=== PATIENT | female | born 1945 | race Caucasian/White ===

== ENCOUNTER → 2016-10-07 | Outpatient (CLI) | payer OTHER, MEDICAID ==
[2015-01-19 10:35] VITALS: BP 118/60
--- NOTE | 2016-10-09 17:10 | MG ---
HISTORY: SCREENING Comparison: Multiple priors dating back to October 21, 2007 FINDINGS: Bilateral CC and MLO projections of the right and left breast were obtained. Scattered fibroglandul ar tissue is seen to be present without significant interval change. No suspicious architectural di stortion, mass or clustered microcalcifications can be observed to suggest malignancy. No skin thic kening or nipple retraction is appreciated. No pathological lymphadenopathy can be identified. Roge ign-appearing calcifications are noted within the right and left breast. There is a stable benign ap pearing sub cm nodule in the central posterior left breast. IMPRESSION: NO RADIOGRAPHIC EVIDENCE OF MALIGNANCY. ACR CATEGORY 2 - benign findings. FOLLOW-UP EXAM 1 YEAR. Diagnostic CAD was utilized and reviewed. * 0 (ZERO) - ASSESSMENT INCOMPLETE; ADDITIONAL IMAGING IS NEEDED. * 1/1 (ONE) - NEGATIVE. * 2/II (TWO) - BENIGN FINDINGS. * 3/III (THREE) - PROBABLY BENIGN FINDING; SHORT INTERVAL FOLLOW-UP SUGGESTED. * 4/IV (FOUR) - SUSPICIOUS ABNORMALITY; BIOPSY SHOULD BE CONSIDERED. * 5/V (FIVE) - HIGHLY SUSPICIOUS OF MALIGNANCY; BIOPSY SHOULD BE PERFORMED. A NEGATIVE X-RAY REPORT SHOULD NOT DELAY BIOPSY IF A DOMINANT OR CLINICALLY SUSPICIOUS MASS IS PRESENT; 4 TO 8 PERCENT OF CANCERS ARE NOT IDENTIFIED BY X-RAY. A NEG ATIVE REPORT MAY REINFORCE THE CLINICAL IMPRESSION. ADENOSIS AND DENSE BREASTS MAY OBSCURE AN UNDER LYING NEOPLASM. Reported By:
== END ==
LOC: RAD 13:06
PROVIDERS: ATTEND Nurse Practitioner Family
DX: Z12.31 Encounter for screening mammogram for malignant neoplasm of breast (principal)
CPT/HCPCS: 77067

== ENCOUNTER → 2016-12-17 | Outpatient (CLI) | payer OTHER, MEDICAID ==
[2015-01-19 10:35] VITALS: BP 118/60
--- NOTE | 2016-12-18 16:24 | RAD ---
HISTORY: Nontraumatic pain Study: 2 views of the left tibia and fibula. Comparison: None Findings: No acute fractures or dislocations. No significant soft tissue abnormality can be identified. IMPRESSION: 1. No acute abnormalities of the left tibia and fibula. Reported By:
== END ==
LOC: RAD 16:06
PROVIDERS: ATTEND Nurse Practitioner Family
DX: M79.605 Pain in left leg (principal)
CPT/HCPCS: 73590

== ENCOUNTER → 2017-01-09 | Outpatient (CLI) | payer OTHER, MEDICAID ==
[2015-01-19 10:35] VITALS: BP 118/60
--- NOTE | 2017-01-09 16:42 | RAD ---
Examination: Left ankle, three views History: Pain no trauma Findings: No acute fracture, dislocation or bone destruction. The ankle mortise is symmetrically pres erved. No pathologic calcification is seen. Calcaneal enthesophytes are incidentally observed. Impression: No acute ankle abnormality demonstrated. Reported By:
--- NOTE | 2017-01-09 16:48 | RAD ---
Examination: Left foot, three views History: Joint pain no trauma Findings: No evidence for fracture, bone destruction, pathologic calcification. Calcaneal spurs are p resent. There is mild degenerative change at the 1st MTP joint. Osteopenia consistent with age. Impression: No acute process identified, see above. Calcaneal enthesophytes. Reported By:
== END ==
LOC: RAD 14:15
PROVIDERS: ATTEND Nurse Practitioner Family
DX: M25.572 Pain in left ankle and joints of left foot (principal)
CPT/HCPCS: 73610; 73630

== ENCOUNTER 2017-01-11 11:26 | Emergency (ER) | payer OTHER, MEDICAID ==
[2017-01-11 11:36] VITALS: BP 149/67; BMI 32.9
--- NOTE | 2017-01-11 12:19 | DR.GENAD ---
HPI - PCP Primary Care Physician: Josef - Complaint/Symptoms Chief Complaint Doctors Comments: Patient states she got dizzy and fell in the bathroom hitting her head on the bath tube about six hours ago and states she was unable to get up. EMS came to help her but she was having severe neck, head and chest pain but refused to come to the ER. States the pain got worst and she decided to come to the emergency room. She is having xiphoid pain that is intermittent with SOB, but denies nausea vomiting, cold or cough or blurred vision. States she is a patient of Ci[facility]. States she cannot take aspirins and she has not had a nitroglycerin because the sewing line baler told her not to take ASA because she has CHF. Chief Complaint:: "I have been feeling bad the past few days. This morning I got really dizzy and fell on my left side. I tried to just let it ease off, but it has gotten too bad. My chest is hurting and I can't breath." - Nurses notes reviewed Nurses Notes Review: Yes - Source History Provided: Patient - Mode of Arrival Mode of Arrival: EMS - Timing Onset of Chief Complaint: 01/11/17 Came on: Suddenly - Duration Duration: Intermittent How lon Duration: Hours - Location Location: xiphoid chest pain; left frontal head pain - Severity Severity: Moderate - Modifying Factors Worsens:: movement Improves:: nothing PMH - PMH Past Medical History: Yes Past Medical History: Arthritis, COPD, Diabetes, GERD, Hypertension Past Surgical History: Yes Surgical History: Abdominal Surgery, Cholecystectomy, Hysterectomy, Other Past Surgical History Comment: Abdomen - Family History History of Family Medical Conditions: Yes Family Medical History: Cancer, [place], Coronary Artery Disease, Sudden Cardiac , Hypertension - Social History Does patient currently use any type of tobacco product: No Have you used tobacco products in the last 12 months: No Type of Tobacco Use: None Does any household member use tobacco: No Alcohol Use: None Do you use any recreational Drugs:: No Lives With: Alone Lives Where: Home - infectious screening In the last 2 months have you had wt loss of >10#?: NO Have you had fever, night sweats or hemotysis?: No Have you traveled outside the country in the last 6 months?: No Isolation: Standard ROS - Review of Systems Constitutional: No Symptoms Reported, Weakness. negative: See HPI, Chills, Diaphoresis, Fever, Malaise, Irritable, Fatigue, Loss of Appetite, Other Eyes: No Symptoms Reported. negative: See HPI, Eye Pain, Blurred Vision, Tearing, Discharge, Photophobia, Diplopia, Other ENTM: No Symptoms Reported Respiratoy: No Symptoms Reported, Short of Breath. negative: See HPI, Productive Cough, Non-Productive Cough, Moist Cough, Dry Cough, Hacking Cough, Barking Cough, Brassy Cough, Orthopnea, Stridor, Wheezing, Hemoptysis, Other Cardiovascular: No Symptoms Reported, Chest Pain. negative: See HPI, Edema, Palpitations, Syncope, Cyanosis, Skin Mottling, Other Gastrointestinal/Abdominal: No Symptoms Reported. negative: See HPI, Abdominal Pain, Constipation, Diarrhea, Nausea, Vomiting, Food Intolerance, Other Genitourinary: No Symptoms Reported. negative: See HPI, Discharge, Dysuria, Frequency, Hematuria, Pain, Bleeding, Other Neurological: No Symptoms Reported, Headache, Weakness. negative: See HPI, Anxiety, Depressed, Emotional Problems, Numbness, Paresthesia, Pre-existing Deficit, Seizure, Tingling, Tremors, Dizziness, Problems Walking, Speech Problem , Other Musculoskeletal: No Symptoms Reported Integumentary: No Symptoms Reported. negative: See HPI, Change in Color, Change in Hair/Nails, Dryness, Lesions, Lumps, Rash, Itching, Wound, Bruises, Juandice, Other Hematologic/Lymphatic: No Symptoms Reported. negative: See HPI, Anemia, Blood Clots, Easy Bleeding, Easy Bruising, Swollen Glands, Lymphadenopathy, Other Endocrine: No Symptoms Reported Psychiatric: No Symptoms Reported. negative: See HPI, Anxiety, Depression, Hallucinations, Excessive crying, Suicidal, Other PE - Vital Signs Vitals: Temperature 97.7 F Pulse Rate 73 Respiratory Rate 18 Blood Pressure [Right Arm] 175/78 Blood Pressure [Left Arm] 147/79 Blood Pressure 149/67 O2 Sat by Pulse Oximetry 98 - General Limitations: No Limitations General Appearance: Alert, In Distress (mild) - Head Head Exam: Normal Inspection, Atraumatic, Normocephalic - Eyes Eye exam: Normal Appearance, PERRL, EOMI. negative: Scleral Icterus, Conjunctival Injection, Nystagmus, Miosis, Mydrasis, Periorbital Swelling, Periorbital Tenderness, Other - ENT ENT Exam: Normal Exam, Normal Oropharynx, Normal External Ear Exam, Mucous Membranes Moist, TM's Normal Bilaterally External Ear Exam: Normal External Inspection TM/Canal Exam: Bilateral Normal Nose Exam: Normal Nose Exam Mouth Exam: Normal Inspection Throat Exam: Normal Inspection - Neck Neck Exam: Normal Inspection, Full ROM, Trachea Midline. negative: Tenderness, Meningismus, Lymphadenopathy, Thyromegaly, Other - Chest Chest Inspection: Normal Inspection, Symmetric Chest Wall Rise - Respiratory Respiratory Exam: Normal Lung Sounds Bilat Respiratory Exam: Bilateral Clear to Auscultation - Cardiovascular Cardiovascular Exam: Regular Rate, Normal Rhythm, Normal Heart Sounds - Abdominal Exam Abdominal Exam: Normal Inspection, Normal Bowel Sounds, Soft Abdominal Tenderness: negative: RUQ, RLQ, LUQ, LLQ, Epigastrium, Suprapubic, Diffuse, Mild, Moderate, Severe, Other - Extremities Extremities Exam: Normal Inspection, Full ROM, Normal Capillary Refill. negative: Tenderness, Edema, Joint Swelling, Calf Tenderness, Other - Back Back Exam: Normal Inspection, Full ROM - Neurologic Neurological Exam: Alert, Oriented X3, CN II-XII Intact, Reflexes Normal. negative: Normal Gait (gait not tested) - Psychiatric Psychiatric Exam: Normal Affect, Normal Mood - Skin Skin Exam: Warm, Dry, Intact, Normal Color ROR - Labs Reviewed Laboratory Results Reviewed?: Yes (all labs and x-ray results reviewed and discussed with patient ) Result Diagrams: 01/11/17 12:37 01/11/17 12:37 Laboratory: WBC 6.3 X10^3/uL (3.6-10.0) 01/11/17 12:37 RBC 4.91 X10^6/uL (3.5-5.4) 01/11/17 12:37 Hgb 10.8 g/dL (12.0-16.0) L 01/11/17 12:37 Hct 35.5 % (36.0-47.0) L 01/11/17 12:37 MCV 72.3 fL (80.0-100.0) L 01/11/17 12:37 MCH 22.1 pg (27.0-34.0) L 01/11/17 12:37 MCHC 30.5 g/dL (33.0-35.0) L 01/11/17 12:37 RDW 17.2 % (11.6-16.5) H 01/11/17 12:37 Plt Count 351 X10^3/uL (150.0-450.0) 01/11/17 12:37 Plt Count Comment Adequate (ADEQUATE) 01/11/17 12:37 MPV 7.7 fL (7.4-11.0) 01/11/17 12:37 Neut % 55.2 % (42.0-75.0) 01/11/17 12:37 Lymph % 35.0 % (21.0-51.0) 01/11/17 12:37 Wolfe % 6.7 % (0.0-13.0) 01/11/17 12:37 Eos % 2.4 % (0.9-2.9) 01/11/17 12:37 Baso % 0.7 % (0.2-1.0) 01/11/17 12:37 Neut # 3.5 x10^3/uL (2.2-4.8) 01/11/17 12:37 Lymph # 2.2 X10^3/uL (1.3-2.9) 01/11/17 12:37 Wolfe # 0.4 x10^3/uL (0.3-0.8) 01/11/17 12:37 Eos # 0.1 x10^3/uL (0.0-0.2) 01/11/17 12:37 Baso # 0.0 X10^3/uL (0.0-0.1) 01/11/17 12:37 Absolute Nucleated RBC 0.1 /100WBC 01/11/17 12:37 Plt Morphology Comment Normal (NORMAL) 01/11/17 12:37 RBC Morphology Abnormal (NORMAL) A 01/11/17 12:37 Hypochromasia 1+ A 01/11/17 12:37 Anisocytosis Slight A 01/11/17 12:37 Microcytosis 1+ A 01/11/17 12:37 INR Target Range - 01/11/17 12:37 INR 0.99 (0.8-1.3) 01/11/17 12:37 PTT 28.5 SECONDS (22.9-36.5) 01/11/17 12:37 PTT Comment - 01/11/17 12:37 Sodium 142 mmol/L (136-145) 01/11/17 12:37 Corrected Sodium 145 mmol/L (136-145) 01/11/17 12:37 Potassium 4.1 mmol/L (3.5-5.1) 01/11/17 12:37 Chloride 107 mmol/L (98-107) 01/11/17 12:37 Carbon Dioxide 29.6 mmol/L (21-32) 01/11/17 12:37 BUN 11 mg/dL (7-18) 01/11/17 12:37 Creatinine 0.81 mg/dL (0.55-1.02) 01/11/17 12:37 Est GFR (MDRD) Af Amer > 60 (>60) 01/11/17 12:37 Est GFR (MDRD) Non-Af > 60 (>60) 01/11/17 12:37 Glucose 231 mg/dL (65-99) H 01/11/17 12:37 Calcium 9.4 mg/dL (8.5-10.1) 01/11/17 12:37 Corrected Calcium TNP 01/11/17 12:37 Magnesium 2.6 mg/dL (1.7-2.9) 01/11/17 12:37 Total Bilirubin 0.40 mg/dL (0.2-1.0) 01/11/17 12:37 AST 18 Units/L (15-37) 01/11/17 12:37 ALT 19 Units/L (12-78) 01/11/17 12:37 Alkaline Phosphatase 142 Units/L (46-116) H 01/11/17 12:37 Creatine Kinase 40 Units/L (26-192) 01/11/17 12:37 CK-MB (CK-2) < 1.0 ng/mL (0-4.0) 01/11/17 12:37 CK/CKMB % Calc 2.5 % (<4) 01/11/17 12:37 Troponin I < 0.02 ng/mL (0-1.5) 01/11/17 12:37 Total Protein 8.1 g/dL (6.4-8.2) 01/11/17 12:37 Albumin 3.6 g/dL (3.4-5.0) 01/11/17 12:37 Globulin 4.5 g/dL (2.5-4.5) 01/11/17 12:37 Albumin/Globulin Ratio 0.8 Ratio (1.1-2.1) L 01/11/17 12:37 - XRAY XRAY Interpreted by: Radiologist (CT cervical spine: No evidence of acute cervical spine fracture or subluxation.), Both (CXR: No acute cardiopulmonary process identified) XRAY Findings: cT head: No evidence of acute intracranial abnormality - Diagnosis Discharge Problem: Cervical paraspinal muscle spasm, Diabetes mellitus, Cervical spine arthritis Fall at home Qualifiers: Encounter type: initial encounter Qualified Code(s): W19.XXXA - Unspecified fall, initial encounter; Y92.099 - Unspecified place in other non-institutional residence as the place of occurrence of the external cause; Y92.099 - Unspecified place in other non-institutional residence as the place of occurrence of the external cause Contusion of head Qualifiers: Encounter type: initial encounter - Discharge Plan Disposition: HOME, SELF-CARE Condition: Stable - Follow ups/Referrals Follow ups/Referrals: GALINA BAHENA [Primary Care Provider] - 3 days - Instructions Instructions: Fall Prevention in the Home, [id number], Head Injury, Adult, [id number], Degenerative Disk Disease, Type 2 Diabetes Mellitus, Adult, Easy- to-Read
[2017-01-11 12:55] LABS: BASOPHILS % (AUTO) 0.7 % (0.2-1.0); EOSINOPHILS # (AUTO) 0.1 x10^3/uL (0.0-0.2); EOSINOPHILS % (AUTO) 2.4 % (0.9-2.9); HEMATOCRIT 35.5 % (36.0-47.0); HEMOGLOBIN 10.8 g/dL (12.0-16.0); LYMPHOCYTES # (AUTO) 2.2 X10^3/uL (1.3-2.9); MEAN CORPUSCULAR HEMOGLOBIN 22.1 pg (27.0-34.0); MEAN CORPUSCULAR HGB CONC 30.5 g/dL (33.0-35.0); MEAN CORPUSCULAR VOLUME 72.3 fL (80.0-100.0); MEAN PLATELET VOLUME 7.7 fL (7.4-11.0); MONOCYTES # (AUTO) 0.4 x10^3/uL (0.3-0.8); MONOCYTES % (AUTO) 6.7 % (0.0-13.0); NEUTROPHILS # (AUTO) 3.5 x10^3/uL (2.2-4.8); NEUTROPHILS % (AUTO) 55.2 % (42.0-75.0); PLATELET COUNT 351 X10^3/uL (150.0-450.0); RED BLOOD COUNT 4.91 X10^6/uL (3.5-5.4); RED CELL DISTRIBUTION WIDTH 17.2 % (11.6-16.5); WHITE BLOOD COUNT 6.3 X10^3/uL (3.6-10.0)
[2017-01-11 13:03] LABS: PLATELET MORPHOLOGY COMMENT NORMAL (NORMAL)
[2017-01-11 13:04] LABS: ANISOCYTOSIS SLIGHT; HYPOCHROMASIA 1+; MICROCYTOSIS 1+
--- NOTE | 2017-01-11 13:06 | RAD ---
Examination: Portable AP chest History: Chest pain and SOB Comparison reference: 02/15/2014 Findings: Continued normal heart size with essentially clear lungs and pleural spaces. There is no ev idence for pneumonia, pneumothorax, pulmonary edema or large pleural effusion. Impression: No acute process identified. Reported By:
[2017-01-11 13:08] LABS: BLOOD UREA NITROGEN 11 mg/dL (7-18); CALCIUM 9.4 mg/dL (8.5-10.1); CARBON DIOXIDE 29.6 mmol/L (21-32); CHLORIDE 107 mmol/L (98-107); COR NA(FOR HYPERGLY) 145 mmol/L (136-145); CREATININE 0.81 mg/dL (0.55-1.02); SODIUM 142 mmol/L (136-145); TROPONIN I < 0.02 ng/mL (0-1.5); eGFR BLACK RACES > 60 (>60); eGFR NON BLACK RACES > 60 (>60)
[2017-01-11 13:12] LABS: ALANINE AMINOTRANSFERASE 19 Units/L (12-78); ALBUMIN 3.6 g/dL (3.4-5.0); ALKALINE PHOSPHATASE 142 Units/L (46-116); ASPARTATE AMINO TRANSFERASE 18 Units/L (15-37); CKMB % 2.5 % (<4); CREATINE KINASE 40 Units/L (26-192); CREATINE KINASE MB < 1.0 ng/mL (0-4.0); MAGNESIUM 2.6 mg/dL (1.7-2.9); TOTAL PROTEIN 8.1 g/dL (6.4-8.2)
--- NOTE | 2017-01-11 13:15 | CT ---
STUDY: CT HEAD WITHOUT CONTRAST HISTORY: Fall. Left hip pain and chest wall. COMPARISON: February 13, 2014. TECHNIQUE: Multiple axial images of the head were obtained from the skull base to the vertex without administration of IV contrast. Automated exposure control (AEC) was utilized to adjust the MA and/or kV. Findings: The sulci, cisterns and ventricles are prominent consistent with diffuse volume loss. There are confluent and scattered foci of low attenuation in the periventricular and subcortical whit e matter of both hemispheres. This is a nonspecific finding which likely represents microangiopathic change in a patient of this age. There is no evidence of acute territorial infarction, hemorrhage, mass, mass effect or midline shift. There are no abnormal extra-axial fluid collections. There is no evidence of acute osseous abnormality or significant soft tissue swelling. IMPRESSION: 1. No evidence of acute intracranial abnormality. 2. Nonspecific white matter change and volume loss as described. 3. If there remains strong clinical concern for acute intracranial abnormality, then an MRI examinati on should be considered for further evaluation. Reported By:
--- NOTE | 2017-01-11 13:35 | CT ---
STUDY: CT OF THE CERVICAL SPINE HISTORY: Patient felt dizzy this morning and fell on left side. Left hip and chest wall pain. Technique: Multiple axial images of the cervical spine were obtained from the skull base to the thora cic inlet without administration of IV contrast. Sagittal and coronal reformats were performed and r eviewed. Automated exposure control (AEC) was utilized to adjust the MA and/or kV. Comparison: None. Findings: There is straightening of usual cervical lordosis. There is subtle grade 1 anterolisthesis of C4 on C 5. There is multilevel degenerative disc disease and degenerative endplate change. This is probably m ost notable at C6/7. There is no evidence of acute fracture or subluxation. Facet alignment is within normal limits bilaterally. There is multilevel facet arthropathy. The spinous processes are intact. There is no significant prevertebral soft tissue swelling. The lateral masses of C1, and the C1/C2 re lationship are normal. The odontoid process is intact. The occipital condyles and their relationship with C1 are normal. IMPRESSION: 1. No evidence of acute cervical spine fracture or subluxation. 2. Straightening of the usual cervical lordosis. This finding may be positional or seceondary to mus melinda spasm. Clinical correlation is recommended. 3. Multilevel cervical spondylosis. Reported By:
== END 2017-01-11 15:26 | disposition home or self-care (01) ==
LOC: ER 11:28
DX: S00.93XA Contusion of unspecified part of head, initial encounter (principal); M62.838 Other muscle spasm; E11.9 Type 2 diabetes mellitus without complications; M46.92 Unspecified inflammatory spondylopathy, cervical region; R07.89 Other chest pain; W19.XXXA Unspecified fall, initial encounter; Y92.099 Unspecified place in other non-institutional residence as the place of occurrence of the external cause
CPT/HCPCS: 36415; 70450; 71010; 72125; 80053; 82550; 82553; 83735; 84484; 85025; 85610; 85730; 93005; 93010; 99283

== ENCOUNTER 2017-02-13 09:14 | Day surgery (SDC) | payer OTHER, MEDICAID ==
[~2017-02-13 09:14] MED LIST: DIPRIVAN VIAL 20 ML ONE
[2017-02-13] MEDS ORDERED: D5 LR 1000 ML 1,000 ML IV ONE (09:31)
[2017-02-13] MEDS ORDERED: NS 1000 ML 1,000 ML ONE (09:46)
[2017-02-13] MEDS ORDERED: DIPRIVAN VIAL 20 ML ONE (10:33)
[2017-02-13 11:47] VITALS: BP 110/71
== END 2017-02-13 11:10 | disposition home or self-care (01) ==
LOC: SURG1 09:14
PROVIDERS: ATTEND Internal Medicine Gastroenterology
PROC: 0D757ZZ Dilation of Esophagus, Via Natural or Artificial Opening (ICD-10-PCS; principal; 2017-02-13 12:00)
PROC: 0DB68ZX Excision of Stomach, Via Natural or Artificial Opening Endoscopic, Diagnostic (ICD-10-PCS; principal; 2017-02-13 12:00)
PROC: 0DJ08ZZ Inspection of Upper Intestinal Tract, Via Natural or Artificial Opening Endoscopic (ICD-10-PCS; principal; 2017-02-13 12:00)
DX: R13.19 Other dysphagia (principal); R10.13 Epigastric pain; R11.0 Nausea; K21.9 Gastro-esophageal reflux disease without esophagitis; K31.89 Other diseases of stomach and duodenum; K44.9 Diaphragmatic hernia without obstruction or gangrene; K20.8 Other esophagitis; K22.2 Esophageal obstruction
CPT/HCPCS: 99100; A4217; J3490; J7120

== ENCOUNTER 2017-02-17 21:13 | Emergency (ER) | payer OTHER, MEDICAID ==
[2017-02-17 21:25] VITALS: BMI 32.1
--- NOTE | 2017-02-17 21:39 | DR.GENAD ---
HPI - PCP Primary Care Physician: Lot - Complaint/Symptoms Chief Complaint Doctors Comments: Patient states that she bent forward over the commode heard a pop of the right lower ribs. The ain is 10, sharp, worse with movement. Chief Complaint:: RT side/rib pain. - Source History Provided: Patient - Mode of Arrival Mode of Arrival: Ambulatory - Timing Onset of Chief Complaint: 02/17/17 PMH - PMH Past Medical History: Yes Past Medical History: Arthritis, CHF, COPD, CVA, Diabetes, GERD Past Medical History Comment: blind, fibromyalgia Past Surgical History: Yes Surgical History: Cholecystectomy, Hysterectomy - Family History History of Family Medical Conditions: No Family Medical History: Cancer, [place], Coronary Artery Disease, Sudden Cardiac , Hypertension - Social History Does patient currently use any type of tobacco product: No Have you used tobacco products in the last 12 months: No Type of Tobacco Use: None Alcohol Use: None Do you use any recreational Drugs:: No Lives With: Alone Lives Where: Home - infectious screening In the last 2 months have you had wt loss of >10#?: NO Have you had fever, night sweats or hemotysis?: No Have you traveled outside the country in the last 6 months?: No ROS - Review of Systems Eyes: No Symptoms Reported ENTM: No Symptoms Reported Respiratoy: No Symptoms Reported Cardiovascular: No Symptoms Reported Gastrointestinal/Abdominal: No Symptoms Reported Genitourinary: No Symptoms Reported Neurological: No Symptoms Reported Musculoskeletal: Rib(s) (right anterior lateral lower ribs) Integumentary: No Symptoms Reported Hematologic/Lymphatic: No Symptoms Reported Endocrine: No Symptoms Reported Psychiatric: No Symptoms Reported All Other Systems: Reviewed and Negative PE - Vital Signs Vitals: Temperature 98.7 F Pulse Rate [Right Brachial] 57 Pulse Rate 86 Respiratory Rate 16 Blood Pressure [Right Arm] 169/70 Blood Pressure [Left Arm] 147/79 Blood Pressure 150/72 O2 Sat by Pulse Oximetry 93 - General General Appearance: Alert, In No Apparent Distress - Head Head Exam: Normal Inspection, Atraumatic - Eyes Eye exam: Normal Appearance, PERRL, EOMI - ENT ENT Exam: Normal Exam External Ear Exam: Normal External Inspection TM/Canal Exam: Bilateral Normal Nose Exam: Normal Nose Exam Mouth Exam: Normal Inspection Throat Exam: Normal Inspection - Neck Neck Exam: Normal Inspection - Chest Chest Inspection: Normal Inspection, Tenderness (Tenderness to right anterior later lower ribs) - Respiratory Respiratory Exam: Normal Lung Sounds Bilat Respiratory Exam: Bilateral Clear to Auscultation - Cardiovascular Cardiovascular Exam: Regular Rate, Normal Rhythm - Abdominal Exam Abdominal Exam: Normal Inspection Abdominal Tenderness: negative: RUQ, RLQ, LUQ, LLQ, Epigastrium, Suprapubic, Diffuse, Mild, Moderate, Severe, Other - Extremities Extremities Exam: Normal Inspection - Back Back Exam: Normal Inspection, Full ROM - Neurologic Neurological Exam: Alert, Oriented X3, CN II-XII Intact - Psychiatric Psychiatric Exam: Normal Affect - Skin Skin Exam: Warm, Dry Course - Education/Counseling Educated On: Treatment, Diagnosis, Prognosis, Needs for Follow Up ROR - XRAY XRAY Interpreted by: Radiologist (Rib series: No displaced right sided rib fractures are identified. The heart size is normal and the lungs are clear without pneumothorax. Impression: No displaced rib fracture or acute chest process.) - Diagnosis Discharge Problem: Contusion of rib on right side Qualifiers: Encounter type: initial encounter Qualified Code(s): S20.211A - Contusion of right front wall of thorax, initial encounter - Discharge Plan Condition: Stable - Follow ups/Referrals Follow ups/Referrals: NFD,None [Primary Care Provider] - 3 days - Instructions
[2017-02-17] MEDS ORDERED: TORADOL 60 MG VIAL IM ONE (21:44)
[2017-02-17] MEDS ORDERED: TORADOL 60 MG VIAL ONE (21:46)
[2017-02-17 22:32] VITALS: BP 169/70
--- NOTE | 2017-02-17 22:40 | RAD ---
Right rib series, 5 views Indication: Right-sided rib pain after bending forward Comparison: None Findings: No displaced right-sided rib fractures are identified. The heart size is normal and the sheri gs are clear without pneumothorax. Impression: No displaced rib fracture or acute chest process. Reported By:
== END 2017-02-17 22:52 | disposition home or self-care (01) ==
LOC: ER 21:33
DX: S20.211A Contusion of right front wall of thorax, initial encounter (principal); Y33.XXXA Other specified events, undetermined intent, initial encounter; Y92.9 Unspecified place or not applicable
CPT/HCPCS: 71111; 96372; 99282; J1885

== ENCOUNTER 2017-04-03 11:13 | Observation (INO) | payer OTHER, MEDICAID ==
[2017-04-03 11:44] LABS: BASOPHILS % (AUTO) 0.7 % (0.2-1.0); EOSINOPHILS # (AUTO) 0.1 x10^3/uL (0.0-0.2); EOSINOPHILS % (AUTO) 1.7 % (0.9-2.9); HEMOGLOBIN 9.1 g/dL (12.0-16.0); LYMPHOCYTES # (AUTO) 1.8 X10^3/uL (1.3-2.9); LYMPHOCYTES % (AUTO) 28.3 % (21.0-51.0); MEAN CORPUSCULAR HEMOGLOBIN 21.3 pg (27.0-34.0); MEAN CORPUSCULAR HGB CONC 30.2 g/dL (33.0-35.0); MEAN CORPUSCULAR VOLUME 70.6 fL (80.0-100.0); MEAN PLATELET VOLUME 7.7 fL (7.4-11.0); MONOCYTES # (AUTO) 0.4 x10^3/uL (0.3-0.8); MONOCYTES % (AUTO) 5.6 % (0.0-13.0); NEUTROPHILS % (AUTO) 63.7 % (42.0-75.0); PLATELET COUNT 352 X10^3/uL (150.0-450.0); RED BLOOD COUNT 4.25 X10^6/uL (3.5-5.4); RED CELL DISTRIBUTION WIDTH 17.8 % (11.6-16.5); WHITE BLOOD COUNT 6.3 X10^3/uL (3.6-10.0)
[2017-04-03 11:52] LABS: BLOOD UREA NITROGEN 9 mg/dL (7-18); CALCIUM 8.6 mg/dL (8.5-10.1); CARBON DIOXIDE 28.5 mmol/L (21-32); CHLORIDE 104 mmol/L (98-107); COR NA(FOR HYPERGLY) 143 mmol/L (136-145); CREATININE 0.83 mg/dL (0.55-1.02); SODIUM 139 mmol/L (136-145); TROPONIN I < 0.02 ng/mL (0-1.5); eGFR BLACK RACES > 60 (>60); eGFR NON BLACK RACES > 60 (>60)
[2017-04-03 11:54] LABS: HYPOCHROMASIA 2+; MICROCYTOSIS SLIGHT; PLATELET MORPHOLOGY COMMENT NORMAL (NORMAL)
[2017-04-03 11:56] LABS: B-TYPE NATRIURETIC PEPTIDE 57.6 pg/mL (0-79)
--- NOTE | 2017-04-03 12:03 | RAD ---
HISTORY: Chest pain, left-sided chest pain radiating into the neck. Study: Single-view chest, done portably Comparison: 02/17/2017. Findings: Cardiac monitoring electrodes are noted on the chest. Trachea is midline. The heart size is upper nor mal with aortic uncoiling. Stable increased interstitial markings are present involving both lungs. N o consolidation or pneumothorax is seen. Both costophrenic angles are cut off on the chest image. Oss eous structures are intact. IMPRESSION: Hypertensive configuration. Stable increased interstitial markings involving both lungs. No acute abnormality is seen. Reported By:
[2017-04-03 12:06] LABS: ALANINE AMINOTRANSFERASE 14 Units/L (12-78); ALKALINE PHOSPHATASE 159 Units/L (46-116); ASPARTATE AMINO TRANSFERASE 19 Units/L (15-37); CKMB % 2.2 % (<4); COR CA(FOR HYPOALB) 9.4 mg/dL (8.5-10.1); CREATINE KINASE 45 Units/L (26-192); CREATINE KINASE MB < 1.0 ng/mL (0-4.0); MAGNESIUM 2.1 mg/dL (1.7-2.9); TOTAL PROTEIN 7.1 g/dL (6.4-8.2)
--- NOTE | 2017-04-03 12:25 | DR.CP ---
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 Relieved with nitro, painfree on arrival but has a headache Chief Complaint:: pt stated she was doing laundry and started having chest pain. ems gave her 2 nitro and she is now pain free but is short of breath. - Reviewed Nurses Notes Review: Yes - Source History Provided: Patient - Mode of Arrival Mode of Arrival: EMS - Timing Onset of Chief Complaint: 04/03/17 Came on: Suddenly Pain: Resolved - Location Chest Pain Radiation Location: Left Jaw - Context Prehospital Care: Oxygen, IV, Monitor, SL Nitro - Quality Quality: Heavy - Severity Severity: Moderate - Modifying Factors Worsens: Nothing Impoves: NTG - Associated Signs and Symptoms Associated Signs and Symptoms: Shortness of Breath. denies: Palpitations, Diaphoresis, Abdominal Pain, Nausea/Vomiting, Calf Pain/Swelling, Chest Rash PMH - PMH Past Medical History: Yes Past Medical History: Arthritis, CHF, COPD, CVA, Diabetes, GERD Past Medical History Comment: clean cardiac cath 2-3 yrs ago per pt Past Surgical History: Yes Surgical History: Cholecystectomy, Hysterectomy - Family History History of Family Medical Conditions: Yes Family Medical History: Cancer, [place], Coronary Artery Disease, Sudden Cardiac , Hypertension - Social History Does patient currently use any type of tobacco product: No Have you used tobacco products in the last 12 months: No Type of Tobacco Use: None Does any household member use tobacco: No Alcohol Use: None Do you use any recreational Drugs:: No Lives With: Family Lives Where: Home - infectious screening In the last 2 months have you had wt loss of >10#?: NO Have you had fever, night sweats or hemotysis?: No Have you traveled outside the country in the last 6 months?: No Isolation: Standard ROS - Review of Systems Constitutional: negative: Diaphoresis, Fever, Malaise, Weakness Eyes: No Symptoms Reported ENTM: No Symptoms Reported Respiratoy: Short of Breath Cardiovascular: Chest Pain. negative: Edema, Palpitations Gastrointestinal/Abdominal: Other (had EGD several weeks ago, ?gastritis and ? bacterial inf in stomach, hiatal hernia). negative: Nausea, Vomiting Neurological: Anxiety, Depressed, Emotional Problems, Other (recently lost spouse of 57 yrs) Musculoskeletal: No Symptoms Reported Integumentary: No Symptoms Reported Hematologic/Lymphatic: No Symptoms Reported Endocrine: No Symptoms Reported Psychiatric: Anxiety, Depression, Excessive crying All Other Systems: Reviewed and Negative PE - Vitals Vitals: Temperature 99.1 F Pulse Rate 71 Respiratory Rate 16 Blood Pressure [Right Arm] 169/70 Blood Pressure [Left Arm] 147/79 Blood Pressure 149/79 O2 Sat by Pulse Oximetry 98 - General Limitations: No Limitations General Appearance: Alert, In No Apparent Distress, Obese. negative: Appears Intoxicated, Anxious, Lethargic, Obtunded, In Distress - Head Head Exam: Normal Inspection, Normocephalic - Eyes Eye exam: Normal Appearance - ENT ENT Exam: Normal Exam - Chest Chest Inspection: Normal Inspection, Symmetric Chest Wall Rise. negative: Tenderness - Respiratory Respiratory Exam: Normal Lung Sounds Bilat. negative: Accessory Muscle Use, Chest Wall Tenderness Respiratory Exam: Bilateral Clear to Auscultation - Cardiovascular Cardiovascular Exam: Regular Rate, Normal Rhythm, Normal Heart Sounds. negative : Systolic Murmur, Diastolic Murmur, Rubs, Gallop, Clicks Pulse: Normal, Radial Edema: Normal - Abdominal Exam Abdominal Exam: Normal Inspection, Normal Bowel Sounds, Soft. negative: Tenderness, Guarding, Rebound - Extremities Extremities Exam: Normal Inspection, Full ROM. negative: Tenderness, Edema - Neurologic Neurological Exam: Alert, Oriented X3 - Psychiatric Psychiatric Exam: Normal Affect, Normal Mood ROR - Labs Reviewed Laboratory Results Reviewed?: Yes (cardiacs all ok. BNP normal ) Result Diagrams: 04/03/17 11:26 04/03/17 11:26 Laboratory: WBC 6.3 X10^3/uL (3.6-10.0) 04/03/17 11: RBC 4.25 X10^6/uL (3.5-5.4) 04/03/17 11:26 Hgb 9.1 g/dL (12.0-16.0) L 04/03/17 11:26 Hct 30.0 % (36.0-47.0) L 04/03/17 11:26 MCV 70.6 fL (80.0-100.0) L 04/03/17 11:26 MCH 21.3 pg (27.0-34.0) L 04/03/17 11: MCHC 30.2 g/dL (33.0-35.0) L 04/03/17 11:26 RDW 17.8 % (11.6-16.5) H 04/03/17 11:26 Plt Count 352 X10^3/uL (150.0-450.0) 04/03/17 11:26 Plt Count Comment Adequate (ADEQUATE) 04/03/17 11:26 MPV 7.7 fL (7.4-11.0) 04/03/17 11:26 Neut % 63.7 % (42.0-75.0) 04/03/17 11:26 Lymph % 28.3 % (21.0-51.0) 04/03/17 11:26 [place] % 5.6 % (0.0-13.0) 04/03/17 11:26 Eos % 1.7 % (0.9-2.9) 04/03/17 11:26 Baso % 0.7 % (0.2-1.0) 04/03/17 11:26 Neut # 4.0 x10^3/uL (2.2-4.8) 04/03/17 11:26 Lymph # 1.8 X10^3/uL (1.3-2.9) 04/03/17 11:26 [place] # 0.4 x10^3/uL (0.3-0.8) 04/03/17 11:26 Eos # 0.1 x10^3/uL (0.0-0.2) 04/03/17 11:26 Baso # 0.0 X10^3/uL (0.0-0.1) 04/03/17 11:26 Absolute Nucleated RBC 0.0 /100WBC 04/03/17 11:26 Plt Morphology Comment Normal (NORMAL) 04/03/17 11:26 RBC Morphology Abnormal (NORMAL) A 04/03/17 11:26 Hypochromasia 2+ A 04/03/17 11:26 Microcytosis Slight A 04/03/17 11:26 INR Target Range - 04/03/17 11:26 INR 0.98 (0.8-1.3) 04/03/17 11:26 PTT 29.1 SECONDS (22.9-36.5) 04/03/17 11:26 PTT Comment - 04/03/17 11:26 Sodium 139 mmol/L (136-145) 04/03/17 11:26 Corrected Sodium 143 mmol/L (136-145) 04/03/17 11:26 Potassium 3.6 mmol/L (3.5-5.1) 04/03/17 11:26 Chloride 104 mmol/L (98-107) 04/03/17 11:26 Carbon Dioxide 28.5 mmol/L (21-32) 04/03/17 11:26 BUN 9 mg/dL (7-18) 04/03/17 11:26 Creatinine 0.83 mg/dL (0.55-1.02) 04/03/17 11:26 Est GFR (MDRD) Af Amer > 60 (>60) 04/03/17 11:26 Est GFR (MDRD) Non-Af > 60 (>60) 04/03/17 11:26 Glucose 266 mg/dL (65-99) H 04/03/17 11:26 Calcium 8.6 mg/dL (8.5-10.1) 04/03/17 11:26 Corrected Calcium 9.4 mg/dL (8.5-10.1) 04/03/17 11:26 Magnesium 2.1 mg/dL (1.7-2.9) 04/03/17 11:26 Total Bilirubin 0.20 mg/dL (0.2-1.0) 04/03/17 11:26 AST 19 Units/L (15-37) 04/03/17 11:26 ALT 14 Units/L (12-78) 04/03/17 11:26 Alkaline Phosphatase 159 Units/L (46-116) H 04/03/17 11:26 Creatine Kinase 45 Units/L (26-192) 04/03/17 11:26 CK-MB (CK-2) < 1.0 ng/mL (0-4.0) 04/03/17 11:26 CK/CKMB % Calc 2.2 % (<4) 04/03/17 11:26 Troponin I < 0.02 ng/mL (0-1.5) 04/03/17 11:26 B-Natriuretic Peptide 57.6 pg/mL (0-79) 04/03/17 11:26 Total Protein 7.1 g/dL (6.4-8.2) 04/03/17 11:26 Albumin 3.0 g/dL (3.4-5.0) L 04/03/17 11:26 Globulin 4.1 g/dL (2.5-4.5) 04/03/17 11:26 Albumin/Globulin Ratio 0.7 Ratio (1.1-2.1) L 04/03/17 11:26 - XRAY XRAY Interpreted by: Radiologist XRAY Findings: nothing acute on PCXR - EKG Compared to prior EKG Dated: 04/03/17 Additional Notes - Additional Notes Additional Notes: nothing acute seen on EKG - Discharge Plan Condition: Stable - Follow ups/Referrals Follow ups/Referrals: GALINA VARGAS [Primary Care Provider] - 3 days - Instructions
[2017-04-03] MEDS ORDERED: NITROSTAT SL PRN (12:55)
[2017-04-03] MEDS: LOVENOX INJ 40 MG SYR SC SCH ×2 (16:16→20:52)
[2017-04-03] MEDS: NORCO 7.5/325 MG TAB PO PRN ×2 (16:17→22:24)
[2017-04-03 18:01] LABS: CKMB % 3.5 % (<4); CREATINE KINASE 40 Units/L (26-192); CREATINE KINASE MB 1.4 ng/mL (0-4.0); TROPONIN I < 0.02 ng/mL (0-1.5)
[2017-04-03] MEDS: SNACK - Diabetic Appropriate PO SCH (20:52)
[2017-04-03] MEDS: HumuLIN R SUBCUT PRN (21:14)
[2017-04-04 00:03] LABS: CKMB % 2.6 % (<4); TROPONIN I 0.1 ng/mL (0-1.5)
[2017-04-04] MEDS: VISTARIL PO PRN (00:19)
[2017-04-04 04:24] LABS: BASOPHILS # (AUTO) 0.1 X10^3/uL (0.0-0.1); BASOPHILS % (AUTO) 0.7 % (0.2-1.0); EOSINOPHILS # (AUTO) 0.1 x10^3/uL (0.0-0.2); EOSINOPHILS % (AUTO) 1.8 % (0.9-2.9); HEMATOCRIT 29.6 % (36.0-47.0); HEMOGLOBIN 9.1 g/dL (12.0-16.0); LYMPHOCYTES # (AUTO) 3.3 X10^3/uL (1.3-2.9); LYMPHOCYTES % (AUTO) 42.4 % (21.0-51.0); MEAN CORPUSCULAR HEMOGLOBIN 21.6 pg (27.0-34.0); MEAN CORPUSCULAR HGB CONC 30.7 g/dL (33.0-35.0); MEAN CORPUSCULAR VOLUME 70.5 fL (80.0-100.0); MEAN PLATELET VOLUME 7.6 fL (7.4-11.0); MONOCYTES # (AUTO) 0.4 x10^3/uL (0.3-0.8); MONOCYTES % (AUTO) 4.6 % (0.0-13.0); NEUTROPHILS # (AUTO) 3.9 x10^3/uL (2.2-4.8); NEUTROPHILS % (AUTO) 50.5 % (42.0-75.0); PLATELET COUNT 340 X10^3/uL (150.0-450.0); WHITE BLOOD COUNT 7.7 X10^3/uL (3.6-10.0)
[2017-04-04 04:39] LABS: HYPOCHROMASIA 2+; MICROCYTOSIS SLIGHT; PLATELET MORPHOLOGY COMMENT NORMAL (NORMAL)
[2017-04-04 04:40] LABS: ALANINE AMINOTRANSFERASE 14 Units/L (12-78); ALBUMIN 2.9 g/dL (3.4-5.0); ALKALINE PHOSPHATASE 137 Units/L (46-116); ASPARTATE AMINO TRANSFERASE 11 Units/L (15-37); BLOOD UREA NITROGEN 7 mg/dL (7-18); CALCIUM 8.4 mg/dL (8.5-10.1); CARBON DIOXIDE 30.6 mmol/L (21-32); CHLORIDE 107 mmol/L (98-107); CHOL/HDL RATIO 4.1 (0.0-5.0); CHOLESTEROL 157 mg/dL (0-200); COR CA(FOR HYPOALB) 9.3 mg/dL (8.5-10.1); COR NA(FOR HYPERGLY) 145 mmol/L (136-145); CREATININE 0.73 mg/dL (0.55-1.02); HDL CHOLESTEROL 38 mg/dL (40-60); SODIUM 142 mmol/L (136-145); TOTAL PROTEIN 6.8 g/dL (6.4-8.2); TRIGLYCERIDES 154 mg/dL (0-150); eGFR BLACK RACES > 60 (>60); eGFR NON BLACK RACES > 60 (>60)
[2017-04-04] MEDS: HumuLIN R SUBCUT PRN ×4 (06:53→21:45)
[2017-04-04] MEDS: NORCO 7.5/325 MG TAB PO PRN ×3 (06:58→22:33)
[2017-04-04] MEDS: LOVENOX INJ 40 MG SYR SC SCH ×2 (09:00→21:34)
[2017-04-04 09:28] VITALS: BMI 30.8
[2017-04-04] MEDS: ZOFRAN TAB 4 MG PO PRN (15:22)
[2017-04-04] MEDS: ZANTAC PO SCH (15:22)
--- NOTE | 2017-04-04 15:25 | DR.H&P ---
H&P - History & Physical for Day of: H&P Date: 04/03/17 - Chief Complaint Chief Complaint: CP - Allergies Allergies/Adverse Reactions: Allergies Allergy/AdvReac Type Severity Reaction Status Date / Time ciprofloxacin Allergy Verified 01/11/17 11:29 codeine Allergy Verified 01/11/17 11:29 levofloxacin Allergy Verified 01/11/17 11:29 morphine Allergy Verified 01/11/17 11:29 niacin Allergy Verified 01/11/17 11:29 promethazine Allergy Verified 01/11/17 11:29 topiramate Allergy Verified 01/11/17 11:29 - History of Present Illness History of Present Illness: 72white female who is an ER admission after presenting with complaints of chest pain patient was brought via EMS. Patient states she had onset of chest pain while doing laundry. Pain was relieved with nitroglycerin. Patient has a past medical history of COPD, coronary artery disease, diabetes, and arthritis. Plan to admit patient to rule out acute [place]. - Past Medical History Past Medical History: Arthritis, CHF, COPD, CVA, Diabetes, GERD - Past Surgical History Surgical History: Cholecystectomy, Hysterectomy, Other - Family History Family Medical History: Cancer, [place], Coronary Artery Disease, Sudden Cardiac , Hypertension - Social History Does patient currently use any type of tobacco product: No Have you used tobacco products in the last 12 months: No Type of Tobacco Use: None Does any household member use tobacco: No Alcohol Use: None Drug Use: None - Medications Home Medications: Clotrimazole/Betamethasone Dip [Clotrimazole-Betamethasone Crm] 1 applic TOP BID 04/03/17 [History Confirmed 04/03/17] Fenofibrate [TRICOR 160 MG *] 160 mg PO HS 04/03/17 [History Confirmed 04/03/17] Furosemide [LASIX TAB 20 MG *] 20 mg PO DAILY 04/03/17 [History Confirmed ] Gi Cocktail [LEVSIN/Maalox/Lidoc Visc (GI COCKTAIL) *] 30 ml PO TID 04/03/17 [ History Confirmed 04/03/17] Hydrocodone-Acet 7.5 mg/325 mg [NORCO 7.5 MG/325 MG *] 1 tab PO TID PRN [History Confirmed 04/03/17] - Review of Systems Constitutional: Weakness Eyes: No Symptoms Reported ENT: No Symptoms Reported Respiratory: Shortness of Breath Cardiovascular: Chest Pain, Edema, Light Headedness Gastrointestinal: No Symptoms Reported Genitourinary: No Symptoms Reported Musculoskeletal: Back Pain Skin: No Symptoms Reported Neurological: Weakness - Physical Exam Vital Signs: Temperature 96.6 F Pulse Rate [Left Radial] 62 Pulse Rate 71 Respiratory Rate 18 Blood Pressure [Right Arm] 182/77 Blood Pressure [Left Arm] 147/79 Blood Pressure 149/79 O2 Sat by Pulse Oximetry 97 Oriented: Normal Eyes: Normal Ear: Normal Nose: Normal Throat: Normal Respiratory: RLL Diminished, LLL Diminished Cardiovascular: Normal. negative: Edema : Normal Auscultation: Bowel Sounds: Normal Palpation: Normal Tenderness: Normal Skin: Decreased Turgur, Bruising Musculoskeletal: Right, Left, Shoulder, Back:Thoracic, Back:Lumbar Psychiatric: Anxiety, Depression Speech Pattern: Clear, Appropriate - Assessment/Plan (1) Chest pain Status: Acute Plan: ADMIT, SERIAL CE AND EKG'S. SUPPLEMENTAL O2, BP MONITORING. SSI, RESUME HOME MEDS. PAIN CONTROL (2) COPD (chronic obstructive pulmonary disease) Status: Chronic (3) Diabetes mellitus Status: Chronic (4) GERD (gastroesophageal reflux disease) Status: Chronic (5) Hypertension Status: Chronic
[2017-04-04] MEDS ORDERED: ATIVAN TAB 1 MG PO PRN (15:27)
--- NOTE | 2017-04-04 15:34 | PCM.PROG ---
Progress Note - Progress Note for Day of Date: 04/04/17 - Subjective Subjective: the patient is a 72-year-old white female who was admitted via ER last night with chest pain. Patient had serial cardiac enzymes and EKGs. This morning patient denies chest pain however continues to complain of weakness. Patient has a history of COPD plan to continue supplemental O2 current IV medication regimen and repeat a.m. labs. - Past Medical Family Social History Past Med/Fam/Surg Hx: No changes since H&P Allergies: Allergies ciprofloxacin Allergy (Verified 01/11/17 11:29) codeine Allergy (Verified 01/11/17 11:29) levofloxacin Allergy (Verified 01/11/17 11:29) morphine Allergy (Verified 01/11/17 11:29) niacin Allergy (Verified 01/11/17 11:) promethazine Allergy (Verified 01/11/17 11:29) topiramate Allergy (Verified 01/11/17 11:29) - Review of Systems ROS: No change since H&P - Vital Signs and I&O's Vital Signs: Temperature 96.6 F Pulse Rate [Left Radial] 62 Pulse Rate 71 Respiratory Rate 18 Blood Pressure [Right Arm] 182/77 Blood Pressure [Left Arm] 147/79 Blood Pressure 149/79 O2 Sat by Pulse Oximetry 97 Intake and Output: Intake & Output 04/02/17 04/03/17 04/04/17 04/05/17 11:59 11:59 11:59 11:59 Intake Total 1312 Balance 1312 - Physical Exam Oriented: Normal Eyes: Normal Ear: Normal Nose: Normal Throat: Normal Cardiovascular: Normal. negative: Edema : Normal Auscultation: Bowel Sounds: Normal Tenderness: Normal Skin: Decreased Turgur, Bruising Musculoskeletal: Right, Left, Shoulder, Back:Thoracic, Back:Lumbar Psychiatric: Anxiety, Depression Speech Pattern: Clear, Appropriate - Laboratory and Diagnostics Result Diagrams: 04/04/17 03:55 04/04/17 03:55 Labs: Laboratory WBC 7.7 X10^3/uL (3.6-10.0) 04/04/17 03:55 RBC 4.20 X10^6/uL (3.5-5.4) 04/04/17 03:55 Hgb 9.1 g/dL (12.0-16.0) L 04/04/17 03:55 Hct 29.6 % (36.0-47.0) L 04/04/17 03:55 MCV 70.5 fL (80.0-100.0) L 04/04/17 03:55 MCH 21.6 pg (27.0-34.0) L 04/04/17 03:55 MCHC 30.7 g/dL (33.0-35.0) L 04/04/17 03:55 RDW 18.0 % (11.6-16.5) H 04/04/17 03:55 Plt Count 340 X10^3/uL (150.0-450.0) 04/04/17 03:55 Plt Count Comment Adequate (ADEQUATE) 04/04/17 03:55 MPV 7.6 fL (7.4-11.0) 04/04/17 03:55 Neut % 50.5 % (42.0-75.0) 04/04/17 03:55 Lymph % 42.4 % (21.0-51.0) 04/04/17 03:55 [place] % 4.6 % (0.0-13.0) 04/04/17 03:55 Eos % 1.8 % (0.9-2.9) 04/04/17 03:55 Baso % 0.7 % (0.2-1.0) 04/04/17 03:55 Neut # 3.9 x10^3/uL (2.2-4.8) 04/04/17 03:55 Lymph # 3.3 X10^3/uL (1.3-2.9) H 04/04/17 03:55 [place] # 0.4 x10^3/uL (0.3-0.8) 04/04/17 03:55 Eos # 0.1 x10^3/uL (0.0-0.2) 04/04/17 03:55 Baso # 0.1 X10^3/uL (0.0-0.1) 04/04/17 03:55 Absolute Nucleated RBC 0.1 /100WBC 04/04/17 03:55 Plt Morphology Comment Normal (NORMAL) 04/04/17 03:55 RBC Morphology Abnormal (NORMAL) A 04/04/17 03:55 Hypochromasia 2+ A 04/04/17 03:55 Microcytosis Slight A 04/04/17 03:55 INR Target Range - 04/03/17 11:26 INR 0.98 (0.8-1.3) 04/03/17 11:26 PTT 29.1 SECONDS (22.9-36.5) 04/03/17 11:26 PTT Comment - 04/03/17 11:26 Sodium 142 mmol/L (136-145) 04/04/17 03:55 Corrected Sodium 145 mmol/L (136-145) 04/04/17 03:55 Potassium 3.5 mmol/L (3.5-5.1) 04/04/17 03:55 Chloride 107 mmol/L (98-107) 04/04/17 03:55 Carbon Dioxide 30.6 mmol/L (21-32) 04/04/17 03:55 BUN 7 mg/dL (7-18) 04/04/17 03:55 Creatinine 0.73 mg/dL (0.55-1.02) 04/04/17 03:55 Est GFR (MDRD) Af Amer > 60 (>60) 04/04/17 03:55 Est GFR (MDRD) Non-Af > 60 (>60) 04/04/17 03:55 Glucose 205 mg/dL (65-99) H 04/04/17 03:55 POC Glucose (mg/dL) 262 mg/dL (65-99) H 04/04/17 11:14 Calcium 8.4 mg/dL (8.5-10.1) L 04/04/17 03:55 Corrected Calcium 9.3 mg/dL (8.5-10.1) 04/04/17 03:55 Magnesium 2.1 mg/dL (1.7-2.9) 04/03/17 11:26 Total Bilirubin 0.20 mg/dL (0.2-1.0) 04/04/17 03:55 AST 11 Units/L (15-37) L 04/04/17 03:55 ALT 14 Units/L (12-78) 04/04/17 03:55 Alkaline Phosphatase 137 Units/L (46-116) H 04/04/17 03:55 Creatine Kinase 39 Units/L (26-192) 04/03/17 23:36 CK-MB (CK-2) 1.0 ng/mL (0-4.0) 04/03/17 23:36 CK/CKMB % Calc 2.6 % (<4) 04/03/17 23:36 Troponin I 0.10 ng/mL (0-1.5) 04/03/17 23:36 B-Natriuretic Peptide 57.6 pg/mL (0-79) 04/03/17 11:26 Total Protein 6.8 g/dL (6.4-8.2) 04/04/17 03:55 Albumin 2.9 g/dL (3.4-5.0) L 04/04/17 03:55 Globulin 3.9 g/dL (2.5-4.5) 04/04/17 03:55 Albumin/Globulin Ratio 0.7 Ratio (1.1-2.1) L 04/04/17 03:55 Triglycerides 154 mg/dL (0-150) H 04/04/17 03:55 Cholesterol 157 mg/dL (0-200) 04/04/17 03:55 LDL Cholesterol, Calc 88 mg/dL (0-100) 04/04/17 03:55 HDL Cholesterol 38 mg/dL (40-60) L 04/04/17 03:55 Cholesterol/HDL Ratio 4.1 (0.0-5.0) 04/04/17 03:55 - Plan (1) Chest pain Status: Acute Plan: SERIAL CE AND EKG'S ON ADMISSION. SUPPLEMENTAL O2, BP MONITORING. SSI, RESUME HOME MEDS. PAIN CONTROL (2) COPD (chronic obstructive pulmonary disease) Status: Chronic Plan: RESP THERAPY, SUPPLEMENTAL O2 (3) Diabetes mellitus Status: Chronic (4) GERD (gastroesophageal reflux disease) Status: Chronic (5) Hypertension Status: Chronic
[2017-04-04] MEDS ORDERED: ZOCOR TAB 20 MG PO SCH (21:00)
[2017-04-04] MEDS ORDERED: ZETIA TAB 10 MG PO SCH (21:00)
[2017-04-04] MEDS ORDERED: LEVEMIR SC SCH (21:00)
[2017-04-04] MEDS ORDERED: EZETIMIBE SIMVASTATIN PO SCH (21:00)
[2017-04-04] MEDS ORDERED: TRICOR TAB 160 MG PO SCH (21:00)
[2017-04-04] MEDS: SNACK - Diabetic Appropriate PO SCH (21:29)
[2017-04-04] MEDS: LEVSIN/MAALOX/LIDOC VISC PO SCH (21:40)
[2017-04-05] MEDS: VISTARIL PO PRN (06:07)
[2017-04-05] MEDS: LEVSIN/MAALOX/LIDOC VISC PO SCH (06:07)
[2017-04-05 06:36] LABS: BASOPHILS # (AUTO) 0.1 X10^3/uL (0.0-0.1); BASOPHILS % (AUTO) 0.7 % (0.2-1.0); EOSINOPHILS # (AUTO) 0.2 x10^3/uL (0.0-0.2); EOSINOPHILS % (AUTO) 2.4 % (0.9-2.9); HEMATOCRIT 31.4 % (36.0-47.0); HEMOGLOBIN 9.5 g/dL (12.0-16.0); LYMPHOCYTES # (AUTO) 3.3 X10^3/uL (1.3-2.9); LYMPHOCYTES % (AUTO) 42.9 % (21.0-51.0); MEAN CORPUSCULAR HEMOGLOBIN 21.4 pg (27.0-34.0); MEAN CORPUSCULAR HGB CONC 30.3 g/dL (33.0-35.0); MEAN CORPUSCULAR VOLUME 70.7 fL (80.0-100.0); MEAN PLATELET VOLUME 7.7 fL (7.4-11.0); MONOCYTES # (AUTO) 0.4 x10^3/uL (0.3-0.8); MONOCYTES % (AUTO) 5.6 % (0.0-13.0); NEUTROPHILS # (AUTO) 3.7 x10^3/uL (2.2-4.8); NEUTROPHILS % (AUTO) 48.4 % (42.0-75.0); PLATELET COUNT 354 X10^3/uL (150.0-450.0); RED BLOOD COUNT 4.44 X10^6/uL (3.5-5.4); RED CELL DISTRIBUTION WIDTH 17.7 % (11.6-16.5); WHITE BLOOD COUNT 7.6 X10^3/uL (3.6-10.0)
[2017-04-05 06:39] LABS: ALANINE AMINOTRANSFERASE 15 Units/L (12-78); ALBUMIN 2.9 g/dL (3.4-5.0); ALKALINE PHOSPHATASE 134 Units/L (46-116); ASPARTATE AMINO TRANSFERASE 13 Units/L (15-37); BLOOD UREA NITROGEN 9 mg/dL (7-18); CALCIUM 8.6 mg/dL (8.5-10.1); CARBON DIOXIDE 31.3 mmol/L (21-32); CHLORIDE 106 mmol/L (98-107); COR CA(FOR HYPOALB) 9.5 mg/dL (8.5-10.1); COR NA(FOR HYPERGLY) 144 mmol/L (136-145); SODIUM 143 mmol/L (136-145); TOTAL PROTEIN 7.1 g/dL (6.4-8.2); eGFR BLACK RACES > 60 (>60); eGFR NON BLACK RACES > 60 (>60)
[2017-04-05 08:38] LABS: ANISOCYTOSIS 1+; HYPOCHROMASIA 2+; MICROCYTOSIS 1+; PLATELET MORPHOLOGY COMMENT NORMAL (NORMAL)
[2017-04-05] MEDS: LOVENOX INJ 40 MG SYR SC SCH ×2 (08:38→08:45)
[2017-04-05] MEDS: ZANTAC PO SCH (08:39)
[2017-04-05] MEDS: ZOFRAN TAB 4 MG PO PRN (08:39)
[2017-04-05] MEDS ORDERED: PATIENT'S HOME MEDICATION (Dexlansoprazole [Dexilant] 60 MG) PO SCH (09:00)
[2017-04-05] MEDS ORDERED: LASIX PO SCH (09:00)
[2017-04-05] MEDS: NORCO 7.5/325 MG TAB PO PRN (09:33)
[2017-04-05] MEDS ORDERED: PROTONIX INJ 40 MG VIAL IVP ONE (09:40)
[2017-04-05] MEDS ORDERED: REGLAN INJ 10 MG VIAL IVP ONE (09:41)
[2017-04-05 10:12] VITALS: BP 139/62
== END 2017-04-05 12:17 | disposition home or self-care (01) ==
LOC: ER 11:13 → OBS 13:41
PROVIDERS: ADMIT Internal Medicine; ATTEND Internal Medicine
DX: R07.89 Other chest pain (principal); J44.9 Chronic obstructive pulmonary disease, unspecified; E11.9 Type 2 diabetes mellitus without complications; K21.9 Gastro-esophageal reflux disease without esophagitis; I10 Essential (primary) hypertension; Z86.73 Personal history of transient ischemic attack (TIA), and cerebral infarction without residual deficits; M19.90 Unspecified osteoarthritis, unspecified site; F32.9 Major depressive disorder, single episode, unspecified
CPT/HCPCS: 36415; 71045; 80053; 80061; 82550; 82553; 83735; 83880; 84484; 85025; 85610; 85730; 93005; 93010; 94760; 96365; 96367; 97535; 99284; A4216; C9113; G8978; G8979; Q0177; S0181; 1956; G0378; J1650; J1815; J2765

== ENCOUNTER 2017-04-07 09:34 | Emergency (ER) | payer MEDICAID, OTHER ==
[2017-04-07 09:47] VITALS: BMI 34.3
--- NOTE | 2017-04-07 09:54 | DR.GENAD ---
HPI - PCP Primary Care Physician: PEPE CHAN, - HPI Comment HPI Comment: HISTORY BELOW. - Complaint/Symptoms Chief Complaint Doctors Comments: PATIENT HAVE AMS. COMPLAINING OF CHEST PAIN. FELL TODAY PER SON AND SHE FALL A LOT RECENTLY. WAS IN HOSPITAL, DISCHARGE HOME FRIDAY.GLUCOSE IS RUNNING HIGH AND PATIENT IS WEAK. CONFUSE SLIGHTLY IN ED. Chief Complaint:: EMS OUT TO PT WITH C/O BEING WEAK, ABD PAIN TIMES 2 DAYS, AND HYPERGLYCEMIA,,,,, BS 273, B/P 104/73, CM 77 BPM PT JUST D/C FROM [facility] ON FRIDAY ,,, Self Treatment fo Chief Complaint: PT IS DROWSY AND SHE IS CONFUSED SOME AND SHE C/O RIGHT HIP AND BACK PAIN PT DENIES ANY TRAUMA. - Nurses notes reviewed Nurses Notes Review: Yes - Source History Provided: Patient, EMS - Mode of Arrival Mode of Arrival: EMS - Timing Onset of Chief Complaint: 04/05/17 Came on: Suddenly - Duration Duration: Constant Duration: Days - Severity Severity: Moderate PMH - PMH Past Medical History: Yes Past Medical History: Arthritis, CHF, COPD, CVA, Diabetes, GERD Past Surgical History: Yes Surgical History: Cholecystectomy, Hysterectomy, Other - Family History History of Family Medical Conditions: Yes Family Medical History: Cancer, [place], Coronary Artery Disease, Sudden Cardiac , Hypertension - Social History Does patient currently use any type of tobacco product: No Have you used tobacco products in the last 12 months: No Type of Tobacco Use: None Does any household member use tobacco: No Alcohol Use: None Do you use any recreational Drugs:: No Lives With: Alone Lives Where: Home - infectious screening In the last 2 months have you had wt loss of >10#?: NO Have you had fever, night sweats or hemotysis?: No Have you traveled outside the country in the last 6 months?: No Isolation: Standard ROS - Review of Systems Constitutional: Weakness, Fatigue. negative: Chills, Fever Eyes: negative: Eye Pain, Discharge ENTM: negative: Ear Pain, Nose Discharge, Nose Congestion, Throat Pain Respiratoy: Productive Cough, Short of Breath, Wheezing. negative: Hemoptysis Cardiovascular: Chest Pain Gastrointestinal/Abdominal: Abdominal Pain. negative: Nausea, Vomiting Genitourinary: No Symptoms Reported. negative: Dysuria Neurological: Headache, Weakness, Dizziness Musculoskeletal: Back Pain, Muscle Pain Integumentary: Change in Color Hematologic/Lymphatic: No Symptoms Reported Endocrine: Increased Thirst. negative: Flushing All Other Systems: Reviewed and Negative PE - Vital Signs Vitals: Temperature 98.9 F Pulse Rate 79 Respiratory Rate 20 Blood Pressure [Right Arm] 139/62 Blood Pressure [Left Arm] 147/79 Blood Pressure 180/73 O2 Sat by Pulse Oximetry 96 - General Limitations: No Limitations General Appearance: Alert, Obese (AMS) - Head Head Exam: Normal Inspection - Eyes Eye exam: Normal Appearance - ENT ENT Exam: Normal External Ear Exam External Ear Exam: Normal External Inspection TM/Canal Exam: Bilateral Normal Nose Exam: Normal Nose Exam Mouth Exam: Normal Inspection Throat Exam: Normal Inspection - Neck Neck Exam: Trachea Midline - Chest Chest Inspection: Symmetric Chest Wall Rise - Respiratory Respiratory Exam: Normal Lung Sounds Bilat Respiratory Exam: Bilateral Rhonchi, Lower Rhonchi - Cardiovascular Cardiovascular Exam: Regular Rate, Normal Rhythm, Normal Heart Sounds - Abdominal Exam Abdominal Exam: Normal Bowel Sounds, Soft. negative: Tenderness - Extremities Extremities Exam: Tenderness (RESTLESS LEG SYNDROME, CURRENTLY WITH PAIN) - Back Back Exam: Paraspinal Tenderness - Neurologic Neurological Exam: Alert, Other (ORIENTED TO PERSON.) - Skin Skin Exam: Erythema MDM - Additional Information Additional Information Obtained From: Family - Differential Diagnosis Differential Diagnosis: AMS, THORACIC SPINE FRACTURE, RIB FRACTURE, GENERALIZE WEAKNESS Course - Treatment Treatment: TORADOL IV IN ED. - Consultation Consultation Comments: DR REDMOND WILL ADMIT PATIENT. - Education/Counseling Education/Counseling: Patient, Family, Education Educated On: Treatment, Diagnosis, Needs for Follow Up ROR - Labs Reviewed Laboratory Results Reviewed?: Yes Result Diagrams: 04/08/17 05:00 04/08/17 05:00 - XRAY XRAY Interpreted by: Radiologist XRAY Findings: REPORT DISCUSS WITH FAMILY. - Diagnosis Discharge Problem: Dehydration, Generalized weakness Mental status alteration Qualifiers: Altered mental status type: transient alteration of awareness Qualified Code(s) : R40.4 - Transient alteration of awareness Thoracic spine fracture Qualifiers: Encounter type: initial encounter Thoracic vertebra fracture level: T10 Fracture type: closed Fracture morphology: other fracture Qualified Code(s): S22.078A - Other fracture of T9-T10 vertebra, initial encounter for closed fracture Rib fracture Qualifiers: Encounter type: initial encounter Rib fracture type: single rib Fracture type: closed Laterality: left Qualified Code(s): S22.32XA - Fracture of one rib, left side, initial encounter for closed fracture - Discharge Plan Disposition: ADMITTED INPATIENT Condition: Stable - Follow ups/Referrals - Instructions
[2017-04-07 10:42] LABS: LACTIC ACID 1.3 mmol/L (0.4-2.0)
[2017-04-07 10:45] LABS: BLOOD UREA NITROGEN 6 mg/dL (7-18); CARBON DIOXIDE 31.7 mmol/L (21-32); CHLORIDE 103 mmol/L (98-107); COR NA(FOR HYPERGLY) 142 mmol/L (136-145); CREATININE 0.64 mg/dL (0.55-1.02); SODIUM 138 mmol/L (136-145); TROPONIN I 0.03 ng/mL (0-1.5); eGFR BLACK RACES > 60 (>60); eGFR NON BLACK RACES > 60 (>60)
[2017-04-07 10:49] LABS: ALANINE AMINOTRANSFERASE 15 Units/L (12-78); ALBUMIN 3.3 g/dL (3.4-5.0); ALKALINE PHOSPHATASE 154 Units/L (46-116); ASPARTATE AMINO TRANSFERASE 12 Units/L (15-37); CKMB % 2.1 % (<4); COR CA(FOR HYPOALB) 9.6 mg/dL (8.5-10.1); CREATINE KINASE 47 Units/L (26-192); CREATINE KINASE MB < 1.0 ng/mL (0-4.0); MAGNESIUM 2.1 mg/dL (1.7-2.9); TOTAL PROTEIN 7.5 g/dL (6.4-8.2)
--- NOTE | 2017-04-07 11:02 | CT ---
History : Altered mental status Study: CT head without contrast. Sagittal and coronal reformations were provided. Comparison: January 11, 2017 Findings: There is no interval change. The ventricles and sulci are mildly prominent without mass eff ect. There is [id number] diffuse periventricular white matter patchy low attenuation. There is no intracranial hemorrhage or mass or edema and there is no subdural collection of fluid. The calvari um is intact and the paranasal sinuses are grossly clear. Impression: No acute intracranial disease. Unchanged periventricular white-matter small-vessel disease. Reported By:
--- NOTE | 2017-04-07 11:07 | CT ---
History: Left-sided rib pain Study: CT chest without contrast. Sagittal and coronal reformations were provided. Findings: There is no pleural effusion or pneumothorax. There is no lung consolidation or atelectasis or mass. There is no obvious adenopathy. The visualized upper abdomen is unremarkable status post ch olecystectomy. There is an acute fracture of the left 12th rib posteriorly. There is mild compression and anterior w edging of the T10 vertebral body. The sternum is intact. Impression: 1. Posterior left 12th rib fracture 2. 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
[2017-04-07] MEDS ORDERED: TORADOL 30 MG VIAL IVP ONE (11:18)
[2017-04-07] MEDS ORDERED: TORADOL 30 MG VIAL ONE (11:20)
[2017-04-07 11:23] LABS: BASOPHILS # (AUTO) 0.1 X10^3/uL (0.0-0.1); BASOPHILS % (AUTO) 0.6 % (0.2-1.0); EOSINOPHILS # (AUTO) 0.1 x10^3/uL (0.0-0.2); EOSINOPHILS % (AUTO) 1.7 % (0.9-2.9); HEMATOCRIT 31.1 % (36.0-47.0); HEMOGLOBIN 9.5 g/dL (12.0-16.0); LYMPHOCYTES # (AUTO) 1.8 X10^3/uL (1.3-2.9); MEAN CORPUSCULAR HEMOGLOBIN 21.5 pg (27.0-34.0); MEAN CORPUSCULAR HGB CONC 30.6 g/dL (33.0-35.0); MEAN CORPUSCULAR VOLUME 70.1 fL (80.0-100.0); MONOCYTES # (AUTO) 0.4 x10^3/uL (0.3-0.8); MONOCYTES % (AUTO) 5.4 % (0.0-13.0); NEUTROPHILS # (AUTO) 5.5 x10^3/uL (2.2-4.8); NEUTROPHILS % (AUTO) 69.3 % (42.0-75.0); PLATELET COUNT 339 X10^3/uL (150.0-450.0); RED BLOOD COUNT 4.43 X10^6/uL (3.5-5.4); RED CELL DISTRIBUTION WIDTH 17.7 % (11.6-16.5)
[2017-04-07 11:40] LABS: BILIRUBIN,URINE NEGATIVE (NEGATIVE); BLOOD/HEMOGLOBIN,URINE NEGATIVE (NEGATIVE); GLUCOSE, URINE 4+ (NEGATIVE); KETONES,URINE NEGATIVE (NEGATIVE); LEUKOCYTE ESTERASE ,URINE 1+ (NEGATIVE); NITRITES,URINE NEGATIVE (NEGATIVE); PROTEIN,URINE NEGATIVE (NEGATIVE); UROBILINOGEN,URINE NORMAL (NORMAL)
[2017-04-07 11:47] LABS: HYPOCHROMASIA 1+; PLATELET MORPHOLOGY COMMENT NORMAL (NORMAL)
[2017-04-07 11:58] LABS: APPEARANCE,URINE CLEAR (CLEAR); BACTERIA,URINE NEGATIVE /HPF (NEGATIVE); COLOR,URINE YELLOW (YELLOW); RBC,URINE 0-3 /HPF (NEGATIVE); SQUAMOUS EPITHELIAL CELL,UR FEW /HPF (NEGATIVE)
[2017-04-07] MEDS: HumuLIN R SC PRN ×2 (16:06→21:34)
[2017-04-07 16:30] LABS: CKMB % 2.5 % (<4); CREATINE KINASE 40 Units/L (26-192); CREATINE KINASE MB < 1.0 ng/mL (0-4.0); TROPONIN I 0.03 ng/mL (0-1.5)
[2017-04-07] MEDS: NORCO 7.5/325 MG TAB PO PRN ×2 (18:17→22:15)
--- NOTE | 2017-04-07 18:24 | DR.H&P ---
H&P - History & Physical for Day of: H&P Date: 04/07/17 - Chief Complaint Chief Complaint: FALL, ELEVATED BLOOD SUGAR, WEAKNESS - Allergies Allergies/Adverse Reactions: Allergies Allergy/AdvReac Type Severity Reaction Status Date / Time ciprofloxacin Allergy Verified 01/11/17 11:29 codeine Allergy Verified 01/11/17 11:29 levofloxacin Allergy Verified 01/11/17 11:29 morphine Allergy Verified 01/11/17 11:29 niacin Allergy Verified 01/11/17 11:29 promethazine Allergy Verified 01/11/17 11:29 topiramate Allergy Verified 01/11/17 11:29 - History of Present Illness History of Present Illness: 72 WF ER ADMISSION AFTER PRESENTING WITH CO FALL. PT CO RECENTLY D/C HOME FROM HOSPITAL. PT CO GENERALIZED WEAKNESS, DIZZINESS, ELEVATED BLOOD SUGAR AND SOB ON EXERTION. PT HAD CT HEAD IN ED. PLAN TO ADMIT PT FOR EVALUATION OF WEAKNESS AND INJURIES FROM ACUTE FALL. PT HAD PMH OF CAD, CHF, DM, COPD, OA, INES, GERD - Past Medical History Past Medical History: Arthritis, CHF, COPD, Coronary Artery Disease, CVA, Diabetes, GERD, Hypertension - Past Surgical History Surgical History: Cholecystectomy, Hysterectomy, Other - Family History Family Medical History: Cancer, [place], Coronary Artery Disease, Sudden Cardiac , Hypertension - Social History Does patient currently use any type of tobacco product: No Have you used tobacco products in the last 12 months: No Type of Tobacco Use: None Does any household member use tobacco: No Alcohol Use: None Drug Use: None - Review of Systems Constitutional: Weakness Eyes: No Symptoms Reported ENT: No Symptoms Reported Respiratory: Cough, Shortness of Breath, SOB with Excertion Cardiovascular: Light Headedness Gastrointestinal: Nausea Musculoskeletal: Shoulder Pain, Back Pain, Leg Pain Skin: Bruising Neurological: Weakness - Physical Exam Vital Signs: Temperature 98.0 F Pulse Rate [Left Brachial] 80 Pulse Rate 79 Respiratory Rate 20 Blood Pressure [Right Arm] 145/67 Blood Pressure [Left Arm] 163/70 Blood Pressure 180/73 O2 Sat by Pulse Oximetry 95 Oriented: Normal Eyes: Normal Ear: Normal Nose: Normal Throat: Dry Respiratory: Wheezes Throughout Cardiovascular: Edema : Normal Auscultation: Bowel Sounds: Normal Tenderness: Epigastric Skin: Decreased [place], Bruising Musculoskeletal: Right, Left, Shoulder, Knee, Back:Thoracic, Back:Lumbar, Motor Deficit, Instability, Crepitance Psychiatric: Anxiety Affect: Anxious Speech Pattern: Clear, Appropriate - Assessment/Plan (1) Weakness Status: Acute Plan: WEAKNESS WITH FALL AND HEAD INJURY,. HEAD INJURY PRECAUTIONS, ADMISSION LABS. BLOOD SUGAR AND BP MONITORING. EKG, RESUME HOME MEDS. RESP THERAPY, CONSULT CASE MANAGEMENT FOR REHAB PLACEMENT, PHYSICAL THERAPY EVALUATION (2) Contusion of head Status: Acute (3) Fall at home Status: Acute (4) Anxiety Status: Chronic (5) Arthritis Status: Chronic (6) COPD (chronic obstructive pulmonary disease) Status: Chronic (7) Diabetes mellitus Status: Chronic (8) GERD (gastroesophageal reflux disease) Status: Chronic (9) Hypertension Status: Chronic
[2017-04-07] MEDS: MAALOX or MYLANTA PO PRN (22:15)
[2017-04-07 22:51] LABS: CKMB % 2.6 % (<4); CREATINE KINASE 39 Units/L (26-192); CREATINE KINASE MB < 1.0 ng/mL (0-4.0); TROPONIN I 0.02 ng/mL (0-1.5)
[2017-04-08] MEDS: HumuLIN R SC PRN ×4 (05:17→20:55)
[2017-04-08] MEDS: NORCO 7.5/325 MG TAB PO PRN ×2 (05:18→15:32)
[2017-04-08 05:27] LABS: BASOPHILS # (AUTO) 0.1 X10^3/uL (0.0-0.1); BASOPHILS % (AUTO) 0.9 % (0.2-1.0); EOSINOPHILS # (AUTO) 0.2 x10^3/uL (0.0-0.2); EOSINOPHILS % (AUTO) 3.1 % (0.9-2.9); HEMATOCRIT 29.8 % (36.0-47.0); HEMOGLOBIN 9.2 g/dL (12.0-16.0); LYMPHOCYTES # (AUTO) 2.6 X10^3/uL (1.3-2.9); LYMPHOCYTES % (AUTO) 38.7 % (21.0-51.0); MEAN CORPUSCULAR HEMOGLOBIN 21.7 pg (27.0-34.0); MEAN CORPUSCULAR HGB CONC 30.8 g/dL (33.0-35.0); MEAN CORPUSCULAR VOLUME 70.4 fL (80.0-100.0); MEAN PLATELET VOLUME 7.7 fL (7.4-11.0); MONOCYTES # (AUTO) 0.4 x10^3/uL (0.3-0.8); MONOCYTES % (AUTO) 6.4 % (0.0-13.0); NEUTROPHILS # (AUTO) 3.4 x10^3/uL (2.2-4.8); NEUTROPHILS % (AUTO) 50.9 % (42.0-75.0); PLATELET COUNT 337 X10^3/uL (150.0-450.0); RED BLOOD COUNT 4.24 X10^6/uL (3.5-5.4); RED CELL DISTRIBUTION WIDTH 18.2 % (11.6-16.5); WHITE BLOOD COUNT 6.7 X10^3/uL (3.6-10.0)
[2017-04-08 05:37] LABS: ALANINE AMINOTRANSFERASE 13 Units/L (12-78); ALBUMIN 2.9 g/dL (3.4-5.0); ALKALINE PHOSPHATASE 122 Units/L (46-116); ASPARTATE AMINO TRANSFERASE 14 Units/L (15-37); BLOOD UREA NITROGEN 12 mg/dL (7-18); CALCIUM 8.6 mg/dL (8.5-10.1); CARBON DIOXIDE 30.6 mmol/L (21-32); CHLORIDE 105 mmol/L (98-107); COR CA(FOR HYPOALB) 9.5 mg/dL (8.5-10.1); COR NA(FOR HYPERGLY) 143 mmol/L (136-145); CREATININE 0.86 mg/dL (0.55-1.02); SODIUM 140 mmol/L (136-145); TOTAL PROTEIN 6.8 g/dL (6.4-8.2); eGFR BLACK RACES > 60 (>60); eGFR NON BLACK RACES > 60 (>60)
[2017-04-08 05:43] LABS: PLATELET MORPHOLOGY COMMENT NORMAL (NORMAL)
[2017-04-08 05:44] LABS: HYPOCHROMASIA 2+
[2017-04-08] MEDS ORDERED: NORCO 7.5/325 MG TAB PO PRN (09:15)
[2017-04-08] MEDS ORDERED: ATIVAN TAB 1 MG PO PRN (09:15)
[2017-04-08] MEDS: MAALOX or MYLANTA PO PRN (09:19)
[2017-04-08] MEDS: LEVSIN/MAALOX/LIDOC VISC PO SCH ×2 (14:05→21:00)
[2017-04-08] MEDS ORDERED: MILK OF MAGNESIA PO SCH ×2 (15:00→21:00)
[2017-04-08] MEDS ORDERED: COLACE CAP 100 MG PO SCH ×2 (15:00→21:00)
[2017-04-08] MEDS ORDERED: ZOCOR TAB 20 MG PO SCH (21:00)
[2017-04-08] MEDS ORDERED: LOTRISONE CREAM 15 G TOP SCH (21:00)
[2017-04-08] MEDS ORDERED: EZETIMIBE SIMVASTATIN PO SCH (21:00)
[2017-04-08] MEDS ORDERED: LEVEMIR SC SCH (21:00)
[2017-04-08] MEDS ORDERED: TRICOR TAB 160 MG PO SCH (21:00)
[2017-04-08] MEDS ORDERED: ZETIA TAB 10 MG PO SCH (21:00)
[2017-04-08] MEDS ORDERED: HALDOL INJ IM PRN (22:18)
[2017-04-09 00:08] VITALS: BP 138/69
[2017-04-09] MEDS: NORCO 7.5/325 MG TAB PO PRN (00:54)
[2017-04-09] MEDS ORDERED: CANAGLIFLOZIN PO SCH (09:00)
[2017-04-09] MEDS ORDERED: PATIENT'S HOME MEDICATION (Dexlansoprazole [Dexilant] 60 MG) PO SCH (09:00)
[2017-04-09] MEDS ORDERED: LASIX PO SCH (09:00)
== END 2017-04-09 02:55 | disposition left against medical advice (07) ==
LOC: ER 09:36 → MED/SURG 13:52
PROVIDERS: ADMIT Internal Medicine; ATTEND Internal Medicine
DX: R40.4 Transient alteration of awareness (principal); S22.32XA Fracture of one rib, left side, initial encounter for closed fracture; M48.54XA Collapsed vertebra, not elsewhere classified, thoracic region, initial encounter for fracture; R53.1 Weakness; R07.89 Other chest pain; W18.39XA Other fall on same level, initial encounter; Y92.098 Other place in other non-institutional residence as the place of occurrence of the external cause; E11.65 Type 2 diabetes mellitus with hyperglycemia; R06.02 Shortness of breath; J44.9 Chronic obstructive pulmonary disease, unspecified; F41.8 Other specified anxiety disorders; K21.9 Gastro-esophageal reflux disease without esophagitis; I10 Essential (primary) hypertension; M25.551 Pain in right hip; M54.89 Other dorsalgia; E86.0 Dehydration; S00.83XA Contusion of other part of head, initial encounter; R26.89 Other abnormalities of gait and mobility; I25.10 Atherosclerotic heart disease of native coronary artery without angina pectoris
CPT/HCPCS: 36415; 70450; 71250; 80053; 81001; 82009; 82550; 82553; 83605; 83735; 84484; 85025; 85610; 85730; 86140; 87040; 93005; 93010; 94640; 94760; 96365; 96374; 97535; 99284; A4222; 1956; G0378; J1630; J1815; J1885

== ENCOUNTER 2017-05-19 02:03 | Observation (INO) | payer MEDICAID, OTHER ==
[2017-05-19 02:28] LABS: BASOPHILS % (AUTO) 0.5 % (0.2-1.0); EOSINOPHILS # (AUTO) 0.1 x10^3/uL (0.0-0.2); EOSINOPHILS % (AUTO) 1.6 % (0.9-2.9); HEMATOCRIT 30.5 % (36.0-47.0); HEMOGLOBIN 9.2 g/dL (12.0-16.0); LYMPHOCYTES # (AUTO) 2.7 X10^3/uL (1.3-2.9); LYMPHOCYTES % (AUTO) 35.9 % (21.0-51.0); MEAN CORPUSCULAR HEMOGLOBIN 21.2 pg (27.0-34.0); MEAN CORPUSCULAR HGB CONC 30.1 g/dL (33.0-35.0); MEAN CORPUSCULAR VOLUME 70.3 fL (80.0-100.0); MEAN PLATELET VOLUME 7.8 fL (7.4-11.0); MONOCYTES # (AUTO) 0.5 x10^3/uL (0.3-0.8); MONOCYTES % (AUTO) 6.2 % (0.0-13.0); NEUTROPHILS # (AUTO) 4.2 x10^3/uL (2.2-4.8); NEUTROPHILS % (AUTO) 55.8 % (42.0-75.0); PLATELET COUNT 350 X10^3/uL (150.0-450.0); RED BLOOD COUNT 4.33 X10^6/uL (3.5-5.4); WHITE BLOOD COUNT 7.6 X10^3/uL (3.6-10.0)
[2017-05-19] MEDS ORDERED: NITRO-BID OINT 2% Multi-Dose tube TD ONE (02:32)
[2017-05-19] MEDS ORDERED: NITRO-BID OINT 2% Multi-Dose tube ONE (02:36)
[2017-05-19 02:39] LABS: HYPOCHROMASIA 2+; PLATELET MORPHOLOGY COMMENT NORMAL (NORMAL)
[2017-05-19 02:40] LABS: ANISOCYTOSIS SLIGHT
[2017-05-19 02:42] LABS: BLOOD UREA NITROGEN 9 mg/dL (7-18); CALCIUM 8.1 mg/dL (8.5-10.1); CARBON DIOXIDE 29.4 mmol/L (21-32); CHLORIDE 102 mmol/L (98-107); COR NA(FOR HYPERGLY) 146 mmol/L (136-145); CREATININE 1.07 mg/dL (0.55-1.02); SODIUM 138 mmol/L (136-145); TROPONIN I < 0.02 ng/mL (0-1.5); eGFR BLACK RACES > 60 (>60); eGFR NON BLACK RACES 53 (>60)
[2017-05-19 02:46] LABS: ALANINE AMINOTRANSFERASE 18 Units/L (12-78); ALBUMIN 3.2 g/dL (3.4-5.0); ALKALINE PHOSPHATASE 167 Units/L (46-116); ASPARTATE AMINO TRANSFERASE 13 Units/L (15-37); CKMB % 3.2 % (<4); COR CA(FOR HYPOALB) 8.7 mg/dL (8.5-10.1); CREATINE KINASE 31 Units/L (26-192); CREATINE KINASE MB < 1.0 ng/mL (0-4.0); MAGNESIUM 2.5 mg/dL (1.7-2.9); TOTAL PROTEIN 7.7 g/dL (6.4-8.2)
[2017-05-19 02:48] LABS: B-TYPE NATRIURETIC PEPTIDE 27.5 pg/mL (0-79)
--- NOTE | 2017-05-19 02:53 | RAD ---
Chest, one view Indication: Shortness of breath Comparison: 04/03/2017 Findings: Heart size is normal. No focal consolidation, significant effusion or pneumothorax is ident ified. No acute osseous abnormality is identified. Impression: No acute cardiopulmonary abnormality. Reported By:
[2017-05-19] MEDS ORDERED: HumuLIN R SUBCUT ONE (03:05)
--- NOTE | 2017-05-19 03:18 | DR.SOBA ---
HPI - Time Seen Time seen: 02:05 (seen on arrival) - Primary Care Physician Primary Care Physician: GALINA CHAN - HPI Comment HPI Comment: Pt believes she has pneumonia with 2 day hx increasingly prod cough and fevers at home. Lost her neb machine. Arrives with high BP, pt takes diovan on a PRN basis by her report. - Complaints Chief Complaint:: C/C/C, CHILLS,FEVER, WEAKNESS SINCE FRIDAY. PRODUCTIVE COUGH + SPUTUM PRODUCTION. HEADACHE - Reviewed Nurses Notes Reviewed: Yes - Source History Provided: Patient, EMS - Mode of Arrival Mode of Arrival: EMS - Timing Onset of Chief Complaint: 05/16/17 - Duration Onset: a.m. Duration: Days (2 day hx increasing cough, SOB) - Context Onset:: At Rest History of:: COPD, CHF - If Cough Cough: Productive (green sputum), Green PMH - PMH Past Medical History: Yes Past Medical History: Arthritis, CHF, COPD, CVA, Diabetes, GERD Past Surgical History: Yes Surgical History: Cholecystectomy, Hysterectomy, Other - Family History History of Family Medical Conditions: Yes Family Medical History: Cancer, [place], Coronary Artery Disease, Sudden Cardiac , Hypertension - Social History Does patient currently use any type of tobacco product: No Have you used tobacco products in the last 12 months: No Type of Tobacco Use: None Does any household member use tobacco: No Alcohol Use: None Do you use any recreational Drugs:: No Lives With: Family Lives Where: Home - infectious screening Have you traveled outside the country in the last 6 months?: No Isolation: Standard ROS - Review of Systems Constitutional: Chills, Fever, Weakness, Fatigue Eyes: No Symptoms Reported ENTM: No Symptoms Reported Respiratoy: Productive Cough, Short of Breath, Wheezing. negative: Stridor Cardiovascular: No Symptoms Reported. negative: Chest Pain Gastrointestinal/Abdominal: No Symptoms Reported Genitourinary: No Symptoms Reported Neurological: No Symptoms Reported Musculoskeletal: No Symptoms Reported Integumentary: No Symptoms Reported Hematologic/Lymphatic: No Symptoms Reported Endocrine: No Symptoms Reported Psychiatric: Anxiety All Other Systems: Reviewed and Negative PE - Vital Signs Vitals: Temperature 98.2 F Pulse Rate [Apical] 68 Pulse Rate 71 Respiratory Rate 20 Blood Pressure [Right Arm] 165/72 Blood Pressure [Left Arm] 138/69 Blood Pressure 210/89 O2 Sat by Pulse Oximetry 97 - General Limitations: No Limitations General Appearance: Alert, In No Apparent Distress, Anxious - Head Head Exam: Normal Inspection - Eyes Eye exam: Normal Appearance - ENT ENT Exam: Normal Exam, Normal Oropharynx - Neck Neck Exam: Normal Inspection, Full ROM, Trachea Midline. negative: Tenderness, Meningismus, Lymphadenopathy - Chest Chest Inspection: Symmetric Chest Wall Rise - Respiratory Respiratory Exam: negative: Respiratory Distress Respiratory Exam: Bilateral Decreased Breath Sounds - Cardiovascular Cardiovascular Exam: Regular Rate, Normal Rhythm, Normal Heart Sounds - Abdominal Exam Abdominal Exam: Normal Inspection, Normal Bowel Sounds, Soft - Extremities Extremities Exam: Normal Capillary Refill. negative: Edema - Neurologic Neurological Exam: Alert, Oriented X3 - Psychiatric Psychiatric Exam: Normal Affect, Normal Mood - Skin Skin Exam: Warm, Dry, Intact ROR - Labs Reviewed Laboratory Results Reviewed?: Yes (reviewed with pt) Result Diagrams: 05/19/17 02:10 05/19/17 02:10 Laboratory: WBC 7.6 X10^3/uL (3.6-10.0) 05/19/17 02:10 RBC 4.33 X10^6/uL (3.5-5.4) 05/19/17 02:10 Hgb 9.2 g/dL (12.0-16.0) L 05/19/17 02:10 Hct 30.5 % (36.0-47.0) L 05/19/17 02:10 MCV 70.3 fL (80.0-100.0) L 05/19/17 02:10 MCH 21.2 pg (27.0-34.0) L 05/19/17 02:10 MCHC 30.1 g/dL (33.0-35.0) L 05/19/17 02:10 RDW 18.0 % (11.6-16.5) H 05/19/17 02:10 Plt Count 350 X10^3/uL (150.0-450.0) 05/19/17 02:10 Plt Count Comment Adequate (ADEQUATE) 05/19/17 02:10 MPV 7.8 fL (7.4-11.0) 05/19/17 02:10 Neut % (Auto) 55.8 % (42.0-75.0) 05/19/17 02:10 Lymph % (Auto) 35.9 % (21.0-51.0) 05/19/17 02:10 [place] % (Auto) 6.2 % (0.0-13.0) 05/19/17 02:10 Eos % (Auto) 1.6 % (0.9-2.9) 05/19/17 02:10 Baso % (Auto) 0.5 % (0.2-1.0) 05/19/17 02:10 Neut # (Auto) 4.2 x10^3/uL (2.2-4.8) 05/19/17 02:10 Lymph # (Auto) 2.7 X10^3/uL (1.3-2.9) 05/19/17 02:10 [place] # (Auto) 0.5 x10^3/uL (0.3-0.8) 05/19/17 02:10 Eos # (Auto) 0.1 x10^3/uL (0.0-0.2) 05/19/17 02:10 Baso # (Auto) 0.0 X10^3/uL (0.0-0.1) 05/19/17 02:10 Absolute Nucleated RBC 0.1 /100WBC 05/19/17 02:10 Plt Morphology Comment Normal (NORMAL) 05/19/17 02:10 RBC Morphology Abnormal (NORMAL) A 05/19/17 02:10 Hypochromasia 2+ A 05/19/17 02:10 Anisocytosis Slight A 05/19/17 02:10 INR Target Range - 05/19/17 02:10 INR 0.99 (0.8-1.3) 05/19/17 02:10 APTT 28.0 SECONDS (22.9-36.5) 05/19/17 02:10 PTT Comment - 05/19/17 02:10 D-Dimer 726 ng/mL (0-400) H* 05/19/17 02:10 Sodium 138 mmol/L (136-145) 05/19/17 02:10 Corrected Sodium 146 mmol/L (136-145) H 05/19/17 02:10 Potassium 4.0 mmol/L (3.5-5.1) 05/19/17 02:10 Chloride 102 mmol/L (98-107) 05/19/17 02:10 Carbon Dioxide 29.4 mmol/L (21-32) 05/19/17 02:10 BUN 9 mg/dL (7-18) 05/19/17 02:10 Creatinine 1.07 mg/dL (0.55-1.02) H 05/19/17 02:10 Est GFR (MDRD) Af Amer > 60 (>60) 05/19/17 02:10 Est GFR (MDRD) Non-Af 53 (>60) L 05/19/17 02:10 Glucose 420 mg/dL (65-99) H 05/19/17 02:10 POC Glucose (mg/dL) 235 mg/dL (65-99) H 05/19/17 05:40 Calcium 8.1 mg/dL (8.5-10.1) L 05/19/17 02:10 Corrected Calcium 8.7 mg/dL (8.5-10.1) 05/19/17 02:10 Magnesium 2.5 mg/dL (1.7-2.9) 05/19/17 02:10 Total Bilirubin 0.20 mg/dL (0.2-1.0) 05/19/17 02:10 AST 13 Units/L (15-37) L 05/19/17 02:10 ALT 18 Units/L (12-78) 05/19/17 02:10 Alkaline Phosphatase 167 Units/L (46-116) H 05/19/17 02:10 Creatine Kinase 31 Units/L (26-192) 05/19/17 02:10 CK-MB (CK-2) < 1.0 ng/mL (0-4.0) 05/19/17 02:10 CK/CKMB % Calc 3.2 % (<4) 05/19/17 02:10 Troponin I < 0.02 ng/mL (0-1.5) 05/19/17 02:10 B-Natriuretic Peptide 27.5 pg/mL (0-79) 05/19/17 02:10 Total Protein 7.7 g/dL (6.4-8.2) 05/19/17 02:10 Albumin 3.2 g/dL (3.4-5.0) L 05/19/17 02:10 Globulin 4.5 g/dL (2.5-4.5) 05/19/17 02:10 Albumin/Globulin Ratio 0.7 Ratio (1.1-2.1) L 05/19/17 02:10 - Other Results Comments: Ddimer sig elevated, glucose 420 - XRAY XRAY Interpreted by: Radiologist XRAY Findings: CXR no acute, CTA chest with tree-in-bud opacities suggests pneumonia - EKG Rate: 74 [place]: Normal Rhythm: NSR Block: None Hypertrophy: LAE ST: Normal - Diagnosis Discharge Problem: Uncontrolled diabetes mellitus Pneumonia Qualifiers: Pneumonia type: due to unspecified organism Laterality: right Lung location: middle lobe of lung Qualified Code(s): J18.1 - Lobar pneumonia, unspecified organism - Discharge Plan Disposition: ADMITTED INPATIENT Condition: Stable - Follow ups/Referrals - Instructions Additional Notes - Additional Notes Additional Notes: Reviewed w/u with pt including CTA suspicious for CAP. Pt states she cannot see to take her meds right, doesn't know how her glucose got so high, states she hasn't eaten anything much yesterday. Spoke with hugo Stack , he agrees to admit for IV abx, will ask case mgmt to look into placement for this pt.
[2017-05-19] MEDS ORDERED: HumuLIN R ONE (03:24)
[2017-05-19] MEDS ORDERED: NS 100 ML IV 100 ML IV ONE (03:41)
--- NOTE | 2017-05-19 04:29 | CT ---
CTA chest Indication: Shortness of breath, left-sided rib pain, elevated D-dimer Technique: Helical CT images of the chest were obtained with IV contrast. Reformatted images in the c oronal and sagittal planes and 3D MIP images were also generated for review. Comparison: 04/07/2017 Findings: Contrast bolus timing is adequate for detection of PTE. No pulmonary thromboembolus is iden tified. There is no pulmonary arterial dilatation or evidence of right heart strain. The heart is nor mal in size without significant pericardial effusion. The thoracic aorta is mildly calcified without aneurysm. The central airways are patent. There is no lymphadenopathy. There tree-in-bud opacities within the right middle lobe. The remainder of the lungs are clear. No si gnificant pleural effusion or pneumothorax is identified. Limited arterial phase images of the upper abdomen demonstrate no acute abnormality. Review of bone w indows demonstrate a stable, likely chronic anterior compression fracture of the T10 vertebral body w ith approximately 20% height loss. Previously described fracture of the posterior left 12th rib is no t well appreciated. No acute or aggressive osseous abnormality is identified. Impression: No PTE identified. Tree-in-bud opacities within the right middle lobe, suggestive for developing infectious or inflammat ory pneumonitis. Reported By:
[2017-05-19] MEDS ORDERED: ROCEPHIN 1 GM IV PREMIX 1 GM/50 ML IV.SOLN. IV ONE ×2 (05:36→05:37)
[2017-05-19] MEDS ORDERED: HumaLOG SC PRN (05:39)
[2017-05-19] MEDS: NS 1000 ML 1,000 ML IV SCH ×2 (05:43→21:38)
[2017-05-19] MEDS: DUONEB 0.5 MG/3 MG NEB SCH ×4 (05:55→16:50)
[2017-05-19] MEDS: ZITHROMAX INJ 500 MG VIAL 500 MG in NS 250 ML IV 250 ML IV SCH ×2 (07:31→08:43)
[2017-05-19] MEDS ORDERED: TYLENOL 325 MG TAB PO PRN (12:30)
[2017-05-19] MEDS ORDERED: REGLAN TAB 5 MG PO PRN (13:12)
[2017-05-19] MEDS ORDERED: CANAGLIFLOZIN PO SCH (13:15)
[2017-05-19] MEDS ORDERED: PATIENT'S HOME MEDICATION (Dexlansoprazole [Dexilant] 1 CAP) PO SCH (13:15)
[2017-05-19] MEDS ORDERED: EZETIMIBE PO SCH (13:15)
[2017-05-19] MEDS ORDERED: SIMVASTATIN PO SCH (13:15)
[2017-05-19] MEDS: LEVSIN/MAALOX/LIDOC VISC PO SCH ×5 (13:56→22:14)
[2017-05-19] MEDS ORDERED: TORADOL 30 MG VIAL ONE (14:03)
[2017-05-19] MEDS: NORCO 7.5/325 MG TAB PO PRN ×2 (14:04→20:19)
[2017-05-19] MEDS: TORADOL 30 MG VIAL IVP PRN ×2 (14:04→14:08)
[2017-05-19] MEDS: FORTAZ or TAZICEF INJ 1 GM in NS 100 ML IV + SPIKE MINIBAG* 100 ML IV SCH ×2 (14:19→21:29)
[2017-05-19] MEDS: DIOVAN TAB 80 MG PO SCH ×2 (15:30→21:13)
[2017-05-19] MEDS: ROBITUSSIN DM PO SCH ×3 (17:34→22:06)
--- NOTE | 2017-05-19 18:16 | DR.H&P ---
H&P - History & Physical for Day of: H&P Date: 05/19/17 - Chief Complaint Chief Complaint: SOB, WEAKNESS - Allergies Allergies/Adverse Reactions: Allergies Allergy/AdvReac Type Severity Reaction Status Date / Time ciprofloxacin Allergy Verified 05/19/17 02:41 codeine Allergy Verified 05/19/17 02:41 levofloxacin Allergy Verified 05/19/17 02:41 morphine Allergy Verified 05/19/17 02:41 niacin Allergy Verified 05/19/17 02:41 promethazine Allergy Verified 05/19/17 02:41 topiramate Allergy Verified 05/19/17 02:41 - History of Present Illness History of Present Illness: 72 WF ER ADMISSION WITH INCREASED SOB, CCC. PT HAS CTA REVEALED PNEUMONIA. PT ADMITTED FOR TREATMENT AND EVALUATION OF RESP ILLNESS AND SOB. PT HAS PMH OF COPD, CAD, CHF, CVA, GERD, OA. HTN - Past Medical History Past Medical History: Arthritis, CHF, COPD, Coronary Artery Disease, CVA, Diabetes, GERD, Hypertension - Past Surgical History Surgical History: Cholecystectomy, Hysterectomy, Other - Family History Family Medical History: Cancer, [place], Coronary Artery Disease, Sudden Cardiac , Hypertension - Social History Does patient currently use any type of tobacco product: No Have you used tobacco products in the last 12 months: No Type of Tobacco Use: None Does any household member use tobacco: No Alcohol Use: None - Medications Home Medications: Canagliflozin [Invokana] 1 tab PO DAILY 05/19/17 [History Confirmed 05/19/17] Dexlansoprazole [Dexilant] 1 cap PO DAILY 05/19/17 [History Confirmed 05/19/17] Ezetimibe/Simvastatin [Vytorin 10-20 mg Tablet] 1 tab PO DAILY 05/19/17 [ History Confirmed 05/19/17] Fenofibrate [TRICOR 160 MG *] 1 tab PO HS 05/19/17 [History Confirmed 05/19/17] Furosemide 1 tab PO PRN PRN 05/19/17 [History Confirmed 05/19/17] Gi Cocktail [LEVSIN/Maalox/Lidoc Visc (GI COCKTAIL) *] 30 ml PO PRN PRN [History Confirmed 05/19/17] Hydrocodone-Acet 7.5 mg/325 mg [NORCO 7.5 MG/325 MG *] 1 tab PO TID PRN [History Confirmed 05/19/17] Insulin Detemir (Levemir) [LEVEMIR INSULIN *] 44 unit SQ HS 05/19/17 [History Confirmed 05/19/17] Insulin Lispro [Humalog Kem Kwikpen] 15 units SQ TID PRN 05/19/17 [History Confirmed 05/19/17] Lorazepam [ATIVAN 1 MG TAB *] 1 tab PO BID PRN 05/19/17 [History Confirmed 05/19] Metoclopramide HCl 1 tab PO QID PRN 05/19/17 [History Confirmed 05/19/17] Omeprazole 2 cap PO DAILY 05/19/17 [History Confirmed 05/19/17] Valsartan 1 tab PO BID 05/19/17 [History Confirmed 05/19/17] - Review of Systems Constitutional: Weakness Eyes: No Symptoms Reported ENT: No Symptoms Reported Respiratory: Cough, Shortness of Breath, SOB with Excertion, Sputum, Wheezing Cardiovascular: Edema, Light Headedness Gastrointestinal: Nausea Genitourinary: No Symptoms Reported Musculoskeletal: Back Pain, Leg Pain Skin: No Symptoms Reported Neurological: Weakness - Physical Exam Vital Signs: Temperature 98.6 F Pulse Rate [Apical] 71 Pulse Rate 80 Respiratory Rate 16 Blood Pressure [Right Arm] 170/22 Blood Pressure [Left Arm] 138/69 Blood Pressure 210/89 O2 Sat by Pulse Oximetry 94 Oriented: Normal Eyes: Normal Ear: Normal Nose: Normal Throat: Normal Respiratory: Wheezes Throughout, RLL Diminished, LLL Diminished Cardiovascular: Normal, Edema : Normal Auscultation: Bowel Sounds: Normal Palpation: Normal Tenderness: Normal Skin: Normal Musculoskeletal: Right, Left, Shoulder, Knee, Back:Thoracic, Back:Lumbar, Motor Deficit, Sensory Deficit, Instability, Crepitance Psychiatric: Anxiety, Depression Affect: Anxious Speech Pattern: Clear - Assessment/Plan (1) Pneumonia Qualifiers: Pneumonia type: due to unspecified organism Laterality: right Lung location: middle lobe of lung Qualified Code(s): J18.1 - Lobar pneumonia, unspecified organism Status: Acute Plan: ADMIT ICU, CARDIAC MONITORING. RESP THERAPY, SUPPLEMENTAL O2, IV ATBX, PULMONARY TOILETING. RESUME HOME MEDS. BP MONITORING (2) Uncontrolled diabetes mellitus Status: Acute (3) Fall at home Status: Acute (4) COPD (chronic obstructive pulmonary disease) Status: Chronic (5) Diabetes mellitus Status: Chronic (6) GERD (gastroesophageal reflux disease) Status: Chronic (7) Hypertension Status: Chronic
[2017-05-19] MEDS ORDERED: SNACK - Diabetic Appropriate PO SCH (20:00)
[2017-05-19] MEDS ORDERED: ZOSYN VIAL 3.375 GM IV ONE (20:08)
[2017-05-19] MEDS: ZOCOR TAB 20 MG PO SCH ×2 (20:16→22:08)
[2017-05-19] MEDS: ATIVAN TAB 1 MG PO PRN (20:17)
[2017-05-19] MEDS: TRICOR TAB 160 MG PO SCH ×2 (20:17→22:07)
[2017-05-19] MEDS: ZETIA TAB 10 MG PO SCH ×2 (20:18→22:07)
[2017-05-19] MEDS ORDERED: LEVEMIR SC SCH (21:00)
[2017-05-19] MEDS ORDERED: ZOSYN VIAL 3.375 GM 3.375 GM in NS 100 ML IV + SPIKE MINIBAG* 100 ML IV SCH (22:00)
[2017-05-20] MEDS: DUONEB 0.5 MG/3 MG NEB SCH ×2 (00:39→05:07)
[2017-05-20] MEDS: ATIVAN TAB 1 MG PO PRN (01:31)
[2017-05-20] MEDS: NORCO 7.5/325 MG TAB PO PRN (01:32)
[2017-05-20] MEDS ORDERED: NS 100 ML IV + SPIKE MINIBAG* 0 ML IV ONE (05:32)
[2017-05-20] MEDS: FORTAZ or TAZICEF INJ 1 GM in NS 100 ML IV + SPIKE MINIBAG* 100 ML IV SCH (05:36)
[2017-05-20 05:48] VITALS: BP 132/97
[2017-05-20 06:19] LABS: BASOPHILS % (AUTO) 0.5 % (0.2-1.0); EOSINOPHILS # (AUTO) 0.1 x10^3/uL (0.0-0.2); EOSINOPHILS % (AUTO) 2.4 % (0.9-2.9); HEMATOCRIT 27.8 % (36.0-47.0); HEMOGLOBIN 8.6 g/dL (12.0-16.0); LYMPHOCYTES # (AUTO) 2.5 X10^3/uL (1.3-2.9); LYMPHOCYTES % (AUTO) 40.5 % (21.0-51.0); MEAN CORPUSCULAR HEMOGLOBIN 21.6 pg (27.0-34.0); MEAN CORPUSCULAR HGB CONC 30.9 g/dL (33.0-35.0); MEAN CORPUSCULAR VOLUME 69.7 fL (80.0-100.0); MONOCYTES # (AUTO) 0.4 x10^3/uL (0.3-0.8); MONOCYTES % (AUTO) 6.3 % (0.0-13.0); NEUTROPHILS # (AUTO) 3.1 x10^3/uL (2.2-4.8); NEUTROPHILS % (AUTO) 50.3 % (42.0-75.0); PLATELET COUNT 311 X10^3/uL (150.0-450.0); RED BLOOD COUNT 3.98 X10^6/uL (3.5-5.4); RED CELL DISTRIBUTION WIDTH 17.9 % (11.6-16.5); WHITE BLOOD COUNT 6.2 X10^3/uL (3.6-10.0)
[2017-05-20 06:29] LABS: ALANINE AMINOTRANSFERASE 13 Units/L (12-78); ALBUMIN 2.7 g/dL (3.4-5.0); ALKALINE PHOSPHATASE 125 Units/L (46-116); ASPARTATE AMINO TRANSFERASE 12 Units/L (15-37); BLOOD UREA NITROGEN 9 mg/dL (7-18); CALCIUM 7.7 mg/dL (8.5-10.1); CARBON DIOXIDE 27.9 mmol/L (21-32); CHLORIDE 109 mmol/L (98-107); COR CA(FOR HYPOALB) 8.7 mg/dL (8.5-10.1); COR NA(FOR HYPERGLY) 144 mmol/L (136-145); SODIUM 143 mmol/L (136-145); TOTAL PROTEIN 6.6 g/dL (6.4-8.2); eGFR BLACK RACES > 60 (>60); eGFR NON BLACK RACES > 60 (>60)
[2017-05-20 06:57] LABS: HYPOCHROMASIA 2+; MICROCYTOSIS 1+; PLATELET MORPHOLOGY COMMENT NORMAL (NORMAL)
--- NOTE | 2017-05-20 07:27 | RAD ---
Exam: Chest, frontal view History: Hypertension. Congestive heart failure. Comparison: Previous chest radiograph from 05/19/2017 Findings: Borderline cardiomegaly is seen. The mid and lower lung vega are partially obscured by overlying so ft tissue structures. Nonetheless the lungs are most likely clear. No obvious effusion on either side . IMPRESSION: Borderline cardiomegaly. Lower lung vega partially obscured by overlying soft tissue structures Reported By:
== END 2017-05-20 07:00 | disposition left against medical advice (07) ==
LOC: ER 02:03 → ICU 05:52
PROVIDERS: ADMIT Internal Medicine; ATTEND Internal Medicine
DX: J18.1 Lobar pneumonia, unspecified organism (principal); E11.65 Type 2 diabetes mellitus with hyperglycemia; K21.9 Gastro-esophageal reflux disease without esophagitis; R51 Headache; R06.02 Shortness of breath; R53.1 Weakness; I25.10 Atherosclerotic heart disease of native coronary artery without angina pectoris; I10 Essential (primary) hypertension; W18.39XA Other fall on same level, initial encounter; J44.9 Chronic obstructive pulmonary disease, unspecified; R94.4 Abnormal results of kidney function studies; R79.1 Abnormal coagulation profile
CPT/HCPCS: 36415; 71045; 71275; 80053; 82550; 82553; 83735; 83880; 84484; 85025; 85378; 85610; 85730; 87040; 87070; 87205; 93005; 93010; 94640; 96365; 96372; 96374; 99284; A4216; A4222; 1956; G0378; J0456; J0696; J0713; J1815; J1885; J2543; J7620

== ENCOUNTER 2017-05-29 11:51 | Emergency (ER) | payer OTHER ==
[2017-05-29 12:08] VITALS: BP 169/77; BMI 30.9
--- NOTE | 2017-05-29 12:14 | DR.DIZZY ---
HPI - Time seen Time seen: 12:05 - Complaint Chief Complaint Doctor Comments: Patient presents to the ED with complaint blood pressure has been up, yesterday was weak, could not walk, right hand became numb. She denies a history of cardiac disease. She admits to COPD and uses home oxygen as needed. - Duration Duration: Since Onset Duration: Days - Location of Weakness Weakness Location: Generalized - Context Does pt take pot. toxic medication?: No History of: DM Stroke Symptoms: None - Severity Severity: Normal activity level - Modifying factors Worsens: Nothing - Associated signs and symptoms Associated Signs and Symptoms: Weak PMH - PMH Past Medical History: Arthritis, CHF, COPD, Coronary Artery Disease, CVA, Diabetes, GERD, Hypertension Past Surgical History: Yes Surgical History: Cholecystectomy, Hysterectomy, Other - Family History Family Medical History: Cancer, [place], Coronary Artery Disease, Sudden Cardiac , Hypertension - Social History Do you use any recreational Drugs:: No ROS - Review of Systems Eyes: No Symptoms Reported ENTM: No Symptoms Reported Respiratoy: No Symptoms Reported Cardiovascular: No Symptoms Reported Gastrointestinal/Abdominal: No Symptoms Reported Genitourinary: No Symptoms Reported Neurological: No Symptoms Reported Musculoskeletal: No Symptoms Reported Integumentary: No Symptoms Reported Hematologic/Lymphatic: No Symptoms Reported Endocrine: No Symptoms Reported Psychiatric: No Symptoms Reported All Other Systems: Reviewed and Negative PE - Vital Signs Vitals: Temperature 98.8 F Pulse Rate 76 Respiratory Rate 18 Blood Pressure [Right Arm] 197/77 Blood Pressure [Left Arm] 132/97 Blood Pressure 169/77 O2 Sat by Pulse Oximetry 95 - General General Appearance: Alert, In No Apparent Distress - Head Head Exam: Normal Inspection, Atraumatic - Eyes Eye exam: Normal Appearance, PERRL, EOMI Pupils: Regular, Round: Bilateral Sclera/Conjunctival: Normal Inspection: Bilateral Anterior Chamber: Normal Inspection: Bilateral Posterior Chamber: Deferred: Bilateral - ENT ENT Exam: Normal Exam, Normal Oropharynx - Neck Neck Exam: Normal Inspection, Full ROM - Chest Chest Inspection: Normal Inspection - Respiratory Respiratory Exam: Normal Lung Sounds Bilat Respiratory Exam: Bilateral Clear to Auscultation - Cardiovascular Cardiovascular Exam: Regular Rate, Normal Rhythm - Abdominal Exam Abdominal Exam: Normal Inspection, Normal Bowel Sounds Abdominal Tenderness: negative: RUQ, RLQ, LUQ, LLQ, Epigastrium, Suprapubic, Diffuse, Mild, Moderate, Severe, Other - Rectal Rectal Exam: Deferred - Extremeties Extremities Exam: Normal Inspection, Full ROM, Normal Capillary Refill. negative: Edema - Back Back Exam: Normal Inspection, Full ROM - Neurologic Neurological Exam: Alert, Oriented X3, CN II-XII Intact Speech: Fluid Speech Cranial Nerve Exam: EOM Function (II, III, IV, ): Normal, Facial Sensation (V) : Normal Cerebellar Function: Finger to Nose: Normal Motor Strength - LUE: 3/5 Motor Strength - RUE: 3/5 Motor Strength - LLE: 3/5 Motor Strength - RLE: 3/5 Sensory Exam Lower Extremity: Light Touch: Normal DTR: achilles tendon (L): 2+ - Psychiatric Psychiatric Exam: Normal Affect, Normal Mood - Skin Skin Exam: Warm, Dry, Intact Course - Reevaluation 1st: Improved ROR - Labs Reviewed Result Diagrams: 05/29/17 12:24 05/29/17 12:24 Laboratory: WBC 9.9 X10^3/uL (3.6-10.0) 05/29/17 12:24 RBC 4.56 X10^6/uL (3.5-5.4) 05/29/17 12:24 Hgb 9.8 g/dL (12.0-16.0) L 05/29/17 12:24 Hct 31.8 % (36.0-47.0) L 05/29/17 12:24 MCV 69.7 fL (80.0-100.0) L 05/29/17 12:24 MCH 21.5 pg (27.0-34.0) L 05/29/17 12:24 MCHC 30.8 g/dL (33.0-35.0) L 05/29/17 12:24 RDW 18.5 % (11.6-16.5) H 05/29/17 12:24 Plt Count 336 X10^3/uL (150.0-450.0) 05/29/17 12:24 Plt Count Comment Adequate (ADEQUATE) 05/29/17 12:24 MPV 7.8 fL (7.4-11.0) 05/29/17 12:24 Neut % (Auto) 60.2 % (42.0-75.0) 05/29/17 12:24 Lymph % (Auto) 31.3 % (21.0-51.0) 05/29/17 12:24 [place] % (Auto) 6.4 % (0.0-13.0) 05/29/17 12:24 Eos % (Auto) 1.0 % (0.9-2.9) 05/29/17 12:24 Baso % (Auto) 1.1 % (0.2-1.0) H 05/29/17 12:24 Neut # (Auto) 6.0 x10^3/uL (2.2-4.8) H 05/29/17 12:24 Lymph # (Auto) 3.1 X10^3/uL (1.3-2.9) H 05/29/17 12:24 [place] # (Auto) 0.6 x10^3/uL (0.3-0.8) 05/29/17 12:24 Eos # (Auto) 0.1 x10^3/uL (0.0-0.2) 05/29/17 12:24 Baso # (Auto) 0.1 X10^3/uL (0.0-0.1) 05/29/17 12:24 Absolute Nucleated RBC 0.1 /100WBC 05/29/17 12:24 Plt Morphology Comment Normal (NORMAL) 05/29/17 12:24 RBC Morphology Abnormal (NORMAL) A 05/29/17 12:24 Hypochromasia 1+ A 05/29/17 12:24 Anisocytosis 1+ A 05/29/17 12:24 Sodium 142 mmol/L (136-145) 05/29/17 12:24 Corrected Sodium 143 mmol/L (136-145) 05/29/17 12:24 Potassium 3.8 mmol/L (3.5-5.1) 05/29/17 12:24 Chloride 106 mmol/L (98-107) 05/29/17 12:24 Carbon Dioxide 29.6 mmol/L (21-32) 05/29/17 12:24 BUN 11 mg/dL (7-18) 05/29/17 12:24 Creatinine 0.70 mg/dL (0.55-1.02) 05/29/17 12:24 Est GFR (MDRD) Af Amer > 60 (>60) 05/29/17 12:24 Est GFR (MDRD) Non-Af > 60 (>60) 05/29/17 12:24 Glucose 138 mg/dL (65-99) H 05/29/17 12:24 Calcium 8.1 mg/dL (8.5-10.1) L 05/29/17 12:24 Corrected Calcium 8.8 mg/dL (8.5-10.1) 05/29/17 12:24 Total Bilirubin 0.30 mg/dL (0.2-1.0) 05/29/17 12:24 AST 18 Units/L (15-37) 05/29/17 12:24 ALT 22 Units/L (12-78) 05/29/17 12:24 Alkaline Phosphatase 116 Units/L (46-116) 05/29/17 12:24 Creatine Kinase 30 Units/L (26-192) 05/29/17 12:24 CK-MB (CK-2) < 1.0 ng/mL (0-4.0) 05/29/17 12:24 CK/CKMB % Calc 3.3 % (<4) 05/29/17 12:24 Troponin I < 0.02 ng/mL (0-1.5) 05/29/17 12:24 C-Reactive Protein 3.10 mg/L (0-3.0) H 05/29/17 12:24 Total Protein 7.0 g/dL (6.4-8.2) 05/29/17 12:24 Albumin 3.1 g/dL (3.4-5.0) L 05/29/17 12:24 Globulin 3.9 g/dL (2.5-4.5) 05/29/17 12:24 Albumin/Globulin Ratio 0.8 Ratio (1.1-2.1) L 05/29/17 12:24 - XRAY XRAY Interpreted by: Radiologist (cardiomegaly) - Diagnosis Discharge Problem: Weakness - Discharge Plan Condition: Stable - Follow ups/Referrals Follow ups/Referrals: NFD,None [Primary Care Provider] - 3 days - Instructions
[2017-05-29 12:35] LABS: BASOPHILS # (AUTO) 0.1 X10^3/uL (0.0-0.1); BASOPHILS % (AUTO) 1.1 % (0.2-1.0); EOSINOPHILS # (AUTO) 0.1 x10^3/uL (0.0-0.2); HEMATOCRIT 31.8 % (36.0-47.0); HEMOGLOBIN 9.8 g/dL (12.0-16.0); LYMPHOCYTES # (AUTO) 3.1 X10^3/uL (1.3-2.9); LYMPHOCYTES % (AUTO) 31.3 % (21.0-51.0); MEAN CORPUSCULAR HEMOGLOBIN 21.5 pg (27.0-34.0); MEAN CORPUSCULAR HGB CONC 30.8 g/dL (33.0-35.0); MEAN CORPUSCULAR VOLUME 69.7 fL (80.0-100.0); MEAN PLATELET VOLUME 7.8 fL (7.4-11.0); MONOCYTES # (AUTO) 0.6 x10^3/uL (0.3-0.8); MONOCYTES % (AUTO) 6.4 % (0.0-13.0); NEUTROPHILS % (AUTO) 60.2 % (42.0-75.0); PLATELET COUNT 336 X10^3/uL (150.0-450.0); RED BLOOD COUNT 4.56 X10^6/uL (3.5-5.4); RED CELL DISTRIBUTION WIDTH 18.5 % (11.6-16.5); WHITE BLOOD COUNT 9.9 X10^3/uL (3.6-10.0)
--- NOTE | 2017-05-29 12:42 | RAD ---
HISTORY: Cough, weakness Study: Single-view of the chest Comparison: May 20, 2017 Findings: The trachea is midline. The cardiac silhouette is enlarged. The lungs are clear without focal infil trate or effusion. The aorta is partially calcified and tortuous. IMPRESSION: 1. Cardiomegaly. Reported By:
[2017-05-29 12:44] LABS: ANISOCYTOSIS 1+; HYPOCHROMASIA 1+; PLATELET MORPHOLOGY COMMENT NORMAL (NORMAL)
[2017-05-29 12:48] LABS: ALANINE AMINOTRANSFERASE 22 Units/L (12-78); ALBUMIN 3.1 g/dL (3.4-5.0); ALKALINE PHOSPHATASE 116 Units/L (46-116); ASPARTATE AMINO TRANSFERASE 18 Units/L (15-37); BLOOD UREA NITROGEN 11 mg/dL (7-18); CALCIUM 8.1 mg/dL (8.5-10.1); CARBON DIOXIDE 29.6 mmol/L (21-32); CHLORIDE 106 mmol/L (98-107); COR CA(FOR HYPOALB) 8.8 mg/dL (8.5-10.1); COR NA(FOR HYPERGLY) 143 mmol/L (136-145); SODIUM 142 mmol/L (136-145); eGFR BLACK RACES > 60 (>60); eGFR NON BLACK RACES > 60 (>60)
[2017-05-29 12:58] LABS: CKMB % 3.3 % (<4); CREATINE KINASE 30 Units/L (26-192); CREATINE KINASE MB < 1.0 ng/mL (0-4.0); TROPONIN I < 0.02 ng/mL (0-1.5)
[2017-05-29] MEDS ORDERED: TYLENOL 325 MG TAB PO ONE ×2 (13:25→14:00)
[2017-05-29 13:31] LABS: BILIRUBIN,URINE NEGATIVE (NEGATIVE); BLOOD/HEMOGLOBIN,URINE 1+ (NEGATIVE); GLUCOSE, URINE 4+ (NEGATIVE); KETONES,URINE NEGATIVE (NEGATIVE); LEUKOCYTE ESTERASE ,URINE NEGATIVE (NEGATIVE); NITRITES,URINE NEGATIVE (NEGATIVE); PROTEIN,URINE NEGATIVE (NEGATIVE); UROBILINOGEN,URINE NORMAL (NORMAL)
[2017-05-29] MEDS ORDERED: TYLENOL ELIXIR 325 MG UDC PO ONE (13:34)
[2017-05-29 13:46] LABS: APPEARANCE,URINE CLEAR (CLEAR); BACTERIA,URINE TRACE /HPF (NEGATIVE); COLOR,URINE YELLOW (YELLOW); RBC,URINE 0-2 /HPF (NONE SEEN); RENAL EPITHELIAL CELLS,URINE RARE /HPF (NEGATIVE); SQUAMOUS EPITHELIAL CELL,UR FEW /HPF (NEGATIVE)
== END 2017-05-29 14:19 | disposition home or self-care (01) ==
LOC: ER 11:55
DX: R53.1 Weakness (principal); I51.7 Cardiomegaly
CPT/HCPCS: 36415; 71045; 80053; 81001; 82550; 82553; 84484; 85025; 86140; 93005; 93010; 99282; 99283

== ENCOUNTER 2017-07-17 09:14 | Day surgery (SDC) | payer OTHER, MEDICAID ==
[~2017-07-17 09:14] MED LIST changes: -DIPRIVAN VIAL 20 ML ONE; +NS 1000 ML 1,000 ML ONE
[2017-07-17] MEDS ORDERED: DIPRIVAN VIAL 20 ML ONE (10:07)
[2017-07-17 10:36] VITALS: BP 112/51
== END 2017-07-17 10:40 | disposition home or self-care (01) ==
LOC: SURG1 09:14
PROVIDERS: ATTEND Internal Medicine Gastroenterology
PROC: 0DB68ZX Excision of Stomach, Via Natural or Artificial Opening Endoscopic, Diagnostic (ICD-10-PCS; principal; 2017-07-17 09:45)
PROC: 0DJ08ZZ Inspection of Upper Intestinal Tract, Via Natural or Artificial Opening Endoscopic (ICD-10-PCS; principal; 2017-07-17 09:45)
DX: K25.9 Gastric ulcer, unspecified as acute or chronic, without hemorrhage or perforation (principal); R10.31 Right lower quadrant pain; K21.9 Gastro-esophageal reflux disease without esophagitis; K31.89 Other diseases of stomach and duodenum; K20.8 Other esophagitis; K29.60 Other gastritis without bleeding
CPT/HCPCS: 99100; A4217; J3490

== ENCOUNTER 2017-10-04 03:16 | Inpatient (IN) ==
[2017-10-04] MEDS ORDERED: ZOFRAN INJ 4 MG VIAL IVP PRN (03:39)
[2017-10-04] MEDS ORDERED: DEMEROL INJ ONE (04:44)
[2017-10-04] MEDS: NS 1000 ML 1,000 ML IV SCH (04:49)
[2017-10-04] MEDS: DEMEROL INJ IVP PRN ×3 (04:49→19:52)
[2017-10-04 05:44] LABS: BILIRUBIN,URINE NEGATIVE (NEGATIVE); BLOOD/HEMOGLOBIN,URINE 1+ (NEGATIVE); GLUCOSE, URINE 4+ (NEGATIVE); KETONES,URINE 1+ (NEGATIVE); LEUKOCYTE ESTERASE ,URINE 1+ (NEGATIVE); NITRITES,URINE NEGATIVE (NEGATIVE); PROTEIN,URINE 1+ (NEGATIVE); UROBILINOGEN,URINE NORMAL (NORMAL)
[2017-10-04 06:05] LABS: BASOPHILS % (AUTO) 0.3 % (0.2-1.0); EOSINOPHILS % (AUTO) 0.1 % (0.9-2.9); HEMATOCRIT 33.1 % (36.0-47.0); HEMOGLOBIN 10.4 g/dL (12.0-16.0); LYMPHOCYTES # (AUTO) 0.8 X10^3/uL (1.3-2.9); LYMPHOCYTES % (AUTO) 5.6 % (21.0-51.0); MEAN CORPUSCULAR HEMOGLOBIN 22.6 pg (27.0-34.0); MEAN CORPUSCULAR HGB CONC 31.4 g/dL (33.0-35.0); MEAN CORPUSCULAR VOLUME 72.1 fL (80.0-100.0); MONOCYTES # (AUTO) 0.6 x10^3/uL (0.3-0.8); MONOCYTES % (AUTO) 4.5 % (0.0-13.0); NEUTROPHILS # (AUTO) 12.3 x10^3/uL (2.2-4.8); NEUTROPHILS % (AUTO) 89.5 % (42.0-75.0); PLATELET COUNT 438 X10^3/uL (150.0-450.0); RED BLOOD COUNT 4.59 X10^6/uL (3.5-5.4); RED CELL DISTRIBUTION WIDTH 20.5 % (11.6-16.5); WHITE BLOOD COUNT 13.7 X10^3/uL (3.6-10.0)
[2017-10-04 06:12] LABS: APPEARANCE,URINE CLEAR (CLEAR); COLOR,URINE YELLOW (YELLOW)
[2017-10-04 06:13] LABS: AMORPHOUS SEDIMENT,UR 2+ /HPF (NEGATIVE); BACTERIA,URINE NEGATIVE /HPF (NEGATIVE); RBC,URINE 0-2 /HPF (NONE SEEN); SQUAMOUS EPITHELIAL CELL,UR RARE /HPF (NEGATIVE)
[2017-10-04 06:30] LABS: ALANINE AMINOTRANSFERASE 33 Units/L (12-78); ALBUMIN 3.8 g/dL (3.4-5.0); ALKALINE PHOSPHATASE 78 Units/L (46-116); ASPARTATE AMINO TRANSFERASE 31 Units/L (15-37); BLOOD UREA NITROGEN 27 mg/dL (7-18); CALCIUM 9.4 mg/dL (8.5-10.1); CARBON DIOXIDE 28.2 mmol/L (21-32); CHLORIDE 101 mmol/L (98-107); COR NA(FOR HYPERGLY) 142 mmol/L (136-145); CREATININE 1.19 mg/dL (0.55-1.02); SODIUM 139 mmol/L (136-145); TOTAL PROTEIN 7.8 g/dL (6.4-8.2); eGFR NON BLACK RACES 47 (>60)
[2017-10-04 06:36] LABS: ANISOCYTOSIS 1+; HYPOCHROMASIA 1+; MICROCYTOSIS SLIGHT; PLATELET MORPHOLOGY COMMENT NORMAL (NORMAL)
--- NOTE | 2017-10-04 08:25 | DR.H&P ---
H&P - History & Physical for Day of: H&P Date: 10/04/17 - Chief Complaint Chief Complaint: LEFT HIP PAIN FOLLOWING FALL - History of Present Illness History of Present Illness: IS A 72 YEAR OLD PATIENT OF . SHE IS A RESIDENT OF [facility]. SKILLED NURSING STAFF REPORS THAT PATIENT FELL TWICE YESTERDAY AND COMPLAINED OF HIP PAIN. AN OUTPATIENT HIP XRAY WAS OBTAINED OF THE LEFT HIP AND REVEALED: ACUTE LEFT FEMORAL NECK FRACTURE. SHE ALSO COMPLAINED OF LEFT KNEE PAIN AND LEFT WRIST PAIN, HOWEVER, XRAY REVEALED NO ACUTE ABNORMALITIES. PATIENT WAS ADMITTED TO THE HOSPITAL FOR FURTHER EVALUATION AND TREATMENT. ON ARRIVAL, VITALS WERE 98.4-101-20-95%-137/ 65. LABS WERE OBTAINED. ABNORMAL LAB VALUES INCLUDE THE FOLLOWING: WBC 13.7, HGB 10.4, HCT 33.1, BUN 27, CREATININE 1.19, GLUCOSE 226. WE CONSULTED AND STARTED PATIENT ON NORMAL SALINE AT 50ML/HR, DEMEROL 25MG IV Q4H PRN FOR PAIN CONTROL, AND ZOFRAN 4MG IV Q8H PRN FOR NAUSEA. WE WILL OBTAIN A CT OF THE PELVIS THIS MORNING. OTHERWISE, WE WILL FOLLOW UP WITH AM LABS AND CONTINUE TO MONITOR PATIENT. - Past Medical History Past Medical History: Arthritis, CHF, COPD, Coronary Artery Disease, CVA, Diabetes, GERD, Hypertension - Past Surgical History Surgical History: Cholecystectomy, Hysterectomy, Other - Family History Family Medical History: Cancer, [place], Coronary Artery Disease, Sudden Cardiac , Hypertension - Social History Does patient currently use any type of tobacco product: No Have you used tobacco products in the last 12 months: No Type of Tobacco Use: None Does any household member use tobacco: No Alcohol Use: None Drug Use: None - Medications Home Medications: ciprofloxacin Allergy (Verified 05/19/17 02:41) codeine Allergy (Verified 05/19/17 02:41) levofloxacin Allergy (Verified 05/19/17 02:41) morphine Allergy (Verified 05/19/17 02:41) niacin Allergy (Verified 05/19/17 02:41) promethazine Allergy (Verified 05/19/17 02:41) topiramate Allergy (Verified 05/19/17 02:41) CONTINUE taking the following medications albuterol sulfate [ProAir HFA] 2 puff INHALATION Q6H 10/04/17 [History] iron-folic acid-mv, min cmb#15 [Hemocyte-Plus] 1 cap PO DAILY 10/04/17 [History] olanzapine [Zyprexa] 2.5 mg PO BID 10/04/17 [History] ropinirole 0.5 mg PO BID PRN 10/04/17 [History] sertraline [Zoloft] 100 mg PO DAILY 10/04/17 [History] tramadol [Ultram] 50 mg PO Q8H PRN 10/04/17 [History] - Review of Systems Constitutional: Weakness Eyes: No Symptoms Reported ENT: No Symptoms Reported Respiratory: No Symptoms Reported Cardiovascular: No Symptoms Reported Gastrointestinal: No Symptoms Reported Genitourinary: No Symptoms Reported Musculoskeletal: See HPI (LEFT HIP PAIN, KNEE PAIN, WRIST PAIN ) Skin: No Symptoms Reported Neurological: Weakness, Incoordination - Physical Exam Vital Signs: Temperature 96.9 F Pulse Rate [Brachial] 96 Respiratory Rate 18 Blood Pressure [Right Arm] 137/65 Blood Pressure [Left Arm] 121/84 Blood Pressure 112/51 O2 Sat by Pulse Oximetry 91 Oriented: Normal Eyes: Normal Ear: Normal Nose: Normal Throat: Normal Respiratory: Clear Throughout Cardiovascular: Normal. negative: S3, S4, Murmur : Normal Auscultation: Bowel Sounds: Normal Palpation: Normal Tenderness: Normal Skin: Normal Musculoskeletal: Left, Wrist, Hip, Knee, Tender Psychiatric: Normal Mood Description: Calm Affect: Normal Speech Pattern: Clear - Assessment/Plan (1) Femoral neck fracture Qualifiers: Encounter type: initial encounter Fracture type: closed Laterality: left Qualified Code(s): S72.002A - Fracture of unspecified part of neck of left femur, initial encounter for closed fracture Status: Acute Plan: ADMIT, DEMEROL IV FOR PAIN CONTROL, ZOFRAN FOR NAUSEA, ORTHOPEDIC CONSULT , OBTAIN PELVIS CT, CONTINUE TO MONITOR - Allergies Allergies/Adverse Reactions: Allergies Allergy/AdvReac Type Severity Reaction Status Date / Time ciprofloxacin Allergy Verified 05/19/17 02:41 codeine Allergy Verified 05/19/17 02:41 levofloxacin Allergy Verified 05/19/17 02:41 morphine Allergy Verified 05/19/17 02:41 niacin Allergy Verified 05/19/17 02:41 promethazine Allergy Verified 05/19/17 02:41 topiramate Allergy Verified 05/19/17 02:41
[2017-10-04 11:19] VITALS: BMI 29.8
--- NOTE | 2017-10-04 11:38 | RAD ---
Examination: AP chest, one view History: Preop Comparison reference 05/29/2017 Findings: Continued normal heart size with essentially clear lungs and pleural spaces. There is sligh t elevation of the left hemidiaphragm now observed. No large pleural effusion or pneumothorax. Impression: No acute cardiac or pulmonary lesion demonstrated. Nonspecific elevation left hemidiaphra gm since prior study. Reported By:
[2017-10-05] MEDS: NS 1000 ML 1,000 ML IV SCH ×3 (02:00→23:45)
[2017-10-05] MEDS: DEMEROL INJ IVP PRN ×3 (05:00→20:05)
[2017-10-05 05:19] LABS: BASOPHILS # (AUTO) 0.1 X10^3/uL (0.0-0.1); BASOPHILS % (AUTO) 0.5 % (0.2-1.0); EOSINOPHILS % (AUTO) 0.1 % (0.9-2.9); HEMATOCRIT 31.7 % (36.0-47.0); HEMOGLOBIN 9.9 g/dL (12.0-16.0); LYMPHOCYTES # (AUTO) 1.5 X10^3/uL (1.3-2.9); LYMPHOCYTES % (AUTO) 10.7 % (21.0-51.0); MEAN CORPUSCULAR HEMOGLOBIN 22.5 pg (27.0-34.0); MEAN CORPUSCULAR HGB CONC 31.3 g/dL (33.0-35.0); MEAN CORPUSCULAR VOLUME 71.8 fL (80.0-100.0); MEAN PLATELET VOLUME 8.2 fL (7.4-11.0); MONOCYTES # (AUTO) 0.8 x10^3/uL (0.3-0.8); MONOCYTES % (AUTO) 5.5 % (0.0-13.0); NEUTROPHILS # (AUTO) 11.4 x10^3/uL (2.2-4.8); NEUTROPHILS % (AUTO) 83.2 % (42.0-75.0); PLATELET COUNT 392 X10^3/uL (150.0-450.0); RED BLOOD COUNT 4.42 X10^6/uL (3.5-5.4); RED CELL DISTRIBUTION WIDTH 20.2 % (11.6-16.5); WHITE BLOOD COUNT 13.7 X10^3/uL (3.6-10.0)
[2017-10-05 05:33] LABS: ALANINE AMINOTRANSFERASE 28 Units/L (12-78); ALKALINE PHOSPHATASE 71 Units/L (46-116); ASPARTATE AMINO TRANSFERASE 34 Units/L (15-37); BLOOD UREA NITROGEN 20 mg/dL (7-18); CALCIUM 8.9 mg/dL (8.5-10.1); CARBON DIOXIDE 25.5 mmol/L (21-32); CHLORIDE 107 mmol/L (98-107); COR CA(FOR HYPOALB) 9.7 mg/dL (8.5-10.1); CREATININE 0.96 mg/dL (0.55-1.02); SODIUM 142 mmol/L (136-145); eGFR NON BLACK RACES > 60 (>60)
[2017-10-05 05:42] LABS: ANISOCYTOSIS 1+; HYPOCHROMASIA 1+; PLATELET MORPHOLOGY COMMENT NORMAL (NORMAL)
--- NOTE | 2017-10-05 06:13 | CT ---
CT pelvis without contrast indication pelvic pain Technique: Noncontrast multiplanar images are reviewed Findings: There is diffuse degenerative spondylosis of the lumbar sacral spine with severe canal impi ngement at L4-5 as well as L5-S1. There is no acute appearing fracture of the bony pelvis. The left a nd right hip alignment remains grossly within normal limits. Atherosclerotic changes are present. The re is a partial transition on the left at L5 with partial sacralization The adjacent soft tissues are negative for fluid, adenopathy or mass. There is a Babb catheter withi n the urinary bladder. Impression: 1. Chronic degenerative changes of the lumbar sacral spine with high-grade canal stenosis that appears chronic. 2. Negative exam for acute appearing fracture. 3. Bilateral mild degenerative arthropathy of the hips. Reported By:
[2017-10-05] MEDS ORDERED: REQUIP PO PRN (12:17)
[2017-10-05] MEDS ORDERED: ULTRAM PO PRN (12:20)
[2017-10-05] MEDS ORDERED: PREVACID PO SCH (13:00)
--- NOTE | 2017-10-05 14:51 | PCM.PROG ---
Progress Note - Progress Note for Day of Date of Exam: 10/05/17 - Subjective Subjective: WAS ADMITTED FOR A LEFT FEMORAL NECK FRACTURE. TODAY, SHE IS LYING IN BED WITH EYES CLOSED ON MORNING ROUNDS. SHE AWAKENS TO VERBAL STIMULI. PATIENT IS NOTED TO BE DISORIENTED. SHE CONTINUES WITH COMPLAINTS OF LEFT HIP PAIN. ON EXAMINATION, HEART IS REGULAR IN RATE AND RHYTHM. BILATERAL LUNGS ARE CLEAR TO AUSCULTATION. ABDOMEN IS ROUND, SOFT, AND NON-TENDER WITH NORMAL BOWEL SOUNDS NOTED IN ALL QUADRANTS. LEFT LEG IS NOTED WITH SCATTERED BRUISING AND DECREASED RANGE OF MOTION. HER VITALS TODAY ARE 99.6-96-20-92%-146/ 77. LABS WERE OBTAINED. ABNORMAL LAB VALUES INCLUDE THE FOLLOWING: WBC 13.7, HGB 9.9, HCT 31.7, BUN 20, GLUCOSE 109, ALBUMIN 3.0. A PELVIS CT WAS OBTAINED YESTERDAY AND REVEALED: Chronic degenerative changes of the lumbar sacral spine with high-grade canal stenosis that appears chronic. Bilateral mild degenerative arthropathy of the hips. There is a displaced and angulated, Garden classification 2/3, left subcapital femoral neck fracture with adjacent soft tissue swelling/edema. PLANS TO TAKE PATIENT TO THE OR TOMORROW FOR SURGICAL REPAIR OF THE HIP. WE ARE IN AGREEMENT WITH PLAN OF CARE. PATINET IS MEDICALLY STABLE AND CLEAR FOR SURGERY. OTHERWISE, WE WILL FOLLOW UP WITH AM LABS AND CONTINUE TO MONITOR. - Past Medical Family Social History Past Med/Fam/Surg Hx: No changes since H&P Allergies: Allergies ciprofloxacin Allergy (Verified 05/19/17 02:41) codeine Allergy (Verified 05/19/17 02:41) levofloxacin Allergy (Verified 05/19/17 02:41) morphine Allergy (Verified 05/19/17 02:41) niacin Allergy (Verified 05/19/17 02:41) promethazine Allergy (Verified 05/19/17 02:41) topiramate Allergy (Verified 05/19/17 02:41) - Review of Systems ROS: No change since H&P - Vital Signs and I&O's Vital Signs: Temperature 99.6 F Pulse Rate [Brachial] 96 Respiratory Rate 20 Blood Pressure [Right Arm] 146/77 Blood Pressure [Left Arm] 167/69 Blood Pressure 112/51 O2 Sat by Pulse Oximetry 92 Intake and Output: Intake & Output 10/03/17 10/04/17 10/05/17 10/06/17 11:59 11:59 11:59 11:59 Intake Total 200 / 200 1474 / 1474 Output Total 800 / 800 1400 / 1400 Balance -600 / -600 74 / 74 - Physical Exam Oriented: Normal Eyes: Normal Ear: Normal Nose: Normal Throat: Normal Respiratory: Normal Cardiovascular: Normal. negative: S3, S4, Murmur : Normal Auscultation: Bowel Sounds: Normal Palpation: Normal Tenderness: Normal Skin: Normal Musculoskeletal: Left, Wrist, Hip, Knee, Tender Psychiatric: Normal Mood Description: Calm Affect: Normal Speech Pattern: Appropriate - Laboratory and Diagnostics Result Diagrams: 10/05/17 04:20 10/05/17 04:20 Labs: Laboratory WBC 13.7 X10^3/uL (3.6-10.0) H 10/05/17 04:20 RBC 4.42 X10^6/uL (3.5-5.4) 10/05/17 04:20 Hgb 9.9 g/dL (12.0-16.0) L 10/05/17 04:20 Hct 31.7 % (36.0-47.0) L 10/05/17 04:20 MCV 71.8 fL (80.0-100.0) L 10/05/17 04:20 MCH 22.5 pg (27.0-34.0) L 10/05/17 04:20 MCHC 31.3 g/dL (33.0-35.0) L 10/05/17 04:20 RDW 20.2 % (11.6-16.5) H 10/05/17 04:20 Plt Count 392 X10^3/uL (150.0-450.0) 10/05/17 04:20 Plt Count Comment Adequate (ADEQUATE) 10/05/17 04:20 MPV 8.2 fL (7.4-11.0) 10/05/17 04:20 Neut % (Auto) 83.2 % (42.0-75.0) H 10/05/17 04:20 Lymph % (Auto) 10.7 % (21.0-51.0) L 10/05/17 04:20 [place] % (Auto) 5.5 % (0.0-13.0) 10/05/17 04:20 Eos % (Auto) 0.1 % (0.9-2.9) L 10/05/17 04:20 Baso % (Auto) 0.5 % (0.2-1.0) 10/05/17 04:20 Neut # (Auto) 11.4 x10^3/uL (2.2-4.8) H 10/05/17 04:20 Lymph # (Auto) 1.5 X10^3/uL (1.3-2.9) 10/05/17 04:20 [place] # (Auto) 0.8 x10^3/uL (0.3-0.8) 10/05/17 04:20 Eos # (Auto) 0.0 x10^3/uL (0.0-0.2) 10/05/17 04:20 Baso # (Auto) 0.1 X10^3/uL (0.0-0.1) 10/05/17 04:20 Absolute Nucleated RBC 0.0 /100WBC 10/05/17 04:20 Plt Morphology Comment Normal (NORMAL) 10/05/17 04:20 RBC Morphology Abnormal (NORMAL) A 10/05/17 04:20 Hypochromasia 1+ A 10/05/17 04:20 Anisocytosis 1+ A 10/05/17 04:20 Microcytosis Slight A 10/04/17 05:10 Sodium 142 mmol/L (136-145) 10/05/17 04:20 Corrected Sodium TNP 10/05/17 04:20 Potassium 4.0 mmol/L (3.5-5.1) 10/05/17 04:20 Chloride 107 mmol/L (98-107) 10/05/17 04:20 Carbon Dioxide 25.5 mmol/L (21-32) 10/05/17 04:20 BUN 20 mg/dL (7-18) H 10/05/17 04:20 Creatinine 0.96 mg/dL (0.55-1.02) 10/05/17 04:20 Est GFR (MDRD) Af Amer > 60 (>60) 10/05/17 04:20 Est GFR (MDRD) Non-Af > 60 (>60) 10/05/17 04:20 Glucose 109 mg/dL (65-99) H 10/05/17 04:20 Calcium 8.9 mg/dL (8.5-10.1) 10/05/17 04:20 Corrected Calcium 9.7 mg/dL (8.5-10.1) 10/05/17 04:20 Total Bilirubin 0.60 mg/dL (0.2-1.0) 10/05/17 04:20 AST 34 Units/L (15-37) 10/05/17 04:20 ALT 28 Units/L (12-78) 10/05/17 04:20 Alkaline Phosphatase 71 Units/L (46-116) 10/05/17 04:20 B-Natriuretic Peptide 110 pg/mL (0-79) H 10/05/17 04:20 Total Protein 7.0 g/dL (6.4-8.2) 10/05/17 04:20 Albumin 3.0 g/dL (3.4-5.0) L 10/05/17 04:20 Globulin 4.0 g/dL (2.5-4.5) 10/05/17 04:20 Albumin/Globulin Ratio 0.8 Ratio (1.1-2.1) L 10/05/17 04:20 Specimen Type Catherized urine 10/04/17 04:31 Urine Color Yellow (YELLOW) 10/04/17 04:31 Urine Appearance Clear (CLEAR) 10/04/17 04:31 Urine pH 5.0 (5.0 - 8.0) 10/04/17 04:31 Ur Specific [place] 1.015 (1.000-1.030) 10/04/17 04:31 Urine Protein 1+ (NEGATIVE) 10/04/17 04:31 Urine Glucose (UA) 4+ (NEGATIVE) 10/04/17 04:31 Urine Ketones 1+ (NEGATIVE) 10/04/17 04:31 Urine Occult Blood 1+ (NEGATIVE) 10/04/17 04:31 Urine Nitrite Negative (NEGATIVE) 10/04/17 04:31 Urine Bilirubin Negative (NEGATIVE) 10/04/17 04:31 Urine Urobilinogen Normal (NORMAL) 10/04/17 04:31 Ur Leukocyte Esterase 1+ (NEGATIVE) 10/04/17 04:31 Urine RBC 0-2 /HPF (NONE SEEN) 10/04/17 04:31 Urine WBC None seen /HPF (NONE SEEN) 10/04/17 04:31 Ur Squamous Epith Cells Rare /HPF (NEGATIVE) 10/04/17 04:31 Amorphous Sediment 2+ /HPF (NEGATIVE) 10/04/17 04:31 Urine Bacteria Negative /HPF (NEGATIVE) 10/04/17 04:31 Ur Culture Indicated? No/not indicated 10/04/17 04:31 Blood Type O POSITIVE 10/04/17 09:55 Antibody Screen Negative 10/04/17 09:55 Crossmatch See Detail 10/04/17 09:55 - Plan (1) Femoral neck fracture Status: Acute Qualifiers: Encounter type: initial encounter Fracture type: closed Laterality: left Qualified Code(s): S72.002A - Fracture of unspecified part of neck of left femur, initial encounter for closed fracture Plan: ADMIT, DEMEROL IV FOR PAIN CONTROL, ZOFRAN FOR NAUSEA, ORTHOPEDIC CONSULT , OBTAIN PELVIS CT, CONTINUE TO MONITOR
[2017-10-05] MEDS ORDERED: ZOLOFT PO ONE (15:06)
[2017-10-05] MEDS: ATIVAN TAB 0.5 MG PO SCH (15:35)
[2017-10-05] MEDS: HEMOCYTE-PLUS PO SCH (15:36)
[2017-10-05] MEDS: ZOLOFT PO SCH (15:36)
[2017-10-05] MEDS: DIOVAN TAB 80 MG PO SCH (20:34)
[2017-10-05] MEDS: MILK OF MAGNESIA PO SCH (20:34)
[2017-10-05] MEDS: TRICOR TAB 160 MG PO SCH (20:35)
[2017-10-05] MEDS: COLACE CAP 100 MG PO SCH (20:35)
[2017-10-06] MEDS: DEMEROL INJ IVP PRN (04:10)
[2017-10-06 05:18] LABS: BASOPHILS # (AUTO) 0.1 X10^3/uL (0.0-0.1); BASOPHILS % (AUTO) 0.8 % (0.2-1.0); EOSINOPHILS # (AUTO) 0.2 x10^3/uL (0.0-0.2); EOSINOPHILS % (AUTO) 1.9 % (0.9-2.9); HEMATOCRIT 28.4 % (36.0-47.0); HEMOGLOBIN 9.1 g/dL (12.0-16.0); LYMPHOCYTES # (AUTO) 1.8 X10^3/uL (1.3-2.9); LYMPHOCYTES % (AUTO) 17.7 % (21.0-51.0); MEAN CORPUSCULAR HEMOGLOBIN 23.3 pg (27.0-34.0); MEAN CORPUSCULAR VOLUME 72.7 fL (80.0-100.0); MEAN PLATELET VOLUME 8.1 fL (7.4-11.0); MONOCYTES # (AUTO) 0.6 x10^3/uL (0.3-0.8); MONOCYTES % (AUTO) 6.3 % (0.0-13.0); NEUTROPHILS # (AUTO) 7.5 x10^3/uL (2.2-4.8); NEUTROPHILS % (AUTO) 73.3 % (42.0-75.0); PLATELET COUNT 324 X10^3/uL (150.0-450.0); RED BLOOD COUNT 3.91 X10^6/uL (3.5-5.4); RED CELL DISTRIBUTION WIDTH 21.1 % (11.6-16.5); WHITE BLOOD COUNT 10.2 X10^3/uL (3.6-10.0)
[2017-10-06 05:27] LABS: ALANINE AMINOTRANSFERASE 26 Units/L (12-78); ALBUMIN 2.5 g/dL (3.4-5.0); ALKALINE PHOSPHATASE 68 Units/L (46-116); ASPARTATE AMINO TRANSFERASE 21 Units/L (15-37); BLOOD UREA NITROGEN 19 mg/dL (7-18); CALCIUM 8.2 mg/dL (8.5-10.1); CARBON DIOXIDE 26.6 mmol/L (21-32); CHLORIDE 107 mmol/L (98-107); COR CA(FOR HYPOALB) 9.4 mg/dL (8.5-10.1); COR NA(FOR HYPERGLY) 142 mmol/L (136-145); CREATININE 0.81 mg/dL (0.55-1.02); SODIUM 141 mmol/L (136-145); TOTAL PROTEIN 6.3 g/dL (6.4-8.2); eGFR NON BLACK RACES > 60 (>60)
[2017-10-06 05:48] LABS: ANISOCYTOSIS 1+; HYPOCHROMASIA 1+; PLATELET MORPHOLOGY COMMENT NORMAL (NORMAL)
[2017-10-06] MEDS ORDERED: LR 1000 ML IV 1,000 ML IV ONE (08:26)
[2017-10-06] MEDS ORDERED: ANCEF 1 GRAM IV PREMIX* 1 G/50 ML BAG IV ONE (08:26)
--- NOTE | 2017-10-06 08:44 | DR.CONSULT ---
Consult - Consultation for Day of: Date: 10/06/17 - Chief Complaint Chief Complaint: lt hip fracture - Past Medical History Past Medical History: Arthritis, CHF, COPD, Coronary Artery Disease, CVA, Diabetes, GERD, Hypertension - Past Surgical History Surgical History: Cholecystectomy, Hysterectomy, Other - Family History Family Medical History: Cancer, [place], Coronary Artery Disease, Sudden Cardiac , Hypertension - Social History Does patient currently use any type of tobacco product: No Have you used tobacco products in the last 12 months: No Type of Tobacco Use: None Does any household member use tobacco: No Alcohol Use: None Drug Use: None - Medications Home Medications: ciprofloxacin Allergy (Verified 05/19/17 02:41) codeine Allergy (Verified 05/19/17 02:41) levofloxacin Allergy (Verified 05/19/17 02:41) morphine Allergy (Verified 05/19/17 02:41) niacin Allergy (Verified 05/19/17 02:41) promethazine Allergy (Verified 05/19/17 02:41) topiramate Allergy (Verified 05/19/17 02:41) CONTINUE taking the following medications albuterol sulfate [ProAir HFA] 2 puff INHALATION Q6H 10/04/17 [History] iron-folic acid-mv, min cmb#15 [Hemocyte-Plus] 1 cap PO DAILY 10/04/17 [History] olanzapine [Zyprexa] 2.5 mg PO BID 10/04/17 [History] ropinirole 0.5 mg PO BID PRN 10/04/17 [History] sertraline [Zoloft] 100 mg PO DAILY 10/04/17 [History] tramadol [Ultram] 50 mg PO Q8H PRN 10/04/17 [History] - Physical Exam Vital Signs: Temperature 98.7 F Pulse Rate [Left Brachial] 79 Pulse Rate [Brachial] 96 Respiratory Rate 20 Blood Pressure [Right Arm] 146/77 Blood Pressure [Left Arm] 156/69 Blood Pressure 112/51 O2 Sat by Pulse Oximetry 95 Musculoskeletal: Left, Hip, Swelling, Tender, Instability, Crepitance - Plan Plan: lt hip bipolar hemiarthroplasty - Allergies Allergies/Adverse Reactions: Allergies Allergy/AdvReac Type Severity Reaction Status Date / Time ciprofloxacin Allergy Verified 05/19/17 02:41 codeine Allergy Verified 05/19/17 02:41 levofloxacin Allergy Verified 05/19/17 02:41 morphine Allergy Verified 05/19/17 02:41 niacin Allergy Verified 05/19/17 02:41 promethazine Allergy Verified 05/19/17 02:41 topiramate Allergy Verified 05/19/17 02:41
[2017-10-06] MEDS ORDERED: FENTANYL INJ 250 mcg ONE (09:00)
[2017-10-06] MEDS ORDERED: DILAUDID INJ ONE (09:00)
[2017-10-06] MEDS ORDERED: PATIENT'S HOME MEDICATION (Dexlansoprazole [Dexilant] 60 MG) PO SCH (10:00)
[2017-10-06] MEDS ORDERED: PATIENT'S HOME MEDICATION (Albuterol Sulfate [Proair Hfa] 2 PUFF) IN SCH (10:00)
[2017-10-06] MEDS ORDERED: EZETIMIBE SIMVASTATIN PO SCH (10:00)
[2017-10-06] MEDS ORDERED: HumuLIN R SUBCUT PRN (10:04)
[2017-10-06] MEDS ORDERED: NS 1000 ML 1,000 ML ONE (10:35)
[2017-10-06] MEDS ORDERED: MORPHINE SULFATE PCA 30 MG IV PRN (11:23)
[2017-10-06] MEDS ORDERED: REGLAN INJ 10 MG VIAL IVP PRN (11:26)
[2017-10-06] MEDS ORDERED: DILAUDID INJ IVP PRN (11:26)
[2017-10-06] MEDS ORDERED: ZOFRAN INJ 4 MG VIAL IVP PRN (11:26)
[2017-10-06] MEDS ORDERED: BENADRYL INJ 50 MG VIAL IVP PRN (11:26)
[2017-10-06] MEDS ORDERED: PHENERGAN INJ 25 MG IVP PRN (11:26)
[2017-10-06 11:47] LABS: HEMOGLOBIN 9.9 g/dL (12.0-16.0)
[2017-10-06] MEDS: CANAGLIFLOZIN 100 MG PO SCH (12:00)
[2017-10-06] MEDS ORDERED: BUTT CREAM (COMPOUND) TOP PRN (12:03)
[2017-10-06] MEDS ORDERED: ZOLOFT PO ONE (12:47)
--- NOTE | 2017-10-06 12:50 | RAD ---
History: Status post left hip prosthesis Findings: AP pelvis and a cross-table lateral left hip, portable Findings: There is a new left hip prosthesis in good overall position. There is postoperative gas in the soft tissues laterally and there are surgical braden. Impression: Satisfactory appearance of the left hip prosthesis Reported By:
[2017-10-06] MEDS: MILK OF MAGNESIA PO SCH ×2 (12:56→20:52)
[2017-10-06] MEDS: DIOVAN TAB 80 MG PO SCH ×2 (12:57→20:50)
[2017-10-06] MEDS: ATIVAN TAB 0.5 MG PO SCH (12:57)
[2017-10-06] MEDS: HEMOCYTE-PLUS PO SCH (12:58)
[2017-10-06] MEDS: PERCOCET TAB 5/325 MG PO PRN (12:58)
[2017-10-06] MEDS: LASIX PO SCH (12:58)
[2017-10-06] MEDS: ZOLOFT PO SCH (12:59)
[2017-10-06] MEDS: PROVENTIL NEB TX 0.083% 2.5MG/ 3ML NEB SCH ×4 (13:05→20:37)
[2017-10-06] MEDS ORDERED: ROBINUL ONE (15:44)
[2017-10-06] MEDS ORDERED: VERSED ONE (15:44)
[2017-10-06] MEDS ORDERED: QUELICIN (OR ANECTINE) ONE (15:44)
[2017-10-06] MEDS ORDERED: ZOFRAN INJ 4 MG VIAL ONE (15:44)
[2017-10-06] MEDS ORDERED: DIPRIVAN VIAL ONE (15:44)
[2017-10-06] MEDS ORDERED: NEOSTIGMINE INJ ONE (15:44)
[2017-10-06] MEDS ORDERED: ULTANE GAS IN ONE (15:44)
[2017-10-06] MEDS: COLACE CAP 100 MG PO SCH (20:50)
[2017-10-06] MEDS: LOVENOX INJ 30 MG SYR SC SCH (20:55)
[2017-10-06] MEDS: VANCOMYCIN HCL 1 GM VIAL 1 G in D5W 250 ML IV 250 ML IV SCH (21:00)
[2017-10-06] MEDS: NS 1000 ML 1,000 ML IV SCH (22:53)
[2017-10-06] MEDS: SNACK - Diabetic Appropriate PO SCH (22:53)
[2017-10-06] MEDS: TRICOR TAB 160 MG PO SCH (22:55)
[2017-10-07] MEDS: NS 1000 ML 1,000 ML IV SCH ×3 (02:58→21:00)
[2017-10-07 05:16] LABS: BASOPHILS # (AUTO) 0.1 X10^3/uL (0.0-0.1); BASOPHILS % (AUTO) 0.6 % (0.2-1.0); EOSINOPHILS % (AUTO) 0.4 % (0.9-2.9); HEMATOCRIT 27.2 % (36.0-47.0); HEMOGLOBIN 8.6 g/dL (12.0-16.0); LYMPHOCYTES # (AUTO) 1.4 X10^3/uL (1.3-2.9); LYMPHOCYTES % (AUTO) 11.7 % (21.0-51.0); MEAN CORPUSCULAR HEMOGLOBIN 22.9 pg (27.0-34.0); MEAN CORPUSCULAR HGB CONC 31.5 g/dL (33.0-35.0); MEAN CORPUSCULAR VOLUME 72.8 fL (80.0-100.0); MEAN PLATELET VOLUME 8.2 fL (7.4-11.0); MONOCYTES # (AUTO) 0.9 x10^3/uL (0.3-0.8); MONOCYTES % (AUTO) 7.5 % (0.0-13.0); NEUTROPHILS # (AUTO) 9.3 x10^3/uL (2.2-4.8); NEUTROPHILS % (AUTO) 79.8 % (42.0-75.0); PLATELET COUNT 358 X10^3/uL (150.0-450.0); RED BLOOD COUNT 3.74 X10^6/uL (3.5-5.4); RED CELL DISTRIBUTION WIDTH 20.9 % (11.6-16.5); WHITE BLOOD COUNT 11.6 X10^3/uL (3.6-10.0)
[2017-10-07 05:28] LABS: ALANINE AMINOTRANSFERASE 27 Units/L (12-78); ALBUMIN 2.5 g/dL (3.4-5.0); ALKALINE PHOSPHATASE 78 Units/L (46-116); ASPARTATE AMINO TRANSFERASE 28 Units/L (15-37); BLOOD UREA NITROGEN 16 mg/dL (7-18); CALCIUM 8.1 mg/dL (8.5-10.1); CHLORIDE 108 mmol/L (98-107); COR CA(FOR HYPOALB) 9.3 mg/dL (8.5-10.1); COR NA(FOR HYPERGLY) 144 mmol/L (136-145); CREATININE 0.76 mg/dL (0.55-1.02); SODIUM 142 mmol/L (136-145); TOTAL PROTEIN 6.3 g/dL (6.4-8.2); eGFR NON BLACK RACES > 60 (>60)
[2017-10-07 05:52] LABS: ANISOCYTOSIS 1+; HYPOCHROMASIA 1+; PLATELET MORPHOLOGY COMMENT NORMAL (NORMAL)
[2017-10-07] MEDS ORDERED: ZOLOFT PO ONE (07:45)
[2017-10-07] MEDS: PROVENTIL NEB TX 0.083% 2.5MG/ 3ML NEB SCH ×4 (09:11→21:35)
[2017-10-07] MEDS: ATIVAN TAB 0.5 MG PO SCH (09:40)
[2017-10-07] MEDS: VANCOMYCIN HCL 1 GM VIAL 1 G in D5W 250 ML IV 250 ML IV SCH (09:40)
[2017-10-07] MEDS: CANAGLIFLOZIN 100 MG PO SCH (09:40)
[2017-10-07] MEDS: PROTONIX INJ 40 MG VIAL IVP SCH (09:41)
[2017-10-07] MEDS: LASIX PO SCH (09:41)
[2017-10-07] MEDS: ZOLOFT PO SCH (09:41)
[2017-10-07] MEDS: LOVENOX INJ 30 MG SYR SC SCH ×2 (09:42→21:02)
[2017-10-07] MEDS: MILK OF MAGNESIA PO SCH ×2 (09:42→21:03)
[2017-10-07] MEDS: HEMOCYTE-PLUS PO SCH (09:42)
[2017-10-07] MEDS: DIOVAN TAB 80 MG PO SCH ×2 (09:42→21:02)
[2017-10-07] MEDS: ZOCOR TAB 20 MG PO SCH (09:43)
[2017-10-07] MEDS: ZETIA TAB 10 MG PO SCH (09:43)
[2017-10-07] MEDS ORDERED: NS 100 ML IV 100 ML IV ONE (14:22)
[2017-10-07] MEDS: PERCOCET TAB 5/325 MG PO PRN (14:28)
[2017-10-07 20:43] LABS: HEMATOCRIT 25.5 % (36.0-47.0); HEMOGLOBIN 8.2 g/dL (12.0-16.0)
[2017-10-07] MEDS: SNACK - Diabetic Appropriate PO SCH (21:00)
[2017-10-07] MEDS: COLACE CAP 100 MG PO SCH (21:01)
[2017-10-07] MEDS: TRICOR TAB 160 MG PO SCH (21:03)
[2017-10-08 05:23] LABS: BASOPHILS # (AUTO) 0.1 X10^3/uL (0.0-0.1); BASOPHILS % (AUTO) 0.5 % (0.2-1.0); EOSINOPHILS # (AUTO) 0.2 x10^3/uL (0.0-0.2); EOSINOPHILS % (AUTO) 1.5 % (0.9-2.9); HEMOGLOBIN 8.7 g/dL (12.0-16.0); LYMPHOCYTES # (AUTO) 1.4 X10^3/uL (1.3-2.9); LYMPHOCYTES % (AUTO) 12.5 % (21.0-51.0); MEAN CORPUSCULAR HEMOGLOBIN 23.9 pg (27.0-34.0); MEAN CORPUSCULAR HGB CONC 32.1 g/dL (33.0-35.0); MEAN CORPUSCULAR VOLUME 74.5 fL (80.0-100.0); MEAN PLATELET VOLUME 8.1 fL (7.4-11.0); MONOCYTES # (AUTO) 0.8 x10^3/uL (0.3-0.8); MONOCYTES % (AUTO) 7.3 % (0.0-13.0); NEUTROPHILS # (AUTO) 8.9 x10^3/uL (2.2-4.8); NEUTROPHILS % (AUTO) 78.2 % (42.0-75.0); PLATELET COUNT 334 X10^3/uL (150.0-450.0); RED BLOOD COUNT 3.62 X10^6/uL (3.5-5.4); RED CELL DISTRIBUTION WIDTH 21.6 % (11.6-16.5); WHITE BLOOD COUNT 11.4 X10^3/uL (3.6-10.0)
[2017-10-08 05:33] LABS: ALANINE AMINOTRANSFERASE 25 Units/L (12-78); ALBUMIN 2.1 g/dL (3.4-5.0); ALKALINE PHOSPHATASE 78 Units/L (46-116); ASPARTATE AMINO TRANSFERASE 34 Units/L (15-37); BLOOD UREA NITROGEN 21 mg/dL (7-18); CALCIUM 8.1 mg/dL (8.5-10.1); CARBON DIOXIDE 25.1 mmol/L (21-32); CHLORIDE 112 mmol/L (98-107); COR CA(FOR HYPOALB) 9.6 mg/dL (8.5-10.1); CREATININE 0.81 mg/dL (0.55-1.02); SODIUM 146 mmol/L (136-145); TOTAL PROTEIN 5.9 g/dL (6.4-8.2); eGFR NON BLACK RACES > 60 (>60)
[2017-10-08 05:44] LABS: ANISOCYTOSIS 1+; HYPOCHROMASIA 1+; PLATELET MORPHOLOGY COMMENT NORMAL (NORMAL)
[2017-10-08] MEDS: NS 1000 ML 1,000 ML IV SCH ×2 (05:44→20:42)
--- NOTE | 2017-10-08 07:56 | PCM.PROG ---
Progress Note - Progress Note for Day of Date of Exam: 10/06/17 - Subjective Subjective: WAS ADMITTED FOR A LEFT FEMORAL NECK FRACTURE. TODAY, SHE IS LYING IN BED WITH EYES CLOSED ON MORNING ROUNDS. SHE AWAKENS TO VERBAL STIMULI. PATIENT CONTINUES WITH DISORIENTATION. SHE CONTINUES WITH COMPLAINTS OF LEFT HIP PAIN. ON EXAMINATION, HEART IS REGULAR IN RATE AND RHYTHM. BILATERAL LUNGS ARE CLEAR TO AUSCULTATION. ABDOMEN IS ROUND, SOFT, AND NON- TENDER WITH NORMAL BOWEL SOUNDS NOTED IN ALL QUADRANTS. LEFT LEG CONTINUES WITH SCATTERED BRUISING AND DECREASED RANGE OF MOTION. HER VITALS TODAY ARE 98.2-86- 18-91%-145/65. LABS WERE OBTAINED. ABNORMAL LAB VALUES INCLUDE THE FOLLOWING: WBC 10.2, HGB 9.1, HCT 28.4, BUN 19, GLUCOSE 149, CALCIUM 8.2, BNP 110, TOTAL PROTEIN 6.3, ALBUMIN 2.5. PLANS TO TAKE PATIENT TO THE OR TODAY FOR SURGICAL REPAIR OF THE HIP. WE ARE IN AGREEMENT WITH PLAN OF CARE. OTHERWISE, WE WILL FOLLOW UP WITH AM LABS AND CONTINUE TO MONITOR. - Past Medical Family Social History Past Med/Fam/Surg Hx: No changes since H&P Allergies: Allergies ciprofloxacin Allergy (Verified 05/19/17 02:41) codeine Allergy (Verified 05/19/17 02:41) levofloxacin Allergy (Verified 05/19/17 02:41) morphine Allergy (Verified 05/19/17 02:41) niacin Allergy (Verified 05/19/17 02:41) promethazine Allergy (Verified 05/19/17 02:41) topiramate Allergy (Verified 05/19/17 02:41) - Review of Systems ROS: No change since H&P - Vital Signs and I&O's Vital Signs: Temperature 98.8 F Pulse Rate [Left Brachial] 71 Pulse Rate [Brachial] 96 Pulse Rate 77 Respiratory Rate 16 Blood Pressure [Right Arm] 107/53 Blood Pressure [Left Arm] 141/63 Blood Pressure 159/74 O2 Sat by Pulse Oximetry 100 Intake and Output: Intake & Output 10/05/17 10/06/17 10/07/17 10/08/17 11:59 11:59 11:59 11:59 Intake Total 1474 / 1474 5860 / 5860 916 / 916 870 / 870 Output Total 1400 / 1400 6195 / 6195 1550 / 1550 1500 / 1500 Balance 74 / 74 -335 / -335 -634 / -634 -630 / -630 - Physical Exam Oriented: Normal Eyes: Normal Ear: Normal Nose: Normal Throat: Normal Respiratory: Normal Cardiovascular: Normal. negative: S3, S4, Murmur : Normal Auscultation: Bowel Sounds: Normal Palpation: Normal Tenderness: Normal Skin: Normal Musculoskeletal: Left, Hip, Swelling, Tender, Instability, Crepitance Psychiatric: Normal Mood Description: Calm Affect: Normal Speech Pattern: Clear, Appropriate - Laboratory and Diagnostics Result Diagrams: 10/08/17 04:04 10/08/17 04:04 Labs: Laboratory WBC 11.4 X10^3/uL (3.6-10.0) H 10/08/17 04:04 RBC 3.62 X10^6/uL (3.5-5.4) 10/08/17 04:04 Hgb 8.7 g/dL (12.0-16.0) L 10/08/17 04:04 Hct 27.0 % (36.0-47.0) L 10/08/17 04:04 MCV 74.5 fL (80.0-100.0) L 10/08/17 04:04 MCH 23.9 pg (27.0-34.0) L 10/08/17 04:04 MCHC 32.1 g/dL (33.0-35.0) L 10/08/17 04:04 RDW 21.6 % (11.6-16.5) H 10/08/17 04:04 Plt Count 334 X10^3/uL (150.0-450.0) 10/08/17 04:04 Plt Count Comment Adequate (ADEQUATE) 10/08/17 04:04 MPV 8.1 fL (7.4-11.0) 10/08/17 04:04 Neut % (Auto) 78.2 % (42.0-75.0) H 10/08/17 04:04 Lymph % (Auto) 12.5 % (21.0-51.0) L 10/08/17 04:04 [place] % (Auto) 7.3 % (0.0-13.0) 10/08/17 04:04 Eos % (Auto) 1.5 % (0.9-2.9) 10/08/17 04:04 Baso % (Auto) 0.5 % (0.2-1.0) 10/08/17 04:04 Neut # (Auto) 8.9 x10^3/uL (2.2-4.8) H 10/08/17 04:04 Lymph # (Auto) 1.4 X10^3/uL (1.3-2.9) 10/08/17 04:04 [place] # (Auto) 0.8 x10^3/uL (0.3-0.8) 10/08/17 04:04 Eos # (Auto) 0.2 x10^3/uL (0.0-0.2) 10/08/17 04:04 Baso # (Auto) 0.1 X10^3/uL (0.0-0.1) 10/08/17 04:04 Absolute Nucleated RBC 0.0 /100WBC 10/08/17 04:04 Plt Morphology Comment Normal (NORMAL) 10/08/17 04:04 RBC Morphology Abnormal (NORMAL) A 10/08/17 04:04 Hypochromasia 1+ A 10/08/17 04:04 Anisocytosis 1+ A 10/08/17 04:04 Microcytosis Slight A 10/04/17 05:10 Sodium 146 mmol/L (136-145) H 10/08/17 04:04 Corrected Sodium TNP 10/08/17 04:04 Potassium 4.1 mmol/L (3.5-5.1) 10/08/17 04:04 Chloride 112 mmol/L (98-107) H 10/08/17 04:04 Carbon Dioxide 25.1 mmol/L (21-32) 10/08/17 04:04 BUN 21 mg/dL (7-18) H 10/08/17 04:04 Creatinine 0.81 mg/dL (0.55-1.02) 10/08/17 04:04 Est GFR (MDRD) Af Amer > 60 (>60) 10/08/17 04:04 Est GFR (MDRD) Non-Af > 60 (>60) 10/08/17 04:04 Glucose 97 mg/dL (65-99) 10/08/17 04:04 POC Glucose (mg/dL) 95 mg/dL (65-99) 10/08/17 05:08 Calcium 8.1 mg/dL (8.5-10.1) L 10/08/17 04:04 Corrected Calcium 9.6 mg/dL (8.5-10.1) 10/08/17 04:04 Total Bilirubin 0.60 mg/dL (0.2-1.0) 10/08/17 04:04 AST 34 Units/L (15-37) 10/08/17 04:04 ALT 25 Units/L (12-78) 10/08/17 04:04 Alkaline Phosphatase 78 Units/L (46-116) 10/08/17 04:04 B-Natriuretic Peptide 110 pg/mL (0-79) H 10/05/17 04:20 Total Protein 5.9 g/dL (6.4-8.2) L 10/08/17 04:04 Albumin 2.1 g/dL (3.4-5.0) L 10/08/17 04:04 Globulin 3.8 g/dL (2.5-4.5) 10/08/17 04:04 Albumin/Globulin Ratio 0.6 Ratio (1.1-2.1) L 10/08/17 04:04 Specimen Type Catherized urine 10/04/17 04:31 Urine Color Yellow (YELLOW) 10/04/17 04:31 Urine Appearance Clear (CLEAR) 10/04/17 04:31 Urine pH 5.0 (5.0 - 8.0) 10/04/17 04:31 Ur Specific [place] 1.015 (1.000-1.030) 10/04/17 04:31 Urine Protein 1+ (NEGATIVE) 10/04/17 04:31 Urine Glucose (UA) 4+ (NEGATIVE) 10/04/17 04:31 Urine Ketones 1+ (NEGATIVE) 10/04/17 04:31 Urine Occult Blood 1+ (NEGATIVE) 10/04/17 04:31 Urine Nitrite Negative (NEGATIVE) 10/04/17 04:31 Urine Bilirubin Negative (NEGATIVE) 10/04/17 04:31 Urine Urobilinogen Normal (NORMAL) 10/04/17 04:31 Ur Leukocyte Esterase 1+ (NEGATIVE) 10/04/17 04:31 Urine RBC 0-2 /HPF (NONE SEEN) 10/04/17 04:31 Urine WBC None seen /HPF (NONE SEEN) 10/04/17 04:31 Ur Squamous Epith Cells Rare /HPF (NEGATIVE) 10/04/17 04:31 Amorphous Sediment 2+ /HPF (NEGATIVE) 10/04/17 04:31 Urine Bacteria Negative /HPF (NEGATIVE) 10/04/17 04:31 Ur Culture Indicated? No/not indicated 10/04/17 04:31 Staph aureus (PCR) Negative (NEGATIVE) 10/06/17 07:55 MRSA (PCR) Negative (NEGATIVE) 10/06/17 07:55 Blood Type O POSITIVE 10/04/17 09:55 Antibody Screen Negative 10/04/17 09:55 Crossmatch See Detail 10/04/17 09:55 - Plan (1) Femoral neck fracture Status: Acute Qualifiers: Encounter type: initial encounter Fracture type: closed Laterality: left Qualified Code(s): S72.002A - Fracture of unspecified part of neck of left femur, initial encounter for closed fracture Plan: ADMIT, DEMEROL IV FOR PAIN CONTROL, ZOFRAN FOR NAUSEA, ORTHOPEDIC CONSULT , OBTAIN PELVIS CT, CONTINUE TO MONITOR
--- NOTE | 2017-10-08 08:23 | PCM.PROG ---
Progress Note - Progress Note for Day of Date of Exam: 10/07/17 - Subjective Subjective: WAS ADMITTED FOR A LEFT FEMORAL NECK FRACTURE. SHE IS DAY 1 POST OP. TODAY, SHE IS LYING IN BED WITH EYES CLOSED ON MORNING ROUNDS. SHE AWAKENS TO VERBAL STIMULI. PATIENT CONTINUES WITH DISORIENTATION AND CONFUSION. SHE CONTINUES WITH COMPLAINTS OF LEFT HIP PAIN. ON EXAMINATION, HEART IS REGULAR IN RATE AND RHYTHM. BILATERAL LUNGS ARE CLEAR TO AUSCULTATION. ABDOMEN IS ROUND, SOFT, AND NON-TENDER WITH NORMAL BOWEL SOUNDS NOTED IN ALL QUADRANTS. LEFT HIP IS NOTED WITH A SURGICAL DRESSING. DRESSING IS DRY AND INTACT WITH NO SIGNS OR SX INFECTION NOTED TO AREA. HER VITALS TODAY ARE 100.2- 107-22-96%-134/65. LABS WERE OBTAINED. ABNORMAL LAB VALUES INCLUDE THE FOLLOWING : WBC 11.6, HGB 8.6, HCT 27.2, SODIUM 146, CHLORIDE 112, BUN 21, CALCIUM 8.1, TOTAL PROTEIN 5.9, ALBUMIN 2.1. PHYSICAL THERAPY WILL WORK WITH PATIENT ON GETTING OUT OF BED TODAY. WE WILL TRANSFUSE HER WITH ONE UNIT OF PACKED RED BLOOD CELLS. OTHERWISE, WE WILL FOLLOW UP WITH AM LABS AND CONTINUE TO MONITOR. - Past Medical Family Social History Past Med/Fam/Surg Hx: No changes since H&P Allergies: Allergies ciprofloxacin Allergy (Verified 05/19/17 02:41) codeine Allergy (Verified 05/19/17 02:41) levofloxacin Allergy (Verified 05/19/17 02:41) morphine Allergy (Verified 05/19/17 02:41) niacin Allergy (Verified 05/19/17 02:41) promethazine Allergy (Verified 05/19/17 02:41) topiramate Allergy (Verified 05/19/17 02:41) - Review of Systems ROS: No change since H&P - Vital Signs and I&O's Vital Signs: Temperature 99.3 F Pulse Rate [Left Brachial] 84 Pulse Rate [Brachial] 96 Pulse Rate 77 Respiratory Rate 20 Blood Pressure [Right Arm] 129/60 Blood Pressure [Left Arm] 141/63 Blood Pressure 159/74 O2 Sat by Pulse Oximetry 98 Intake and Output: Intake & Output 10/05/17 10/06/17 10/07/17 10/08/17 11:59 11:59 11:59 11:59 Intake Total 1474 / 1474 5860 / 5860 916 / 916 870 / 870 Output Total 1400 / 1400 6195 / 6195 1550 / 1550 1500 / 1500 Balance 74 / 74 -335 / -335 -634 / -634 -630 / -630 - Physical Exam Oriented: Normal Eyes: Normal Ear: Normal Nose: Normal Throat: Normal Respiratory: Normal Cardiovascular: Normal. negative: S3, S4, Murmur : Normal Auscultation: Bowel Sounds: Normal Tenderness: Normal Skin: Normal Musculoskeletal: Left, Hip, Swelling, Tender, Instability, Crepitance Psychiatric: Normal Mood Description: Calm Affect: Normal Speech Pattern: Clear, Appropriate - Laboratory and Diagnostics Result Diagrams: 10/09/17 15:47 10/09/17 04:14 Labs: Laboratory WBC 11.4 X10^3/uL (3.6-10.0) H 10/08/17 04:04 RBC 3.62 X10^6/uL (3.5-5.4) 10/08/17 04:04 Hgb 8.7 g/dL (12.0-16.0) L 10/08/17 04:04 Hct 27.0 % (36.0-47.0) L 10/08/17 04:04 MCV 74.5 fL (80.0-100.0) L 10/08/17 04:04 MCH 23.9 pg (27.0-34.0) L 10/08/17 04:04 MCHC 32.1 g/dL (33.0-35.0) L 10/08/17 04:04 RDW 21.6 % (11.6-16.5) H 10/08/17 04:04 Plt Count 334 X10^3/uL (150.0-450.0) 10/08/17 04:04 Plt Count Comment Adequate (ADEQUATE) 10/08/17 04:04 MPV 8.1 fL (7.4-11.0) 10/08/17 04:04 Neut % (Auto) 78.2 % (42.0-75.0) H 10/08/17 04:04 Lymph % (Auto) 12.5 % (21.0-51.0) L 10/08/17 04:04 [place] % (Auto) 7.3 % (0.0-13.0) 10/08/17 04:04 Eos % (Auto) 1.5 % (0.9-2.9) 10/08/17 04:04 Baso % (Auto) 0.5 % (0.2-1.0) 10/08/17 04:04 Neut # (Auto) 8.9 x10^3/uL (2.2-4.8) H 10/08/17 04:04 Lymph # (Auto) 1.4 X10^3/uL (1.3-2.9) 10/08/17 04:04 [place] # (Auto) 0.8 x10^3/uL (0.3-0.8) 10/08/17 04:04 Eos # (Auto) 0.2 x10^3/uL (0.0-0.2) 10/08/17 04:04 Baso # (Auto) 0.1 X10^3/uL (0.0-0.1) 10/08/17 04:04 Absolute Nucleated RBC 0.0 /100WBC 10/08/17 04:04 Plt Morphology Comment Normal (NORMAL) 10/08/17 04:04 RBC Morphology Abnormal (NORMAL) A 10/08/17 04:04 Hypochromasia 1+ A 10/08/17 04:04 Anisocytosis 1+ A 10/08/17 04:04 Microcytosis Slight A 10/04/17 05:10 Sodium 146 mmol/L (136-145) H 10/08/17 04:04 Corrected Sodium TNP 10/08/17 04:04 Potassium 4.1 mmol/L (3.5-5.1) 10/08/17 04:04 Chloride 112 mmol/L (98-107) H 10/08/17 04:04 Carbon Dioxide 25.1 mmol/L (21-32) 10/08/17 04:04 BUN 21 mg/dL (7-18) H 10/08/17 04:04 Creatinine 0.81 mg/dL (0.55-1.02) 10/08/17 04:04 Est GFR (MDRD) Af Amer > 60 (>60) 10/08/17 04:04 Est GFR (MDRD) Non-Af > 60 (>60) 10/08/17 04:04 Glucose 97 mg/dL (65-99) 10/08/17 04:04 POC Glucose (mg/dL) 95 mg/dL (65-99) 10/08/17 05:08 Calcium 8.1 mg/dL (8.5-10.1) L 10/08/17 04:04 Corrected Calcium 9.6 mg/dL (8.5-10.1) 10/08/17 04:04 Total Bilirubin 0.60 mg/dL (0.2-1.0) 10/08/17 04:04 AST 34 Units/L (15-37) 10/08/17 04:04 ALT 25 Units/L (12-78) 10/08/17 04:04 Alkaline Phosphatase 78 Units/L (46-116) 10/08/17 04:04 B-Natriuretic Peptide 110 pg/mL (0-79) H 10/05/17 04:20 Total Protein 5.9 g/dL (6.4-8.2) L 10/08/17 04:04 Albumin 2.1 g/dL (3.4-5.0) L 10/08/17 04:04 Globulin 3.8 g/dL (2.5-4.5) 10/08/17 04:04 Albumin/Globulin Ratio 0.6 Ratio (1.1-2.1) L 10/08/17 04:04 Specimen Type Catherized urine 10/04/17 04:31 Urine Color Yellow (YELLOW) 10/04/17 04:31 Urine Appearance Clear (CLEAR) 10/04/17 04:31 Urine pH 5.0 (5.0 - 8.0) 10/04/17 04:31 Ur Specific [place] 1.015 (1.000-1.030) 10/04/17 04:31 Urine Protein 1+ (NEGATIVE) 10/04/17 04:31 Urine Glucose (UA) 4+ (NEGATIVE) 10/04/17 04:31 Urine Ketones 1+ (NEGATIVE) 10/04/17 04:31 Urine Occult Blood 1+ (NEGATIVE) 10/04/17 04:31 Urine Nitrite Negative (NEGATIVE) 10/04/17 04:31 Urine Bilirubin Negative (NEGATIVE) 10/04/17 04:31 Urine Urobilinogen Normal (NORMAL) 10/04/17 04:31 Ur Leukocyte Esterase 1+ (NEGATIVE) 10/04/17 04:31 Urine RBC 0-2 /HPF (NONE SEEN) 10/04/17 04:31 Urine WBC None seen /HPF (NONE SEEN) 10/04/17 04:31 Ur Squamous Epith Cells Rare /HPF (NEGATIVE) 10/04/17 04:31 Amorphous Sediment 2+ /HPF (NEGATIVE) 10/04/17 04:31 Urine Bacteria Negative /HPF (NEGATIVE) 10/04/17 04:31 Ur Culture Indicated? No/not indicated 10/04/17 04:31 Staph aureus (PCR) Negative (NEGATIVE) 10/06/17 07:55 MRSA (PCR) Negative (NEGATIVE) 10/06/17 07:55 Blood Type O POSITIVE 10/04/17 09:55 Antibody Screen Negative 10/04/17 09:55 Crossmatch See Detail 10/04/17 09:55 - Plan (1) Femoral neck fracture Status: Acute Qualifiers: Encounter type: initial encounter Fracture type: closed Laterality: left Qualified Code(s): S72.002A - Fracture of unspecified part of neck of left femur, initial encounter for closed fracture Plan: ADMIT, DEMEROL IV FOR PAIN CONTROL, ZOFRAN FOR NAUSEA, PHYSICAL THERAPY TODAY, CONTINUE TO MONITOR (2) Anemia Status: Acute Qualifiers: Anemia type: iron deficiency Iron deficiency anemia type: unspecified iron deficiency Qualified Code(s): D50.9 - Iron deficiency anemia, unspecified Plan: transfuse PRBC, continue to monitor
[2017-10-08] MEDS: PROVENTIL NEB TX 0.083% 2.5MG/ 3ML NEB SCH ×4 (08:31→21:10)
[2017-10-08] MEDS ORDERED: ZOLOFT PO ONE (08:42)
[2017-10-08] MEDS: CANAGLIFLOZIN 100 MG PO SCH (09:19)
[2017-10-08] MEDS: ATIVAN TAB 0.5 MG PO SCH (09:19)
[2017-10-08] MEDS: LASIX PO SCH (09:20)
[2017-10-08] MEDS: HEMOCYTE-PLUS PO SCH (09:20)
[2017-10-08] MEDS: DIOVAN TAB 80 MG PO SCH ×2 (09:20→20:42)
[2017-10-08] MEDS: LOVENOX INJ 30 MG SYR SC SCH ×2 (09:20→22:29)
[2017-10-08] MEDS: ZOCOR TAB 20 MG PO SCH (09:21)
[2017-10-08] MEDS: ZETIA TAB 10 MG PO SCH (09:21)
[2017-10-08] MEDS: PROTONIX INJ 40 MG VIAL IVP SCH (09:21)
[2017-10-08] MEDS: MILK OF MAGNESIA PO SCH ×2 (09:21→20:42)
[2017-10-08] MEDS: ZOLOFT PO SCH (09:22)
[2017-10-08] MEDS: PERCOCET TAB 5/325 MG PO PRN ×3 (09:22→23:43)
[2017-10-08] MEDS: DEMEROL INJ IVP PRN (16:05)
[2017-10-08] MEDS: SNACK - Diabetic Appropriate PO SCH (20:42)
[2017-10-08] MEDS: COLACE CAP 100 MG PO SCH (20:42)
[2017-10-08] MEDS: TRICOR TAB 160 MG PO SCH (20:43)
--- NOTE | 2017-10-08 23:32 | PCM.PROG ---
Progress Note - Progress Note for Day of Date of Exam: 10/08/17 - Subjective Subjective: WAS ADMITTED FOR A LEFT FEMORAL NECK FRACTURE. SHE IS DAY 2 POST OP. TODAY, SHE IS LYING IN BED WITH EYES CLOSED ON MORNING ROUNDS. SHE AWAKENS TO VERBAL STIMULI. PATIENT CONTINUES WITH DISORIENTATION AND CONFUSION. SHE CONTINUES WITH COMPLAINTS OF LEFT HIP PAIN, BUT APPEARS TO BE MORE COMFORTABLE THAN YESTERDAY. SHE IS INCONTINUNT OF HER BOWELS THIS MORNING. ON EXAMINATION, HEART IS REGULAR IN RATE AND RHYTHM. BILATERAL LUNGS ARE CLEAR TO AUSCULTATION. ABDOMEN IS ROUND, SOFT, AND NON-TENDER WITH NORMAL BOWEL SOUNDS NOTED IN ALL QUADRANTS. LEFT HIP IS NOTED WITH A SURGICAL DRESSING. DRESSING IS DRY AND INTACT WITH NO SIGNS OR SX INFECTION NOTED TO AREA. HER VITALS TODAY ARE 99.3-84-20-98%-129/60. LABS WERE OBTAINED. ABNORMAL LAB VALUES INCLUDE THE FOLLOWING: WBC 11.4, HGB 8.7, HCT 27.0, SODIUM 146, CHLORIDE 112, BUN 21, CALCIUM 8.1, TOTAL PROTEIN 5.9, ALBUMIN 2.1. PHYSICAL THERAPY HAS ATTEMPTED TO WORK WITH PATIENT, HOWEVER, PATIENT IS UNABLE TO COOPERATE AND HAS BECAME CONFUSED AND COMBATIVE. TODAY, WE WILL CONTINUE WITH CURRENT PLAN OF CARE AND ATTEMPT TO PERFOTM PHYSICAL THERAPY TODAY. OTHERWISE, WE WILL FOLLOW UP WITH AM LABS AND CONTINUE TO MONITOR. - Past Medical Family Social History Past Med/Fam/Surg Hx: No changes since H&P Allergies: Allergies ciprofloxacin Allergy (Verified 05/19/17 02:41) codeine Allergy (Verified 05/19/17 02:41) levofloxacin Allergy (Verified 05/19/17 02:41) morphine Allergy (Verified 05/19/17 02:41) niacin Allergy (Verified 05/19/17 02:41) promethazine Allergy (Verified 05/19/17 02:41) topiramate Allergy (Verified 05/19/17 02:41) - Review of Systems ROS: No change since H&P - Vital Signs and I&O's Vital Signs: Temperature 98.0 F Pulse Rate [Left Brachial] 100 Pulse Rate [Brachial] 96 Pulse Rate 82 Respiratory Rate 22 Blood Pressure [Right Arm] 151/70 Blood Pressure [Left Arm] 141/63 Blood Pressure 159/74 O2 Sat by Pulse Oximetry 90 Intake and Output: Intake & Output 10/06/17 10/07/17 10/08/17 10/09/17 11:59 11:59 11:59 11:59 Intake Total 5860 / 5860 916 / 916 870 / 870 750 / 750 Output Total 6195 / 6195 1550 / 1550 1500 / 1500 1450 / 1450 Balance -335 / -335 -634 / -634 -630 / -630 -700 / -700 - Physical Exam Oriented: Normal Eyes: Normal Ear: Normal Nose: Normal Throat: Normal Respiratory: Normal Cardiovascular: Normal. negative: S3, S4, Murmur : Normal Auscultation: Bowel Sounds: Normal Tenderness: Normal Skin: Normal Musculoskeletal: Left, Hip, Swelling, Tender, Instability, Crepitance Psychiatric: Normal Mood Description: Calm Affect: Normal Speech Pattern: Clear, Appropriate - Laboratory and Diagnostics Result Diagrams: 10/08/17 04:04 10/08/17 04:04 Labs: Laboratory WBC 11.4 X10^3/uL (3.6-10.0) H 10/08/17 04:04 RBC 3.62 X10^6/uL (3.5-5.4) 10/08/17 04:04 Hgb 8.7 g/dL (12.0-16.0) L 10/08/17 04:04 Hct 27.0 % (36.0-47.0) L 10/08/17 04:04 MCV 74.5 fL (80.0-100.0) L 10/08/17 04:04 MCH 23.9 pg (27.0-34.0) L 10/08/17 04:04 MCHC 32.1 g/dL (33.0-35.0) L 10/08/17 04:04 RDW 21.6 % (11.6-16.5) H 10/08/17 04:04 Plt Count 334 X10^3/uL (150.0-450.0) 10/08/17 04:04 Plt Count Comment Adequate (ADEQUATE) 10/08/17 04:04 MPV 8.1 fL (7.4-11.0) 10/08/17 04:04 Neut % (Auto) 78.2 % (42.0-75.0) H 10/08/17 04:04 Lymph % (Auto) 12.5 % (21.0-51.0) L 10/08/17 04:04 [place] % (Auto) 7.3 % (0.0-13.0) 10/08/17 04:04 Eos % (Auto) 1.5 % (0.9-2.9) 10/08/17 04:04 Baso % (Auto) 0.5 % (0.2-1.0) 10/08/17 04:04 Neut # (Auto) 8.9 x10^3/uL (2.2-4.8) H 10/08/17 04:04 Lymph # (Auto) 1.4 X10^3/uL (1.3-2.9) 10/08/17 04:04 [place] # (Auto) 0.8 x10^3/uL (0.3-0.8) 10/08/17 04:04 Eos # (Auto) 0.2 x10^3/uL (0.0-0.2) 10/08/17 04:04 Baso # (Auto) 0.1 X10^3/uL (0.0-0.1) 10/08/17 04:04 Absolute Nucleated RBC 0.0 /100WBC 10/08/17 04:04 Plt Morphology Comment Normal (NORMAL) 10/08/17 04:04 RBC Morphology Abnormal (NORMAL) A 10/08/17 04:04 Hypochromasia 1+ A 10/08/17 04:04 Anisocytosis 1+ A 10/08/17 04:04 Microcytosis Slight A 10/04/17 05:10 Sodium 146 mmol/L (136-145) H 10/08/17 04:04 Corrected Sodium TNP 10/08/17 04:04 Potassium 4.1 mmol/L (3.5-5.1) 10/08/17 04:04 Chloride 112 mmol/L (98-107) H 10/08/17 04:04 Carbon Dioxide 25.1 mmol/L (21-32) 10/08/17 04:04 BUN 21 mg/dL (7-18) H 10/08/17 04:04 Creatinine 0.81 mg/dL (0.55-1.02) 10/08/17 04:04 Est GFR (MDRD) Af Amer > 60 (>60) 10/08/17 04:04 Est GFR (MDRD) Non-Af > 60 (>60) 10/08/17 04:04 Glucose 97 mg/dL (65-99) 10/08/17 04:04 POC Glucose (mg/dL) 140 mg/dL (65-99) H 10/08/17 20:03 Calcium 8.1 mg/dL (8.5-10.1) L 10/08/17 04:04 Corrected Calcium 9.6 mg/dL (8.5-10.1) 10/08/17 04:04 Total Bilirubin 0.60 mg/dL (0.2-1.0) 10/08/17 04:04 AST 34 Units/L (15-37) 10/08/17 04:04 ALT 25 Units/L (12-78) 10/08/17 04:04 Alkaline Phosphatase 78 Units/L (46-116) 10/08/17 04:04 B-Natriuretic Peptide 110 pg/mL (0-79) H 10/05/17 04:20 Total Protein 5.9 g/dL (6.4-8.2) L 10/08/17 04:04 Albumin 2.1 g/dL (3.4-5.0) L 10/08/17 04:04 Globulin 3.8 g/dL (2.5-4.5) 10/08/17 04:04 Albumin/Globulin Ratio 0.6 Ratio (1.1-2.1) L 10/08/17 04:04 Specimen Type Catherized urine 10/04/17 04:31 Urine Color Yellow (YELLOW) 10/04/17 04:31 Urine Appearance Clear (CLEAR) 10/04/17 04:31 Urine pH 5.0 (5.0 - 8.0) 10/04/17 04:31 Ur Specific [place] 1.015 (1.000-1.030) 10/04/17 04:31 Urine Protein 1+ (NEGATIVE) 10/04/17 04:31 Urine Glucose (UA) 4+ (NEGATIVE) 10/04/17 04:31 Urine Ketones 1+ (NEGATIVE) 10/04/17 04:31 Urine Occult Blood 1+ (NEGATIVE) 10/04/17 04:31 Urine Nitrite Negative (NEGATIVE) 10/04/17 04:31 Urine Bilirubin Negative (NEGATIVE) 10/04/17 04:31 Urine Urobilinogen Normal (NORMAL) 10/04/17 04:31 Ur Leukocyte Esterase 1+ (NEGATIVE) 10/04/17 04:31 Urine RBC 0-2 /HPF (NONE SEEN) 10/04/17 04:31 Urine WBC None seen /HPF (NONE SEEN) 10/04/17 04:31 Ur Squamous Epith Cells Rare /HPF (NEGATIVE) 10/04/17 04:31 Amorphous Sediment 2+ /HPF (NEGATIVE) 10/04/17 04:31 Urine Bacteria Negative /HPF (NEGATIVE) 10/04/17 04:31 Ur Culture Indicated? No/not indicated 10/04/17 04:31 Staph aureus (PCR) Negative (NEGATIVE) 10/06/17 07:55 MRSA (PCR) Negative (NEGATIVE) 10/06/17 07:55 Blood Type O POSITIVE 10/04/17 09:55 Antibody Screen Negative 10/04/17 09:55 Crossmatch See Detail 10/04/17 09:55 - Plan (1) Femoral neck fracture Status: Acute Qualifiers: Encounter type: initial encounter Fracture type: closed Laterality: left Qualified Code(s): S72.002A - Fracture of unspecified part of neck of left femur, initial encounter for closed fracture Plan: ADMIT, DEMEROL IV FOR PAIN CONTROL, ZOFRAN FOR NAUSEA, PHYSICAL THERAPY TODAY, CONTINUE TO MONITOR
[2017-10-09 05:30] LABS: ALANINE AMINOTRANSFERASE 29 Units/L (12-78); ALBUMIN 1.9 g/dL (3.4-5.0); ALKALINE PHOSPHATASE 83 Units/L (46-116); ASPARTATE AMINO TRANSFERASE 32 Units/L (15-37); BLOOD UREA NITROGEN 13 mg/dL (7-18); CALCIUM 7.9 mg/dL (8.5-10.1); CHLORIDE 111 mmol/L (98-107); COR CA(FOR HYPOALB) 9.6 mg/dL (8.5-10.1); COR NA(FOR HYPERGLY) 145 mmol/L (136-145); CREATININE 0.63 mg/dL (0.55-1.02); SODIUM 144 mmol/L (136-145); TOTAL PROTEIN 5.4 g/dL (6.4-8.2); eGFR NON BLACK RACES > 60 (>60)
[2017-10-09 05:43] LABS: BASOPHILS # (AUTO) 0.1 X10^3/uL (0.0-0.1); BASOPHILS % (AUTO) 0.7 % (0.2-1.0); EOSINOPHILS # (AUTO) 0.3 x10^3/uL (0.0-0.2); HEMATOCRIT 24.4 % (36.0-47.0); LYMPHOCYTES # (AUTO) 2.1 X10^3/uL (1.3-2.9); LYMPHOCYTES % (AUTO) 19.7 % (21.0-51.0); MEAN CORPUSCULAR HEMOGLOBIN 24.3 pg (27.0-34.0); MEAN CORPUSCULAR HGB CONC 32.8 g/dL (33.0-35.0); MEAN CORPUSCULAR VOLUME 74.1 fL (80.0-100.0); MEAN PLATELET VOLUME 8.4 fL (7.4-11.0); MONOCYTES # (AUTO) 0.5 x10^3/uL (0.3-0.8); MONOCYTES % (AUTO) 4.6 % (0.0-13.0); NEUTROPHILS # (AUTO) 7.5 x10^3/uL (2.2-4.8); PLATELET COUNT 322 X10^3/uL (150.0-450.0); RED BLOOD COUNT 3.29 X10^6/uL (3.5-5.4); RED CELL DISTRIBUTION WIDTH 21.5 % (11.6-16.5); WHITE BLOOD COUNT 10.5 X10^3/uL (3.6-10.0)
[2017-10-09 06:03] LABS: ANISOCYTOSIS 1+; HYPOCHROMASIA 1+; PLATELET MORPHOLOGY COMMENT NORMAL (NORMAL)
[2017-10-09] MEDS ORDERED: K-RIDER 10 MEQ/NS 100 ML 10 MEQ/100 ML BAG IV PRN (06:19)
[2017-10-09] MEDS ORDERED: K-LYTE EFFERVESCENT PO PRN (06:19)
[2017-10-09] MEDS ORDERED: POTASSIUM CHL 60 MEQ/NS 0.45% 500 ML IV PRN (06:19)
[2017-10-09] MEDS ORDERED: POTASSIUM CHLORIDE LIQ 20 MEQ UDC PO PRN (06:19)
[2017-10-09] MEDS ORDERED: POTASSIUM CHL 40 MEQ/NS 0.45% 500 ML IV PRN (06:19)
[2017-10-09] MEDS ORDERED: MAGNESIUM SULFATE 1 GRAM/100 mL PREMIX 1 GM/100 ML BAG IV PRN (06:19)
[2017-10-09] MEDS ORDERED: ZOLOFT PO ONE (08:14)
[2017-10-09] MEDS: MILK OF MAGNESIA PO SCH (08:28)
[2017-10-09] MEDS: ATIVAN TAB 0.5 MG PO SCH (08:29)
[2017-10-09] MEDS: DIOVAN TAB 80 MG PO SCH (08:29)
[2017-10-09] MEDS: PERCOCET TAB 5/325 MG PO PRN ×2 (08:30→14:58)
[2017-10-09] MEDS: ZETIA TAB 10 MG PO SCH (08:30)
[2017-10-09] MEDS: HEMOCYTE-PLUS PO SCH (08:31)
[2017-10-09] MEDS: LASIX PO SCH (08:31)
[2017-10-09] MEDS: ZOCOR TAB 20 MG PO SCH (08:31)
[2017-10-09] MEDS: CANAGLIFLOZIN 100 MG PO SCH (08:32)
[2017-10-09] MEDS: ZOLOFT PO SCH (08:32)
[2017-10-09] MEDS: PROTONIX INJ 40 MG VIAL IVP SCH (08:32)
[2017-10-09] MEDS: LOVENOX INJ 30 MG SYR SC SCH (08:33)
[2017-10-09] MEDS: PROVENTIL NEB TX 0.083% 2.5MG/ 3ML NEB SCH ×2 (09:17→13:07)
[2017-10-09] MEDS ORDERED: NS 100 ML IV 100 ML IV ONE (11:00)
[2017-10-09] MEDS: DEMEROL INJ IVP PRN (11:04)
[2017-10-09 13:14] VITALS: BP 112/53
[2017-10-09 15:54] LABS: HEMATOCRIT 31.4 % (36.0-47.0)
--- NOTE | 2017-10-10 14:41 | OR.GENERIC ---
Post-Op Note Generic - Post-Op Note Operative Report: PREOPERATIVE DIAGNOSIS- LEFT HIP FRACTURE NECK OF FEMUR, PATHOLOGICAL, DISPLACED , TRANSCERVICAL POSTOPERATIVE DIAGNOSIS-LEFT HIPfRACTURE NECK OF FEMUR, INTRACAPSULAR, TRANSCERVICDISPLACED, PATHOLOGICAL pROCEDURE-LEFT HIP BIPOLAR HEMIARTHROPLASTY, UNCEMENTED iMPLANTS USED-mahesh ACCOLADE II fEMUR-SIZE 5, 127 NECK, +0 NECK bIPOLAR UNIVERSAL HEAD 48 MM indication- is a 72-year-old female who presents to the emergency room after a fall at home. She was seen in the emergency room and examination and x-rays and a computed tomography scan confirmed that it is not displaced intracapsular fracture of the LEFT hip. She was admitted and underwent medical consultation was placed for me. History was again reviewed with her. After clearance from the medicine and the anesthesia she was posted for surgery. Natural history and treatment discussions were done with the family. Surgical option for fixation versus tj-replacement versus total hip replacement were discussed with them. Computed tomography scan did not show any signs of osteoarthritis as well as the x-rays. So I offered them tj- bipolar arthroplasty. Risks and benefits were discussed with them. Complications including but not limited to infection, neurovascular damage, loosening, periprosthetic fracture, arthritis of the hip, persistence of pain, stiffness of the LEFT hip, need for further procedure, conversion to a total hip where he feel the complications which were discussed with them. They understood and verbalized that. preoperative-patient was seen in the preoperative holding area. Patient had gotten an epidural previous day for pain control. Limb was marked. Consent was revisited. Again the procedure was explained to them in detail. Postoperative instructions were discussed with him. She got an appropriate antibiotic. Procedure- patient was brought to the operating room. Patient was placed supine on the operating table. She was shifted to the RIGHT lateral position and secured to the pegboard. Safety straps were applied. Axillary roll was placed. The LEFT lower limb was supported with support. LEFT lower limb was prepped and draped. Landmarks as well as the proposed incision was marked.A curvilinear incision was made centering over the posterior 3rd of the greater trochanter. Incision deepened through the subcutaneous tissue and to expose the gluteus and tensor fascia lesa. Incision made in the tensor fascia lesa and the gluteal muscles split bluntly to expose the fat surrounding the short rotators. A CHARNLEY retractor was placed and made sure that there was no traction on sciatic nerve. The fat surrounding the short rotators was swept with a Ray-Augustina. The circumflex presents with cauterized. Ethibond sutures were passed through the short rotators and the short rotators were cauterized off the bone with the limb externally rotated. The capsule identified and capsulotomy done and T fashion. Again treating sutures passed through the capsule using Ethibond. The joint was entered end hematoma evacuated. Fracture was noted to be in the transcervical region, comminution noted. Severe osteoporosis noted. Using a bone rongeur the fragments where taken out. The head extracted with a corkscrew and measured to be 48. The rest of the neck exposed and retractors placed superiorly and inferiorly. The proposed neck osteotomy was marked a fingerbreadth from the lesser trocar. Osteotomy completed with an oscillating saw. The acetabulum visualized and free floating fragments were removed. The ligamentum was removed. Thorough irrigation was done and no signs of arthritis noted in the acetabular side. So decided to proceed with a bipolar arthroplasty. the femur was flexed to 90 and rotated withthe foot parallel to the floor. Using a box osteotome lateralizing the entry was done. The canal was opened with reamer. Progressive reaming was done from 0. Size 5 seems to be good fit. There was not out of periprosthetic fracture. So we went ahead and did a prophylactic and cerclage wire. broach was advanced with appropriate anteversion. Using the final broach trial reduction was done with a 0 neck and 48 head. Hip was taken through range of motion and shuck test was appropriate tension. These were the final sizes which were determined. These were opened on the back table. The broach was removed through irrigation was done. The final component was seated and the 48 head was reduced. It was again ranged and found to be stable. the capsule and Rotators were sutured back to the femur by passing them through the drill and the bone. The tensor fascia as well as the G max was closed in layers. subcutaneous tissue was closed with the QUILL 20. The skin was stapled. Sterile dressing was applied. Patient was taken off the pegboard and placed supine on the recovery table with an abduction pillow. Postoperative x-rays were obtained which showed appropriately sized and aligned hip processes . No complications were noted. The family was briefed about the procedure. Postoperative instructions were given to them. She is advised to be inpatient and go through rehabilitation. We will make appropriate rehabilitation arrangements for her. Regular dressing change and posterior hip precautions were discussed with him. Weightbearing as tolerated/100 percent weightbearing is allowed. All the questions were discussed with the patient.
--- NOTE | 2017-11-11 20:30 | DR.CARTERD ---
- Discharge Summary for: Discharge Summary for Date of:: 10/09/17 - Admission Date Date of Admission: 10/04/17 - Admission Diagnoses Admission Diagnosis: (1) Femoral neck fracture (2) Anemia (3) Altered mental status - Discharge Date Discharge Date: 10/09/17 - Discharge Diagnoses Discharge Diagnosis: (1) Femoral neck fracture (2) Anemia (3) Altered mental status - Hospital Course Hospital Course: IS A 72 YEAR OLD PATIENT OF . SHE IS A RESIDENT OF [facility]. GROUP HOME STAFF REPORTED THAT PATIENT FELL TWICE PRIOR TO ADMISSION AND COMPLAINED OF HIP PAIN. AN OUTPATIENT HIP XRAY WAS OBTAINED OF THE LEFT HIP AND REVEALED: ACUTE LEFT FEMORAL NECK FRACTURE. SHE ALSO COMPLAINED OF LEFT KNEE PAIN AND LEFT WRIST PAIN, HOWEVER, XRAY REVEALED NO ACUTE ABNORMALITIES. PATIENT WAS ADMITTED TO THE HOSPITAL FOR FURTHER EVALUATION AND TREATMENT. ON ARRIVAL, VITALS WERE 98.4-101-20-95%-137/65. LABS WERE OBTAINED. ABNORMAL LAB VALUES INCLUDE THE FOLLOWING: WBC 13.7, HGB 10.4, HCT 33.1, BUN 27, CREATININE 1.19, GLUCOSE 226. WE CONSULTED AND STARTED PATIENT ON NORMAL SALINE AT 50ML/HR, DEMEROL 25MG IV Q4H PRN FOR PAIN CONTROL, AND ZOFRAN 4MG IV Q8H PRN FOR NAUSEA. A PELVIS CT WAS OBTAINED AND REVEALED: There is a displaced and angulated, Garden classification 2/3, left subcapital femoral neck fracture with adjacent soft tissue swelling/edema. No pathologic fracture or lytic bony lesion is seen on this examination. No SI joint diastases or other acute bony injury is seen. SHE WAS ADMITTED FOR FURTHER EVALUATION AND TREATMENT. ON DAY TWO OF HOSPITAL STAY, , WAS NOTED WITH DISORIENTATION. SHE CONTINUED WITH COMPLAINTS OF LEFT HIP PAIN. ON EXAMINATION, HEART WAS REGULAR IN RATE AND RHYTHM. BILATERAL LUNGS CLEAR TO AUSCULTATION. ABDOMEN ROUND, SOFT , AND NON-TENDER WITH NORMAL BOWEL SOUNDS NOTED IN ALL QUADRANTS. LEFT LEG NOTED WITH SCATTERED BRUISING AND DECREASED RANGE OF MOTION. HER VITALS WERE 99.6-96-20-92%-146/77. LABS WERE OBTAINED. ABNORMAL LAB VALUES INCLUDE THE FOLLOWING: WBC 13.7, HGB 9.9, HCT 31.7, BUN 20, GLUCOSE 109, ALBUMIN 3.0. CONSULTED WITH PATIENT AND PLANNED TO TAKE PATIENT TO THE OR FOR REPAIR OF FRACTURED HIP TOMORROW. WE WERE IN AGREEMENT WITH PLAN AND MEDICALLY CLEARED PATIENT FOR SURGICAL INTERVENTION. OTHERWISE, WE PLANNED TO FOLLOW UP WITH AM LABS AND CONTINUE TO MONITOR PATIENT. ON DAY THREE OF HOSPITAL STAY, PATIENT WAS LYING IN BED WITH EYES CLOSED ON MORNING ROUNDS. SHE AWAKENED EASILY TO VERBAL STIMULI, BUT CONTINUED WITH DISORIENTATION. SHE CONTINUED WITH COMPLAINTS OF LEFT HIP PAIN. ON EXAMINATION, HEART REGULAR IN RATE AND RHYTHM. BILATERAL LUNGS CLEAR TO AUSCULTATION. ABDOMEN ROUND, SOFT, AND NON-TENDER WITH NORMAL BOWEL SOUNDS NOTED IN ALL QUADRANTS. LEFT LEG CONTINUED WITH SCATTERED BRUISING AND DECREASED RANGE OF MOTION. HER VITALS TODAY WERE 98.2-86-18-91%-145/65. LABS WERE OBTAINED. ABNORMAL LAB VALUES INCLUDED THE FOLLOWING: WBC 10.2, HGB 9.1, HCT 28.4, BUN 19 , GLUCOSE 149, CALCIUM 8.2, BNP 110, TOTAL PROTEIN 6.3, ALBUMIN 2.5. TOOK PATIENT TO THE OR FOR LEFT HIP BIPOLAR HEMIARTHROPLASTY. PATIENT DONE WELL IN SURGERY. HE REPORTED THAT NO SURGICAL COMPLICATIONS WERE NOTED. ORDERS WERE GIVEN FOR WEIGHTBEARING TOLERATED WITH 100% WEIGHTBEARING ALLOWED. HE ORDERED FOR REGULAR DRESSING CHANGES AND POSTERIOR HIP PRECAUTIONS. ON DAY THREE OF HOSPITAL STAY, PATIENT DAY 1 POST OP. SHE WAS LYING IN BED WITH EYES CLOSED ON MORNING ROUNDS. SHE AWAKENED EASILY TO VERBAL STIMULI, BUT CONTINUED WITH DISORIENTATION AND CONFUSION. SHE CONTINUED WITH COMPLAINTS OF LEFT HIP PAIN. ON EXAMINATION, HEART REGULAR IN RATE AND RHYTHM. BILATERAL LUNGS CLEAR TO AUSCULTATION. ABDOMEN ROUND, SOFT, AND NON-TENDER WITH NORMAL BOWEL SOUNDS NOTED IN ALL QUADRANTS. LEFT HIP WAS NOTED WITH A SURGICAL DRESSING. DRESSING DRY AND INTACT WITH NO SIGNS OR SX INFECTION NOTED TO AREA. HER VITALS TODAY WERE 100.2-107-22-96%-134/65. LABS WERE OBTAINED. ABNORMAL LAB VALUES INCLUDED THE FOLLOWING: WBC 11.6, HGB 8.6, HCT 27.2, SODIUM 146, CHLORIDE 112, BUN 21, CALCIUM 8.1, TOTAL PROTEIN 5.9, ALBUMIN 2.1. PHYSICAL THERAPY TO WORK WITH PATIENT ON GETTING OUT OF BED TODAY. WE TRANSFUSED HER WITH ONE UNIT OF PACKED RED BLOOD CELLS. OTHERWISE, WE PLANNED FOLLOW UP WITH AM LABS AND CONTINUE TO MONITOR. ON DAY FOUR OF HOSPITAL STAY, SHE IS DAY 2 POST OP. SHE WAS LYING IN BED WITH EYES CLOSED ON MORNING ROUNDS. SHE AWAKENED EASILY TO VERBAL STIMULI, BUT CONTINUED WITH DISORIENTATION AND CONFUSION. SHE CONTINUED WITH COMPLAINTS OF LEFT HIP PAIN, BUT APPEARED TO BE MORE COMFORTABLE THAN YESTERDAY. SHE WAS INCONTINENT OF HER BOWELS THIS MORNING. STAFF WAS UNABLE TO GIVE HER NIGHT MEDICATIONS DUE TO EXCESSIVE DROWSINESS THROUGHOUT THE NIGHT. ON EXAMINATION, HEART REGULAR IN RATE AND RHYTHM. BILATERAL LUNGS CLEAR TO AUSCULTATION. ABDOMEN ROUND, SOFT, AND NON-TENDER WITH NORMAL BOWEL SOUNDS NOTED IN ALL QUADRANTS. LEFT HIP NOTED WITH A SURGICAL DRESSING. DRESSING DRY AND INTACT WITH NO SIGNS OR SX INFECTION NOTED TO AREA. HER VITALS TODAY WERE 99.3-84-20-98 %-129/60. LABS WERE OBTAINED. ABNORMAL LAB VALUES INCLUDED THE FOLLOWING: WBC 11.4, HGB 8.7, HCT 27.0, SODIUM 146, CHLORIDE 112, BUN 21, CALCIUM 8.1, TOTAL PROTEIN 5.9, ALBUMIN 2.1. PHYSICAL THERAPY HAS ATTEMPTED TO WORK WITH PATIENT, HOWEVER, PATIENT WAS UNABLE TO COOPERATE AND HAD BECAME CONFUSED AND COMBATIVE. WE PLANNED CONTINUE WITH CURRENT PLAN OF CARE AND PLANNED TO ATTEMPT TO PERFORM PHYSICAL THERAPY TODAY. OTHERWISE, WE PLANNED TO FOLLOW UP WITH AM LABS AND CONTINUE TO MONITOR. ON DAY FIVE OF HOSPITAL STAY, PATIENT DAY 3 POST OP. SHE CONTINUES WITH CONFUSION AND DISORIENTATION, BUT IS MORE ALERT THAN PREVIOUS DAYS. SHE CONTINUES WITH LEFT HIP PAIN, BUT FAMILY REPORTS THAT PAIN SEEMS MORE TOLERABLE AND PATIENT IS LESS COMBATIVE. ON EXAMINATION, HEART REGULAR IN RATE AND RHYTHM. BILATERAL LUNGS CLEAR TO AUSCULTATION. ABDOMEN ROUND, SOFT, AND NON- TENDER WITH NORMAL BOWEL SOUNDS NOTED IN ALL QUADRANTS. LEFT HIP NOTED WITH A SURGICAL DRESSING. DRESSING DRY AND INTACT WITH NO SIGNS OR SX INFECTION NOTED TO AREA. HER VITALS THIS MORNING WERE 97.9-78-20-93%NC-137/64. LABS WERE OBTAINED. ABNORMAL LAB VALUES INCLUDE THE FOLLOWING: WBC 10.5, RBC 3.29, HGB 8.0 , HCT 24.4, POTASSIUM 3.4, CHLORIDE 111, GLUCOSE 122, CALCIUM 7.9, TOTAL PROTEIN 5.4, ALBUMIN 1.9. WE TRANSFUSED PATIENT WITH ONE ADDITIONAL UNIT OF PACKED RED BLOOD CELLS. AFTER TRANSFUSION, HEMOGLOBIN NOTED TO BE 10.0, HCT 31.4. WE PLANNED FOR DISCHARGE BACK TO [facility]. INSTRUCTIONS FOR NEW MEDICATIONS AND FOLLOW UP WERE DISCUSSED WITH PATIENT, FAMILY, AND GROUP HOME STAFF. ALL VERBALIZED UNDERSTANDING OF ORDERS. PATIENT DISCHARGED BACK TO [facility] WITH NEW PRESCRIPTIONS FOR LOVENOX 30MG SC DAILY FOR 16 ADDITIONAL DAYS AND PERCOCET 5/325MG PO Q4H PRN PAIN. SHE WAS INSTRUCTED TO CONTINUE PREVIOUS MEDICATIONS. A CBC, IS TO BE OBTAINED EVERY OTHER DAY FOR TWO WEEKS TO MONITOR HGB, THEN MONTHLY. PATIENT TO RECEIVE PHYSICAL THERAPY WITH WEIGHT BEARING TOLERATED AT THE GROUP HOME. PATIENT DISCHARGED BACK IN STABLE CONDITION. - Discharge Medications Discharge Medications: Home Medication List albuterol sulfate [ProAir HFA] 2 puff INHALATION Q6H 10/04/17 [History] iron-folic acid-mv, min cmb#15 [Hemocyte-Plus] 1 cap PO DAILY 10/04/17 [History] olanzapine [Zyprexa] 2.5 mg PO BID 10/04/17 [History] ropinirole 0.5 mg PO BID PRN 10/04/17 [History] sertraline [Zoloft] 100 mg PO DAILY 10/04/17 [History] tramadol [Ultram] 50 mg PO Q8H PRN 10/04/17 [History] enoxaparin 30 mg SC DAILY #16 ml 10/09/17 [Rx] oxycodone-acetaminophen [Percocet] 1 tab PO Q4H PRN #120 tab 10/09/17 [Rx] Prescriptions: oxycodone-acetaminophen [Percocet] Roby Meeks - Discharge Disposition Discharge Disposition: [facility]
== END 2017-10-09 16:10 | DRG 470 ==
LOC: MED/SURG 03:36
PROVIDERS: ADMIT Internal Medicine; ATTEND Internal Medicine
DX: I25.10 Atherosclerotic heart disease of native coronary artery without angina pectoris; I10 Essential (primary) hypertension; W18.39XA Other fall on same level, initial encounter; Y92.89 Other specified places as the place of occurrence of the external cause; R26.89 Other abnormalities of gait and mobility; E11.65 Type 2 diabetes mellitus with hyperglycemia; K21.9 Gastro-esophageal reflux disease without esophagitis; R48.8 Other symbolic dysfunctions; M25.562 Pain in left knee; M25.532 Pain in left wrist; S72.032A Displaced midcervical fracture of left femur, initial encounter for closed fracture; M25.552 Pain in left hip
CPT/HCPCS: 36415; 36430; 71010; 71045; 72192; 73100; 73501; 73564; 80053; 81001; 83735; 83880; 85014; 85018; 85025; 86850; 86900; 86901; 86922; 87640; 87641; 92523; 93005; 93010; 94640; 94760; 94762; 97110; 97112; 97163; 97167; 97530; 97535; 99100; A4216; A4222; C9113; P9016; J0330; J0690; J1170; J1650; J1815; J2175; J2250; J2271; J2405; J2704; J2710; J3010; J3370; J3490; J7030; J7050; J7060; J7120; J7613; J8499

== ENCOUNTER 2017-11-13 23:19 | Inpatient (IN) ==
--- NOTE | 2017-11-14 00:04 | DR.EXTPAIN ---
HPI Time seen Time seen: 23:40 HPI Comment HPI Comment: ALSO LEFT SHOULDER AND CHEST PAIN. NO HEAD TRAUMA REPORTED. Complaint/Symptoms Chief Complaint Doctor Comments: FELL ON HER LEFT SIDE IN RETIREMENT TONIGHT. 8DAYS AGO. PROSTHETIC LEFT HIP REPLCEMENT DONE. SAME HIP INJURED TONIGHT. Nurses notes reviewed Nurses Notes Review: Yes Source History Provided: Patient and Intermediate Mode of arrival Mode of Arrival: Stretcher Context History of: Hip Operation Associated signs and symptoms Associated Signs and Symptoms: Pain and Swelling PMH PMH Past Medical History: Arthritis, CHF, COPD, Coronary Artery Disease, CVA, Diabetes, GERD and Hypertension Past Surgical History: Yes Surgical History: Cholecystectomy, Hysterectomy and Other Family History Family Medical History: Cancer, [place], Coronary Artery Disease, Sudden Cardiac and Hypertension Social History Do you use any recreational Drugs:: No ROS Review of Systems Constitutional: No Symptoms Reported Eyes: No Symptoms Reported ENTM: No Symptoms Reported Respiratoy: Non-Productive Cough and Short of Breath Cardiovascular: No Symptoms Reported Gastrointestinal/Abdominal: No Symptoms Reported Genitourinary: No Symptoms Reported Neurological: Other (DEMENTIA) Musculoskeletal: No Symptoms Reported and Gout Integumentary: No Symptoms Reported, Change in Color and Change in Hair/Nails Hematologic/Lymphatic: Easy Bleeding and Easy Bruising Endocrine: No Symptoms Reported Psychiatric: Hallucinations Unable to Obtain Due To: Dementia PE Vital Signs Vitals: Temperature 98.3 F Pulse Rate [Right Radial] 87 Pulse Rate 83 Respiratory Rate 20 Blood Pressure [Right Arm] 130/77 Blood Pressure [Left Arm] 117/71 Blood Pressure 132/62 O2 Sat by Pulse Oximetry 96 General Limitations: Other General Appearance: Alert and In No Apparent Distress Head Head Exam: Normal Inspection Eyes Eye exam: PERRL; negative Scleral Icterus and Conjunctival Injection ENT ENT Exam: Normal Oropharynx, Normal External Ear Exam and TM's Normal Bilaterally Neck Neck Exam: Normal Inspection; negative Tenderness Respiratory Respiratory Exam: Normal Lung Sounds Bilat Respiratory Exam: Bilateral: Rhonchi and Lower: Rhonchi Cardiovascular Cardiovascular Exam: Regular Rate and Normal Rhythm Abdominal Exam Abdominal Exam: Normal Bowel Sounds and Soft; negative Tenderness Extremities Extremities Exam: Tenderness Lower Extremities Gait Exam: Not Tested/Not Observed Back Back Exam: Normal Inspection Neurological Neurological Exam: Alert Psychiatric Psychiatric Exam: Normal Affect Skin Skin Exam: Intact Description: Erythematous MDM Differential Diagnosis Differential Diagnosis: Contusion, Fracture and Sprain COURSE Treatment Treatment: SEE ORDERS. Consultation Consultation Comments: DISCUSS PATIENT WITH DR. REDMOND.HE WILL ADMIT PATIENT. Education/Counseling Education/Counseling: Patient Educated On: Diagnosis ROR Labs Reviewed Laboratory Results Reviewed?: Yes Result Diagrams: 11/14/17 05:20 11/14/17 05:20 Laboratory: WBC 9.7 X10^3/uL (3.6-10.0) 11/14/17 05:20 RBC 4.65 X10^6/uL (3.5-5.4) 11/14/17 05:20 Hgb 12.3 g/dL (12.0-16.0) 11/14/17 05:20 Hct 37.7 % (36.0-47.0) 11/14/17 05:20 MCV 81.0 fL (80.0-100.0) 11/14/17 05:20 MCH 26.4 pg (27.0-34.0) L 11/14/17 05:20 MCHC 32.5 g/dL (33.0-35.0) L 11/14/17 05:20 RDW 21.2 % (11.6-16.5) H 11/14/17 05:20 Plt Count 367 X10^3/uL (150.0-450.0) 11/14/17 05:20 Plt Count Comment Adequate (ADEQUATE) 11/14/17 05:20 MPV 7.6 fL (7.4-11.0) 11/14/17 05:20 Neut % (Auto) 66.3 % (42.0-75.0) 11/14/17 05:20 Lymph % (Auto) 24.1 % (21.0-51.0) 11/14/17 05:20 [place] % (Auto) 6.3 % (0.0-13.0) 11/14/17 05:20 Eos % (Auto) 2.6 % (0.9-2.9) 11/14/17 05:20 Baso % (Auto) 0.7 % (0.2-1.0) 11/14/17 05:20 Neut # (Auto) 6.5 x10^3/uL (2.2-4.8) H 11/14/17 05:20 Lymph # (Auto) 2.3 X10^3/uL (1.3-2.9) 11/14/17 05:20 [place] # (Auto) 0.6 x10^3/uL (0.3-0.8) 11/14/17 05:20 Eos # (Auto) 0.3 x10^3/uL (0.0-0.2) H 11/14/17 05:20 Baso # (Auto) 0.1 X10^3/uL (0.0-0.1) 11/14/17 05:20 Absolute Nucleated RBC 0.0 /100WBC 11/14/17 05:20 Plt Morphology Comment Normal (NORMAL) 11/14/17 05:20 RBC Morphology Abnormal (NORMAL) A 11/14/17 05:20 Anisocytosis 1+ A 11/14/17 05:20 Sodium 144 mmol/L (136-145) 11/14/17 05:20 Corrected Sodium 145 mmol/L (136-145) 11/14/17 05:20 Potassium 3.8 mmol/L (3.5-5.1) 11/14/17 05:20 Chloride 109 mmol/L (98-107) H 11/14/17 05:20 Carbon Dioxide 27.4 mmol/L (21-32) 11/14/17 05:20 BUN 16 mg/dL (7-18) 11/14/17 05:20 Creatinine 0.98 mg/dL (0.55-1.02) 11/14/17 05:20 Est GFR (MDRD) Af Amer > 60 (>60) 11/14/17 05:20 Est GFR (MDRD) Non-Af 59 (>60) 11/14/17 05:20 Glucose 154 mg/dL (65-99) H 11/14/17 05:20 POC Glucose (mg/dL) 134 mg/dL (65-99) H 11/14/17 05:47 Calcium 9.0 mg/dL (8.5-10.1) 11/14/17 05:20 Corrected Calcium 9.9 mg/dL (8.5-10.1) 11/14/17 05:20 Total Bilirubin 0.20 mg/dL (0.2-1.0) 11/14/17 05:20 AST 26 Units/L (15-37) 11/14/17 05:20 ALT 22 Units/L (12-78) 11/14/17 05:20 Alkaline Phosphatase 102 Units/L (46-116) 11/14/17 05:20 Creatine Kinase 19 Units/L (26-192) L 11/14/17 01:50 CK-MB (CK-2) 1.0 ng/mL (0-4.0) 11/14/17 01:50 CK/CKMB % Calc 5.3 % (<4) 11/14/17 01:50 Troponin I < 0.02 ng/mL (0-1.5) 11/14/17 01:50 Total Protein 6.8 g/dL (6.4-8.2) 11/14/17 05:20 Albumin 2.9 g/dL (3.4-5.0) L 11/14/17 05:20 Globulin 3.9 g/dL (2.5-4.5) 11/14/17 05:20 Albumin/Globulin Ratio 0.7 Ratio (1.1-2.1) L 11/14/17 05:20 Specimen Type Catherized urine 11/14/17 05:16 Urine Color Pale yellow (YELLOW) 11/14/17 05:16 Urine Appearance Clear (CLEAR) 11/14/17 05:16 Urine pH 7.0 (5.0 - 8.0) 11/14/17 05:16 Ur Specific [place] 1.010 (1.000-1.030) 11/14/17 05:16 Urine Protein Negative (NEGATIVE) 11/14/17 05:16 Urine Glucose (UA) 4+ (NEGATIVE) 11/14/17 05:16 Urine Ketones Negative (NEGATIVE) 11/14/17 05:16 Urine Occult Blood Negative (NEGATIVE) 11/14/17 05:16 Urine Nitrite Negative (NEGATIVE) 11/14/17 05:16 Urine Bilirubin Negative (NEGATIVE) 11/14/17 05:16 Urine Urobilinogen Normal (NORMAL) 11/14/17 05:16 Ur Leukocyte Esterase 2+ (NEGATIVE) 11/14/17 05:16 Urine RBC None seen /HPF (NONE SEEN) 11/14/17 05:16 Urine WBC 10-20 /HPF (NONE SEEN) 11/14/17 05:16 Ur Squamous Epith Cells Rare /HPF (NEGATIVE) 11/14/17 05:16 Urine Bacteria Negative /HPF (NEGATIVE) 11/14/17 05:16 Urine Yeast Moderate /HPF (NEGATIVE) 11/14/17 05:16 Ur Culture Indicated? Yes/culture set up 11/14/17 05:16 XRAY XRAY Interpreted by: Radiologist XRAY Findings: REPORT NOTED. EKG Hana: LAD Rhythm: NSR and PACs Block: None Hypertrophy: LAE ST: Nonsp Diagnosis Discharge Problem: Closed hip fracture
--- NOTE | 2017-11-14 01:05 | RAD ---
Left hip two views Indication: Pain after fall Findings: There is cortical lucency at the distal stem of the left femur arthroplasty compatible with periprostatic fracture. This appears acute. Right hip joint degenerative change SI joint DJD seen. S pine DJD noted. Gas obscures the sacrum Impression: Periprostatic left hip fracture around the femoral stem. Reported By:
--- NOTE | 2017-11-14 01:05 | RAD ---
Chest AP portable Indication: Preoperative radiograph. Hysterectomy. COPD. Comparison: 10/04/2017 Findings: There is COPD change. Heart size is normal. No consolidation seen. Impression: COPD change without other acute chest process Reported By:
--- NOTE | 2017-11-14 01:07 | RAD ---
Left shoulder two views Indication: Pain after fall Findings: Acromioclavicular and glenohumeral joints are intact. There is no cortical lucency or malal ignment. Impression: No acute left shoulder fracture. Reported By:
[2017-11-14 03:31] VITALS: BMI 25.9
[2017-11-14 03:40] LABS: BASOPHILS % (AUTO) 0.4 % (0.2-1.0); EOSINOPHILS # (AUTO) 0.2 x10^3/uL (0.0-0.2); EOSINOPHILS % (AUTO) 2.3 % (0.9-2.9); HEMOGLOBIN 12.1 g/dL (12.0-16.0); LYMPHOCYTES # (AUTO) 2.2 X10^3/uL (1.3-2.9); LYMPHOCYTES % (AUTO) 21.3 % (21.0-51.0); MEAN CORPUSCULAR HGB CONC 31.9 g/dL (33.0-35.0); MEAN CORPUSCULAR VOLUME 81.4 fL (80.0-100.0); MEAN PLATELET VOLUME 8.2 fL (7.4-11.0); MONOCYTES # (AUTO) 0.6 x10^3/uL (0.3-0.8); MONOCYTES % (AUTO) 5.7 % (0.0-13.0); NEUTROPHILS # (AUTO) 7.1 x10^3/uL (2.2-4.8); NEUTROPHILS % (AUTO) 70.3 % (42.0-75.0); PLATELET COUNT 413 X10^3/uL (150.0-450.0); RED BLOOD COUNT 4.67 X10^6/uL (3.5-5.4); RED CELL DISTRIBUTION WIDTH 21.7 % (11.6-16.5); WHITE BLOOD COUNT 10.2 X10^3/uL (3.6-10.0)
[2017-11-14 03:43] LABS: ANISOCYTOSIS 1+; PLATELET MORPHOLOGY COMMENT NORMAL (NORMAL)
[2017-11-14 03:52] LABS: BLOOD UREA NITROGEN 17 mg/dL (7-18); CARBON DIOXIDE 29.6 mmol/L (21-32); CHLORIDE 108 mmol/L (98-107); COR NA(FOR HYPERGLY) 146 mmol/L (136-145); CREATININE 1.15 mg/dL (0.55-1.02); SODIUM 143 mmol/L (136-145); TROPONIN I < 0.02 ng/mL (0-1.5); eGFR NON BLACK RACES 49 (>60)
[2017-11-14 03:57] LABS: ALANINE AMINOTRANSFERASE 23 Units/L (12-78); ALBUMIN 3.1 g/dL (3.4-5.0); ALKALINE PHOSPHATASE 115 Units/L (46-116); ASPARTATE AMINO TRANSFERASE 24 Units/L (15-37); CKMB % 5.3 % (<4); COR CA(FOR HYPOALB) 9.7 mg/dL (8.5-10.1); CREATINE KINASE 19 Units/L (26-192)
[2017-11-14 05:36] LABS: BASOPHILS # (AUTO) 0.1 X10^3/uL (0.0-0.1); BASOPHILS % (AUTO) 0.7 % (0.2-1.0); EOSINOPHILS # (AUTO) 0.3 x10^3/uL (0.0-0.2); EOSINOPHILS % (AUTO) 2.6 % (0.9-2.9); HEMATOCRIT 37.7 % (36.0-47.0); HEMOGLOBIN 12.3 g/dL (12.0-16.0); LYMPHOCYTES # (AUTO) 2.3 X10^3/uL (1.3-2.9); LYMPHOCYTES % (AUTO) 24.1 % (21.0-51.0); MEAN CORPUSCULAR HEMOGLOBIN 26.4 pg (27.0-34.0); MEAN CORPUSCULAR HGB CONC 32.5 g/dL (33.0-35.0); MEAN PLATELET VOLUME 7.6 fL (7.4-11.0); MONOCYTES # (AUTO) 0.6 x10^3/uL (0.3-0.8); MONOCYTES % (AUTO) 6.3 % (0.0-13.0); NEUTROPHILS # (AUTO) 6.5 x10^3/uL (2.2-4.8); NEUTROPHILS % (AUTO) 66.3 % (42.0-75.0); PLATELET COUNT 367 X10^3/uL (150.0-450.0); RED BLOOD COUNT 4.65 X10^6/uL (3.5-5.4); RED CELL DISTRIBUTION WIDTH 21.2 % (11.6-16.5); WHITE BLOOD COUNT 9.7 X10^3/uL (3.6-10.0)
[2017-11-14 05:37] LABS: ANISOCYTOSIS 1+; PLATELET MORPHOLOGY COMMENT NORMAL (NORMAL)
[2017-11-14 05:40] LABS: BILIRUBIN,URINE NEGATIVE (NEGATIVE); BLOOD/HEMOGLOBIN,URINE NEGATIVE (NEGATIVE); GLUCOSE, URINE 4+ (NEGATIVE); KETONES,URINE NEGATIVE (NEGATIVE); LEUKOCYTE ESTERASE ,URINE 2+ (NEGATIVE); NITRITES,URINE NEGATIVE (NEGATIVE); PROTEIN,URINE NEGATIVE (NEGATIVE); UROBILINOGEN,URINE NORMAL (NORMAL)
[2017-11-14 05:49] LABS: ALANINE AMINOTRANSFERASE 22 Units/L (12-78); ALBUMIN 2.9 g/dL (3.4-5.0); ALKALINE PHOSPHATASE 102 Units/L (46-116); ASPARTATE AMINO TRANSFERASE 26 Units/L (15-37); BLOOD UREA NITROGEN 16 mg/dL (7-18); CARBON DIOXIDE 27.4 mmol/L (21-32); CHLORIDE 109 mmol/L (98-107); COR CA(FOR HYPOALB) 9.9 mg/dL (8.5-10.1); COR NA(FOR HYPERGLY) 145 mmol/L (136-145); CREATININE 0.98 mg/dL (0.55-1.02); SODIUM 144 mmol/L (136-145); TOTAL PROTEIN 6.8 g/dL (6.4-8.2); eGFR NON BLACK RACES 59 (>60)
[2017-11-14 05:50] LABS: APPEARANCE,URINE CLEAR (CLEAR); BACTERIA,URINE NEGATIVE /HPF (NEGATIVE); COLOR,URINE PALE YELLOW (YELLOW); RBC,URINE NONE SEEN /HPF (NONE SEEN); SQUAMOUS EPITHELIAL CELL,UR RARE /HPF (NEGATIVE)
[2017-11-14 05:51] LABS: YEAST,URINE MODERATE /HPF (NEGATIVE)
[2017-11-14] MEDS: NS 1000 ML 1,000 ML IV SCH ×2 (06:09→17:45)
[2017-11-14 12:25] LABS: BILIRUBIN,URINE NEGATIVE (NEGATIVE); BLOOD/HEMOGLOBIN,URINE 1+ (NEGATIVE); GLUCOSE, URINE 4+ (NEGATIVE); KETONES,URINE NEGATIVE (NEGATIVE); LEUKOCYTE ESTERASE ,URINE 3+ (NEGATIVE); NITRITES,URINE NEGATIVE (NEGATIVE); PROTEIN,URINE 1+ (NEGATIVE); UROBILINOGEN,URINE NORMAL (NORMAL)
[2017-11-14 12:49] LABS: APPEARANCE,URINE SLIGHTLY HAZY (CLEAR); COLOR,URINE YELLOW (YELLOW)
[2017-11-14 12:50] LABS: BACTERIA,URINE TRACE /HPF (NEGATIVE); RBC,URINE 0-2 /HPF (NONE SEEN); SQUAMOUS EPITHELIAL CELL,UR RARE /HPF (NEGATIVE)
[2017-11-14 12:52] LABS: AMORPHOUS SEDIMENT,UR 1+ /HPF (NEGATIVE); YEAST,URINE NUMEROUS /HPF (NEGATIVE)
--- NOTE | 2017-11-14 15:18 | DR.H&P ---
H&P - History & Physical for Day of: H&P Date: 11/14/17 - Chief Complaint Chief Complaint: FALL, LEFT HIP PAIN - History of Present Illness History of Present Illness: 72 WF ER ADMISSION AFTER PRESENTING TO THE ER FROM [facility] WITH CO FELL ON HER LEFT SIDE IN CUSTODIAL TONIGHT WITH XRAY REVEALING LEFT HIP FRATURE. PT RECENTLY HAD LEFT HIP FRACTURE REPAIR PER DR [place], [place] BELOW PRIOR INJURY. PT HAS RIGHT WRIST IN CAST FROM PREVIOUS FALL. PT HAS PMH OF COPD, CHF, CAD, DM, OA, HTN, GERD, DEMENTIA. PT ADMITTED FOR PAIN CONTROL, ORTHO CONSULTATION - Past Medical History Past Medical History: Coronary Artery Disease, Hypertension, Diabetes, CVA, COPD , GERD, Arthritis, CHF - Past Surgical History Surgical History: Cholecystectomy, Hysterectomy, Other - Family History Family Medical History: Cancer, [place], Coronary Artery Disease, Sudden Cardiac , Hypertension - Social History Does patient currently use any type of tobacco product: No Have you used tobacco products in the last 12 months: No Type of Tobacco Use: None Alcohol Use: None Drug Use: None - Medications Home Medications: azithromycin Allergy (Verified 11/13/17 23:23) ciprofloxacin Allergy (Verified 11/13/17 23:23) codeine Allergy (Verified 11/13/17 23:23) Corticosteroids (Glucocorticoids) Allergy (Verified 11/13/17 23:23) levofloxacin Allergy (Verified 11/13/17 23:23) morphine Allergy (Verified 11/13/17 23:23) niacin Allergy (Verified 11/13/17 23:23) promethazine Allergy (Verified 11/13/17 23:23) topiramate Allergy (Verified 11/13/17 23:23) CONTINUE taking the following medications dicyclomine 1 tab PO Q6H PRN 11/14/17 [History] fluticasone 2 spray INTRANASAL DAILY 11/14/17 [History] lorazepam 1 tab PO HS 11/14/17 [History] losartan 25 mg PO QDAY 11/14/17 [History] oxycodone-acetaminophen [Percocet] 1 tab PO TID 11/14/17 [History] polyethylene glycol 3350 [Miralax] 17 g PO QDAY 11/14/17 [History] simvastatin 1 tab PO HS 11/14/17 [History] - Review of Systems Constitutional: Weakness Eyes: No Symptoms Reported ENT: No Symptoms Reported Respiratory: Wheezing Cardiovascular: No Symptoms Reported, Edema Gastrointestinal: Nausea Genitourinary: No Symptoms Reported Musculoskeletal: Arm Pain, Back Pain, Leg Pain Skin: Bruising Neurological: Weakness, Confusion (EPISODES OF CONFUSION, HX OF VASCULAR DEMENTIA) - Physical Exam Vital Signs: Temperature 99.5 F Pulse Rate [Right Radial] 78 Pulse Rate 83 Respiratory Rate 18 Blood Pressure [Right Arm] 148/67 Blood Pressure [Left Arm] 117/71 Blood Pressure 132/62 O2 Sat by Pulse Oximetry 93 Oriented: Person Eyes: Normal Ear: Normal Nose: Normal Throat: Normal Respiratory: Diminished Throughout Cardiovascular: Normal, Edema (MILD BILATERAL EDEMA) : Normal Auscultation: Bowel Sounds: Normal Palpation: Normal Tenderness: Normal Skin: Decreased [place]urg[place], Bruising Musculoskeletal: Right (WRIST WITH CAST), Left, Hip, Swelling, Tender, Sensory Deficit, Instability Psychiatric: Depression Affect: Depressed Speech Pattern: Clear, Delayed - Assessment/Plan (1) Closed hip fracture Qualifiers: Encounter type: initial encounter Laterality: left Qualified Code(s): S72.002A - Fracture of unspecified part of neck of left femur, initial encounter for closed fracture Status: Acute Plan: ADMIT, NPO. PAIN CONTROL, ORTHO CONSULT. EKG AND CXR ON ADMISSION. VERIFY HOME MEDS, BS CONTROL. MONITORING BP, I & OS, SSI. RESP CONSULT (2) COPD (chronic obstructive pulmonary disease) Status: Chronic (3) Diabetes mellitus Status: Chronic (4) GERD (gastroesophageal reflux disease) Status: Chronic (5) Hypertension Status: Chronic (6) Anxiety Status: Chronic - Allergies Allergies/Adverse Reactions: Allergies Allergy/AdvReac Type Severity Reaction Status Date / Time azithromycin Allergy Verified 11/13/17 23:23 ciprofloxacin Allergy Verified 11/13/17 23:23 codeine Allergy Verified 11/13/17 23:23 Corticosteroids Allergy Verified 11/13/17 23:23 (Glucocorticoids) levofloxacin Allergy Verified 11/13/17 23:23 morphine Allergy Verified 11/13/17 23:23 niacin Allergy Verified 11/13/17 23:23 promethazine Allergy Verified 11/13/17 23:23 topiramate Allergy Verified 11/13/17 23:23
[2017-11-14] MEDS ORDERED: PROVENTIL NEB TX 0.083% 2.5MG/ 3ML NEB PRN (15:56)
[2017-11-14] MEDS ORDERED: DEMEROL INJ ONE (16:01)
[2017-11-14] MEDS: DEMEROL INJ IVP PRN ×3 (16:04→22:30)
[2017-11-14] MEDS: LOVENOX INJ 30 MG SYR SC SCH (21:38)
[2017-11-14] MEDS: VISTARIL PO PRN (23:30)
[2017-11-15 05:17] LABS: BASOPHILS # (AUTO) 0.1 X10^3/uL (0.0-0.1); EOSINOPHILS # (AUTO) 0.2 x10^3/uL (0.0-0.2); EOSINOPHILS % (AUTO) 3.2 % (0.9-2.9); HEMATOCRIT 34.6 % (36.0-47.0); HEMOGLOBIN 11.2 g/dL (12.0-16.0); LYMPHOCYTES # (AUTO) 2.5 X10^3/uL (1.3-2.9); LYMPHOCYTES % (AUTO) 32.5 % (21.0-51.0); MEAN CORPUSCULAR HEMOGLOBIN 26.4 pg (27.0-34.0); MEAN CORPUSCULAR HGB CONC 32.3 g/dL (33.0-35.0); MEAN CORPUSCULAR VOLUME 81.8 fL (80.0-100.0); MEAN PLATELET VOLUME 7.8 fL (7.4-11.0); MONOCYTES # (AUTO) 0.5 x10^3/uL (0.3-0.8); MONOCYTES % (AUTO) 6.1 % (0.0-13.0); NEUTROPHILS # (AUTO) 4.4 x10^3/uL (2.2-4.8); NEUTROPHILS % (AUTO) 57.2 % (42.0-75.0); PLATELET COUNT 332 X10^3/uL (150.0-450.0); RED BLOOD COUNT 4.23 X10^6/uL (3.5-5.4); RED CELL DISTRIBUTION WIDTH 21.4 % (11.6-16.5); WHITE BLOOD COUNT 7.8 X10^3/uL (3.6-10.0)
[2017-11-15 05:26] LABS: ANISOCYTOSIS 1+; PLATELET MORPHOLOGY COMMENT NORMAL (NORMAL)
[2017-11-15] MEDS: NS 1000 ML 1,000 ML IV SCH (05:27)
[2017-11-15 05:41] LABS: ALANINE AMINOTRANSFERASE 19 Units/L (12-78); ALBUMIN 2.6 g/dL (3.4-5.0); ALKALINE PHOSPHATASE 100 Units/L (46-116); ASPARTATE AMINO TRANSFERASE 23 Units/L (15-37); BLOOD UREA NITROGEN 9 mg/dL (7-18); CALCIUM 8.8 mg/dL (8.5-10.1); CARBON DIOXIDE 26.1 mmol/L (21-32); CHLORIDE 109 mmol/L (98-107); COR CA(FOR HYPOALB) 9.9 mg/dL (8.5-10.1); COR NA(FOR HYPERGLY) 144 mmol/L (136-145); CREATININE 0.73 mg/dL (0.55-1.02); SODIUM 143 mmol/L (136-145); TOTAL PROTEIN 6.1 g/dL (6.4-8.2); eGFR NON BLACK RACES > 60 (>60)
[2017-11-15] MEDS: DEMEROL INJ IVP PRN ×3 (05:43→20:00)
[2017-11-15] MEDS: LOVENOX INJ 30 MG SYR SC SCH ×2 (09:18→21:08)
[2017-11-15] MEDS: VISTARIL PO PRN (09:25)
[2017-11-15] MEDS ORDERED: ZOLOFT PO ONE (14:45)
[2017-11-15] MEDS: MAALOX or MYLANTA PO PRN ×2 (14:49→20:01)
[2017-11-15] MEDS: GLUCOPHAGE XR PO SCH ×2 (14:49→21:05)
[2017-11-15] MEDS: MIRALAX POWDER (1 DOSE 17 G) PO SCH (14:50)
[2017-11-15] MEDS: ZOLOFT PO SCH (14:50)
[2017-11-15] MEDS: PERCOCET TAB 5/325 MG PO SCH ×2 (14:50→21:05)
[2017-11-15] MEDS: REQUIP PO SCH (21:05)
[2017-11-16] MEDS: MAALOX or MYLANTA PO PRN ×2 (03:00→19:57)
[2017-11-16] MEDS: DEMEROL INJ IVP PRN ×2 (03:00→08:17)
[2017-11-16] MEDS: NS 1000 ML 1,000 ML IV SCH ×3 (04:00→18:11)
[2017-11-16 05:06] LABS: BASOPHILS # (AUTO) 0.1 X10^3/uL (0.0-0.1); EOSINOPHILS # (AUTO) 0.3 x10^3/uL (0.0-0.2); EOSINOPHILS % (AUTO) 4.1 % (0.9-2.9); HEMATOCRIT 33.7 % (36.0-47.0); HEMOGLOBIN 10.9 g/dL (12.0-16.0); LYMPHOCYTES # (AUTO) 2.1 X10^3/uL (1.3-2.9); LYMPHOCYTES % (AUTO) 30.5 % (21.0-51.0); MEAN CORPUSCULAR HEMOGLOBIN 26.5 pg (27.0-34.0); MEAN CORPUSCULAR HGB CONC 32.5 g/dL (33.0-35.0); MEAN CORPUSCULAR VOLUME 81.6 fL (80.0-100.0); MEAN PLATELET VOLUME 7.8 fL (7.4-11.0); MONOCYTES # (AUTO) 0.5 x10^3/uL (0.3-0.8); MONOCYTES % (AUTO) 6.6 % (0.0-13.0); NEUTROPHILS % (AUTO) 57.8 % (42.0-75.0); PLATELET COUNT 331 X10^3/uL (150.0-450.0); RED BLOOD COUNT 4.13 X10^6/uL (3.5-5.4); RED CELL DISTRIBUTION WIDTH 21.1 % (11.6-16.5)
[2017-11-16 05:12] LABS: ALANINE AMINOTRANSFERASE 20 Units/L (12-78); ALBUMIN 2.4 g/dL (3.4-5.0); ALKALINE PHOSPHATASE 102 Units/L (46-116); ANISOCYTOSIS 1+; ASPARTATE AMINO TRANSFERASE 23 Units/L (15-37); BLOOD UREA NITROGEN 8 mg/dL (7-18); CALCIUM 8.7 mg/dL (8.5-10.1); CARBON DIOXIDE 28.2 mmol/L (21-32); CHLORIDE 109 mmol/L (98-107); COR NA(FOR HYPERGLY) 144 mmol/L (136-145); CREATININE 0.81 mg/dL (0.55-1.02); MAGNESIUM 2.1 mg/dL (1.7-2.9); PLATELET MORPHOLOGY COMMENT NORMAL (NORMAL); SODIUM 143 mmol/L (136-145); eGFR NON BLACK RACES > 60 (>60)
[2017-11-16] MEDS: PERCOCET TAB 5/325 MG PO SCH ×3 (06:01→22:00)
[2017-11-16] MEDS ORDERED: ZOLOFT PO ONE (08:12)
[2017-11-16] MEDS: MIRALAX POWDER (1 DOSE 17 G) PO SCH (08:18)
[2017-11-16] MEDS: REQUIP PO SCH ×3 (08:18→20:59)
[2017-11-16] MEDS: GLUCOPHAGE XR PO SCH ×2 (08:18→20:59)
[2017-11-16] MEDS: ZOLOFT PO SCH (08:18)
[2017-11-16] MEDS ORDERED: PHARMACY CONSULT - DOSE _____ XX SCH (14:00)
[2017-11-16] MEDS: AMBIEN PO PRN (20:59)
[2017-11-17] MEDS: PERCOCET TAB 5/325 MG PO SCH ×3 (05:21→20:59)
[2017-11-17 05:27] LABS: BASOPHILS # (AUTO) 0.1 X10^3/uL (0.0-0.1); BASOPHILS % (AUTO) 1.1 % (0.2-1.0); EOSINOPHILS # (AUTO) 0.3 x10^3/uL (0.0-0.2); EOSINOPHILS % (AUTO) 4.2 % (0.9-2.9); HEMOGLOBIN 11.7 g/dL (12.0-16.0); LYMPHOCYTES # (AUTO) 2.3 X10^3/uL (1.3-2.9); LYMPHOCYTES % (AUTO) 29.3 % (21.0-51.0); MEAN CORPUSCULAR HEMOGLOBIN 26.7 pg (27.0-34.0); MEAN CORPUSCULAR HGB CONC 32.6 g/dL (33.0-35.0); MEAN CORPUSCULAR VOLUME 81.8 fL (80.0-100.0); MEAN PLATELET VOLUME 7.4 fL (7.4-11.0); MONOCYTES # (AUTO) 0.4 x10^3/uL (0.3-0.8); MONOCYTES % (AUTO) 5.3 % (0.0-13.0); NEUTROPHILS # (AUTO) 4.7 x10^3/uL (2.2-4.8); NEUTROPHILS % (AUTO) 60.1 % (42.0-75.0); PLATELET COUNT 359 X10^3/uL (150.0-450.0); RED CELL DISTRIBUTION WIDTH 20.8 % (11.6-16.5); WHITE BLOOD COUNT 7.9 X10^3/uL (3.6-10.0)
[2017-11-17 05:42] LABS: ALANINE AMINOTRANSFERASE 21 Units/L (12-78); ALBUMIN 2.8 g/dL (3.4-5.0); ALKALINE PHOSPHATASE 111 Units/L (46-116); ASPARTATE AMINO TRANSFERASE 25 Units/L (15-37); BLOOD UREA NITROGEN 7 mg/dL (7-18); CARBON DIOXIDE 28.3 mmol/L (21-32); CHLORIDE 106 mmol/L (98-107); CREATININE 0.67 mg/dL (0.55-1.02); SODIUM 141 mmol/L (136-145); TOTAL PROTEIN 6.8 g/dL (6.4-8.2); eGFR NON BLACK RACES > 60 (>60)
[2017-11-17 05:52] LABS: ANISOCYTOSIS 1+; PLATELET MORPHOLOGY COMMENT NORMAL (NORMAL)
[2017-11-17] MEDS: DEMEROL INJ IVP PRN ×3 (06:00→11:46)
[2017-11-17] MEDS ORDERED: ZOLOFT PO ONE (11:42)
[2017-11-17] MEDS: VISTARIL PO PRN (11:45)
[2017-11-17] MEDS: REQUIP PO SCH ×2 (11:45→20:59)
[2017-11-17] MEDS: ZOLOFT PO SCH (11:45)
[2017-11-17] MEDS: GLUCOPHAGE XR PO SCH ×2 (11:45→20:59)
[2017-11-17] MEDS: MIRALAX POWDER (1 DOSE 17 G) PO SCH (11:46)
[2017-11-17] MEDS: NS 1000 ML 1,000 ML IV SCH ×3 (11:47→22:00)
[2017-11-17] MEDS: AMBIEN PO PRN (21:00)
--- NOTE | 2017-11-17 21:10 | PCM.PROG ---
Progress Note - Progress Note for Day of Date of Exam: 11/17/17 - Subjective Subjective: WAS ADMITTED FOR A LEFT HIP FRACTION AFTER FALLING [facility]. PATIENT RECENTLY HAD A LEFT HIP FRACTER REPAIR. NEW FRACTURE IS BELOW THE PRIOR INJURY. TODAY, SHE IS DISORIENTED, LYING IN BED ON MORNING ROUNDS. SHE IS MOANING AND COMPLAINING OF LEFT HIP PAIN. SHE IS NOTED TO BE IN BUCKS TRACTION AT THIS TIME. ON EXAMINATION, HEART IS REGULAR IN RATE AND RHYTHM. BILATERAL LUNGS ARE DIMINISHED THROUGHOUT. ABDOMEN IS ROUND, SOFT, AND NON-TENDER WITH NORMAL BOWEL SOUNDS NOTED IN ALL QUADRANTS. LEFT HIP AND LEG NOTED WITH SCATTERED BRUISING. HER VITALS THIS MORNING ARE 98.6-70-18-96%-140/ 60. SHE IS HEMODYNAMICALLY STABLE. PLANS TO TAKE PATIENT FOR ORIF THIS MORNING. WE ARE IN AGREEMENT WITH PLAN. OTHERWISE, WE WILL CONTINUE TO MONITOR LABS AND PAIN CONTROL. - Past Medical Family Social History Past Med/Fam/Surg Hx: No changes since H&P Allergies: Allergies azithromycin Allergy (Verified 11/13/17 23:23) ciprofloxacin Allergy (Verified 11/13/17 23:23) codeine Allergy (Verified 11/13/17 23:23) Corticosteroids (Glucocorticoids) Allergy (Verified 11/13/17 23:23) levofloxacin Allergy (Verified 11/13/17 23:23) morphine Allergy (Verified 11/13/17 23:23) niacin Allergy (Verified 11/13/17 23:23) promethazine Allergy (Verified 11/13/17 23:23) topiramate Allergy (Verified 11/13/17 23:23) - Review of Systems ROS: No change since H&P - Vital Signs and I&O's Vital Signs: Temperature 98.5 F Pulse Rate [Right Radial] 71 Pulse Rate 69 Respiratory Rate 18 Blood Pressure [Right Arm] 135/78 Blood Pressure [Left Arm] 117/71 Blood Pressure 132/62 O2 Sat by Pulse Oximetry 2 Intake and Output: Intake & Output 11/15/17 11/16/17 11/17/17 11/18/17 11:59 11:59 11:59 11:59 Intake Total 2140 / 2140 1999 / 1999 1979 / 1980 840 / 840 Output Total 1350 / 1350 1800 / 1800 1600 / 1600 600 / 600 Balance 790 / 790 200 / 200 380 / 380 240 / 240 - Physical Exam Oriented: Person Eyes: Normal Ear: Normal Nose: Normal Throat: Normal Cardiovascular: Normal, Edema (MILD BILATERAL EDEMA) : Normal Auscultation: Bowel Sounds: Normal Palpation: Normal Tenderness: Normal Skin: Decreased Turgur, Bruising Musculoskeletal: Right (WRIST WITH CAST), Left, Hip, Swelling, Tender, Sensory Deficit, Instability Psychiatric: Depression Affect: Depressed Speech Pattern: Clear, Excessive - Laboratory and Diagnostics Result Diagrams: 11/17/17 05:15 11/17/17 05:15 Labs: 11/14/17 05:16 Urine,Catheterized Urine Culture - Final Laboratory WBC 7.9 X10^3/uL (3.6-10.0) 11/17/17 05:15 RBC 4.40 X10^6/uL (3.5-5.4) 11/17/17 05:15 Hgb 11.7 g/dL (12.0-16.0) L 11/17/17 05:15 Hct 36.0 % (36.0-47.0) 11/17/17 05:15 MCV 81.8 fL (80.0-100.0) 11/17/17 05:15 MCH 26.7 pg (27.0-34.0) L 11/17/17 05:15 MCHC 32.6 g/dL (33.0-35.0) L 11/17/17 05:15 RDW 20.8 % (11.6-16.5) H 11/17/17 05:15 Plt Count 359 X10^3/uL (150.0-450.0) 11/17/17 05:15 Plt Count Comment Adequate (ADEQUATE) 11/17/17 05:15 MPV 7.4 fL (7.4-11.0) 11/17/17 05:15 Neut % (Auto) 60.1 % (42.0-75.0) 11/17/17 05:15 Lymph % (Auto) 29.3 % (21.0-51.0) 11/17/17 05:15 [place] % (Auto) 5.3 % (0.0-13.0) 11/17/17 05:15 Eos % (Auto) 4.2 % (0.9-2.9) H 11/17/17 05:15 Baso % (Auto) 1.1 % (0.2-1.0) H 11/17/17 05:15 Neut # (Auto) 4.7 x10^3/uL (2.2-4.8) 11/17/17 05:15 Lymph # (Auto) 2.3 X10^3/uL (1.3-2.9) 11/17/17 05:15 [place] # (Auto) 0.4 x10^3/uL (0.3-0.8) 11/17/17 05:15 Eos # (Auto) 0.3 x10^3/uL (0.0-0.2) H 11/17/17 05:15 Baso # (Auto) 0.1 X10^3/uL (0.0-0.1) 11/17/17 05:15 Absolute Nucleated RBC 0.0 /100WBC 11/17/17 05:15 Plt Morphology Comment Normal (NORMAL) 11/17/17 05:15 RBC Morphology Abnormal (NORMAL) A 11/17/17 05:15 Anisocytosis 1+ A 11/17/17 05:15 Sodium 141 mmol/L (136-145) 11/17/17 05:15 Corrected Sodium TNP 11/17/17 05:15 Potassium 4.4 mmol/L (3.5-5.1) 11/17/17 05:15 Chloride 106 mmol/L (98-107) 11/17/17 05:15 Carbon Dioxide 28.3 mmol/L (21-32) 11/17/17 05:15 BUN 7 mg/dL (7-18) 11/17/17 05:15 Creatinine 0.67 mg/dL (0.55-1.02) 11/17/17 05:15 Est GFR (MDRD) Af Amer > 60 (>60) 11/17/17 05:15 Est GFR (MDRD) Non-Af > 60 (>60) 11/17/17 05:15 Glucose 107 mg/dL (65-99) H 11/17/17 05:15 POC Glucose (mg/dL) 106 mg/dL (65-99) H 11/17/17 20:00 Calcium 9.0 mg/dL (8.5-10.1) 11/17/17 05:15 Corrected Calcium 10.0 mg/dL (8.5-10.1) 11/17/17 05:15 Magnesium 2.1 mg/dL (1.7-2.9) 11/16/17 04:35 Total Bilirubin 0.30 mg/dL (0.2-1.0) 11/17/17 05:15 AST 25 Units/L (15-37) 11/17/17 05:15 ALT 21 Units/L (12-78) 11/17/17 05:15 Alkaline Phosphatase 111 Units/L (46-116) 11/17/17 05:15 Creatine Kinase 19 Units/L (26-192) L 11/14/17 01:50 CK-MB (CK-2) 1.0 ng/mL (0-4.0) 11/14/17 01:50 CK/CKMB % Calc 5.3 % (<4) 11/14/17 01:50 Troponin I < 0.02 ng/mL (0-1.5) 11/14/17 01:50 Total Protein 6.8 g/dL (6.4-8.2) 11/17/17 05:15 Albumin 2.8 g/dL (3.4-5.0) L 11/17/17 05:15 Globulin 4.0 g/dL (2.5-4.5) 11/17/17 05:15 Albumin/Globulin Ratio 0.7 Ratio (1.1-2.1) L 11/17/17 05:15 Specimen Type Catherized urine 11/14/17 12:10 Urine Color Yellow (YELLOW) 11/14/17 12:10 Urine Appearance Slightly hazy (CLEAR) 11/14/17 12:10 Urine pH 7.0 (5.0 - 8.0) 11/14/17 12:[address] 1.010 (1.000-1.030) 11/14/17 12:10 Urine Protein 1+ (NEGATIVE) 11/14/17 12:10 Urine Glucose (UA) 4+ (NEGATIVE) 11/14/17 12:10 Urine Ketones Negative (NEGATIVE) 11/14/17 12:10 Urine Occult Blood 1+ (NEGATIVE) 11/14/17 12:10 Urine Nitrite Negative (NEGATIVE) 11/14/17 12:10 Urine Bilirubin Negative (NEGATIVE) 11/14/17 12:10 Urine Urobilinogen Normal (NORMAL) 11/14/17 12:10 Ur Leukocyte Esterase 3+ (NEGATIVE) 11/14/17 12:10 Urine RBC 0-2 /HPF (NONE SEEN) 11/14/17 12:10 Urine WBC 20-30 /HPF (NONE SEEN) 11/14/17 12:10 Ur Squamous Epith Cells Rare /HPF (NEGATIVE) 11/14/17 12:10 Amorphous Sediment 1+ /HPF (NEGATIVE) 11/14/17 12:10 Urine Bacteria Trace /HPF (NEGATIVE) 11/14/17 12:10 Urine Yeast Numerous /HPF (NEGATIVE) 11/14/17 12:10 Ur Culture Indicated? Yes/culture set up 11/14/17 12:10 Blood Type O POSITIVE 11/14/17 13:08 Antibody Screen Negative 11/14/17 13:08 Crossmatch See Detail 11/14/17 13:08 - Plan (1) Closed hip fracture Status: Acute Qualifiers: Encounter type: initial encounter Laterality: left Qualified Code(s): S72.002A - Fracture of unspecified part of neck of left femur, initial encounter for closed fracture Plan: NPO, PAIN CONTROL, ORIF TODAY, CONTINUE TO MONITOR
[2017-11-18 05:06] LABS: BASOPHILS % (AUTO) 0.6 % (0.2-1.0); EOSINOPHILS # (AUTO) 0.3 x10^3/uL (0.0-0.2); EOSINOPHILS % (AUTO) 4.6 % (0.9-2.9); HEMATOCRIT 32.7 % (36.0-47.0); HEMOGLOBIN 10.7 g/dL (12.0-16.0); LYMPHOCYTES # (AUTO) 1.8 X10^3/uL (1.3-2.9); LYMPHOCYTES % (AUTO) 25.2 % (21.0-51.0); MEAN CORPUSCULAR HEMOGLOBIN 26.5 pg (27.0-34.0); MEAN CORPUSCULAR HGB CONC 32.9 g/dL (33.0-35.0); MEAN CORPUSCULAR VOLUME 80.7 fL (80.0-100.0); MEAN PLATELET VOLUME 7.5 fL (7.4-11.0); MONOCYTES # (AUTO) 0.5 x10^3/uL (0.3-0.8); MONOCYTES % (AUTO) 6.9 % (0.0-13.0); NEUTROPHILS # (AUTO) 4.5 x10^3/uL (2.2-4.8); NEUTROPHILS % (AUTO) 62.7 % (42.0-75.0); PLATELET COUNT 357 X10^3/uL (150.0-450.0); RED BLOOD COUNT 4.04 X10^6/uL (3.5-5.4); RED CELL DISTRIBUTION WIDTH 20.6 % (11.6-16.5); WHITE BLOOD COUNT 7.2 X10^3/uL (3.6-10.0)
[2017-11-18] MEDS: PERCOCET TAB 5/325 MG PO SCH ×2 (05:20→14:00)
[2017-11-18 05:25] LABS: ALANINE AMINOTRANSFERASE 19 Units/L (12-78); ALBUMIN 2.5 g/dL (3.4-5.0); ALKALINE PHOSPHATASE 105 Units/L (46-116); ASPARTATE AMINO TRANSFERASE 20 Units/L (15-37); BLOOD UREA NITROGEN 7 mg/dL (7-18); CALCIUM 8.6 mg/dL (8.5-10.1); CARBON DIOXIDE 28.4 mmol/L (21-32); CHLORIDE 106 mmol/L (98-107); COR CA(FOR HYPOALB) 9.8 mg/dL (8.5-10.1); CREATININE 0.58 mg/dL (0.55-1.02); SODIUM 142 mmol/L (136-145); TOTAL PROTEIN 6.2 g/dL (6.4-8.2); eGFR NON BLACK RACES > 60 (>60)
[2017-11-18 05:35] LABS: ANISOCYTOSIS 1+; HYPOCHROMASIA SLIGHT; PLATELET MORPHOLOGY COMMENT NORMAL (NORMAL)
[2017-11-18] MEDS ORDERED: ZOLOFT PO ONE (08:24)
[2017-11-18] MEDS: REQUIP PO SCH ×2 (09:05→22:08)
[2017-11-18] MEDS: GLUCOPHAGE XR PO SCH ×2 (09:05→22:04)
[2017-11-18] MEDS: MIRALAX POWDER (1 DOSE 17 G) PO SCH (09:06)
[2017-11-18] MEDS: ZOLOFT PO SCH (09:06)
[2017-11-18] MEDS: NS 1000 ML 1,000 ML IV SCH (10:50)
[2017-11-18] MEDS: VISTARIL PO PRN (14:00)
[2017-11-18] MEDS ORDERED: PERCOCET TAB 5/325 MG PO PRN (21:04)
[2017-11-18] MEDS: DEMEROL INJ IVP PRN (21:13)
[2017-11-18] MEDS: MAALOX or MYLANTA PO PRN (22:06)
[2017-11-18] MEDS: PERCOCET TAB 5/325 MG PO PRN (22:07)
[2017-11-19 05:21] LABS: BASOPHILS % (AUTO) 0.5 % (0.2-1.0); EOSINOPHILS # (AUTO) 0.3 x10^3/uL (0.0-0.2); EOSINOPHILS % (AUTO) 3.9 % (0.9-2.9); HEMATOCRIT 33.7 % (36.0-47.0); LYMPHOCYTES # (AUTO) 1.9 X10^3/uL (1.3-2.9); LYMPHOCYTES % (AUTO) 27.9 % (21.0-51.0); MEAN CORPUSCULAR HEMOGLOBIN 26.3 pg (27.0-34.0); MEAN CORPUSCULAR HGB CONC 32.8 g/dL (33.0-35.0); MEAN CORPUSCULAR VOLUME 80.2 fL (80.0-100.0); MEAN PLATELET VOLUME 7.3 fL (7.4-11.0); MONOCYTES # (AUTO) 0.5 x10^3/uL (0.3-0.8); MONOCYTES % (AUTO) 7.5 % (0.0-13.0); NEUTROPHILS % (AUTO) 60.2 % (42.0-75.0); PLATELET COUNT 356 X10^3/uL (150.0-450.0); RED CELL DISTRIBUTION WIDTH 20.3 % (11.6-16.5); WHITE BLOOD COUNT 6.7 X10^3/uL (3.6-10.0)
[2017-11-19 05:28] LABS: ALANINE AMINOTRANSFERASE 19 Units/L (12-78); ALBUMIN 2.6 g/dL (3.4-5.0); ALKALINE PHOSPHATASE 114 Units/L (46-116); ASPARTATE AMINO TRANSFERASE 26 Units/L (15-37); BLOOD UREA NITROGEN 6 mg/dL (7-18); CALCIUM 8.8 mg/dL (8.5-10.1); CARBON DIOXIDE 27.1 mmol/L (21-32); CHLORIDE 107 mmol/L (98-107); COR CA(FOR HYPOALB) 9.9 mg/dL (8.5-10.1); CREATININE 0.63 mg/dL (0.55-1.02); SODIUM 143 mmol/L (136-145); TOTAL PROTEIN 6.2 g/dL (6.4-8.2); eGFR NON BLACK RACES > 60 (>60)
[2017-11-19 05:40] LABS: PLATELET MORPHOLOGY COMMENT NORMAL (NORMAL)
[2017-11-19 05:41] LABS: ANISOCYTOSIS 1+
[2017-11-19] MEDS ORDERED: POTASSIUM CHLORIDE LIQ 20 MEQ UDC PO PRN (06:19)
[2017-11-19] MEDS ORDERED: POTASSIUM CHL 40 MEQ/NS 0.45% 500 ML IV PRN (06:19)
[2017-11-19] MEDS ORDERED: K-LYTE EFFERVESCENT PO PRN (06:19)
[2017-11-19] MEDS ORDERED: POTASSIUM CHL 60 MEQ/NS 0.45% 500 ML IV PRN (06:19)
[2017-11-19] MEDS ORDERED: K-RIDER 10 MEQ/NS 100 ML 10 MEQ/100 ML BAG IV PRN (06:19)
[2017-11-19] MEDS: NS 1000 ML 1,000 ML IV SCH ×3 (06:46→16:28)
[2017-11-19] MEDS ORDERED: ANCEF 1 GRAM IV PREMIX* 2 G/100 ML BAG IV ONE (08:19)
[2017-11-19] MEDS ORDERED: LR 1000 ML IV 1,000 ML IV ONE (08:19)
--- NOTE | 2017-11-19 08:34 | PCM.PROG ---
Progress Note - Progress Note for Day of Date of Exam: 11/18/17 - Subjective Subjective: WAS ADMITTED FOR A LEFT HIP FRACTION AFTER FALLING AT THE [facility]. PATIENT RECENTLY HAD A LEFT HIP FRACTER REPAIR. NEW FRACTURE IS BELOW THE PRIOR INJURY. TODAY, SHE IS DISORIENTED, LYING IN BED ON MORNING ROUNDS. SHE IS MOANING AND COMPLAINING OF LEFT HIP PAIN. SHE CONTINUES TO BE IN BUCKS TRACTION AT THIS TIME. ON EXAMINATION, HEART IS REGULAR IN RATE AND RHYTHM. BILATERAL LUNGS ARE DIMINISHED THROUGHOUT. ABDOMEN IS ROUND, SOFT, AND NON-TENDER WITH NORMAL BOWEL SOUNDS NOTED IN ALL QUADRANTS. LEFT HIP AND LEG NOTED WITH SCATTERED BRUISING. HER VITALS THIS MORNING ARE 98.2-73-18-94%-150/ 75. ABNORMAL LAB VALUES INCLUDE THE FOLLOWING: HGB 10.7, HCT 32.7, POTASSIUM 3.4 , BUN 6, GLUCOSE 101, TOTAL PROTEIN 6.2, ALBUMIN 2.6. PLANNED TO TAKE PATIENT FOR ORIF THIS YESTERDAY, HOWEVER, SUPPLIES NEEDED HAD NOT YET ARRIVED. SHE IS SCHEDULED FOR ORIF Friday. WE ARE IN AGREEMENT WITH PLAN. OTHERWISE, WE WILL CONTINUE TO MONITOR LABS AND PAIN CONTROL AND FOLLOW UP WITH PATIENT. - Past Medical Family Social History Past Med/Fam/Surg Hx: No changes since H&P Allergies: Allergies azithromycin Allergy (Verified 11/13/17 23:23) ciprofloxacin Allergy (Verified 11/13/17 23:23) codeine Allergy (Verified 11/13/17 23:23) Corticosteroids (Glucocorticoids) Allergy (Verified 11/13/17 23:23) levofloxacin Allergy (Verified 11/13/17 23:23) morphine Allergy (Verified 11/13/17 23:23) niacin Allergy (Verified 11/13/17 23:23) promethazine Allergy (Verified 11/13/17 23:23) topiramate Allergy (Verified 11/13/17 23:23) - Review of Systems ROS: No change since H&P - Vital Signs and I&O's Vital Signs: Temperature 98.1 F Pulse Rate [Right Radial] 83 Pulse Rate 81 Respiratory Rate 20 Blood Pressure [Right Arm] 161/87 Blood Pressure [Left Arm] 117/71 Blood Pressure 132/62 O2 Sat by Pulse Oximetry 96 Intake and Output: Intake & Output 11/16/17 11/17/17 11/18/1719/18 11:59 11:59 11:59 11:59 Intake Total 1999 / 1979 940 / 940 620 / 620 Output Total 1800 / 1800 1600 / 1600 1850 / 1850 1675 / 1675 Balance 200 / 200 380 / 380 -910 / -910 -1055 / -1055 - Physical Exam Oriented: Person Eyes: Normal Ear: Normal Nose: Normal Throat: Normal Cardiovascular: Normal, Edema (MILD BILATERAL EDEMA) : Normal Auscultation: Bowel Sounds: Normal Tenderness: Normal Skin: Decreased Turgur, Bruising Musculoskeletal: Right (WRIST WITH CAST), Left, Hip, Swelling, Tender, Sensory Deficit, Instability Psychiatric: Depression Affect: Depressed Speech Pattern: Clear, Excessive - Laboratory and Diagnostics Result Diagrams: 11/19/17 04:55 11/19/17 04:55 Labs: 11/14/17 05:16 Urine,Catheterized Urine Culture - Final Laboratory WBC 6.7 X10^3/uL (3.6-10.0) 11/19/17 04:55 RBC 4.20 X10^6/uL (3.5-5.4) 11/19/17 04:55 Hgb 11.0 g/dL (12.0-16.0) L 11/19/17 04:55 Hct 33.7 % (36.0-47.0) L 11/19/17 04:55 MCV 80.2 fL (80.0-100.0) 11/19/17 04:55 MCH 26.3 pg (27.0-34.0) L 11/19/17 04:55 MCHC 32.8 g/dL (33.0-35.0) L 11/19/17 04:55 RDW 20.3 % (11.6-16.5) H 11/19/17 04:55 Plt Count 356 X10^3/uL (150.0-450.0) 11/19/17 04:55 Plt Count Comment Adequate (ADEQUATE) 11/19/17 04:55 MPV 7.3 fL (7.4-11.0) L 11/19/17 04:55 Neut % (Auto) 60.2 % (42.0-75.0) 11/19/17 04:55 Lymph % (Auto) 27.9 % (21.0-51.0) 11/19/17 04:55 [place] % (Auto) 7.5 % (0.0-13.0) 11/19/17 04:55 Eos % (Auto) 3.9 % (0.9-2.9) H 11/19/17 04:55 Baso % (Auto) 0.5 % (0.2-1.0) 11/19/17 04:55 Neut # (Auto) 4.0 x10^3/uL (2.2-4.8) 11/19/17 04:55 Lymph # (Auto) 1.9 X10^3/uL (1.3-2.9) 11/19/17 04:55 [place] # (Auto) 0.5 x10^3/uL (0.3-0.8) 11/19/17 04:55 Eos # (Auto) 0.3 x10^3/uL (0.0-0.2) H 11/19/17 04:55 Baso # (Auto) 0.0 X10^3/uL (0.0-0.1) 11/19/17 04:55 Absolute Nucleated RBC 0.0 /100WBC 11/19/17 04:55 Plt Morphology Comment Normal (NORMAL) 11/19/17 04:55 RBC Morphology Abnormal (NORMAL) A 11/19/17 04:55 Hypochromasia Slight A 11/18/17 04:45 Anisocytosis 1+ A 11/19/17 04:55 Sodium 143 mmol/L (136-145) 11/19/17 04:55 Corrected Sodium TNP 11/19/17 04:55 Potassium 3.4 mmol/L (3.5-5.1) L 11/19/17 04:55 Chloride 107 mmol/L (98-107) 11/19/17 04:55 Carbon Dioxide 27.1 mmol/L (21-32) 11/19/17 04:55 BUN 6 mg/dL (7-18) L 11/19/17 04:55 Creatinine 0.63 mg/dL (0.55-1.02) 11/19/17 04:55 Est GFR (MDRD) Af Amer > 60 (>60) 11/19/17 04:55 Est GFR (MDRD) Non-Af > 60 (>60) 11/19/17 04:55 Glucose 101 mg/dL (65-99) H 11/19/17 04:55 POC Glucose (mg/dL) 108 mg/dL (65-99) H 11/19/17 06:26 Calcium 8.8 mg/dL (8.5-10.1) 11/19/17 04:55 Corrected Calcium 9.9 mg/dL (8.5-10.1) 11/19/17 04:55 Magnesium 2.0 mg/dL (1.7-2.9) 11/19/17 04:55 Total Bilirubin 0.30 mg/dL (0.2-1.0) 11/19/17 04:55 AST 26 Units/L (15-37) 11/19/17 04:55 ALT 19 Units/L (12-78) 11/19/17 04:55 Alkaline Phosphatase 114 Units/L (46-116) 11/19/17 04:55 Creatine Kinase 19 Units/L (26-192) L 11/14/17 01:50 CK-MB (CK-2) 1.0 ng/mL (0-4.0) 11/14/17 01:50 CK/CKMB % Calc 5.3 % (<4) 11/14/17 01:50 Troponin I < 0.02 ng/mL (0-1.5) 11/14/17 01:50 Total Protein 6.2 g/dL (6.4-8.2) L 11/19/17 04:55 Albumin 2.6 g/dL (3.4-5.0) L 11/19/17 04:55 Globulin 3.6 g/dL (2.5-4.5) 11/19/17 04:55 Albumin/Globulin Ratio 0.7 Ratio (1.1-2.1) L 11/19/17 04:55 Specimen Type Catherized urine 11/14/17 12:10 Urine Color Yellow (YELLOW) 11/14/17 12:10 Urine Appearance Slightly hazy (CLEAR) 11/14/17 12:10 Urine pH 7.0 (5.0 - 8.0) 11/14/17 12:10 Ur Specific [place] 1.010 (1.000-1.030) 11/14/17 12:10 Urine Protein 1+ (NEGATIVE) 11/14/17 12:10 Urine Glucose (UA) 4+ (NEGATIVE) 11/14/17 12:10 Urine Ketones Negative (NEGATIVE) 11/14/17 12:10 Urine Occult Blood 1+ (NEGATIVE) 11/14/17 12:10 Urine Nitrite Negative (NEGATIVE) 11/14/17 12:10 Urine Bilirubin Negative (NEGATIVE) 11/14/17 12:10 Urine Urobilinogen Normal (NORMAL) 11/14/17 12:10 Ur Leukocyte Esterase 3+ (NEGATIVE) 11/14/17 12:10 Urine RBC 0-2 /HPF (NONE SEEN) 11/14/17 12:10 Urine WBC 20-30 /HPF (NONE SEEN) 11/14/17 12:10 Ur Squamous Epith Cells Rare /HPF (NEGATIVE) 11/14/17 12:10 Amorphous Sediment 1+ /HPF (NEGATIVE) 11/14/17 12:10 Urine Bacteria Trace /HPF (NEGATIVE) 11/14/17 12:10 Urine Yeast Numerous /HPF (NEGATIVE) 11/14/17 12:10 Ur Culture Indicated? Yes/culture set up 11/14/17 12:10 Blood Type O POSITIVE 11/14/17 13:08 Antibody Screen Negative 11/14/17 13:08 Crossmatch See Detail 11/14/17 13:08 - Plan (1) Closed hip fracture Status: Acute Qualifiers: Encounter type: initial encounter Laterality: left Qualified Code(s): S72.002A - Fracture of unspecified part of neck of left femur, initial encounter for closed fracture Plan: NPO, PAIN CONTROL, ORIF TODAY, CONTINUE TO MONITOR
[2017-11-19] MEDS ORDERED: FENTANYL INJ 250 mcg ONE (08:39)
[2017-11-19] MEDS: MIRALAX POWDER (1 DOSE 17 G) PO SCH (09:00)
[2017-11-19] MEDS: ZOLOFT PO SCH (09:00)
[2017-11-19] MEDS: REQUIP PO SCH ×2 (09:00→21:07)
[2017-11-19] MEDS: GLUCOPHAGE XR PO SCH ×2 (09:00→21:07)
[2017-11-19] MEDS ORDERED: DILAUDID INJ ONE (11:23)
[2017-11-19] MEDS: DILAUDID INJ IVP PRN ×3 (11:57→12:15)
[2017-11-19] MEDS ORDERED: ZOFRAN INJ 4 MG VIAL IVP PRN (11:58)
--- NOTE | 2017-11-19 14:45 | RAD ---
HISTORY: Postop left hip fracture Study: 2 views of the left hip Comparison: None Findings: Patient has undergone ORIF of the left hip. Hardware appears appropriately positioned . No acute frac tures or dislocations. Expected subcutaneous emphysema and surgical skin braden. IMPRESSION: 1. Expected postoperative appearance of the left hip. Reported By:
[2017-11-19] MEDS ORDERED: ZOFRAN INJ 4 MG VIAL ONE (15:03)
[2017-11-19] MEDS ORDERED: VERSED ONE (15:03)
[2017-11-19] MEDS ORDERED: QUELICIN (OR ANECTINE) ONE (15:03)
[2017-11-19] MEDS ORDERED: ROBINUL ONE (15:03)
[2017-11-19] MEDS ORDERED: NORCURON INJ 10 MG VIAL ONE (15:03)
[2017-11-19] MEDS ORDERED: NEOSTIGMINE INJ ONE (15:03)
[2017-11-19] MEDS ORDERED: XYLOCAINE 1 % (PLAIN) ONE (15:03)
[2017-11-19] MEDS ORDERED: SUPRANE IN ONE (15:03)
[2017-11-19] MEDS ORDERED: DIPRIVAN VIAL ONE (15:03)
[2017-11-19] MEDS: DEMEROL INJ IVP PRN ×2 (16:41→19:37)
[2017-11-19 17:57] LABS: HEMATOCRIT 36.1 % (36.0-47.0); HEMOGLOBIN 11.6 g/dL (12.0-16.0)
--- NOTE | 2017-11-19 18:39 | PCM.PROG ---
Progress Note - Progress Note for Day of Date of Exam: 11/19/17 - Subjective Subjective: WAS ADMITTED FOR A LEFT HIP FRACTION [facility]. PATIENT RECENTLY HAD A LEFT HIP FRACTER REPAIR. NEW FRACTURE IS BELOW THE PRIOR INJURY. TODAY, SHE IS DISORIENTED, LYING IN BED ON MORNING ROUNDS. SHE IS MOANING AND COMPLAINING OF LEFT HIP PAIN. SHE CONTINUES TO BE IN BUCKS TRACTION AT THIS TIME. ON EXAMINATION, HEART IS REGULAR IN RATE AND RHYTHM. BILATERAL LUNGS ARE DIMINISHED THROUGHOUT. ABDOMEN IS ROUND, SOFT, AND NON-TENDER WITH NORMAL BOWEL SOUNDS NOTED IN ALL QUADRANTS. LEFT HIP AND LEG NOTED WITH SCATTERED BRUISING. HER VITALS THIS MORNING ARE 98.2-73-18-94%-150/ 75. ABNORMAL LAB VALUES INCLUDE THE FOLLOWING: HGB 10.7, HCT 32.7, POTASSIUM 3.4 , BUN 6, GLUCOSE 101, TOTAL PROTEIN 6.2, ALBUMIN 2.6. PLANNED TO TAKE PATIENT FOR ORIF THIS YESTERDAY, HOWEVER, SUPPLIES NEEDED HAD NOT YET ARRIVED. SHE IS SCHEDULED FOR ORIF Friday. WE ARE IN AGREEMENT WITH PLAN. OTHERWISE, WE WILL CONTINUE TO MONITOR LABS AND PAIN CONTROL AND FOLLOW UP WITH PATIENT. - Past Medical Family Social History Past Med/Fam/Surg Hx: No changes since H&P Allergies: Allergies azithromycin Allergy (Verified 11/13/17 23:23) ciprofloxacin Allergy (Verified 11/13/17 23:23) codeine Allergy (Verified 11/13/17 23:23) Corticosteroids (Glucocorticoids) Allergy (Verified 11/13/17 23:23) levofloxacin Allergy (Verified 11/13/17 23:23) morphine Allergy (Verified 11/13/17 23:23) niacin Allergy (Verified 11/13/17 23:23) promethazine Allergy (Verified 11/13/17 23:23) topiramate Allergy (Verified 11/13/17 23:23) - Review of Systems ROS: No change since H&P - Vital Signs and I&O's Vital Signs: Temperature 98.3 F Pulse Rate [Left Brachial] 92 Pulse Rate [Right Radial] 83 Pulse Rate 83 Respiratory Rate 18 Blood Pressure [Right Arm] 164/76 Blood Pressure [Left Arm] 157/72 Blood Pressure 182/82 O2 Sat by Pulse Oximetry 96 Intake and Output: Intake & Output 11/17/17 11/18/17 11/19/17 11/20/17 11:59 11:59 11:59 11:59 Intake Total 1979 / 1979 940 / 940 1670 / 1670 475 / 475 Output Total 1600 / 1600 1850 / 1850 2455 / 2455 260 / 260 Balance 380 / 380 -910 / -910 -785 / -785 215 / 215 - Physical Exam Oriented: Person Eyes: Normal Ear: Normal Nose: Normal Throat: Normal Respiratory: Diminished Cardiovascular: Normal, Edema (MILD BILATERAL EDEMA) : Normal Auscultation: Bowel Sounds: Normal Tenderness: Normal Skin: Decreased Turgur, Bruising Musculoskeletal: Right (WRIST WITH CAST), Left, Hip, Swelling, Tender, Sensory Deficit, Instability Psychiatric: Depression, Agitation Mood Description: Anxious Affect: Depressed Speech Pattern: Clear, Excessive - Laboratory and Diagnostics Result Diagrams: 11/19/17 17:40 11/19/17 04:55 Labs: 11/14/17 05:16 Urine,Catheterized Urine Culture - Final Laboratory WBC 6.7 X10^3/uL (3.6-10.0) 11/19/17 04:55 RBC 4.20 X10^6/uL (3.5-5.4) 11/19/17 04:55 Hgb 11.6 g/dL (12.0-16.0) L 11/19/17 17:40 Hct 36.1 % (36.0-47.0) 11/19/17 17:40 MCV 80.2 fL (80.0-100.0) 11/19/17 04:55 MCH 26.3 pg (27.0-34.0) L 11/19/17 04:55 MCHC 32.8 g/dL (33.0-35.0) L 11/19/17 04:55 RDW 20.3 % (11.6-16.5) H 11/19/17 04:55 Plt Count 356 X10^3/uL (150.0-450.0) 11/19/17 04:55 Plt Count Comment Adequate (ADEQUATE) 11/19/17 04:55 MPV 7.3 fL (7.4-11.0) L 11/19/17 04:55 Neut % (Auto) 60.2 % (42.0-75.0) 11/19/17 04:55 Lymph % (Auto) 27.9 % (21.0-51.0) 11/19/17 04:55 [place] % (Auto) 7.5 % (0.0-13.0) 11/19/17 04:55 Eos % (Auto) 3.9 % (0.9-2.9) H 11/19/17 04:55 Baso % (Auto) 0.5 % (0.2-1.0) 11/19/17 04:55 Neut # (Auto) 4.0 x10^3/uL (2.2-4.8) 11/19/17 04:55 Lymph # (Auto) 1.9 X10^3/uL (1.3-2.9) 11/19/17 04:55 [place] # (Auto) 0.5 x10^3/uL (0.3-0.8) 11/19/17 04:55 Eos # (Auto) 0.3 x10^3/uL (0.0-0.2) H 11/19/17 04:55 Baso # (Auto) 0.0 X10^3/uL (0.0-0.1) 11/19/17 04:55 Absolute Nucleated RBC 0.0 /100WBC 11/19/17 04:55 Plt Morphology Comment Normal (NORMAL) 11/19/17 04:55 RBC Morphology Abnormal (NORMAL) A 11/19/17 04:55 Hypochromasia Slight A 11/18/17 04:45 Anisocytosis 1+ A 11/19/17 04:55 Sodium 143 mmol/L (136-145) 11/19/17 04:55 Corrected Sodium TNP 11/19/17 04:55 Potassium 3.4 mmol/L (3.5-5.1) L 11/19/17 04:55 Chloride 107 mmol/L (98-107) 11/19/17 04:55 Carbon Dioxide 27.1 mmol/L (21-32) 11/19/17 04:55 BUN 6 mg/dL (7-18) L 11/19/17 04:55 Creatinine 0.63 mg/dL (0.55-1.02) 11/19/17 04:55 Est GFR (MDRD) Af Amer > 60 (>60) 11/19/17 04:55 Est GFR (MDRD) Non-Af > 60 (>60) 11/19/17 04:55 Glucose 101 mg/dL (65-99) H 11/19/17 04:55 POC Glucose (mg/dL) 108 mg/dL (65-99) H 11/19/17 06:26 Calcium 8.8 mg/dL (8.5-10.1) 11/19/17 04:55 Corrected Calcium 9.9 mg/dL (8.5-10.1) 11/19/17 04:55 Magnesium 2.0 mg/dL (1.7-2.9) 11/19/17 04:55 Total Bilirubin 0.30 mg/dL (0.2-1.0) 11/19/17 04:55 AST 26 Units/L (15-37) 11/19/17 04:55 ALT 19 Units/L (12-78) 11/19/17 04:55 Alkaline Phosphatase 114 Units/L (46-116) 11/19/17 04:55 Creatine Kinase 19 Units/L (26-192) L 11/14/17 01:50 CK-MB (CK-2) 1.0 ng/mL (0-4.0) 11/14/17 01:50 CK/CKMB % Calc 5.3 % (<4) 11/14/17 01:50 Troponin I < 0.02 ng/mL (0-1.5) 11/14/17 01:50 Total Protein 6.2 g/dL (6.4-8.2) L 11/19/17 04:55 Albumin 2.6 g/dL (3.4-5.0) L 11/19/17 04:55 Globulin 3.6 g/dL (2.5-4.5) 11/19/17 04:55 Albumin/Globulin Ratio 0.7 Ratio (1.1-2.1) L 11/19/17 04:55 Specimen Type Catherized urine 11/14/17 12:10 Urine Color Yellow (YELLOW) 11/14/17 12:10 Urine Appearance Slightly hazy (CLEAR) 11/14/17 12:10 Urine pH 7.0 (5.0 - 8.0) 11/14/17 12:10 Ur Specific [place] 1.010 (1.000-1.030) 11/14/17 12:10 Urine Protein 1+ (NEGATIVE) 11/14/17 12:10 Urine Glucose (UA) 4+ (NEGATIVE) 11/14/17 12:10 Urine Ketones Negative (NEGATIVE) 11/14/17 12:10 Urine Occult Blood 1+ (NEGATIVE) 11/14/17 12:10 Urine Nitrite Negative (NEGATIVE) 11/14/17 12:10 Urine Bilirubin Negative (NEGATIVE) 11/14/17 12:10 Urine Urobilinogen Normal (NORMAL) 11/14/17 12:10 Ur Leukocyte Esterase 3+ (NEGATIVE) 11/14/17 12:10 Urine RBC 0-2 /HPF (NONE SEEN) 11/14/17 12:10 Urine WBC 20-30 /HPF (NONE SEEN) 11/14/17 12:10 Ur Squamous Epith Cells Rare /HPF (NEGATIVE) 11/14/17 12:10 Amorphous Sediment 1+ /HPF (NEGATIVE) 11/14/17 12:10 Urine Bacteria Trace /HPF (NEGATIVE) 11/14/17 12:10 Urine Yeast Numerous /HPF (NEGATIVE) 11/14/17 12:10 Ur Culture Indicated? Yes/culture set up 11/14/17 12:10 Blood Type O POSITIVE 11/14/17 13:08 Antibody Screen Negative 11/14/17 13:08 Crossmatch See Detail 11/14/17 13:08 - Plan (1) Closed hip fracture Status: Acute Qualifiers: Encounter type: initial encounter Laterality: left Qualified Code(s): S72.002A - Fracture of unspecified part of neck of left femur, initial encounter for closed fracture Plan: NPO, PAIN CONTROL, ORIF TODAY, CONTINUE TO MONITOR
[2017-11-19] MEDS: LOVENOX INJ 30 MG SYR SC SCH (21:08)
[2017-11-20] MEDS: DEMEROL INJ IVP PRN ×3 (02:05→11:43)
[2017-11-20] MEDS: NS 1000 ML 1,000 ML IV SCH (03:21)
[2017-11-20 06:23] LABS: BASOPHILS % (AUTO) 0.5 % (0.2-1.0); HEMATOCRIT 34.2 % (36.0-47.0); HEMOGLOBIN 11.1 g/dL (12.0-16.0); LYMPHOCYTES # (AUTO) 1.6 X10^3/uL (1.3-2.9); LYMPHOCYTES % (AUTO) 14.8 % (21.0-51.0); MEAN CORPUSCULAR HEMOGLOBIN 26.5 pg (27.0-34.0); MEAN CORPUSCULAR HGB CONC 32.4 g/dL (33.0-35.0); MEAN CORPUSCULAR VOLUME 81.8 fL (80.0-100.0); MONOCYTES # (AUTO) 0.9 x10^3/uL (0.3-0.8); MONOCYTES % (AUTO) 8.3 % (0.0-13.0); NEUTROPHILS # (AUTO) 8.1 x10^3/uL (2.2-4.8); NEUTROPHILS % (AUTO) 76.4 % (42.0-75.0); PLATELET COUNT 418 X10^3/uL (150.0-450.0); RED BLOOD COUNT 4.18 X10^6/uL (3.5-5.4); RED CELL DISTRIBUTION WIDTH 20.4 % (11.6-16.5); WHITE BLOOD COUNT 10.6 X10^3/uL (3.6-10.0)
[2017-11-20 06:32] LABS: BLOOD UREA NITROGEN 6 mg/dL (7-18); CALCIUM 8.6 mg/dL (8.5-10.1); CARBON DIOXIDE 21.1 mmol/L (21-32); CHLORIDE 106 mmol/L (98-107); COR NA(FOR HYPERGLY) 142 mmol/L (136-145); SODIUM 141 mmol/L (136-145); eGFR NON BLACK RACES > 60 (>60)
[2017-11-20 06:59] LABS: PLATELET MORPHOLOGY COMMENT NORMAL (NORMAL)
[2017-11-20 07:00] LABS: ANISOCYTOSIS 1+
[2017-11-20] MEDS ORDERED: ZOLOFT PO ONE (08:45)
[2017-11-20] MEDS: GLUCOPHAGE XR PO SCH (08:50)
[2017-11-20] MEDS: PERCOCET TAB 5/325 MG PO PRN (08:50)
[2017-11-20] MEDS: LOVENOX INJ 30 MG SYR SC SCH (08:51)
[2017-11-20] MEDS: REQUIP PO SCH (08:51)
[2017-11-20] MEDS: ZOLOFT PO SCH (08:51)
[2017-11-20] MEDS: MIRALAX POWDER (1 DOSE 17 G) PO SCH (09:49)
[2017-11-20 10:20] VITALS: BP 126/68
--- NOTE | 2017-11-24 17:53 | OR.GENERIC ---
Post-Op Note Generic - Post-Op Note Operative Report: preoperative diagnosis- LEFT femur periprosthetic fracture around bipolar stem Postoperative diagnosis-LEFT femur pedis prosthetic fracture Procedure-LEFT femur open reduction and fixation with cables and plates and screws. Date of surgery-11/19/2017 implant used-HERO file locking plate, 5.0 with cables Indication-patient's 72-year-old female was operated for a LEFT hip bipolar hemiarthroplasty for fracture neck of femur about 1 month ago. Patient is a assisted resident. She has issues with following postoperative instructions. She has dementia and had a fall in the assisted. X-rays were done in the emergency room which showed a periprosthetic fracture proximal to the stem. X-rays are compared which does not show any loosening sinking. Natural history and treatment discussions with the family. They wanted to proceed with open reduction and fixation of the femur. The risk and benefits were discussed with them. Preoperative-patient was seen in the preoperative holding area. Limb was marked. Patient got the proper antibiotic. Patient with appropriate anesthesia. The lip was marked. Complications including but not limited to infection, neurovascular damage, need for further procedure, need for revising of the hip prosthesis, damage to get the reduction. Continued pain and stiffness. Where he feel the complications which were discussed with the patient as well as the family. Procedure-patient was brought to the operating room. Patient was put under general anesthesia and endotracheal intubation was completed. Patient was put on the RIGHT lateral position on a pegboard. LEFT limber prepped and draped. An incision was made over the proximal part of the femoral shaft. Dissection carried down through the subcutaneous tissue to expose the tensor fascia lesa. Tensor fascia lesa exposed and incised in line with incision. Dissection carried down vastus lateralis was incised with a posterior lip and majority of the muscle anteriorly. HOMANS were placed. Fracture anatomy was exposed. It was a fairly undisplaced fracture. A cable passer was passed underneath the the circumference of the femur. 3 cables were placed. At this time an 10 hole plate was chosen. It was contoured. It is placed over the lateral aspect of the femur. Care was taken to get 4 cortices distal to the fracture as well as for the proximal. These were fixed and locked in nonlocking mode. Additional cables were passed incorporating the plate. Hemostasis is maintained throughout the procedure. Thorough irrigation was done. The muscle and the tensor fascia lesa was closed. The rest of the subcutis tissue and the fact and the skin was closed over the drain. Sterile dressing was reapplied. Patient was woken up from surgery. Patient was successfully intubated. Patient was shifted to the PACU in stable condition. Postoperative x-rays shows satisfactory alignment of the fracture and well aligned and well fixed fracture. Implant in place. No complications noted. The family was updated. Postoperative-we will keep the patient and discharge her at the medical of the discretion of the medical doctor. Patient is allowed weightbearing as tolerated. Patient is advised to still continue posterior hip precautions. Patient was started on LOVENOX. Patient will also be given prophylactic oral antibiotics. Drain was removed in a day or 2 when the drainage comes down significantly.Keep an eye on her labs. And transfuse accordingly if she needs. Follow-up as advised. Regular dressing change.
[2017-11-24] MEDS ORDERED: LOVENOX INJ 30 MG SYR SC ONE (21:38)
[2017-11-26] MEDS ORDERED: LOVENOX INJ 30 MG SYR SC ONE (00:37)
--- NOTE | 2017-12-31 01:22 | DR.CARTERD ---
- Discharge Summary for: Discharge Summary for Date of:: 11/20/17 - Admission Date Date of Admission: 11/14/17 - Admission Diagnoses Admission Diagnosis: (1) Closed hip fracture (2) COPD (chronic obstructive pulmonary disease) (3) Diabetes mellitus (4) GERD (gastroesophageal reflux disease) (5) Hypertension (6) Anxiety - Discharge Date Discharge Date: 11/20/17 - Discharge Diagnoses Discharge Diagnosis: (1) ORIF Closed hip fracture (2) COPD (chronic obstructive pulmonary disease) (3) Diabetes mellitus (4) GERD (gastroesophageal reflux disease) (5) Hypertension (6) Anxiety - Hospital Course Hospital Course: Day one, Ms. Khoury presented to the emergency room from the [facility] with reports of hip pain following a fall. correction staff reported patient fell and was complaining of left hip pain and left knee pain. Patient reported she missed the chair and took a good lick. Patient stated her left arm was hurting as well as pain from buttocks down to her left foot. No obvious deformities noted with strong pedal pulses noted bilateral. Patient underwent a left total hip replacement last month following a fall. A left hip x-ray was obtained which revealed a periprostatic left hip fracture around the femoral stem. Patient admitted to the hospital and Dr. Lowe consulted. Dr. Lowe planned for an ORIF of left hip the following Friday. Through the weekend pain management was continued and monitored. Day four and five, Ms. Khoury was admitted for a left hip fraction after falling at the [facility]. Patient recently had a left hip fracture repair. New fracture was below the prior injury. She was disoriented, lying in bed on morning rounds. She was moaning and complaining of left hip pain. She was noted to be in bucks traction. On examination, heart was regular in rate and rhythm. Bilateral lungs were diminished throughout. Abdomen was round, soft, and non-tender with normal bowel sounds noted in all quadrants. Left hip and leg noted with scattered bruising. Her vitals were 98.6-70-18-96%-140/60. She was hemodynamically stable. Dr. Lowe had planned to take patient to surgery this day; however, supplies were not in. Surgery postponed until Friday. Day six, Dr. Lowe took patient to OR for ORIF and patient tolerated procedure well. Dr Lowe reported: Patient was allowed weight bearing as tolerated; Patient was advised to still continue posterior hip precautions; Patient was started on LOVENOX; Patient also given prophylactic oral antibiotics. Wound care was continued following surgery. We continued treatment. Day seven, patient was doing better. Pain was controlled with oral pain medication. Dressing was dry and intact. Dr. Lowe released patient for discharge to [facility]. Vital signs stable, afebrile. Labs wnl. We planned for discharge. Instructions for medications and follow up were discussed with patient and family, both voiced understanding. Patient discharged to [facility] in stable condition with staff. - Discharge Medications Discharge Medications: Home Medication List dicyclomine 1 tab PO Q6H PRN 11/14/17 [History] fluticasone 2 spray INTRANASAL DAILY 11/14/17 [History] lorazepam 1 tab PO HS 11/14/17 [History] losartan 25 mg PO QDAY 11/14/17 [History] oxycodone-acetaminophen [Percocet] 1 tab PO TID 11/14/17 [History] polyethylene glycol 3350 [Miralax] 17 g PO QDAY 11/14/17 [History] simvastatin 1 tab PO HS 11/14/17 [History] enoxaparin 30 mg SC DAILY #20 ml 11/20/17 [Rx] Prescriptions: enoxaparin [facility] Orders canagliflozin [Invokana] 100 mg PO DAILY 05/19/17 dexlansoprazole [Dexilant] 60 mg PO DAILY 05/19/17 furosemide 20 mg PO DAILY 05/19/17 insulin detemir U-100 [Levemir U-100 Insulin] 20 unit SQ HS 05/19/17 albuterol sulfate [ProAir HFA] 2 puff INHALATION Q6H PRN 10/04/17 iron-folic acid-mv, min cmb#15 [Hemocyte-Plus] 1 cap PO DAILY 10/04/17 olanzapine [Zyprexa] 5 mg PO BID 10/04/17 ropinirole 0.5 mg PO BID PRN 10/04/17 sertraline [Zoloft] 100 mg PO DAILY 10/04/17 tramadol [Ultram] 50 mg PO Q8H PRN 10/04/17 - Discharge Disposition Discharge Disposition: We will follow up with patient in one week at [facility].
== END 2017-11-20 14:45 | DRG 536 ==
LOC: ER 23:21 → MED/SURG 11-14 01:49
PROVIDERS: ADMIT Internal Medicine; ATTEND Internal Medicine
PROC: ORIFHIP (2017-11-19 08:45)
DX: I25.10 Atherosclerotic heart disease of native coronary artery without angina pectoris; Y92.89 Other specified places as the place of occurrence of the external cause; R94.31 Abnormal electrocardiogram [ECG] [EKG]; K21.9 Gastro-esophageal reflux disease without esophagitis; F41.8 Other specified anxiety disorders; I10 Essential (primary) hypertension; R26.89 Other abnormalities of gait and mobility; E11.65 Type 2 diabetes mellitus with hyperglycemia; M97.02XA Periprosthetic fracture around internal prosthetic left hip joint, initial encounter; J44.9 Chronic obstructive pulmonary disease, unspecified; R60.0 Localized edema; S72.092A Other fracture of head and neck of left femur, initial encounter for closed fracture; W18.39XA Other fall on same level, initial encounter
CPT/HCPCS: 36415; 71010; 71045; 73030; 73501; 73552; 80048; 80053; 81001; 82550; 82553; 83735; 84484; 85014; 85018; 85025; 86850; 86900; 86901; 86922; 87086; 93005; 93010; 94760; 94762; 96365; 97163; 97167; 99284; A4216; A4222; Q0177; J0330; J0690; J1170; J1650; J2175; J2250; J2405; J2704; J2710; J3010; J3480; J3490; J7030; J7120; J7613

== ENCOUNTER 2018-03-30 10:13 | Observation (INO) ==
[2018-03-30 10:30] VITALS: BMI 29.5
--- NOTE | 2018-03-30 10:41 | DR.CONFE ---
HPI Time Seen Time Seen by Provider: 03/30/18 10:33 PCP Primary Care Physician: DR BYRNE HPI Comment HPI Comment: PATIENTS SYMTOMS ARE WORSE TODAY. Complaint Chief Complaint Doctors Comments: ABDOMINAL PAIN, CONSTIPATION AND NAUSEA TIMES 5 DAYS. USP GAVE ENEMAS AND LAXATIVES WITHOUT RESPONSE. Chief Complaint:: PT C/O NOT HAVING BM IN 5 DAYS. C/O GENERALIZED ABDOMINAL PAIN ASSOCIATED WITH NAUSEA Reviewed Nurses Notes Review: Yes Source History Provided: Patient Mode of Arrival Mode of Arrival: Stretcher Timing Onset of Chief Complaint: 03/26/18 Context History of: Constipation Severity Pain Severity: Moderate Associated signs and symptoms Associated signs and symptoms: Nausea PMH PMH Past Medical History: Yes Past Medical History: Anemia, Anxiety, Arthritis, CHF, COPD, Coronary Artery Disease, CVA, Dementia, Depression, Diabetes, Dyslipidemia, GERD, Hypertension and Schizophrenia Past Surgical History: Yes Surgical History: Cholecystectomy, Hysterectomy and Ortho Surgery Family History History of Family Medical Conditions: Yes Family Medical History: [place], Coronary Artery Disease and Hypertension Social History Does patient currently use any type of tobacco product: No Have you used tobacco products in the last 12 months: No Type of Tobacco Use: None Does any household member use tobacco: No Alcohol Use: None Do you use any recreational Drugs:: No Lives With: Alone Lives Where: Jail infectious screening In the last 2 months have you had wt loss of >10#?: NO Have you had fever, night sweats or hemotysis?: No Have you traveled outside the country in the last 6 months?: No Isolation: Standard ROS Review of Systems Constitutional: No Symptoms Reported PE Vital Signs Vital Signs: Temp Pulse Pulse Resp BP BP BP 03/31/18 23:59 97.8 F 63 20 126/60 03/31/18 20:00 99.0 F 62 64 20 114/56 03/31/18 16:00 98.6 F 68 20 101/53 03/31/18 12:00 97.4 F L 63 18 110/51 03/31/18 08:00 98.8 F 65 18 108/51 03/31/18 04:00 97.6 F 60 20 104/53 03/31/18 00:00 98.2 F 67 20 117/57 03/30/18 20:00 98.2 F 76 20 113/59 03/30/18 15:32 98.0 F 70 20 126/59 03/30/18 14:10 97.6 F 68 20 149/63 03/30/18 14:04 20 03/30/18 10:23 97.8 F 68 20 151/69 01/02/18 12:41 113/53 11/20/17 08:00 126/68 11/19/17 13:35 164/76 Pulse Ox 03/31/18 23:59 94 L 03/31/18 20:00 94 L 03/31/18 16:00 93 L 03/31/18 12:00 94 L 03/31/18 08:00 92 L 03/31/18 04:00 95 03/31/18 00:00 93 L 03/30/18 20:00 93 L 03/30/18 15:32 03/30/18 14:10 96 03/30/18 14:04 03/30/18 10:23 97 01/02/18 12:41 11/20/17 08:00 11/19/17 13:35 General Limitations: No Limitations General Appearance: Alert and In No Apparent Distress Head Head Exam: Normal Inspection Eyes Eye exam: Normal Appearance ENT ENT Exam: Normal External Ear Exam Neck Neck Exam: Trachea Midline Chest Chest Inspection: Symmetric Chest Wall Rise Respiratory Respiratory Exam: Normal Lung Sounds Bilat Respiratory Exam: Bilateral: Rhonchi and Lower: Rhonchi Cardiovascular Cardiovascular Exam: Regular Rate and Normal Rhythm Abdominal Exam Abdominal Exam: Normal Bowel Sounds, Soft and Tenderness Abdominal Tenderness: Diffuse and Moderate Rectal Rectal: Deferred Genitourinary External Exam: Female: Deferred : Speculum Exam (Female): Deferred : Bimanual Exam (female): Deferred Extremities Extremities Exam: Normal Inspection Back Back Exam: Normal Inspection Neurological Neurological Exam: Oriented X3; negative Motor Sensory Deficit Psychiatric Psychiatric Exam: Normal Affect and Normal Mood Skin Skin Exam: Warm, Dry, Intact and Normal Color MDM Additional information obtained Additional Information Obtained: Old records Differential Diagnosis Differential Diagnosis: Constipation, Diverticular Disease and Urinary tract infection COURSE Treatment Treatment: SEE ORDERS. Education/Counseling Education/Counseling: Patient Educated On: Diagnosis ROR Labs Reviewed Laboratory Results Reviewed?: Yes Result Diagrams: 03/31/18 05:03 03/31/18 05:03 Laboratory: WBC 7.2 X10^3/uL (3.6-10.0) 03/31/18 05:03 RBC 4.27 X10^6/uL (3.5-5.4) 03/31/18 05:03 Hgb 13.1 g/dL (12.0-16.0) 03/31/18 05:03 Hct 39.7 % (36.0-47.0) 03/31/18 05:03 MCV 92.9 fL (80.0-100.0) 03/31/18 05:03 MCH 30.7 pg (27.0-34.0) 03/31/18 05:03 MCHC 33.0 g/dL (33.0-35.0) 03/31/18 05:03 RDW 16.5 % (11.6-16.5) 03/31/18 05:03 Plt Count 169 X10^3/uL (150.0-450.0) 03/31/18 05:03 MPV 7.5 fL (7.4-11.0) 03/31/18 05:03 Neut % (Auto) 40.2 % (42.0-75.0) L 03/31/18 05:03 Lymph % (Auto) 48.9 % (21.0-51.0) 03/31/18 05:03 Latimer % (Auto) 7.5 % (0.0-13.0) 03/31/18 05:03 Eos % (Auto) 3.0 % (0.9-2.9) H 03/31/18 05:03 Baso % (Auto) 0.4 % (0.2-1.0) 03/31/18 05:03 Neut # (Auto) 2.9 x10^3/uL (2.2-4.8) 03/31/18 05:03 Lymph # (Auto) 3.5 X10^3/uL (1.3-2.9) H 03/31/18 05:03 Latimer # (Auto) 0.5 x10^3/uL (0.3-0.8) 03/31/18 05:03 Eos # (Auto) 0.2 x10^3/uL (0.0-0.2) 03/31/18 05:03 Baso # (Auto) 0.0 X10^3/uL (0.0-0.1) 03/31/18 05:03 Absolute Nucleated RBC 0.1 /100WBC 03/31/18 05:03 Sodium 143 mmol/L (136-145) 03/31/18 05:03 Corrected Sodium 144 mmol/L (136-145) 03/31/18 05:03 Potassium 4.3 mmol/L (3.5-5.1) 03/31/18 05:03 Chloride 105 mmol/L (98-107) 03/31/18 05:03 Carbon Dioxide 31.7 mmol/L (21-32) 03/31/18 05:03 BUN 17 mg/dL (7-18) 03/31/18 05:03 Creatinine 0.93 mg/dL (0.55-1.02) 03/31/18 05:03 Est GFR (MDRD) Af Amer > 60 (>60) 03/31/18 05:03 Est GFR (MDRD) Non-Af > 60 (>60) 03/31/18 05:03 Glucose 125 mg/dL (65-99) H 03/31/18 05:03 POC Glucose (mg/dL) 190 mg/dL (65-99) H 03/31/18 20:10 Calcium 9.0 mg/dL (8.5-10.1) 03/31/18 05:03 Corrected Calcium 10.0 mg/dL (8.5-10.1) 03/31/18 05:03 Total Bilirubin 0.30 mg/dL (0.2-1.0) 03/31/18 05:03 AST 17 Units/L (15-37) 03/31/18 05:03 ALT 15 Units/L (12-78) 03/31/18 05:03 Alkaline Phosphatase 78 Units/L (46-116) 03/31/18 05:03 Total Protein 6.8 g/dL (6.4-8.2) 03/31/18 05:03 Albumin 2.8 g/dL (3.4-5.0) L 03/31/18 05:03 Globulin 4.0 g/dL (2.5-4.5) 03/31/18 05:03 Albumin/Globulin Ratio 0.7 Ratio (1.1-2.1) L 03/31/18 05:03 Amylase 12 Units/L (25-115) L 03/30/18 11:05 Lipase 48 Units/L (73-393) L 03/30/18 11:05 Specimen Type Clean catch urine 03/30/18 22:28 Urine Color Yellow (YELLOW) 03/30/18 22:28 Urine Appearance Clear (CLEAR) 03/30/18 22:28 Urine pH 7.0 (5.0 - 8.0) 03/30/18 22:28 Ur Specific Rhododendron 1.010 (1.000-1.030) 03/30/18 22:28 Urine Protein Negative (NEGATIVE) 03/30/18 22:28 Urine Glucose (UA) 4+ (NEGATIVE) 03/30/18 22:28 Urine Ketones Negative (NEGATIVE) 03/30/18 22:28 Urine Occult Blood Negative (NEGATIVE) 03/30/18 22:28 Urine Nitrite Negative (NEGATIVE) 03/30/18 22:28 Urine Bilirubin Negative (NEGATIVE) 03/30/18 22:28 Urine Urobilinogen Normal (NORMAL) 03/30/18 22:28 Ur Leukocyte Esterase Negative (NEGATIVE) 03/30/18 22:28 XRAY XRAY Interpreted by: Radiologist XRAY Findings: REPORT NOTED AND DISCUSS WITH PATIENT.
[2018-03-30 11:12] LABS: BASOPHILS % (AUTO) 0.5 % (0.2-1.0); EOSINOPHILS # (AUTO) 0.1 x10^3/uL (0.0-0.2); EOSINOPHILS % (AUTO) 0.6 % (0.9-2.9); HEMATOCRIT 42.2 % (36.0-47.0); HEMOGLOBIN 14.1 g/dL (12.0-16.0); LYMPHOCYTES # (AUTO) 2.1 X10^3/uL (1.3-2.9); LYMPHOCYTES % (AUTO) 25.4 % (21.0-51.0); MEAN CORPUSCULAR HEMOGLOBIN 30.5 pg (27.0-34.0); MEAN CORPUSCULAR HGB CONC 33.4 g/dL (33.0-35.0); MEAN CORPUSCULAR VOLUME 91.2 fL (80.0-100.0); MEAN PLATELET VOLUME 7.5 fL (7.4-11.0); MONOCYTES # (AUTO) 0.5 x10^3/uL (0.3-0.8); MONOCYTES % (AUTO) 5.9 % (0.0-13.0); NEUTROPHILS # (AUTO) 5.6 x10^3/uL (2.2-4.8); NEUTROPHILS % (AUTO) 67.6 % (42.0-75.0); PLATELET COUNT 201 X10^3/uL (150.0-450.0); RED BLOOD COUNT 4.63 X10^6/uL (3.5-5.4); RED CELL DISTRIBUTION WIDTH 16.6 % (11.6-16.5); WHITE BLOOD COUNT 8.2 X10^3/uL (3.6-10.0)
[2018-03-30 11:24] LABS: ALANINE AMINOTRANSFERASE 10 Units/L (12-78); ALBUMIN 3.2 g/dL (3.4-5.0); ALKALINE PHOSPHATASE 91 Units/L (46-116); AMYLASE 12 Units/L (25-115); BLOOD UREA NITROGEN 18 mg/dL (7-18); CALCIUM 9.1 mg/dL (8.5-10.1); CARBON DIOXIDE 29.3 mmol/L (21-32); CHLORIDE 102 mmol/L (98-107); COR CA(FOR HYPOALB) 9.7 mg/dL (8.5-10.1); COR NA(FOR HYPERGLY) 144 mmol/L (136-145); CREATININE 0.87 mg/dL (0.55-1.02); LIPASE 48 Units/L (73-393); SODIUM 142 mmol/L (136-145); TOTAL PROTEIN 7.6 g/dL (6.4-8.2); eGFR NON BLACK RACES > 60 (>60)
[2018-03-30 11:32] LABS: ASPARTATE AMINO TRANSFERASE 15 Units/L (15-37)
--- NOTE | 2018-03-30 12:26 | RAD ---
HISTORY: Constipation with abdominal pain Study: Frontal view of the chest, flat and upright views of the abdomen Comparison: None. Findings: Cardiomediastinal silhouette is normal in size. No focal consolidations, pleural effusions or pneumothorax. Findings of COPD Osseous structures are without acute abnormality. Flat and upright views of the abdomen demonstrates a very large amount of stool in the distal colon. No free air. No abnormal calcifications or abnormal soft tissue shadows. No acute bony abnormalities. IMPRESSION: 1. No acute cardiopulmonary disease. 2. Very large amount of stool in distal colon. Reported By:
[2018-03-30] MEDS ORDERED: HYDROGEN PEROXIDE 3% ONE (15:04)
[2018-03-30] MEDS ORDERED: STERILE WATER IRRIGATION IR ONE (15:05)
[2018-03-30] MEDS: NS 1000 ML 1,000 ML IV SCH (16:40)
[2018-03-30] MEDS ORDERED: ZOFRAN INJ 4 MG VIAL IVP PRN (21:39)
[2018-03-30] MEDS ORDERED: MILK OF MAGNESIA PO PRN (21:41)
[2018-03-30] MEDS ORDERED: COLACE CAP 100 MG PO SCH (21:42)
[2018-03-30] MEDS ORDERED: DEPAKOTE D.R. TAB PO ONE (22:05)
[2018-03-30] MEDS: NAMENDA TAB 10 MG PO SCH (22:08)
[2018-03-30] MEDS: ARICEPT TAB 5 MG PO SCH (22:09)
[2018-03-30] MEDS: PERCOCET TAB 5/325 MG PO PRN (22:09)
[2018-03-30] MEDS: DEPAKOTE D.R. TAB PO SCH (22:09)
[2018-03-30] MEDS ORDERED: BUTT CREAM (COMPOUND) TOP PRN (22:42)
[2018-03-30 22:55] LABS: BILIRUBIN,URINE NEGATIVE (NEGATIVE); BLOOD/HEMOGLOBIN,URINE NEGATIVE (NEGATIVE); GLUCOSE, URINE 4+ (NEGATIVE); KETONES,URINE NEGATIVE (NEGATIVE); LEUKOCYTE ESTERASE ,URINE NEGATIVE (NEGATIVE); NITRITES,URINE NEGATIVE (NEGATIVE); PROTEIN,URINE NEGATIVE (NEGATIVE); UROBILINOGEN,URINE NORMAL (NORMAL)
[2018-03-30 23:10] LABS: APPEARANCE,URINE CLEAR (CLEAR); COLOR,URINE YELLOW (YELLOW)
[2018-03-31] MEDS: NS 1000 ML 1,000 ML IV SCH ×3 (05:13→16:57)
[2018-03-31 05:19] LABS: BASOPHILS % (AUTO) 0.4 % (0.2-1.0); EOSINOPHILS # (AUTO) 0.2 x10^3/uL (0.0-0.2); HEMATOCRIT 39.7 % (36.0-47.0); HEMOGLOBIN 13.1 g/dL (12.0-16.0); LYMPHOCYTES # (AUTO) 3.5 X10^3/uL (1.3-2.9); LYMPHOCYTES % (AUTO) 48.9 % (21.0-51.0); MEAN CORPUSCULAR HEMOGLOBIN 30.7 pg (27.0-34.0); MEAN CORPUSCULAR VOLUME 92.9 fL (80.0-100.0); MEAN PLATELET VOLUME 7.5 fL (7.4-11.0); MONOCYTES # (AUTO) 0.5 x10^3/uL (0.3-0.8); MONOCYTES % (AUTO) 7.5 % (0.0-13.0); NEUTROPHILS # (AUTO) 2.9 x10^3/uL (2.2-4.8); NEUTROPHILS % (AUTO) 40.2 % (42.0-75.0); PLATELET COUNT 169 X10^3/uL (150.0-450.0); RED BLOOD COUNT 4.27 X10^6/uL (3.5-5.4); RED CELL DISTRIBUTION WIDTH 16.5 % (11.6-16.5); WHITE BLOOD COUNT 7.2 X10^3/uL (3.6-10.0)
[2018-03-31 05:40] LABS: ALANINE AMINOTRANSFERASE 15 Units/L (12-78); ALBUMIN 2.8 g/dL (3.4-5.0); ALKALINE PHOSPHATASE 78 Units/L (46-116); ASPARTATE AMINO TRANSFERASE 17 Units/L (15-37); BLOOD UREA NITROGEN 17 mg/dL (7-18); CARBON DIOXIDE 31.7 mmol/L (21-32); CHLORIDE 105 mmol/L (98-107); COR NA(FOR HYPERGLY) 144 mmol/L (136-145); CREATININE 0.93 mg/dL (0.55-1.02); SODIUM 143 mmol/L (136-145); TOTAL PROTEIN 6.8 g/dL (6.4-8.2); eGFR NON BLACK RACES > 60 (>60)
--- NOTE | 2018-03-31 06:12 | RAD ---
HISTORY: Follow-up constipation Study: KUB Comparison: 03/30/2018 Findings: The abdominal gas pattern is nonspecific and nonobstructive. Although there is less stool in the distal colon there is still a large amount of stool throughout the ascending, transverse, and descending colon. No abnormal masses or abnormal calcifications are identified. The regional skeleton is intact. The patient is status post left hip hemiarthroplasty. IMPRESSION: Large amount of stool remaining in the ascending, transverse, and descending colon Reported By:
[2018-03-31] MEDS ORDERED: MAALOX or MYLANTA PO PRN (08:53)
[2018-03-31] MEDS ORDERED: MAALOX or MYLANTA ONE (08:54)
[2018-03-31] MEDS: DEPAKOTE D.R. TAB PO SCH ×2 (09:03→20:54)
[2018-03-31] MEDS: NAMENDA TAB 10 MG PO SCH ×2 (09:03→20:41)
[2018-03-31] MEDS: PERCOCET TAB 5/325 MG PO PRN ×2 (09:03→20:41)
[2018-03-31] MEDS: COLACE CAP 100 MG PO SCH ×2 (09:46→20:42)
[2018-03-31] MEDS: MILK OF MAGNESIA PO SCH ×2 (09:46→20:39)
[2018-03-31] MEDS: MIRALAX POWDER (1 DOSE 17 G) PO SCH (09:47)
[2018-03-31] MEDS ORDERED: PERCOCET TAB 5/325 MG PO PRN (10:22)
[2018-03-31] MEDS ORDERED: AMINO ACIDS PROTEIN HYDR FIBER PO SCH (10:30)
[2018-03-31] MEDS ORDERED: MEMANTINE 5 MG PO SCH (10:30)
[2018-03-31] MEDS: PATIENT'S HOME MEDICATION (Dexlansoprazole [Dexilant] 60 MG) PO SCH (11:28)
[2018-03-31] MEDS: INVOKANA PO SCH (11:28)
[2018-03-31] MEDS: COZAAR PO SCH (11:57)
[2018-03-31] MEDS: FLONASE NASAL SPRAY ENOSTRIL SCH (11:57)
[2018-03-31] MEDS: HEMOCYTE-PLUS PO SCH (11:57)
[2018-03-31] MEDS: LASIX PO SCH (11:57)
[2018-03-31] MEDS: VITAMIN C PO SCH ×2 (11:58→20:54)
[2018-03-31] MEDS: TAB-A-VITE PO SCH (11:58)
[2018-03-31] MEDS: REQUIP PO SCH ×2 (11:58→20:39)
[2018-03-31] MEDS: HumuLIN R SUBCUT PRN ×2 (11:59→20:54)
[2018-03-31] MEDS: PROVENTIL NEB TX 0.083% 2.5MG/ 3ML NEB SCH ×2 (19:55→20:00)
[2018-03-31] MEDS ORDERED: SNACK - Diabetic Appropriate PO SCH (20:00)
[2018-03-31] MEDS ORDERED: DEPAKOTE D.R. TAB PO ONE (20:18)
[2018-03-31] MEDS ORDERED: LEXAPRO ONE (20:19)
--- NOTE | 2018-03-31 20:27 | DR.H&P ---
H&P - History & Physical for Day of: H&P Date: 03/30/18 - Chief Complaint Chief Complaint: ABDOMIAL PAIN, CONSTIPATION - History of Present Illness History of Present Illness: IS A 3 YEAR OLD RESIDENT OF [facility] [place]. SHE PRESENTED TO THE ER WITH COMPLAINTS OF CONSTIPATION, ABDOMINAL PAIN, AND NAUSEA. SHE COMPLAINS OF NOT HAVING A BOWEL MOVEMENT IN THE LAST FIVE DAYS. ON ARRIVAL, VITALS WERE 97.8-68-20-97%-151/69. LABS WERE OBTAINED. ABNORMAL LAB VALUES INCLUDE THE FOLLOWING: GLUCOSE 175, ALT 10, ALBUMIN 3.2, AMYLASE 12, LIPASE 48. AN ACUTE ABDOMINAL SERIES WAS OBTAINED AND REVEALED: No acute cardiopulmonary disease. Very large amount of stool in distal colon. SHE WAS ADMITTED TO THE HOSPITAL FOR FURTHER EVALUATION AND TREATMENT OF ABDOMINAL PAIN AND CONSTIPATION. SHE WAS STARTED ON A BOWEL REGIMEN. WE PLAN TO FOLLOW UP WITH AM LABS AND CONTINUE TO MONITOR. - Past Medical History Past Medical History: Coronary Artery Disease, Hypertension, Dyslipidemia, Diabetes, Schizophrenia, Dementia, Depression, Anxiety, Anemia, CVA, COPD, GERD, Arthritis, CHF - Past Surgical History Surgical History: Cholecystectomy, Hysterectomy, Ortho Surgery, Other - Family History Family Medical History: Cancer, [place], Coronary Artery Disease, Hypertension - Social History Does patient currently use any type of tobacco product: No Have you used tobacco products in the last 12 months: No Type of Tobacco Use: None Does any household member use tobacco: No Alcohol Use: None Drug Use: None - Medications Home Medications: azithromycin Allergy (Verified 11/13/17 23:23) ciprofloxacin Allergy (Verified 11/13/17 23:23) codeine Allergy (Verified 11/13/17 23:23) Corticosteroids (Glucocorticoids) Allergy (Verified 11/13/17 23:23) levofloxacin Allergy (Verified 11/13/17 23:23) morphine Allergy (Verified 11/13/17 23:23) niacin Allergy (Verified 11/13/17 23:23) promethazine Allergy (Verified 11/13/17 23:23) topiramate Allergy (Verified 11/13/17 23:23) CONTINUE taking the following medications amino acids-protein hydr-fiber [Pro-Stat Renal Care] 1 pkg PO BID 03/30/18 [History] ascorbic acid (vitamin C) [Vitamin C] 500 mg PO BID 03/30/18 [History] divalproex [Depakote] 250 mg PO DAILY 03/30/18 [History] divalproex [Depakote] 500 mg PO HS 03/30/18 [History] donepezil [Aricept] 5 mg PO HS 03/30/18 [History] escitalopram oxalate [Lexapro] 10 mg PO HS 03/30/18 [History] memantine [Namenda] 5 mg PO BID 03/30/18 [History] multivitamin 1 tab PO DAILY 03/30/18 [History] risperidone [Risperdal] 0.5 mg PO HS 03/30/18 [History] zinc 50 mg PO DAILY 03/30/18 [History] - Review of Systems Constitutional: No Symptoms Reported Eyes: No Symptoms Reported ENT: No Symptoms Reported Respiratory: No Symptoms Reported Cardiovascular: No Symptoms Reported Gastrointestinal: Nausea, Abdominal Pain, Constipation Genitourinary: No Symptoms Reported Musculoskeletal: No Symptoms Reported Skin: No Symptoms Reported Neurological: No Symptoms Reported - Physical Exam Vital Signs: Temperature 98.6 F Pulse Rate [Right Brachial] 68 Pulse Rate 68 Respiratory Rate 20 Blood Pressure [Right Arm] 101/53 Blood Pressure [Left Arm] 126/68 Blood Pressure 151/69 O2 Sat by Pulse Oximetry 93 Oriented: Person Eyes: Normal Ear: Normal Nose: Normal Throat: Normal Respiratory: Diminished Throughout Cardiovascular: Normal. negative: S3, S4, Murmur : Normal Auscultation: Bowel Sounds: Normal Palpation: Normal Tenderness: Diffuse, Moderate. negative: Rebound, Guarding, Rigidity Skin: Normal Musculoskeletal: Normal Psychiatric: Normal Mood Description: Calm Affect: Normal Speech Pattern: Clear - Assessment/Plan (1) Constipation Qualifiers: Constipation type: unspecified constipation type Qualified Code(s): K59.00 - Constipation, unspecified Status: Acute Plan: ADMIT, BOWEL REGIMEN, CONTINUE TO MONITOR (2) Abdominal pain Qualifiers: Abdominal location: generalized Qualified Code(s): R10.84 - Generalized abdominal pain Status: Acute - Allergies Allergies/Adverse Reactions: Allergies Allergy/AdvReac Type Severity Reaction Status Date / Time azithromycin Allergy Verified 11/13/17 23:23 ciprofloxacin Allergy Verified 11/13/17 23:23 codeine Allergy Verified 11/13/17 23:23 Corticosteroids Allergy Verified 11/13/17 23:23 (Glucocorticoids) levofloxacin Allergy Verified 11/13/17 23:23 morphine Allergy Verified 11/13/17 23:23 niacin Allergy Verified 11/13/17 23:23 promethazine Allergy Verified 11/13/17 23:23 topiramate Allergy Verified 11/13/17 23:23
[2018-03-31] MEDS: ARICEPT TAB 5 MG PO SCH (20:40)
[2018-03-31] MEDS ORDERED: ZOCOR TAB 20 MG PO SCH (21:00)
[2018-03-31] MEDS ORDERED: LEXAPRO PO SCH (21:00)
[2018-04-01] MEDS: PERCOCET TAB 5/325 MG PO PRN (05:05)
[2018-04-01] MEDS: NS 1000 ML 1,000 ML IV SCH (05:05)
--- NOTE | 2018-04-01 05:59 | RAD ---
HISTORY: Constipation Study: KUB Comparison: 04/01/2018 Findings: The abdominal gas pattern is nonspecific and nonobstructive. There has been a significant decrease in the stool burden when compared with the prior examination. No abnormal masses or abnormal calcifications are identified. The regional skeleton is intact. IMPRESSION: Marked decrease in the stool burden since the prior examination. Reported By:
[2018-04-01 06:08] LABS: BASOPHILS % (AUTO) 0.6 % (0.2-1.0); EOSINOPHILS # (AUTO) 0.2 x10^3/uL (0.0-0.2); EOSINOPHILS % (AUTO) 3.6 % (0.9-2.9); HEMATOCRIT 39.6 % (36.0-47.0); HEMOGLOBIN 12.9 g/dL (12.0-16.0); LYMPHOCYTES # (AUTO) 3.1 X10^3/uL (1.3-2.9); LYMPHOCYTES % (AUTO) 48.9 % (21.0-51.0); MEAN CORPUSCULAR HEMOGLOBIN 30.6 pg (27.0-34.0); MEAN CORPUSCULAR HGB CONC 32.6 g/dL (33.0-35.0); MEAN CORPUSCULAR VOLUME 93.7 fL (80.0-100.0); MEAN PLATELET VOLUME 7.8 fL (7.4-11.0); MONOCYTES # (AUTO) 0.4 x10^3/uL (0.3-0.8); NEUTROPHILS # (AUTO) 2.5 x10^3/uL (2.2-4.8); NEUTROPHILS % (AUTO) 39.9 % (42.0-75.0); PLATELET COUNT 178 X10^3/uL (150.0-450.0); RED BLOOD COUNT 4.22 X10^6/uL (3.5-5.4); RED CELL DISTRIBUTION WIDTH 16.4 % (11.6-16.5); WHITE BLOOD COUNT 6.3 X10^3/uL (3.6-10.0)
[2018-04-01 06:28] LABS: ALANINE AMINOTRANSFERASE 11 Units/L (12-78); ALBUMIN 2.8 g/dL (3.4-5.0); ALKALINE PHOSPHATASE 81 Units/L (46-116); ASPARTATE AMINO TRANSFERASE 13 Units/L (15-37); BLOOD UREA NITROGEN 14 mg/dL (7-18); CALCIUM 8.5 mg/dL (8.5-10.1); CARBON DIOXIDE 31.5 mmol/L (21-32); CHLORIDE 105 mmol/L (98-107); COR CA(FOR HYPOALB) 9.5 mg/dL (8.5-10.1); COR NA(FOR HYPERGLY) 144 mmol/L (136-145); CREATININE 0.82 mg/dL (0.55-1.02); SODIUM 143 mmol/L (136-145); TOTAL PROTEIN 6.6 g/dL (6.4-8.2); eGFR NON BLACK RACES > 60 (>60)
[2018-04-01] MEDS: HumuLIN R SUBCUT PRN ×2 (06:29→11:53)
[2018-04-01] MEDS ORDERED: ZINC SULFATE PO SCH (09:00)
[2018-04-01] MEDS: PROVENTIL NEB TX 0.083% 2.5MG/ 3ML NEB SCH (09:05)
[2018-04-01] MEDS: FLONASE NASAL SPRAY ENOSTRIL SCH (09:33)
[2018-04-01] MEDS: MILK OF MAGNESIA PO SCH (09:33)
[2018-04-01] MEDS: REQUIP PO SCH (09:34)
[2018-04-01] MEDS: VITAMIN C PO SCH (09:35)
[2018-04-01] MEDS: HEMOCYTE-PLUS PO SCH (09:35)
[2018-04-01] MEDS: LASIX PO SCH (09:35)
[2018-04-01] MEDS: COZAAR PO SCH (09:35)
[2018-04-01] MEDS: TAB-A-VITE PO SCH (09:35)
[2018-04-01] MEDS: COLACE CAP 100 MG PO SCH (09:36)
[2018-04-01] MEDS: NAMENDA TAB 10 MG PO SCH (09:36)
[2018-04-01] MEDS: PATIENT'S HOME MEDICATION (Dexlansoprazole [Dexilant] 60 MG) PO SCH (09:37)
[2018-04-01] MEDS: INVOKANA PO SCH (09:37)
[2018-04-01] MEDS: DEPAKOTE D.R. TAB PO SCH (09:38)
[2018-04-01] MEDS: MIRALAX POWDER (1 DOSE 17 G) PO SCH (09:38)
[2018-04-01 13:56] VITALS: BP 142/65
== END 2018-04-01 13:55 ==
LOC: MED/SURG 10:13 → ER 10:13 → MED/SURG 14:05
PROVIDERS: ADMIT Internal Medicine; ATTEND Internal Medicine
DX: R10.84 Generalized abdominal pain; J44.9 Chronic obstructive pulmonary disease, unspecified; E78.2 Mixed hyperlipidemia; F41.8 Other specified anxiety disorders; K59.09 Other constipation; I25.10 Atherosclerotic heart disease of native coronary artery without angina pectoris; K21.9 Gastro-esophageal reflux disease without esophagitis; I10 Essential (primary) hypertension; F20.89 Other schizophrenia
CPT/HCPCS: 36415; 74000; 74018; 74022; 80053; 81003; 82150; 83690; 85025; 94640; 94760; 96365; 99282; 99284; A4217; A4222; G0378; J1815; J2405; J7030; J7613

== ENCOUNTER 2018-09-28 18:08 | Inpatient (IN) ==
[2018-09-28 21:15] LABS: BASOPHILS % (AUTO) 0.5 % (0.2-1.0); EOSINOPHILS # (AUTO) 0.1 x10^3/uL (0.0-0.2); EOSINOPHILS % (AUTO) 0.9 % (0.9-2.9); HEMATOCRIT 41.8 % (36.0-47.0); HEMOGLOBIN 14.1 g/dL (12.0-16.0); LYMPHOCYTES # (AUTO) 2.2 X10^3/uL (1.3-2.9); LYMPHOCYTES % (AUTO) 21.8 % (21.0-51.0); MEAN CORPUSCULAR HEMOGLOBIN 32.5 pg (27.0-34.0); MEAN CORPUSCULAR HGB CONC 33.7 g/dL (33.0-35.0); MEAN CORPUSCULAR VOLUME 96.5 fL (80.0-100.0); MEAN PLATELET VOLUME 7.7 fL (7.4-11.0); MONOCYTES # (AUTO) 0.7 x10^3/uL (0.3-0.8); MONOCYTES % (AUTO) 7.1 % (0.0-13.0); NEUTROPHILS # (AUTO) 6.9 x10^3/uL (2.2-4.8); NEUTROPHILS % (AUTO) 69.7 % (42.0-75.0); PLATELET COUNT 197 X10^3/uL (150.0-450.0); RED BLOOD COUNT 4.33 X10^6/uL (3.5-5.4); RED CELL DISTRIBUTION WIDTH 12.5 % (11.6-16.5); WHITE BLOOD COUNT 9.9 X10^3/uL (3.6-10.0)
[2018-09-28 21:29] LABS: ALBUMIN 3.1 g/dL (3.4-5.0); CALCIUM 8.7 mg/dL (8.5-10.1); CARBON DIOXIDE 33.3 mmol/L (21-32); COR CA(FOR HYPOALB) 9.4 mg/dL (8.5-10.1); CREATININE 1.22 mg/dL (0.55-1.02); TOTAL PROTEIN 7.6 g/dL (6.4-8.2)
[2018-09-28] MEDS: NS 1000 ML 1,000 ML IV SCH (21:58)
[2018-09-28] MEDS: ZOSYN VIAL 3.375 GRAMS 3.375 G in NS 100 ML IV + SPIKE MINIBAG* 100 ML IV SCH (21:58)
[2018-09-28] MEDS ORDERED: ZOSYN VIAL 3.375 GRAMS IV SCH (22:00)
[2018-09-29] MEDS ORDERED: PROVENTIL NEB TX 0.083% 2.5MG/ 3ML NEB PRN (02:21)
[2018-09-29 05:01] LABS: BASOPHILS % (AUTO) 0.4 % (0.2-1.0); EOSINOPHILS # (AUTO) 0.1 x10^3/uL (0.0-0.2); EOSINOPHILS % (AUTO) 1.4 % (0.9-2.9); HEMATOCRIT 41.4 % (36.0-47.0); HEMOGLOBIN 13.9 g/dL (12.0-16.0); LYMPHOCYTES # (AUTO) 2.3 X10^3/uL (1.3-2.9); LYMPHOCYTES % (AUTO) 26.8 % (21.0-51.0); MEAN CORPUSCULAR HEMOGLOBIN 32.5 pg (27.0-34.0); MEAN CORPUSCULAR HGB CONC 33.5 g/dL (33.0-35.0); MEAN PLATELET VOLUME 7.7 fL (7.4-11.0); MONOCYTES # (AUTO) 0.7 x10^3/uL (0.3-0.8); NEUTROPHILS # (AUTO) 5.5 x10^3/uL (2.2-4.8); NEUTROPHILS % (AUTO) 63.4 % (42.0-75.0); PLATELET COUNT 172 X10^3/uL (150.0-450.0); RED BLOOD COUNT 4.27 X10^6/uL (3.5-5.4); RED CELL DISTRIBUTION WIDTH 12.7 % (11.6-16.5); WHITE BLOOD COUNT 8.6 X10^3/uL (3.6-10.0)
[2018-09-29 05:16] LABS: ALANINE AMINOTRANSFERASE 11 Units/L (12-78); ALBUMIN 2.7 g/dL (3.4-5.0); ALKALINE PHOSPHATASE 108 Units/L (46-116); ASPARTATE AMINO TRANSFERASE 9 Units/L (15-37); BLOOD UREA NITROGEN 17 mg/dL (7-18); CALCIUM 8.3 mg/dL (8.5-10.1); CARBON DIOXIDE 31.6 mmol/L (21-32); CHLORIDE 102 mmol/L (98-107); COR CA(FOR HYPOALB) 9.3 mg/dL (8.5-10.1); COR NA(FOR HYPERGLY) 145 mmol/L (136-145); CREATININE 0.99 mg/dL (0.55-1.02); SODIUM 140 mmol/L (136-145); TOTAL PROTEIN 7.1 g/dL (6.4-8.2); eGFR NON BLACK RACES 58 (>60)
[2018-09-29] MEDS ORDERED: POTASSIUM CHL 60 MEQ/NS 0.45% 500 ML IV PRN (05:26)
[2018-09-29] MEDS ORDERED: MICRO K EXTEN CAP 10 MEQ PO PRN (05:26)
[2018-09-29] MEDS ORDERED: POTASSIUM CHL 40 MEQ/NS 0.45% 500 ML IV PRN (05:26)
[2018-09-29] MEDS ORDERED: MAGNESIUM SULFATE 1 GRAM/100 mL PREMIX 1 GM/100 ML BAG IV PRN (05:26)
[2018-09-29] MEDS ORDERED: K-RIDER 10 MEQ/NS 100 ML 10 MEQ/100 ML BAG IV PRN (05:26)
[2018-09-29] MEDS ORDERED: POTASSIUM CHLORIDE LIQ 20 MEQ UDC PO PRN (05:26)
[2018-09-29] MEDS ORDERED: KLOR-CON PO PRN (05:26)
[2018-09-29] MEDS: NS 1000 ML 1,000 ML IV SCH ×3 (06:21→21:00)
[2018-09-29] MEDS: ZOSYN VIAL 3.375 GRAMS 3.375 G in NS 100 ML IV + SPIKE MINIBAG* 100 ML IV SCH ×3 (06:21→21:21)
[2018-09-29] MEDS: K-DUR TAB 20 MEQ PO PRN (06:22)
[2018-09-29] MEDS: HumuLIN R SUBCUT PRN ×2 (06:22→16:39)
[2018-09-29] MEDS ORDERED: NS 250 ML IV 250 ML ONE (06:37)
[2018-09-29] MEDS: ULTRAM PO PRN ×2 (10:06→21:18)
[2018-09-29] MEDS ORDERED: REQUIP PO PRN (10:45)
[2018-09-29] MEDS ORDERED: FEXOFENADINE PO SCH (11:00)
[2018-09-29] MEDS ORDERED: PHARMACY CONSULT - DOSE _____ XX SCH (11:00)
[2018-09-29] MEDS ORDERED: PSEUDOEPHEDRINE PO SCH (11:00)
[2018-09-29] MEDS: TAB-A-VITE PO SCH (11:58)
[2018-09-29] MEDS: NEURONTIN CAP 300 MG PO SCH ×4 (11:58→21:18)
[2018-09-29] MEDS: VITAMIN C PO SCH ×2 (11:58→21:20)
[2018-09-29] MEDS: HEMOCYTE-PLUS PO SCH (11:58)
[2018-09-29] MEDS: COLACE CAP 100 MG PO SCH ×2 (11:58→21:19)
[2018-09-29] MEDS: PROTONIX TAB 40 MG PO SCH (11:58)
[2018-09-29] MEDS: DEPAKOTE D.R. TAB PO SCH ×2 (11:59→21:18)
[2018-09-29] MEDS: COZAAR PO SCH (11:59)
[2018-09-29] MEDS: SENOKOT PO SCH ×2 (11:59→21:19)
[2018-09-29] MEDS: PERCOCET TAB 5/325 MG PO PRN (12:03)
[2018-09-29] MEDS: LASIX PO SCH (12:03)
[2018-09-29] MEDS: ZOFRAN TAB 4 MG PO PRN (12:03)
[2018-09-29] MEDS: EMPAGLIFLOZIN 10 MG PO SCH (12:13)
[2018-09-29] MEDS: FLONASE NASAL SPRAY ENOSTRIL SCH ×2 (14:04→14:08)
[2018-09-29] MEDS: ARTIFICIAL TEARS DROPS OP SCH ×2 (14:08→21:21)
[2018-09-29] MEDS ORDERED: MAALOX or MYLANTA PO PRN (14:09)
[2018-09-29] MEDS: SNACK - Diabetic Appropriate PO SCH (20:00)
[2018-09-29] MEDS ORDERED: DEPAKOTE D.R. TAB ONE (20:27)
[2018-09-29] MEDS ORDERED: LEXAPRO ONE (20:28)
[2018-09-29] MEDS: LEXAPRO PO SCH (21:18)
[2018-09-29] MEDS: ARICEPT TAB 5 MG PO SCH (21:20)
[2018-09-29] MEDS: ZOCOR TAB 20 MG PO SCH (21:20)
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
[2018-09-30] MEDS: PERCOCET TAB 5/325 MG PO PRN ×3 (04:15→19:36)
[2018-09-30 05:09] LABS: BASOPHILS % (AUTO) 0.4 % (0.2-1.0); EOSINOPHILS # (AUTO) 0.2 x10^3/uL (0.0-0.2); EOSINOPHILS % (AUTO) 1.9 % (0.9-2.9); HEMATOCRIT 40.3 % (36.0-47.0); HEMOGLOBIN 13.2 g/dL (12.0-16.0); LYMPHOCYTES # (AUTO) 2.2 X10^3/uL (1.3-2.9); LYMPHOCYTES % (AUTO) 25.3 % (21.0-51.0); MEAN CORPUSCULAR HEMOGLOBIN 32.1 pg (27.0-34.0); MEAN CORPUSCULAR HGB CONC 32.9 g/dL (33.0-35.0); MEAN CORPUSCULAR VOLUME 97.8 fL (80.0-100.0); MEAN PLATELET VOLUME 7.9 fL (7.4-11.0); MONOCYTES # (AUTO) 0.5 x10^3/uL (0.3-0.8); MONOCYTES % (AUTO) 5.5 % (0.0-13.0); NEUTROPHILS # (AUTO) 5.8 x10^3/uL (2.2-4.8); NEUTROPHILS % (AUTO) 66.9 % (42.0-75.0); PLATELET COUNT 190 X10^3/uL (150.0-450.0); RED BLOOD COUNT 4.12 X10^6/uL (3.5-5.4); RED CELL DISTRIBUTION WIDTH 12.5 % (11.6-16.5); WHITE BLOOD COUNT 8.7 X10^3/uL (3.6-10.0)
[2018-09-30] MEDS: NS 1000 ML 1,000 ML IV SCH ×3 (05:13→20:34)
[2018-09-30 05:28] LABS: ALANINE AMINOTRANSFERASE 11 Units/L (12-78); ALBUMIN 2.6 g/dL (3.4-5.0); ALKALINE PHOSPHATASE 98 Units/L (46-116); ASPARTATE AMINO TRANSFERASE 13 Units/L (15-37); BLOOD UREA NITROGEN 13 mg/dL (7-18); CARBON DIOXIDE 29.5 mmol/L (21-32); CHLORIDE 106 mmol/L (98-107); COR CA(FOR HYPOALB) 9.1 mg/dL (8.5-10.1); COR NA(FOR HYPERGLY) 142 mmol/L (136-145); CREATININE 0.85 mg/dL (0.55-1.02); SODIUM 141 mmol/L (136-145); TOTAL PROTEIN 6.8 g/dL (6.4-8.2); eGFR NON BLACK RACES > 60 (>60)
[2018-09-30] MEDS: ZOSYN VIAL 3.375 GRAMS 3.375 G in NS 100 ML IV + SPIKE MINIBAG* 100 ML IV SCH ×3 (06:08→21:39)
[2018-09-30 07:41] VITALS: BMI 32.8
--- NOTE | 2018-09-30 08:37 | PCM.PROG ---
Progress Note - Progress Note for Day of Date of Exam: 09/29/18 - Subjective Subjective: WAS ADMITTED FOR RIGHT HIP CELLULITIS. TODAY, SHE IS ALERT AND ORIENTED, LYING IN BED WITH EYES CLOSED ON MORNING ROUNDS. SHE AWAKENS AND RESPONDS TO VERBAL STIMULI. SHE CONTINUES WITH PAIN TO THE RIGHT HIP. THERE CONTINUES TO BE ERYTHEMA AND POSSIBLE ABSCESS FORMATION. HER VITALS THIS MORNING ARE: 99.1-82-18-92%-131/61. LABS WERE OBTIAINED. ABNORMAL LAB VALUES INCLUDE THE FOLLOWING: GLUCOSE 293, CALCIUM 8.3, AST 9, ALT 11, ALBUMIN 2.7. BLOOD AND HIP WOUND CULTURES ARE PENDING. SHE IS CURRENTLY RECEIVING IV FLUIDS AND ZOSYN 3.375G IV TID. HOME MEDICATIONS WERE RESUMED. WE WILL CONTINUE WITH CURRENT PLAN OF CARE TODAY. WE WILL CONSULT FOR POSSIBLE I&D. OTHERWISE, WE PLAN TO FOLLOW UP WITH AM LABS AND CONTINUE TO MONITOR. - Past Medical Family Social History Past Med/Fam/Surg Hx: No changes since H&P Allergies: Allergies azithromycin Allergy (Verified 11/13/17 23:23) ciprofloxacin Allergy (Verified 11/13/17 23:23) codeine Allergy (Verified 11/13/17 23:23) Corticosteroids (Glucocorticoids) Allergy (Verified 11/13/17 23:23) levofloxacin Allergy (Verified 11/13/17 23:23) morphine Allergy (Verified 11/13/17 23:23) niacin Allergy (Verified 11/13/17 23:23) promethazine Allergy (Verified 11/13/17 23:23) topiramate Allergy (Verified 11/13/17 23:23) - Review of Systems ROS: No change since H&P - Vital Signs and I&O's Vital Signs: Temperature 99.0 F Pulse Rate [Left Radial] 86 Pulse Rate 77 Respiratory Rate 18 Blood Pressure [Right Arm] 115/56 Blood Pressure [Left Arm] 124/62 Blood Pressure 142/65 O2 Sat by Pulse Oximetry 90 Intake and Output: Intake & Output 09/27/18 09/28/18 09/29/18 09/30/18 11:59 11:59 11:59 11:59 Intake Total 2023 920 / 920 Balance 2023 920 / 920 - Physical Exam Oriented: Normal Eyes: Normal Ear: Normal Nose: Normal Throat: Normal Respiratory: Generalized, Diminished Cardiovascular: Normal. negative: S3, S4, Murmur : Normal Auscultation: Bowel Sounds: Normal Palpation: Normal Tenderness: Normal Skin: Red, Tender, Hot Musculoskeletal: Normal Psychiatric: Normal Mood Description: Calm Affect: Normal Speech Pattern: Clear - Laboratory and Diagnostics Result Diagrams: 09/30/18 04:32 09/30/18 04:32 Labs: 09/29/18 10:32 Hip - Right Gram Stain - Final Laboratory WBC 8.7 X10^3/uL (3.6-10.0) 09/30/18 04:32 RBC 4.12 X10^6/uL (3.5-5.4) 09/30/18 04:32 Hgb 13.2 g/dL (12.0-16.0) 09/30/18 04:32 Hct 40.3 % (36.0-47.0) 09/30/18 04:32 MCV 97.8 fL (80.0-100.0) 09/30/18 04:32 MCH 32.1 pg (27.0-34.0) 09/30/18 04:32 MCHC 32.9 g/dL (33.0-35.0) L 09/30/18 04:32 RDW 12.5 % (11.6-16.5) 09/30/18 04:32 Plt Count 190 X10^3/uL (150.0-450.0) 09/30/18 04:32 MPV 7.9 fL (7.4-11.0) 09/30/18 04:32 Neut % (Auto) 66.9 % (42.0-75.0) 09/30/18 04:32 Lymph % (Auto) 25.3 % (21.0-51.0) 09/30/18 04:32 [place] % (Auto) 5.5 % (0.0-13.0) 09/30/18 04:32 Eos % (Auto) 1.9 % (0.9-2.9) 09/30/18 04:32 Baso % (Auto) 0.4 % (0.2-1.0) 09/30/18 04:32 Neut # (Auto) 5.8 x10^3/uL (2.2-4.8) H 09/30/18 04:32 Lymph # (Auto) 2.2 X10^3/uL (1.3-2.9) 09/30/18 04:32 [place] # (Auto) 0.5 x10^3/uL (0.3-0.8) 09/30/18 04:32 Eos # (Auto) 0.2 x10^3/uL (0.0-0.2) 09/30/18 04:32 Baso # (Auto) 0.0 X10^3/uL (0.0-0.1) 09/30/18 04:32 Absolute Nucleated RBC 0.0 /100WBC 09/30/18 04:32 Sodium 141 mmol/L (136-145) 09/30/18 04:32 Corrected Sodium 142 mmol/L (136-145) 09/30/18 04:32 Potassium 4.5 mmol/L (3.5-5.1) 09/30/18 04:32 Chloride 106 mmol/L (98-107) 09/30/18 04:32 Carbon Dioxide 29.5 mmol/L (21-32) 09/30/18 04:32 BUN 13 mg/dL (7-18) 09/30/18 04:32 Creatinine 0.85 mg/dL (0.55-1.02) 09/30/18 04:32 Est GFR (MDRD) Af Amer > 60 (>60) 09/30/18 04:32 Est GFR (MDRD) Non-Af > 60 (>60) 09/30/18 04:32 Glucose 162 mg/dL (65-99) H 09/30/18 04:32 Calcium 8.0 mg/dL (8.5-10.1) L 09/30/18 04:32 Corrected Calcium 9.1 mg/dL (8.5-10.1) 09/30/18 04:32 Magnesium 2.2 mg/dL (1.7-2.9) 09/29/18 04:00 Total Bilirubin 0.40 mg/dL (0.2-1.0) 09/30/18 04:32 AST 13 Units/L (15-37) L 09/30/18 04:32 ALT 11 Units/L (12-78) L 09/30/18 04:32 Alkaline Phosphatase 98 Units/L (46-116) 09/30/18 04:32 Total Protein 6.8 g/dL (6.4-8.2) 09/30/18 04:32 Albumin 2.6 g/dL (3.4-5.0) L 09/30/18 04:32 Globulin 4.2 g/dL (2.5-4.5) 09/30/18 04:32 Albumin/Globulin Ratio 0.6 Ratio (1.1-2.1) L 09/30/18 04:32 - Plan (1) Cellulitis of right hip Status: Acute Plan: IV FLUIDS, IV ANTIBIOTICS, SURGICAL CONSULT, CONTINUE TO MONITOR
[2018-09-30] MEDS ORDERED: DIPRIVAN VIAL ONE (09:08)
[2018-09-30] MEDS ORDERED: VERSED ONE (09:08)
[2018-09-30] MEDS ORDERED: XYLOCAINE 1 % (PLAIN) ONE ×2 (09:08→10:13)
[2018-09-30] MEDS ORDERED: LR 1000 ML IV 1,000 ML ONE (09:40)
[2018-09-30] MEDS ORDERED: FENTANYL INJ 100 mcg ONE (10:09)
[2018-09-30] MEDS ORDERED: BACITRACIN VIAL ONE (10:29)
--- NOTE | 2018-09-30 11:01 | OR.IMMED ---
Immediate Post-Op Note - Immediate Post-Op Note Pre-Op Diagnosis: infected ulcer with abscess Rt hip . confinement to bed . Post-Op Diagnosis: 8x6 cm infected ulcer with abscess formation rt hip Procedure: debridement Rt hip ulcer and drainage of abscess . Surgeon/Mill Labor Supervisor: janeen Findings: as above Complications: none Condition: Stable (to change dressing daily and as needed .. resume diet and all meds as ordered)
[2018-09-30] MEDS: ZINC SULFATE PO SCH (11:15)
[2018-09-30] MEDS: NEURONTIN CAP 300 MG PO SCH ×4 (11:15→20:33)
[2018-09-30] MEDS: SENOKOT PO SCH ×2 (11:15→20:31)
[2018-09-30] MEDS: HEMOCYTE-PLUS PO SCH (11:15)
[2018-09-30] MEDS: FLONASE NASAL SPRAY ENOSTRIL SCH (11:15)
[2018-09-30] MEDS: NAMENDA TAB 10 MG PO SCH ×2 (11:15→20:32)
[2018-09-30] MEDS: VITAMIN C PO SCH ×2 (11:15→20:33)
[2018-09-30] MEDS: COLACE CAP 100 MG PO SCH ×2 (11:15→20:32)
[2018-09-30] MEDS: TAB-A-VITE PO SCH (11:15)
[2018-09-30] MEDS: LASIX PO SCH (11:15)
[2018-09-30] MEDS: PROTONIX TAB 40 MG PO SCH (11:15)
[2018-09-30] MEDS: DEPAKOTE D.R. TAB PO SCH ×2 (11:15→20:32)
[2018-09-30] MEDS: EMPAGLIFLOZIN 10 MG PO SCH (11:15)
[2018-09-30] MEDS: COZAAR PO SCH (11:15)
[2018-09-30] MEDS: ARTIFICIAL TEARS DROPS OP SCH ×2 (11:20→20:41)
[2018-09-30] MEDS ORDERED: ZOFRAN INJ 4 MG VIAL IVP PRN (12:27)
[2018-09-30] MEDS ORDERED: BENADRYL INJ 50 MG VIAL IVP PRN (12:27)
[2018-09-30] MEDS ORDERED: NS IRRIGATION 1000 ML ONE (14:14)
[2018-09-30] MEDS ORDERED: DEPAKOTE D.R. TAB ONE (20:18)
[2018-09-30] MEDS ORDERED: LEXAPRO ONE (20:19)
[2018-09-30] MEDS: ZOCOR TAB 20 MG PO SCH (20:31)
[2018-09-30] MEDS: LEXAPRO PO SCH (20:32)
[2018-09-30] MEDS: ARICEPT TAB 5 MG PO SCH (20:33)
[2018-09-30] MEDS: SNACK - Diabetic Appropriate PO SCH (20:40)
[2018-10-01] MEDS: PERCOCET TAB 5/325 MG PO PRN ×3 (04:00→20:40)
[2018-10-01 05:22] LABS: BASOPHILS % (AUTO) 0.3 % (0.2-1.0); EOSINOPHILS # (AUTO) 0.2 x10^3/uL (0.0-0.2); EOSINOPHILS % (AUTO) 2.6 % (0.9-2.9); HEMOGLOBIN 12.9 g/dL (12.0-16.0); LYMPHOCYTES # (AUTO) 2.2 X10^3/uL (1.3-2.9); LYMPHOCYTES % (AUTO) 35.8 % (21.0-51.0); MEAN CORPUSCULAR HEMOGLOBIN 32.7 pg (27.0-34.0); MEAN CORPUSCULAR HGB CONC 33.9 g/dL (33.0-35.0); MEAN CORPUSCULAR VOLUME 96.5 fL (80.0-100.0); MEAN PLATELET VOLUME 7.8 fL (7.4-11.0); MONOCYTES # (AUTO) 0.4 x10^3/uL (0.3-0.8); NEUTROPHILS # (AUTO) 3.3 x10^3/uL (2.2-4.8); NEUTROPHILS % (AUTO) 54.3 % (42.0-75.0); PLATELET COUNT 191 X10^3/uL (150.0-450.0); RED BLOOD COUNT 3.94 X10^6/uL (3.5-5.4); RED CELL DISTRIBUTION WIDTH 12.7 % (11.6-16.5); WHITE BLOOD COUNT 6.1 X10^3/uL (3.6-10.0)
[2018-10-01] MEDS: ZOSYN VIAL 3.375 GRAMS 3.375 G in NS 100 ML IV + SPIKE MINIBAG* 100 ML IV SCH ×3 (05:26→22:23)
[2018-10-01] MEDS: NS 1000 ML 1,000 ML IV SCH ×3 (05:26→20:48)
[2018-10-01 05:41] LABS: ALANINE AMINOTRANSFERASE 9 Units/L (12-78); ALBUMIN 2.3 g/dL (3.4-5.0); ALKALINE PHOSPHATASE 93 Units/L (46-116); ASPARTATE AMINO TRANSFERASE 14 Units/L (15-37); BLOOD UREA NITROGEN 13 mg/dL (7-18); CARBON DIOXIDE 28.6 mmol/L (21-32); CHLORIDE 109 mmol/L (98-107); COR CA(FOR HYPOALB) 9.4 mg/dL (8.5-10.1); COR NA(FOR HYPERGLY) 146 mmol/L (136-145); SODIUM 145 mmol/L (136-145); TOTAL PROTEIN 6.3 g/dL (6.4-8.2); eGFR NON BLACK RACES > 60 (>60)
[2018-10-01] MEDS: ULTRAM PO PRN (06:10)
--- NOTE | 2018-10-01 09:04 | DR.PROGNOT ---
Hospital Progress Notes - Progress Note for Day of: Progress Note Date: 10/01/18 - Past Medical Family Social History Past Med/Fam/Surg Hx: No changes since H&P Allergies: Allergies azithromycin Allergy (Verified 11/13/17 23:23) ciprofloxacin Allergy (Verified 11/13/17 23:23) codeine Allergy (Verified 11/13/17 23:23) Corticosteroids (Glucocorticoids) Allergy (Verified 11/13/17 23:23) levofloxacin Allergy (Verified 11/13/17 23:23) morphine Allergy (Verified 11/13/17 23:23) niacin Allergy (Verified 11/13/17 23:23) promethazine Allergy (Verified 11/13/17 23:23) topiramate Allergy (Verified 11/13/17 23:23) - Review Of Systems ROS: No change since H&P - Vital Signs Vital Signs: Temperature 98.0 F Pulse Rate [Left Radial] 68 Pulse Rate 71 Respiratory Rate 18 Blood Pressure [Right Arm] 125/57 Blood Pressure [Left Arm] 124/62 Blood Pressure 142/65 O2 Sat by Pulse Oximetry 94 - Physical Exam Oriented: Normal Eyes: Normal Ear: Normal Nose: Normal Throat: Normal Respiratory: Generalized, Diminished Cardiovascular: Normal. negative: S3, S4, Murmur : Normal GI:Auscultation: Normal GI:Palpation: Normal GI: Tenderness: Normal Skin: Other (Rt hip ulcer ( s/p debridement ) with less erythema and moderate drainage [id number] ) Musculoskeletal: Normal Psychiatric: Normal Mood Description: Calm Affect: Normal Speech Pattern: Clear, Appropriate - Laboratory and Diagnostics Result Diagrams: 10/01/18 04:31 10/01/18 04:31 Labs: 09/30/18 10:35 Hip - Right Gram Stain - Final 09/28/18 21:01 Blood Blood Culture - Preliminary 09/28/18 21:04 Blood Blood Culture - Preliminary 09/29/18 10:32 Hip - Right Gram Stain - Final 09/29/18 10:32 Hip - Right Wound Culture - Preliminary Laboratory WBC 6.1 X10^3/uL (3.6-10.0) 10/01/18 04:31 RBC 3.94 X10^6/uL (3.5-5.4) 10/01/18 04:31 Hgb 12.9 g/dL (12.0-16.0) 10/01/18 04:31 Hct 38.0 % (36.0-47.0) 10/01/18 04:31 MCV 96.5 fL (80.0-100.0) 10/01/18 04:31 MCH 32.7 pg (27.0-34.0) 10/01/18 04:31 MCHC 33.9 g/dL (33.0-35.0) 10/01/18 04:31 RDW 12.7 % (11.6-16.5) 10/01/18 04:31 Plt Count 191 X10^3/uL (150.0-450.0) 10/01/18 04:31 MPV 7.8 fL (7.4-11.0) 10/01/18 04:31 Neut % (Auto) 54.3 % (42.0-75.0) 10/01/18 04:31 Lymph % (Auto) 35.8 % (21.0-51.0) 10/01/18 04:31 [place] % (Auto) 7.0 % (0.0-13.0) 10/01/18 04:31 Eos % (Auto) 2.6 % (0.9-2.9) 10/01/18 04:31 Baso % (Auto) 0.3 % (0.2-1.0) 10/01/18 04:31 Neut # (Auto) 3.3 x10^3/uL (2.2-4.8) 10/01/18 04:31 Lymph # (Auto) 2.2 X10^3/uL (1.3-2.9) 10/01/18 04:31 [place] # (Auto) 0.4 x10^3/uL (0.3-0.8) 10/01/18 04:31 Eos # (Auto) 0.2 x10^3/uL (0.0-0.2) 10/01/18 04:31 Baso # (Auto) 0.0 X10^3/uL (0.0-0.1) 10/01/18 04:31 Absolute Nucleated RBC 0.0 /100WBC 10/01/18 04:31 Sodium 145 mmol/L (136-145) 10/01/18 04:31 Corrected Sodium 146 mmol/L (136-145) H 10/01/18 04:31 Potassium 4.1 mmol/L (3.5-5.1) 10/01/18 04:31 Chloride 109 mmol/L (98-107) H 10/01/18 04:31 Carbon Dioxide 28.6 mmol/L (21-32) 10/01/18 04:31 BUN 13 mg/dL (7-18) 10/01/18 04:31 Creatinine 0.70 mg/dL (0.55-1.02) 10/01/18 04:31 Est GFR (MDRD) Af Amer > 60 (>60) 10/01/18 04:31 Est GFR (MDRD) Non-Af > 60 (>60) 10/01/18 04:31 Glucose 134 mg/dL (65-99) H 10/01/18 04:31 Calcium 8.0 mg/dL (8.5-10.1) L 10/01/18 04:31 Corrected Calcium 9.4 mg/dL (8.5-10.1) 10/01/18 04:31 Magnesium 2.2 mg/dL (1.7-2.9) 09/29/18 04:00 Total Bilirubin 0.20 mg/dL (0.2-1.0) 10/01/18 04:31 AST 14 Units/L (15-37) L 10/01/18 04:31 ALT 9 Units/L (12-78) L 10/01/18 04:31 Alkaline Phosphatase 93 Units/L (46-116) 10/01/18 04:31 Total Protein 6.3 g/dL (6.4-8.2) L 10/01/18 04:31 Albumin 2.3 g/dL (3.4-5.0) L 10/01/18 04:31 Globulin 4.0 g/dL (2.5-4.5) 10/01/18 04:31 Albumin/Globulin Ratio 0.6 Ratio (1.1-2.1) L 10/01/18 04:31 Tissue Pathology To follow 09/30/18 10:35 - Assessment and Plan 1: infected Rt hip becubitus ulcer with abscess formation , s/p debridement. limited ambulation . same local care , IV ATB and future wound vac . - Problem Patient Problems: Patient Problems Cellulitis of right hip (Acute) L03.115
[2018-10-01] MEDS: NEURONTIN CAP 300 MG PO SCH ×4 (09:19→20:42)
[2018-10-01] MEDS: ZINC SULFATE PO SCH (09:19)
[2018-10-01] MEDS: NAMENDA TAB 10 MG PO SCH ×2 (09:19→20:41)
[2018-10-01] MEDS: TAB-A-VITE PO SCH (09:19)
[2018-10-01] MEDS: COZAAR PO SCH (09:19)
[2018-10-01] MEDS: COLACE CAP 100 MG PO SCH ×2 (09:20→20:42)
[2018-10-01] MEDS: PROTONIX TAB 40 MG PO SCH (09:20)
[2018-10-01] MEDS: HEMOCYTE-PLUS PO SCH (09:20)
[2018-10-01] MEDS: VITAMIN C PO SCH ×2 (09:20→20:41)
[2018-10-01] MEDS: FLONASE NASAL SPRAY ENOSTRIL SCH (09:21)
[2018-10-01] MEDS: LASIX PO SCH (09:21)
[2018-10-01] MEDS: ARTIFICIAL TEARS DROPS OP SCH ×2 (09:33→20:48)
[2018-10-01] MEDS: SENOKOT PO SCH ×2 (09:34→20:42)
[2018-10-01] MEDS: DEPAKOTE D.R. TAB PO SCH ×2 (09:34→20:42)
[2018-10-01] MEDS: EMPAGLIFLOZIN 10 MG PO SCH (09:35)
[2018-10-01] MEDS ORDERED: BUTT CREAM (COMPOUND) ONE (12:12)
[2018-10-01] MEDS ORDERED: BUTT CREAM (COMPOUND) TOP PRN (12:46)
[2018-10-01] MEDS: NYSTATIN POWDER TOP SCH ×2 (13:45→20:48)
--- NOTE | 2018-10-01 15:18 | PCM.PROG ---
Progress Note - Progress Note for Day of Date of Exam: 09/30/18 - Subjective Subjective: WAS ADMITTED FOR RIGHT HIP CELLULITIS AND ABSCESS FORMATION. SHE IS STATUS POST I&D. TODAY, SHE IS ALERT AND ORIENTED, LYING IN BED WITH EYES CLOSED ON MORNING ROUNDS. SHE AWAKENS AND RESPONDS TO VERBAL STIMULI. SHE CONTINUES WITH PAIN TO THE RIGHT HIP. THERE CONTINUES TO BE ERYTH JAYY AND WHAT APPEARS TO BE A POSSIBLE ABSCESS FORMATION. HER VITALS THIS MORNING ARE: 98.3-90-18-90%-122/60. LABS WERE OBTIAINED. ABNORMAL LAB VALUES INCLUDE THE FOLLOWING: GLUCOSE 162, CALCIUM 8.0, AST 13, ALT 11, ALBUMIN 2.6. BLOOD AND HIP WOUND CULTURES ARE PENDING. SHE IS CURRENTLY RECEIVING IV FLUIDS AND ZOSYN 3.375G IV TID. HOME MEDICATIONS WERE RESUMED. WE WILL CONTINUE WITH CURRENT PLAN OF CARE TODAY. OTHERWISE, WE PLAN TO FOLLOW UP WITH AM LABS AND CONTINUE TO MONITOR. - Past Medical Family Social History Past Med/Fam/Surg Hx: No changes since H&P Allergies: Allergies azithromycin Allergy (Verified 11/13/17 23:23) ciprofloxacin Allergy (Verified 11/13/17 23:23) codeine Allergy (Verified 11/13/17 23:23) Corticosteroids (Glucocorticoids) Allergy (Verified 11/13/17 23:23) levofloxacin Allergy (Verified 11/13/17 23:23) morphine Allergy (Verified 11/13/17 23:23) niacin Allergy (Verified 11/13/17 23:23) promethazine Allergy (Verified 11/13/17 23:23) topiramate Allergy (Verified 11/13/17 23:23) - Review of Systems ROS: No change since H&P - Vital Signs and I&O's Vital Signs: Temperature 99.0 F Pulse Rate [Left Radial] 69 Pulse Rate 73 Respiratory Rate 20 Blood Pressure [Right Arm] 124/61 Blood Pressure [Left Arm] 124/62 Blood Pressure 142/65 O2 Sat by Pulse Oximetry 92 Intake and Output: Intake & Output 09/29/18 09/30/18 10/01/18 10/02/18 11:59 11:59 11:59 11:59 Intake Total 2023 1520 / 1520 2032 920 / 920 Output Total 430 / 430 Balance 2024 / 2024 1090 / 1090 2033 / 2033 920 / 920 - Physical Exam Oriented: Normal Eyes: Normal Ear: Normal Nose: Normal Throat: Normal Respiratory: Generalized, Diminished Cardiovascular: Normal. negative: S3, S4, Murmur : Normal Auscultation: Bowel Sounds: Normal Tenderness: Normal Skin: Other (Rt hip ulcer ( s/p debridement ) with less erythema and moderate drainage [id number] ) Musculoskeletal: Normal Psychiatric: Normal Mood Description: Calm Affect: Normal Speech Pattern: Clear, Appropriate - Laboratory and Diagnostics Result Diagrams: 10/01/18 04:31 10/01/18 04:31 Labs: 09/30/18 10:35 Hip - Right Gram Stain - Final 09/30/18 10:35 Hip - Right Wound Culture - Preliminary 09/29/18 10:32 Hip - Right Gram Stain - Final 09/29/18 10:32 Hip - Right Wound Culture - Final Methicillin Resis Staph Aureus 09/28/18 21:01 Blood Blood Culture - Preliminary 09/28/18 21:04 Blood Blood Culture - Preliminary Laboratory WBC 6.1 X10^3/uL (3.6-10.0) 10/01/18 04:31 RBC 3.94 X10^6/uL (3.5-5.4) 10/01/18 04:31 Hgb 12.9 g/dL (12.0-16.0) 10/01/18 04:31 Hct 38.0 % (36.0-47.0) 10/01/18 04:31 MCV 96.5 fL (80.0-100.0) 10/01/18 04:31 MCH 32.7 pg (27.0-34.0) 10/01/18 04:31 MCHC 33.9 g/dL (33.0-35.0) 10/01/18 04:31 RDW 12.7 % (11.6-16.5) 10/01/18 04:31 Plt Count 191 X10^3/uL (150.0-450.0) 10/01/18 04:31 MPV 7.8 fL (7.4-11.0) 10/01/18 04:31 Neut % (Auto) 54.3 % (42.0-75.0) 10/01/18 04:31 Lymph % (Auto) 35.8 % (21.0-51.0) 10/01/18 04:31 [place] % (Auto) 7.0 % (0.0-13.0) 10/01/18 04:31 Eos % (Auto) 2.6 % (0.9-2.9) 10/01/18 04:31 Baso % (Auto) 0.3 % (0.2-1.0) 10/01/18 04:31 Neut # (Auto) 3.3 x10^3/uL (2.2-4.8) 10/01/18 04:31 Lymph # (Auto) 2.2 X10^3/uL (1.3-2.9) 10/01/18 04:31 [place] # (Auto) 0.4 x10^3/uL (0.3-0.8) 10/01/18 04:31 Eos # (Auto) 0.2 x10^3/uL (0.0-0.2) 10/01/18 04:31 Baso # (Auto) 0.0 X10^3/uL (0.0-0.1) 10/01/18 04:31 Absolute Nucleated RBC 0.0 /100WBC 10/01/18 04:31 Sodium 145 mmol/L (136-145) 10/01/18 04:31 Corrected Sodium 146 mmol/L (136-145) H 10/01/18 04:31 Potassium 4.1 mmol/L (3.5-5.1) 10/01/18 04:31 Chloride 109 mmol/L (98-107) H 10/01/18 04:31 Carbon Dioxide 28.6 mmol/L (21-32) 10/01/18 04:31 BUN 13 mg/dL (7-18) 10/01/18 04:31 Creatinine 0.70 mg/dL (0.55-1.02) 10/01/18 04:31 Est GFR (MDRD) Af Amer > 60 (>60) 10/01/18 04:31 Est GFR (MDRD) Non-Af > 60 (>60) 10/01/18 04:31 Glucose 134 mg/dL (65-99) H 10/01/18 04:31 Calcium 8.0 mg/dL (8.5-10.1) L 10/01/18 04:31 Corrected Calcium 9.4 mg/dL (8.5-10.1) 10/01/18 04:31 Magnesium 2.2 mg/dL (1.7-2.9) 09/29/18 04:00 Total Bilirubin 0.20 mg/dL (0.2-1.0) 10/01/18 04:31 AST 14 Units/L (15-37) L 10/01/18 04:31 ALT 9 Units/L (12-78) L 10/01/18 04:31 Alkaline Phosphatase 93 Units/L (46-116) 10/01/18 04:31 Total Protein 6.3 g/dL (6.4-8.2) L 10/01/18 04:31 Albumin 2.3 g/dL (3.4-5.0) L 10/01/18 04:31 Globulin 4.0 g/dL (2.5-4.5) 10/01/18 04:31 Albumin/Globulin Ratio 0.6 Ratio (1.1-2.1) L 10/01/18 04:31 Tissue Pathology To follow 09/30/18 10:35 - Plan (1) Cellulitis of right hip Status: Acute Plan: IV FLUIDS, IV ANTIBIOTICS, WOUND CARE, CONTINUE TO MONITOR
[2018-10-01] MEDS: VIBRAMYCIN 100 MG in D5W 250 ML IV 250 ML IV SCH (15:31)
[2018-10-01] MEDS ORDERED: DEPAKOTE D.R. TAB ONE (19:24)
[2018-10-01] MEDS ORDERED: LEXAPRO ONE (19:25)
[2018-10-01] MEDS: ZOCOR TAB 20 MG PO SCH (20:42)
[2018-10-01] MEDS: ARICEPT TAB 5 MG PO SCH (20:42)
[2018-10-01] MEDS: LEXAPRO PO SCH (20:43)
[2018-10-01] MEDS: SNACK - Diabetic Appropriate PO SCH (20:48)
[2018-10-02] MEDS: PERCOCET TAB 5/325 MG PO PRN ×2 (04:26→20:39)
[2018-10-02 05:13] LABS: BASOPHILS % (AUTO) 0.5 % (0.2-1.0); EOSINOPHILS # (AUTO) 0.2 x10^3/uL (0.0-0.2); EOSINOPHILS % (AUTO) 3.7 % (0.9-2.9); HEMATOCRIT 39.6 % (36.0-47.0); HEMOGLOBIN 13.2 g/dL (12.0-16.0); LYMPHOCYTES # (AUTO) 2.1 X10^3/uL (1.3-2.9); LYMPHOCYTES % (AUTO) 41.4 % (21.0-51.0); MEAN CORPUSCULAR HEMOGLOBIN 32.4 pg (27.0-34.0); MEAN CORPUSCULAR HGB CONC 33.4 g/dL (33.0-35.0); MEAN CORPUSCULAR VOLUME 96.8 fL (80.0-100.0); MEAN PLATELET VOLUME 7.5 fL (7.4-11.0); MONOCYTES # (AUTO) 0.4 x10^3/uL (0.3-0.8); MONOCYTES % (AUTO) 6.9 % (0.0-13.0); NEUTROPHILS # (AUTO) 2.5 x10^3/uL (2.2-4.8); NEUTROPHILS % (AUTO) 47.5 % (42.0-75.0); PLATELET COUNT 196 X10^3/uL (150.0-450.0); RED BLOOD COUNT 4.09 X10^6/uL (3.5-5.4); RED CELL DISTRIBUTION WIDTH 12.6 % (11.6-16.5); WHITE BLOOD COUNT 5.2 X10^3/uL (3.6-10.0)
[2018-10-02 05:15] LABS: ALANINE AMINOTRANSFERASE 8 Units/L (12-78); ALBUMIN 2.5 g/dL (3.4-5.0); ALKALINE PHOSPHATASE 89 Units/L (46-116); ASPARTATE AMINO TRANSFERASE 13 Units/L (15-37); BLOOD UREA NITROGEN 8 mg/dL (7-18); CALCIUM 8.1 mg/dL (8.5-10.1); CARBON DIOXIDE 31.6 mmol/L (21-32); CHLORIDE 109 mmol/L (98-107); COR CA(FOR HYPOALB) 9.3 mg/dL (8.5-10.1); COR NA(FOR HYPERGLY) 147 mmol/L (136-145); CREATININE 0.71 mg/dL (0.55-1.02); SODIUM 145 mmol/L (136-145); TOTAL PROTEIN 6.5 g/dL (6.4-8.2); eGFR NON BLACK RACES > 60 (>60)
[2018-10-02] MEDS: NS 1000 ML 1,000 ML IV SCH ×3 (05:17→20:42)
[2018-10-02] MEDS: ZOSYN VIAL 3.375 GRAMS 3.375 G in NS 100 ML IV + SPIKE MINIBAG* 100 ML IV SCH ×3 (05:17→22:00)
[2018-10-02] MEDS: HumuLIN R SUBCUT PRN ×2 (05:47→12:01)
--- NOTE | 2018-10-02 08:53 | PCM.PROG ---
Progress Note - Progress Note for Day of Date of Exam: 10/01/18 - Subjective Subjective: WAS ADMITTED FOR RIGHT HIP CELLULITIS AND ABSCESS FORMATION. SHE IS STATUS POST I&D. TODAY, SHE IS ALERT AND ORIENTED, LYING IN BED WITH EYES CLOSED ON MORNING ROUNDS. SHE AWAKENS AND RESPONDS TO VERBAL STIMULI. SHE CONTINUES WITH PAIN TO THE RIGHT HIP. THERE CONTINUES TO BE ERYTH JAYY AND DRAINAGE FROM WOUND TODAY. HER VITALS THIS MORNING ARE: 98.30-68-18-94%-125/57. LABS WERE OBTIAINED. ABNORMAL LAB VALUES INCLUDE THE FOLLOWING: CHLORIDE 109, GLUCOSE 134, CALCIUM 8.0, AST 14, ALT 9, TOTAL PROTEIN 6.3, ALBUMIN 2.3. BLOOD CULTURES ARE PENDING. WOUND CULTURES ARE POSITIVE FOR G RADHA OF MRSA. SHE IS CURRENTLY RECEIVING IV FLUIDS AND ZOSYN 3.375G IV TID AND HOME MEDICATIONS WERE RESUMED. TODAY, WE WILL ADD DOXYCYCLINE 100MG IV Q12H. OTHERWISE, WE WILL CONTINUE WITH CURRENT PLAN OF CARE TODAY. WE PLAN TO FOLLOW UP WITH AM LABS AND CONTINUE TO MONITOR. - Past Medical Family Social History Past Med/Fam/Surg Hx: No changes since H&P Allergies: Allergies azithromycin Allergy (Verified 11/13/17 23:23) ciprofloxacin Allergy (Verified 11/13/17 23:23) codeine Allergy (Verified 11/13/17 23:23) Corticosteroids (Glucocorticoids) Allergy (Verified 11/13/17 23:23) levofloxacin Allergy (Verified 11/13/17 23:23) morphine Allergy (Verified 11/13/17 23:23) niacin Allergy (Verified 11/13/17 23:23) promethazine Allergy (Verified 11/13/17 23:23) topiramate Allergy (Verified 11/13/17 23:23) - Review of Systems ROS: No change since H&P - Vital Signs and I&O's Vital Signs: Temperature 97.9 F Pulse Rate [Left Radial] 65 Pulse Rate 62 Respiratory Rate 18 Blood Pressure [Right Arm] 133/76 Blood Pressure [Left Arm] 124/62 Blood Pressure 142/65 O2 Sat by Pulse Oximetry 92 Intake and Output: Intake & Output 09/29/18 09/30/18 10/01/18 10/02/18 11:59 11:59 11:59 11:59 Intake Total 2024 / 2024 1520 / 1520 2032 3877 / 3877 Output Total 430 / 430 Balance 2023 1090 / 1090 2032 1610 / 3877 - Physical Exam Oriented: Normal Eyes: Normal Ear: Normal Nose: Normal Throat: Normal Respiratory: Generalized, Diminished Cardiovascular: Normal. negative: S3, S4, Murmur : Normal Auscultation: Bowel Sounds: Normal Palpation: Normal Tenderness: Normal Skin: Other (Rt hip ulcer ( s/p debridement ) with less erythema and moderate drainage [id number] ) Musculoskeletal: Normal Psychiatric: Normal Mood Description: Calm Affect: Normal Speech Pattern: Clear, Appropriate - Laboratory and Diagnostics Result Diagrams: 10/02/18 04:45 10/02/18 04:45 Labs: 09/30/18 10:35 Hip - Right Gram Stain - Final 09/30/18 10:35 Hip - Right Wound Culture - Final Methicillin Resis Staph Aureus 09/29/18 10:32 Hip - Right Gram Stain - Final 09/29/18 10:32 Hip - Right Wound Culture - Final Methicillin Resis Staph Aureus 09/28/18 21:01 Blood Blood Culture - Preliminary 09/28/18 21:04 Blood Blood Culture - Preliminary Laboratory WBC 5.2 X10^3/uL (3.6-10.0) 10/02/18 04:45 RBC 4.09 X10^6/uL (3.5-5.4) 10/02/18 04:45 Hgb 13.2 g/dL (12.0-16.0) 10/02/18 04:45 Hct 39.6 % (36.0-47.0) 10/02/18 04:45 MCV 96.8 fL (80.0-100.0) 10/02/18 04:45 MCH 32.4 pg (27.0-34.0) 10/02/18 04:45 MCHC 33.4 g/dL (33.0-35.0) 10/02/18 04:45 RDW 12.6 % (11.6-16.5) 10/02/18 04:45 Plt Count 196 X10^3/uL (150.0-450.0) 10/02/18 04:45 MPV 7.5 fL (7.4-11.0) 10/02/18 04:45 Neut % (Auto) 47.5 % (42.0-75.0) 10/02/18 04:45 Lymph % (Auto) 41.4 % (21.0-51.0) 10/02/18 04:45 [place] % (Auto) 6.9 % (0.0-13.0) 10/02/18 04:45 Eos % (Auto) 3.7 % (0.9-2.9) H 10/02/18 04:45 Baso % (Auto) 0.5 % (0.2-1.0) 10/02/18 04:45 Neut # (Auto) 2.5 x10^3/uL (2.2-4.8) 10/02/18 04:45 Lymph # (Auto) 2.1 X10^3/uL (1.3-2.9) 10/02/18 04:45 [place] # (Auto) 0.4 x10^3/uL (0.3-0.8) 10/02/18 04:45 Eos # (Auto) 0.2 x10^3/uL (0.0-0.2) 10/02/18 04:45 Baso # (Auto) 0.0 X10^3/uL (0.0-0.1) 10/02/18 04:45 Absolute Nucleated RBC 0.1 /100WBC 10/02/18 04:45 Sodium 145 mmol/L (136-145) 10/02/18 04:45 Corrected Sodium 147 mmol/L (136-145) H 10/02/18 04:45 Potassium 3.9 mmol/L (3.5-5.1) 10/02/18 04:45 Chloride 109 mmol/L (98-107) H 10/02/18 04:45 Carbon Dioxide 31.6 mmol/L (21-32) 10/02/18 04:45 BUN 8 mg/dL (7-18) 10/02/18 04:45 Creatinine 0.71 mg/dL (0.55-1.02) 10/02/18 04:45 Est GFR (MDRD) Af Amer > 60 (>60) 10/02/18 04:45 Est GFR (MDRD) Non-Af > 60 (>60) 10/02/18 04:45 Glucose 182 mg/dL (65-99) H 10/02/18 04:45 Calcium 8.1 mg/dL (8.5-10.1) L 10/02/18 04:45 Corrected Calcium 9.3 mg/dL (8.5-10.1) 10/02/18 04:45 Magnesium 2.2 mg/dL (1.7-2.9) 09/29/18 04:00 Total Bilirubin 0.30 mg/dL (0.2-1.0) 10/02/18 04:45 AST 13 Units/L (15-37) L 10/02/18 04:45 ALT 8 Units/L (12-78) L 10/02/18 04:45 Alkaline Phosphatase 89 Units/L (46-116) 10/02/18 04:45 Total Protein 6.5 g/dL (6.4-8.2) 10/02/18 04:45 Albumin 2.5 g/dL (3.4-5.0) L 10/02/18 04:45 Globulin 4.0 g/dL (2.5-4.5) 10/02/18 04:45 Albumin/Globulin Ratio 0.6 Ratio (1.1-2.1) L 10/02/18 04:45 Tissue Pathology To follow 09/30/18 10:35 - Plan (1) Cellulitis of right hip Status: Acute Plan: IV FLUIDS, IV ZOSYN ,IV DOXY, WOUND CARE, CONTINUE TO MONITOR
[2018-10-02] MEDS: COZAAR PO SCH (09:01)
[2018-10-02] MEDS: DEPAKOTE D.R. TAB PO SCH ×2 (09:02→20:41)
[2018-10-02] MEDS: COLACE CAP 100 MG PO SCH ×2 (09:02→20:40)
[2018-10-02] MEDS: ZINC SULFATE PO SCH (09:02)
[2018-10-02] MEDS: PROTONIX TAB 40 MG PO SCH (09:02)
[2018-10-02] MEDS: NAMENDA TAB 10 MG PO SCH ×2 (09:02→20:40)
[2018-10-02] MEDS: TAB-A-VITE PO SCH (09:03)
[2018-10-02] MEDS: LASIX PO SCH (09:03)
[2018-10-02] MEDS: HEMOCYTE-PLUS PO SCH (09:03)
[2018-10-02] MEDS: NEURONTIN CAP 300 MG PO SCH ×4 (09:03→20:40)
[2018-10-02] MEDS: VIBRAMYCIN 100 MG in D5W 250 ML IV 250 ML IV SCH ×2 (09:03→20:43)
[2018-10-02] MEDS: ARTIFICIAL TEARS DROPS OP SCH ×2 (09:04→20:41)
[2018-10-02] MEDS: SENOKOT PO SCH ×2 (09:06→20:41)
[2018-10-02] MEDS: NYSTATIN POWDER TOP SCH ×2 (09:08→20:43)
[2018-10-02] MEDS: VITAMIN C PO SCH ×2 (09:09→20:40)
[2018-10-02] MEDS: FLONASE NASAL SPRAY ENOSTRIL SCH (09:09)
[2018-10-02] MEDS: ULTRAM PO PRN (09:16)
[2018-10-02] MEDS: EMPAGLIFLOZIN 10 MG PO SCH (13:44)
[2018-10-02] MEDS ORDERED: XOPENEX 1.25 MG/3 ML NEBULE NEB SCH (14:00)
--- NOTE | 2018-10-02 14:05 | DR.PROGNOT ---
Hospital Progress Notes - Progress Note for Day of: Progress Note Date: 10/02/18 - Chief Complaint Chief Complaint: dreessing was changed and packing was removed and repacked . much better with less cellulitis . no necrosis or abscess formation . culture is positive for MRSA . - Past Medical Family Social History Past Med/Fam/Surg Hx: No changes since H&P Allergies: Allergies azithromycin Allergy (Verified 11/13/17 23:23) ciprofloxacin Allergy (Verified 11/13/17 23:23) codeine Allergy (Verified 11/13/17 23:23) Corticosteroids (Glucocorticoids) Allergy (Verified 11/13/17 23:23) levofloxacin Allergy (Verified 11/13/17 23:23) morphine Allergy (Verified 11/13/17 23:23) niacin Allergy (Verified 11/13/17 23:23) promethazine Allergy (Verified 11/13/17 23:23) topiramate Allergy (Verified 11/13/17 23:23) - Review Of Systems ROS: No change since H&P - Vital Signs Vital Signs: Temperature 97.6 F Pulse Rate [Left Radial] 62 Pulse Rate 62 Respiratory Rate 20 Blood Pressure [Right Arm] 135/61 Blood Pressure [Left Arm] 124/62 Blood Pressure 142/65 O2 Sat by Pulse Oximetry 97 - Physical Exam Oriented: Normal Eyes: Normal Ear: Normal Nose: Normal Throat: Normal Respiratory: Generalized, Diminished Cardiovascular: Normal. negative: S3, S4, Murmur : Normal GI:Auscultation: Normal GI:Palpation: Normal GI: Tenderness: Normal Skin: Other (Rt hip ulcer ( s/p debridement ) with less erythema and moderate drainage [id number] ) Musculoskeletal: Normal Psychiatric: Normal Mood Description: Calm Affect: Normal Speech Pattern: Clear, Appropriate - Laboratory and Diagnostics Result Diagrams: 10/02/18 04:45 10/02/18 04:45 Labs: 09/30/18 10:35 Hip - Right Gram Stain - Final 09/30/18 10:35 Hip - Right Wound Culture - Final Methicillin Resis Staph Aureus 09/29/18 10:32 Hip - Right Gram Stain - Final 09/29/18 10:32 Hip - Right Wound Culture - Final Methicillin Resis Staph Aureus 09/28/18 21:01 Blood Blood Culture - Preliminary 09/28/18 21:04 Blood Blood Culture - Preliminary Laboratory WBC 5.2 X10^3/uL (3.6-10.0) 10/02/18 04:45 RBC 4.09 X10^6/uL (3.5-5.4) 10/02/18 04:45 Hgb 13.2 g/dL (12.0-16.0) 10/02/18 04:45 Hct 39.6 % (36.0-47.0) 10/02/18 04:45 MCV 96.8 fL (80.0-100.0) 10/02/18 04:45 MCH 32.4 pg (27.0-34.0) 10/02/18 04:45 MCHC 33.4 g/dL (33.0-35.0) 10/02/18 04:45 RDW 12.6 % (11.6-16.5) 10/02/18 04:45 Plt Count 196 X10^3/uL (150.0-450.0) 10/02/18 04:45 MPV 7.5 fL (7.4-11.0) 10/02/18 04:45 Neut % (Auto) 47.5 % (42.0-75.0) 10/02/18 04:45 Lymph % (Auto) 41.4 % (21.0-51.0) 10/02/18 04:45 [place] % (Auto) 6.9 % (0.0-13.0) 10/02/18 04:45 Eos % (Auto) 3.7 % (0.9-2.9) H 10/02/18 04:45 Baso % (Auto) 0.5 % (0.2-1.0) 10/02/18 04:45 Neut # (Auto) 2.5 x10^3/uL (2.2-4.8) 10/02/18 04:45 Lymph # (Auto) 2.1 X10^3/uL (1.3-2.9) 10/02/18 04:45 [place] # (Auto) 0.4 x10^3/uL (0.3-0.8) 10/02/18 04:45 Eos # (Auto) 0.2 x10^3/uL (0.0-0.2) 10/02/18 04:45 Baso # (Auto) 0.0 X10^3/uL (0.0-0.1) 10/02/18 04:45 Absolute Nucleated RBC 0.1 /100WBC 10/02/18 04:45 Sodium 145 mmol/L (136-145) 10/02/18 04:45 Corrected Sodium 147 mmol/L (136-145) H 10/02/18 04:45 Potassium 3.9 mmol/L (3.5-5.1) 10/02/18 04:45 Chloride 109 mmol/L (98-107) H 10/02/18 04:45 Carbon Dioxide 31.6 mmol/L (21-32) 10/02/18 04:45 BUN 8 mg/dL (7-18) 10/02/18 04:45 Creatinine 0.71 mg/dL (0.55-1.02) 10/02/18 04:45 Est GFR (MDRD) Af Amer > 60 (>60) 10/02/18 04:45 Est GFR (MDRD) Non-Af > 60 (>60) 10/02/18 04:45 Glucose 182 mg/dL (65-99) H 10/02/18 04:45 Calcium 8.1 mg/dL (8.5-10.1) L 10/02/18 04:45 Corrected Calcium 9.3 mg/dL (8.5-10.1) 10/02/18 04:45 Magnesium 2.2 mg/dL (1.7-2.9) 09/29/18 04:00 Total Bilirubin 0.30 mg/dL (0.2-1.0) 10/02/18 04:45 AST 13 Units/L (15-37) L 10/02/18 04:45 ALT 8 Units/L (12-78) L 10/02/18 04:45 Alkaline Phosphatase 89 Units/L (46-116) 10/02/18 04:45 Total Protein 6.5 g/dL (6.4-8.2) 10/02/18 04:45 Albumin 2.5 g/dL (3.4-5.0) L 10/02/18 04:45 Globulin 4.0 g/dL (2.5-4.5) 10/02/18 04:45 Albumin/Globulin Ratio 0.6 Ratio (1.1-2.1) L 10/02/18 04:45 Tissue Pathology To follow 09/30/18 10:35 - Assessment and Plan 1: 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 ( s/p debridement ). same local c are , IV ATB and future wound vac . - Problem Patient Problems: Patient Problems Cellulitis of right hip (Acute) L03.115
--- NOTE | 2018-10-02 19:18 | PCM.PROG ---
Progress Note - Progress Note for Day of Date of Exam: 10/02/18 - Subjective Subjective: WAS ADMITTED FOR RIGHT HIP CELLULITIS AND ABSCESS FORMATION. SHE IS STATUS POST I&D. TODAY, SHE IS ALERT AND ORIENTED, LYING IN BED WITH EYES CLOSED ON MORNING ROUNDS. SHE AWAKENS AND RESPONDS TO VERBAL STIMULI. SHE CONTINUES WITH PAIN TO THE RIGHT HIP. THERE CONTINUES TO BE ERYTH JAYY, HOWEVER, IT HAS IMPROVED SINCE YESTERDAY. WOUND IS NOTED WITH PACKING. HER VITALS THIS MORNING ARE: 97.6-60-20-97%-118/55. LABS WERE OBTIAINED. ABNORMAL LAB VALUES INCLUDE THE FOLLOWING: SODIUM 147, CHLORIDE 109, GLUCOSE 182, CALCIUM 8.1, AST 13, ALT 8, ALBUMIN 2.5. BLOOD CULTURES ARE PENDING. WOUND CULTURES ARE POSITIVE FOR GROWTH OF MRSA. SHE IS CURRENTLY RECEIVING IV FLUIDS AND ZOSYN 3.375G IV TID, IV DOXYCYCLINE, AND HOME MEDICATIONS WERE RESUMED. OTHERWISE, WE WILL CONTINUE WITH CURRENT PLAN OF CARE TODAY. WE PLAN TO FOLLOW UP WITH AM LABS AND CONTINUE TO MONITOR. - Past Medical Family Social History Past Med/Fam/Surg Hx: No changes since H&P Allergies: Allergies azithromycin Allergy (Verified 11/13/17 23:23) ciprofloxacin Allergy (Verified 11/13/17 23:23) codeine Allergy (Verified 11/13/17 23:23) Corticosteroids (Glucocorticoids) Allergy (Verified 11/13/17 23:23) levofloxacin Allergy (Verified 11/13/17 23:23) morphine Allergy (Verified 11/13/17 23:23) niacin Allergy (Verified 11/13/17 23:23) promethazine Allergy (Verified 11/13/17 23:23) topiramate Allergy (Verified 11/13/17 23:23) - Review of Systems ROS: No change since H&P - Vital Signs and I&O's Vital Signs: Temperature 99.3 F Pulse Rate [Left Radial] 63 Pulse Rate 62 Respiratory Rate 20 Blood Pressure [Right Arm] 135/61 Blood Pressure [Left Arm] 114/56 Blood Pressure 142/65 O2 Sat by Pulse Oximetry 95 Intake and Output: Intake & Output 09/30/18 10/01/18 10/02/18 10/03/18 11:59 11:59 11:59 11:59 Intake Total 1520 / 1520 2032 / 2033 3877 / 3877 1830 / 1830 Output Total 430 / 430 Balance 1090 / 1090 2032 387 / 3876 - Physical Exam Oriented: Normal Eyes: Normal Ear: Normal Nose: Normal Throat: Normal Respiratory: Generalized, Diminished Cardiovascular: Normal. negative: S3, S4, Murmur : Normal Auscultation: Bowel Sounds: Normal Tenderness: Normal Skin: Other (Rt hip ulcer ( s/p debridement ) with less erythema and moderate d rainage [id number] ) Musculoskeletal: Normal Psychiatric: Normal Mood Description: Calm Affect: Normal Speech Pattern: Clear, Appropriate - Laboratory and Diagnostics Result Diagrams: 10/02/18 04:45 10/02/18 04:45 Labs: 09/30/18 10:35 Hip - Right Gram Stain - Final 09/30/18 10:35 Hip - Right Wound Culture - Final Methicillin Resis Staph Aureus 09/29/18 10:32 Hip - Right Gram Stain - Final 09/29/18 10:32 Hip - Right Wound Culture - Final Methicillin Resis Staph Aureus 09/28/18 21:01 Blood Blood Culture - Preliminary 09/28/18 21:04 Blood Blood Culture - Preliminary Laboratory WBC 5.2 X10^3/uL (3.6-10.0) 10/02/18 04:45 RBC 4.09 X10^6/uL (3.5-5.4) 10/02/18 04:45 Hgb 13.2 g/dL (12.0-16.0) 10/02/18 04:45 Hct 39.6 % (36.0-47.0) 10/02/18 04:45 MCV 96.8 fL (80.0-100.0) 10/02/18 04:45 MCH 32.4 pg (27.0-34.0) 10/02/18 04:45 MCHC 33.4 g/dL (33.0-35.0) 10/02/18 04:45 RDW 12.6 % (11.6-16.5) 10/02/18 04:45 Plt Count 196 X10^3/uL (150.0-450.0) 10/02/18 04:45 MPV 7.5 fL (7.4-11.0) 10/02/18 04:45 Neut % (Auto) 47.5 % (42.0-75.0) 10/02/18 04:45 Lymph % (Auto) 41.4 % (21.0-51.0) 10/02/18 04:45 [place] % (Auto) 6.9 % (0.0-13.0) 10/02/18 04:45 Eos % (Auto) 3.7 % (0.9-2.9) H 10/02/18 04:45 Baso % (Auto) 0.5 % (0.2-1.0) 10/02/18 04:45 Neut # (Auto) 2.5 x10^3/uL (2.2-4.8) 10/02/18 04:45 Lymph # (Auto) 2.1 X10^3/uL (1.3-2.9) 10/02/18 04:45 [place] # (Auto) 0.4 x10^3/uL (0.3-0.8) 10/02/18 04:45 Eos # (Auto) 0.2 x10^3/uL (0.0-0.2) 10/02/18 04:45 Baso # (Auto) 0.0 X10^3/uL (0.0-0.1) 10/02/18 04:45 Absolute Nucleated RBC 0.1 /100WBC 10/02/18 04:45 Sodium 145 mmol/L (136-145) 10/02/18 04:45 Corrected Sodium 147 mmol/L (136-145) H 10/02/18 04:45 Potassium 3.9 mmol/L (3.5-5.1) 10/02/18 04:45 Chloride 109 mmol/L (98-107) H 10/02/18 04:45 Carbon Dioxide 31.6 mmol/L (21-32) 10/02/18 04:45 BUN 8 mg/dL (7-18) 10/02/18 04:45 Creatinine 0.71 mg/dL (0.55-1.02) 10/02/18 04:45 Est GFR (MDRD) Af Amer > 60 (>60) 10/02/18 04:45 Est GFR (MDRD) Non-Af > 60 (>60) 10/02/18 04:45 Glucose 182 mg/dL (65-99) H 10/02/18 04:45 Calcium 8.1 mg/dL (8.5-10.1) L 10/02/18 04:45 Corrected Calcium 9.3 mg/dL (8.5-10.1) 10/02/18 04:45 Magnesium 2.2 mg/dL (1.7-2.9) 09/29/18 04:00 Total Bilirubin 0.30 mg/dL (0.2-1.0) 10/02/18 04:45 AST 13 Units/L (15-37) L 10/02/18 04:45 ALT 8 Units/L (12-78) L 10/02/18 04:45 Alkaline Phosphatase 89 Units/L (46-116) 10/02/18 04:45 Total Protein 6.5 g/dL (6.4-8.2) 10/02/18 04:45 Albumin 2.5 g/dL (3.4-5.0) L 10/02/18 04:45 Globulin 4.0 g/dL (2.5-4.5) 10/02/18 04:45 Albumin/Globulin Ratio 0.6 Ratio (1.1-2.1) L 10/02/18 04:45 Tissue Pathology To follow 09/30/18 10:35 - Plan (1) Cellulitis of right hip Status: Acute Plan: IV FLUIDS, IV ZOSYN ,IV DOXY, WOUND CARE, CONTINUE TO MONITOR
[2018-10-02] MEDS ORDERED: LEXAPRO ONE (20:16)
[2018-10-02] MEDS ORDERED: DEPAKOTE D.R. TAB ONE (20:17)
[2018-10-02] MEDS: LEXAPRO PO SCH (20:41)
[2018-10-02] MEDS: ARICEPT TAB 5 MG PO SCH (20:42)
[2018-10-02] MEDS: ZOCOR TAB 20 MG PO SCH (22:26)
[2018-10-02] MEDS: SNACK - Diabetic Appropriate PO SCH (22:26)
[2018-10-03] MEDS: ULTRAM PO PRN (00:43)
[2018-10-03] MEDS: NS 1000 ML 1,000 ML IV SCH ×5 (02:20→21:40)
[2018-10-03] MEDS: PERCOCET TAB 5/325 MG PO PRN ×2 (04:27→15:42)
[2018-10-03] MEDS: ZOSYN VIAL 3.375 GRAMS 3.375 G in NS 100 ML IV + SPIKE MINIBAG* 100 ML IV SCH ×3 (05:31→21:51)
[2018-10-03] MEDS: HumuLIN R SUBCUT PRN (05:33)
[2018-10-03 06:06] LABS: BASOPHILS % (AUTO) 0.6 % (0.2-1.0); EOSINOPHILS # (AUTO) 0.2 x10^3/uL (0.0-0.2); EOSINOPHILS % (AUTO) 3.5 % (0.9-2.9); HEMATOCRIT 39.7 % (36.0-47.0); HEMOGLOBIN 13.3 g/dL (12.0-16.0); LYMPHOCYTES # (AUTO) 2.3 X10^3/uL (1.3-2.9); LYMPHOCYTES % (AUTO) 35.7 % (21.0-51.0); MEAN CORPUSCULAR HEMOGLOBIN 32.4 pg (27.0-34.0); MEAN CORPUSCULAR HGB CONC 33.6 g/dL (33.0-35.0); MEAN CORPUSCULAR VOLUME 96.5 fL (80.0-100.0); MEAN PLATELET VOLUME 8.4 fL (7.4-11.0); MONOCYTES # (AUTO) 0.4 x10^3/uL (0.3-0.8); MONOCYTES % (AUTO) 6.8 % (0.0-13.0); NEUTROPHILS # (AUTO) 3.5 x10^3/uL (2.2-4.8); NEUTROPHILS % (AUTO) 53.4 % (42.0-75.0); PLATELET COUNT 214 X10^3/uL (150.0-450.0); RED BLOOD COUNT 4.12 X10^6/uL (3.5-5.4); RED CELL DISTRIBUTION WIDTH 12.7 % (11.6-16.5)
[2018-10-03 06:16] LABS: ALANINE AMINOTRANSFERASE 8 Units/L (12-78); ALBUMIN 2.5 g/dL (3.4-5.0); ALKALINE PHOSPHATASE 96 Units/L (46-116); ASPARTATE AMINO TRANSFERASE 11 Units/L (15-37); BLOOD UREA NITROGEN 7 mg/dL (7-18); CALCIUM 8.2 mg/dL (8.5-10.1); CARBON DIOXIDE 30.2 mmol/L (21-32); CHLORIDE 110 mmol/L (98-107); COR CA(FOR HYPOALB) 9.4 mg/dL (8.5-10.1); COR NA(FOR HYPERGLY) 148 mmol/L (136-145); CREATININE 0.69 mg/dL (0.55-1.02); SODIUM 146 mmol/L (136-145); TOTAL PROTEIN 6.3 g/dL (6.4-8.2); eGFR NON BLACK RACES > 60 (>60)
[2018-10-03 06:21] LABS: WHITE BLOOD COUNT 7.2 X10^3/uL (3.6-10.0)
[2018-10-03 06:22] LABS: PLATELET MORPHOLOGY COMMENT NORMAL (NORMAL)
[2018-10-03] MEDS: K-DUR TAB 20 MEQ PO PRN (06:29)
[2018-10-03] MEDS: NAMENDA TAB 10 MG PO SCH ×2 (09:12→21:47)
[2018-10-03] MEDS: ARTIFICIAL TEARS DROPS OP SCH ×2 (09:12→21:43)
[2018-10-03] MEDS: VITAMIN C PO SCH ×2 (09:12→21:46)
[2018-10-03] MEDS: COZAAR PO SCH (09:12)
[2018-10-03] MEDS: PROTONIX TAB 40 MG PO SCH (09:12)
[2018-10-03] MEDS: COLACE CAP 100 MG PO SCH ×2 (09:12→21:46)
[2018-10-03] MEDS: TAB-A-VITE PO SCH (09:12)
[2018-10-03] MEDS: DEPAKOTE D.R. TAB PO SCH ×2 (09:12→21:46)
[2018-10-03] MEDS: LASIX PO SCH (09:12)
[2018-10-03] MEDS: HEMOCYTE-PLUS PO SCH (09:12)
[2018-10-03] MEDS: VIBRAMYCIN 100 MG in D5W 250 ML IV 250 ML IV SCH ×2 (09:13→21:52)
[2018-10-03] MEDS: EMPAGLIFLOZIN 10 MG PO SCH (09:13)
[2018-10-03] MEDS: ZINC SULFATE PO SCH (09:13)
[2018-10-03] MEDS: NEURONTIN CAP 300 MG PO SCH ×4 (09:13→21:45)
[2018-10-03] MEDS: SENOKOT PO SCH ×2 (09:14→21:30)
[2018-10-03] MEDS: FLONASE NASAL SPRAY ENOSTRIL SCH (09:14)
[2018-10-03] MEDS: NYSTATIN POWDER TOP SCH ×2 (09:14→21:51)
[2018-10-03] MEDS: ZOFRAN TAB 4 MG PO PRN (09:44)
[2018-10-03] MEDS ORDERED: DEPAKOTE D.R. TAB ONE (21:00)
[2018-10-03] MEDS ORDERED: LEXAPRO ONE (21:02)
[2018-10-03] MEDS: SNACK - Diabetic Appropriate PO SCH (21:39)
[2018-10-03] MEDS: ARICEPT TAB 5 MG PO SCH (21:45)
[2018-10-03] MEDS: ZOCOR TAB 20 MG PO SCH (21:50)
[2018-10-03] MEDS: LEXAPRO PO SCH (21:53)
[2018-10-04] MEDS: NS 1000 ML 1,000 ML IV SCH ×2 (01:12→06:34)
[2018-10-04] MEDS: NAMENDA TAB 10 MG PO SCH ×2 (01:45→08:35)
[2018-10-04 05:16] LABS: BASOPHILS % (AUTO) 0.5 % (0.2-1.0); EOSINOPHILS # (AUTO) 0.2 x10^3/uL (0.0-0.2); EOSINOPHILS % (AUTO) 3.1 % (0.9-2.9); HEMATOCRIT 40.8 % (36.0-47.0); HEMOGLOBIN 13.6 g/dL (12.0-16.0); LYMPHOCYTES # (AUTO) 1.9 X10^3/uL (1.3-2.9); LYMPHOCYTES % (AUTO) 35.4 % (21.0-51.0); MEAN CORPUSCULAR HEMOGLOBIN 32.2 pg (27.0-34.0); MEAN CORPUSCULAR HGB CONC 33.3 g/dL (33.0-35.0); MEAN CORPUSCULAR VOLUME 96.7 fL (80.0-100.0); MEAN PLATELET VOLUME 7.3 fL (7.4-11.0); MONOCYTES # (AUTO) 0.4 x10^3/uL (0.3-0.8); MONOCYTES % (AUTO) 7.4 % (0.0-13.0); NEUTROPHILS # (AUTO) 2.9 x10^3/uL (2.2-4.8); NEUTROPHILS % (AUTO) 53.6 % (42.0-75.0); PLATELET COUNT 220 X10^3/uL (150.0-450.0); RED BLOOD COUNT 4.23 X10^6/uL (3.5-5.4); RED CELL DISTRIBUTION WIDTH 12.8 % (11.6-16.5); WHITE BLOOD COUNT 5.4 X10^3/uL (3.6-10.0)
[2018-10-04 05:36] LABS: ALANINE AMINOTRANSFERASE 6 Units/L (12-78); ALBUMIN 2.3 g/dL (3.4-5.0); ALKALINE PHOSPHATASE 76 Units/L (46-116); ASPARTATE AMINO TRANSFERASE 12 Units/L (15-37); BLOOD UREA NITROGEN 7 mg/dL (7-18); CALCIUM 8.2 mg/dL (8.5-10.1); CARBON DIOXIDE 32.3 mmol/L (21-32); CHLORIDE 110 mmol/L (98-107); COR CA(FOR HYPOALB) 9.6 mg/dL (8.5-10.1); COR NA(FOR HYPERGLY) 148 mmol/L (136-145); CREATININE 0.73 mg/dL (0.55-1.02); SODIUM 147 mmol/L (136-145); TOTAL PROTEIN 6.1 g/dL (6.4-8.2); eGFR NON BLACK RACES > 60 (>60)
[2018-10-04] MEDS: ZOSYN VIAL 3.375 GRAMS 3.375 G in NS 100 ML IV + SPIKE MINIBAG* 100 ML IV SCH ×2 (06:15→14:15)
[2018-10-04] MEDS ORDERED: NS 1/2 1000 ML IV 1,000 ML ONE (07:45)
[2018-10-04] MEDS: NS 1/2 1000 ML IV 1,000 ML IV SCH (07:52)
[2018-10-04] MEDS: VIBRAMYCIN 100 MG in D5W 250 ML IV 250 ML IV SCH ×2 (08:34→21:55)
[2018-10-04] MEDS: COLACE CAP 100 MG PO SCH ×2 (08:35→21:50)
[2018-10-04] MEDS: PROTONIX TAB 40 MG PO SCH (08:35)
[2018-10-04] MEDS: DEPAKOTE D.R. TAB PO SCH ×2 (08:35→21:50)
[2018-10-04] MEDS: ZINC SULFATE PO SCH (08:35)
[2018-10-04] MEDS: TAB-A-VITE PO SCH (08:35)
[2018-10-04] MEDS: COZAAR PO SCH (08:35)
[2018-10-04] MEDS: NEURONTIN CAP 300 MG PO SCH ×4 (08:35→21:50)
[2018-10-04] MEDS: HEMOCYTE-PLUS PO SCH (08:35)
[2018-10-04] MEDS: LASIX PO SCH (08:35)
[2018-10-04] MEDS: VITAMIN C PO SCH ×2 (08:35→21:50)
[2018-10-04] MEDS: EMPAGLIFLOZIN 10 MG PO SCH (08:38)
[2018-10-04] MEDS: ARTIFICIAL TEARS DROPS OP SCH ×2 (08:42→21:42)
[2018-10-04] MEDS: NYSTATIN POWDER TOP SCH ×2 (08:42→21:05)
[2018-10-04] MEDS: FLONASE NASAL SPRAY ENOSTRIL SCH (08:42)
[2018-10-04] MEDS: ULTRAM PO PRN (10:33)
[2018-10-04] MEDS: SENOKOT PO SCH ×2 (11:20→21:50)
[2018-10-04] MEDS: MILK OF MAGNESIA PO SCH ×2 (12:14→21:45)
--- NOTE | 2018-10-04 19:49 | PCM.PROG ---
Progress Note - Progress Note for Day of Date of Exam: 10/03/18 - Subjective Subjective: WAS ADMITTED FOR RIGHT HIP CELLULITIS AND ABSCESS. SHE IS STATUS POST I&D. TODAY, SHE IS ALERT AND ORIENTED, LYING IN BED WITH EYES CLOSED ON MORNING ROUNDS. SHE AWAKENS AND RESPONDS TO VERBAL STIMULI. SHE CONTINUES WITH PAIN TO THE RIGHT HIP. THERE CONTINUES TO BE ERYTHEMA, HOWEVER, IT CONTINUES TO IMPROVE. WOUND IS NOTED WITH PACKING. HER VITALS THIS MORNING ARE: 97.8-54-20-96%-122/54. LABS WERE OBTIAINED. ABNORMAL LAB VALUES INCLUDE THE FOLLOWING: SODIUM 146, CHLORIDE 110, GLUCOSE 177, CALCIUM 8.2, AST 11, ALT 8, TOTAL PROTEIN 6.3, ALBUMIN 2.5. BLOOD CULTURES ARE PENDING. WOUND CULTURES ARE POSITIVE FOR GROWTH OF MRSA. SHE IS CURRENTLY RECEIVING IV FLUIDS AND ZOSYN 3.37 5G IV TID, IV DOXYCYCLINE, AND HOME MEDICATIONS WERE RESUMED. OTHERWISE, WE WILL CONTINUE WITH CURRENT PLAN OF CARE TODAY. WE PLAN TO FOLLOW UP WITH AM LABS AND CONTINUE TO MONITOR. - Past Medical Family Social History Past Med/Fam/Surg Hx: No changes since H&P Allergies: Allergies azithromycin Allergy (Verified 11/13/17 23:23) ciprofloxacin Allergy (Verified 11/13/17 23:23) codeine Allergy (Verified 11/13/17 23:23) Corticosteroids (Glucocorticoids) Allergy (Verified 11/13/17 23:23) levofloxacin Allergy (Verified 11/13/17 23:23) morphine Allergy (Verified 11/13/17 23:23) niacin Allergy (Verified 11/13/17 23:23) promethazine Allergy (Verified 11/13/17 23:23) topiramate Allergy (Verified 11/13/17 23:23) - Review of Systems ROS: No change since H&P - Vital Signs and I&O's Vital Signs: Temperature 97.8 F Pulse Rate [Left Radial] 64 Pulse Rate 62 Respiratory Rate 18 Blood Pressure [Right Arm] 117/56 Blood Pressure [Left Arm] 157/67 Blood Pressure 142/65 O2 Sat by Pulse Oximetry 91 Intake and Output: Intake & Output 10/02/18 10/03/18 10/04/18 10/05/18 11:59 11:59 11:59 11:59 Intake Total 3877 / 3877 3410 / 3410 2275 / 2275 1028 / 1028 Balance 3877 / 3877 341 / 0 2274 / 2274 1028 / 1028 - Physical Exam Oriented: Normal Eyes: Normal Ear: Normal Nose: Normal Throat: Normal Respiratory: Generalized, Diminished Cardiovascular: Normal. negative: S3, S4, Murmur : Normal Auscultation: Bowel Sounds: Normal Palpation: Normal Tenderness: Normal Skin: Other (Rt hip ulcer ( s/p debridement ) with less erythema and moderate drainage [id number] ) Musculoskeletal: Normal Psychiatric: Normal Mood Description: Calm Affect: Normal Speech Pattern: Clear, Appropriate - Laboratory and Diagnostics Result Diagrams: 10/04/18 04:55 10/04/18 04:55 Labs: 09/28/18 21:04 Blood Blood Culture - Final 09/28/18 21:01 Blood Blood Culture - Final 09/30/18 10:35 Hip - Right Gram Stain - Final 09/30/18 10:35 Hip - Right Wound Culture - Final Methicillin Resis Staph Aureus 09/29/18 10:32 Hip - Right Gram Stain - Final 09/29/18 10:32 Hip - Right Wound Culture - Final Methicillin Resis Staph Aureus Laboratory WBC 5.4 X10^3/uL (3.6-10.0) 10/04/18 04:55 RBC 4.23 X10^6/uL (3.5-5.4) 10/04/18 04:55 Hgb 13.6 g/dL (12.0-16.0) 10/04/18 04:55 Hct 40.8 % (36.0-47.0) 10/04/18 04:55 MCV 96.7 fL (80.0-100.0) 10/04/18 04:55 MCH 32.2 pg (27.0-34.0) 10/04/18 04:55 MCHC 33.3 g/dL (33.0-35.0) 10/04/18 04:55 RDW 12.8 % (11.6-16.5) 10/04/18 04:55 Plt Count 220 X10^3/uL (150.0-450.0) 10/04/18 04:55 Plt Count Comment Adequate (ADEQUATE) 10/03/18 05:00 MPV 7.3 fL (7.4-11.0) L 10/04/18 04:55 Neut % (Auto) 53.6 % (42.0-75.0) 10/04/18 04:55 Lymph % (Auto) 35.4 % (21.0-51.0) 10/04/18 04:55 [place] % (Auto) 7.4 % (0.0-13.0) 10/04/18 04:55 Eos % (Auto) 3.1 % (0.9-2.9) H 10/04/18 04:55 Baso % (Auto) 0.5 % (0.2-1.0) 10/04/18 04:55 Neut # (Auto) 2.9 x10^3/uL (2.2-4.8) 10/04/18 04:55 Lymph # (Auto) 1.9 X10^3/uL (1.3-2.9) 10/04/18 04:55 [place] # (Auto) 0.4 x10^3/uL (0.3-0.8) 10/04/18 04:55 Eos # (Auto) 0.2 x10^3/uL (0.0-0.2) 10/04/18 04:55 Baso # (Auto) 0.0 X10^3/uL (0.0-0.1) 10/04/18 04:55 Absolute Nucleated RBC 0.1 /100WBC 10/04/18 04:55 Plt Morphology Comment Normal (NORMAL) 10/03/18 05:00 RBC Morphology Normal (NORMAL) 10/03/18 05:00 Sodium 147 mmol/L (136-145) H 10/04/18 04:55 Corrected Sodium 148 mmol/L (136-145) H 10/04/18 04:55 Potassium 3.8 mmol/L (3.5-5.1) 10/04/18 04:55 Chloride 110 mmol/L (98-107) H 10/04/18 04:55 Carbon Dioxide 32.3 mmol/L (21-32) H 10/04/18 04:55 BUN 7 mg/dL (7-18) 10/04/18 04:55 Creatinine 0.73 mg/dL (0.55-1.02) 10/04/18 04:55 Est GFR (MDRD) Af Amer > 60 (>60) 10/04/18 04:55 Est GFR (MDRD) Non-Af > 60 (>60) 10/04/18 04:55 Glucose 140 mg/dL (65-99) H 10/04/18 04:55 Calcium 8.2 mg/dL (8.5-10.1) L 10/04/18 04:55 Corrected Calcium 9.6 mg/dL (8.5-10.1) 10/04/18 04:55 Magnesium 2.2 mg/dL (1.7-2.9) 09/29/18 04:00 Total Bilirubin 0.20 mg/dL (0.2-1.0) 10/04/18 04:55 AST 12 Units/L (15-37) L 10/04/18 04:55 ALT 6 Units/L (12-78) L 10/04/18 04:55 Alkaline Phosphatase 76 Units/L (46-116) 10/04/18 04:55 Total Protein 6.1 g/dL (6.4-8.2) L 10/04/18 04:55 Albumin 2.3 g/dL (3.4-5.0) L 10/04/18 04:55 Globulin 3.8 g/dL (2.5-4.5) 10/04/18 04:55 Albumin/Globulin Ratio 0.6 Ratio (1.1-2.1) L 10/04/18 04:55 Tissue Pathology To follow 09/30/18 10:35 - Plan (1) Cellulitis of right hip Status: Acute Plan: IV FLUIDS, IV ZOSYN ,IV DOXY, WOUND CARE, CONTINUE TO MONITOR
[2018-10-04] MEDS: SNACK - Diabetic Appropriate PO SCH (20:25)
[2018-10-04] MEDS ORDERED: DEPAKOTE D.R. TAB ONE (20:47)
[2018-10-04] MEDS ORDERED: LEXAPRO ONE (20:49)
[2018-10-04] MEDS: PERCOCET TAB 5/325 MG PO PRN (21:50)
[2018-10-04] MEDS: LEXAPRO PO SCH (21:50)
[2018-10-04] MEDS: ARICEPT TAB 5 MG PO SCH (21:50)
[2018-10-04] MEDS: ZOCOR TAB 20 MG PO SCH (21:50)
[2018-10-05] MEDS: ZOSYN VIAL 3.375 GRAMS 3.375 G in NS 100 ML IV + SPIKE MINIBAG* 100 ML IV SCH ×2 (00:05→06:01)
[2018-10-05] MEDS: NS 1/2 1000 ML IV 1,000 ML IV SCH ×2 (01:17→06:02)
[2018-10-05 05:23] LABS: BASOPHILS % (AUTO) 0.6 % (0.2-1.0); EOSINOPHILS # (AUTO) 0.2 x10^3/uL (0.0-0.2); EOSINOPHILS % (AUTO) 2.6 % (0.9-2.9); HEMATOCRIT 40.9 % (36.0-47.0); HEMOGLOBIN 13.7 g/dL (12.0-16.0); LYMPHOCYTES # (AUTO) 2.5 X10^3/uL (1.3-2.9); LYMPHOCYTES % (AUTO) 40.5 % (21.0-51.0); MEAN CORPUSCULAR HEMOGLOBIN 32.4 pg (27.0-34.0); MEAN CORPUSCULAR HGB CONC 33.6 g/dL (33.0-35.0); MEAN CORPUSCULAR VOLUME 96.4 fL (80.0-100.0); MEAN PLATELET VOLUME 7.2 fL (7.4-11.0); MONOCYTES # (AUTO) 0.5 x10^3/uL (0.3-0.8); MONOCYTES % (AUTO) 8.1 % (0.0-13.0); NEUTROPHILS % (AUTO) 48.2 % (42.0-75.0); PLATELET COUNT 227 X10^3/uL (150.0-450.0); RED BLOOD COUNT 4.24 X10^6/uL (3.5-5.4); RED CELL DISTRIBUTION WIDTH 12.5 % (11.6-16.5); WHITE BLOOD COUNT 6.2 X10^3/uL (3.6-10.0)
[2018-10-05 05:37] LABS: ALANINE AMINOTRANSFERASE 7 Units/L (12-78); ALBUMIN 2.6 g/dL (3.4-5.0); ALKALINE PHOSPHATASE 93 Units/L (46-116); ASPARTATE AMINO TRANSFERASE 13 Units/L (15-37); BLOOD UREA NITROGEN 11 mg/dL (7-18); CALCIUM 8.5 mg/dL (8.5-10.1); CARBON DIOXIDE 32.1 mmol/L (21-32); CHLORIDE 107 mmol/L (98-107); COR CA(FOR HYPOALB) 9.6 mg/dL (8.5-10.1); COR NA(FOR HYPERGLY) 147 mmol/L (136-145); CREATININE 0.82 mg/dL (0.55-1.02); SODIUM 144 mmol/L (136-145); TOTAL PROTEIN 6.6 g/dL (6.4-8.2); eGFR NON BLACK RACES > 60 (>60)
[2018-10-05] MEDS ORDERED: NS 1/2 1000 ML IV 1,000 ML ONE (05:49)
[2018-10-05] MEDS: VIBRAMYCIN 100 MG in D5W 250 ML IV 250 ML IV SCH (09:12)
[2018-10-05] MEDS: DEPAKOTE D.R. TAB PO SCH (09:14)
[2018-10-05] MEDS: LASIX PO SCH (09:14)
[2018-10-05] MEDS: NEURONTIN CAP 300 MG PO SCH (09:14)
[2018-10-05] MEDS: PROTONIX TAB 40 MG PO SCH (09:15)
[2018-10-05] MEDS: NAMENDA TAB 10 MG PO SCH (09:15)
[2018-10-05] MEDS: TAB-A-VITE PO SCH (09:15)
[2018-10-05] MEDS: VITAMIN C PO SCH (09:15)
[2018-10-05] MEDS: COZAAR PO SCH (09:15)
[2018-10-05] MEDS: SENOKOT PO SCH (09:15)
[2018-10-05] MEDS: HEMOCYTE-PLUS PO SCH (09:15)
[2018-10-05] MEDS: ZINC SULFATE PO SCH (09:16)
[2018-10-05] MEDS: NYSTATIN POWDER TOP SCH (09:16)
[2018-10-05] MEDS: MILK OF MAGNESIA PO SCH (09:16)
[2018-10-05] MEDS: COLACE CAP 100 MG PO SCH (09:16)
[2018-10-05] MEDS: ARTIFICIAL TEARS DROPS OP SCH (09:17)
[2018-10-05] MEDS: FLONASE NASAL SPRAY ENOSTRIL SCH (09:17)
[2018-10-05] MEDS ORDERED: DULCOLAX SUPPOSITORY 10 MG RECTAL ONE (11:07)
[2018-10-05] MEDS: HumuLIN R SUBCUT PRN (12:10)
[2018-10-05 13:50] VITALS: BP 138/61
== END 2018-10-05 14:10 | DRG 603 ==
LOC: MED/SURG
PROVIDERS: ADMIT Internal Medicine; ATTEND Internal Medicine
DX: I10 Essential (primary) hypertension; F20.9 Schizophrenia, unspecified; L89.219 Pressure ulcer of right hip, unspecified stage; L03.115 Cellulitis of right lower limb; R26.89 Other abnormalities of gait and mobility; L02.415 Cutaneous abscess of right lower limb; F41.8 Other specified anxiety disorders; B95.62 Methicillin resistant Staphylococcus aureus infection as the cause of diseases classified elsewhere; Z74.01 Bed confinement status; E78.2 Mixed hyperlipidemia; I25.10 Atherosclerotic heart disease of native coronary artery without angina pectoris; K21.9 Gastro-esophageal reflux disease without esophagitis; E11.65 Type 2 diabetes mellitus with hyperglycemia
CPT/HCPCS: 36415; 70486; 80053; 83735; 85025; 87040; 87070; 87075; 87077; 87186; 87205; 88305; 88312; 94760; 99100; A4222; J3490; G0378; J1815; J2250; J2405; J2543; J2704; J3010; J7030; J7050; J7060; J7120; S0119; S0181

== ENCOUNTER 2020-06-26 12:20 | Observation (INO) ==
[2020-06-26 12:51] LABS: BILIRUBIN,URINE NEGATIVE (NEGATIVE); BLOOD/HEMOGLOBIN,URINE 2+ (NEGATIVE); GLUCOSE, URINE 4+ (NEGATIVE); KETONES,URINE NEGATIVE (NEGATIVE); LEUKOCYTE ESTERASE ,URINE 1+ (NEGATIVE); NITRITES,URINE NEGATIVE (NEGATIVE); PROTEIN,URINE NEGATIVE (NEGATIVE); UROBILINOGEN,URINE NORMAL (NORMAL)
[2020-06-26 12:55] LABS: BASOPHILS % (AUTO) 0.2 % (0.2-1.0); EOSINOPHILS # (AUTO) 0.1 x10^3/uL (0.0-0.2); EOSINOPHILS % (AUTO) 0.8 % (0.9-2.9); HEMATOCRIT 46.5 % (36.0-47.0); HEMOGLOBIN 15.2 g/dL (12.0-16.0); LYMPHOCYTES # (AUTO) 3.6 X10^3/uL (1.3-2.9); LYMPHOCYTES % (AUTO) 32.2 % (21.0-51.0); MEAN CORPUSCULAR HEMOGLOBIN 32.7 pg (27.0-34.0); MEAN CORPUSCULAR HGB CONC 32.6 g/dL (33.0-35.0); MEAN CORPUSCULAR VOLUME 100.3 fL (80.0-100.0); MEAN PLATELET VOLUME 8.1 fL (7.4-11.0); MONOCYTES # (AUTO) 0.8 x10^3/uL (0.3-0.8); MONOCYTES % (AUTO) 6.9 % (0.0-13.0); NEUTROPHILS # (AUTO) 6.7 x10^3/uL (2.2-4.8); NEUTROPHILS % (AUTO) 59.9 % (42.0-75.0); PLATELET COUNT 168 X10^3/uL (150.0-450.0); RED BLOOD COUNT 4.64 X10^6/uL (3.5-5.4); RED CELL DISTRIBUTION WIDTH 13.2 % (11.6-16.5); WHITE BLOOD COUNT 11.1 X10^3/uL (3.6-10.0)
[2020-06-26 12:56] LABS: COLOR,URINE YELLOW (YELLOW)
--- NOTE | 2020-06-26 12:58 | CT ---
HISTORYPossible stroke, weaknessSTUDYCT brain without contrastCOMPARISONMarch 2019TECHNIQUEMultiple axial images of the brain were obtained from the skull base to the vertex [without] administration of IV contrast.Dose reduction techniques including Automated Exposure Control (AEC) and adjustment of mA and kV were utlized.FINDINGS[No acute intraparenchymal hemorrhage or mass can be identified.] [No extra-axial fluid collections are seen.] [No alteration in the attenuation of the brain parenchyma can be identified to suggest acute or subacute ischemic change.] Scattered small vessel ischemic changes and age-appropriate atrophy are noted. If there is high concern for acute stroke then MRI would be of benefit. [The ventricular system is symmetric and nondilated.] [The extracranial structures are grossly unremarkable.]IMPRESSION[No acute intracranial process can be identified.]Electronically signed by: SHABNAM SERNA (Jun 26, 2020 12:56:30)
[2020-06-26 13:03] LABS: APPEARANCE,URINE SLIGHTLY HAZY (CLEAR)
[2020-06-26 13:04] LABS: BACTERIA,URINE TRACE /HPF (NEGATIVE); SQUAMOUS EPITHELIAL CELL,UR RARE /HPF (NEGATIVE)
[2020-06-26 13:08] LABS: BLOOD UREA NITROGEN 22 mg/dL (7-18); CALCIUM 9.2 mg/dL (8.5-10.1); CARBON DIOXIDE 34.8 mmol/L (21-32); CHLORIDE 106 mmol/L (98-107); COR NA(FOR HYPERGLY) 148 mmol/L (136-145); CREATININE 1.09 mg/dL (0.55-1.02); SODIUM 146 mmol/L (136-145); TROPONIN I < 0.02 ng/mL (0-1.5); eGFR NON BLACK RACES 52 (>60)
[2020-06-26 13:14] LABS: ALANINE AMINOTRANSFERASE 25 Units/L (12-78); ALBUMIN 3.4 g/dL (3.4-5.0); ALKALINE PHOSPHATASE 98 Units/L (46-116); ASPARTATE AMINO TRANSFERASE 26 Units/L (15-37); CKMB % 0.2 % (<4); CREATINE KINASE 490 Units/L (26-192); CREATINE KINASE MB < 1.0 ng/mL (0-4.0); TOTAL PROTEIN 8.1 g/dL (6.4-8.2)
--- NOTE | 2020-06-26 14:12 | DR.AMS ---
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 SNF pt. chronic dementia. Complaint Chief Complaint:: long-term staff pt has been confused since yesterday. They report noticing left sided facial droop approx 1 hour ago. Pt reponds to verbal stimuli. Pt follows some verbal commands. COVID-19 Coronavirus risk:travel/contact w/high risk person: No Has patient experienced Coronavirus symptoms: No Reviewed Nurses Notes Reviewed: Yes Source History Provided: [facility] Mode of Arrival Mode of Arrival: Stretcher Timing Onset of Chief Complaint: 06/25/20 PMH PMH Past Medical History: Yes Past Medical History: Anemia, Anxiety, Arthritis, CHF, COPD, Coronary Artery Disease, CVA, Dementia, Depression, Diabetes, Dyslipidemia, GERD, Hypertension and Schizophrenia Past Surgical History: Yes Surgical History: Cholecystectomy, Hysterectomy and Ortho Surgery Family History History of Family Medical Conditions: Yes Family Medical History: Diabetes Mellitus, Cancer, [place], Coronary Artery Disease, Heart Failure, Sudden Cardiac and Hypertension Social History Does patient currently use any type of tobacco product: No Have you used tobacco products in the last 12 months: No Type of Tobacco Use: None Alcohol Use: None Do you use any recreational Drugs:: No Lives Where: [facility] Travel Risk Coronavirus risk:travel/contact w/high risk person: No Has patient experienced Coronavirus symptoms: No Infectious screening In the last 2 months have you had wt loss of >10#?: NO Have you had fever, night sweats or hemotysis?: No Have you traveled outside the country in the last 6 months?: No Isolation: Standard ROS Review of Systems Constitutional: See HPI Eyes: No Symptoms Reported ENTM: No Symptoms Reported Respiratoy: No Symptoms Reported Cardiovascular: No Symptoms Reported Gastrointestinal/Abdominal: No Symptoms Reported Genitourinary: No Symptoms Reported Neurological: See HPI Musculoskeletal: No Symptoms Reported Integumentary: No Symptoms Reported All Other Systems: Reviewed and Negative PE Vitals Vital Signs: Temp Pulse Resp BP BP BP Pulse Ox 06/26/20 13:00 56 L 16 113/54 97 06/26/20 12:30 97.3 F L 61 20 153/74 94 L 05/05/20 13:37 122/61 05/05/20 13:36 122/61 05/02/19 21:55 122/59 General Limitations: Altered Mental Status General Appearance: In No Apparent Distress and Other (chornic confusion- dementia- pleasant) Head Head Exam: Normal Inspection and Other (mild facial droop to left- ) Head Exam Physical: negative Laceration, Abrasion and Contusion Eyes Eye exam: Normal Appearance Pupils: Regular, Round: Bilateral ENT ENT Exam: Normal Exam and Normal Oropharynx Nose Exam: Normal Nose Exam Mouth Exam: Normal Inspection Throat Exam: Normal Inspection Neck Neck Exam: Normal Inspection Respiratory Respiratory Exam: Normal Lung Sounds Bilat Cardiovascular Cardiovascular Exam: Regular Rate and Normal Heart Sounds Abdominal Exam Abdominal Exam: Normal Inspection, Normal Bowel Sounds and Soft Extremities Extremities Exam: Normal Inspection and Full ROM Back Back Exam: Normal Inspection and Full ROM Skin Skin Exam: Warm, Dry and Intact COURSE Treatment Treatment: spoke w teleneuro and they recommend ASA and MR imaging. not a TPA candidate ROR Labs Reviewed Laboratory Results Reviewed?: Yes Result Diagrams: 06/26/20 12:40 06/26/20 12:40 Laboratory: WBC 11.1 X10^3/uL (3.6-10.0) H 06/26/20 12:40 RBC 4.64 X10^6/uL (3.5-5.4) 06/26/20 12:40 Hgb 15.2 g/dL (12.0-16.0) 06/26/20 12:40 Hct 46.5 % (36.0-47.0) 06/26/20 12:40 MCV 100.3 fL (80.0-100.0) H 06/26/20 12:40 MCH 32.7 pg (27.0-34.0) 06/26/20 12:40 MCHC 32.6 g/dL (33.0-35.0) L 06/26/20 12:40 RDW 13.2 % (11.6-16.5) 06/26/20 12:40 Plt Count 168 X10^3/uL (150.0-450.0) 06/26/20 12:40 MPV 8.1 fL (7.4-11.0) 06/26/20 12:40 Neut % (Auto) 59.9 % (42.0-75.0) 06/26/20 12:40 Lymph % (Auto) 32.2 % (21.0-51.0) 06/26/20 12:40 [place] % (Auto) 6.9 % (0.0-13.0) 06/26/20 12:40 Eos % (Auto) 0.8 % (0.9-2.9) L 06/26/20 12:40 Baso % (Auto) 0.2 % (0.2-1.0) 06/26/20 12:40 Neut # (Auto) 6.7 x10^3/uL (2.2-4.8) H 06/26/20 12:40 Lymph # (Auto) 3.6 X10^3/uL (1.3-2.9) H 06/26/20 12:40 [place] # (Auto) 0.8 x10^3/uL (0.3-0.8) 06/26/20 12:40 Eos # (Auto) 0.1 x10^3/uL (0.0-0.2) 06/26/20 12:40 Baso # (Auto) 0.0 X10^3/uL (0.0-0.1) 06/26/20 12:40 Absolute Nucleated RBC 0.1 /100WBC 06/26/20 12:40 PT 13.6 SECONDS (11.8-14.3) 06/26/20 12:40 INR Target Range - 06/26/20 12:40 INR 1.09 (0.8-1.3) 06/26/20 12:40 APTT 35.5 SECONDS (22.9-36.5) 06/26/20 12:40 PTT Comment - 06/26/20 12:40 Fibrinogen 431 mg/dL (239-489) 06/26/20 12:40 Sodium 146 mmol/L (136-145) H 06/26/20 12:40 Corrected Sodium 148 mmol/L (136-145) H 06/26/20 12:40 Potassium 4.6 mmol/L (3.5-5.1) 06/26/20 12:40 Chloride 106 mmol/L (98-107) 06/26/20 12:40 Carbon Dioxide 34.8 mmol/L (21-32) H 06/26/20 12:40 BUN 22 mg/dL (7-18) H 06/26/20 12:40 Creatinine 1.09 mg/dL (0.55-1.02) H 06/26/20 12:40 Est GFR (MDRD) Af Amer > 60 (>60) 06/26/20 12:40 Est GFR (MDRD) Non-Af 52 (>60) L 06/26/20 12:40 Glucose 165 mg/dL (65-99) H 06/26/20 12:40 Calcium 9.2 mg/dL (8.5-10.1) 06/26/20 12:40 Corrected Calcium TNP 06/26/20 12:40 Total Bilirubin 0.30 mg/dL (0.2-1.0) 06/26/20 12:40 AST 26 Units/L (15-37) 06/26/20 12:40 ALT 25 Units/L (12-78) 06/26/20 12:40 Alkaline Phosphatase 98 Units/L (46-116) 06/26/20 12:40 Creatine Kinase 490 Units/L (26-192) H 06/26/20 12:40 CK-MB (CK-2) < 1.0 ng/mL (0-4.0) 06/26/20 12:40 CK/CKMB % Calc 0.2 % (<4) 06/26/20 12:40 Troponin I < 0.02 ng/mL (0-1.5) 06/26/20 12:40 Total Protein 8.1 g/dL (6.4-8.2) 06/26/20 12:40 Albumin 3.4 g/dL (3.4-5.0) 06/26/20 12:40 Globulin 4.7 g/dL (2.5-4.5) H 06/26/20 12:40 Albumin/Globulin Ratio 0.7 Ratio (1.1-2.1) L 06/26/20 12:40 Specimen Type Catherized urine 06/26/20 12:37 Urine Color Yellow (YELLOW) 06/26/20 12:37 Urine Appearance Slightly hazy (CLEAR) 06/26/20 12:37 Urine pH 5.0 (5.0 - 8.0) 06/26/20 12:37 Ur Specific [place] 1.010 (1.000-1.030) 06/26/20 12:37 Urine Protein Negative (NEGATIVE) 06/26/20 12:37 Urine Glucose (UA) 4+ (NEGATIVE) 06/26/20 12:37 Urine Ketones Negative (NEGATIVE) 06/26/20 12:37 Urine Occult Blood 2+ (NEGATIVE) 06/26/20 12:37 Urine Nitrite Negative (NEGATIVE) 06/26/20 12:37 Urine Bilirubin Negative (NEGATIVE) 06/26/20 12:37 Urine Urobilinogen Normal (NORMAL) 06/26/20 12:37 Ur Leukocyte Esterase 1+ (NEGATIVE) 06/26/20 12:37 Urine RBC 3-5 /HPF (0-3) A 06/26/20 12:37 Urine WBC 10-20 /HPF (0-5) A 06/26/20 12:37 Ur Squamous Epith Cells Rare /HPF (NEGATIVE) 06/26/20 12:37 Urine Bacteria Trace /HPF (NEGATIVE) 06/26/20 12:37 Ur Culture Indicated? Yes/culture set up 06/26/20 12:37 Opioid Opioid Risk Tool Age (Michael box if 16-45): No History of Preadolescent Sexual Abuse: No Total: 0 Total Score Risk Category: Low Risk Copyright: Jeremy WESTON predicting aberrant behaviors ADDITIONAL NOTES Additional Notes Additional Notes: arranged obs to Dr Meeks-
[2020-06-26] MEDS ORDERED: ROCEPHIN 1 GRAM IV PREMIX 1 G/50 ML IV.SOLN. IV ONE ×2 (14:27→15:39)
--- NOTE | 2020-06-26 15:46 | RAD ---
HISTORY:LethargyStudy: Single view chestComparison:05/05/2020Findings:Single portable view submitted. No infiltrate, effusion, or pneumothorax identified .Cardiac and mediastinal contours are within normal limits .The soft tissues are intact .IMPRESSION:1. No acute cardiopulmonary abnormality.Electronically signed by: SUSANA QUIJANO (Jun 26, 2020 15:45:02)
[2020-06-26] MEDS ORDERED: PROVENTIL NEB TX 0.083% 2.5MG/ 3ML ONE (16:17)
[2020-06-26] MEDS ORDERED: NS 100 ML IV 100 ML IV ONE (16:24)
[2020-06-26] MEDS: PROVENTIL NEB TX 0.083% 2.5MG/ 3ML NEB PRN (16:25)
[2020-06-26] MEDS: TYLENOL 325 MG TAB PO PRN (17:28)
[2020-06-26 19:04] VITALS: BMI 38.4
[2020-06-26] MEDS ORDERED: PULMICORT NEB TX 0.5 MG NEB ONE (19:09)
[2020-06-26] MEDS ORDERED: PHARMACY CONSULT LTC MEDICATIONS XX SCH (20:00)
[2020-06-26] MEDS: PULMICORT NEB TX 0.5 MG NEB SCH (20:25)
[2020-06-26] MEDS ORDERED: OLANZAPINE 20 MG PO SCH (21:11)
[2020-06-26] MEDS ORDERED: SENNOSIDES DOCUSATE SODIUM PO SCH (21:15)
[2020-06-26] MEDS ORDERED: MEMANTINE 5 MG PO SCH (21:15)
[2020-06-26] MEDS: NEURONTIN CAP 400 MG PO SCH (22:22)
[2020-06-26] MEDS: HumuLIN R SC SCH (22:23)
[2020-06-26] MEDS: ARICEPT TAB 5 MG PO SCH (22:23)
[2020-06-26] MEDS: LEXAPRO PO SCH (22:24)
[2020-06-26] MEDS: DEPAKOTE D.R. TAB PO SCH (22:24)
[2020-06-26] MEDS: NAMENDA TAB 10 MG PO SCH (22:24)
[2020-06-26] MEDS: PEPCID TAB 40 MG PO SCH (22:25)
[2020-06-26] MEDS: ZyPREXA TAB 5 MG PO SCH (22:25)
[2020-06-26] MEDS: ZOCOR TAB 20 MG PO SCH (22:26)
[2020-06-27] MEDS: PROVENTIL NEB TX 0.083% 2.5MG/ 3ML NEB PRN ×3 (00:30→18:00)
[2020-06-27] MEDS: HumuLIN R SC SCH ×4 (05:38→20:57)
[2020-06-27 05:58] LABS: BASOPHILS % (AUTO) 0.3 % (0.2-1.0); EOSINOPHILS # (AUTO) 0.1 x10^3/uL (0.0-0.2); EOSINOPHILS % (AUTO) 1.4 % (0.9-2.9); HEMOGLOBIN 13.8 g/dL (12.0-16.0); LYMPHOCYTES # (AUTO) 1.9 X10^3/uL (1.3-2.9); LYMPHOCYTES % (AUTO) 31.3 % (21.0-51.0); MEAN CORPUSCULAR HEMOGLOBIN 32.1 pg (27.0-34.0); MEAN CORPUSCULAR VOLUME 100.4 fL (80.0-100.0); MEAN PLATELET VOLUME 8.1 fL (7.4-11.0); MONOCYTES # (AUTO) 0.5 x10^3/uL (0.3-0.8); MONOCYTES % (AUTO) 8.4 % (0.0-13.0); NEUTROPHILS # (AUTO) 3.7 x10^3/uL (2.2-4.8); NEUTROPHILS % (AUTO) 58.6 % (42.0-75.0); PLATELET COUNT 165 X10^3/uL (150.0-450.0); RED BLOOD COUNT 4.28 X10^6/uL (3.5-5.4); RED CELL DISTRIBUTION WIDTH 13.1 % (11.6-16.5); WHITE BLOOD COUNT 6.2 X10^3/uL (3.6-10.0)
[2020-06-27 06:11] LABS: ALANINE AMINOTRANSFERASE 15 Units/L (12-78); ALBUMIN 2.8 g/dL (3.4-5.0); ALKALINE PHOSPHATASE 77 Units/L (46-116); ASPARTATE AMINO TRANSFERASE 20 Units/L (15-37); BLOOD UREA NITROGEN 20 mg/dL (7-18); CALCIUM 8.8 mg/dL (8.5-10.1); CARBON DIOXIDE 33.9 mmol/L (21-32); CHLORIDE 108 mmol/L (98-107); COR CA(FOR HYPOALB) 9.8 mg/dL (8.5-10.1); COR NA(FOR HYPERGLY) 147 mmol/L (136-145); CREATININE 0.83 mg/dL (0.55-1.02); SODIUM 146 mmol/L (136-145); TOTAL PROTEIN 6.7 g/dL (6.4-8.2); eGFR NON BLACK RACES > 60 (>60)
[2020-06-27] MEDS ORDERED: PATIENT'S HOME MEDICATION (Multivitamin Tablet) PO SCH (09:00)
[2020-06-27] MEDS ORDERED: GLYCERIN OP SCH (09:00)
[2020-06-27] MEDS ORDERED: CARBOXYMETHYLCELLULOSE OP SCH (09:00)
[2020-06-27] MEDS ORDERED: [UNRECOGNIZED DRUG - OTHER] OP SCH (09:00)
[2020-06-27] MEDS: PULMICORT NEB TX 0.5 MG NEB SCH ×2 (09:05→21:28)
[2020-06-27] MEDS: ARTIFICIAL TEARS DROPS AFFEYE SCH ×2 (09:14→20:57)
[2020-06-27] MEDS: COZAAR PO SCH (09:15)
[2020-06-27] MEDS: COLACE SYRUP 100 MG UDC PO SCH ×2 (09:15→20:57)
[2020-06-27] MEDS: LASIX PO SCH (09:16)
[2020-06-27] MEDS: TYLENOL 325 MG TAB PO PRN (09:17)
[2020-06-27] MEDS: NEURONTIN CAP 400 MG PO SCH ×2 (09:19→20:58)
[2020-06-27] MEDS: NAMENDA TAB 10 MG PO SCH ×2 (09:20→20:58)
[2020-06-27] MEDS: DEPAKOTE D.R. TAB PO SCH ×2 (09:20→20:56)
[2020-06-27] MEDS: PROTONIX INJ 40 MG VIAL IVP SCH (09:20)
[2020-06-27] MEDS: ROCEPHIN VIAL 1 GRAM 1 G in NS 100 ML IV + SPIKE MINIBAG* 100 ML IV SCH (09:21)
[2020-06-27] MEDS: SENOKOT PO SCH ×2 (09:21→20:59)
[2020-06-27] MEDS: VITAMIN C PO SCH ×2 (09:22→20:59)
[2020-06-27] MEDS: TAB-A-VITE PO SCH (09:22)
[2020-06-27] MEDS: HEMOCYTE-PLUS PO SCH (09:23)
--- NOTE | 2020-06-27 10:55 | DR.H&P ---
H&P - History & Physical for Day of: H&P Date: 06/26/20 - Chief Complaint Chief Complaint: WEAKNESS, AMS, FACIAL DROOP - History of Present Illness History of Present Illness: IS A 75 YEAR OLD PATIENT OF OURS. SHE IS A RESIDENT OF [facility]. SHE PRESENTED TO THE ER WITH STAFF REPORTING THAT SHE HAS HAD ALTERED MENTAL STATUS, WEAKNESS, AND LEFT SIDED FACIAL DROOP. AMS AND WEAKNESS STARTED ONE DAY PRIOR TO ARRIVAL, BUT LEFT SIDED FACIAL DROOP STARTED ON HOUR PRIOR TO ARRIVAL. ON ARRIVAL TO THE ER, PATIENT RESPONDED TO VERBAL STIMULI AND WAS ABLE TO FOLLOW SOME VERBAL COMMANDS. HER PMH INCLUDES ANEMIA, ANXIETY, ARTHRITIS, CHF, COPD, CAD, CVA, DEMENTIA, DEPRESSION, DIABETES II, DYSLIPIDEMIA, GERD, HTN, SCHIZOPHRENIA, CHOLECYSTECTOMY, HYSTERECTOMY. ON ARRIVAL TO THE ER, VITALS WERE 97.3-61-20-94%-153/74. LABS WERE OBTAINED. ABNORMAL LAB VALUES INCLUDE THE FOLLOWING: WBC 11.1, SODIUM 146, CARBON DIOXIDE 34.8, BUN 22, CREATININE 1.09, GLUCOSE 165, CREATINE KINASE 490, GLOBULIN 4.7. COVID-19 NEGATIVE. A URINALYSIS WAS OBTAINED AND REVEALED: WBC 10- 20, RBC 3-5, LEUKOCYTES 1+, BACTERIA TRACE, OCCULT BLOOD 2+, GLUCOSE 4+. A URINE CULTURE WAS SET UP. BLOOD CULTURES WERE ALSO SET UP. A BRAIN CT WAS OBTAINED AND REVEALED: No acute intracranial process can be identified. A CHEST XRAY WAS OBTAINED AND REVEALED: No acute cardiopulmonary abnormality. EKG REVEALED: SINUS RHYTHM WITH HR 58. A STROKE CONSULT WAS OBTAINED FROM [facility]. PATIENT IS NOT A TPA CANDIDATE. NEUROLOGIST RECOMMENDED ASA AND MR IMAGING IF SYMPTOMS PERSISTED. PATIENT WAS ADMITTED TO THE HOSPITAL FOR FURTHER EVALUATION AND TREATMENT OF TIA, ALTERED MENTAL STATUS, AND URINARY TRACT INFECTION. SHE WAS STARTED ON ROCEPHIN 1G IV DAILY, LOVENOX 40MG SC DAILY, HUMULIN R SLIDING SCALE, OTBS ACHS, AND HER HOME MEDICATIONS WERE RESUMED. WE WILL PERFORM NEURO CHECKS Q2H. OTHERWISE, WE WILL FOLLOW UP WITH HOME MEDICATIONS AND CONTINUE TO MONITOR. TIME SPENT ON CLINICAL ASSESSMENT, REVIEWING LABS AND IMAGING, DECISION MAKING, AND DOCUMENTATION GREATER THAN 75 MINUTES. - Past Medical History Past Medical History: Coronary Artery Disease, Hypertension, Dyslipidemia, Diabetes, Schizophrenia, Dementia, Depression, Anxiety, Anemia, CVA, COPD, GERD, Arthritis, CHF - Past Surgical History Surgical History: Cholecystectomy, Hysterectomy, Ortho Surgery - Family History Family Medical History: Diabetes Mellitus, Cancer, [place], Coronary Artery Disease, Heart Failure, Sudden Cardiac , Hypertension - Social History Does patient currently use any type of tobacco product: No Have you used tobacco products in the last 12 months: No Type of Tobacco Use: None Alcohol Use: None Drug Use: None - Medications Home Medications: niacin Allergy (Mild, Verified 06/26/20 17:13) azithromycin Allergy (Verified 11/13/17 23:23) ciprofloxacin Allergy (Verified 11/13/17 23:23) codeine Allergy (Verified 11/13/17 23:23) Corticosteroids (Glucocorticoids) Allergy (Verified 11/13/17 23:23) levofloxacin Allergy (Verified 11/13/17 23:23) morphine Allergy (Verified 11/13/17 23:23) promethazine Allergy (Verified 11/13/17 23:23) topiramate Allergy (Verified 11/13/17 23:23) CONTINUE taking the following medications acetaminophen [Tylenol] 325 mg PO PRN PRN 06/26/20 [History] carboxymethylcellulose-glycern [Refresh Relieva] 1 drp OPHTHALMIC (EYE) BID 06/26/20 [History] empagliflozin [Jardiance] 10 mg PO DAILY 06/26/20 [History] famotidine [Pepcid] 40 mg PO HS 06/26/20 [History] ferrous fumarate [Ferrocite] 324 mg PO DAILY 06/26/20 [History] gabapentin 400 mg PO BID 06/26/20 [History] glipizide 5 mg PO DAILY 06/26/20 [History] insulin regular human [Novolin R Regular U-100 Insuln] 1 unit SUBCUT PRN PRN 06/26/20 [History] olanzapine [Zyprexa] 20 mg PO HS 06/26/20 [History] sennosides-docusate sodium [GADIEL-COLACE] 1 tab PO BID 06/26/20 [History] - Review of Systems Constitutional: See HPI, Weakness Eyes: No Symptoms Reported ENT: No Symptoms Reported Respiratory: No Symptoms Reported Cardiovascular: No Symptoms Reported Gastrointestinal: No Symptoms Reported Genitourinary: No Symptoms Reported Musculoskeletal: No Symptoms Reported Skin: No Symptoms Reported Neurological: See HPI, Weakness, Confusion - Physical Exam Vital Signs: Temperature 97.9 F Pulse Rate [Left Radial] 72 Pulse Rate 78 Respiratory Rate 18 Blood Pressure [Right Arm] 130/58 Blood Pressure [Left Arm] 115/56 Blood Pressure 136/63 O2 Sat by Pulse Oximetry 91 Oriented: Not Oriented Eyes: Normal Ear: Normal Nose: Normal Throat: Normal Respiratory: Diminished Throughout Cardiovascular: Normal. negative: S3, S4, Murmur : Normal Auscultation: Bowel Sounds: Normal Tenderness: Normal Skin: Normal Musculoskeletal: Normal Psychiatric: Normal Mood Description: Calm Affect: Normal Speech Pattern: Inappropriate - Assessment/Plan (1) Brain TIA Status: Acute Plan: ADMIT, ROCEPHIN 1G IV DAILY, LOVENOX 40MG SC DAILY, HUMULIN R SLIDING SCALE, OTBS ACHS, AND HER HOME MEDICATIONS WERE RESUMED. WE WILL PERFORM NEURO CHECKS Q2H. (2) Acute UTI Status: Acute (3) AMS (altered mental status) Qualifiers: Altered mental status type: transient alteration of awareness Qualified Code(s): R40.4 - Transient alteration of awareness Status: Acute (4) Generalized weakness Status: Acute - Allergies Allergies/Adverse Reactions: Allergies Allergy/AdvReac Type Severity Reaction Status Date / Time niacin Allergy Mild Verified 06/26/20 17:13 azithromycin Allergy Verified 11/13/17 23:23 ciprofloxacin Allergy Verified 11/13/17 23:23 codeine Allergy Verified 11/13/17 23:23 Corticosteroids Allergy Verified 11/13/17 23:23 (Glucocorticoids) levofloxacin Allergy Verified 11/13/17 23:23 morphine Allergy Verified 11/13/17 23:23 promethazine Allergy Verified 11/13/17 23:23 topiramate Allergy Verified 11/13/17 23:23
[2020-06-27] MEDS: LOVENOX INJ 40 MG SYR SC SCH (11:58)
[2020-06-27] MEDS ORDERED: SNACK - Diabetic Appropriate PO SCH (20:00)
[2020-06-27] MEDS ORDERED: DEPAKOTE D.R. TAB PO ONE (20:01)
[2020-06-27] MEDS ORDERED: LEXAPRO ONE (20:01)
[2020-06-27] MEDS: LEXAPRO PO SCH (20:57)
[2020-06-27] MEDS: ARICEPT TAB 5 MG PO SCH (20:57)
[2020-06-27] MEDS: PEPCID TAB 40 MG PO SCH (20:58)
[2020-06-27] MEDS: ZOCOR TAB 20 MG PO SCH (20:59)
[2020-06-27] MEDS: ZyPREXA TAB 5 MG PO SCH (20:59)
[2020-06-28] MEDS: HumuLIN R SC SCH ×2 (05:32→11:56)
[2020-06-28 06:23] LABS: BASOPHILS % (AUTO) 0.4 % (0.2-1.0); EOSINOPHILS # (AUTO) 0.2 x10^3/uL (0.0-0.2); EOSINOPHILS % (AUTO) 2.5 % (0.9-2.9); HEMATOCRIT 42.6 % (36.0-47.0); HEMOGLOBIN 14.1 g/dL (12.0-16.0); LYMPHOCYTES # (AUTO) 2.2 X10^3/uL (1.3-2.9); LYMPHOCYTES % (AUTO) 35.5 % (21.0-51.0); MEAN CORPUSCULAR HEMOGLOBIN 32.9 pg (27.0-34.0); MEAN CORPUSCULAR HGB CONC 33.1 g/dL (33.0-35.0); MEAN CORPUSCULAR VOLUME 99.3 fL (80.0-100.0); MEAN PLATELET VOLUME 8.2 fL (7.4-11.0); MONOCYTES # (AUTO) 0.5 x10^3/uL (0.3-0.8); MONOCYTES % (AUTO) 8.7 % (0.0-13.0); NEUTROPHILS # (AUTO) 3.2 x10^3/uL (2.2-4.8); NEUTROPHILS % (AUTO) 52.9 % (42.0-75.0); PLATELET COUNT 159 X10^3/uL (150.0-450.0); RED BLOOD COUNT 4.29 X10^6/uL (3.5-5.4); RED CELL DISTRIBUTION WIDTH 12.9 % (11.6-16.5); WHITE BLOOD COUNT 6.1 X10^3/uL (3.6-10.0)
[2020-06-28 06:35] LABS: ALANINE AMINOTRANSFERASE 20 Units/L (12-78); ALBUMIN 2.8 g/dL (3.4-5.0); ALKALINE PHOSPHATASE 84 Units/L (46-116); ASPARTATE AMINO TRANSFERASE 18 Units/L (15-37); BLOOD UREA NITROGEN 17 mg/dL (7-18); CALCIUM 8.7 mg/dL (8.5-10.1); CARBON DIOXIDE 34.2 mmol/L (21-32); CHLORIDE 108 mmol/L (98-107); COR CA(FOR HYPOALB) 9.7 mg/dL (8.5-10.1); COR NA(FOR HYPERGLY) 149 mmol/L (136-145); CREATININE 0.81 mg/dL (0.55-1.02); SODIUM 148 mmol/L (136-145); TOTAL PROTEIN 6.7 g/dL (6.4-8.2); eGFR NON BLACK RACES > 60 (>60)
[2020-06-28] MEDS: PROTONIX INJ 40 MG VIAL IVP SCH (09:00)
[2020-06-28] MEDS: ROCEPHIN VIAL 1 GRAM 1 G in NS 100 ML IV + SPIKE MINIBAG* 100 ML IV SCH (09:01)
[2020-06-28] MEDS: LOVENOX INJ 40 MG SYR SC SCH (09:03)
[2020-06-28] MEDS: COLACE SYRUP 100 MG UDC PO SCH (09:03)
[2020-06-28] MEDS: TAB-A-VITE PO SCH (09:06)
[2020-06-28] MEDS: NAMENDA TAB 10 MG PO SCH (09:06)
[2020-06-28] MEDS: SENOKOT PO SCH (09:07)
[2020-06-28] MEDS: VITAMIN C PO SCH (09:07)
[2020-06-28] MEDS: LASIX PO SCH (09:07)
[2020-06-28] MEDS: DEPAKOTE D.R. TAB PO SCH (09:07)
[2020-06-28] MEDS: NEURONTIN CAP 400 MG PO SCH (09:08)
[2020-06-28] MEDS: COZAAR PO SCH (09:08)
[2020-06-28] MEDS: HEMOCYTE-PLUS PO SCH (09:08)
[2020-06-28] MEDS: ARTIFICIAL TEARS DROPS AFFEYE SCH (09:09)
[2020-06-28] MEDS: PULMICORT NEB TX 0.5 MG NEB SCH (09:30)
[2020-06-28 12:05] VITALS: BP 113/58
[2020-06-28] MEDS: PROVENTIL NEB TX 0.083% 2.5MG/ 3ML NEB PRN (12:50)
[2020-06-28] MEDS: TYLENOL 325 MG TAB PO PRN (14:00)
== END 2020-06-28 14:56 ==
LOC: ER 12:20 → MED/SURG 12:20
PROVIDERS: ADMIT Internal Medicine; ATTEND Internal Medicine
DX: R40.4 Transient alteration of awareness; N39.0 Urinary tract infection, site not specified; F20.9 Schizophrenia, unspecified; I25.10 Atherosclerotic heart disease of native coronary artery without angina pectoris; F41.8 Other specified anxiety disorders; R26.89 Other abnormalities of gait and mobility; I10 Essential (primary) hypertension; G45.8 Other transient cerebral ischemic attacks and related syndromes; J44.9 Chronic obstructive pulmonary disease, unspecified; E78.2 Mixed hyperlipidemia; R53.1 Weakness; K21.9 Gastro-esophageal reflux disease without esophagitis; Z20.822 Contact with and (suspected) exposure to COVID-19; E11.65 Type 2 diabetes mellitus with hyperglycemia

== ENCOUNTER 2021-03-24 10:00 | Inpatient (IN) ==
--- NOTE | 2021-03-24 14:01 | RAD ---
HISTORYfever, hypoxiaSTUDYCHEST, 1 [id number] trachea is midline. The cardiac silhouette is unremarkable . The lungs are clear without focal infiltrate or effusion. The bony thorax is unremarkable.IMPRESSIONNo acute cardiopulmonary disease.Electronically signed by: IRLANDA AGUILERA (Mar 24, 2021 14:00:16)
[2021-03-24 14:15] LABS: ABG BASE EXCESS 36.8 mmol/L (-2.0-2.0)
[2021-03-24 14:16] LABS: ABG ALLEN TEST POS
[2021-03-24] MEDS: NS 1,000 ML IV 1,000 ML IV SCH ×2 (14:32→23:50)
[2021-03-24 16:25] LABS: ALBUMIN 3.2 g/dL (3.4-5.0); CARBON DIOXIDE 30.5 mmol/L (21-32); COR CA(FOR HYPOALB) 9.6 mg/dL (8.5-10.1); CREATININE 1.21 mg/dL (0.55-1.02); TOTAL PROTEIN 7.8 g/dL (6.4-8.2)
[2021-03-24 16:26] LABS: LACTIC ACID 1.5 mmol/L (0.4-2.0)
[2021-03-24 16:59] LABS: BASOPHILS % (AUTO) 0.1 % (0.2-1.0); EOSINOPHILS % (AUTO) 0.2 % (0.9-2.9); HEMATOCRIT 44.3 % (36.0-47.0); HEMOGLOBIN 14.9 g/dL (12.0-16.0); LYMPHOCYTES # (AUTO) 1.1 X10^3/uL (1.3-2.9); LYMPHOCYTES % (AUTO) 12.4 % (21.0-51.0); MEAN CORPUSCULAR HEMOGLOBIN 31.8 pg (27.0-34.0); MEAN CORPUSCULAR HGB CONC 33.5 g/dL (33.0-35.0); MEAN CORPUSCULAR VOLUME 94.9 fL (80.0-100.0); MEAN PLATELET VOLUME 8.2 fL (7.4-11.0); MONOCYTES # (AUTO) 0.6 x10^3/uL (0.3-0.8); MONOCYTES % (AUTO) 6.6 % (0.0-13.0); NEUTROPHILS # (AUTO) 6.9 x10^3/uL (2.2-4.8); NEUTROPHILS % (AUTO) 80.7 % (42.0-75.0); RED BLOOD COUNT 4.67 X10^6/uL (3.5-5.4); RED CELL DISTRIBUTION WIDTH 12.8 % (11.6-16.5); WHITE BLOOD COUNT 8.6 X10^3/uL (3.6-10.0)
[2021-03-24 17:03] LABS: BILIRUBIN,URINE NEGATIVE (NEGATIVE); BLOOD/HEMOGLOBIN,URINE 1+ (NEGATIVE); GLUCOSE, URINE 4+ (NEGATIVE); KETONES,URINE 1+ (NEGATIVE); LEUKOCYTE ESTERASE ,URINE NEGATIVE (NEGATIVE); NITRITES,URINE NEGATIVE (NEGATIVE); PROTEIN,URINE NEGATIVE (NEGATIVE); UROBILINOGEN,URINE NORMAL (NORMAL)
[2021-03-24 17:04] LABS: APPEARANCE,URINE CLEAR (CLEAR); COLOR,URINE YELLOW (YELLOW); SQUAMOUS EPITHELIAL CELL,UR NUMEROUS /HPF (NEGATIVE)
[2021-03-24 17:05] LABS: BACTERIA,URINE NEGATIVE /HPF (NEGATIVE)
[2021-03-24] MEDS ORDERED: D50W ABBOJECT SYR IV ONE (18:06)
[2021-03-24] MEDS ORDERED: D50W ABBOJECT SYR ONE (18:08)
[2021-03-24] MEDS: SNACK - Diabetic Appropriate PO SCH (22:12)
[2021-03-24] MEDS: NAMENDA TAB 10 MG PO SCH (22:20)
[2021-03-24] MEDS: NEURONTIN CAP 400 MG PO SCH (22:20)
[2021-03-24] MEDS: LEXAPRO PO SCH (22:22)
[2021-03-24] MEDS: ARICEPT TAB 10 MG PO SCH (22:22)
[2021-03-24] MEDS: ZOCOR TAB 20 MG PO SCH (22:22)
[2021-03-24] MEDS: PEPCID TAB 40 MG PO SCH (22:23)
[2021-03-24] MEDS: TYLENOL 325 MG TAB PO PRN (22:25)
[2021-03-24] MEDS: PULMICORT NEB TX 0.5 MG NEB SCH (22:35)
[2021-03-24] MEDS: BROVANA IN SCH (22:35)
[2021-03-24] MEDS ORDERED: BROVANA ONE (22:37)
[2021-03-24] MEDS ORDERED: PULMICORT NEB TX 0.5 MG NEB ONE (22:38)
[2021-03-25] MEDS: ZOSYN VIAL 3.375 GRAMS 3.375 G in NS 100 ML IV + SPIKE MINIBAG* 100 ML IV SCH ×4 (00:50→21:26)
[2021-03-25] MEDS: DOPAMINE IV PREMIX 400 MG/250 ML 400 MG/250 ML BAG IV PRN ×4 (00:50→22:01)
[2021-03-25] MEDS ORDERED: DUONEB 0.5 MG/3 MG (3 mL) NEB PRN (02:32)
[2021-03-25] MEDS ORDERED: DUONEB 0.5 MG/3 MG (3 mL) NEB ONE (02:39)
[2021-03-25] MEDS: ZOFRAN INJ 4 MG VIAL IVP PRN (03:50)
[2021-03-25 05:42] LABS: BASOPHILS % (AUTO) 0.1 % (0.2-1.0); EOSINOPHILS % (AUTO) 0.1 % (0.9-2.9); HEMATOCRIT 44.6 % (36.0-47.0); HEMOGLOBIN 14.7 g/dL (12.0-16.0); LYMPHOCYTES # (AUTO) 1.4 X10^3/uL (1.3-2.9); MEAN CORPUSCULAR HGB CONC 32.9 g/dL (33.0-35.0); MEAN CORPUSCULAR VOLUME 97.2 fL (80.0-100.0); MEAN PLATELET VOLUME 8.3 fL (7.4-11.0); MONOCYTES # (AUTO) 0.8 x10^3/uL (0.3-0.8); MONOCYTES % (AUTO) 7.5 % (0.0-13.0); NEUTROPHILS # (AUTO) 8.4 x10^3/uL (2.2-4.8); NEUTROPHILS % (AUTO) 79.3 % (42.0-75.0); RED BLOOD COUNT 4.59 X10^6/uL (3.5-5.4); RED CELL DISTRIBUTION WIDTH 13.4 % (11.6-16.5); WHITE BLOOD COUNT 10.5 X10^3/uL (3.6-10.0)
[2021-03-25] MEDS ORDERED: TYLENOL 325 MG TAB PO ONE (05:45)
[2021-03-25] MEDS: TYLENOL 325 MG TAB PO PRN (05:50)
[2021-03-25 06:08] LABS: ALANINE AMINOTRANSFERASE 31 Units/L (12-78); ALKALINE PHOSPHATASE 140 Units/L (46-116); ASPARTATE AMINO TRANSFERASE 50 Units/L (15-37); BLOOD UREA NITROGEN 20 mg/dL (7-18); CALCIUM 8.6 mg/dL (8.5-10.1); CARBON DIOXIDE 26.6 mmol/L (21-32); CHLORIDE 107 mmol/L (98-107); COR CA(FOR HYPOALB) 9.4 mg/dL (8.5-10.1); COR NA(FOR HYPERGLY) 145 mmol/L (136-145); SODIUM 143 mmol/L (136-145); TOTAL PROTEIN 7.9 g/dL (6.4-8.2); eGFR NON BLACK RACES 57 (>60)
[2021-03-25] MEDS: GLUCOTROL PO SCH (06:35)
[2021-03-25] MEDS ORDERED: DOPAMINE IV PREMIX 400 MG/250 ML 400 MG/250 ML BAG IV ONE ×3 (07:45→20:00)
[2021-03-25] MEDS ORDERED: PULMICORT NEB TX 0.5 MG NEB ONE (08:41)
[2021-03-25] MEDS ORDERED: BROVANA ONE (08:41)
[2021-03-25] MEDS ORDERED: LASIX PO SCH (09:00)
[2021-03-25] MEDS ORDERED: PATIENT'S HOME MEDICATION PO SCH (09:00)
[2021-03-25] MEDS: BROVANA IN SCH ×2 (10:00→19:35)
[2021-03-25] MEDS: PULMICORT NEB TX 0.5 MG NEB SCH ×2 (10:00→19:35)
[2021-03-25] MEDS: VIBRAMYCIN 100 MG in D5W 250 ML IV 250 ML IV SCH ×2 (10:45→20:12)
[2021-03-25] MEDS: DEPAKOTE D.R. TAB PO SCH (12:28)
[2021-03-25] MEDS: VITAMIN C PO SCH (12:29)
[2021-03-25] MEDS: TAB-A-VITE PO SCH (12:29)
[2021-03-25] MEDS: HEMOCYTE-PLUS PO SCH (12:29)
[2021-03-25] MEDS: LEXAPRO PO SCH (12:30)
[2021-03-25] MEDS: NEURONTIN CAP 400 MG PO SCH ×2 (12:31→21:26)
[2021-03-25] MEDS: NAMENDA TAB 10 MG PO SCH ×2 (12:31→21:27)
[2021-03-25] MEDS ORDERED: ZOSYN VIAL 3.375 GRAMS IV ONE (13:05)
[2021-03-25] MEDS ORDERED: D5W 250 ML IV 250 ML IV ONE (13:06)
[2021-03-25] MEDS ORDERED: NS 100 ML IV + SPIKE MINIBAG* 100 ML IV ONE (13:06)
[2021-03-25] MEDS ORDERED: VIBRAMYCIN IV ONE (13:06)
[2021-03-25] MEDS: PREVACID PO SCH (13:15)
[2021-03-25] MEDS: NS 1,000 ML IV 1,000 ML IV SCH (15:41)
[2021-03-25] MEDS ORDERED: OFIRMEV IV 1000 MG VIAL 1,000 MG/100 ML VIAL IV PRN (17:07)
[2021-03-25] MEDS ORDERED: OFIRMEV IV 1000 MG VIAL 1,000 MG/100 ML VIAL IV ONE (17:08)
[2021-03-25] MEDS: SNACK - Diabetic Appropriate PO SCH (20:02)
[2021-03-25] MEDS: ARICEPT TAB 10 MG PO SCH (21:24)
[2021-03-25] MEDS: ZOCOR TAB 20 MG PO SCH (21:24)
[2021-03-25] MEDS: PEPCID TAB 40 MG PO SCH (21:25)
[2021-03-26] MEDS: NS 1,000 ML IV 1,000 ML IV SCH ×5 (02:39→22:22)
[2021-03-26] MEDS ORDERED: NS 100 ML IV + SPIKE MINIBAG* 100 ML IV ONE (03:49)
[2021-03-26] MEDS ORDERED: ZOSYN VIAL 3.375 GRAMS IV ONE (03:49)
[2021-03-26] MEDS: ZOSYN VIAL 3.375 GRAMS 3.375 G in NS 100 ML IV + SPIKE MINIBAG* 100 ML IV SCH ×3 (05:20→21:13)
[2021-03-26 06:03] LABS: BASOPHILS % (AUTO) 0.2 % (0.2-1.0); EOSINOPHILS % (AUTO) 0.1 % (0.9-2.9); HEMATOCRIT 43.2 % (36.0-47.0); HEMOGLOBIN 14.6 g/dL (12.0-16.0); LYMPHOCYTES # (AUTO) 1.2 X10^3/uL (1.3-2.9); LYMPHOCYTES % (AUTO) 12.7 % (21.0-51.0); MEAN CORPUSCULAR HEMOGLOBIN 32.2 pg (27.0-34.0); MEAN CORPUSCULAR HGB CONC 33.7 g/dL (33.0-35.0); MEAN CORPUSCULAR VOLUME 95.4 fL (80.0-100.0); MEAN PLATELET VOLUME 8.2 fL (7.4-11.0); MONOCYTES # (AUTO) 0.7 x10^3/uL (0.3-0.8); MONOCYTES % (AUTO) 7.4 % (0.0-13.0); NEUTROPHILS # (AUTO) 7.2 x10^3/uL (2.2-4.8); NEUTROPHILS % (AUTO) 79.6 % (42.0-75.0); RED BLOOD COUNT 4.53 X10^6/uL (3.5-5.4); RED CELL DISTRIBUTION WIDTH 12.6 % (11.6-16.5); WHITE BLOOD COUNT 9.1 X10^3/uL (3.6-10.0)
[2021-03-26] MEDS: GLUCOTROL PO SCH (06:06)
[2021-03-26 06:12] LABS: BLOOD UREA NITROGEN 14 mg/dL (7-18); CALCIUM 9.2 mg/dL (8.5-10.1); CARBON DIOXIDE 29.5 mmol/L (21-32); CHLORIDE 105 mmol/L (98-107); COR NA(FOR HYPERGLY) 143 mmol/L (136-145); CREATININE 0.93 mg/dL (0.55-1.02); SODIUM 142 mmol/L (136-145); eGFR NON BLACK RACES > 60 (>60)
[2021-03-26 06:33] LABS: ALANINE AMINOTRANSFERASE 30 Units/L (12-78); ALBUMIN 2.6 g/dL (3.4-5.0); ALKALINE PHOSPHATASE 148 Units/L (46-116); ASPARTATE AMINO TRANSFERASE 42 Units/L (15-37); COR CA(FOR HYPOALB) 10.3 mg/dL (8.5-10.1); TOTAL PROTEIN 7.4 g/dL (6.4-8.2)
[2021-03-26] MEDS: DOPAMINE IV PREMIX 400 MG/250 ML 400 MG/250 ML BAG IV PRN (08:19)
[2021-03-26 08:22] LABS: ABG BASE EXCESS 7.6 mmol/L (-2.0-2.0)
[2021-03-26 08:23] LABS: ABG ALLEN TEST POS; ABG HCO3 34.7 mmol/L (22-26)
[2021-03-26] MEDS: PULMICORT NEB TX 0.5 MG NEB SCH ×2 (08:45→20:40)
[2021-03-26] MEDS: BROVANA IN SCH ×2 (08:45→20:40)
[2021-03-26] MEDS: DEPAKOTE D.R. TAB PO SCH (09:00)
[2021-03-26] MEDS: NEURONTIN CAP 400 MG PO SCH ×2 (09:00→21:15)
[2021-03-26] MEDS: PREVACID PO SCH (09:00)
[2021-03-26] MEDS: HEMOCYTE-PLUS PO SCH (09:00)
[2021-03-26] MEDS: TAB-A-VITE PO SCH (09:00)
[2021-03-26] MEDS: NAMENDA TAB 10 MG PO SCH ×2 (09:00→21:40)
[2021-03-26] MEDS ORDERED: REMDESIVIR 200 MG in NS 250 ML IV 250 ML IV ONE (09:10)
[2021-03-26] MEDS ORDERED: PREVACID PO ONE (09:39)
[2021-03-26] MEDS ORDERED: VITAMIN C ONE ×2 (09:39→10:41)
[2021-03-26] MEDS ORDERED: PHARMACY CONSULT - IVERMECTIN XX SCH (10:00)
[2021-03-26] MEDS ORDERED: IVERMECTIN ONE (10:41)
[2021-03-26] MEDS ORDERED: REMDESIVIR IV ONE (10:41)
[2021-03-26] MEDS ORDERED: NS 250 ML IV 250 ML IV ONE (10:42)
[2021-03-26] MEDS ORDERED: LOVENOX INJ 30 MG SYR SC ONE (10:42)
[2021-03-26] MEDS ORDERED: VIBRAMYCIN PO ONE (11:12)
--- NOTE | 2021-03-26 12:35 | DR.H&P ---
H&P History & Physical for Day of: H&P Date: 03/24/21 Chief Complaint Chief Complaint: AMS Allergies Allergies Allergy/AdvReac Type Severity Reaction Status Date / Time niacin Allergy Mild Verified 06/26/20 17:13 azithromycin Allergy Verified 11/13/17 23:23 ciprofloxacin Allergy Verified 11/13/17 23:23 codeine Allergy Verified 11/13/17 23:23 Corticosteroids Allergy Verified 11/13/17 23:23 (Glucocorticoids) levofloxacin Allergy Verified 11/13/17 23:23 morphine Allergy Verified 11/13/17 23:23 promethazine Allergy Verified 11/13/17 23:23 topiramate Allergy Verified 11/13/17 23:23 History of Present Illness History of Present Illness: This is a 76-year-old white female who was brought to ED for AMS and appearing very ill. Work-up in the ED revealed the patient had Covid-19 and also, she was hypotensive in the ED as well. Likely from sepsis. Past Medical History Past Medical History: Anemia, Anxiety, CHF, COPD, CVA, Depression, Diabetes, Dyslipidemia, Hypertension and Schizophrenia Past Surgical History Surgical History: Cholecystectomy, Hysterectomy and Ortho Surgery Family History Family Medical History: Diabetes Mellitus, Cancer, [place], Coronary Artery Disease, Heart Failure, Sudden Cardiac and Hypertension Social History Does patient currently use any type of tobacco product: No Have you used tobacco products in the last 12 months: No Does any household member use tobacco: No Alcohol Use: None Drug Use: None Medications Home Medications: niacin Allergy (Mild, Verified 06/26/20 17:13) azithromycin Allergy (Verified 11/13/17 23:23) ciprofloxacin Allergy (Verified 11/13/17 23:23) codeine Allergy (Verified 11/13/17 23:23) Corticosteroids (Glucocorticoids) Allergy (Verified 11/13/17 23:23) levofloxacin Allergy (Verified 11/13/17 23:23) morphine Allergy (Verified 11/13/17 23:23) promethazine Allergy (Verified 11/13/17 23:23) topiramate Allergy (Verified 11/13/17 23:23) CONTINUE taking the following medications dexlansoprazole [Dexilant] 30 mg PO DAILY 03/26/21 [History] donepezil 10 mg PO DAILY 03/26/21 [History] glipizide 10 mg PO DAILY 03/26/21 [History] memantine 10 mg PO BID 03/26/21 [History] olanzapine 2.5 mg PO DAILY 03/26/21 [History] Labs Result Diagrams: 03/26/21 05:22 03/26/21 05:22 Labs: 03/24/21 10:37 Blood Blood Culture - Preliminary 03/24/21 10:37 Blood Blood Culture - Preliminary Laboratory WBC 9.1 X10^3/uL (3.6-10.0) 03/26/21 05:22 RBC 4.53 X10^6/uL (3.5-5.4) 03/26/21 05:22 Hgb 14.6 g/dL (12.0-16.0) 03/26/21 05:22 Hct 43.2 % (36.0-47.0) 03/26/21 05:22 MCV 95.4 fL (80.0-100.0) 03/26/21 05:22 MCH 32.2 pg (27.0-34.0) 03/26/21 05:22 MCHC 33.7 g/dL (33.0-35.0) 03/26/21 05:22 RDW 12.6 % (11.6-16.5) 03/26/21 05:22 Plt Count 157 X10^3/uL (150.0-450.0) 03/26/21 05:22 MPV 8.2 fL (7.4-11.0) 03/26/21 05:22 Neut % (Auto) 79.6 % (42.0-75.0) H 03/26/21 05:22 Lymph % (Auto) 12.7 % (21.0-51.0) L 03/26/21 05:22 [place] % (Auto) 7.4 % (0.0-13.0) 03/26/21 05:22 Eos % (Auto) 0.1 % (0.9-2.9) L 03/26/21 05:22 Baso % (Auto) 0.2 % (0.2-1.0) 03/26/21 05:22 Neut # (Auto) 7.2 x10^3/uL (2.2-4.8) H 03/26/21 05:22 Lymph # (Auto) 1.2 X10^3/uL (1.3-2.9) L 03/26/21 05:22 [place] # (Auto) 0.7 x10^3/uL (0.3-0.8) 03/26/21 05:22 Eos # (Auto) 0.0 x10^3/uL (0.0-0.2) 03/26/21 05:22 Baso # (Auto) 0.0 X10^3/uL (0.0-0.1) 03/26/21 05:22 Absolute Nucleated RBC 0.2 /100WBC 03/26/21 05:22 D-Dimer 0.51 ug/ml (0.0-0.57) 03/24/21 10:37 Sample Site Lr 03/26/21 08:17 ABG pH 7.370 (7.35-7.45) 03/26/21 08:17 ABG pCO2 60.0 mmHg (35.0-45.0) H* 03/26/21 08:17 ABG pO2 64.0 mmHg (80.0-100.0) L 03/26/21 08:17 ABG HCO3 34.7 mmol/L (22-26) H* 03/26/21 08:17 ABG O2 Saturation 91.0 % (90-100) 03/26/21 08:17 ABG Base Excess 7.6 mmol/L (-2.0-2.0) H 03/26/21 08:17 Richard Test Pos 03/26/21 08:17 A-a Gradient 118.0 mmHg 03/26/21 08:17 FiO2 36.0 03/26/21 08:17 Blood Gas Comments Joelle well cb 03/26/21 08:17 Sodium 142 mmol/L (136-145) 03/26/21 05:22 Corrected Sodium 143 mmol/L (136-145) 03/26/21 05:22 Potassium 4.7 mmol/L (3.5-5.1) 03/26/21 05:22 Chloride 105 mmol/L (98-107) 03/26/21 05:22 Carbon Dioxide 29.5 mmol/L (21-32) 03/26/21 05:22 BUN 14 mg/dL (7-18) 03/26/21 05:22 Creatinine 0.93 mg/dL (0.55-1.02) 03/26/21 05:22 Est GFR (MDRD) Af Amer > 60 (>60) 03/26/21 05:22 Est GFR (MDRD) Non-Af > 60 (>60) 03/26/21 05:22 Glucose 145 mg/dL (65-99) H 03/26/21 05:22 Lactic Acid 1.5 mmol/L (0.4-2.0) 03/24/21 10:37 Calcium 9.2 mg/dL (8.5-10.1) 03/26/21 05:22 Corrected Calcium 10.3 mg/dL (8.5-10.1) H 03/26/21 05:22 Total Bilirubin 0.60 mg/dL (0.2-1.0) 03/26/21 05:22 AST 42 Units/L (15-37) H 03/26/21 05:22 ALT 30 Units/L (12-78) 03/26/21 05:22 Alkaline Phosphatase 148 Units/L (46-116) H 03/26/21 05:22 C-Reactive Protein 104.30 mg/L (0-3.0) H 03/25/21 04:40 Total Protein 7.4 g/dL (6.4-8.2) 03/26/21 05:22 Albumin 2.6 g/dL (3.4-5.0) L 03/26/21 05:22 Globulin 4.8 g/dL (2.5-4.5) H 03/26/21 05:22 Albumin/Globulin Ratio 0.5 Ratio (1.1-2.1) L 03/26/21 05:22 Specimen Type Catherized urine 03/24/21 11:07 Urine Color Yellow (YELLOW) 03/24/21 11:07 Urine Appearance Clear (CLEAR) 03/24/21 11:07 Urine pH 5.0 (5.0 - 8.0) 03/24/21 11:07 Ur Specific [place] 1.015 (1.000-1.030) 03/24/21 11:07 Urine Protein Negative (NEGATIVE) 03/24/21 11:07 Urine Glucose (UA) 4+ (NEGATIVE) 03/24/21 11:07 Urine Ketones 1+ (NEGATIVE) 03/24/21 11:07 Urine Occult Blood 1+ (NEGATIVE) 03/24/21 11:07 Urine Nitrite Negative (NEGATIVE) 03/24/21 11:07 Urine Bilirubin Negative (NEGATIVE) 03/24/21 11:07 Urine Urobilinogen Normal (NORMAL) 03/24/21 11:07 Ur Leukocyte Esterase Negative (NEGATIVE) 03/24/21 11:07 Urine RBC 3-5 /HPF (0-3) A 03/24/21 11:07 Urine WBC 0-2 /HPF (0-5) 03/24/21 11:07 Ur Squamous Epith Cells Numerous /HPF (NEGATIVE) 03/24/21 11:07 Urine Bacteria Negative /HPF (NEGATIVE) 03/24/21 11:07 Ur Culture Indicated? No/not indicated 03/24/21 11:07 SARS-CoV-2 (PCR) Positive (NEGATIVE) A 03/24/21 10:23 Influenza Type A (PCR) Negative (NEGATIVE) 03/24/21 10:23 Influenza Type B (PCR) Negative (NEGATIVE) 03/24/21 10:23 RSV (PCR) Negative (NEGATIVE) 03/24/21 10:23 S. pyogenes (TEM-PCR) Not detected (NOT DETECT) 03/24/21 10:37 Review of Systems Constitutional: No Symptoms Reported Eyes: No Symptoms Reported ENT: No Symptoms Reported Respiratory: No Symptoms Reported Cardiovascular: No Symptoms Reported Gastrointestinal: No Symptoms Reported Genitourinary: No Symptoms Reported Musculoskeletal: No Symptoms Reported Skin: No Symptoms Reported Neurological: No Symptoms Reported Physical Exam Vital Signs: Temperature 97.9 F Pulse Rate [Apical] 59 Pulse Rate 70 Respiratory Rate 20 Blood Pressure [Right Arm] 145/63 Blood Pressure 112/67 O2 Sat by Pulse Oximetry 94 Oriented: Not Oriented and Unable to test Eyes: Normal Ear: Normal Nose: Normal Respiratory: Diminished Throughout and Rhonchi Throughout Cardiovascular: Normal Auscultation: Bowel Sounds: Normal Palpation: Normal Tenderness: Normal Skin: Decreased [place]urg[place] Musculoskeletal: Instability Psychiatric: Other Affect: Quiet Assessment/Plan (1) COVID: Status: Acute Plan: Covid Protocol (2) AMS (altered mental status): Status: Acute (3) Dementia: Qualifiers: Dementia behavioral disturbance: without behavioral disturbance Dementia type: unspecified type Qualified Code(s): F03.90 - Unspecified dementia without behavioral disturbance Status: Acute (4) COPD (chronic obstructive pulmonary disease): Status: Chronic (5) Diabetes mellitus: Qualifiers: Diabetes mellitus complication status: without complication Diabetes mellitus medical terminologist insulin use: without medical terminologist use Diabetes mellitus type: type 2 Qualified Code(s): E11.9 - Type 2 diabetes mellitus without complications Status: Chronic (6) GERD (gastroesophageal reflux disease): Status: Chronic (7) Hypertension: Status: Chronic (8) Sepsis: Status: Acute Plan: Dopamine for associated hypotension. IV abx. Review H&P Reviewed: Yes Patient was examined?: Yes
--- NOTE | 2021-03-26 12:44 | PCM.PROG ---
Progress Note Progress Note for Day of Date of Exam: 03/25/21 Subjective Subjective: Patient resting comfortably this am. BP has stabalized on 10 mcg of Dopamine. No acute problems overnight. Past Medical Family Social History Past Med/Fam/Surg Hx: No changes since H&P Allergies: Allergies niacin Allergy (Mild, Verified 06/26/20 17:13) azithromycin Allergy (Verified 11/13/17 23:23) ciprofloxacin Allergy (Verified 11/13/17 23:23) codeine Allergy (Verified 11/13/17 23:23) Corticosteroids (Glucocorticoids) Allergy (Verified 11/13/17 23:23) levofloxacin Allergy (Verified 11/13/17 23:23) morphine Allergy (Verified 11/13/17 23:23) promethazine Allergy (Verified 11/13/17 23:23) topiramate Allergy (Verified 11/13/17 23:23) Review of Systems ROS: No change since H&P Vital Signs and I&O's Vital Signs: Temperature 97.9 F Pulse Rate [Apical] 59 Pulse Rate 70 Respiratory Rate 20 Blood Pressure [Right Arm] 145/63 Blood Pressure 112/67 O2 Sat by Pulse Oximetry 94 Intake and Output: Intake & Output 03/24/21 03/25/21 03/26/21 03/27/21 11:59 11:59 11:59 11:59 Intake Total 3861 / 3861 3529 / 3544 Output Total 950 / 950 3250 / 3250 Balance 2911 / 2911 279 / 294 Physical Exam Oriented: Not Oriented and Unable to test Eyes: Normal Ear: Normal Nose: Normal Respiratory: Generalized, Diminished and Rhonchi Cardiovascular: Normal Auscultation: Bowel Sounds: Normal Tenderness: Normal Skin: Decreased Turgur Musculoskeletal: Instability Psychiatric: Other Affect: Quiet Speech Pattern: Appropriate Laboratory and Diagnostics Result Diagrams: 03/26/21 05:22 03/26/21 05:22 Labs: 03/24/21 10:37 Blood Blood Culture - Preliminary 03/24/21 10:37 Blood Blood Culture - Preliminary Laboratory WBC 9.1 X10^3/uL (3.6-10.0) 03/26/21 05:22 RBC 4.53 X10^6/uL (3.5-5.4) 03/26/21 05:22 Hgb 14.6 g/dL (12.0-16.0) 03/26/21 05:22 Hct 43.2 % (36.0-47.0) 03/26/21 05:22 MCV 95.4 fL (80.0-100.0) 03/26/21 05:22 MCH 32.2 pg (27.0-34.0) 03/26/21 05:22 MCHC 33.7 g/dL (33.0-35.0) 03/26/21 05:22 RDW 12.6 % (11.6-16.5) 03/26/21 05:22 Plt Count 157 X10^3/uL (150.0-450.0) 03/26/21 05:22 MPV 8.2 fL (7.4-11.0) 03/26/21 05:22 Neut % (Auto) 79.6 % (42.0-75.0) H 03/26/21 05:22 Lymph % (Auto) 12.7 % (21.0-51.0) L 03/26/21 05:22 [place] % (Auto) 7.4 % (0.0-13.0) 03/26/21 05:22 Eos % (Auto) 0.1 % (0.9-2.9) L 03/26/21 05:22 Baso % (Auto) 0.2 % (0.2-1.0) 03/26/21 05:22 Neut # (Auto) 7.2 x10^3/uL (2.2-4.8) H 03/26/21 05:22 Lymph # (Auto) 1.2 X10^3/uL (1.3-2.9) L 03/26/21 05:22 [place] # (Auto) 0.7 x10^3/uL (0.3-0.8) 03/26/21 05:22 Eos # (Auto) 0.0 x10^3/uL (0.0-0.2) 03/26/21 05:22 Baso # (Auto) 0.0 X10^3/uL (0.0-0.1) 03/26/21 05:22 Absolute Nucleated RBC 0.2 /100WBC 03/26/21 05:22 D-Dimer 0.51 ug/ml (0.0-0.57) 03/24/21 10:37 Sample Site Lr 03/26/21 08:17 ABG pH 7.370 (7.35-7.45) 03/26/21 08:17 ABG pCO2 60.0 mmHg (35.0-45.0) H* 03/26/21 08:17 ABG pO2 64.0 mmHg (80.0-100.0) L 03/26/21 08:17 ABG HCO3 34.7 mmol/L (22-26) H* 03/26/21 08:17 ABG O2 Saturation 91.0 % (90-100) 03/26/21 08:17 ABG Base Excess 7.6 mmol/L (-2.0-2.0) H 03/26/21 08:17 Richard Test Pos 03/26/21 08:17 A-a Gradient 118.0 mmHg 03/26/21 08:17 FiO2 36.0 03/26/21 08:17 Blood Gas Comments Joelle well cb 03/26/21 08:17 Sodium 142 mmol/L (136-145) 03/26/21 05:22 Corrected Sodium 143 mmol/L (136-145) 03/26/21 05:22 Potassium 4.7 mmol/L (3.5-5.1) 03/26/21 05:22 Chloride 105 mmol/L (98-107) 03/26/21 05:22 Carbon Dioxide 29.5 mmol/L (21-32) 03/26/21 05:22 BUN 14 mg/dL (7-18) 03/26/21 05:22 Creatinine 0.93 mg/dL (0.55-1.02) 03/26/21 05:22 Est GFR (MDRD) Af Amer > 60 (>60) 03/26/21 05:22 Est GFR (MDRD) Non-Af > 60 (>60) 03/26/21 05:22 Glucose 145 mg/dL (65-99) H 03/26/21 05:22 Lactic Acid 1.5 mmol/L (0.4-2.0) 03/24/21 10:37 Calcium 9.2 mg/dL (8.5-10.1) 03/26/21 05:22 Corrected Calcium 10.3 mg/dL (8.5-10.1) H 03/26/21 05:22 Total Bilirubin 0.60 mg/dL (0.2-1.0) 03/26/21 05:22 AST 42 Units/L (15-37) H 03/26/21 05:22 ALT 30 Units/L (12-78) 03/26/21 05:22 Alkaline Phosphatase 148 Units/L (46-116) H 03/26/21 05:22 C-Reactive Protein 104.30 mg/L (0-3.0) H 03/25/21 04:40 Total Protein 7.4 g/dL (6.4-8.2) 03/26/21 05:22 Albumin 2.6 g/dL (3.4-5.0) L 03/26/21 05:22 Globulin 4.8 g/dL (2.5-4.5) H 03/26/21 05:22 Albumin/Globulin Ratio 0.5 Ratio (1.1-2.1) L 03/26/21 05:22 Specimen Type Catherized urine 03/24/21 11:07 Urine Color Yellow (YELLOW) 03/24/21 11:07 Urine Appearance Clear (CLEAR) 03/24/21 11:07 Urine pH 5.0 (5.0 - 8.0) 03/24/21 11:07 Ur Specific [place] 1.015 (1.000-1.030) 03/24/21 11:07 Urine Protein Negative (NEGATIVE) 03/24/21 11:07 Urine Glucose (UA) 4+ (NEGATIVE) 03/24/21 11:07 Urine Ketones 1+ (NEGATIVE) 03/24/21 11:07 Urine Occult Blood 1+ (NEGATIVE) 03/24/21 11:07 Urine Nitrite Negative (NEGATIVE) 03/24/21 11:07 Urine Bilirubin Negative (NEGATIVE) 03/24/21 11:07 Urine Urobilinogen Normal (NORMAL) 03/24/21 11:07 Ur Leukocyte Esterase Negative (NEGATIVE) 03/24/21 11:07 Urine RBC 3-5 /HPF (0-3) A 03/24/21 11:07 Urine WBC 0-2 /HPF (0-5) 03/24/21 11:07 Ur Squamous Epith Cells Numerous /HPF (NEGATIVE) 03/24/21 11:07 Urine Bacteria Negative /HPF (NEGATIVE) 03/24/21 11:07 Ur Culture Indicated? No/not indicated 03/24/21 11:07 SARS-CoV-2 (PCR) Positive (NEGATIVE) A 03/24/21 10:23 Influenza Type A (PCR) Negative (NEGATIVE) 03/24/21 10:23 Influenza Type B (PCR) Negative (NEGATIVE) 03/24/21 10:23 RSV (PCR) Negative (NEGATIVE) 03/24/21 10:23 S. pyogenes (TEM-PCR) Not detected (NOT DETECT) 03/24/21 10:37 Radiology Reviewed: Yes Plan (1) COVID: Status: Acute Plan: Covid Protocol (2) AMS (altered mental status): Status: Acute (3) Dementia: Status: Acute Qualifiers: Dementia behavioral disturbance: without behavioral disturbance Dementia type: unspecified type Qualified Code(s): F03.90 - Unspecified dementia without behavioral disturbance (4) COPD (chronic obstructive pulmonary disease): Status: Chronic (5) Diabetes mellitus: Status: Chronic Qualifiers: Diabetes mellitus complication status: without complication Diabetes mellitus custodial insulin use: without custodial use Diabetes mellitus type: type 2 Qualified Code(s): E11.9 - Type 2 diabetes mellitus without complications Plan: Regular insulin sliding scale. (6) GERD (gastroesophageal reflux disease): Status: Chronic (7) Hypertension: Status: Chronic (8) Sepsis: Status: Acute Plan: Dopamine for associated hypotension. IV abx.
[2021-03-26] MEDS: VIBRAMYCIN PO SCH ×2 (13:56→21:14)
[2021-03-26] MEDS: LOVENOX INJ 30 MG SYR SC SCH ×2 (13:57→21:15)
[2021-03-26] MEDS: IVERMECTIN PO SCH (13:58)
[2021-03-26] MEDS: LEXAPRO PO SCH (13:58)
[2021-03-26] MEDS: VITAMIN C PO SCH (14:00)
[2021-03-26] MEDS: TYLENOL 325 MG TAB PO PRN (19:48)
[2021-03-26] MEDS: SNACK - Diabetic Appropriate PO SCH (20:34)
--- NOTE | 2021-03-26 20:51 | PCM.PROG ---
Progress Note - Progress Note for Day of Date of Exam: 03/26/21 - Subjective Subjective: WAS ADMITTED FOR TREATMENT OF PNEUMONIA DUE TO COVID-16, SEPSIS, HYPOTENSION, AND AMS. SHE HAS A PMH OF DEMENTIA, COPD, DM II, ANEMIA, CHF, CVA, GERD, HTN, DYSLIPIDEMAI, SCHIZOPHRENIA, CHOLECYSTECTOMY, AND HYSTERECTOMY. TODAY, SHE IS LYING IN BED WITH EYES CLOSED ON MORNING ROUNDS. SHE AWAKENS AND RESPONDS TO VERBAL STIMULI. PATIENT CONTINUES TO BE DISORIENTED AND DOES NOT RESPOND TO QUESTIONS APPROPRIATELY. HER BLOOD PRESSURE HAS BEEN STABLE THROUGHOUT THE NIGHT. DOPAMINE DRIP HAS BEEN PAUSED. SHE IS CURRENTLY UTILIZING OXYGEN VIA NASAL CANNULA AT 4 LPM. ON EXAMINATION, HEART IS REGULAR IN RATE AND RHYTHM. BILATERAL LUNGS NOTED WITH SCATTERED RHONCHI THROUGHOUT. ABDOMEN IS ROUND, SOFT, AND NON-TENDER WITH NORMAL BOWEL SOUNDS NOTED IN ALL QUADRANTS. HER VITALS THIS MORNING ARE: 98.7-77-20-95%-124/58. LABS WERE OBTAINED. ABNORMAL LAB VALUES INCLUDE THE FOLLOWING: GLUCOSE 145, AST 42, ALK PHOS 148, ALBUMIN 2.6, GLOBULIN 4.8. BLOOD CULTURES ARE PENDING. ABG REVEALED: PH 7.370, PC02 60, P02 64, HC03 34.7, 02 SAT 91, BASE EXCESS 7.6, A-A GRADIENT 118, FI02 36.0. SHE IS CURRENTLY RECEIVING NORMAL SALINE AT 125 ML/HR, REMDESIVIR 100MG IV DAILY, ZOSYN 3.375G IV TID, DUONEBS Q4H PRN, BROVANA BID, PULMICORT NEBS BID, IVERMECTIN, ZOFRAN 4MG IV Q6H PRN, OTBS ACHS, HUMULIN R SLIDING SCALE, AND HER HOME MEDICATIONS WERE RESUMED. WE WILL CONTINUE WITH CURRENT PLAN OF CARE TODAY. OTHERWISE, WE PLAN TO FOLLOW UP WITH AM LABS AND CONTINUE TO MONITOR. TIME SPENT ON CLINICAL ASSESSMENT, REVIEWING LABS AND IMAGING, DECISION MAKING, AND DOCUMENTATION WAS GREATER THAN 45 MINUTES. - Past Medical Family Social History Past Med/Fam/Surg Hx: No changes since H&P Allergies: Allergies niacin Allergy (Mild, Verified 06/26/20 17:13) azithromycin Allergy (Verified 11/13/17 23:23) ciprofloxacin Allergy (Verified 11/13/17 23:23) codeine Allergy (Verified 11/13/17 23:23) Corticosteroids (Glucocorticoids) Allergy (Verified 11/13/17 23:23) levofloxacin Allergy (Verified 11/13/17 23:23) morphine Allergy (Verified 11/13/17 23:23) promethazine Allergy (Verified 11/13/17 23:23) topiramate Allergy (Verified 11/13/17 23:23) - Review of Systems ROS: No change since H&P - Vital Signs and I&O's Vital Signs: Temperature 98.2 F Pulse Rate [Apical] 59 Pulse Rate 68 Respiratory Rate 20 Blood Pressure [Right Arm] 145/63 Blood Pressure 130/59 O2 Sat by Pulse Oximetry 93 Intake and Output: Intake & Output 03/24/21 03/25/21 03/26/21 03/27/21 11:59 11:59 11:59 11:59 Intake Total 3861 / 3861 3529 / 3544 603 / 603 Output Total 950 / 950 3250 / 3250 750 / 750 Balance 2911 / 2911 279 / 294 -147 / -147 - Physical Exam Oriented: Not Oriented, Unable to test Eyes: Normal Ear: Normal Nose: Normal Respiratory: Generalized, Diminished, Rhonchi Cardiovascular: Normal Auscultation: Bowel Sounds: Normal Palpation: Normal Tenderness: Normal Skin: Decreased Turgur Musculoskeletal: Instability Psychiatric: Other Affect: Quiet Speech Pattern: Appropriate - Laboratory and Diagnostics Result Diagrams: 03/26/21 05:22 03/26/21 05:22 Labs: 03/24/21 10:37 Blood Blood Culture - Preliminary 03/24/21 10:37 Blood Blood Culture - Preliminary Laboratory WBC 9.1 X10^3/uL (3.6-10.0) 03/26/21 05:22 RBC 4.53 X10^6/uL (3.5-5.4) 03/26/21 05:22 Hgb 14.6 g/dL (12.0-16.0) 03/26/21 05:22 Hct 43.2 % (36.0-47.0) 03/26/21 05:22 MCV 95.4 fL (80.0-100.0) 03/26/21 05:22 MCH 32.2 pg (27.0-34.0) 03/26/21 05:22 MCHC 33.7 g/dL (33.0-35.0) 03/26/21 05:22 RDW 12.6 % (11.6-16.5) 03/26/21 05:22 Plt Count 157 X10^3/uL (150.0-450.0) 03/26/21 05:22 MPV 8.2 fL (7.4-11.0) 03/26/21 05:22 Neut % (Auto) 79.6 % (42.0-75.0) H 03/26/21 05:22 Lymph % (Auto) 12.7 % (21.0-51.0) L 03/26/21 05:22 [place] % (Auto) 7.4 % (0.0-13.0) 03/26/21 05:22 Eos % (Auto) 0.1 % (0.9-2.9) L 03/26/21 05:22 Baso % (Auto) 0.2 % (0.2-1.0) 03/26/21 05:22 Neut # (Auto) 7.2 x10^3/uL (2.2-4.8) H 03/26/21 05:22 Lymph # (Auto) 1.2 X10^3/uL (1.3-2.9) L 03/26/21 05:22 [place] # (Auto) 0.7 x10^3/uL (0.3-0.8) 03/26/21 05:22 Eos # (Auto) 0.0 x10^3/uL (0.0-0.2) 03/26/21 05:22 Baso # (Auto) 0.0 X10^3/uL (0.0-0.1) 03/26/21 05:22 Absolute Nucleated RBC 0.2 /100WBC 03/26/21 05:22 D-Dimer 0.51 ug/ml (0.0-0.57) 03/24/21 10:37 Sample Site Lr 03/26/21 08:17 ABG pH 7.370 (7.35-7.45) 03/26/21 08:17 ABG pCO2 60.0 mmHg (35.0-45.0) H* 03/26/21 08:17 ABG pO2 64.0 mmHg (80.0-100.0) L 03/26/21 08:17 ABG HCO3 34.7 mmol/L (22-26) H* 03/26/21 08:17 ABG O2 Saturation 91.0 % (90-100) 03/26/21 08:17 ABG Base Excess 7.6 mmol/L (-2.0-2.0) H 03/26/21 08:17 Richard Test Pos 03/26/21 08:17 A-a Gradient 118.0 mmHg 03/26/21 08:17 FiO2 36.0 03/26/21 08:17 Blood Gas Comments Joelle well cb 03/26/21 08:17 Sodium 142 mmol/L (136-145) 03/26/21 05:22 Corrected Sodium 143 mmol/L (136-145) 03/26/21 05:22 Potassium 4.7 mmol/L (3.5-5.1) 03/26/21 05:22 Chloride 105 mmol/L (98-107) 03/26/21 05:22 Carbon Dioxide 29.5 mmol/L (21-32) 03/26/21 05:22 BUN 14 mg/dL (7-18) 03/26/21 05:22 Creatinine 0.93 mg/dL (0.55-1.02) 03/26/21 05:22 Est GFR (MDRD) Af Amer > 60 (>60) 03/26/21 05:22 Est GFR (MDRD) Non-Af > 60 (>60) 03/26/21 05:22 Glucose 145 mg/dL (65-99) H 03/26/21 05:22 POC Glucose (mg/dL) 81 mg/dL (65-99) 03/26/21 19:45 Lactic Acid 1.5 mmol/L (0.4-2.0) 03/24/21 10:37 Calcium 9.2 mg/dL (8.5-10.1) 03/26/21 05:22 Corrected Calcium 10.3 mg/dL (8.5-10.1) H 03/26/21 05:22 Total Bilirubin 0.60 mg/dL (0.2-1.0) 03/26/21 05:22 AST 42 Units/L (15-37) H 03/26/21 05:22 ALT 30 Units/L (12-78) 03/26/21 05:22 Alkaline Phosphatase 148 Units/L (46-116) H 03/26/21 05:22 C-Reactive Protein 104.30 mg/L (0-3.0) H 03/25/21 04:40 Total Protein 7.4 g/dL (6.4-8.2) 03/26/21 05:22 Albumin 2.6 g/dL (3.4-5.0) L 03/26/21 05:22 Globulin 4.8 g/dL (2.5-4.5) H 03/26/21 05:22 Albumin/Globulin Ratio 0.5 Ratio (1.1-2.1) L 03/26/21 05:22 Specimen Type Catherized urine 03/24/21 11:07 Urine Color Yellow (YELLOW) 03/24/21 11:07 Urine Appearance Clear (CLEAR) 03/24/21 11:07 Urine pH 5.0 (5.0 - 8.0) 03/24/21 11:07 Ur Specific [place] 1.015 (1.000-1.030) 03/24/21 11:07 Urine Protein Negative (NEGATIVE) 03/24/21 11:07 Urine Glucose (UA) 4+ (NEGATIVE) 03/24/21 11:07 Urine Ketones 1+ (NEGATIVE) 03/24/21 11:07 Urine Occult Blood 1+ (NEGATIVE) 03/24/21 11:07 Urine Nitrite Negative (NEGATIVE) 03/24/21 11:07 Urine Bilirubin Negative (NEGATIVE) 03/24/21 11:07 Urine Urobilinogen Normal (NORMAL) 03/24/21 11:07 Ur Leukocyte Esterase Negative (NEGATIVE) 03/24/21 11:07 Urine RBC 3-5 /HPF (0-3) A 03/24/21 11:07 Urine WBC 0-2 /HPF (0-5) 03/24/21 11:07 Ur Squamous Epith Cells Numerous /HPF (NEGATIVE) 03/24/21 11:07 Urine Bacteria Negative /HPF (NEGATIVE) 03/24/21 11:07 Ur Culture Indicated? No/not indicated 03/24/21 11:07 SARS-CoV-2 (PCR) Positive (NEGATIVE) A 03/24/21 10:23 Influenza Type A (PCR) Negative (NEGATIVE) 03/24/21 10:23 Influenza Type B (PCR) Negative (NEGATIVE) 03/24/21 10:23 RSV (PCR) Negative (NEGATIVE) 03/24/21 10:23 S. pyogenes (TEM-PCR) Not detected (NOT DETECT) 03/24/21 10:37 - Plan (1) Pneumonia due to COVID-19 virus Status: Acute (2) Sepsis Status: Acute Qualifiers: Sepsis type: sepsis due to unspecified organism Sepsis acute organ dysfunction status: unspecified Qualified Code(s): A41.9 - Sepsis, unspecified organism Plan: Dopamine for associated hypotension. IV abx. (3) Hypotension Status: Acute Qualifiers: Hypotension type: unspecified hypotension type Qualified Code(s): I95.9 - Hypotension, unspecified (4) AMS (altered mental status) Status: Acute Qualifiers: Altered mental status type: transient alteration of awareness Qualified Code(s): R40.4 - Transient alteration of awareness
[2021-03-26] MEDS: ARICEPT TAB 10 MG PO SCH (21:13)
[2021-03-26] MEDS: PEPCID TAB 40 MG PO SCH (21:14)
[2021-03-26] MEDS: ZOCOR TAB 20 MG PO SCH (21:14)
[2021-03-27] MEDS: TYLENOL 325 MG TAB PO PRN ×2 (04:10→20:34)
[2021-03-27 05:09] LABS: ABG BASE EXCESS 7.3 mmol/L (-2.0-2.0)
[2021-03-27 05:10] LABS: ABG ALLEN TEST POS; ABG HCO3 33.1 mmol/L (22-26)
[2021-03-27] MEDS: ZOSYN VIAL 3.375 GRAMS 3.375 G in NS 100 ML IV + SPIKE MINIBAG* 100 ML IV SCH ×2 (05:17→21:33)
[2021-03-27 05:32] LABS: BASOPHILS % (AUTO) 0.3 % (0.2-1.0); EOSINOPHILS % (AUTO) 0.3 % (0.9-2.9); HEMATOCRIT 43.4 % (36.0-47.0); HEMOGLOBIN 14.4 g/dL (12.0-16.0); LYMPHOCYTES # (AUTO) 1.5 X10^3/uL (1.3-2.9); LYMPHOCYTES % (AUTO) 30.2 % (21.0-51.0); MEAN CORPUSCULAR HEMOGLOBIN 31.6 pg (27.0-34.0); MEAN CORPUSCULAR HGB CONC 33.2 g/dL (33.0-35.0); MEAN CORPUSCULAR VOLUME 95.2 fL (80.0-100.0); MEAN PLATELET VOLUME 8.5 fL (7.4-11.0); MONOCYTES # (AUTO) 0.6 x10^3/uL (0.3-0.8); MONOCYTES % (AUTO) 12.6 % (0.0-13.0); NEUTROPHILS # (AUTO) 2.9 x10^3/uL (2.2-4.8); NEUTROPHILS % (AUTO) 56.6 % (42.0-75.0); RED BLOOD COUNT 4.56 X10^6/uL (3.5-5.4); RED CELL DISTRIBUTION WIDTH 13.1 % (11.6-16.5); WHITE BLOOD COUNT 5.1 X10^3/uL (3.6-10.0)
[2021-03-27 05:43] LABS: BLOOD UREA NITROGEN 17 mg/dL (7-18); CHLORIDE 107 mmol/L (98-107); CREATININE 1.01 mg/dL (0.55-1.02); SODIUM 144 mmol/L (136-145); eGFR NON BLACK RACES 56 (>60)
[2021-03-27] MEDS: GLUCOTROL PO SCH (06:01)
[2021-03-27 06:15] LABS: ALANINE AMINOTRANSFERASE 23 Units/L (12-78); ALBUMIN 2.4 g/dL (3.4-5.0); ALKALINE PHOSPHATASE 134 Units/L (46-116); ASPARTATE AMINO TRANSFERASE 37 Units/L (15-37); COR CA(FOR HYPOALB) 10.3 mg/dL (8.5-10.1); TOTAL PROTEIN 6.8 g/dL (6.4-8.2)
[2021-03-27] MEDS: BROVANA IN SCH ×2 (08:47→20:30)
[2021-03-27] MEDS: PULMICORT NEB TX 0.5 MG NEB SCH ×2 (08:47→20:30)
[2021-03-27] MEDS ORDERED: HEMOCYTE-PLUS PO SCH (09:00)
[2021-03-27] MEDS ORDERED: SENNOSIDES DOCUSATE SODIUM PO SCH (09:00)
[2021-03-27] MEDS: DEXLANSOPRAZOLE 30 MG PO SCH (09:30)
[2021-03-27] MEDS: [UNRECOGNIZED DRUG - OTHER] PO SCH (09:30)
[2021-03-27] MEDS: DEPAKOTE D.R. TAB PO SCH (09:30)
[2021-03-27] MEDS: ARTIFICIAL TEARS DROPS OP SCH ×2 (09:30→20:35)
--- NOTE | 2021-03-27 10:59 | PCM.PROG ---
Progress Note - Progress Note for Day of Date of Exam: 03/27/21 - Subjective Subjective: WAS ADMITTED FOR TREATMENT OF PNEUMONIA DUE TO COVID-16, SEPSIS, HYPOTENSION, AND AMS. SHE HAS A PMH OF DEMENTIA, COPD, DM II, ANEMIA, CHF, CVA, GERD, HTN, DYSLIPIDEMIA, SCHIZOPHRENIA, CHOLECYSTECTOMY, AND HYSTERECTOMY. TODAY, SHE IS LYING IN BED WITH EYES CLOSED ON MORNING ROUNDS. SHE AWAKENS AND RESPONDS TO VERBAL STIMULI. PATIENT CONTINUES TO BE DISORIENTED. HER BLOOD PRESSURE HAS BEEN STABLE THROUGHOUT THE NIGHT. DOPAMINE DRIP HAS BEEN PAUSED. SHE IS CURRENTLY UTILIZING OXYGEN VIA NASAL CANNULA AT 4 LPM. OXYGEN SATURATIONS HAVE BEEN 91-96% THIS MORNING AND THROUGHOUT THE NIGHT. ON EXAMINATION, HEART IS REGULAR IN RATE AND RHYTHM. BILATERAL LUNGS NOTED WITH SCATTERED RHONCHI THROUGHOUT. ABDOMEN IS ROUND, SOFT, AND NON-TENDER WITH NORMAL BOWEL SOUNDS NOTED IN ALL QUADRANTS. HER VITALS THIS MORNING ARE: 99.0-59-14-94%-107/51. LABS WERE OBTAINED. ABNORMAL LAB VALUES INCLUDE THE FOLLOWING: PLT COUNT 130, GLUCOSE 110. A;L [JPS 134, CRP 159.60, ALBUMIN 2.4. LABS ARE OTHERWISE UNREMARKABLE. BLOOD CULTURES ARE PENDING. ABG REVEALED: PH 7.420, PC02 51, P02 61, HC03 33.1, 02 SAT 91, BASE EXCESS 7.3, A-A GRADIENT 132, FI02 36. SHE IS CURRENTLY RECEIVING NORMAL SALINE AT 50 ML/HR, REMDESIVIR 100MG IV DAILY, ZOSYN 3.375G IV TID, DUONEBS Q4H PRN, BROVANA BID, PULMICORT NEBS BID, IVERMECTIN, ZOFRAN 4MG IV Q6H PRN, OTBS ACHS, HUMULIN R SLIDING SCALE, AND HER HOME MEDICATIONS WERE RESUMED. WE WILL CONTINUE WITH CURRENT PLAN OF CARE TODAY AND ADD SOLU-MEDROL 40MG IV Q8H. OTHERWISE, WE PLAN TO FOLLOW UP WITH AM LABS AND CONTINUE TO MONITOR. TIME SPENT ON CLINICAL ASSESSMENT, REVIEWING LABS AND IMAGING, DECISION MAKING, AND DOCUMENTATION WAS GREATER THAN 45 MINUTES. - Past Medical Family Social History Past Med/Fam/Surg Hx: No changes since H&P Allergies: Allergies niacin Allergy (Mild, Verified 06/26/20 17:13) azithromycin Allergy (Verified 11/13/17 23:23) ciprofloxacin Allergy (Verified 11/13/17 23:23) codeine Allergy (Verified 11/13/17 23:23) Corticosteroids (Glucocorticoids) Allergy (Verified 11/13/17 23:23) levofloxacin Allergy (Verified 11/13/17 23:23) morphine Allergy (Verified 11/13/17 23:23) promethazine Allergy (Verified 11/13/17 23:23) topiramate Allergy (Verified 11/13/17 23:23) - Review of Systems ROS: No change since H&P - Vital Signs and I&O's Vital Signs: Temperature 99.0 F Pulse Rate [Apical] 59 Pulse Rate 60 Respiratory Rate 14 Blood Pressure [Right Arm] 145/63 Blood Pressure 107/51 O2 Sat by Pulse Oximetry 95 Intake and Output: Intake & Output 03/24/21 03/25/21 03/26/21 03/27/21 11:59 11:59 11:59 11:59 Intake Total 3861 / 3861 3529 / 3544 2603 / 2603 Output Total 950 / 950 3250 / 3250 1300 / 1300 Balance 2911 / 2911 279 / 294 1303 / 1303 - Physical Exam Oriented: Not Oriented, Unable to test Eyes: Normal Ear: Normal Nose: Normal Respiratory: Generalized, Diminished, Rhonchi Cardiovascular: Normal Auscultation: Bowel Sounds: Normal Tenderness: Normal Skin: Decreased Turgur Musculoskeletal: Instability Psychiatric: Other Affect: Quiet Speech Pattern: Appropriate - Laboratory and Diagnostics Result Diagrams: 03/27/21 04:25 03/27/21 04:25 Labs: 03/24/21 10:37 Blood Blood Culture - Preliminary 03/24/21 10:37 Blood Blood Culture - Preliminary Laboratory WBC 5.1 X10^3/uL (3.6-10.0) 03/27/21 04:25 RBC 4.56 X10^6/uL (3.5-5.4) 03/27/21 04:25 Hgb 14.4 g/dL (12.0-16.0) 03/27/21 04:25 Hct 43.4 % (36.0-47.0) 03/27/21 04:25 MCV 95.2 fL (80.0-100.0) 03/27/21 04:25 MCH 31.6 pg (27.0-34.0) 03/27/21 04:25 MCHC 33.2 g/dL (33.0-35.0) 03/27/21 04:25 RDW 13.1 % (11.6-16.5) 03/27/21 04:25 Plt Count 130 X10^3/uL (150.0-450.0) L 03/27/21 04:25 MPV 8.5 fL (7.4-11.0) 03/27/21 04:25 Neut % (Auto) 56.6 % (42.0-75.0) 03/27/21 04:25 Lymph % (Auto) 30.2 % (21.0-51.0) 03/27/21 04:25 [place] % (Auto) 12.6 % (0.0-13.0) 03/27/21 04:25 Eos % (Auto) 0.3 % (0.9-2.9) L 03/27/21 04:25 Baso % (Auto) 0.3 % (0.2-1.0) 03/27/21 04:25 Neut # (Auto) 2.9 x10^3/uL (2.2-4.8) 03/27/21 04:25 Lymph # (Auto) 1.5 X10^3/uL (1.3-2.9) 03/27/21 04:25 [place] # (Auto) 0.6 x10^3/uL (0.3-0.8) 03/27/21 04:25 Eos # (Auto) 0.0 x10^3/uL (0.0-0.2) 03/27/21 04:25 Baso # (Auto) 0.0 X10^3/uL (0.0-0.1) 03/27/21 04:25 Absolute Nucleated RBC 0.4 /100WBC 03/27/21 04:25 D-Dimer 0.51 ug/ml (0.0-0.57) 03/24/21 10:37 Sample Site Lrad 03/27/21 05:06 ABG pH 7.420 (7.35-7.45) 03/27/21 05:06 ABG pCO2 51.0 mmHg (35.0-45.0) H* 03/27/21 05:06 ABG pO2 61.0 mmHg (80.0-100.0) L 03/27/21 05:06 ABG HCO3 33.1 mmol/L (22-26) H* 03/27/21 05:06 ABG O2 Saturation 91.0 % (90-100) 03/27/21 05:06 ABG Base Excess 7.3 mmol/L (-2.0-2.0) H 03/27/21 05:06 Richard Test Pos 03/27/21 05:06 A-a Gradient 132.0 mmHg 03/27/21 05:06 FiO2 36.0 03/27/21 05:06 Blood Gas Comments Joelle abg well-mtf 03/27/21 05:06 Sodium 144 mmol/L (136-145) 03/27/21 04:25 Corrected Sodium TNP 03/27/21 04:25 Potassium 4.4 mmol/L (3.5-5.1) 03/27/21 04:25 Chloride 107 mmol/L (98-107) 03/27/21 04:25 Carbon Dioxide 31.0 mmol/L (21-32) 03/27/21 04:25 BUN 17 mg/dL (7-18) 03/27/21 04:25 Creatinine 1.01 mg/dL (0.55-1.02) 03/27/21 04:25 Est GFR (MDRD) Af Amer > 60 (>60) 03/27/21 04:25 Est GFR (MDRD) Non-Af 56 (>60) L 03/27/21 04:25 Glucose 110 mg/dL (65-99) H 03/27/21 04:25 POC Glucose (mg/dL) 81 mg/dL (65-99) 03/26/21 19:45 Lactic Acid 1.5 mmol/L (0.4-2.0) 03/24/21 10:37 Calcium 9.0 mg/dL (8.5-10.1) 03/27/21 04:25 Corrected Calcium 10.3 mg/dL (8.5-10.1) H 03/27/21 04:25 Total Bilirubin 0.30 mg/dL (0.2-1.0) 03/27/21 04:25 AST 37 Units/L (15-37) 03/27/21 04:25 ALT 23 Units/L (12-78) 03/27/21 04:25 Alkaline Phosphatase 134 Units/L (46-116) H 03/27/21 04:25 C-Reactive Protein 159.60 mg/L (0-3.0) H 03/27/21 04:25 B-Natriuretic Peptide 58.7 pg/mL (0-79) 03/27/21 04:25 Total Protein 6.8 g/dL (6.4-8.2) 03/27/21 04:25 Albumin 2.4 g/dL (3.4-5.0) L 03/27/21 04:25 Globulin 4.4 g/dL (2.5-4.5) 03/27/21 04:25 Albumin/Globulin Ratio 0.5 Ratio (1.1-2.1) L 03/27/21 04:25 Specimen Type Catherized urine 03/24/21 11:07 Urine Color Yellow (YELLOW) 03/24/21 11:07 Urine Appearance Clear (CLEAR) 03/24/21 11:07 Urine pH 5.0 (5.0 - 8.0) 03/24/21 11:07 Ur Specific [place] 1.015 (1.000-1.030) 03/24/21 11:07 Urine Protein Negative (NEGATIVE) 03/24/21 11:07 Urine Glucose (UA) 4+ (NEGATIVE) 03/24/21 11:07 Urine Ketones 1+ (NEGATIVE) 03/24/21 11:07 Urine Occult Blood 1+ (NEGATIVE) 03/24/21 11:07 Urine Nitrite Negative (NEGATIVE) 03/24/21 11:07 Urine Bilirubin Negative (NEGATIVE) 03/24/21 11:07 Urine Urobilinogen Normal (NORMAL) 03/24/21 11:07 Ur Leukocyte Esterase Negative (NEGATIVE) 03/24/21 11:07 Urine RBC 3-5 /HPF (0-3) A 03/24/21 11:07 Urine WBC 0-2 /HPF (0-5) 03/24/21 11:07 Ur Squamous Epith Cells Numerous /HPF (NEGATIVE) 03/24/21 11:07 Urine Bacteria Negative /HPF (NEGATIVE) 03/24/21 11:07 Ur Culture Indicated? No/not indicated 03/24/21 11:07 SARS-CoV-2 (PCR) Positive (NEGATIVE) A 03/24/21 10:23 Influenza Type A (PCR) Negative (NEGATIVE) 03/24/21 10:23 Influenza Type B (PCR) Negative (NEGATIVE) 03/24/21 10:23 RSV (PCR) Negative (NEGATIVE) 03/24/21 10:23 S. pyogenes (TEM-PCR) Not detected (NOT DETECT) 03/24/21 10:37 - Plan (1) Pneumonia due to COVID-19 virus Status: Acute Plan: SUPPLEMENTAL OXYGEN, IV ANTIBIOTICS, IV STEROIDS, NEB TX, IMMUNE SUPP LEMENTS (2) Sepsis Status: Acute Qualifiers: Sepsis type: sepsis due to unspecified organism Sepsis acute organ dysfunction status: unspecified Qualified Code(s): A41.9 - Sepsis, unspecified organism (3) Hypotension Status: Acute Qualifiers: Hypotension type: unspecified hypotension type Qualified Code(s): I95.9 - Hypotension, unspecified (4) AMS (altered mental status) Status: Acute Qualifiers: Altered mental status type: transient alteration of awareness Qualified Code(s): R40.4 - Transient alteration of awareness (5) Dementia Status: Chronic Qualifiers: Dementia type: unspecified type Dementia behavioral disturbance: without behavioral disturbance Qualified Code(s): F03.90 - Unspecified dementia without behavioral disturbance (6) COPD (chronic obstructive pulmonary disease) Status: Chronic Qualifiers: COPD type: unspecified COPD Qualified Code(s): J44.9 - Chronic obstructive pulmonary disease, unspecified (7) Diabetes mellitus Status: Chronic Qualifiers: Diabetes mellitus type: type 2 Diabetes mellitus skilled nursing insulin use: without skilled nursing use Diabetes mellitus complication status: without complication Qualified Code(s): E11.9 - Type 2 diabetes mellitus without complications Plan: Regular insulin sliding scale. (8) GERD (gastroesophageal reflux disease) Status: Chronic Qualifiers: Esophagitis presence: esophagitis presence not specified Qualified Code(s): K21.9 - Gastro-esophageal reflux disease without esophagitis
[2021-03-27] MEDS ORDERED: LEXAPRO ONE (11:11)
[2021-03-27] MEDS: SOLU-Medrol 40 MG VIAL IVP SCH ×2 (14:00→21:33)
[2021-03-27] MEDS: LOVENOX INJ 30 MG SYR SC SCH (20:32)
[2021-03-27] MEDS: NEURONTIN CAP 400 MG PO SCH (20:33)
[2021-03-27] MEDS: NAMENDA TAB 10 MG PO SCH (20:33)
[2021-03-27] MEDS: VIBRAMYCIN PO SCH (20:33)
[2021-03-27] MEDS: VITAMIN C PO SCH (20:34)
[2021-03-27] MEDS: SNACK - Diabetic Appropriate PO SCH (20:34)
[2021-03-27] MEDS: ZOCOR TAB 20 MG PO SCH (20:34)
[2021-03-27] MEDS: ARICEPT TAB 10 MG PO SCH (20:35)
[2021-03-27] MEDS: PEPCID TAB 40 MG PO SCH (20:35)
[2021-03-27] MEDS: NS 1,000 ML IV 1,000 ML IV SCH (23:41)
[2021-03-27] MEDS: ZOFRAN INJ 4 MG VIAL IVP PRN (23:42)
[2021-03-28] MEDS: SOLU-Medrol 40 MG VIAL IVP SCH ×2 (05:48→21:58)
[2021-03-28] MEDS: ZOSYN VIAL 3.375 GRAMS 3.375 G in NS 100 ML IV + SPIKE MINIBAG* 100 ML IV SCH (05:48)
[2021-03-28 05:57] LABS: ABG BASE EXCESS 4.8 mmol/L (-2.0-2.0)
[2021-03-28 05:58] LABS: ABG ALLEN TEST POS; ABG HCO3 31.6 mmol/L (22-26)
[2021-03-28 06:19] LABS: BASOPHILS % (AUTO) 0.2 % (0.2-1.0); HEMATOCRIT 39.5 % (36.0-47.0); HEMOGLOBIN 13.2 g/dL (12.0-16.0); LYMPHOCYTES # (AUTO) 0.8 X10^3/uL (1.3-2.9); LYMPHOCYTES % (AUTO) 37.4 % (21.0-51.0); MEAN CORPUSCULAR HEMOGLOBIN 31.6 pg (27.0-34.0); MEAN CORPUSCULAR HGB CONC 33.5 g/dL (33.0-35.0); MEAN CORPUSCULAR VOLUME 94.5 fL (80.0-100.0); MEAN PLATELET VOLUME 8.1 fL (7.4-11.0); MONOCYTES # (AUTO) 0.2 x10^3/uL (0.3-0.8); MONOCYTES % (AUTO) 7.3 % (0.0-13.0); NEUTROPHILS # (AUTO) 1.2 x10^3/uL (2.2-4.8); NEUTROPHILS % (AUTO) 55.1 % (42.0-75.0); RED BLOOD COUNT 4.18 X10^6/uL (3.5-5.4); WHITE BLOOD COUNT 2.2 X10^3/uL (3.6-10.0)
[2021-03-28] MEDS: GLUCOTROL PO SCH ×2 (06:30→20:44)
[2021-03-28 06:36] LABS: ALANINE AMINOTRANSFERASE 17 Units/L (12-78); ALBUMIN 2.2 g/dL (3.4-5.0); ALKALINE PHOSPHATASE 110 Units/L (46-116); ASPARTATE AMINO TRANSFERASE 26 Units/L (15-37); BLOOD UREA NITROGEN 29 mg/dL (7-18); CALCIUM 8.8 mg/dL (8.5-10.1); CARBON DIOXIDE 29.2 mmol/L (21-32); CHLORIDE 107 mmol/L (98-107); COR CA(FOR HYPOALB) 10.2 mg/dL (8.5-10.1); COR NA(FOR HYPERGLY) 148 mmol/L (136-145); CREATININE 0.93 mg/dL (0.55-1.02); SODIUM 146 mmol/L (136-145); TOTAL PROTEIN 6.4 g/dL (6.4-8.2); eGFR NON BLACK RACES > 60 (>60)
[2021-03-28 07:21] LABS: BAND NEUTROPHILS % 2 % (0-10); PLATELET MORPHOLOGY COMMENT NORMAL (NORMAL)
--- NOTE | 2021-03-28 07:22 | RAD ---
HISTORYCOVID+, SOBSTUDYCHEST, 1 [id number]/25/2022.TECHNIQUEAP view of the chestFINDINGSCardiac and mediastinal contours are within normal limits. Mild worsening in multifocal bilateral airspace and interstitial opacities. There is blunting of the costophrenic sulci. No pneumothorax.IMPRESSIONMild worsening of COVID pneumonia. Suspect small pleural effusions.Electronically signed by: Reymundo Mims (Mar 28, 2021 07:20:31)
[2021-03-28] MEDS: BROVANA IN SCH ×2 (08:35→20:30)
[2021-03-28] MEDS: PULMICORT NEB TX 0.5 MG NEB SCH ×2 (08:35→20:30)
[2021-03-28] MEDS ORDERED: LEXAPRO ONE (09:25)
[2021-03-28] MEDS: DEPAKOTE D.R. TAB PO SCH (09:47)
[2021-03-28] MEDS: PREVACID PO SCH (09:48)
[2021-03-28] MEDS: NAMENDA TAB 10 MG PO SCH ×2 (09:48→20:48)
[2021-03-28] MEDS: REMDESIVIR 100 MG in NS 250 ML IV 250 ML IV SCH (09:48)
[2021-03-28] MEDS: LOVENOX INJ 30 MG SYR SC SCH ×2 (09:50→20:47)
[2021-03-28] MEDS: IVERMECTIN PO SCH (09:51)
[2021-03-28] MEDS: LEXAPRO PO SCH (09:51)
[2021-03-28] MEDS: HEMOCYTE-PLUS PO SCH (09:52)
[2021-03-28] MEDS: NEURONTIN CAP 400 MG PO SCH ×2 (09:52→20:48)
[2021-03-28] MEDS: TAB-A-VITE PO SCH (09:53)
[2021-03-28] MEDS: VIBRAMYCIN PO SCH ×2 (09:53→21:58)
[2021-03-28] MEDS ORDERED: PHARMACY CONSULT - TPN XX SCH (10:00)
[2021-03-28 12:22] VITALS: BMI 38.0
--- NOTE | 2021-03-28 12:45 | PCM.PROG ---
Progress Note - Progress Note for Day of Date of Exam: 03/28/21 - Subjective Subjective: WAS ADMITTED FOR TREATMENT OF PNEUMONIA DUE TO COVID-16, SEPSIS, HYPOXIA, AND AMS. SHE HAS A PMH OF DEMENTIA, COPD, DM II, ANEMIA, CHF, CVA, GERD, HTN, DYSLIPIDEMIA, SCHIZOPHRENIA, CHOLECYSTECTOMY, AND HYSTERECTOMY. TODAY, SHE IS ALERT, LYING IN BED ON MORNING ROUNDS. SHE IS MORE ORIENTED AND ALERT TODAY THAN SHE HAS BEEN. SHE IS CURRENTLY UTILIZING HEATED HIGH FLOW OXYGEN. OXYGEN SATURATIONS HAVE BEEN 92-94% THIS MORNING AND THROUGHOUT THE NIGHT. ON EXAMINATION, HEART IS REGULAR IN RATE AND RHYTHM. BILATERAL LUNGS NOTED WITH SCATTERED RHONCHI THROUGHOUT. ABDOMEN IS ROUND, SOFT, AND NON-TENDER WITH NORMAL BOWEL SOUNDS NOTED IN ALL QUADRANTS. HER VITALS THIS MORNING ARE: 97 .6-46-16-92%-103/51. LABS WERE OBTAINED. ABNORMAL LAB VALUES INCLUDE THE FOLLOWING: WBC 2.2, PLT COUNT 139, SODIUM 146, BUN 29, GLUCOSE 178, CRP 83.80, BNP 262, ALBUMIN 2.2. LABS ARE OTHERWISE UNREMARKABLE. BLOOD CULTURES ARE PENDING. ABG REVEALED: PH 7.360, PC02 56, P02 74, HC03 31.6, 02 SAT 94, A-A GRADIENT 205, FI02 49. SHE IS CURRENTLY RECEIVING NORMAL SALINE AT 50 ML/HR, REMDESIVIR 100MG IV DAILY, ZOSYN 3.375G IV TID, SOLU-MEDROL 40MG IV Q8H, DUONEBS Q4H PRN, BROVANA BID, PULMICORT NEBS BID, IVERMECTIN, ZOFRAN 4MG IV Q6H PRN, OTBS ACHS, HUMULIN R SLIDING SCALE, AND HER HOME MEDICATIONS WERE RESUMED. WE WILL CONTINUE WITH CURRENT PLAN OF CARE TODAY AND TPN. OTHERWISE, WE PLAN TO FOLLOW UP WITH AM LABS AND CONTINUE TO MONITOR. TIME SPENT ON CLINICAL ASSESSMENT, REVIEWING LABS AND IMAGING, DECISION MAKING, AND DOCUMENTATION WAS GREATER THAN 45 MINUTES. - Past Medical Family Social History Past Med/Fam/Surg Hx: No changes since H&P Allergies: Allergies niacin Allergy (Mild, Verified 06/26/20 17:13) azithromycin Allergy (Verified 11/13/17 23:23) ciprofloxacin Allergy (Verified 11/13/17 23:23) codeine Allergy (Verified 11/13/17 23:23) Corticosteroids (Glucocorticoids) Allergy (Verified 11/13/17 23:23) levofloxacin Allergy (Verified 11/13/17 23:23) morphine Allergy (Verified 11/13/17 23:23) promethazine Allergy (Verified 11/13/17 23:23) topiramate Allergy (Verified 11/13/17 23:23) - Review of Systems ROS: No change since H&P - Vital Signs and I&O's Vital Signs: Temperature 97.6 F Pulse Rate [Apical] 59 Pulse Rate 51 Respiratory Rate 18 Blood Pressure [Right Arm] 145/63 Blood Pressure 123/58 O2 Sat by Pulse Oximetry 92 Intake and Output: Intake & Output 03/26/21 03/27/21 03/28/21 03/29/21 11:59 11:59 11:59 11:59 Intake Total 3529 / 3544 2603 / 2603 1830 / 1830 Output Total 3250 / 3250 1300 / 1300 900 / 900 Balance 279 / 294 1303 / 1303 930 / 930 - Physical Exam Oriented: Not Oriented, Unable to test Eyes: Normal Ear: Normal Nose: Normal Respiratory: Generalized, Diminished, Rhonchi Cardiovascular: Normal Auscultation: Bowel Sounds: Normal Palpation: Normal Tenderness: Normal Skin: Decreased [place] Musculoskeletal: Instability Psychiatric: Other Affect: Quiet Speech Pattern: Clear, Delayed - Laboratory and Diagnostics Result Diagrams: 03/28/21 05:41 03/28/21 05:41 Labs: 03/27/21 05:10 Blood Blood Culture - Preliminary 03/27/21 05:05 Blood Blood Culture - Preliminary 03/24/21 10:37 Blood Blood Culture - Preliminary 03/24/21 10:37 Blood Blood Culture - Preliminary Laboratory WBC 2.2 X10^3/uL (3.6-10.0) L 03/28/21 05:41 RBC 4.18 X10^6/uL (3.5-5.4) 03/28/21 05:41 Hgb 13.2 g/dL (12.0-16.0) 03/28/21 05:41 Hct 39.5 % (36.0-47.0) 03/28/21 05:41 MCV 94.5 fL (80.0-100.0) 03/28/21 05:41 MCH 31.6 pg (27.0-34.0) 03/28/21 05:41 MCHC 33.5 g/dL (33.0-35.0) 03/28/21 05:41 RDW 13.0 % (11.6-16.5) 03/28/21 05:41 Plt Count 139 X10^3/uL (150.0-450.0) L 03/28/21 05:41 Plt Count Comment Decreased (ADEQUATE) A 03/28/21 05:41 MPV 8.1 fL (7.4-11.0) 03/28/21 05:41 Neut % (Auto) 55.1 % (42.0-75.0) 03/28/21 05:41 Lymph % (Auto) 37.4 % (21.0-51.0) 03/28/21 05:41 [place] % (Auto) 7.3 % (0.0-13.0) 03/28/21 05:41 Eos % (Auto) 0.0 % (0.9-2.9) L 03/28/21 05:41 Baso % (Auto) 0.2 % (0.2-1.0) 03/28/21 05:41 Neut # (Auto) 1.2 x10^3/uL (2.2-4.8) L 03/28/21 05:41 Lymph # (Auto) 0.8 X10^3/uL (1.3-2.9) L 03/28/21 05:41 [place] # (Auto) 0.2 x10^3/uL (0.3-0.8) L 03/28/21 05:41 Eos # (Auto) 0.0 x10^3/uL (0.0-0.2) 03/28/21 05:41 Baso # (Auto) 0.0 X10^3/uL (0.0-0.1) 03/28/21 05:41 Absolute Nucleated RBC 0.1 /100WBC 03/28/21 05:41 Total Counted 50 03/28/21 05:41 Neutrophils % (Manual) 54 % (39-76) 03/28/21 05:41 Band Neutrophils % 2 % (0-10) 03/28/21 05:41 Lymphocytes % (Manual) 40 % (13-43) 03/28/21 05:41 Monocytes % (Manual) 4 % (4-9) 03/28/21 05:41 Plt Morphology Comment Normal (NORMAL) 03/28/21 05:41 RBC Morphology Normal (NORMAL) 03/28/21 05:41 D-Dimer 0.51 ug/ml (0.0-0.57) 03/24/21 10:37 Sample Site Rr 03/28/21 05:00 ABG pH 7.360 (7.35-7.45) 03/28/21 05:00 ABG pCO2 56.0 mmHg (35.0-45.0) H* 03/28/21 05:00 ABG pO2 74.0 mmHg (80.0-100.0) L 03/28/21 05:00 ABG HCO3 31.6 mmol/L (22-26) H* 03/28/21 05:00 ABG O2 Saturation 94.0 % (90-100) 03/28/21 05:00 ABG Base Excess 4.8 mmol/L (-2.0-2.0) H 03/28/21 05:00 Richard Test Pos 03/28/21 05:00 A-a Gradient 205.0 mmHg 03/28/21 05:00 FiO2 49.0 03/28/21 05:00 Blood Gas Comments Joelle well sw 03/28/21 05:00 Sodium 146 mmol/L (136-145) H 03/28/21 05:41 Corrected Sodium 148 mmol/L (136-145) H 03/28/21 05:41 Potassium 4.6 mmol/L (3.5-5.1) 03/28/21 05:41 Chloride 107 mmol/L (98-107) 03/28/21 05:41 Carbon Dioxide 29.2 mmol/L (21-32) 03/28/21 05:41 BUN 29 mg/dL (7-18) H 03/28/21 05:41 Creatinine 0.93 mg/dL (0.55-1.02) 03/28/21 05:41 Est GFR (MDRD) Af Amer > 60 (>60) 03/28/21 05:41 Est GFR (MDRD) Non-Af > 60 (>60) 03/28/21 05:41 Glucose 178 mg/dL (65-99) H 03/28/21 05:41 POC Glucose (mg/dL) 163 mg/dL (65-99) H 03/28/21 05:33 Lactic Acid 1.5 mmol/L (0.4-2.0) 03/24/21 10:37 Calcium 8.8 mg/dL (8.5-10.1) 03/28/21 05:41 Corrected Calcium 10.2 mg/dL (8.5-10.1) H 03/28/21 05:41 Total Bilirubin 0.30 mg/dL (0.2-1.0) 03/28/21 05:41 AST 26 Units/L (15-37) 03/28/21 05:41 ALT 17 Units/L (12-78) 03/28/21 05:41 Alkaline Phosphatase 110 Units/L (46-116) 03/28/21 05:41 C-Reactive Protein 83.80 mg/L (0-3.0) H 03/28/21 05:41 B-Natriuretic Peptide 262 pg/mL (0-79) H 03/28/21 05:41 Total Protein 6.4 g/dL (6.4-8.2) 03/28/21 05:41 Albumin 2.2 g/dL (3.4-5.0) L 03/28/21 05:41 Globulin 4.2 g/dL (2.5-4.5) 03/28/21 05:41 Albumin/Globulin Ratio 0.5 Ratio (1.1-2.1) L 03/28/21 05:41 Prealbumin 11.8 mg/dL (18-35.7) L 03/28/21 05:41 Specimen Type Catherized urine 03/24/21 11:07 Urine Color Yellow (YELLOW) 03/24/21 11:07 Urine Appearance Clear (CLEAR) 03/24/21 11:07 Urine pH 5.0 (5.0 - 8.0) 03/24/21 11:07 Ur Specific [place] 1.015 (1.000-1.030) 03/24/21 11:07 Urine Protein Negative (NEGATIVE) 03/24/21 11:07 Urine Glucose (UA) 4+ (NEGATIVE) 03/24/21 11:07 Urine Ketones 1+ (NEGATIVE) 03/24/21 11:07 Urine Occult Blood 1+ (NEGATIVE) 03/24/21 11:07 Urine Nitrite Negative (NEGATIVE) 03/24/21 11:07 Urine Bilirubin Negative (NEGATIVE) 03/24/21 11:07 Urine Urobilinogen Normal (NORMAL) 03/24/21 11:07 Ur Leukocyte Esterase Negative (NEGATIVE) 03/24/21 11:07 Urine RBC 3-5 /HPF (0-3) A 03/24/21 11:07 Urine WBC 0-2 /HPF (0-5) 03/24/21 11:07 Ur Squamous Epith Cells Numerous /HPF (NEGATIVE) 03/24/21 11:07 Urine Bacteria Negative /HPF (NEGATIVE) 03/24/21 11:07 Ur Culture Indicated? No/not indicated 03/24/21 11:07 SARS-CoV-2 (PCR) Positive (NEGATIVE) A 03/24/21 10:23 Influenza Type A (PCR) Negative (NEGATIVE) 03/24/21 10:23 Influenza Type B (PCR) Negative (NEGATIVE) 03/24/21 10:23 RSV (PCR) Negative (NEGATIVE) 03/24/21 10:23 S. pyogenes (TEM-PCR) Not detected (NOT DETECT) 03/24/21 10:37 - Plan (1) Pneumonia due to COVID-19 virus Status: Acute Plan: SUPPLEMENTAL OXYGEN, IV ANTIBIOTICS, TPN, IV STEROIDS, NEB TX, IMMUNE SUPPLEMENTS (2) Sepsis Status: Acute Qualifiers: Sepsis type: sepsis due to unspecified organism Sepsis acute organ dysfunction status: unspecified Qualified Code(s): A41.9 - Sepsis, unspecified organism Plan: Dopamine for associated hypotension. IV abx. (3) Hypotension Status: Acute Qualifiers: Hypotension type: unspecified hypotension type Qualified Code(s): I95.9 - Hypotension, unspecified (4) AMS (altered mental status) Status: Acute Qualifiers: Altered mental status type: transient alteration of awareness Qualified Code(s): R40.4 - Transient alteration of awareness (5) Dementia Status: Chronic Qualifiers: Dementia type: unspecified type Dementia behavioral disturbance: without behavioral disturbance Qualified Code(s): F03.90 - Unspecified dementia without behavioral disturbance (6) COPD (chronic obstructive pulmonary disease) Status: Chronic Qualifiers: COPD type: unspecified COPD Qualified Code(s): J44.9 - Chronic obstructive pulmonary disease, unspecified (7) Diabetes mellitus Status: Chronic Qualifiers: Diabetes mellitus type: type 2 Diabetes mellitus ferry terminal supervisor insulin use: without ferry terminal supervisor use Diabetes mellitus complication status: without complication Qualified Code(s): E11.9 - Type 2 diabetes mellitus without complications Plan: Regular insulin sliding scale. (8) GERD (gastroesophageal reflux disease) Status: Chronic Qualifiers: Esophagitis presence: esophagitis presence not specified Qualified Code(s): K21.9 - Gastro-esophageal reflux disease without esophagitis
[2021-03-28] MEDS: ZOCOR TAB 20 MG PO SCH (20:46)
[2021-03-28] MEDS: ARTIFICIAL TEARS DROPS OP SCH (20:48)
[2021-03-28] MEDS: VITAMIN C PO SCH (20:48)
[2021-03-28] MEDS: ARICEPT TAB 10 MG PO SCH (20:49)
[2021-03-28] MEDS: PEPCID TAB 40 MG PO SCH (20:49)
[2021-03-28] MEDS: SNACK - Diabetic Appropriate PO SCH (20:49)
[2021-03-28] MEDS: [UNRECOGNIZED DRUG - REMARK] IV SCH ×3 (21:58)
[2021-03-28] MEDS: D5W IV SCH (21:59)
[2021-03-28] MEDS: ZOSYN IV SCH (21:59)
[2021-03-28] MEDS: NS 1,000 ML IV 1,000 ML IV SCH (22:01)
[2021-03-28] MEDS ORDERED: D5W 100 ML IV 100 ML IV ONE (22:38)
[2021-03-28] MEDS: NovoLIN R (or HumuLIN R) SUBCUT PRN (22:43)
[2021-03-29 05:20] LABS: BASOPHILS % (AUTO) 0.1 % (0.2-1.0); HEMATOCRIT 39.7 % (36.0-47.0); HEMOGLOBIN 13.2 g/dL (12.0-16.0); LYMPHOCYTES # (AUTO) 1.1 X10^3/uL (1.3-2.9); LYMPHOCYTES % (AUTO) 19.4 % (21.0-51.0); MEAN CORPUSCULAR HEMOGLOBIN 31.3 pg (27.0-34.0); MEAN CORPUSCULAR HGB CONC 33.3 g/dL (33.0-35.0); MEAN CORPUSCULAR VOLUME 94.2 fL (80.0-100.0); MEAN PLATELET VOLUME 8.2 fL (7.4-11.0); MONOCYTES # (AUTO) 0.3 x10^3/uL (0.3-0.8); MONOCYTES % (AUTO) 4.9 % (0.0-13.0); NEUTROPHILS # (AUTO) 4.5 x10^3/uL (2.2-4.8); NEUTROPHILS % (AUTO) 75.6 % (42.0-75.0); RED BLOOD COUNT 4.22 X10^6/uL (3.5-5.4); RED CELL DISTRIBUTION WIDTH 12.9 % (11.6-16.5); WHITE BLOOD COUNT 5.9 X10^3/uL (3.6-10.0)
[2021-03-29 05:25] LABS: PREALBUMIN 13.7 mg/dL (18-35.7)
[2021-03-29] MEDS: SOLU-Medrol 40 MG VIAL IVP SCH ×4 (05:31→21:16)
[2021-03-29] MEDS: ZOSYN IV SCH ×3 (05:32→21:17)
[2021-03-29] MEDS: D5W IV SCH ×3 (05:32→21:17)
[2021-03-29 05:42] LABS: ALANINE AMINOTRANSFERASE 18 Units/L (12-78); ALBUMIN 2.2 g/dL (3.4-5.0); ALKALINE PHOSPHATASE 100 Units/L (46-116); ASPARTATE AMINO TRANSFERASE 22 Units/L (15-37); BLOOD UREA NITROGEN 34 mg/dL (7-18); CALCIUM 8.8 mg/dL (8.5-10.1); CARBON DIOXIDE 28.7 mmol/L (21-32); CHLORIDE 110 mmol/L (98-107); COR CA(FOR HYPOALB) 10.2 mg/dL (8.5-10.1); COR NA(FOR HYPERGLY) 147 mmol/L (136-145); SODIUM 145 mmol/L (136-145); TOTAL PROTEIN 6.4 g/dL (6.4-8.2); eGFR NON BLACK RACES > 60 (>60)
--- NOTE | 2021-03-29 06:28 | RAD ---
HISTORYCOVID-19, shortness of breathSTUDYChest AP [id number]/2022FINDINGSThe heart is enlarged. No congestive heart failure is noted. The lungs are well inflated. Diffuse interstitial infiltrates right greater than left are unchanged. There is some subsegmental atelectasis right lung base. No pleural effusions are identified. Bony thorax is unremarkable.IMPRESSIONDiffuse interstitial infiltrates right greater than left, unchangedRight basilar subsegmental atelectasisElectronically signed by: MAURISIO ENRIQUE (Mar 29, 2021 06:26:53)
[2021-03-29] MEDS: NS 1,000 ML IV 1,000 ML IV SCH ×4 (07:45→22:47)
[2021-03-29] MEDS: ARTIFICIAL TEARS DROPS OP SCH ×3 (07:48→21:17)
[2021-03-29] MEDS: VITAMIN C PO SCH ×5 (07:48→21:16)
[2021-03-29] MEDS: [UNRECOGNIZED DRUG - REMARK] IV SCH ×3 (07:49)
[2021-03-29] MEDS: [UNRECOGNIZED DRUG - OTHER] PO SCH ×2 (07:49→10:00)
[2021-03-29] MEDS: DEXLANSOPRAZOLE 30 MG PO SCH ×2 (07:49→10:00)
[2021-03-29] MEDS: GLUCOTROL PO SCH (08:55)
[2021-03-29] MEDS: PULMICORT NEB TX 0.5 MG NEB SCH ×2 (09:10→20:35)
[2021-03-29] MEDS: BROVANA IN SCH ×2 (09:10→20:35)
[2021-03-29] MEDS ORDERED: LEXAPRO ONE (09:30)
--- NOTE | 2021-03-29 09:41 | PCM.PROG ---
Progress Note - Progress Note for Day of Date of Exam: 03/29/21 - Subjective Subjective: WAS ADMITTED FOR TREATMENT OF PNEUMONIA DUE TO COVID-16, SEPSIS, HYPOXIA, AND AMS. SHE HAS A PMH OF DEMENTIA, COPD, DM II, ANEMIA, CHF, CVA, GERD, HTN, DYSLIPIDEMIA, SCHIZOPHRENIA, CHOLECYSTECTOMY, AND HYSTERECTOMY. TODAY, SHE IS ALERT, LYING IN BED ON MORNING ROUNDS. SHE IS CURRENTLY UTILIZING OXYGEN VIA NASAL CANNULA AT 4 LPM. OXYGEN SATURATIONS HAVE BEEN IN THE 90s THIS MORNING AND THROUGHOUT THE NIGHT. ON EXAMINATION, HEART IS REGULAR IN RATE AND RHYTHM. BILATERAL LUNGS NOTED WITH SCATTERED RHONCHI THROUGHOUT. ABDOMEN IS ROUND, SOFT, AND NON-TENDER WITH NORMAL BOWEL SOUNDS NOTED IN ALL QUADRANTS. HER VITALS THIS MORNING ARE: 97.9-50-18-95%-175/73. LABS WERE OBTAINED. ABNORMAL LAB VALUES INCLUDE THE FOLLOWING: CHLORIDE 110, BUN 34, GLUCOSE 177, CRP 50.30, BNP 229, ALBUMIN 2.2. LABS ARE OTHERWISE UNREMARKABLE. BLOOD CULTURES ARE PENDING. A CHEST XRAY WAS OBTAINED AND REVEALED: Diffuse interstitial infiltrates right greater than left, unchanged. Right basilar subsegmental atelectasis. SHE IS CURRENTLY RECEIVING NORMAL SALINE, TPN, REMDESIVIR 100MG IV DAILY, ZOSYN 3.375G IV TID, SOLU-MEDROL 40MG IV Q8H, DUONEBS Q4H PRN, BROVANA BID, PULMICORT NEBS BID, IVERMECTIN, ZOFRAN 4MG IV Q6H PRN, OTBS ACHS, HUMULIN R SLIDING SCALE, AND HER HOME MEDICATIONS WERE RESUMED. WE WILL CONTINUE WITH CURRENT PLAN OF CARE TODAY. OTHERWISE, WE PLAN TO FOLLOW UP WITH AM LABS AND CONTINUE TO MONITOR. TIME SPENT ON CLINICAL ASSESSMENT, REVIEWING LABS AND IMAGING, DECISION MAKING, AND DOCUMENTATION WAS GREATER THAN 45 MINUTES. - Past Medical Family Social History Past Med/Fam/Surg Hx: No changes since H&P Allergies: Allergies niacin Allergy (Mild, Verified 06/26/20 17:13) azithromycin Allergy (Verified 11/13/17 23:23) ciprofloxacin Allergy (Verified 11/13/17 23:23) codeine Allergy (Verified 11/13/17 23:23) Corticosteroids (Glucocorticoids) Allergy (Verified 11/13/17 23:23) levofloxacin Allergy (Verified 11/13/17 23:23) morphine Allergy (Verified 11/13/17 23:23) promethazine Allergy (Verified 11/13/17 23:23) topiramate Allergy (Verified 11/13/17 23:23) - Review of Systems ROS: No change since H&P - Vital Signs and I&O's Vital Signs: Temperature 97.9 F Pulse Rate [Apical] 59 Pulse Rate 50 Respiratory Rate 18 Blood Pressure [Right Arm] 145/63 Blood Pressure 175/73 O2 Sat by Pulse Oximetry 94 Intake and Output: Intake & Output 03/26/21 03/27/21 03/28/21 03/29/21 11:59 11:59 11:59 11:59 Intake Total 3529 / 3544 2603 / 2603 1830 / 1830 2029 / 2029 Output Total 3250 / 3250 1300 / 1300 900 / 900 950 / 950 Balance 279 / 294 1303 / 1303 930 / 930 1080 / 1080 - Physical Exam Oriented: Not Oriented Eyes: Normal Ear: Normal Nose: Normal Respiratory: Generalized, Diminished, Rhonchi Cardiovascular: Normal Auscultation: Bowel Sounds: Normal Palpation: Normal Tenderness: Normal Skin: Normal Musculoskeletal: Instability Psychiatric: Other Mood Description: Calm Affect: Quiet Speech Pattern: Clear, Delayed - Laboratory and Diagnostics Result Diagrams: 03/29/21 04:50 03/29/21 04:50 Labs: 03/27/21 05:10 Blood Blood Culture - Preliminary 03/27/21 05:05 Blood Blood Culture - Preliminary 03/24/21 10:37 Blood Blood Culture - Preliminary 03/24/21 10:37 Blood Blood Culture - Preliminary Laboratory WBC 5.9 X10^3/uL (3.6-10.0) 03/29/21 04:50 RBC 4.22 X10^6/uL (3.5-5.4) 03/29/21 04:50 Hgb 13.2 g/dL (12.0-16.0) 03/29/21 04:50 Hct 39.7 % (36.0-47.0) 03/29/21 04:50 MCV 94.2 fL (80.0-100.0) 03/29/21 04:50 MCH 31.3 pg (27.0-34.0) 03/29/21 04:50 MCHC 33.3 g/dL (33.0-35.0) 03/29/21 04:50 RDW 12.9 % (11.6-16.5) 03/29/21 04:50 Plt Count 161 X10^3/uL (150.0-450.0) 03/29/21 04:50 Plt Count Comment Decreased (ADEQUATE) A 03/28/21 05:41 MPV 8.2 fL (7.4-11.0) 03/29/21 04:50 Neut % (Auto) 75.6 % (42.0-75.0) H 03/29/21 04:50 Lymph % (Auto) 19.4 % (21.0-51.0) L 03/29/21 04:50 [place] % (Auto) 4.9 % (0.0-13.0) 03/29/21 04:50 Eos % (Auto) 0.0 % (0.9-2.9) L 03/29/21 04:50 Baso % (Auto) 0.1 % (0.2-1.0) L 03/29/21 04:50 Neut # (Auto) 4.5 x10^3/uL (2.2-4.8) 03/29/21 04:50 Lymph # (Auto) 1.1 X10^3/uL (1.3-2.9) L 03/29/21 04:50 [place] # (Auto) 0.3 x10^3/uL (0.3-0.8) 03/29/21 04:50 Eos # (Auto) 0.0 x10^3/uL (0.0-0.2) 03/29/21 04:50 Baso # (Auto) 0.0 X10^3/uL (0.0-0.1) 03/29/21 04:50 Absolute Nucleated RBC 0.0 /100WBC 03/29/21 04:50 Total Counted 50 03/28/21 05:41 Neutrophils % (Manual) 54 % (39-76) 03/28/21 05:41 Band Neutrophils % 2 % (0-10) 03/28/21 05:41 Lymphocytes % (Manual) 40 % (13-43) 03/28/21 05:41 Monocytes % (Manual) 4 % (4-9) 03/28/21 05:41 Plt Morphology Comment Normal (NORMAL) 03/28/21 05:41 RBC Morphology Normal (NORMAL) 03/28/21 05:41 D-Dimer 0.51 ug/ml (0.0-0.57) 03/24/21 10:37 Sample Site Rr 03/28/21 05:00 ABG pH 7.360 (7.35-7.45) 03/28/21 05:00 ABG pCO2 56.0 mmHg (35.0-45.0) H* 03/28/21 05:00 ABG pO2 74.0 mmHg (80.0-100.0) L 03/28/21 05:00 ABG HCO3 31.6 mmol/L (22-26) H* 03/28/21 05:00 ABG O2 Saturation 94.0 % (90-100) 03/28/21 05:00 ABG Base Excess 4.8 mmol/L (-2.0-2.0) H 03/28/21 05:00 Richard Test Pos 03/28/21 05:00 A-a Gradient 205.0 mmHg 03/28/21 05:00 FiO2 49.0 03/28/21 05:00 Blood Gas Comments Joelle well sw 03/28/21 05:00 Sodium 145 mmol/L (136-145) 03/29/21 04:50 Corrected Sodium 147 mmol/L (136-145) H 03/29/21 04:50 Potassium 4.3 mmol/L (3.5-5.1) 03/29/21 04:50 Chloride 110 mmol/L (98-107) H 03/29/21 04:50 Carbon Dioxide 28.7 mmol/L (21-32) 03/29/21 04:50 BUN 34 mg/dL (7-18) H 03/29/21 04:50 Creatinine 0.90 mg/dL (0.55-1.02) 03/29/21 04:50 Est GFR (MDRD) Af Amer > 60 (>60) 03/29/21 04:50 Est GFR (MDRD) Non-Af > 60 (>60) 03/29/21 04:50 Glucose 177 mg/dL (65-99) H 03/29/21 04:50 POC Glucose (mg/dL) 175 mg/dL (65-99) H 03/29/21 08:25 Lactic Acid 1.5 mmol/L (0.4-2.0) 03/24/21 10:37 Calcium 8.8 mg/dL (8.5-10.1) 03/29/21 04:50 Corrected Calcium 10.2 mg/dL (8.5-10.1) H 03/29/21 04:50 Total Bilirubin 0.20 mg/dL (0.2-1.0) 03/29/21 04:50 AST 22 Units/L (15-37) 03/29/21 04:50 ALT 18 Units/L (12-78) 03/29/21 04:50 Alkaline Phosphatase 100 Units/L (46-116) 03/29/21 04:50 C-Reactive Protein 50.30 mg/L (0-3.0) H 03/29/21 04:50 B-Natriuretic Peptide 229 pg/mL (0-79) H 03/29/21 04:50 Total Protein 6.4 g/dL (6.4-8.2) 03/29/21 04:50 Albumin 2.2 g/dL (3.4-5.0) L 03/29/21 04:50 Globulin 4.2 g/dL (2.5-4.5) 03/29/21 04:50 Albumin/Globulin Ratio 0.5 Ratio (1.1-2.1) L 03/29/21 04:50 Prealbumin 13.7 mg/dL (18-35.7) L 03/29/21 04:50 Specimen Type Catherized urine 03/24/21 11:07 Urine Color Yellow (YELLOW) 03/24/21 11:07 Urine Appearance Clear (CLEAR) 03/24/21 11:07 Urine pH 5.0 (5.0 - 8.0) 03/24/21 11:07 Ur Specific [place] 1.015 (1.000-1.030) 03/24/21 11:07 Urine Protein Negative (NEGATIVE) 03/24/21 11:07 Urine Glucose (UA) 4+ (NEGATIVE) 03/24/21 11:07 Urine Ketones 1+ (NEGATIVE) 03/24/21 11:07 Urine Occult Blood 1+ (NEGATIVE) 03/24/21 11:07 Urine Nitrite Negative (NEGATIVE) 03/24/21 11:07 Urine Bilirubin Negative (NEGATIVE) 03/24/21 11:07 Urine Urobilinogen Normal (NORMAL) 03/24/21 11:07 Ur Leukocyte Esterase Negative (NEGATIVE) 03/24/21 11:07 Urine RBC 3-5 /HPF (0-3) A 03/24/21 11:07 Urine WBC 0-2 /HPF (0-5) 03/24/21 11:07 Ur Squamous Epith Cells Numerous /HPF (NEGATIVE) 03/24/21 11:07 Urine Bacteria Negative /HPF (NEGATIVE) 03/24/21 11:07 Ur Culture Indicated? No/not indicated 03/24/21 11:07 SARS-CoV-2 (PCR) Positive (NEGATIVE) A 03/24/21 10:23 Influenza Type A (PCR) Negative (NEGATIVE) 03/24/21 10:23 Influenza Type B (PCR) Negative (NEGATIVE) 03/24/21 10:23 RSV (PCR) Negative (NEGATIVE) 03/24/21 10:23 S. pyogenes (TEM-PCR) Not detected (NOT DETECT) 03/24/21 10:37 - Plan (1) Pneumonia due to COVID-19 virus Status: Acute Plan: SUPPLEMENTAL OXYGEN, IV ANTIBIOTICS, TPN, IV STEROIDS, NEB TX, IMMUNE S UPPLEMENTS (2) Sepsis Status: Acute Qualifiers: Sepsis type: sepsis due to unspecified organism Sepsis acute organ dysfunction status: unspecified Qualified Code(s): A41.9 - Sepsis, unspecified organism Plan: WAS ADMITTED FOR TREATMENT OF PNEUMONIA DUE TO COVID-16, SEPSIS, HYPOXIA, AND AMS. SHE HAS A PMH OF DEMENTIA, COPD, DM II, ANEMIA, CHF, CVA, GERD, HTN, DYSLIPIDEMIA, SCHIZOPHRENIA, CHOLECYSTECTOMY, AND HYSTERECTOMY. TODAY, SHE IS ALERT, LYING IN BED ON MORNING ROUNDS. SHE IS CURRENTLY UTILIZING OXYGEN VIA NASAL CANNULA AT 4 LPM. OXYGEN SATURATIONS HAVE BEEN IN THE 90s THIS MORNING AND THROUGHOUT THE NIGHT. ON EXAMINATION, HEART IS REGULAR IN RATE AND RHYTHM. BILATERAL LUNGS NOTED WITH SCATTERED RHONCHI THROUGHOUT. ABDOMEN IS ROUND, SOFT, AND NON-TENDER WITH NORMAL BOWEL SOUNDS NOTED IN ALL QUADRANTS. HER VITALS THIS MORNING ARE: 97.9-50-18-95%-175/73. LABS WERE OBTAINED. ABNORMAL LAB VALUES INCLUDE THE FOLLOWING: CHLORIDE 110, BUN 34, GLUCOSE 177, CRP 50.30, BNP 229, ALBUMIN 2.2. LABS ARE OTHERWISE UNREMARKABLE. BLOOD CULTURES ARE PENDING. A CHEST XRAY WAS OBTAINED AND REVEALED: Diffuse interstitial infiltrates right greater than left, unchanged. Right basilar subsegmental atelectasis. SHE IS CURRENTLY RECEIVING NORMAL SALINE, TPN, REMDESIVIR 100MG IV DAILY, ZOSYN 3.375G IV TID, SOLU-MEDROL 40MG IV Q8H, DUONEBS Q4H PRN, BROVANA BID, PULMICORT NEBS BID, IVERMECTIN, ZOFRAN 4MG IV Q6H PRN, OTBS ACHS, HUMULIN R SLIDING SCALE, AND HER HOME MEDICATIONS WERE RESUMED. WE WILL CONTINUE WITH CURRENT PLAN OF CARE TODAY. OTHERWISE, WE PLAN TO FOLLOW UP WITH AM LABS AND CONTINUE TO MONITOR. TIME SPENT ON CLINICAL ASSESSMENT, REVIEWING LABS AND IMAGING, DECISION MAKING, AND DOCUMENTATION WAS GREATER THAN 45 MINUTES. (3) Hypotension Status: Acute Qualifiers: Hypotension type: unspecified hypotension type Qualified Code(s): I95.9 - Hypotension, unspecified (4) AMS (altered mental status) Status: Acute Qualifiers: Altered mental status type: transient alteration of awareness Qualified Code(s): R40.4 - Transient alteration of awareness (5) Dementia Status: Chronic Qualifiers: Dementia type: unspecified type Dementia behavioral disturbance: without behavioral disturbance Qualified Code(s): F03.90 - Unspecified dementia without behavioral disturbance (6) COPD (chronic obstructive pulmonary disease) Status: Chronic Qualifiers: COPD type: unspecified COPD Qualified Code(s): J44.9 - Chronic obstructive pulmonary disease, unspecified (7) Diabetes mellitus Status: Chronic Qualifiers: Diabetes mellitus type: type 2 Diabetes mellitus machine long goods helper insulin use: without machine long goods helper use Diabetes mellitus complication status: without complication Qualified Code(s): E11.9 - Type 2 diabetes mellitus without complications Plan: Regular insulin sliding scale. (8) GERD (gastroesophageal reflux disease) Status: Chronic Qualifiers: Esophagitis presence: esophagitis presence not specified Qualified Code(s): K21.9 - Gastro-esophageal reflux disease without esophagitis
[2021-03-29] MEDS: LEXAPRO PO SCH (10:00)
[2021-03-29] MEDS: HEMOCYTE-PLUS PO SCH (10:00)
[2021-03-29] MEDS: VIBRAMYCIN PO SCH ×2 (10:00→21:16)
[2021-03-29] MEDS: NEURONTIN CAP 400 MG PO SCH ×2 (10:00→21:15)
[2021-03-29] MEDS: IVERMECTIN PO SCH (10:00)
[2021-03-29] MEDS: PREVACID PO SCH (10:00)
[2021-03-29] MEDS: DEPAKOTE D.R. TAB PO SCH (10:00)
[2021-03-29] MEDS: REMDESIVIR 100 MG in NS 250 ML IV 250 ML IV SCH (10:00)
[2021-03-29] MEDS: TAB-A-VITE PO SCH (10:00)
[2021-03-29] MEDS: NAMENDA TAB 10 MG PO SCH ×2 (10:00→21:15)
[2021-03-29] MEDS: LOVENOX INJ 30 MG SYR SC SCH ×2 (10:31→21:15)
[2021-03-29] MEDS: NovoLIN R (or HumuLIN R) SUBCUT PRN ×2 (13:27→17:04)
[2021-03-29] MEDS: SNACK - Diabetic Appropriate PO SCH (21:16)
[2021-03-29] MEDS: PEPCID TAB 40 MG PO SCH (21:16)
[2021-03-29] MEDS: ZOCOR TAB 20 MG PO SCH (21:17)
[2021-03-29] MEDS: ARICEPT TAB 10 MG PO SCH (21:17)
[2021-03-29] MEDS: TYLENOL 325 MG TAB PO PRN (22:50)
[2021-03-30 05:21] LABS: ABG BASE EXCESS -1.3 mmol/L (-2.0-2.0); ABG HCO3 24.8 mmol/L (22-26)
[2021-03-30 05:29] LABS: BASOPHILS % (AUTO) 0.1 % (0.2-1.0); HEMATOCRIT 39.8 % (36.0-47.0); HEMOGLOBIN 13.2 g/dL (12.0-16.0); LYMPHOCYTES # (AUTO) 1.7 X10^3/uL (1.3-2.9); LYMPHOCYTES % (AUTO) 32.6 % (21.0-51.0); MEAN CORPUSCULAR HEMOGLOBIN 31.4 pg (27.0-34.0); MEAN CORPUSCULAR HGB CONC 33.1 g/dL (33.0-35.0); MEAN CORPUSCULAR VOLUME 94.9 fL (80.0-100.0); MEAN PLATELET VOLUME 8.3 fL (7.4-11.0); MONOCYTES # (AUTO) 0.4 x10^3/uL (0.3-0.8); MONOCYTES % (AUTO) 7.4 % (0.0-13.0); NEUTROPHILS # (AUTO) 3.2 x10^3/uL (2.2-4.8); NEUTROPHILS % (AUTO) 59.9 % (42.0-75.0); RED CELL DISTRIBUTION WIDTH 12.9 % (11.6-16.5); WHITE BLOOD COUNT 5.4 X10^3/uL (3.6-10.0)
[2021-03-30 05:33] LABS: ALANINE AMINOTRANSFERASE 22 Units/L (12-78); ALBUMIN 2.2 g/dL (3.4-5.0); ALKALINE PHOSPHATASE 94 Units/L (46-116); ASPARTATE AMINO TRANSFERASE 25 Units/L (15-37); BLOOD UREA NITROGEN 38 mg/dL (7-18); CALCIUM 8.5 mg/dL (8.5-10.1); CARBON DIOXIDE 29.5 mmol/L (21-32); CHLORIDE 111 mmol/L (98-107); COR CA(FOR HYPOALB) 9.9 mg/dL (8.5-10.1); COR NA(FOR HYPERGLY) 148 mmol/L (136-145); CREATININE 0.79 mg/dL (0.55-1.02); SODIUM 146 mmol/L (136-145); TOTAL PROTEIN 6.2 g/dL (6.4-8.2); eGFR NON BLACK RACES > 60 (>60)
--- NOTE | 2021-03-30 05:57 | RAD ---
PROCEDURE: Chest X-ray 1 View .HISTORY: Dyspnea and COVID-19.TECHNIQUE: AP view .COMPARISON: 03/29/2021.TECHNICAL QUALITY: Satisfactory .FINDINGS:Unremarkable cardio mediastinal silhouette and normal central vascularity.Increased patchy consolidation right lung field. No definite consolidation on the left. No pleural fluid.IMPRESSION:Mild increase pneumonia on the right.Electronically signed by: Francisco J Anaya (Mar 30, 2021 05:56:07)
[2021-03-30] MEDS: SOLU-Medrol 40 MG VIAL IVP SCH ×3 (05:59→21:14)
[2021-03-30] MEDS: ZOSYN IV SCH ×3 (05:59→21:14)
[2021-03-30] MEDS: D5W IV SCH ×3 (05:59→21:14)
[2021-03-30] MEDS: NS 1,000 ML IV 1,000 ML IV SCH (06:14)
[2021-03-30] MEDS ORDERED: COLACE CAP 100 MG PO PRN (07:34)
[2021-03-30] MEDS: GLUCOTROL PO SCH (08:00)
[2021-03-30] MEDS ORDERED: LEXAPRO ONE (08:01)
[2021-03-30] MEDS: LEXAPRO PO SCH (08:07)
[2021-03-30] MEDS: [UNRECOGNIZED DRUG - REMARK] IV SCH ×6 (08:07→08:08)
[2021-03-30] MEDS: ARTIFICIAL TEARS DROPS OP SCH ×2 (08:08→21:13)
[2021-03-30] MEDS: DEPAKOTE D.R. TAB PO SCH (08:12)
[2021-03-30] MEDS: IVERMECTIN PO SCH (08:13)
[2021-03-30] MEDS: NAMENDA TAB 10 MG PO SCH ×2 (08:13→21:13)
[2021-03-30] MEDS: HEMOCYTE-PLUS PO SCH (08:13)
[2021-03-30] MEDS: BROVANA IN SCH ×2 (09:06→20:46)
[2021-03-30] MEDS: PULMICORT NEB TX 0.5 MG NEB SCH ×2 (09:06→20:46)
[2021-03-30] MEDS: LOVENOX INJ 30 MG SYR SC SCH ×2 (09:07→21:13)
[2021-03-30] MEDS: NEURONTIN CAP 400 MG PO SCH ×2 (09:07→21:13)
[2021-03-30] MEDS: COZAAR PO SCH ×2 (09:07→18:11)
[2021-03-30] MEDS: VIBRAMYCIN PO SCH ×2 (09:08→21:14)
[2021-03-30] MEDS: TAB-A-VITE PO SCH (09:08)
[2021-03-30] MEDS: VITAMIN C PO SCH ×4 (09:08→21:14)
[2021-03-30] MEDS: LASIX IVP SCH ×2 (11:00→21:13)
[2021-03-30] MEDS: NovoLIN R (or HumuLIN R) SUBCUT PRN ×3 (13:12→21:45)
[2021-03-30] MEDS: [UNRECOGNIZED DRUG - REMARK] IV SCH ×3 (17:18)
[2021-03-30 19:22] LABS: ABG ALLEN TEST POS
[2021-03-30] MEDS: SNACK - Diabetic Appropriate PO SCH (20:58)
[2021-03-30] MEDS: ARICEPT TAB 10 MG PO SCH (21:12)
[2021-03-30] MEDS: PEPCID TAB 40 MG PO SCH (21:14)
[2021-03-30] MEDS: ZOCOR TAB 20 MG PO SCH (21:14)
[2021-03-31 05:10] LABS: BASOPHILS # (AUTO) 0.1 X10^3/uL (0.0-0.1); BASOPHILS % (AUTO) 2.3 % (0.2-1.0); EOSINOPHILS % (AUTO) 0.2 % (0.9-2.9); HEMATOCRIT 39.5 % (36.0-47.0); HEMOGLOBIN 13.2 g/dL (12.0-16.0); LYMPHOCYTES # (AUTO) 1.5 X10^3/uL (1.3-2.9); LYMPHOCYTES % (AUTO) 25.2 % (21.0-51.0); MEAN CORPUSCULAR HEMOGLOBIN 31.3 pg (27.0-34.0); MEAN CORPUSCULAR HGB CONC 33.5 g/dL (33.0-35.0); MEAN CORPUSCULAR VOLUME 93.3 fL (80.0-100.0); MEAN PLATELET VOLUME 8.6 fL (7.4-11.0); MONOCYTES # (AUTO) 0.5 x10^3/uL (0.3-0.8); MONOCYTES % (AUTO) 7.8 % (0.0-13.0); NEUTROPHILS # (AUTO) 3.7 x10^3/uL (2.2-4.8); NEUTROPHILS % (AUTO) 64.5 % (42.0-75.0); RED BLOOD COUNT 4.23 X10^6/uL (3.5-5.4); RED CELL DISTRIBUTION WIDTH 12.7 % (11.6-16.5); WHITE BLOOD COUNT 5.8 X10^3/uL (3.6-10.0)
[2021-03-31 05:22] LABS: ALANINE AMINOTRANSFERASE 26 Units/L (12-78); ALBUMIN 2.3 g/dL (3.4-5.0); ALKALINE PHOSPHATASE 90 Units/L (46-116); ASPARTATE AMINO TRANSFERASE 23 Units/L (15-37); BLOOD UREA NITROGEN 35 mg/dL (7-18); CALCIUM 8.6 mg/dL (8.5-10.1); CARBON DIOXIDE 34.5 mmol/L (21-32); CHLORIDE 110 mmol/L (98-107); COR NA(FOR HYPERGLY) 149 mmol/L (136-145); CREATININE 0.73 mg/dL (0.55-1.02); SODIUM 148 mmol/L (136-145); TOTAL PROTEIN 6.2 g/dL (6.4-8.2); eGFR NON BLACK RACES > 60 (>60)
[2021-03-31] MEDS: ZOSYN IV SCH ×3 (06:07→21:20)
[2021-03-31] MEDS: SOLU-Medrol 40 MG VIAL IVP SCH ×3 (06:07→21:20)
[2021-03-31] MEDS: D5W IV SCH ×3 (06:07→21:20)
--- NOTE | 2021-03-31 06:36 | RAD ---
HISTORYSOBSTUDYCHEST, 1 VIEWCOMPARISONJanva [facility] of [facility] [place] 2021TECHNIQUEPortable chest radiographFINDINGSAeration of the lungs is slowly improving. There are resolving hazy background alveolar opacities. Residual coarsened interstitial lung markings persist within the bilateral lung bases. The pleural spaces remain clear. The heart size is stable. There is residual accentuation of the aortic knob which may be magnified by rotation on the film. No free air or pneumothorax identified. No acute osseous abnormalities.IMPRESSIONImproved aeration of the lungs associated with resolving alveolar opacities associated with pneumonia.Subjectively uncoiled, tortuous, and ectatic morphology of the thoracic aorta which is unchanged from prior.Electronically signed by: JENNIFFER MARC (Mar 31, 2021 06:35:54)
[2021-03-31] MEDS: GLUCOTROL PO SCH (08:00)
[2021-03-31] MEDS ORDERED: LEXAPRO ONE (08:33)
[2021-03-31] MEDS: LEXAPRO PO SCH (08:49)
[2021-03-31] MEDS: ARTIFICIAL TEARS DROPS OP SCH ×2 (08:50→20:04)
[2021-03-31] MEDS: COZAAR PO SCH (08:50)
[2021-03-31] MEDS: [UNRECOGNIZED DRUG - REMARK] IV SCH ×3 (08:50)
[2021-03-31] MEDS: NEURONTIN CAP 400 MG PO SCH ×2 (08:51→20:06)
[2021-03-31] MEDS: IVERMECTIN PO SCH (08:51)
[2021-03-31] MEDS: HEMOCYTE-PLUS PO SCH (08:51)
[2021-03-31] MEDS: NAMENDA TAB 10 MG PO SCH ×2 (08:51→20:06)
[2021-03-31] MEDS: LOVENOX INJ 30 MG SYR SC SCH ×2 (08:51→20:05)
[2021-03-31] MEDS: VIBRAMYCIN PO SCH ×2 (08:52→20:07)
[2021-03-31] MEDS: TAB-A-VITE PO SCH (08:52)
[2021-03-31] MEDS: VITAMIN C PO SCH ×4 (08:52→20:07)
[2021-03-31] MEDS: PULMICORT NEB TX 0.5 MG NEB SCH ×2 (09:10→21:19)
[2021-03-31] MEDS: BROVANA IN SCH ×2 (09:10→21:19)
[2021-03-31] MEDS: DEPAKOTE D.R. TAB PO SCH (10:00)
--- NOTE | 2021-03-31 11:27 | PCM.PROG ---
Progress Note Progress Note for Day of Date of Exam: 03/31/21 Subjective Subjective: PT IS A 76 YEAR OLD FEMALE ADMITTED FOR TREATMENT OF PNEUMONIA DUE TO COVID-16, SEPSIS, HYPOXIA, AND AMS. SHE HAS A PMH OF DEMENTIA, COPD, DM II, ANEMIA, CHF, CVA, GERD, HTN, DYSLIPIDEMIA, SCHIZOPHRENIA, CHOLECYSTECTOMY, AND HYSTERECTOMY. THIS MORNING SHE IS RESTING COMFORTABLY IN BED. SHE IS CURRENTLY UTILIZING OXYGEN VIA NASAL CANNULA AT 3 LPM. OXYGEN SATURATIONS HAVE BEEN IN THE 90s THIS MORNING AND THROUGHOUT THE NIGHT. LABS/IMAGING: WBC 5.8, HGB 13.2, PLT 170, NA 148, K 3.1, CREATININE 0.73, GLUCOSE 149, BLOOD CULTURES ARE PENDING. A CHEST XRAY WAS OBTAINED AND REVEALED: Improved aeration of the lungs associated with resolving alveolar opacities associated with pneumonia. SHE IS CURRENTLY RECEIVING NORMAL SALINE, TPN, REMDESIVIR 100MG IV DAILY, ZOSYN 3.375G IV TID, SOLU-MEDROL 40MG IV Q8H, DUONEBS Q4H PRN, BROVANA BID, PULMICORT NEBS BID, IVERMECTIN, ZOFRAN 4MG IV Q6H PRN, OTBS ACHS, HUMULIN R SLIDING SCALE, AND HER HOME MEDICATIONS WERE RESUMED. WILL REPLETE POTASSIUM PER PROTOCOL. OTHERWISE WILL CONTINUE WITH CURRENT PLAN OF CARE TODAY. CONTINUE TO MONITOR AND FOLLOW UP WITH AM LABS/CXR. TIME SPENT ON CLINICAL ASSESSMENT, REVIEWING LABS AND IMAGING, DECISION MAKING, AND DOCUMENTATION WAS GREATER THAN 45 MINUTES. Past Medical Family Social History Past Med/Fam/Surg Hx: No changes since H&P Allergies: Allergies niacin Allergy (Mild, Verified 06/26/20 17:13) azithromycin Allergy (Verified 11/13/17 23:23) ciprofloxacin Allergy (Verified 11/13/17 23:23) codeine Allergy (Verified 11/13/17 23:23) Corticosteroids (Glucocorticoids) Allergy (Verified 11/13/17 23:23) levofloxacin Allergy (Verified 11/13/17 23:23) morphine Allergy (Verified 11/13/17 23:23) promethazine Allergy (Verified 11/13/17 23:23) topiramate Allergy (Verified 11/13/17 23:23) Review of Systems ROS: No change since H&P Vital Signs and I&O's Vital Signs: Temperature 97.8 F Pulse Rate [Apical] 59 Pulse Rate 44 Respiratory Rate 17 Blood Pressure [Right Arm] 145/63 Blood Pressure 154/64 O2 Sat by Pulse Oximetry 95 Intake and Output: Intake & Output 03/28/21 03/29/21 03/30/21 03/31/21 23:59 23:59 23:59 23:59 Intake Total 1830 / 1830 2680 / 2680 2266 / 2266 331 / 331 Output Total 700 / 700 1600 / 1600 2725 / 2725 1650 / 1650 Balance 1130 / 1130 5616 / 1080 -459 / -459 -1319 / -1319 Physical Exam Oriented: Not Oriented Eyes: Normal Ear: Normal Nose: Normal Respiratory: Generalized, Diminished and Rhonchi Cardiovascular: Normal Auscultation: Bowel Sounds: Normal Tenderness: Normal Skin: Normal Musculoskeletal: Instability Psychiatric: Other Mood Description: Calm Affect: Quiet Speech Pattern: Clear and Delayed Laboratory and Diagnostics Result Diagrams: 03/31/21 04:24 03/31/21 04:24 Labs: 03/24/21 10:37 Blood Blood Culture - Final 03/24/21 10:37 Blood Blood Culture - Final 03/27/21 05:10 Blood Blood Culture - Preliminary 03/27/21 05:05 Blood Blood Culture - Preliminary Laboratory WBC 5.8 X10^3/uL (3.6-10.0) 03/31/21 04:24 RBC 4.23 X10^6/uL (3.5-5.4) 03/31/21 04:24 Hgb 13.2 g/dL (12.0-16.0) 03/31/21 04:24 Hct 39.5 % (36.0-47.0) 03/31/21 04:24 MCV 93.3 fL (80.0-100.0) 03/31/21 04:24 MCH 31.3 pg (27.0-34.0) 03/31/21 04:24 MCHC 33.5 g/dL (33.0-35.0) 03/31/21 04:24 RDW 12.7 % (11.6-16.5) 03/31/21 04:24 Plt Count 170 X10^3/uL (150.0-450.0) 03/31/21 04:24 Plt Count Comment Decreased (ADEQUATE) A 03/28/21 05:41 MPV 8.6 fL (7.4-11.0) 03/31/21 04:24 Neut % (Auto) 64.5 % (42.0-75.0) 03/31/21 04:24 Lymph % (Auto) 25.2 % (21.0-51.0) 03/31/21 04:24 [place] % (Auto) 7.8 % (0.0-13.0) 03/31/21 04:24 Eos % (Auto) 0.2 % (0.9-2.9) L 03/31/21 04:24 Baso % (Auto) 2.3 % (0.2-1.0) H 03/31/21 04:24 Neut # (Auto) 3.7 x10^3/uL (2.2-4.8) 03/31/21 04:24 Lymph # (Auto) 1.5 X10^3/uL (1.3-2.9) 03/31/21 04:24 [place] # (Auto) 0.5 x10^3/uL (0.3-0.8) 03/31/21 04:24 Eos # (Auto) 0.0 x10^3/uL (0.0-0.2) 03/31/21 04:24 Baso # (Auto) 0.1 X10^3/uL (0.0-0.1) 03/31/21 04:24 Absolute Nucleated RBC 0.1 /100WBC 03/31/21 04:24 Total Counted 50 03/28/21 05:41 Neutrophils % (Manual) 54 % (39-76) 03/28/21 05:41 Band Neutrophils % 2 % (0-10) 03/28/21 05:41 Lymphocytes % (Manual) 40 % (13-43) 03/28/21 05:41 Monocytes % (Manual) 4 % (4-9) 03/28/21 05:41 Plt Morphology Comment Normal (NORMAL) 03/28/21 05:41 RBC Morphology Normal (NORMAL) 03/28/21 05:41 D-Dimer 0.51 ug/ml (0.0-0.57) 03/24/21 10:37 Sample Site Rrad 03/30/21 04:59 ABG pH 7.340 (7.35-7.45) L 03/30/21 04:59 ABG pCO2 46.0 mmHg (35.0-45.0) H 03/30/21 04:59 ABG pO2 140.0 mmHg (80.0-100.0) H 03/30/21 04:59 ABG HCO3 24.8 mmol/L (22-26) 03/30/21 04:59 ABG O2 Saturation 99.0 % (90-100) 03/30/21 04:59 ABG Base Excess -1.3 mmol/L (-2.0-2.0) 03/30/21 04:59 Richard Test Pos 03/30/21 04:59 A-a Gradient 2.0 mmHg 03/30/21 04:59 FiO2 28.0 03/30/21 04:59 Blood Gas Comments [facility] well kh/ms 03/30/21 04:59 Sodium 148 mmol/L (136-145) H 03/31/21 04:24 Corrected Sodium 149 mmol/L (136-145) H 03/31/21 04:24 Potassium 3.1 mmol/L (3.5-5.1) L 03/31/21 04:24 Chloride 110 mmol/L (98-107) H 03/31/21 04:24 Carbon Dioxide 34.5 mmol/L (21-32) H 03/31/21 04:24 BUN 35 mg/dL (7-18) H 03/31/21 04:24 Creatinine 0.73 mg/dL (0.55-1.02) 03/31/21 04:24 Est GFR (MDRD) Af Amer > 60 (>60) 03/31/21 04:24 Est GFR (MDRD) Non-Af > 60 (>60) 03/31/21 04:24 Glucose 149 mg/dL (65-99) H 03/31/21 04:24 POC Glucose (mg/dL) 266 mg/dL (65-99) H 03/30/21 19:29 Lactic Acid 1.5 mmol/L (0.4-2.0) 03/24/21 10:37 Calcium 8.6 mg/dL (8.5-10.1) 03/31/21 04:24 Corrected Calcium 10.0 mg/dL (8.5-10.1) 03/31/21 04:24 Magnesium 1.9 mg/dL (1.7-2.9) 03/31/21 04:24 Total Bilirubin 0.30 mg/dL (0.2-1.0) 03/31/21 04:24 AST 23 Units/L (15-37) 03/31/21 04:24 ALT 26 Units/L (12-78) 03/31/21 04:24 Alkaline Phosphatase 90 Units/L (46-116) 03/31/21 04:24 C-Reactive Protein 11.80 mg/L (0-3.0) H 03/31/21 04:24 B-Natriuretic Peptide 476 pg/mL (0-79) H 03/31/21 04:24 Total Protein 6.2 g/dL (6.4-8.2) L 03/31/21 04:24 Albumin 2.3 g/dL (3.4-5.0) L 03/31/21 04:24 Globulin 3.9 g/dL (2.5-4.5) 03/31/21 04:24 Albumin/Globulin Ratio 0.6 Ratio (1.1-2.1) L 03/31/21 04:24 Prealbumin 13.7 mg/dL (18-35.7) L 03/29/21 04:50 Specimen Type Catherized urine 03/24/21 11:07 Urine Color Yellow (YELLOW) 03/24/21 11:07 Urine Appearance Clear (CLEAR) 03/24/21 11:07 Urine pH 5.0 (5.0 - 8.0) 03/24/21 11:07 Ur Specific [place] 1.015 (1.000-1.030) 03/24/21 11:07 Urine Protein Negative (NEGATIVE) 03/24/21 11:07 Urine Glucose (UA) 4+ (NEGATIVE) 03/24/21 11:07 Urine Ketones 1+ (NEGATIVE) 03/24/21 11:07 Urine Occult Blood 1+ (NEGATIVE) 03/24/21 11:07 Urine Nitrite Negative (NEGATIVE) 03/24/21 11:07 Urine Bilirubin Negative (NEGATIVE) 03/24/21 11:07 Urine Urobilinogen Normal (NORMAL) 03/24/21 11:07 Ur Leukocyte Esterase Negative (NEGATIVE) 03/24/21 11:07 Urine RBC 3-5 /HPF (0-3) A 03/24/21 11:07 Urine WBC 0-2 /HPF (0-5) 03/24/21 11:07 Ur Squamous Epith Cells Numerous /HPF (NEGATIVE) 03/24/21 11:07 Urine Bacteria Negative /HPF (NEGATIVE) 03/24/21 11:07 Ur Culture Indicated? No/not indicated 03/24/21 11:07 SARS-CoV-2 (PCR) Positive (NEGATIVE) A 03/24/21 10:23 Influenza Type A (PCR) Negative (NEGATIVE) 03/24/21 10:23 Influenza Type B (PCR) Negative (NEGATIVE) 03/24/21 10:23 RSV (PCR) Negative (NEGATIVE) 03/24/21 10:23 S. pyogenes (TEM-PCR) Not detected (NOT DETECT) 03/24/21 10:37 Plan (1) Pneumonia due to COVID-19 virus: Status: Acute Plan: SUPPLEMENTAL OXYGEN, IV ANTIBIOTICS, TPN, IV STEROIDS, NEB TX, IMMUNE SUPPLEMENTS (2) Sepsis: Status: Acute Qualifiers: Sepsis acute organ dysfunction status: unspecified Sepsis type: sepsis due to unspecified organism Qualified Code(s): A41.9 - Sepsis, unspecified organism Plan: WAS ADMITTED FOR TREATMENT OF PNEUMONIA DUE TO COVID-16, SEPSIS, HYPOXIA, AND AMS. SHE HAS A PMH OF DEMENTIA, COPD, DM II, ANEMIA, CHF, CVA, GERD, HTN, DYSLIPIDEMIA, SCHIZOPHRENIA, CHOLECYSTECTOMY, AND HYSTERECTOMY. TODAY, SHE IS ALERT, LYING IN BED ON MORNING ROUNDS. SHE IS CURRENTLY UTILIZING OXYGEN VIA NASAL CANNULA AT 4 LPM. OXYGEN SATURATIONS HAVE BEEN IN THE 90s THIS MORNING AND THROUGHOUT THE NIGHT. ON EXAMINATION, HEART IS REGULAR IN RATE AND RHYTHM. BILATERAL LUNGS NOTED WITH SCATTERED RHONCHI THROUGHOUT. ABDOMEN IS ROUND, SOFT, AND NON-TENDER WITH NORMAL BOWEL SOUNDS NOTED IN ALL QUADRANTS. HER VITALS THIS MORNING ARE: 97.9-50-18-95%-175/73. LABS WERE OBTAINED. ABNORMAL LAB VALUES INCLUDE THE FOLLOWING: CHLORIDE 110, BUN 34, GLUCOSE 177, CRP 50.30, BNP 229, ALBUMIN 2.2. LABS ARE OTHERWISE UNREMARKABLE. BLOOD CULTURES ARE PENDING. A CHEST XRAY WAS OBTAINED AND REVEALED: Diffuse interstitial infiltrates right greater than left, unchanged. Right basilar subsegmental atelectasis. SHE IS CURRENTLY RECEIVING NORMAL SALINE, TPN, REMDESIVIR 100MG IV DAILY, ZOSYN 3.375G IV TID, SOLU-MEDROL 40MG IV Q8H, DUONEBS Q4H PRN, BROVANA BID, PULMICORT NEBS BID, IVERMECTIN, ZOFRAN 4MG IV Q6H PRN, OTBS ACHS, HUMULIN R SLIDING SCALE, AND HER HOME MEDICATIONS WERE RESUMED. WE WILL CONTINUE WITH CURRENT PLAN OF CARE TODAY. OTHERWISE, WE PLAN TO FOLLOW UP WITH AM LABS AND CONTINUE TO MONITOR. TIME SPENT ON CLINICAL ASSESSMENT, REVIEWING LABS AND IMAGING, DECISION MAKING, AND DOCUMENTATION WAS GREATER THAN 45 MINUTES. (3) Hypotension: Status: Acute Qualifiers: Hypotension type: unspecified hypotension type Qualified Code(s): I95.9 - Hypotension, unspecified (4) AMS (altered mental status): Status: Acute Qualifiers: Altered mental status type: transient alteration of awareness Qualified Code(s): R40.4 - Transient alteration of awareness (5) Dementia: Status: Chronic Qualifiers: Dementia behavioral disturbance: without behavioral disturbance Dementia type: unspecified type Qualified Code(s): F03.90 - Unspecified dementia without behavioral disturbance (6) COPD (chronic obstructive pulmonary disease): Status: Chronic Qualifiers: COPD type: unspecified COPD Qualified Code(s): J44.9 - Chronic obstructive pulmonary disease, unspecified (7) Diabetes mellitus: Status: Chronic Qualifiers: Diabetes mellitus complication status: without complication Diabetes mellitus care home insulin use: without care home use Diabetes mellitus type: type 2 Qualified Code(s): E11.9 - Type 2 diabetes mellitus without complications Plan: Regular insulin sliding scale. (8) GERD (gastroesophageal reflux disease): Status: Chronic Qualifiers: Esophagitis presence: esophagitis presence not specified Qualified Code(s): K21.9 - Gastro-esophageal reflux disease without esophagitis
[2021-03-31] MEDS ORDERED: K-DUR TAB 20 MEQ PO PRN (11:42)
[2021-03-31] MEDS: NovoLIN R (or HumuLIN R) SUBCUT PRN ×3 (13:54→20:51)
[2021-03-31] MEDS: TYLENOL 325 MG TAB PO PRN (16:05)
[2021-03-31] MEDS: SNACK - Diabetic Appropriate PO SCH (20:04)
[2021-03-31] MEDS: ARICEPT TAB 10 MG PO SCH (20:04)
[2021-03-31] MEDS: PEPCID TAB 40 MG PO SCH (20:06)
[2021-03-31] MEDS: ZOCOR TAB 20 MG PO SCH (20:07)
[2021-04-01] MEDS: SOLU-Medrol 40 MG VIAL IVP SCH ×3 (05:01→21:03)
[2021-04-01] MEDS: D5W IV SCH ×3 (05:01→21:03)
[2021-04-01] MEDS: ZOSYN IV SCH ×3 (05:01→21:03)
[2021-04-01 05:11] LABS: BLOOD UREA NITROGEN 28 mg/dL (7-18); CALCIUM 8.8 mg/dL (8.5-10.1); CARBON DIOXIDE 31.2 mmol/L (21-32); CHLORIDE 108 mmol/L (98-107); COR NA(FOR HYPERGLY) 146 mmol/L (136-145); CREATININE 0.62 mg/dL (0.55-1.02); SODIUM 145 mmol/L (136-145); eGFR NON BLACK RACES > 60 (>60)
[2021-04-01 05:15] LABS: BASOPHILS % (AUTO) 0.1 % (0.2-1.0); HEMATOCRIT 40.8 % (36.0-47.0); HEMOGLOBIN 13.8 g/dL (12.0-16.0); LYMPHOCYTES # (AUTO) 1.4 X10^3/uL (1.3-2.9); LYMPHOCYTES % (AUTO) 24.7 % (21.0-51.0); MEAN CORPUSCULAR HEMOGLOBIN 31.5 pg (27.0-34.0); MEAN CORPUSCULAR HGB CONC 33.8 g/dL (33.0-35.0); MEAN PLATELET VOLUME 8.7 fL (7.4-11.0); MONOCYTES # (AUTO) 0.3 x10^3/uL (0.3-0.8); MONOCYTES % (AUTO) 5.3 % (0.0-13.0); NEUTROPHILS # (AUTO) 4.1 x10^3/uL (2.2-4.8); NEUTROPHILS % (AUTO) 69.9 % (42.0-75.0); RED BLOOD COUNT 4.38 X10^6/uL (3.5-5.4); WHITE BLOOD COUNT 5.8 X10^3/uL (3.6-10.0)
[2021-04-01] MEDS: GLUCOTROL PO SCH (06:33)
[2021-04-01] MEDS: BROVANA IN SCH ×2 (08:41→21:36)
[2021-04-01] MEDS: PULMICORT NEB TX 0.5 MG NEB SCH ×2 (08:41→21:36)
[2021-04-01] MEDS ORDERED: LEXAPRO ONE (09:12)
[2021-04-01] MEDS: COZAAR PO SCH (09:54)
[2021-04-01] MEDS: ARTIFICIAL TEARS DROPS OP SCH ×2 (09:54→21:01)
[2021-04-01] MEDS: DEPAKOTE D.R. TAB PO SCH (09:54)
[2021-04-01] MEDS: LEXAPRO PO SCH (09:55)
[2021-04-01] MEDS: IVERMECTIN PO SCH (09:55)
[2021-04-01] MEDS: HEMOCYTE-PLUS PO SCH (09:55)
[2021-04-01] MEDS: TAB-A-VITE PO SCH (09:56)
[2021-04-01] MEDS: NAMENDA TAB 10 MG PO SCH ×2 (09:56→21:02)
[2021-04-01] MEDS: LOVENOX INJ 30 MG SYR SC SCH ×2 (09:56→21:01)
[2021-04-01] MEDS: VIBRAMYCIN PO SCH ×2 (09:57→21:02)
[2021-04-01] MEDS: VITAMIN C PO SCH ×4 (09:57→21:03)
[2021-04-01] MEDS: NEURONTIN CAP 400 MG PO SCH ×2 (09:57→21:02)
[2021-04-01] MEDS: NovoLIN R (or HumuLIN R) SUBCUT PRN ×2 (12:00→17:40)
--- NOTE | 2021-04-01 12:31 | PCM.PROG ---
Progress Note Progress Note for Day of Date of Exam: 04/01/21 Subjective Subjective: PT IS A 76 YEAR OLD FEMALE ADMITTED FOR TREATMENT OF PNEUMONIA DUE TO COVID-16, SEPSIS, HYPOXIA, AND AMS. SHE HAS A PMH OF DEMENTIA, COPD, DM II, ANEMIA, CHF, CVA, GERD, HTN, DYSLIPIDEMIA, SCHIZOPHRENIA, CHOLECYSTECTOMY, AND HYSTERECTOMY. THIS MORNING SHE REPORTS SOME IMPROVEMENT. NO ACUTE EVENTS OVERNIGHT. SHE IS CURRENTLY UTILIZING OXYGEN VIA NASAL CANNULA AT 4 LPM. OXYGEN SATURATIONS HAVE BEEN IN THE 90s THIS MORNING AND THROUGHOUT THE NIGHT. LABS/IMAGING: WBC 5.8, HGB 13.8, PLT 199, NA 145, K 3.9, CREATININE 0.62, GLUCOSE 156, BLOOD CULTURES ARE PENDING. A CHEST XRAY WAS OBTAINED AND REVEALED: Improved aeration of the lungs associated with resolving alveolar opacities associated with pneumonia. SHE IS CURRENTLY RECEIVING NORMAL SALINE, TPN, REMDESIVIR 100MG IV DAILY, ZOSYN 3.375G IV TID, SOLU-MEDROL 40MG IV Q8H, DUONEBS Q4H PRN, BROVANA BID, PULMICORT NEBS BID, IVERMECTIN, ZOFRAN 4MG IV Q6H PRN, OTBS ACHS, HUMULIN R SLIDING SCALE, AND HER HOME MEDICATIONS WERE RESUMED. WILL CONTINUE WITH CURRENT PLAN OF CARE TODAY. CONTINUE TO MONITOR AND FOLLOW UP WITH AM LABS/CXR. TIME SPENT ON CLINICAL ASSESSMENT, REVIEWING LABS AND IMAGING, DECISION MAKING, AND DOCUMENTATION WAS GREATER THAN 45 MINUTES. Past Medical Family Social History Past Med/Fam/Surg Hx: No changes since H&P Allergies: Allergies niacin Allergy (Mild, Verified 06/26/20 17:13) azithromycin Allergy (Verified 11/13/17 23:23) ciprofloxacin Allergy (Verified 11/13/17 23:23) codeine Allergy (Verified 11/13/17 23:23) Corticosteroids (Glucocorticoids) Allergy (Verified 11/13/17 23:23) levofloxacin Allergy (Verified 11/13/17 23:23) morphine Allergy (Verified 11/13/17 23:23) promethazine Allergy (Verified 11/13/17 23:23) topiramate Allergy (Verified 11/13/17 23:23) Review of Systems ROS: No change since H&P Vital Signs and I&O's Vital Signs: Temperature 98.0 F Pulse Rate [Apical] 59 Pulse Rate 43 Respiratory Rate 15 Blood Pressure [Right Arm] 145/63 Blood Pressure 147/68 O2 Sat by Pulse Oximetry 95 Intake and Output: Intake & Output 03/29/21 03/30/21 03/31/21 04/01/21 23:59 23:59 23:59 23:59 Intake Total 2680 / 2680 2266 / 2266 2096 / 2096 515 / 515 Output Total 1600 / 1600 2725 / 2725 3350 / 3350 650 / 650 Balance 3419 / 1080 -459 / -459 -1254 / -1254 -135 / -135 Physical Exam Oriented: Not Oriented Eyes: Normal Ear: Normal Nose: Normal Respiratory: Generalized, Diminished and Rhonchi Cardiovascular: Normal Auscultation: Bowel Sounds: Normal Tenderness: Normal Skin: Normal Musculoskeletal: Instability Psychiatric: Other Mood Description: Calm Affect: Quiet Speech Pattern: Inappropriate and Delayed Laboratory and Diagnostics Result Diagrams: 04/01/21 04:21 04/01/21 04:21 Labs: 03/24/21 10:37 Blood Blood Culture - Final 03/24/21 10:37 Blood Blood Culture - Final 03/27/21 05:10 Blood Blood Culture - Preliminary 03/27/21 05:05 Blood Blood Culture - Preliminary Laboratory WBC 5.8 X10^3/uL (3.6-10.0) 04/01/21 04:21 RBC 4.38 X10^6/uL (3.5-5.4) 04/01/21 04:21 Hgb 13.8 g/dL (12.0-16.0) 04/01/21 04:21 Hct 40.8 % (36.0-47.0) 04/01/21 04:21 MCV 93.0 fL (80.0-100.0) 04/01/21 04:21 MCH 31.5 pg (27.0-34.0) 04/01/21 04:21 MCHC 33.8 g/dL (33.0-35.0) 04/01/21 04:21 RDW 13.0 % (11.6-16.5) 04/01/21 04:21 Plt Count 199 X10^3/uL (150.0-450.0) 04/01/21 04:21 Plt Count Comment Decreased (ADEQUATE) A 03/28/21 05:41 MPV 8.7 fL (7.4-11.0) 04/01/21 04:21 Neut % (Auto) 69.9 % (42.0-75.0) 04/01/21 04:21 Lymph % (Auto) 24.7 % (21.0-51.0) 04/01/21 04:21 [place] % (Auto) 5.3 % (0.0-13.0) 04/01/21 04:21 Eos % (Auto) 0.0 % (0.9-2.9) L 04/01/21 04:21 Baso % (Auto) 0.1 % (0.2-1.0) L 04/01/21 04:21 Neut # (Auto) 4.1 x10^3/uL (2.2-4.8) 04/01/21 04:21 Lymph # (Auto) 1.4 X10^3/uL (1.3-2.9) 04/01/21 04:21 [place] # (Auto) 0.3 x10^3/uL (0.3-0.8) 04/01/21 04:21 Eos # (Auto) 0.0 x10^3/uL (0.0-0.2) 04/01/21 04:21 Baso # (Auto) 0.0 X10^3/uL (0.0-0.1) 04/01/21 04:21 Absolute Nucleated RBC 0.1 /100WBC 04/01/21 04:21 Total Counted 50 03/28/21 05:41 Neutrophils % (Manual) 54 % (39-76) 03/28/21 05:41 Band Neutrophils % 2 % (0-10) 03/28/21 05:41 Lymphocytes % (Manual) 40 % (13-43) 03/28/21 05:41 Monocytes % (Manual) 4 % (4-9) 03/28/21 05:41 Plt Morphology Comment Normal (NORMAL) 03/28/21 05:41 RBC Morphology Normal (NORMAL) 03/28/21 05:41 D-Dimer 0.51 ug/ml (0.0-0.57) 03/24/21 10:37 Sample Site Rrad 03/30/21 04:59 ABG pH 7.340 (7.35-7.45) L 03/30/21 04:59 ABG pCO2 46.0 mmHg (35.0-45.0) H 03/30/21 04:59 ABG pO2 140.0 mmHg (80.0-100.0) H 03/30/21 04:59 ABG HCO3 24.8 mmol/L (22-26) 03/30/21 04:59 ABG O2 Saturation 99.0 % (90-100) 03/30/21 04:59 ABG Base Excess -1.3 mmol/L (-2.0-2.0) 03/30/21 04:59 Richard Test Pos 03/30/21 04:59 A-a Gradient 2.0 mmHg 03/30/21 04:59 FiO2 28.0 03/30/21 04:59 Blood Gas Comments [facility] well /ms 03/30/21 04:59 Sodium 145 mmol/L (136-145) 04/01/21 04:21 Corrected Sodium 146 mmol/L (136-145) H 04/01/21 04:21 Potassium 3.9 mmol/L (3.5-5.1) 04/01/21 04:21 Chloride 108 mmol/L (98-107) H 04/01/21 04:21 Carbon Dioxide 31.2 mmol/L (21-32) 04/01/21 04:21 BUN 28 mg/dL (7-18) H 04/01/21 04:21 Creatinine 0.62 mg/dL (0.55-1.02) 04/01/21 04:21 Est GFR (MDRD) Af Amer > 60 (>60) 04/01/21 04:21 Est GFR (MDRD) Non-Af > 60 (>60) 04/01/21 04:21 Glucose 156 mg/dL (65-99) H 04/01/21 04:21 POC Glucose (mg/dL) 176 mg/dL (65-99) H 04/01/21 12:23 Lactic Acid 1.5 mmol/L (0.4-2.0) 03/24/21 10:37 Calcium 8.8 mg/dL (8.5-10.1) 04/01/21 04:21 Corrected Calcium 10.0 mg/dL (8.5-10.1) 03/31/21 04:24 Magnesium 1.9 mg/dL (1.7-2.9) 03/31/21 04:24 Total Bilirubin 0.30 mg/dL (0.2-1.0) 03/31/21 04:24 AST 23 Units/L (15-37) 03/31/21 04:24 ALT 26 Units/L (12-78) 03/31/21 04:24 Alkaline Phosphatase 90 Units/L (46-116) 03/31/21 04:24 C-Reactive Protein 11.80 mg/L (0-3.0) H 03/31/21 04:24 B-Natriuretic Peptide 476 pg/mL (0-79) H 03/31/21 04:24 Total Protein 6.2 g/dL (6.4-8.2) L 03/31/21 04:24 Albumin 2.3 g/dL (3.4-5.0) L 03/31/21 04:24 Globulin 3.9 g/dL (2.5-4.5) 03/31/21 04:24 Albumin/Globulin Ratio 0.6 Ratio (1.1-2.1) L 03/31/21 04:24 Prealbumin 13.7 mg/dL (18-35.7) L 03/29/21 04:50 Specimen Type Catherized urine 03/24/21 11:07 Urine Color Yellow (YELLOW) 03/24/21 11:07 Urine Appearance Clear (CLEAR) 03/24/21 11:07 Urine pH 5.0 (5.0 - 8.0) 03/24/21 11:07 Ur Specific [place] 1.015 (1.000-1.030) 03/24/21 11:07 Urine Protein Negative (NEGATIVE) 03/24/21 11:07 Urine Glucose (UA) 4+ (NEGATIVE) 03/24/21 11:07 Urine Ketones 1+ (NEGATIVE) 03/24/21 11:07 Urine Occult Blood 1+ (NEGATIVE) 03/24/21 11:07 Urine Nitrite Negative (NEGATIVE) 03/24/21 11:07 Urine Bilirubin Negative (NEGATIVE) 03/24/21 11:07 Urine Urobilinogen Normal (NORMAL) 03/24/21 11:07 Ur Leukocyte Esterase Negative (NEGATIVE) 03/24/21 11:07 Urine RBC 3-5 /HPF (0-3) A 03/24/21 11:07 Urine WBC 0-2 /HPF (0-5) 03/24/21 11:07 Ur Squamous Epith Cells Numerous /HPF (NEGATIVE) 03/24/21 11:07 Urine Bacteria Negative /HPF (NEGATIVE) 03/24/21 11:07 Ur Culture Indicated? No/not indicated 03/24/21 11:07 SARS-CoV-2 (PCR) Positive (NEGATIVE) A 03/24/21 10:23 Influenza Type A (PCR) Negative (NEGATIVE) 03/24/21 10:23 Influenza Type B (PCR) Negative (NEGATIVE) 03/24/21 10:23 RSV (PCR) Negative (NEGATIVE) 03/24/21 10:23 S. pyogenes (TEM-PCR) Not detected (NOT DETECT) 03/24/21 10:37 Plan (1) Pneumonia due to COVID-19 virus: Status: Acute Plan: SUPPLEMENTAL OXYGEN, IV ANTIBIOTICS, TPN, IV STEROIDS, NEB TX, IMMUNE SUPPLEMENTS (2) Sepsis: Status: Acute Qualifiers: Sepsis acute organ dysfunction status: unspecified Sepsis type: sepsis due to unspecified organism Qualified Code(s): A41.9 - Sepsis, unspecified organism Plan: WAS ADMITTED FOR TREATMENT OF PNEUMONIA DUE TO COVID-16, SEPSIS, HYPOXIA, AND AMS. SHE HAS A PMH OF DEMENTIA, COPD, DM II, ANEMIA, CHF, CVA, GERD, HTN, DYSLIPIDEMIA, SCHIZOPHRENIA, CHOLECYSTECTOMY, AND HYSTERECTOMY. TODAY, SHE IS ALERT, LYING IN BED ON MORNING ROUNDS. SHE IS CURRENTLY UTILIZING OXYGEN VIA NASAL CANNULA AT 4 LPM. OXYGEN SATURATIONS HAVE BEEN IN THE 90s THIS MORNING AND THROUGHOUT THE NIGHT. ON EXAMINATION, HEART IS REGULAR IN RATE AND RHYTHM. BILATERAL LUNGS NOTED WITH SCATTERED RHONCHI THROUGHOUT. ABDOMEN IS ROUND, SOFT, AND NON-TENDER WITH NORMAL BOWEL SOUNDS NOTED IN ALL QUADRANTS. HER VITALS THIS MORNING ARE: 97.9-50-18-95%-175/73. LABS WERE OBTAINED. ABNORMAL LAB VALUES INCLUDE THE FOLLOWING: CHLORIDE 110, BUN 34, GLUCOSE 177, CRP 50.30, BNP 229, ALBUMIN 2.2. LABS ARE OTHERWISE UNREMARKABLE. BLOOD CULTURES ARE PENDING. A CHEST XRAY WAS OBTAINED AND REVEALED: Diffuse interstitial infiltrates right greater than left, unchanged. Right basilar subsegmental atelectasis. SHE IS CURRENTLY RECEIVING NORMAL SALINE, TPN, REMDESIVIR 100MG IV DAILY, ZOSYN 3.375G IV TID, SOLU-MEDROL 40MG IV Q8H, DUONEBS Q4H PRN, BROVANA BID, PULMICORT NEBS BID, IVERMECTIN, ZOFRAN 4MG IV Q6H PRN, OTBS ACHS, HUMULIN R SLIDING SCALE, AND HER HOME MEDICATIONS WERE RESUMED. WE WILL CONTINUE WITH CURRENT PLAN OF CARE TODAY. OTHERWISE, WE PLAN TO FOLLOW UP WITH AM LABS AND CONTINUE TO MONITOR. TIME SPENT ON CLINICAL ASSESSMENT, REVIEWING LABS AND IMAGING, DECISION MAKING, AND DOCUMENTATION WAS GREATER THAN 45 MINUTES. (3) Hypotension: Status: Acute Qualifiers: Hypotension type: unspecified hypotension type Qualified Code(s): I95.9 - Hypotension, unspecified (4) AMS (altered mental status): Status: Acute Qualifiers: Altered mental status type: transient alteration of awareness Qualified Code(s): R40.4 - Transient alteration of awareness (5) Dementia: Status: Chronic Qualifiers: Dementia behavioral disturbance: without behavioral disturbance Dementia type: unspecified type Qualified Code(s): F03.90 - Unspecified dementia without behavioral disturbance (6) COPD (chronic obstructive pulmonary disease): Status: Chronic Qualifiers: COPD type: unspecified COPD Qualified Code(s): J44.9 - Chronic obstructive pulmonary disease, unspecified (7) Diabetes mellitus: Status: Chronic Qualifiers: Diabetes mellitus complication status: without complication Diabetes mellitus group home insulin use: without group home use Diabetes mellitus type: type 2 Qualified Code(s): E11.9 - Type 2 diabetes mellitus without complications Plan: Regular insulin sliding scale. (8) GERD (gastroesophageal reflux disease): Status: Chronic Qualifiers: Esophagitis presence: esophagitis presence not specified Qualified Code(s): K21.9 - Gastro-esophageal reflux disease without esophagitis
[2021-04-01] MEDS: [UNRECOGNIZED DRUG - REMARK] IV SCH ×3 (14:05)
[2021-04-01] MEDS: SNACK - Diabetic Appropriate PO SCH (20:41)
[2021-04-01] MEDS: ARICEPT TAB 10 MG PO SCH (21:00)
[2021-04-01] MEDS: PEPCID TAB 40 MG PO SCH (21:02)
[2021-04-01] MEDS: ZOCOR TAB 20 MG PO SCH (21:03)
[2021-04-02] MEDS: D5W IV SCH (05:09)
[2021-04-02] MEDS: ZOSYN IV SCH (05:09)
[2021-04-02] MEDS: SOLU-Medrol 40 MG VIAL IVP SCH (05:09)
[2021-04-02] MEDS: GLUCOTROL PO SCH (06:15)
--- NOTE | 2021-04-02 06:21 | RAD ---
HISTORYCOVID+STUDYCHEST, 1 [id number]/29/2022.TECHNIQUEAP view of the chest 2 images.FINDINGSThe cardiac and mediastinal contours appear stable. There are mild residual hazy and interstitial opacities in the left mid to lower lung which appear similar to prior. No definite pleural effusion or pneumothorax. Soft tissue attenuation limits evaluation.IMPRESSIONNo significant change.Electronically signed by: Reymundo Mims (Apr 02, 2021 06:20:52)
[2021-04-02 06:40] LABS: BASOPHILS % (AUTO) 0.1 % (0.2-1.0); HEMATOCRIT 40.6 % (36.0-47.0); HEMOGLOBIN 13.6 g/dL (12.0-16.0); LYMPHOCYTES # (AUTO) 1.3 X10^3/uL (1.3-2.9); LYMPHOCYTES % (AUTO) 22.5 % (21.0-51.0); MEAN CORPUSCULAR HEMOGLOBIN 31.3 pg (27.0-34.0); MEAN CORPUSCULAR HGB CONC 33.6 g/dL (33.0-35.0); MEAN CORPUSCULAR VOLUME 93.4 fL (80.0-100.0); MEAN PLATELET VOLUME 8.7 fL (7.4-11.0); MONOCYTES # (AUTO) 0.3 x10^3/uL (0.3-0.8); MONOCYTES % (AUTO) 4.9 % (0.0-13.0); NEUTROPHILS # (AUTO) 4.3 x10^3/uL (2.2-4.8); NEUTROPHILS % (AUTO) 72.5 % (42.0-75.0); RED BLOOD COUNT 4.35 X10^6/uL (3.5-5.4); WHITE BLOOD COUNT 5.9 X10^3/uL (3.6-10.0)
[2021-04-02 06:43] LABS: BLOOD UREA NITROGEN 27 mg/dL (7-18); CALCIUM 8.7 mg/dL (8.5-10.1); CARBON DIOXIDE 30.2 mmol/L (21-32); CHLORIDE 107 mmol/L (98-107); COR NA(FOR HYPERGLY) 145 mmol/L (136-145); CREATININE 0.69 mg/dL (0.55-1.02); SODIUM 143 mmol/L (136-145); eGFR NON BLACK RACES > 60 (>60)
[2021-04-02] MEDS: NovoLIN R (or HumuLIN R) SUBCUT PRN (06:51)
[2021-04-02 07:26] LABS: METAMYELOCYTES % 1; PLATELET MORPHOLOGY COMMENT NORMAL (NORMAL)
[2021-04-02] MEDS ORDERED: LEXAPRO ONE (07:49)
--- NOTE | 2021-04-02 08:17 | PCM.PROG ---
Progress Note - Progress Note for Day of Date of Exam: 03/30/21 - Subjective Subjective: WAS ADMITTED FOR TREATMENT OF PNEUMONIA DUE TO COVID-16, SEPSIS, HYPOXIA, AND AMS. SHE HAS A PMH OF DEMENTIA, COPD, DM II, ANEMIA, CHF, CVA, GERD, HTN, DYSLIPIDEMIA, SCHIZOPHRENIA, CHOLECYSTECTOMY, AND HYSTERECTOMY. TODAY, SHE IS ALERT, LYING IN BED ON MORNING ROUNDS. SHE IS CURRENTLY UTILIZING OXYGEN VIA NASAL CANNULA AT 4 LPM. OXYGEN SATURATIONS HAVE BEEN IN THE 90s THIS MORNING AND THROUGHOUT THE NIGHT. ON EXAMINATION, SHE IS BRADYCARDIC WITH HR IN THE 40s. BILATERAL LUNGS NOTED WITH SCATTERED RHONCHI THROUGHOUT. BREATHING DOES APPEAR TO BE SLIGHTLY LABORED. ABDOMEN IS ROUND, SOFT, AND NON-TENDER WITH NORMAL BOWEL SOUNDS NOTED IN ALL QUADRANTS. HER VITALS THIS MORNING ARE: 97.2-43-14-95%-132/58. LABS WERE OBTAINED. ABNORMAL LAB VALUES INCLUDE THE FOLLOWING: CHLORIDE 110, BUN 34, GLUCOSE 177, CRP 50.30, BNP 229, ALBUMIN 2.2. LABS ARE OTHERWISE UNREMARKABLE. BLOOD CULTURES ARE PENDING. A CHEST XRAY WAS OBTAINED AND REVEALED: Diffuse interstitial infiltrates right greater than left, unchanged. Right basilar subsegmental atelectasis. SHE IS CURRENTLY RECEIVING NORMAL SALINE, TPN, REMDESIVIR 100MG IV DAILY, ZOSYN 3.375G IV TID, SOLU-MEDROL 40MG IV Q8H, DUONEBS Q4H PRN, BROVANA BID, PULMICORT NEBS BID, IVERMECTIN, ZOFRAN 4MG IV Q6H PRN, OTBS ACHS, HUMULIN R SLIDING SCALE, AND HER HOME MEDICATIONS WERE RESUMED. WE WILL HEPLOCK HER IV FLUIDS TODAY AND ADMINISTER L ASIX 20MG IV BID X 2 DOSES. WE WILL DISCONTINUE THE REMDESIVIR, THIS COULD BE CAUSING THE DECREASED HEARTRATE. OTHERWISE, WE PLAN TO FOLLOW UP WITH AM LABS AND CONTINUE TO MONITOR. TIME SPENT ON CLINICAL ASSESSMENT, REVIEWING LABS AND IMAGING, DECISION MAKING, AND DOCUMENTATION WAS GREATER THAN 45 MINUTES. - Past Medical Family Social History Past Med/Fam/Surg Hx: No changes since H&P Allergies: Allergies niacin Allergy (Mild, Verified 06/26/20 17:13) azithromycin Allergy (Verified 11/13/17 23:23) ciprofloxacin Allergy (Verified 11/13/17 23:23) codeine Allergy (Verified 11/13/17 23:23) Corticosteroids (Glucocorticoids) Allergy (Verified 11/13/17 23:23) levofloxacin Allergy (Verified 11/13/17 23:23) morphine Allergy (Verified 11/13/17 23:23) promethazine Allergy (Verified 11/13/17 23:23) topiramate Allergy (Verified 11/13/17 23:23) - Review of Systems ROS: No change since H&P - Vital Signs and I&O's Vital Signs: Temperature 97.9 F Pulse Rate [Apical] 59 Pulse Rate 40 Respiratory Rate 16 Blood Pressure [Right Arm] 145/63 Blood Pressure 167/72 O2 Sat by Pulse Oximetry 95 Intake and Output: Intake & Output 03/30/21 03/31/21 04/01/21 04/02/21 11:59 11:59 11:59 11:59 Intake Total 2680 / 2680 1996 / 1996 2280 / 2280 2400 / 2400 Output Total 1700 / 1700 3775 / 3775 2350 / 2350 2100 / 2100 Balance 980 / 980 -1778 / -1778 -70 / -70 300 / 300 - Physical Exam Oriented: Not Oriented Eyes: Normal Ear: Normal Nose: Normal Respiratory: Generalized, Diminished, Rhonchi Cardiovascular: Normal Auscultation: Bowel Sounds: Normal Palpation: Normal Tenderness: Normal Skin: Normal Musculoskeletal: Instability Psychiatric: Other Mood Description: Calm Affect: Quiet Speech Pattern: Inappropriate, Delayed - Laboratory and Diagnostics Result Diagrams: 04/02/21 05:28 04/02/21 05:28 Labs: 03/27/21 05:10 Blood Blood Culture - Final 03/27/21 05:05 Blood Blood Culture - Final 03/24/21 10:37 Blood Blood Culture - Final 03/24/21 10:37 Blood Blood Culture - Final Laboratory WBC 5.9 X10^3/uL (3.6-10.0) 04/02/21 05:28 RBC 4.35 X10^6/uL (3.5-5.4) 04/02/21 05:28 Hgb 13.6 g/dL (12.0-16.0) 04/02/21 05:28 Hct 40.6 % (36.0-47.0) 04/02/21 05:28 MCV 93.4 fL (80.0-100.0) 04/02/21 05:28 MCH 31.3 pg (27.0-34.0) 04/02/21 05:28 MCHC 33.6 g/dL (33.0-35.0) 04/02/21 05:28 RDW 13.0 % (11.6-16.5) 04/02/21 05:28 Plt Count 234 X10^3/uL (150.0-450.0) 04/02/21 05:28 Plt Count Comment Adequate (ADEQUATE) 04/02/21 05:28 MPV 8.7 fL (7.4-11.0) 04/02/21 05:28 Neut % (Auto) 72.5 % (42.0-75.0) 04/02/21 05:28 Lymph % (Auto) 22.5 % (21.0-51.0) 04/02/21 05:28 [place] % (Auto) 4.9 % (0.0-13.0) 04/02/21 05:28 Eos % (Auto) 0.0 % (0.9-2.9) L 04/02/21 05:28 Baso % (Auto) 0.1 % (0.2-1.0) L 04/02/21 05:28 Neut # (Auto) 4.3 x10^3/uL (2.2-4.8) 04/02/21 05:28 Lymph # (Auto) 1.3 X10^3/uL (1.3-2.9) 04/02/21 05:28 [place] # (Auto) 0.3 x10^3/uL (0.3-0.8) 04/02/21 05:28 Eos # (Auto) 0.0 x10^3/uL (0.0-0.2) 04/02/21 05:28 Baso # (Auto) 0.0 X10^3/uL (0.0-0.1) 04/02/21 05:28 Absolute Nucleated RBC 0.1 /100WBC 04/02/21 05:28 Total Counted 100 04/02/21 05:28 Neutrophils % (Manual) 70 % (39-76) 04/02/21 05:28 Band Neutrophils % 2 % (0-10) 03/28/21 05:41 Lymphocytes % (Manual) 25 % (13-43) 04/02/21 05:28 Monocytes % (Manual) 4 % (4-9) 04/02/21 05:28 Metamyelocytes % 1 04/02/21 05:28 Plt Morphology Comment Normal (NORMAL) 04/02/21 05:28 RBC Morphology Normal (NORMAL) 04/02/21 05:28 D-Dimer 0.51 ug/ml (0.0-0.57) 03/24/21 10:37 Sample Site Rrad 03/30/21 04:59 ABG pH 7.340 (7.35-7.45) L 03/30/21 04:59 ABG pCO2 46.0 mmHg (35.0-45.0) H 03/30/21 04:59 ABG pO2 140.0 mmHg (80.0-100.0) H 03/30/21 04:59 ABG HCO3 24.8 mmol/L (22-26) 03/30/21 04:59 ABG O2 Saturation 99.0 % (90-100) 03/30/21 04:59 ABG Base Excess -1.3 mmol/L (-2.0-2.0) 03/30/21 04:59 Richard Test Pos 03/30/21 04:59 A-a Gradient 2.0 mmHg 03/30/21 04:59 FiO2 28.0 03/30/21 04:59 Blood Gas Comments Joelle well /ms 03/30/21 04:59 Sodium 143 mmol/L (136-145) 04/02/21 05:28 Corrected Sodium 145 mmol/L (136-145) 04/02/21 05:28 Potassium 4.1 mmol/L (3.5-5.1) 04/02/21 05:28 Chloride 107 mmol/L (98-107) 04/02/21 05:28 Carbon Dioxide 30.2 mmol/L (21-32) 04/02/21 05:28 BUN 27 mg/dL (7-18) H 04/02/21 05:28 Creatinine 0.69 mg/dL (0.55-1.02) 04/02/21 05:28 Est GFR (MDRD) Af Amer > 60 (>60) 04/02/21 05:28 Est GFR (MDRD) Non-Af > 60 (>60) 04/02/21 05:28 Glucose 199 mg/dL (65-99) H 04/02/21 05:28 POC Glucose (mg/dL) 204 mg/dL (65-99) H* 04/01/21 20:36 Lactic Acid 1.5 mmol/L (0.4-2.0) 03/24/21 10:37 Calcium 8.7 mg/dL (8.5-10.1) 04/02/21 05:28 Corrected Calcium 10.0 mg/dL (8.5-10.1) 03/31/21 04:24 Magnesium 1.9 mg/dL (1.7-2.9) 03/31/21 04:24 Total Bilirubin 0.30 mg/dL (0.2-1.0) 03/31/21 04:24 AST 23 Units/L (15-37) 03/31/21 04:24 ALT 26 Units/L (12-78) 03/31/21 04:24 Alkaline Phosphatase 90 Units/L (46-116) 03/31/21 04:24 C-Reactive Protein 2.00 mg/L (0-3.0) 04/02/21 05:28 B-Natriuretic Peptide 243 pg/mL (0-79) H 04/02/21 05:28 Total Protein 6.2 g/dL (6.4-8.2) L 03/31/21 04:24 Albumin 2.3 g/dL (3.4-5.0) L 03/31/21 04:24 Globulin 3.9 g/dL (2.5-4.5) 03/31/21 04:24 Albumin/Globulin Ratio 0.6 Ratio (1.1-2.1) L 03/31/21 04:24 Prealbumin 13.7 mg/dL (18-35.7) L 03/29/21 04:50 Specimen Type Catherized urine 03/24/21 11:07 Urine Color Yellow (YELLOW) 03/24/21 11:07 Urine Appearance Clear (CLEAR) 03/24/21 11:07 Urine pH 5.0 (5.0 - 8.0) 03/24/21 11:07 Ur Specific [place] 1.015 (1.000-1.030) 03/24/21 11:07 Urine Protein Negative (NEGATIVE) 03/24/21 11:07 Urine Glucose (UA) 4+ (NEGATIVE) 03/24/21 11:07 Urine Ketones 1+ (NEGATIVE) 03/24/21 11:07 Urine Occult Blood 1+ (NEGATIVE) 03/24/21 11:07 Urine Nitrite Negative (NEGATIVE) 03/24/21 11:07 Urine Bilirubin Negative (NEGATIVE) 03/24/21 11:07 Urine Urobilinogen Normal (NORMAL) 03/24/21 11:07 Ur Leukocyte Esterase Negative (NEGATIVE) 03/24/21 11:07 Urine RBC 3-5 /HPF (0-3) A 03/24/21 11:07 Urine WBC 0-2 /HPF (0-5) 03/24/21 11:07 Ur Squamous Epith Cells Numerous /HPF (NEGATIVE) 03/24/21 11:07 Urine Bacteria Negative /HPF (NEGATIVE) 03/24/21 11:07 Ur Culture Indicated? No/not indicated 03/24/21 11:07 SARS-CoV-2 (PCR) Positive (NEGATIVE) A 03/24/21 10:23 Influenza Type A (PCR) Negative (NEGATIVE) 03/24/21 10:23 Influenza Type B (PCR) Negative (NEGATIVE) 03/24/21 10:23 RSV (PCR) Negative (NEGATIVE) 03/24/21 10:23 S. pyogenes (TEM-PCR) Not detected (NOT DETECT) 03/24/21 10:37 - Plan (1) Pneumonia due to COVID-19 virus Status: Acute Plan: SUPPLEMENTAL OXYGEN, IV ANTIBIOTICS, TPN, IV STEROIDS, NEB TX, IMMUNE SUPPLEMENTS (2) Sepsis Status: Acute Qualifiers: Sepsis type: sepsis due to unspecified organism Sepsis acute organ dysfunction status: unspecified Qualified Code(s): A41.9 - Sepsis, unspecified organism (3) Hypotension Status: Acute Qualifiers: Hypotension type: unspecified hypotension type Qualified Code(s): I95.9 - Hypotension, unspecified (4) AMS (altered mental status) Status: Acute Qualifiers: Altered mental status type: transient alteration of awareness Qualified Code(s): R40.4 - Transient alteration of awareness (5) Dementia Status: Chronic Qualifiers: Dementia type: unspecified type Dementia behavioral disturbance: without behavioral disturbance Qualified Code(s): F03.90 - Unspecified dementia without behavioral disturbance (6) COPD (chronic obstructive pulmonary disease) Status: Chronic Qualifiers: COPD type: unspecified COPD Qualified Code(s): J44.9 - Chronic obstructive pulmonary disease, unspecified (7) Diabetes mellitus Status: Chronic Qualifiers: Diabetes mellitus type: type 2 Diabetes mellitus skilled nursing insulin use: without keno terminal operator use Diabetes mellitus complication status: without complication Qualified Code(s): E11.9 - Type 2 diabetes mellitus without complications Plan: Regular insulin sliding scale. (8) GERD (gastroesophageal reflux disease) Status: Chronic Qualifiers: Esophagitis presence: esophagitis presence not specified Qualified Code(s): K21.9 - Gastro-esophageal reflux disease without esophagitis
[2021-04-02] MEDS: ARTIFICIAL TEARS DROPS OP SCH (08:22)
[2021-04-02] MEDS: COZAAR PO SCH (08:23)
[2021-04-02] MEDS: DEPAKOTE D.R. TAB PO SCH (08:23)
[2021-04-02] MEDS: IVERMECTIN PO SCH (08:24)
[2021-04-02] MEDS: LEXAPRO PO SCH (08:24)
[2021-04-02] MEDS: TAB-A-VITE PO SCH (08:24)
[2021-04-02] MEDS: VIBRAMYCIN PO SCH (08:25)
[2021-04-02] MEDS: NEURONTIN CAP 400 MG PO SCH (08:25)
[2021-04-02] MEDS: NAMENDA TAB 10 MG PO SCH (08:26)
[2021-04-02] MEDS: HEMOCYTE-PLUS PO SCH (08:26)
[2021-04-02] MEDS: VITAMIN C PO SCH (08:26)
[2021-04-02] MEDS: LOVENOX INJ 30 MG SYR SC SCH (08:27)
[2021-04-02] MEDS: PULMICORT NEB TX 0.5 MG NEB SCH (09:00)
[2021-04-02] MEDS: BROVANA IN SCH (09:00)
[2021-04-02] MEDS: TYLENOL 325 MG TAB PO PRN (09:33)
[2021-04-02] MEDS: [UNRECOGNIZED DRUG - REMARK] IV SCH ×3 (10:01)
[2021-04-02 10:04] VITALS: BP 136/65
[2021-04-02 11:28] LABS: ALANINE AMINOTRANSFERASE 23 Units/L (12-78); ALBUMIN 2.4 g/dL (3.4-5.0); ALKALINE PHOSPHATASE 77 Units/L (46-116); ASPARTATE AMINO TRANSFERASE 18 Units/L (15-37); TOTAL PROTEIN 6.3 g/dL (6.4-8.2)
== END 2021-04-02 11:40 | DRG 871 ==
LOC: ER 10:00 → U 12:15 → ICU 03-26 17:07
PROVIDERS: ADMIT Family Medicine; ATTEND Internal Medicine
DX: R40.4 Transient alteration of awareness; A41.89 Other specified sepsis; I95.89 Other hypotension; R26.2 Difficulty in walking, not elsewhere classified; Z86.73 Personal history of transient ischemic attack (TIA), and cerebral infarction without residual deficits; J12.82 Pneumonia due to coronavirus disease 2019; K21.9 Gastro-esophageal reflux disease without esophagitis; E11.65 Type 2 diabetes mellitus with hyperglycemia; R13.11 Dysphagia, oral phase; U07.1 COVID-19; R79.82 Elevated C-reactive protein (CRP); F03.90 Unspecified dementia, unspecified severity, without behavioral disturbance, psychotic disturbance, mood disturbance, and anxiety; J44.9 Chronic obstructive pulmonary disease, unspecified; F20.9 Schizophrenia, unspecified

== ENCOUNTER 2022-02-14 14:56 | Inpatient (IN) ==
[2022-02-14] MEDS ORDERED: NS 1,000 ML IV 1,000 ML IV ONE (15:05)
--- NOTE | 2022-02-14 15:05 | DR.GENAD ---
HPI Time Seen Time Seen by Provider: 02/14/22 15:04 Complaint/Symptoms Chief Complaint Doctors Comments: 76 y/o female sent over from the [facility] for evaluation. Was seen early this am after pt developed a fever then. Reportedly choked on dinner while eating yesterday. Was diagnosed with a UTI. Sent back to the [facility] with daily IM Rocephin. Pt with altered mental status today at the [facility], not as alert as usual. Pt somnolent, arousable to tactile stimulation, non verbal. Drifts back to sleep quickly. Nurses notes reviewed Nurses Notes Review: Yes Source History Provided: Care Home PMH PMH Past Medical History: Anemia, Angina, CHF, COPD, Diabetes, GERD and Schizophrenia Past Surgical History: No (unknown) Surgical History: Cholecystectomy, Hysterectomy and Ortho Surgery Family History Family Medical History: Diabetes Mellitus, Cancer, [place], Coronary Artery Disease, Heart Failure, Sudden Cardiac and Hypertension Social History Do you use any recreational Drugs:: No ROS Review of Systems Unable to Obtain Due To: Altered mental status PE Vital Signs Vitals: Temperature 99.3 F Pulse Rate 70 Respiratory Rate 17 Blood Pressure [Right Arm] 114/53 Blood Pressure 128/57 O2 Sat by Pulse Oximetry 99 General General Appearance: Other (somnolent, arousable to tactie stimulation) Eyes Eye exam: PERRL ENT ENT Exam: Other (mouth breathing, dry mucous membranes.) Neck Neck Exam: negative Tenderness Respiratory Respiratory Exam: Normal Lung Sounds Bilat; negative Accessory Muscle Use or Respiratory Distress Cardiovascular Cardiovascular Exam: Regular Rate, Normal Rhythm and Normal Heart Sounds Abdominal Exam Abdominal Exam: Normal Bowel Sounds and Soft; negative Tenderness Neurologic Neurological Exam: Other (somnolent) Skin Skin Exam: Warm and Dry COURSE Treatment Treatment: 76 y/o female seen last pm oin the ER, dx'd with UTI. Pt worsening, has decreased mental alertness, decreased BP. W/u initiated. Pt given IV fluids, IV rocephin to start. U/A with TNTC WBCs/RBCs c/w infection. Serum WBC going higher. Lactic acid normal. Blood Cultures from this AM + for initial growth. Discussed with her attending, Dr Meeks. Will admit for IV antibiotic, will use Fortaz. To continue IV fluids, will hold PO meds at present (pt very somnolent). [facility] Labs Reviewed Result Diagrams: 02/14/22 15:05 12/15/22 15:05 Laboratory: WBC 21.8 X10^3/uL (3.6-10.0) H 02/14/22 15:05 RBC 4.82 X10^6/uL (3.5-5.4) 02/14/22 15:05 Hgb 14.9 g/dL (12.0-16.0) 02/14/22 15:05 Hct 44.9 % (36.0-47.0) 02/14/22 15:05 MCV 93.1 fL (80.0-100.0) 02/14/22 15:05 MCH 31.0 pg (27.0-34.0) 02/14/22 15:05 MCHC 33.3 g/dL (33.0-35.0) 02/14/22 15:05 RDW 13.3 % (11.6-16.5) 02/14/22 15:05 Plt Count 202 X10^3/uL (150.0-450.0) 02/14/22 15:05 Plt Count Comment Adequate (ADEQUATE) 02/14/22 15:05 MPV 8.1 fL (7.4-11.0) 02/14/22 15:05 Neut % (Auto) 87.6 % (42.0-75.0) H 02/14/22 15:05 Lymph % (Auto) 6.0 % (21.0-51.0) L 02/14/22 15:05 [place] % (Auto) 6.1 % (0.0-13.0) 02/14/22 15:05 Eos % (Auto) 0.0 % (0.9-2.9) L 02/14/22 15:05 Baso % (Auto) 0.3 % (0.2-1.0) 02/14/22 15:05 Neut # (Auto) 19.1 x10^3/uL (2.2-4.8) H 02/14/22 15:05 Lymph # (Auto) 1.3 X10^3/uL (1.3-2.9) 02/14/22 15:05 [place] # (Auto) 1.3 x10^3/uL (0.3-0.8) H 02/14/22 15:05 Eos # (Auto) 0.0 x10^3/uL (0.0-0.2) 02/14/22 15:05 Baso # (Auto) 0.1 X10^3/uL (0.0-0.1) 02/14/22 15:05 Absolute Nucleated RBC 0.0 /100WBC 02/14/22 15:05 Total Counted 100 02/14/22 15:05 Neutrophils % (Manual) 87 % (39-76) H 02/14/22 15:05 Lymphocytes % (Manual) 10 % (13-43) L 02/14/22 15:05 Monocytes % (Manual) 3 % (4-9) L 02/14/22 15:05 Plt Morphology Comment Normal (NORMAL) 02/14/22 15:05 RBC Morphology Normal (NORMAL) 02/14/22 15:05 Sodium 147 mmol/L (136-145) H 02/14/22 15:05 Corrected Sodium 148 mmol/L (136-145) H 02/14/22 15:05 Potassium 3.5 mmol/L (3.5-5.1) 02/14/22 15:05 Chloride 108 mmol/L (98-107) H 02/14/22 15:05 Carbon Dioxide 33.6 mmol/L (21-32) H 02/14/22 15:05 BUN 22 mg/dL (7-18) H 02/14/22 15:05 Creatinine 1.02 mg/dL (0.55-1.02) 02/14/22 15:05 Est GFR (MDRD) Af Amer > 60 (>60) 02/14/22 15:05 Est GFR (MDRD) Non-Af 56 (>60) L 02/14/22 15:05 Glucose 134 mg/dL (65-99) H 02/14/22 15:05 Lactic Acid 0.9 mmol/L (0.4-2.0) 02/14/22 15:05 Calcium 8.6 mg/dL (8.5-10.1) 02/14/22 15:05 Corrected Calcium 9.5 mg/dL (8.5-10.1) 02/14/22 15:05 Phosphorus 2.2 mg/dL (2.6-4.7) L 02/14/22 15:05 Magnesium 2.2 mg/dL (2.0-2.9) 02/14/22 15:05 Total Bilirubin 3.80 mg/dL (0.2-1.0) H 02/14/22 15:05 AST 199 Units/L (15-37) H 02/14/22 15:05 ALT 261 Units/L (12-78) H 02/14/22 15:05 Alkaline Phosphatase 241 Units/L (46-116) H 02/14/22 15:05 Total Protein 7.0 g/dL (6.4-8.2) 02/14/22 15:05 Albumin 2.9 g/dL (3.4-5.0) L 02/14/22 15:05 Globulin 4.1 g/dL (2.5-4.5) 02/14/22 15:05 Albumin/Globulin Ratio 0.7 Ratio (1.1-2.1) L 02/14/22 15:05 Specimen Type Catherized urine 02/14/22 15: Urine Color Yellow (YELLOW) 02/14/22: Urine Appearance Cloudy (CLEAR) 02/14/22 15: Urine pH 5.0 (5.0 - 8.0) 02/14/22: Ur Specific [place] 1.015 (1.000-1.030) 02/14/22: Urine Protein 2+ (NEGATIVE) 02/14/22: Urine Glucose (UA) 4+ (NEGATIVE) 02/14/22: Urine Ketones 1+ (NEGATIVE) 02/14/22: Urine Blood 4+ (NEGATIVE) 02/14/22: Urine Nitrite Positive (NEGATIVE) 02/14/22: Urine Bilirubin 3+ (NEGATIVE) 02/14/22: Urine Urobilinogen 2+ (NORMAL) 02/14/22: Ur Leukocyte Esterase 3+ (NEGATIVE) 02/14/22: Urine RBC Tntc /HPF (0-3) A 02/14/22 15: Urine WBC Tntc /HPF (0-5) A 02/14/22 15: Ur Squamous Epith Cells Rare /HPF (NEGATIVE) 02/14/22: Urine Bacteria 1+ /HPF (NEGATIVE) 02/14/22: Ur Culture Indicated? Yes/culture set up 02/14/22 15:26 SARS-CoV-2 (PCR) Negative (NEGATIVE) 02/14/22 15:50 Influenza Type A (PCR) Negative (NEGATIVE) 02/14/22 15:50 Influenza Type B (PCR) Negative (NEGATIVE) 02/14/22 15:50 RSV (PCR) Negative (NEGATIVE) 02/14/22 15:50 Opioid Opioid Risk Tool Age (Michael box if 16-45): No History of Preadolescent Sexual Abuse: No Total: 0 Total Score Risk Category: Low Risk Copyright: Jeremy WESTON predicting aberrant behaviors Discharge Plan Diagnosis Discharge Problem: Sepsis due to urinary tract infection Discharge Plan Patient Disposition: 09 ADMITTED INPATIENT Condition: Stable Orders to Discharge Patient Discharge Orders: Transfer (Routine); Ordered 02/14/22 Ordered By: Neri Swanson
[2022-02-14] MEDS ORDERED: NS 1,000 ML IV 1,000 ML ONE (15:18)
[2022-02-14 15:24] LABS: BASOPHILS # (AUTO) 0.1 X10^3/uL (0.0-0.1); BASOPHILS % (AUTO) 0.3 % (0.2-1.0); HEMATOCRIT 44.9 % (36.0-47.0); HEMOGLOBIN 14.9 g/dL (12.0-16.0); LYMPHOCYTES # (AUTO) 1.3 X10^3/uL (1.3-2.9); MEAN CORPUSCULAR HGB CONC 33.3 g/dL (33.0-35.0); MEAN CORPUSCULAR VOLUME 93.1 fL (80.0-100.0); MEAN PLATELET VOLUME 8.1 fL (7.4-11.0); MONOCYTES # (AUTO) 1.3 x10^3/uL (0.3-0.8); MONOCYTES % (AUTO) 6.1 % (0.0-13.0); NEUTROPHILS # (AUTO) 19.1 x10^3/uL (2.2-4.8); NEUTROPHILS % (AUTO) 87.6 % (42.0-75.0); RED BLOOD COUNT 4.82 X10^6/uL (3.5-5.4); RED CELL DISTRIBUTION WIDTH 13.3 % (11.6-16.5); WHITE BLOOD COUNT 21.8 X10^3/uL (3.6-10.0)
[2022-02-14 15:40] LABS: ALANINE AMINOTRANSFERASE 261 Units/L (12-78); ALBUMIN 2.9 g/dL (3.4-5.0); ALKALINE PHOSPHATASE 241 Units/L (46-116); ASPARTATE AMINO TRANSFERASE 199 Units/L (15-37); BLOOD UREA NITROGEN 22 mg/dL (7-18); CALCIUM 8.6 mg/dL (8.5-10.1); CARBON DIOXIDE 33.6 mmol/L (21-32); CHLORIDE 108 mmol/L (98-107); COR CA(FOR HYPOALB) 9.5 mg/dL (8.5-10.1); COR NA(FOR HYPERGLY) 148 mmol/L (136-145); CREATININE 1.02 mg/dL (0.55-1.02); MAGNESIUM 2.2 mg/dL (2.0-2.9); PHOSPHORUS 2.2 mg/dL (2.6-4.7); SODIUM 147 mmol/L (136-145); eGFR NON BLACK RACES 56 (>60)
[2022-02-14 15:46] LABS: BILIRUBIN,URINE 3+ (NEGATIVE); BLOOD/HEMOGLOBIN,URINE 4+ (NEGATIVE); GLUCOSE, URINE 4+ (NEGATIVE); KETONES,URINE 1+ (NEGATIVE); LEUKOCYTE ESTERASE ,URINE 3+ (NEGATIVE); NITRITES,URINE POSITIVE (NEGATIVE); PROTEIN,URINE 2+ (NEGATIVE); UROBILINOGEN,URINE 2+ (NORMAL)
[2022-02-14] MEDS ORDERED: ROCEPHIN VIAL 1 GRAM 1 G in NS 100 ML IV 100 ML IV ONE (15:53)
[2022-02-14] MEDS ORDERED: NS 50 ML IV 50 ML IV ONE (15:54)
[2022-02-14] MEDS ORDERED: ROCEPHIN VIAL 1 GRAM ONE (15:54)
[2022-02-14 15:55] LABS: PLATELET MORPHOLOGY COMMENT NORMAL (NORMAL)
[2022-02-14 15:59] LABS: LACTIC ACID 0.9 mmol/L (0.4-2.0)
[2022-02-14 16:03] LABS: APPEARANCE,URINE CLOUDY (CLEAR); COLOR,URINE YELLOW (YELLOW)
[2022-02-14 16:04] LABS: BACTERIA,URINE 1+ /HPF (NEGATIVE); RBC,URINE TNTC /HPF (0-3); SQUAMOUS EPITHELIAL CELL,UR RARE /HPF (NEGATIVE)
--- NOTE | 2022-02-14 18:25 | RAD ---
CHEST, 1 VIEWHISTORY: sepsis, feverStudy: Single view of the chest.Comparison:02/13/2022Findings:The cardiomediastinal silhouette is normal. Bilateral interstitial prominence. No focal consolidations, pleural effusions or pneumothorax. Osseous structures demonstrate no acute abnormality.IMPRESSION:1. Bilateral interstitial prominence. Findings may represent early atypical infection, including viral etiologies.Electronically signed by: RONAL STONE (Feb 14, 2022 18:23:13)
[2022-02-14] MEDS ORDERED: DUONEB 0.5 MG/3 MG (3 mL) NEB ONE (20:25)
[2022-02-14 20:54] LABS: LACTIC ACID 1.8 mmol/L (0.4-2.0)
[2022-02-14 20:56] LABS: MAGNESIUM 2.2 mg/dL (2.0-2.9); PHOSPHORUS 3.8 mg/dL (2.6-4.7)
[2022-02-14] MEDS: DUONEB 0.5 MG/3 MG (3 mL) NEB SCH (21:00)
[2022-02-14] MEDS: D5 1/2 NS 1,000 ML 1,000 ML IV SCH (21:26)
[2022-02-14] MEDS: FORTAZ or TAZICEF VIAL INJ 2 G in NS 100 ML IV 100 ML IV SCH (21:26)
[2022-02-14] MEDS ORDERED: DUONEB 0.5 MG/3 MG (3 mL) NEB SCH (22:00)
[2022-02-14] MEDS ORDERED: PHARMACY CONSULT LTC MEDICATIONS XX SCH (23:00)
[2022-02-14] MEDS ORDERED: POTASSIUM CHLORIDE LIQ 20 MEQ UDC PO PRN (23:42)
[2022-02-14] MEDS ORDERED: MICRO K EXTEN CAP 10 MEQ PO PRN (23:42)
[2022-02-14] MEDS ORDERED: MAGNESIUM SULFATE 1 GRAM/100 mL PREMIX 1 G/100 ML BAG IV PRN (23:42)
[2022-02-14] MEDS ORDERED: POTASSIUM CHL 40 MEQ/NS 0.45% 500 ML IV PRN (23:42)
[2022-02-14] MEDS ORDERED: POTASSIUM CHL 60 MEQ/NS 0.45% 500 ML IV PRN (23:42)
[2022-02-14] MEDS ORDERED: KLOR-CON PO PRN (23:42)
[2022-02-14] MEDS ORDERED: K-DUR TAB 20 MEQ PO PRN (23:42)
[2022-02-15] MEDS: K-RIDER 10 MEQ/NS 100 ML 10 MEQ/100 ML BAG IV PRN ×2 (00:12→01:16)
[2022-02-15 03:48] LABS: LACTIC ACID 1.2 mmol/L (0.4-2.0)
[2022-02-15] MEDS: D5 1/2 NS 1,000 ML 1,000 ML IV SCH ×4 (04:42→15:38)
[2022-02-15] MEDS: DUONEB 0.5 MG/3 MG (3 mL) NEB SCH ×3 (06:05→21:15)
[2022-02-15 06:51] LABS: BASOPHILS % (AUTO) 0.1 % (0.2-1.0); HEMATOCRIT 41.1 % (36.0-47.0); HEMOGLOBIN 13.6 g/dL (12.0-16.0); LYMPHOCYTES # (AUTO) 1.5 X10^3/uL (1.3-2.9); LYMPHOCYTES % (AUTO) 11.6 % (21.0-51.0); MEAN CORPUSCULAR HGB CONC 33.2 g/dL (33.0-35.0); MEAN CORPUSCULAR VOLUME 93.5 fL (80.0-100.0); MEAN PLATELET VOLUME 8.5 fL (7.4-11.0); MONOCYTES # (AUTO) 0.5 x10^3/uL (0.3-0.8); MONOCYTES % (AUTO) 4.1 % (0.0-13.0); NEUTROPHILS # (AUTO) 11.3 x10^3/uL (2.2-4.8); NEUTROPHILS % (AUTO) 84.2 % (42.0-75.0); RED CELL DISTRIBUTION WIDTH 13.2 % (11.6-16.5); WHITE BLOOD COUNT 13.4 X10^3/uL (3.6-10.0)
[2022-02-15 07:03] LABS: ALANINE AMINOTRANSFERASE 183 Units/L (12-78); ALBUMIN 2.4 g/dL (3.4-5.0); ALKALINE PHOSPHATASE 218 Units/L (46-116); ASPARTATE AMINO TRANSFERASE 103 Units/L (15-37); BLOOD UREA NITROGEN 19 mg/dL (7-18); CALCIUM 8.5 mg/dL (8.5-10.1); CARBON DIOXIDE 28.3 mmol/L (21-32); CHLORIDE 110 mmol/L (98-107); COR CA(FOR HYPOALB) 9.8 mg/dL (8.5-10.1); COR NA(FOR HYPERGLY) 147 mmol/L (136-145); CREATININE 0.81 mg/dL (0.55-1.02); SODIUM 145 mmol/L (136-145); TOTAL PROTEIN 6.3 g/dL (6.4-8.2); eGFR NON BLACK RACES > 60 (>60)
[2022-02-15] MEDS: FORTAZ or TAZICEF VIAL INJ 2 G in NS 100 ML IV 100 ML IV SCH ×2 (08:35→20:50)
--- NOTE | 2022-02-15 08:58 | DR.H&P ---
H&P - History & Physical for Day of: H&P Date: 02/14/22 - Chief Complaint Chief Complaint: FEVER, AMS, WEAKNESS, DECREASED RESPONSIVENESS - History of Present Illness History of Present Illness: IS A 76 YEAR OLD PATIENT OF OURS. SHE IS A RESIDENT OF [facility]. SHE PRESENTED TO THE ER WITH REPORTS OF FEVER, ALTERED MENTAL STATUS, WEAKNESS, AND DECREASED RESPONSIVENESS. SYMPTOMS APPARENTLY STARTED THE NIGHT BEFORE ARRIVAL. STAFF REPORTS THAT HER TEMPERATURE EARLIER IN THE DAY REACHED 103.0. SHE WAS SEEN AT THE ER ON 02/14/22 AND TREATED FOR A URINARY TRACT INFECTION. SHE WAS GIVEN A DOSE OF ROCEPHIN. ON ARRIVAL TO THE ER, PATIENT WAS NOTED TO BE SOMNOLENT, BUT WAS AROUSABLE TO TACTILE STIULATION. SHE WAS NOT FVERBAL AND WAS UNABLE TO FOLLOW COMMANDS. HER PMH INCLUDES ANEMIA, ANXIETY, ARTHRITIS, CHF, COPD, CAD, CVA, DEMENTIA, DEPRESSION, DIABETES II, DYSLIPIDEMIA, GERD, HTN, SCHIZOPHRENIA, CHOLECYSTECTOMY, HYSTERECTOMY. ON ARRIVAL TO THE ER, HER VITALS WERE 99.3-88-23-84%-99/49. LABS WERE OBTAINED. WBC 21.8, RBC 4.82, HGB 14.9, HCT 44.9, PLT COUNT 202, SODIUM 147, POTASSIUM 3.5, CHLORIDE 108, CARBON DIOXIDE 33.6, BUN 22, CREATININE 1.02, GLUCOSE 134, LACTIC ACID 0.9, CALCIUM 8.6, PHOSPHORUS 2.2, MAGNESIUM 2.2, TOTAL BILI 3.80, AST 199, ALT 261, ALK PHOS 241, TOTAL PROTEIN 7.0, ALBUMIN 2.9, LIPASE 19, TROPONIN 48.1. URINALYSIS WAS OBTAINED. WBC TNTC, RBC TNTC, LEUKOCYTES 3+, BACTERIA 1+, LEUKOCYTES 3+, NITRITES POSITIVE, BLOOD 4+. COVID, INFLUENZA, AND RSV NEGATIVE. A RESPIRATORY VIRAL PANEL WAS ALSO COLLECTED. URINE CULTURE WAS SET UP. CHEST XRAY WAS OBTAINED AND REVEALED: 1. Bilateral interst itial prominence. Findings may represent early atypical infection, including viral etiologies. IN THE ER, SHE WAS GIVEN A NORMAL SALINE BOLUS, ROCEPHIN 1G IV X 1 DOSE. SHE WAS ADMITTED TO THE HOSPITAL FOR FURTHER EVALUATION AND TREATMENT OF SEPSIS DUE TO URINARY TRACT INFECTION. SHE WAS STARTED ON D51/2 NS AT 125 ML/HR, FORTAZ 2G IV Q12H, DUONEBS TID, AND THE POTASSIUM AND MAGNESIUM PROTOCOLS. WE WILL REVIEW HER HOME MEDICATIONS AND RESUME APPOPRIATE. OTHERWISE, WE WILL FOLLOW-UP WITH AM LABS AND CONTINUE TO MONITOR. TIME SPENT ON CLINICAL ASSESSMENT, REVIWING LABS AND IMAGING, DECISION MAKING, AND DOCUMENTATION GREATER THAN 75 MINUTES. - Past Medical History Past Medical History: Angina, Diabetes, Schizophrenia, Anemia, COPD, GERD, CHF - Past Surgical History Surgical History: Cholecystectomy, Hysterectomy, Ortho Surgery - Family History Family Medical History: Diabetes Mellitus, Cancer, [place], Coronary Artery Disease, Heart Failure, Sudden Cardiac , Hypertension - Social History Does patient currently use any type of tobacco product: No Have you used tobacco products in the last 12 months: No Type of Tobacco Use: None Does any household member use tobacco: No Alcohol Use: None Drug Use: None - Medications Home Medications: niacin Allergy (Mild, Verified 06/26/20 17:13) azithromycin Allergy (Verified 11/13/17 23:23) ciprofloxacin Allergy (Verified 11/13/17 23:23) codeine Allergy (Verified 11/13/17 23:23) Corticosteroids (Glucocorticoids) Allergy (Verified 11/13/17 23:23) levofloxacin Allergy (Verified 11/13/17 23:23) morphine Allergy (Verified 11/13/17 23:23) promethazine Allergy (Verified 11/13/17 23:23) topiramate Allergy (Verified 11/13/17 23:23) CONTINUE taking the following medications donepezil 10 mg tablet 10 mg PO QDAY 02/14/22 [History] methenamine hippurate 1 gram tablet 1 g PO BID 02/14/22 [History] - Review of Systems Constitutional: Fever, Weakness Eyes: No Symptoms Reported ENT: No Symptoms Reported Respiratory: No Symptoms Reported Cardiovascular: No Symptoms Reported Gastrointestinal: No Symptoms Reported Genitourinary: No Symptoms Reported Musculoskeletal: No Symptoms Reported Skin: No Symptoms Reported Neurological: See HPI, Weakness, Confusion - Physical Exam Vital Signs: Temperature 98.4 F Pulse Rate [Right Radial] 71 Pulse Rate 63 Respiratory Rate 18 Blood Pressure [Right Arm] 120/78 Blood Pressure 97/46 O2 Sat by Pulse Oximetry 94 Oriented: Unable to test Eyes: Normal Ear: Normal Nose: Normal Throat: Normal Respiratory: Diminished Throughout Cardiovascular: Normal : Normal Auscultation: Bowel Sounds: Normal Palpation: Normal Tenderness: Normal Skin: Normal Musculoskeletal: Normal Psychiatric: Normal Mood Description: Flat Affect: Flat - Assessment/Plan (1) Sepsis due to urinary tract infection Status: Acute Plan: ADMIT, D51/2 NS AT 125 ML/HR, FORTAZ 2G IV Q12H, DUONEBS TID, AND THE POTASSIUM AND MAGNESIUM PROTOCOLS (2) Dementia Qualifiers: Dementia type: unspecified type Qualified Code(s): F03.90 - Unspecified dementia, unspecified severity, without behavioral disturbance, psychotic disturbance, mood disturbance, and anxiety Status: Chronic (3) COPD (chronic obstructive pulmonary disease) Qualifiers: COPD type: unspecified COPD Qualified Code(s): J44.9 - Chronic obstructive pulmonary disease, unspecified Status: Chronic (4) Diabetes mellitus Qualifiers: Diabetes mellitus type: type 2 Diabetes mellitus fci insulin use: without intermodal customer service use Diabetes mellitus complication status: without complication Qualified Code(s): E11.9 - Type 2 diabetes mellitus without complications Status: Chronic (5) Hypertension Qualifiers: Hypertension type: primary hypertension Qualified Code(s): I10 - Essential (primary) hypertension Status: Chronic - Allergies Allergies/Adverse Reactions: Allergies Allergy/AdvReac Type Severity Reaction Status Date / Time niacin Allergy Mild Verified 06/26/20 17:13 azithromycin Allergy Verified 11/13/17 23:23 ciprofloxacin Allergy Verified 11/13/17 23:23 codeine Allergy Verified 11/13/17 23:23 Corticosteroids Allergy Verified 11/13/17 23:23 (Glucocorticoids) levofloxacin Allergy Verified 11/13/17 23:23 morphine Allergy Verified 11/13/17 23:23 promethazine Allergy Verified 11/13/17 23:23 topiramate Allergy Verified 11/13/17 23:23
[2022-02-15 09:16] LABS: LACTIC ACID 1.9 mmol/L (0.4-2.0)
--- NOTE | 2022-02-15 09:17 | RAD ---
HISTORYSOBSTUDYCHEST, 1 [id number]/15/2022FINDINGSThe lungs are clear. No pneumothorax or significant effusion.Heart size is normal. Apparent widened mediastinum is most likely due to the positioning of the patient, who is in an oblique and lordotic position.Bones are unremarkable.EKG leads are noted.IMPRESSION1. No significant abnormalityElectronically signed by: Bob Khoury (Feb 15, 2022 09:15:42)
[2022-02-15 11:13] VITALS: BMI 36.0
[2022-02-15] MEDS: PULMICORT NEB TX 0.5 MG NEB SCH ×2 (13:56→21:15)
[2022-02-16] MEDS: D5 1/2 NS 1,000 ML 1,000 ML IV SCH ×4 (01:44→21:46)
[2022-02-16] MEDS: DUONEB 0.5 MG/3 MG (3 mL) NEB SCH ×3 (05:48→20:28)
[2022-02-16 06:54] LABS: BASOPHILS % (AUTO) 0.3 % (0.2-1.0); EOSINOPHILS % (AUTO) 0.2 % (0.9-2.9); HEMATOCRIT 38.3 % (36.0-47.0); HEMOGLOBIN 12.9 g/dL (12.0-16.0); LYMPHOCYTES # (AUTO) 1.8 X10^3/uL (1.3-2.9); LYMPHOCYTES % (AUTO) 17.7 % (21.0-51.0); MEAN CORPUSCULAR HEMOGLOBIN 31.3 pg (27.0-34.0); MEAN CORPUSCULAR HGB CONC 33.7 g/dL (33.0-35.0); MEAN CORPUSCULAR VOLUME 92.9 fL (80.0-100.0); MEAN PLATELET VOLUME 8.4 fL (7.4-11.0); MONOCYTES # (AUTO) 0.5 x10^3/uL (0.3-0.8); MONOCYTES % (AUTO) 4.7 % (0.0-13.0); NEUTROPHILS # (AUTO) 7.9 x10^3/uL (2.2-4.8); NEUTROPHILS % (AUTO) 77.1 % (42.0-75.0); RED BLOOD COUNT 4.12 X10^6/uL (3.5-5.4); RED CELL DISTRIBUTION WIDTH 13.3 % (11.6-16.5); WHITE BLOOD COUNT 10.2 X10^3/uL (3.6-10.0)
[2022-02-16 07:00] LABS: ALANINE AMINOTRANSFERASE 107 Units/L (12-78); ALBUMIN 2.1 g/dL (3.4-5.0); ALKALINE PHOSPHATASE 233 Units/L (46-116); ASPARTATE AMINO TRANSFERASE 44 Units/L (15-37); BLOOD UREA NITROGEN 10 mg/dL (7-18); CALCIUM 8.1 mg/dL (8.5-10.1); CARBON DIOXIDE 29.1 mmol/L (21-32); CHLORIDE 109 mmol/L (98-107); COR CA(FOR HYPOALB) 9.6 mg/dL (8.5-10.1); COR NA(FOR HYPERGLY) 146 mmol/L (136-145); CREATININE 0.65 mg/dL (0.55-1.02); SODIUM 143 mmol/L (136-145); TOTAL PROTEIN 5.8 g/dL (6.4-8.2); eGFR NON BLACK RACES > 60 (>60)
[2022-02-16] MEDS: PULMICORT NEB TX 0.5 MG NEB SCH ×2 (08:46→20:28)
--- NOTE | 2022-02-16 09:19 | RAD ---
HISTORYSOBSTUDYAP chestCOMPARISONDecember 2021FINDINGSHeart size normal. No definite consolidation, edema, pneumothorax or pleural fluid. Increasing density at the right lung base may be technical or related a developing infiltrate in the lower lobe.IMPRESSIONElectronically signed by: NIKI GUERRIER (Feb 16, 2022 09:18:22)
[2022-02-16] MEDS: FORTAZ or TAZICEF VIAL INJ 2 G in NS 100 ML IV 100 ML IV SCH ×2 (09:57→21:38)
--- NOTE | 2022-02-16 10:06 | PCM.PROG ---
Progress Note - Progress Note for Day of Date of Exam: 02/16/22 - Subjective Subjective: IS CURRENTLY INPATIENT STATUS FOR TREATMENT OF SEPSIS DUE TO URINARY TRACT INFECTION. TODAY, SHE IS ALERT, LYING IN BED ON MORNING ROUNDS. SHE RESPONDS TO VERBAL STIMUI, BUT IS NOTED TO BE DISORIENTED. SHE DOES FOLLOW SIMPLE COMMANDS. SHE DENIES COMPLAINTS THIS MORNING. ON EXAMINATION, HEART IS REGULAR IN RATE AND RHYTHM. BILATERAL LUNGS ARE NOTED WITH DIMINISHED LUNG SOUNDS THROUGHOUT. ABDOMEN IS ROUND, SOFT, AND NON-TENDER WITH NORMAL BOWEL SOUNDS NOTED IN ALL QUADRANTS. NO UPPER OR LOWER EXTREMITY EDEMA NOTED. HER VITALS THIS MORNING ARE: 98.3-71-20-98%-124/58. LABS WERE OBTAINED. WBC 10.2, RBC 4.12, HGB 12.9, HCT 38.3, PLT COUNT 141, SODIUM 143, POTASSIUM 3.4, CHLORIDE 109, BUN 10, CREATININE 0.65, GLUCOSE 213, CALCIUM 8.1, TOTAL BILI 4.10, AST 44, ALT 107, ALK PHOS 233, TOTAL PROTEIN 5.8, ALBUMIN 2.1. RESPIRATORY VIRAL PANEL IS PENDING. OUTPATIENT BLOOD CULTURES FROM 02/13/22 REVEALED KLEBSIELLA PNEUMONIAE AND E.COLI. A CHEST XRAY WAS OBTAINED THIS MORNING AND REVEALED: Heart size normal. No definite consolidation, edema, pneumothorax or pleural fluid. Increasing density at the right lung base may be technical or related a developing infiltrate in the lower lobe. SHE IS CURRENTLY RECEIVING D51/2 NS AT 125 ML/HR, FORTAZ 2G IV Q12H, DUONEBS TID, PULMICORT NEBS BID, TORADOL 15MG IV Q8H PRN, AND THE POTASSIUM AND MAGNESIUM PROTOCOLS. SHE WAS CLEARED BY SPEECH THERAPY TO HAVE A PURRED DIET WITH ASPIRATION PRECAUTIONS. WE WILL RESUME HER HOME MEDICATIONS THIS MORNING. OTHERWISE, WE WILL FOLLOW-UP WITH AM LABS AND CONTINUE TO MONITOR. TIME SPENT ON CLINICAL ASSESSMENT, REVIWING LABS AND IMAGING, DECISION MAKING, AND DOCUMENTATION GREATER THAN 45 MINUTES. - Past Medical Family Social History Past Med/Fam/Surg Hx: No changes since H&P Allergies: Allergies niacin Allergy (Mild, Verified 06/26/20 17:13) azithromycin Allergy (Verified 11/13/17 23:23) ciprofloxacin Allergy (Verified 11/13/17 23:23) codeine Allergy (Verified 11/13/17 23:23) Corticosteroids (Glucocorticoids) Allergy (Verified 11/13/17 23:23) levofloxacin Allergy (Verified 11/13/17 23:23) morphine Allergy (Verified 11/13/17 23:23) promethazine Allergy (Verified 11/13/17 23:23) topiramate Allergy (Verified 11/13/17 23:23) - Review of Systems ROS: No change since H&P - Vital Signs and I&O's Vital Signs: Temperature 98.3 F Pulse Rate [Right Radial] 71 Pulse Rate 86 Respiratory Rate 20 Blood Pressure [Right Arm] 124/58 Blood Pressure 97/46 O2 Sat by Pulse Oximetry 91 Intake and Output: Intake & Output 02/13/22 02/14/22 02/15/22 02/16/22 11:59 11:59 11:59 11:59 Intake Total 1700 / 1700 1599 / 1599 Balance 1700 / 1700 1599 / 1599 - Physical Exam Oriented: Not Oriented Eyes: Normal Ear: Normal Nose: Normal Throat: Normal Respiratory: Generalized, Diminished Cardiovascular: Normal : Normal Auscultation: Bowel Sounds: Normal Palpation: Normal Tenderness: Normal Skin: Normal Musculoskeletal: Normal Psychiatric: Normal Mood Description: Flat Affect: Flat Speech Pattern: Inappropriate - Laboratory and Diagnostics Result Diagrams: 02/16/22 06:06 02/16/22 06:06 Labs: 02/14/22 15:26 Urine,Catheterized Urine Culture - Final Laboratory WBC 10.2 X10^3/uL (3.6-10.0) H 02/16/22 06:06 RBC 4.12 X10^6/uL (3.5-5.4) 02/16/22 06:06 Hgb 12.9 g/dL (12.0-16.0) 02/16/22 06:06 Hct 38.3 % (36.0-47.0) 02/16/22 06:06 MCV 92.9 fL (80.0-100.0) 02/16/22 06:06 MCH 31.3 pg (27.0-34.0) 02/16/22 06:06 MCHC 33.7 g/dL (33.0-35.0) 02/16/22 06:06 RDW 13.3 % (11.6-16.5) 02/16/22 06:06 Plt Count 141 X10^3/uL (150.0-450.0) L 02/16/22 06:06 Plt Count Comment Adequate (ADEQUATE) 02/14/22 15:05 MPV 8.4 fL (7.4-11.0) 02/16/22 06:06 Neut % (Auto) 77.1 % (42.0-75.0) H 02/16/22 06:06 Lymph % (Auto) 17.7 % (21.0-51.0) L 02/16/22 06:06 [place] % (Auto) 4.7 % (0.0-13.0) 02/16/22 06:06 Eos % (Auto) 0.2 % (0.9-2.9) L 02/16/22 06:06 Baso % (Auto) 0.3 % (0.2-1.0) 02/16/22 06:06 Neut # (Auto) 7.9 x10^3/uL (2.2-4.8) H 02/16/22 06:06 Lymph # (Auto) 1.8 X10^3/uL (1.3-2.9) 02/16/22 06:06 [place] # (Auto) 0.5 x10^3/uL (0.3-0.8) 02/16/22 06:06 Eos # (Auto) 0.0 x10^3/uL (0.0-0.2) 02/16/22 06:06 Baso # (Auto) 0.0 X10^3/uL (0.0-0.1) 02/16/22 06:06 Absolute Nucleated RBC 0.0 /100WBC 02/16/22 06:06 Total Counted 100 02/14/22 15:05 Neutrophils % (Manual) 87 % (39-76) H 02/14/22 15:05 Lymphocytes % (Manual) 10 % (13-43) L 02/14/22 15:05 Monocytes % (Manual) 3 % (4-9) L 02/14/22 15:05 Plt Morphology Comment Normal (NORMAL) 02/14/22 15:05 RBC Morphology Normal (NORMAL) 02/14/22 15:05 Sodium 143 mmol/L (136-145) 02/16/22 06:06 Corrected Sodium 146 mmol/L (136-145) H 02/16/22 06:06 Potassium 3.4 mmol/L (3.5-5.1) L 02/16/22 06:06 Chloride 109 mmol/L (98-107) H 02/16/22 06:06 Carbon Dioxide 29.1 mmol/L (21-32) 02/16/22 06:06 BUN 10 mg/dL (7-18) 02/16/22 06:06 Creatinine 0.65 mg/dL (0.55-1.02) 02/16/22 06:06 Est GFR (MDRD) Af Amer > 60 (>60) 02/16/22 06:06 Est GFR (MDRD) Non-Af > 60 (>60) 02/16/22 06:06 Glucose 213 mg/dL (65-99) H 02/16/22 06:06 POC Glucose (mg/dL) 218 mg/dL (65-99) H 02/16/22 05:20 Lactic Acid 1.9 mmol/L (0.4-2.0) 02/15/22 08:46 Calcium 8.1 mg/dL (8.5-10.1) L 02/16/22 06:06 Corrected Calcium 9.6 mg/dL (8.5-10.1) 02/16/22 06:06 Phosphorus 3.8 mg/dL (2.6-4.7) 02/14/22 20:25 Magnesium 2.2 mg/dL (2.0-2.9) 02/14/22 20:25 Total Bilirubin 4.10 mg/dL (0.2-1.0) H 02/16/22 06:06 AST 44 Units/L (15-37) H 02/16/22 06:06 ALT 107 Units/L (12-78) H 02/16/22 06:06 Alkaline Phosphatase 233 Units/L (46-116) H 02/16/22 06:06 Troponin I High Sens 30.4 ng/L (4.0-60.0) 02/15/22 08:46 Total Protein 5.8 g/dL (6.4-8.2) L 02/16/22 06:06 Albumin 2.1 g/dL (3.4-5.0) L 02/16/22 06:06 Globulin 3.7 g/dL (2.5-4.5) 02/16/22 06:06 Albumin/Globulin Ratio 0.6 Ratio (1.1-2.1) L 02/16/22 06:06 Lipase 19 Units/L (73-393) L 02/14/22 20:25 Specimen Type Catherized urine 02/14/22 15: Urine Color Yellow (YELLOW) 02/14/22 15: Urine Appearance Cloudy (CLEAR) 02/14/22 15: Urine pH 5.0 (5.0 - 8.0) 02/14/22 15: Ur Specific [place] 1.015 (1.000-1.030) 02/14/22 15: Urine Protein 2+ (NEGATIVE) 02/14/22: Urine Glucose (UA) 4+ (NEGATIVE) 02/14/22 15: Urine Ketones 1+ (NEGATIVE) 02/14/22 15: Urine Blood 4+ (NEGATIVE) 02/14/22 15: Urine Nitrite Positive (NEGATIVE) 02/14/22 15: Urine Bilirubin 3+ (NEGATIVE) 02/14/22 15: Urine Urobilinogen 2+ (NORMAL) 02/14/22 15: Ur Leukocyte Esterase 3+ (NEGATIVE) 02/14/22 15: Urine RBC Tntc /HPF (0-3) A 02/14/22 15: Urine WBC Tntc /HPF (0-5) A 02/14/22 15: Ur Squamous Epith Cells Rare /HPF (NEGATIVE) 02/14/22 15: Urine Bacteria 1+ /HPF (NEGATIVE) 02/14/22 15: Ur Culture Indicated? Yes/culture set up 02/14/22 15: SARS-CoV-2 (PCR) Negative (NEGATIVE) 02/14/22 15:50 Influenza Type A (PCR) Negative (NEGATIVE) 02/14/22 15:50 Influenza Type B (PCR) Negative (NEGATIVE) 02/14/22 15:50 RSV (PCR) Negative (NEGATIVE) 02/14/22 15:50 - Plan (1) Sepsis due to urinary tract infection Status: Acute Plan: D51/2 NS AT 125 ML/HR, FORTAZ 2G IV Q12H, DUONEBS TID, PULMICORT NEBS BID, TORADOL 15MG IV Q8H PRN, AND THE POTASSIUM AND MAGNESIUM PROTOCOLS. (2) Hypokalemia Status: Acute (3) Dementia Status: Chronic Qualifiers: Dementia type: unspecified type Qualified Code(s): F03.90 - Unspecified dementia, unspecified severity, without behavioral disturbance, psychotic disturbance, mood disturbance, and anxiety (4) COPD (chronic obstructive pulmonary disease) Status: Chronic Qualifiers: COPD type: unspecified COPD Qualified Code(s): J44.9 - Chronic obstructive pulmonary disease, unspecified (5) Diabetes mellitus Status: Chronic Qualifiers: Diabetes mellitus type: type 2 Diabetes mellitus snf insulin use: without snf use Diabetes mellitus complication status: without complication Qualified Code(s): E11.9 - Type 2 diabetes mellitus without complications (6) Hypertension Status: Chronic Qualifiers: Hypertension type: primary hypertension Qualified Code(s): I10 - Essential (primary) hypertension
[2022-02-16] MEDS ORDERED: NovoLIN R (or HumuLIN R) SUBCUT PRN (10:08)
[2022-02-16] MEDS ORDERED: [UNRECOGNIZED DRUG - OTHER] PO SCH (10:15)
[2022-02-16] MEDS ORDERED: DEXLANSOPRAZOLE 30 MG PO SCH (10:15)
[2022-02-16] MEDS: ARICEPT TAB 10 MG PO SCH (11:47)
[2022-02-16] MEDS: NEURONTIN CAP 400 MG PO SCH ×2 (11:47→21:40)
[2022-02-16] MEDS: VITAMIN C PO SCH ×2 (11:47→21:41)
[2022-02-16] MEDS: NAMENDA TAB 10 MG PO SCH ×2 (11:47→21:41)
[2022-02-16] MEDS: COZAAR PO SCH (11:48)
[2022-02-16] MEDS: GLUCOTROL PO SCH (11:48)
[2022-02-16] MEDS: DEPAKOTE D.R. TAB PO SCH ×2 (11:48→21:40)
[2022-02-16] MEDS: K-RIDER 10 MEQ/NS 100 ML 10 MEQ/100 ML BAG IV PRN ×2 (13:02→14:06)
[2022-02-16] MEDS: [UNRECOGNIZED DRUG - OTHER] OP SCH ×2 (14:43→21:45)
[2022-02-16] MEDS: SENNOSIDES DOCUSATE SODIUM PO SCH ×2 (14:43→21:45)
[2022-02-16] MEDS: GLYCERIN OP SCH ×2 (14:43→21:45)
[2022-02-16] MEDS: CARBOXYMETHYLCELLULOSE OP SCH ×2 (14:43→21:45)
[2022-02-16] MEDS: HIPREX PO SCH ×2 (14:44→21:45)
[2022-02-16] MEDS: SNACK - Diabetic Appropriate PO SCH (21:00)
[2022-02-16] MEDS: ZOCOR TAB 20 MG PO SCH (21:40)
[2022-02-16] MEDS: PEPCID TAB 40 MG PO SCH (21:40)
[2022-02-16] MEDS: TORADOL 15 MG VIAL IVP PRN (21:49)
[2022-02-17] MEDS: D5 1/2 NS 1,000 ML 1,000 ML IV SCH (03:30)
[2022-02-17] MEDS: DUONEB 0.5 MG/3 MG (3 mL) NEB SCH ×4 (06:05→21:00)
[2022-02-17 06:09] LABS: BASOPHILS % (AUTO) 0.5 % (0.2-1.0); EOSINOPHILS # (AUTO) 0.1 x10^3/uL (0.0-0.2); EOSINOPHILS % (AUTO) 0.7 % (0.9-2.9); HEMATOCRIT 40.1 % (36.0-47.0); HEMOGLOBIN 13.4 g/dL (12.0-16.0); LYMPHOCYTES # (AUTO) 1.6 X10^3/uL (1.3-2.9); LYMPHOCYTES % (AUTO) 17.5 % (21.0-51.0); MEAN CORPUSCULAR HEMOGLOBIN 31.1 pg (27.0-34.0); MEAN CORPUSCULAR HGB CONC 33.5 g/dL (33.0-35.0); MEAN CORPUSCULAR VOLUME 92.9 fL (80.0-100.0); MEAN PLATELET VOLUME 8.8 fL (7.4-11.0); MONOCYTES # (AUTO) 0.7 x10^3/uL (0.3-0.8); MONOCYTES % (AUTO) 8.3 % (0.0-13.0); NEUTROPHILS # (AUTO) 6.5 x10^3/uL (2.2-4.8); RED BLOOD COUNT 4.31 X10^6/uL (3.5-5.4); RED CELL DISTRIBUTION WIDTH 13.7 % (11.6-16.5); WHITE BLOOD COUNT 8.9 X10^3/uL (3.6-10.0)
[2022-02-17 06:21] LABS: ALANINE AMINOTRANSFERASE 75 Units/L (12-78); ALBUMIN 1.8 g/dL (3.4-5.0); ALKALINE PHOSPHATASE 256 Units/L (46-116); ASPARTATE AMINO TRANSFERASE 34 Units/L (15-37); BLOOD UREA NITROGEN 7 mg/dL (7-18); CALCIUM 8.1 mg/dL (8.5-10.1); CARBON DIOXIDE 27.2 mmol/L (21-32); CHLORIDE 109 mmol/L (98-107); COR CA(FOR HYPOALB) 9.9 mg/dL (8.5-10.1); COR NA(FOR HYPERGLY) 145 mmol/L (136-145); CREATININE 0.65 mg/dL (0.55-1.02); MAGNESIUM 2.3 mg/dL (2.0-2.9); SODIUM 143 mmol/L (136-145); TOTAL PROTEIN 5.8 g/dL (6.4-8.2); eGFR NON BLACK RACES > 60 (>60)
--- NOTE | 2022-02-17 07:10 | RAD ---
HISTORYSOB HX: CVA, CAD, CHF, ASTHMA, COPD, DM, SKIN CANCER SX: HST. GB, HERNIA REPAIRSTUDYCHEST, 1 [id number] cardiomegaly. Improved aeration right base. Mild patchy bibasilar opacity. No visible pneumothorax or sizable pleural effusion or acute osseous finding.IMPRESSIONMild bibasilar atelectasis or infiltrate. Cardiomegaly.Electronically signed by: Avinash Ramirez (Feb 17, 2022 07:08:49)
[2022-02-17] MEDS: PULMICORT NEB TX 0.5 MG NEB SCH ×2 (09:02→21:00)
[2022-02-17] MEDS: COZAAR PO SCH (09:47)
[2022-02-17] MEDS: VITAMIN C PO SCH ×2 (09:47→22:43)
[2022-02-17] MEDS: FERROUS GLUCONATE PO SCH (09:47)
[2022-02-17] MEDS: DEPAKOTE D.R. TAB PO SCH ×2 (09:47→22:45)
[2022-02-17] MEDS: ARICEPT TAB 10 MG PO SCH (09:48)
[2022-02-17] MEDS: TAB-A-VITE PO SCH (09:48)
[2022-02-17] MEDS: GLUCOTROL PO SCH (09:48)
[2022-02-17] MEDS: NEURONTIN CAP 400 MG PO SCH ×2 (09:48→22:45)
[2022-02-17] MEDS: NAMENDA TAB 10 MG PO SCH ×2 (09:48→22:44)
[2022-02-17] MEDS: FORTAZ or TAZICEF VIAL INJ 2 G in NS 100 ML IV 100 ML IV SCH ×2 (09:48→22:46)
[2022-02-17] MEDS: PREVACID PO SCH (09:50)
[2022-02-17] MEDS: HIPREX PO SCH (09:50)
[2022-02-17] MEDS ORDERED: NS 1/2 1,000 ML IV 1,000 ML IV ONE ×2 (10:02→19:33)
[2022-02-17] MEDS: NS 1/2 1,000 ML IV 1,000 ML IV SCH ×3 (10:13→22:46)
--- NOTE | 2022-02-17 21:55 | PCM.PROG ---
Progress Note - Progress Note for Day of Date of Exam: 02/17/22 - Subjective Subjective: IS CURRENTLY INPATIENT STATUS FOR TREATMENT OF SEPSIS DUE TO URINARY TRACT INFECTION. TODAY, SHE IS ALERT, LYING IN BED ON MORNING ROUNDS. SHE RESPONDS TO VERBAL STIMUI, BUT IS NOTED TO BE DISORIENTED. SHE DOES FOLLOW SIMPLE COMMANDS. SHE DENIES COMPLAINTS THIS MORNING. ON EXAMINATION, HEART IS REGULAR IN RATE AND RHYTHM. BILATERAL LUNGS ARE NOTED WITH DIMINISHED LUNG SOUNDS THROUGHOUT. ABDOMEN IS ROUND, SOFT, AND NON-TENDER WITH NORMAL BOWEL SOUNDS NOTED IN ALL QUADRANTS. NO UPPER OR LOWER EXTREMITY EDEMA NOTED. HER VITALS THIS MORNING ARE: 98.5-59-24-99%-120/58. LABS WERE OBTAINED. WBC 8.9, RBC 4.31, HGB 13.4, HCT 40.1, PLT COUNT 135, SODIUM 143, POTASSIUM 3.6, CHLORIDE 109, BUN 7, CREATININE 0.65, GLUCOSE 181, CALCIUM 8.1, MAGNESIUM 2.3, TOTAL BILIRUBIN INCREASED TO 6.40, AST 34, ALT 75, ALK PHOS 256, TOTAL PROTEIN 5.8, ALBUMIN 1.8. RESPIRATORY VIRAL PANEL IS PENDING. OUTPATIENT BLOOD CULTURES FROM 02/13/22 REVEALED KLEBSIELLA PNEUMONIAE AND E.COLI. A CHEST XRAY WAS OBTAINED THIS MORNING AND REVEALED: Mild bibasilar atelectasis or infiltrate. Cardiomegaly. SHE IS CURRENTLY RECEIVING D51/2 NS AT 125 ML/HR, FORTAZ 2G IV Q12H, DUONEBS TID, PULMICORT NEBS BID, TORADOL 15MG IV Q8H PRN, THE POTASSIUM AND MAGNESIUM PROTOCOLS, AND HER HOME MEDICATIONS WERE RESUMED. SHE WAS CLEARED BY SPEECH THERAPY TO HAVE A PURRED DIET WITH ASPIRATION PRECAUTIONS. WE WILL CONTINUE WITH CURRENT PLAN OF CARE TODAY. OTHERWISE, WE WILL FOLLOW-UP WITH AM LABS AND CONTINUE TO MONITOR. TIME SPENT ON CLINICAL ASSESSMENT, REVIWING LABS AND IMAGING, DECISION MAKING, AND DOCUMENTATION GREATER THAN 45 MINUTES. - Past Medical Family Social History Past Med/Fam/Surg Hx: No changes since H&P Allergies: Allergies niacin Allergy (Mild, Verified 06/26/20 17:13) azithromycin Allergy (Verified 11/13/17 23:23) ciprofloxacin Allergy (Verified 11/13/17 23:23) codeine Allergy (Verified 11/13/17 23:23) Corticosteroids (Glucocorticoids) Allergy (Verified 11/13/17 23:23) levofloxacin Allergy (Verified 11/13/17 23:23) morphine Allergy (Verified 11/13/17 23:23) promethazine Allergy (Verified 11/13/17 23:23) topiramate Allergy (Verified 11/13/17 23:23) - Review of Systems ROS: No change since H&P - Vital Signs and I&O's Vital Signs: Temperature 100.6 F Pulse Rate [Right Radial] 78 Pulse Rate 89 Respiratory Rate 20 Blood Pressure [Left Arm] 125/60 Blood Pressure [Right Arm] 124/59 Blood Pressure 97/46 O2 Sat by Pulse Oximetry 97 Intake and Output: Intake & Output 02/15/22 02/16/22 02/17/22 02/18/22 11:59 11:59 11:59 11:59 Intake Total 1700 / 1700 1599 / 1599 2585 / 2585 1600 / 1600 Balance 1700 / 1700 1599 / 1599 2585 / 2585 1600 / 1600 - Physical Exam Oriented: Not Oriented Eyes: Normal Ear: Normal Nose: Normal Throat: Normal Respiratory: Generalized, Diminished Cardiovascular: Normal : Normal Auscultation: Bowel Sounds: Normal Tenderness: Normal Skin: Normal Musculoskeletal: Normal Psychiatric: Normal Mood Description: Flat Affect: Flat Speech Pattern: Inappropriate - Laboratory and Diagnostics Result Diagrams: 02/17/22 05:35 02/17/22 05:35 Labs: 02/14/22 15:26 Urine,Catheterized Urine Culture - Final Laboratory WBC 8.9 X10^3/uL (3.6-10.0) 02/17/22 05:35 RBC 4.31 X10^6/uL (3.5-5.4) 02/17/22 05:35 Hgb 13.4 g/dL (12.0-16.0) 02/17/22 05:35 Hct 40.1 % (36.0-47.0) 02/17/22 05:35 MCV 92.9 fL (80.0-100.0) 02/17/22 05:35 MCH 31.1 pg (27.0-34.0) 02/17/22 05:35 MCHC 33.5 g/dL (33.0-35.0) 02/17/22 05:35 RDW 13.7 % (11.6-16.5) 02/17/22 05:35 Plt Count 135 X10^3/uL (150.0-450.0) L 02/17/22 05:35 Plt Count Comment Adequate (ADEQUATE) 02/14/22 15:05 MPV 8.8 fL (7.4-11.0) 02/17/22 05:35 Neut % (Auto) 73.0 % (42.0-75.0) 02/17/22 05:35 Lymph % (Auto) 17.5 % (21.0-51.0) L 02/17/22 05:35 [place] % (Auto) 8.3 % (0.0-13.0) 02/17/22 05:35 Eos % (Auto) 0.7 % (0.9-2.9) L 02/17/22 05:35 Baso % (Auto) 0.5 % (0.2-1.0) 02/17/22 05:35 Neut # (Auto) 6.5 x10^3/uL (2.2-4.8) H 02/17/22 05:35 Lymph # (Auto) 1.6 X10^3/uL (1.3-2.9) 02/17/22 05:35 [place] # (Auto) 0.7 x10^3/uL (0.3-0.8) 02/17/22 05:35 Eos # (Auto) 0.1 x10^3/uL (0.0-0.2) 02/17/22 05:35 Baso # (Auto) 0.0 X10^3/uL (0.0-0.1) 02/17/22 05:35 Absolute Nucleated RBC 0.0 /100WBC 02/17/22 05:35 Total Counted 100 02/14/22 15:05 Neutrophils % (Manual) 87 % (39-76) H 02/14/22 15:05 Lymphocytes % (Manual) 10 % (13-43) L 02/14/22 15:05 Monocytes % (Manual) 3 % (4-9) L 02/14/22 15:05 Plt Morphology Comment Normal (NORMAL) 02/14/22 15:05 RBC Morphology Normal (NORMAL) 02/14/22 15:05 Sodium 143 mmol/L (136-145) 02/17/22 05:35 Corrected Sodium 145 mmol/L (136-145) 02/17/22 05:35 Potassium 3.6 mmol/L (3.5-5.1) 02/17/22 05:35 Chloride 109 mmol/L (98-107) H 02/17/22 05:35 Carbon Dioxide 27.2 mmol/L (21-32) 02/17/22 05:35 BUN 7 mg/dL (7-18) 02/17/22 05:35 Creatinine 0.65 mg/dL (0.55-1.02) 02/17/22 05:35 Est GFR (MDRD) Af Amer > 60 (>60) 02/17/22 05:35 Est GFR (MDRD) Non-Af > 60 (>60) 02/17/22 05:35 Glucose 181 mg/dL (65-99) H 02/17/22 05:35 POC Glucose (mg/dL) 85 mg/dL (65-99) 02/17/22 19:56 Lactic Acid 0.6 mmol/L (0.4-2.0) 02/16/22 22:26 Calcium 8.1 mg/dL (8.5-10.1) L 02/17/22 05:35 Corrected Calcium 9.9 mg/dL (8.5-10.1) 02/17/22 05:35 Phosphorus 3.8 mg/dL (2.6-4.7) 02/14/22 20:25 Magnesium 2.3 mg/dL (2.0-2.9) 02/17/22 05:35 Total Bilirubin 6.40 mg/dL (0.2-1.0) H 02/17/22 05:35 AST 34 Units/L (15-37) 02/17/22 05:35 ALT 75 Units/L (12-78) 02/17/22 05:35 Alkaline Phosphatase 256 Units/L (46-116) H 02/17/22 05:35 Troponin I High Sens 30.4 ng/L (4.0-60.0) 02/15/22 08:46 Total Protein 5.8 g/dL (6.4-8.2) L 02/17/22 05:35 Albumin 1.8 g/dL (3.4-5.0) L 02/17/22 05:35 Globulin 4.0 g/dL (2.5-4.5) 02/17/22 05:35 Albumin/Globulin Ratio 0.5 Ratio (1.1-2.1) L 02/17/22 05:35 Lipase 19 Units/L (73-393) L 02/14/22 20:25 Specimen Type Catherized urine 02/14/22 15: Urine Color Yellow (YELLOW) 02/14/22 15: Urine Appearance Cloudy (CLEAR) 02/14/22 15: Urine pH 5.0 (5.0 - 8.0) 02/14/22 15: Ur Specific [place] 1.015 (1.000-1.030) 02/14/22 15: Urine Protein 2+ (NEGATIVE) 02/14/22: Urine Glucose (UA) 4+ (NEGATIVE) 02/14/22 15: Urine Ketones 1+ (NEGATIVE) 02/14/22 15: Urine Blood 4+ (NEGATIVE) 02/14/22 15: Urine Nitrite Positive (NEGATIVE) 02/14/22 15: Urine Bilirubin 3+ (NEGATIVE) 02/14/22 15: Urine Urobilinogen 2+ (NORMAL) 02/14/22 15: Ur Leukocyte Esterase 3+ (NEGATIVE) 02/14/22 15: Urine RBC Tntc /HPF (0-3) A 02/14/22 15: Urine WBC Tntc /HPF (0-5) A 02/14/22 15: Ur Squamous Epith Cells Rare /HPF (NEGATIVE) 02/14/22 15: Urine Bacteria 1+ /HPF (NEGATIVE) 02/14/22 15: Ur Culture Indicated? Yes/culture set up 02/14/22 15: SARS-CoV-2 (PCR) Negative (NEGATIVE) 02/14/22 15:50 Influenza Type A (PCR) Negative (NEGATIVE) 02/14/22 15:50 Influenza Type B (PCR) Negative (NEGATIVE) 02/14/22 15:50 RSV (PCR) Negative (NEGATIVE) 02/14/22 15:50 - Plan (1) Sepsis due to urinary tract infection Status: Acute Plan: D51/2 NS AT 125 ML/HR, FORTAZ 2G IV Q12H, DUONEBS TID, PULMICORT NEBS BID, TORADOL 15MG IV Q8H PRN, AND THE POTASSIUM AND MAGNESIUM PROTOCOLS. (2) Hypokalemia Status: Acute (3) Dementia Status: Chronic Qualifiers: Dementia type: unspecified type Qualified Code(s): F03.90 - Unspecified dementia, unspecified severity, without behavioral disturbance, psychotic distu rbance, mood disturbance, and anxiety (4) COPD (chronic obstructive pulmonary disease) Status: Chronic Qualifiers: COPD type: unspecified COPD Qualified Code(s): J44.9 - Chronic obstructive pulmonary disease, unspecified (5) Diabetes mellitus Status: Chronic Qualifiers: Diabetes mellitus type: type 2 Diabetes mellitus alf insulin use: without parts counterman use Diabetes mellitus complication status: without complication Qualified Code(s): E11.9 - Type 2 diabetes mellitus without complications (6) Hypertension Status: Chronic Qualifiers: Hypertension type: primary hypertension Qualified Code(s): I10 - Essential (primary) hypertension
[2022-02-17] MEDS: SENOKOT PO SCH (22:43)
[2022-02-17] MEDS: PEPCID TAB 40 MG PO SCH (22:44)
[2022-02-17] MEDS: ZOCOR TAB 20 MG PO SCH (22:44)
[2022-02-17] MEDS: COLACE CAP 100 MG PO SCH (22:45)
[2022-02-17] MEDS: ARTIFICIAL TEARS DROPS OP SCH (22:47)
[2022-02-17] MEDS: SNACK - Diabetic Appropriate PO SCH (22:47)
[2022-02-18] MEDS ORDERED: NS 1/2 1,000 ML IV 1,000 ML IV ONE ×2 (05:32→17:00)
[2022-02-18] MEDS: NS 1/2 1,000 ML IV 1,000 ML IV SCH ×2 (05:35→15:07)
[2022-02-18] MEDS ORDERED: GLUTOSE 15 GEL ORAL PO PRN (05:37)
[2022-02-18] MEDS: DUONEB 0.5 MG/3 MG (3 mL) NEB SCH ×3 (05:55→21:30)
[2022-02-18 06:35] LABS: BASOPHILS # (AUTO) 0.1 X10^3/uL (0.0-0.1); BASOPHILS % (AUTO) 0.6 % (0.2-1.0); EOSINOPHILS # (AUTO) 0.2 x10^3/uL (0.0-0.2); EOSINOPHILS % (AUTO) 2.1 % (0.9-2.9); HEMATOCRIT 39.3 % (36.0-47.0); HEMOGLOBIN 13.3 g/dL (12.0-16.0); LYMPHOCYTES # (AUTO) 2.9 X10^3/uL (1.3-2.9); LYMPHOCYTES % (AUTO) 26.7 % (21.0-51.0); MEAN CORPUSCULAR HEMOGLOBIN 31.3 pg (27.0-34.0); MEAN CORPUSCULAR HGB CONC 33.9 g/dL (33.0-35.0); MEAN CORPUSCULAR VOLUME 92.5 fL (80.0-100.0); MONOCYTES # (AUTO) 0.8 x10^3/uL (0.3-0.8); MONOCYTES % (AUTO) 7.3 % (0.0-13.0); NEUTROPHILS # (AUTO) 6.8 x10^3/uL (2.2-4.8); NEUTROPHILS % (AUTO) 63.3 % (42.0-75.0); RED BLOOD COUNT 4.25 X10^6/uL (3.5-5.4); RED CELL DISTRIBUTION WIDTH 13.9 % (11.6-16.5); WHITE BLOOD COUNT 10.7 X10^3/uL (3.6-10.0)
[2022-02-18 06:50] LABS: ALANINE AMINOTRANSFERASE 57 Units/L (12-78); ALBUMIN 1.8 g/dL (3.4-5.0); ALKALINE PHOSPHATASE 241 Units/L (46-116); ASPARTATE AMINO TRANSFERASE 23 Units/L (15-37); BLOOD UREA NITROGEN 5 mg/dL (7-18); CARBON DIOXIDE 27.1 mmol/L (21-32); CHLORIDE 110 mmol/L (98-107); COR CA(FOR HYPOALB) 9.8 mg/dL (8.5-10.1); CREATININE 0.55 mg/dL (0.55-1.02); SODIUM 144 mmol/L (136-145); TOTAL PROTEIN 5.7 g/dL (6.4-8.2); eGFR NON BLACK RACES > 60 (>60)
--- NOTE | 2022-02-18 07:16 | RAD ---
HISTORYSOB Relevant Clinical InformationSTUDYCHEST, 1 [id number]/2022.FINDINGSThe trachea is midline. The cardiac silhouette is mildly enlarged.. The lungs are clear without focal infiltrate or effusion. The bony thorax is unremarkable.IMPRESSIONMild cardiomegalyNo active cardiopulmonary disease.Electronically signed by: Vance Ardon (Feb 18, 2022 07:15:17)
[2022-02-18] MEDS: PULMICORT NEB TX 0.5 MG NEB SCH ×2 (09:01→21:30)
[2022-02-18] MEDS: PREVACID PO SCH (10:00)
[2022-02-18] MEDS: FORTAZ or TAZICEF VIAL INJ 2 G in NS 100 ML IV 100 ML IV SCH ×2 (10:00→21:15)
[2022-02-18] MEDS: COZAAR PO SCH (10:00)
[2022-02-18] MEDS: ARTIFICIAL TEARS DROPS OP SCH ×2 (10:00→21:15)
[2022-02-18] MEDS: COLACE CAP 100 MG PO SCH ×2 (10:20→21:15)
[2022-02-18] MEDS: FERROUS GLUCONATE PO SCH (10:22)
[2022-02-18] MEDS: TAB-A-VITE PO SCH (10:22)
[2022-02-18] MEDS: VITAMIN C PO SCH ×2 (10:22→21:13)
[2022-02-18] MEDS: SENOKOT PO SCH ×2 (10:23→21:14)
[2022-02-18] MEDS: NAMENDA TAB 10 MG PO SCH ×2 (10:23→21:15)
[2022-02-18] MEDS: DEPAKOTE D.R. TAB PO SCH ×2 (10:24→21:14)
[2022-02-18] MEDS: NEURONTIN CAP 400 MG PO SCH ×2 (10:24→21:14)
[2022-02-18] MEDS: ARICEPT TAB 10 MG PO SCH (10:24)
[2022-02-18] MEDS: GLUCOTROL PO SCH (10:27)
[2022-02-18] MEDS: TORADOL 15 MG VIAL IVP PRN ×2 (11:51)
[2022-02-18] MEDS: LOVENOX INJ 40 MG SYR SC SCH (11:51)
[2022-02-18 17:22] LABS: IRON 40 ug/dL (50-175)
[2022-02-18] MEDS: ZOCOR TAB 20 MG PO SCH (21:14)
[2022-02-18] MEDS: PEPCID TAB 40 MG PO SCH (21:14)
[2022-02-18] MEDS: SNACK - Diabetic Appropriate PO SCH (21:15)
--- NOTE | 2022-02-18 21:57 | PCM.PROG ---
Progress Note - Progress Note for Day of Date of Exam: 02/18/22 - Subjective Subjective: IS CURRENTLY INPATIENT STATUS FOR TREATMENT OF SEPSIS DUE TO URINARY TRACT INFECTION AND PNEUMONIA. TODAY, SHE IS ALERT, LYING IN BED ON MORNING ROUNDS. SHE RESPONDS TO VERBAL STIMUI, BUT CONTINUES TO BE DISORIENTED. SHE DOES FOLLOW SIMPLE COMMANDS. ON EXAMINATION, HEART IS REGULAR IN RATE AND RHYTHM. BILATERAL LUNGS ARE NOTED WITH DIMINISHED LUNG SOUNDS THROUGHOUT. ABDOMEN IS ROUND, SOFT, AND NON-TENDER WITH NORMAL BOWEL SOUNDS NOTED IN ALL QUADRANTS. NO UPPER OR LOWER EXTREMITY EDEMA NOTED. HER VITALS THIS MORNING ARE: 98.2-74-20-94%-129/60. LABS WERE OBTAINED. WBC 10.7, RBC 4.25, HGB 13.3, HCT 39.3, SODIUM 144, POTASSIUM 3.6, CHLORIDE 110, BUN 5, CREATININE 0.55, GLUCOSE 58, CALCIUM 8.0, IRON 40, TRANSFERRIN 112, FERRITIN 439, TOTAL 2.90, AST 23, ALT 57, ALK PHOS 241, TOTAL PROTEIN 5.7, ALBUMIN 1.8. RESPIRATORY VIRAL PANEL IS PENDING. OUTPATIENT BLOOD CULTURES FROM 02/13/22 REVEALED KLEBSIELLA PNEUMONIAE AND E.COLI. A CHEST XRAY WAS OBTAINED THIS MORNING AND REVEALED: The trachea is midline. The cardiac silhouette is mildly enlarged. The lungs are clear without focal infiltrate or effusion. The bony thorax is unremarkable. SHE IS CURRENTLY RECEIVING D51/2 NS AT 125 ML/HR, FORTAZ 2G IV Q12H, DUONEBS TID, PULMICORT NEBS BID, TORADOL 15MG IV Q8H PRN, THE POTASSIUM AND MAGNESIUM PROTOCOLS, AND HER HOME MEDICATIONS WERE RESUMED. WE WILL CONTINUE WITH CURRENT PLAN OF CARE TODAY. OTHERWISE, WE WILL FOLLOW-UP WITH AM LABS AND CONTINUE TO MONITOR. TIME SPENT ON CLINICAL ASSESSMENT, REVIWING LABS AND IMAGING, DECISION MAKING, AND DOCUMENTATION GREATER THAN 45 MINUTES. - Past Medical Family Social History Past Med/Fam/Surg Hx: No changes since H&P Allergies: Allergies niacin Allergy (Mild, Verified 06/26/20 17:13) azithromycin Allergy (Verified 11/13/17 23:23) ciprofloxacin Allergy (Verified 11/13/17 23:23) codeine Allergy (Verified 11/13/17 23:23) Corticosteroids (Glucocorticoids) Allergy (Verified 11/13/17 23:23) levofloxacin Allergy (Verified 11/13/17 23:23) morphine Allergy (Verified 11/13/17 23:23) promethazine Allergy (Verified 11/13/17 23:23) topiramate Allergy (Verified 11/13/17 23:23) - Review of Systems ROS: No change since H&P - Vital Signs and I&O's Vital Signs: Temperature 99.4 F Pulse Rate [Right Radial] 81 Pulse Rate 86 Respiratory Rate 20 Blood Pressure [Left Arm] 123/58 Blood Pressure [Right Arm] 124/59 Blood Pressure 97/46 O2 Sat by Pulse Oximetry 97 Intake and Output: Intake & Output 02/16/22 02/17/22 02/18/22 02/19/22 11:59 11:59 11:59 11:59 Intake Total 1599 / 1599 2585 / 2585 3580 / 3580 120 / 120 Balance 1599 / 1599 2585 / 2585 3580 / 3580 120 / 120 - Physical Exam Oriented: Not Oriented Eyes: Normal Ear: Normal Nose: Normal Throat: Normal Respiratory: Generalized, Diminished Cardiovascular: Normal : Normal Auscultation: Bowel Sounds: Normal Tenderness: Normal Skin: Normal Musculoskeletal: Normal Psychiatric: Normal Mood Description: Flat Affect: Flat Speech Pattern: Inappropriate - Laboratory and Diagnostics Result Diagrams: 02/18/22 06:15 02/18/22 06:15 Labs: 02/14/22 15:26 Urine,Catheterized Urine Culture - Final Laboratory WBC 10.7 X10^3/uL (3.6-10.0) H 02/18/22 06:15 RBC 4.25 X10^6/uL (3.5-5.4) 02/18/22 06:15 Hgb 13.3 g/dL (12.0-16.0) 02/18/22 06:15 Hct 39.3 % (36.0-47.0) 02/18/22 06:15 MCV 92.5 fL (80.0-100.0) 02/18/22 06:15 MCH 31.3 pg (27.0-34.0) 02/18/22 06:15 MCHC 33.9 g/dL (33.0-35.0) 02/18/22 06:15 RDW 13.9 % (11.6-16.5) 02/18/22 06:15 Plt Count 157 X10^3/uL (150.0-450.0) 02/18/22 06:15 Plt Count Comment Adequate (ADEQUATE) 02/14/22 15:05 MPV 8.0 fL (7.4-11.0) 02/18/22 06:15 Neut % (Auto) 63.3 % (42.0-75.0) 02/18/22 06:15 Lymph % (Auto) 26.7 % (21.0-51.0) 02/18/22 06:15 [place] % (Auto) 7.3 % (0.0-13.0) 02/18/22 06:15 Eos % (Auto) 2.1 % (0.9-2.9) 02/18/22 06:15 Baso % (Auto) 0.6 % (0.2-1.0) 02/18/22 06:15 Neut # (Auto) 6.8 x10^3/uL (2.2-4.8) H 02/18/22 06:15 Lymph # (Auto) 2.9 X10^3/uL (1.3-2.9) 02/18/22 06:15 [place] # (Auto) 0.8 x10^3/uL (0.3-0.8) 02/18/22 06:15 Eos # (Auto) 0.2 x10^3/uL (0.0-0.2) 02/18/22 06:15 Baso # (Auto) 0.1 X10^3/uL (0.0-0.1) 02/18/22 06:15 Absolute Nucleated RBC 0.0 /100WBC 02/18/22 06:15 Total Counted 100 02/14/22 15:05 Neutrophils % (Manual) 87 % (39-76) H 02/14/22 15:05 Lymphocytes % (Manual) 10 % (13-43) L 02/14/22 15:05 Monocytes % (Manual) 3 % (4-9) L 02/14/22 15:05 Plt Morphology Comment Normal (NORMAL) 02/14/22 15:05 RBC Morphology Normal (NORMAL) 02/14/22 15:05 Sodium 144 mmol/L (136-145) 02/18/22 06:15 Corrected Sodium TNP 02/18/22 06:15 Potassium 3.6 mmol/L (3.5-5.1) 02/18/22 06:15 Chloride 110 mmol/L (98-107) H 02/18/22 06:15 Carbon Dioxide 27.1 mmol/L (21-32) 02/18/22 06:15 BUN 5 mg/dL (7-18) L 02/18/22 06:15 Creatinine 0.55 mg/dL (0.55-1.02) 02/18/22 06:15 Est GFR (MDRD) Af Amer > 60 (>60) 02/18/22 06:15 Est GFR (MDRD) Non-Af > 60 (>60) 02/18/22 06:15 Glucose 58 mg/dL (65-99) L 02/18/22 06:15 POC Glucose (mg/dL) 90 mg/dL (65-99) 02/18/22 20:32 Lactic Acid 0.6 mmol/L (0.4-2.0) 02/16/22 22:26 Calcium 8.0 mg/dL (8.5-10.1) L 02/18/22 06:15 Corrected Calcium 9.8 mg/dL (8.5-10.1) 02/18/22 06:15 Phosphorus 3.8 mg/dL (2.6-4.7) 02/14/22 20:25 Magnesium 2.3 mg/dL (2.0-2.9) 02/17/22 05:35 Iron 40 ug/dL (50-175) L 02/18/22 06:15 Transferrin 112 mg/dL (202-364) L 02/18/22 06:15 Ferritin 439 ng/mL (8-252) H 02/18/22 06:15 Total Bilirubin 2.90 mg/dL (0.2-1.0) H 02/18/22 06:15 AST 23 Units/L (15-37) 02/18/22 06:15 ALT 57 Units/L (12-78) 02/18/22 06:15 Alkaline Phosphatase 241 Units/L (46-116) H 02/18/22 06:15 Troponin I High Sens 30.4 ng/L (4.0-60.0) 02/15/22 08:46 Total Protein 5.7 g/dL (6.4-8.2) L 02/18/22 06:15 Albumin 1.8 g/dL (3.4-5.0) L 02/18/22 06:15 Globulin 3.9 g/dL (2.5-4.5) 02/18/22 06:15 Albumin/Globulin Ratio 0.5 Ratio (1.1-2.1) L 02/18/22 06:15 Lipase 19 Units/L (73-393) L 02/14/22 20:25 Specimen Type Catherized urine 02/14/22 15: Urine Color Yellow (YELLOW) 02/14/22 15: Urine Appearance Cloudy (CLEAR) 02/14/22 15: Urine pH 5.0 (5.0 - 8.0) 02/14/22 15: Ur Specific [place] 1.015 (1.000-1.030) 02/14/22 15: Urine Protein 2+ (NEGATIVE) 02/14/22 15: Urine Glucose (UA) 4+ (NEGATIVE) 02/14/22 15: Urine Ketones 1+ (NEGATIVE) 02/14/22 15: Urine Blood 4+ (NEGATIVE) 02/14/22 15: Urine Nitrite Positive (NEGATIVE) 02/14/22 15: Urine Bilirubin 3+ (NEGATIVE) 02/14/22 15: Urine Urobilinogen 2+ (NORMAL) 02/14/22 15: Ur Leukocyte Esterase 3+ (NEGATIVE) 02/14/22 15: Urine RBC Tntc /HPF (0-3) A 02/14/22 15: Urine WBC Tntc /HPF (0-5) A 02/14/22 15: Ur Squamous Epith Cells Rare /HPF (NEGATIVE) 02/14/22 15: Urine Bacteria 1+ /HPF (NEGATIVE) 02/14/22 15: Ur Culture Indicated? Yes/culture set up 02/14/22 15: SARS-CoV-2 (PCR) Negative (NEGATIVE) 02/14/22 15:50 Influenza Type A (PCR) Negative (NEGATIVE) 02/14/22 15:50 Influenza Type B (PCR) Negative (NEGATIVE) 02/14/22 15:50 RSV (PCR) Negative (NEGATIVE) 02/14/22 15:50 Resp Viral Panel (PCR) See scanned report 12/15/22 22:40 - Plan (1) Sepsis due to urinary tract infection Status: Acute Plan: D51/2 NS AT 125 ML/HR, FORTAZ 2G IV Q12H, DUONEBS TID, PULMICORT NEBS BID, TORADOL 15MG IV Q8H PRN, AND THE POTASSIUM AND MAGNESIUM PROTOCOLS. (2) Hypokalemia Status: Acute (3) Dementia Status: Chronic Qualifiers: Dementia type: unspecified type Qualified Code(s): F03.90 - Unspecified dementia, unspecified severity, without behavioral disturbance, psychotic disturbance, mood disturbance, and anxiety (4) COPD (chronic obstructive pulmonary disease) Status: Chronic Qualifiers: COPD type: unspecified COPD Qualified Code(s): J44.9 - Chronic obstructive pulmonary disease, unspecified (5) Diabetes mellitus Status: Chronic Qualifiers: Diabetes mellitus type: type 2 Diabetes mellitus alf insulin use: without long term care social worker use Diabetes mellitus complication status: without complication Qualified Code(s): E11.9 - Type 2 diabetes mellitus without complications (6) Hypertension Status: Chronic Qualifiers: Hypertension type: primary hypertension Qualified Code(s): I10 - Essential (primary) hypertension
[2022-02-18] MEDS: ALBUMIN HUMAN 25%- 100 ML 100 ML IV SCH (23:01)
[2022-02-19] MEDS ORDERED: NS 1/2 1,000 ML IV 1,000 ML IV ONE ×2 (02:31→14:04)
[2022-02-19] MEDS: NS 1/2 1,000 ML IV 1,000 ML IV SCH ×3 (03:53→14:17)
[2022-02-19] MEDS: DUONEB 0.5 MG/3 MG (3 mL) NEB SCH ×3 (06:10→21:00)
[2022-02-19 06:39] LABS: BASOPHILS % (AUTO) 0.4 % (0.2-1.0); EOSINOPHILS # (AUTO) 0.2 x10^3/uL (0.0-0.2); EOSINOPHILS % (AUTO) 2.2 % (0.9-2.9); HEMATOCRIT 36.6 % (36.0-47.0); HEMOGLOBIN 12.1 g/dL (12.0-16.0); LYMPHOCYTES # (AUTO) 1.9 X10^3/uL (1.3-2.9); LYMPHOCYTES % (AUTO) 24.1 % (21.0-51.0); MEAN CORPUSCULAR HEMOGLOBIN 30.8 pg (27.0-34.0); MEAN CORPUSCULAR VOLUME 93.3 fL (80.0-100.0); MEAN PLATELET VOLUME 8.3 fL (7.4-11.0); MONOCYTES # (AUTO) 0.6 x10^3/uL (0.3-0.8); MONOCYTES % (AUTO) 7.9 % (0.0-13.0); NEUTROPHILS # (AUTO) 5.2 x10^3/uL (2.2-4.8); NEUTROPHILS % (AUTO) 65.4 % (42.0-75.0); RED BLOOD COUNT 3.93 X10^6/uL (3.5-5.4); RED CELL DISTRIBUTION WIDTH 13.4 % (11.6-16.5); WHITE BLOOD COUNT 7.9 X10^3/uL (3.6-10.0)
[2022-02-19 06:57] LABS: ALANINE AMINOTRANSFERASE 37 Units/L (12-78); ALBUMIN 2.2 g/dL (3.4-5.0); ALKALINE PHOSPHATASE 245 Units/L (46-116); ASPARTATE AMINO TRANSFERASE 21 Units/L (15-37); BLOOD UREA NITROGEN 4 mg/dL (7-18); CALCIUM 8.2 mg/dL (8.5-10.1); CARBON DIOXIDE 29.2 mmol/L (21-32); CHLORIDE 111 mmol/L (98-107); COR CA(FOR HYPOALB) 9.6 mg/dL (8.5-10.1); CREATININE 0.51 mg/dL (0.55-1.02); SODIUM 145 mmol/L (136-145); TOTAL PROTEIN 5.9 g/dL (6.4-8.2); eGFR NON BLACK RACES > 60 (>60)
--- NOTE | 2022-02-19 08:02 | RAD ---
HISTORYShortness of breathSTUDYChest AP [id number]/19/2022FINDINGSHear t is enlarged. No congestive heart failure is noted. Aorta is calcified and mildly ectatic. Lungs are mildly hyperinflated but free of acute infiltrates. No pleural effusions are identified. Bony thorax is unremarkable.IMPRESSIONMild cardiomegaly without congestive heart failureLungs mildly hyperinflated but free of acute infiltratesElectronically signed by: MAURISIO ENRIQUE (Feb 19, 2022 08:01:26)
--- NOTE | 2022-02-19 09:16 | DR.CONSULT ---
Consult - Consultation for Day of: Date: 02/18/22 (GI) - Chief Complaint Chief Complaint: Patient is a 76 y/o who is referred for elevated bilirubin. Patient awake and answers some questions but appears to be confused, unable to obtain ROS. Patient denies previous EGD. Last colonoscopy 12/10/18- multiple, large tubulovillous adenoma polyps x2, sigmoid diverticulosis, internal hemorrhoids. Patient is currently on Dexilant and Pepcid daily. Hgb 13.3, Hct 39.3, Plt 157, T.bili 2.90, Ast 23, Alt 57, Alp 241. - Past Medical History Past Medical History: Angina, Diabetes, Schizophrenia, Anemia, COPD, GERD, CHF - Past Surgical History Surgical History: Cholecystectomy, Hysterectomy, Ortho Surgery - Family History Family Medical History: Diabetes Mellitus, Cancer, [place], Coronary Artery Disease, Heart Failure, Sudden Cardiac , Hypertension - Social History Does patient currently use any type of tobacco product: No Have you used tobacco products in the last 12 months: No Type of Tobacco Use: None Does any household member use tobacco: No Alcohol Use: None Drug Use: None - Medications Home Medications: niacin Allergy (Mild, Verified 06/26/20 17:13) azithromycin Allergy (Verified 11/13/17 23:23) ciprofloxacin Allergy (Verified 11/13/17 23:23) codeine Allergy (Verified 11/13/17 23:23) Corticosteroids (Glucocorticoids) Allergy (Verified 11/13/17 23:23) levofloxacin Allergy (Verified 11/13/17 23:23) morphine Allergy (Verified 11/13/17 23:23) promethazine Allergy (Verified 11/13/17 23:23) topiramate Allergy (Verified 11/13/17 23:23) CONTINUE taking the following medications donepezil 10 mg tablet 10 mg PO QDAY 02/14/22 [History] methenamine hippurate 1 gram tablet 1 g PO BID 02/14/22 [History] - Review of Systems Constitutional: See HPI. denies: No Symptoms Reported, Fever, Chills, Sweats, Weakness, Malaise, Other Eyes: See HPI. denies: No Symptoms Reported, Pain, Vision Change, Conjunctivae Inflammation, Eyelid Inflammation, Redness, Other ENT: See HPI. denies: No Symptoms Reported, Ear Pain, Ear Discharge, Nose Pain, Nose Discharge, Nose Congestion, Mouth Pain, Mouth Swelling, Throat Pain, Throat Swelling, Other Respiratory: See HPI. denies: No Symptoms Reported, Cough, Dry, Shortness of Breath, Hemoptysis, SOB with Excertion, Pleuritic Pain, Sputum, Wheezing, Other Cardiovascular: See HPI. denies: No Symptoms Reported, Chest Pain, Pal pitations, Orthopnea, Paroxysmal Noc. Dyspnea, Edema, Light Headedness, Other Gastrointestinal: See HPI. denies: No Symptoms Reported, Nausea, Vomiting, Abdominal Pain, Diarrhea, Constipation, Melena, Hematochezia, Other Genitourinary: See HPI. denies: No Symptoms Reported, Dysuria, Frequency, Incontinence, Hematuria, Retention, Other Musculoskeletal: See HPI. denies: No Symptoms Reported, Shoulder Pain, Arm Pain, Back Pain, Hand Pain, Leg Pain, Foot Pain, Neck Pain, Other Skin: denies: No Symptoms Reported, See HPI, Rash, Lesions, Jaundice, Bruising, Wound, Ecchymosis, Other Neurological: See HPI. denies: No Symptoms Reported, Weakness, Numbness, Incoordination, Change in Speech, Confusion, Seizures, Other - Physical Exam Vital Signs: Temperature 98.6 F Pulse Rate [Right Radial] 71 Pulse Rate 86 Respiratory Rate 18 Blood Pressure [Left Arm] 124/58 Blood Pressure [Right Arm] 124/59 Blood Pressure 97/46 O2 Sat by Pulse Oximetry 96 Oriented: Person. negative: Normal, Time, Place, Not Oriented, Unable to test, Other Eyes: Normal. negative: Blurred Vision, Diplopia, Discharge, Pain, Redness, Photophobia, Other Ear: negative: Normal, Right, Left, Swelling, Ecchymosis, Hemotypanum, Abrasion, Laceration Nose: negative: Normal, Injected, Discharge, Blood, Other Throat: negative: Normal, Tonsillar Hypertrophy, Red, Exudate, Dry, Other Respiratory: Diminished Throughout. negative: Clear Throughout, Rhonchi Throughout, Rales Throughout, Wheezes Throughout, RUL Clear, RML Clear, RLL Clear, KEYUR Clear, LML Clear, LLL Clear, RUL Diminished, RML Diminished, RLL Diminished, KEYUR Diminished, LML Diminished, LLL Diminished, RUL Absent, RML Absent, RLL Absent, KEYUR Absent, LML Absent, LLL Absent, RUL Rhonchi, RML Rhonchi, RLL Rhonchi, KEYUR Rhonchi, LML Rhonchi, LLL Rhonchi, RUL Insp. Wheeze, RML Insp. Wheeze, RLL Insp. Wheeze, KEYUR Insp.Wheeze, LML Insp.Wheeze, LLL Insp.Wheeze, RUL Exp. Wheeze, RML Exp. Wheeze, RLL Exp. Wheeze, KEYUR Exp. Wheeze, LML Exp. Wheeze, LLL Exp. Wheeze, RUL Rales, RML Rales, RLL Rales, KEYUR Rales, LML Rales, LLL Rales, RUL Rub, RML Rub, RLL Rub, KEYUR Rub, LML Rub, LLL Rub, RUL Squeak, RML Squeak, RLL Squeak, KEYUR Squeak, LML Squeak, LLL Squeak Cardiovascular: Normal. negative: Tachycardia, Bradycardia, Irregular, S3, S4, Systolic, Diastolic, Murmur, Edema, Other : negative: Normal, Dysuria, Hematuria, Frequency, Discharge, Testicular Pain, Bleeding, , Other Auscultation: Bowel Sounds: negative: Normal, Bruit, Absent, Increased, Dec reased, High Pitched, Other Palpation: Normal. negative: Spleen Enlarged, Liver Enlarged, Mass Pulsatile, Other Tenderness: Normal. negative: Diffuse, RUQ, RLQ, LUQ, LLQ, Epigastric, Periumbilical, Suprapubic, Mild, Moderate, Severe, Rebound, Guarding, Rigidity, Other Skin: Normal. negative: Decreased Turgur, Rash, Papular, Macular, Maculopapular, Vesicular, Pustular, Petechial, Red, Tender, Hot, Diaphoresis, Wound, Bruising, Ecchymosis, Other Musculoskeletal: Normal. negative: Right, Left, Shoulder, Clavicle, Arm, Elbow, Forearm, Wrist, Hand, Hip, Thigh, Knee, Leg, Ankle, Foot, Back:Thoracic, Back:Lumbar, Back:Midline, Back:Paraspinous, Pelvis, Swelling, Tender, Deformity, Pulse Deficit, Motor Deficit, Sensory Deficit, Instability, Crepitance Psychiatric: Normal. negative: Anxiety, Depression, Agitation, Other Mood Description: Calm. negative: Angry, Apathetic, Depressed, Fearful, Flat, Happy, Hostile, Sad, Suspicious, Withdrawn, Anxious, Appropriate, Labile Affect: negative: Angry, Anxious, Depressed, Flat, Hysterical, Quiet, Violent, Normal Speech Pattern: Inappropriate. negative: Clear, Appropriate, Unclear, Delayed, Slurred, Excessive, Aphasic, Artificially Ventilated, Trach(not ventilated) - Plan Plan: Assessment. 1. Abnormal LFTs. 2. Hyperbilirubinemia. Plan: Serologic liver workup. Patient will need MRCP. Monitor LFTs. Cont Dexilant and Pepcid. Plan D/W Dr. Francis - Allergies Allergies/Adverse Reactions: Allergies Allergy/AdvReac Type Severity Reaction Status Date / Time niacin Allergy Mild Verified 06/26/20 17:13 azithromycin Allergy Verified 11/13/17 23:23 ciprofloxacin Allergy Verified 11/13/17 23:23 codeine Allergy Verified 11/13/17 23:23 Corticosteroids Allergy Verified 11/13/17 23:23 (Glucocorticoids) levofloxacin Allergy Verified 11/13/17 23:23 morphine Allergy Verified 11/13/17 23:23 promethazine Allergy Verified 11/13/17 23:23 topiramate Allergy Verified 11/13/17 23:23
[2022-02-19] MEDS: LOVENOX INJ 40 MG SYR SC SCH (09:24)
[2022-02-19] MEDS: SENOKOT PO SCH ×2 (09:25→21:05)
[2022-02-19] MEDS: ARICEPT TAB 10 MG PO SCH (09:25)
[2022-02-19] MEDS: NEURONTIN CAP 400 MG PO SCH ×2 (09:25→21:05)
[2022-02-19] MEDS: COLACE CAP 100 MG PO SCH ×2 (09:25→21:06)
[2022-02-19] MEDS: TAB-A-VITE PO SCH (09:25)
[2022-02-19] MEDS: NAMENDA TAB 10 MG PO SCH ×2 (09:25→21:05)
[2022-02-19] MEDS: FERROUS GLUCONATE PO SCH (09:26)
[2022-02-19] MEDS: COZAAR PO SCH (09:26)
[2022-02-19] MEDS: DEPAKOTE D.R. TAB PO SCH ×2 (09:26→21:05)
[2022-02-19] MEDS: VITAMIN C PO SCH ×2 (09:26→21:05)
[2022-02-19] MEDS: PREVACID PO SCH (09:27)
[2022-02-19] MEDS: GLUCOTROL PO SCH (09:27)
[2022-02-19] MEDS: ARTIFICIAL TEARS DROPS OP SCH ×2 (09:31→21:05)
[2022-02-19] MEDS: FORTAZ or TAZICEF VIAL INJ 2 G in NS 100 ML IV 100 ML IV SCH ×2 (09:57→22:05)
--- NOTE | 2022-02-19 10:34 | MRI ---
HISTORYELEVATED BILIRUBINSTUDYMRCPCOMPARISONCT abdomen and pelvis dated 02/17/2019TECHNIQUEMultiplanar multi sequences images through the abdomen were performed without contrast. 3D MPGR images were also performedFINDINGSThere is no evidence of pleural effusions, the liver is enlarged measuring in length 17.8 centimeters, the spleen is measuring in length 11.9 centimeters. No significant drop of signal on out of phase to suggest fatty liver.There is levoscoliosis without evidence of abnormal bone marrow edema.Patient is status post cholecystectomy. There is a high-signal on T2 lesion projecting medial to the caudate lobe, not well seen on prior study, could represent fluid and these area measures approximately 2.1 x 1.5 by 1.4 centimeters.There is no intrahepatic biliary dilatation, the common bile duct measures approximately in the mid aspect 10 millimeters, there are multiple filling defect in the most distal aspect suspicious for stones measuring as a conglomerate in craniocaudal dimension 1.5 centimeters, in transverse dimension 1 centimeters and in AP dimension 6 millimeters.There is no dilatation of the pancreatic duct.No adrenal masses. There are bilateral normal-sized kidneys without hydronephrosis, no focal dilatation of the abdominal aorta. The stomach is not distended.IMPRESSIONStatus post cholecystectomyDilated common bile duct with multiple stones in the distal aspect as described above. No significant intrahepatic biliary dilatation.Focal high-signal on T2 round area medial to the caudate lobe is nonspecific could represent fluid.Electronically signed by: Magdalena Nicholson (Feb 19, 2022 10:33:45)
[2022-02-19] MEDS: PULMICORT NEB TX 0.5 MG NEB SCH ×2 (12:31→21:00)
[2022-02-19] MEDS: ALBUMIN HUMAN 25%- 100 ML 100 ML IV SCH (21:02)
[2022-02-19] MEDS: ZOCOR TAB 20 MG PO SCH (21:05)
[2022-02-19] MEDS: PEPCID TAB 40 MG PO SCH (21:06)
[2022-02-19] MEDS: SNACK - Diabetic Appropriate PO SCH (22:02)
[2022-02-20] MEDS ORDERED: NS 1/2 1,000 ML IV 1,000 ML IV ONE ×2 (00:47→04:40)
[2022-02-20] MEDS: NS 1/2 1,000 ML IV 1,000 ML IV SCH ×3 (01:10→14:16)
[2022-02-20] MEDS: DUONEB 0.5 MG/3 MG (3 mL) NEB SCH ×4 (05:54→21:00)
[2022-02-20 07:15] LABS: BASOPHILS % (AUTO) 0.6 % (0.2-1.0); EOSINOPHILS # (AUTO) 0.2 x10^3/uL (0.0-0.2); HEMATOCRIT 37.7 % (36.0-47.0); HEMOGLOBIN 12.5 g/dL (12.0-16.0); LYMPHOCYTES # (AUTO) 1.6 X10^3/uL (1.3-2.9); LYMPHOCYTES % (AUTO) 19.7 % (21.0-51.0); MEAN CORPUSCULAR HEMOGLOBIN 31.1 pg (27.0-34.0); MEAN CORPUSCULAR HGB CONC 33.1 g/dL (33.0-35.0); MEAN CORPUSCULAR VOLUME 93.9 fL (80.0-100.0); MEAN PLATELET VOLUME 7.9 fL (7.4-11.0); MONOCYTES # (AUTO) 0.8 x10^3/uL (0.3-0.8); MONOCYTES % (AUTO) 10.3 % (0.0-13.0); NEUTROPHILS # (AUTO) 5.5 x10^3/uL (2.2-4.8); NEUTROPHILS % (AUTO) 67.4 % (42.0-75.0); RED BLOOD COUNT 4.01 X10^6/uL (3.5-5.4); RED CELL DISTRIBUTION WIDTH 13.7 % (11.6-16.5); WHITE BLOOD COUNT 8.1 X10^3/uL (3.6-10.0)
[2022-02-20 07:33] LABS: ALANINE AMINOTRANSFERASE 33 Units/L (12-78); ALBUMIN 2.7 g/dL (3.4-5.0); ALKALINE PHOSPHATASE 286 Units/L (46-116); ASPARTATE AMINO TRANSFERASE 22 Units/L (15-37); BLOOD UREA NITROGEN 3 mg/dL (7-18); CALCIUM 8.3 mg/dL (8.5-10.1); CARBON DIOXIDE 28.7 mmol/L (21-32); CHLORIDE 108 mmol/L (98-107); COR CA(FOR HYPOALB) 9.3 mg/dL (8.5-10.1); CREATININE 0.48 mg/dL (0.55-1.02); SODIUM 145 mmol/L (136-145); TOTAL PROTEIN 6.5 g/dL (6.4-8.2); eGFR NON BLACK RACES > 60 (>60)
[2022-02-20] MEDS: PULMICORT NEB TX 0.5 MG NEB SCH ×2 (08:02→21:00)
[2022-02-20 08:03] LABS: PLATELET MORPHOLOGY COMMENT NORMAL (NORMAL); STOMATOCYTES SLIGHT
[2022-02-20] MEDS: FORTAZ or TAZICEF VIAL INJ 2 G in NS 100 ML IV 100 ML IV SCH ×2 (09:54→22:32)
[2022-02-20] MEDS: SENOKOT PO SCH ×2 (09:54→22:31)
[2022-02-20] MEDS: NEURONTIN CAP 400 MG PO SCH ×2 (09:54→22:30)
[2022-02-20] MEDS: ARICEPT TAB 10 MG PO SCH (09:54)
[2022-02-20] MEDS: COLACE CAP 100 MG PO SCH ×2 (09:54→22:30)
[2022-02-20] MEDS: VITAMIN C PO SCH ×2 (09:55→22:31)
[2022-02-20] MEDS: PREVACID PO SCH (09:55)
[2022-02-20] MEDS: NAMENDA TAB 10 MG PO SCH ×2 (09:55→22:31)
[2022-02-20] MEDS: FERROUS GLUCONATE PO SCH (09:55)
[2022-02-20] MEDS: COZAAR PO SCH (09:55)
[2022-02-20] MEDS: DEPAKOTE D.R. TAB PO SCH ×2 (09:55→22:31)
[2022-02-20] MEDS: TAB-A-VITE PO SCH (09:55)
[2022-02-20] MEDS: LOVENOX INJ 40 MG SYR SC SCH (09:56)
[2022-02-20] MEDS: GLUCOTROL PO SCH (09:59)
[2022-02-20] MEDS: ARTIFICIAL TEARS DROPS OP SCH ×2 (10:00→22:34)
--- NOTE | 2022-02-20 10:22 | RAD ---
HISTORYShortness of breathSTUDYChest AP [id number]/20/2022FINDINGSPati ent is rotated to the right. The heart is enlarged. The interstitium has become prominent in there is a question of some Patrick's B lines suggestive of mild interstitial edema. No alveolar edema, alveolar infiltrates, areas of consolidation, or pleural effusions identified. Bony thorax is unremarkable.IMPRESSIONCardiomegaly with interval development of mild congestive heart failure since the prior examinationElectronically signed by: MAURISIO ENRIQUE (Feb 20, 2022 10:19:59)
--- NOTE | 2022-02-20 10:24 | PCM.PROG ---
Progress Note - Progress Note for Day of Date of Exam: 02/19/22 - Subjective Subjective: IS CURRENTLY INPATIENT STATUS FOR TREATMENT OF SEPSIS DUE TO URINARY TRACT INFECTION AND PNEUMONIA. TODAY, SHE IS ALERT, LYING IN BED ON MORNING ROUNDS. SHE RESPONDS TO VERBAL STIMUI, BUT CONTINUES TO BE DISORIENTED. SHE DOES FOLLOW SIMPLE COMMANDS. ON EXAMINATION, HEART IS REGULAR IN RATE AND RHYTHM. BILATERAL LUNGS ARE NOTED WITH DIMINISHED LUNG SOUNDS THROUGHOUT. ABDOMEN IS ROUND, SOFT, AND NOTED WITH DIFFUSE TENDERNESS. NORMAL BOWEL SOUNDS NOTED IN ALL QUADRANTS. NO UPPER OR LOWER EXTREMITY EDEMA NOTED. HER VITALS THIS MORNING ARE: 98.7-72-20-95%-123/58. LABS WERE OBTAINED. WBC 7.9, RBC 3.93, HGB 12.1, HCT 36.6, PLT COUNT 149, SODIUM 145, POTASSIUM 3.9, CHLORIDE 111, BUN 4, CREATININE 0.51, GLUCOSE 82, CALCIUM 8.2, TOTAL BILI 2.30, DIRECT BILI 1.30, AST 21, ALT 37, ALK PHOS 245, TOTAL PROTEIN 5.9, ALBUMIN 2.2. RESPIRATORY VIRAL PANEL IS PENDING. OUTPATIENT BLOOD CULTURES FROM 02/13/22 REVEALED KLEBSIELLA PNEUMONIAE AND E.COLI. A CHEST XRAY WAS OBTAINED THIS [facility] AND REVEALED: Mild cardiomegaly without congestive heart failure. Lungs mildly hyperinflated but free of acute infiltrates. SHE IS CURRENTLY RECEIVING D51/2 NS AT 125 ML/HR, FORTAZ 2G IV Q12H, DUONEBS TID, PULMICORT NEBS BID, TORADOL 15MG IV Q8H PRN, THE POTASSIUM AND MAGNESIUM PROTOCOLS, AND HER HOME MEDICATIONS WERE RESUMED. WE WILL CONTINUE WITH CURRENT PLAN OF CARE TODAY. WE CONSULTED DUE TO PERSISTENTLY ELEVATED BILIRUBIN. HE PLANS TO OBTAIN A MRCP TODAY. WE ARE IN AGREEMENT WITH PLANS. OTHERWISE, WE WILL FOLLOW-UP WITH AM LABS AND CONTINUE TO MONITOR. TIME SPENT ON CLINICAL ASSESSMENT, REVIWING LABS AND IMAGING, DECISION MAKING, AND DOCUMENTATION GREATER THAN 45 MINUTES. - Past Medical Family Social History Past Med/Fam/Surg Hx: No changes since H&P Allergies: Allergies niacin Allergy (Mild, Verified 06/26/20 17:13) azithromycin Allergy (Verified 11/13/17 23:23) ciprofloxacin Allergy (Verified 11/13/17 23:23) codeine Allergy (Verified 11/13/17 23:23) Corticosteroids (Glucocorticoids) Allergy (Verified 11/13/17 23:23) levofloxacin Allergy (Verified 11/13/17 23:23) morphine Allergy (Verified 11/13/17 23:23) promethazine Allergy (Verified 11/13/17 23:23) topiramate Allergy (Verified 11/13/17 23:23) - Review of Systems ROS: No change since H&P - Vital Signs and I&O's Vital Signs: Temperature 97.6 F Pulse Rate [Right Radial] 82 Pulse Rate 82 Respiratory Rate 24 Blood Pressure [Left Arm] 131/63 Blood Pressure [Right Arm] 124/59 Blood Pressure 97/46 O2 Sat by Pulse Oximetry 95 Intake and Output: Intake & Output 02/17/22 02/18/22 02/19/22 02/20/22 11:59 11:59 11:59 11:59 Intake Total 2585 / 2585 3580 / 3580 2182 / 2182 4172 / 4172 Balance 2585 / 2585 3580 / 3580 2182 / 2182 4172 / 4172 - Physical Exam Oriented: Not Oriented Eyes: Normal. negative: Blurred Vision, Diplopia, Discharge, Pain, Redness, Photophobia, Other Ear: Normal Nose: Normal Throat: Normal Respiratory: Generalized, Diminished Cardiovascular: Normal. negative: Tachycardia, Bradycardia, Irregular, S3, S4, Systolic, Diastolic, Murmur, Edema, Other : Normal Auscultation: Bowel Sounds: Normal Palpation: Normal Tenderness: Diffuse, Mild Skin: Normal. negative: Decreased Turgur, Rash, Papular, Macular, Maculopapular, Vesicular, Pustular, Petechial, Red, Tender, Hot, Diaphoresis, Wound, Bruising, Ecchymosis, Other Musculoskeletal: Normal. negative: Right, Left, Shoulder, Clavicle, Arm, Elbow, Forearm, Wrist, Hand, Hip, Thigh, Knee, Leg, Ankle, Foot, Back:Thoracic, Back:Lumbar, Back:Midline, Back:Paraspinous, Pelvis, Swelling, Tender, Deformity, Pulse Deficit, Motor Deficit, Sensory Deficit, Instability, Crepitance Psychiatric: Normal. negative: Anxiety, Depression, Agitation, Other Mood Description: Calm. negative: Angry, Apathetic, Depressed, Fearful, Flat, Happy, Hostile, Sad, Suspicious, Withdrawn, Anxious, Appropriate, Labile Affect: negative: Angry, Anxious, Depressed, Flat, Hysterical, Quiet, Violent, Normal Speech Pattern: Inappropriate - Laboratory and Diagnostics Result Diagrams: 02/20/22 06:10 02/20/22 06:10 Labs: 02/16/22 22:26 Blood Blood Culture - Final 02/16/22 22:29 Blood Blood Culture - Preliminary 02/14/22 15:26 Urine,Catheterized Urine Culture - Final Laboratory WBC 8.1 X10^3/uL (3.6-10.0) 02/20/22 06:10 RBC 4.01 X10^6/uL (3.5-5.4) 02/20/22 06:10 Hgb 12.5 g/dL (12.0-16.0) 02/20/22 06:10 Hct 37.7 % (36.0-47.0) 02/20/22 06:10 MCV 93.9 fL (80.0-100.0) 02/20/22 06:10 MCH 31.1 pg (27.0-34.0) 02/20/22 06:10 MCHC 33.1 g/dL (33.0-35.0) 02/20/22 06:10 RDW 13.7 % (11.6-16.5) 02/20/22 06:10 Plt Count 196 X10^3/uL (150.0-450.0) 02/20/22 06:10 Plt Count Comment Adequate (ADEQUATE) 02/20/22 06:10 MPV 7.9 fL (7.4-11.0) 02/20/22 06:10 Neut % (Auto) 67.4 % (42.0-75.0) 02/20/22 06:10 Lymph % (Auto) 19.7 % (21.0-51.0) L 02/20/22 06:10 [place] % (Auto) 10.3 % (0.0-13.0) 02/20/22 06:10 Eos % (Auto) 2.0 % (0.9-2.9) 02/20/22 06:10 Baso % (Auto) 0.6 % (0.2-1.0) 02/20/22 06:10 Neut # (Auto) 5.5 x10^3/uL (2.2-4.8) H 02/20/22 06:10 Lymph # (Auto) 1.6 X10^3/uL (1.3-2.9) 02/20/22 06:10 [place] # (Auto) 0.8 x10^3/uL (0.3-0.8) 02/20/22 06:10 Eos # (Auto) 0.2 x10^3/uL (0.0-0.2) 02/20/22 06:10 Baso # (Auto) 0.0 X10^3/uL (0.0-0.1) 02/20/22 06:10 Absolute Nucleated RBC 0.1 /100WBC 02/20/22 06:10 Total Counted 100 02/20/22 06:10 Neutrophils % (Manual) 65 % (39-76) 02/20/22 06:10 Lymphocytes % (Manual) 27 % (13-43) 02/20/22 06:10 Monocytes % (Manual) 7 % (4-9) 02/20/22 06:10 Eosinophils % (Manual) 1 % (0-6) 02/20/22 06:10 Plt Morphology Comment Normal (NORMAL) 02/20/22 06:10 RBC Morphology Abnormal (NORMAL) A 02/20/22 06:10 Stomatocytes Slight A 02/20/22 06:10 Sodium 145 mmol/L (136-145) 02/20/22 06:10 Corrected Sodium TNP 02/20/22 06:10 Potassium 3.6 mmol/L (3.5-5.1) 02/20/22 06:10 Chloride 108 mmol/L (98-107) H 02/20/22 06:10 Carbon Dioxide 28.7 mmol/L (21-32) 02/20/22 06:10 BUN 3 mg/dL (7-18) L 02/20/22 06:10 Creatinine 0.48 mg/dL (0.55-1.02) L 02/20/22 06:10 Est GFR (MDRD) Af Amer > 60 (>60) 02/20/22 06:10 Est GFR (MDRD) Non-Af > 60 (>60) 02/20/22 06:10 Glucose 105 mg/dL (65-99) H 02/20/22 06:10 POC Glucose (mg/dL) 120 mg/dL (65-99) H 02/20/22 05:28 Lactic Acid 0.6 mmol/L (0.4-2.0) 02/16/22 22:26 Calcium 8.3 mg/dL (8.5-10.1) L 02/20/22 06:10 Corrected Calcium 9.3 mg/dL (8.5-10.1) 02/20/22 06:10 Phosphorus 3.8 mg/dL (2.6-4.7) 02/14/22 20:25 Magnesium 2.3 mg/dL (2.0-2.9) 02/17/22 05:35 Iron 40 ug/dL (50-175) L 02/18/22 06:15 Transferrin 112 mg/dL (202-364) L 02/18/22 06:15 Ferritin 439 ng/mL (8-252) H 02/18/22 06:15 Total Bilirubin 2.10 mg/dL (0.2-1.0) H 02/20/22 06:10 Direct Bilirubin 1.30 mg/dL (0-0.2) H 02/19/22 06:03 AST 22 Units/L (15-37) 02/20/22 06:10 ALT 33 Units/L (12-78) 02/20/22 06:10 Alkaline Phosphatase 286 Units/L (46-116) H 02/20/22 06:10 Troponin I High Sens 30.4 ng/L (4.0-60.0) 02/15/22 08:46 Total Protein 6.5 g/dL (6.4-8.2) 02/20/22 06:10 Albumin 2.7 g/dL (3.4-5.0) L 02/20/22 06:10 Globulin 3.8 g/dL (2.5-4.5) 02/20/22 06:10 Albumin/Globulin Ratio 0.7 Ratio (1.1-2.1) L 02/20/22 06:10 Lipase 19 Units/L (73-393) L 02/14/22 20:25 Specimen Type Catherized urine 02/14/22 15:26 Urine Color Yellow (YELLOW) 02/14/22 15:26 Urine Appearance Cloudy (CLEAR) 02/14/22 15:26 Urine pH 5.0 (5.0 - 8.0) 02/14/22 15: Ur Specific [place] 1.015 (1.000-1.030) 02/14/22 15: Urine Protein 2+ (NEGATIVE) 02/14/22 15: Urine Glucose (UA) 4+ (NEGATIVE) 02/14/22 15: Urine Ketones 1+ (NEGATIVE) 02/14/22 15: Urine Blood 4+ (NEGATIVE) 02/14/22 15: Urine Nitrite Positive (NEGATIVE) 02/14/22 15: Urine Bilirubin 3+ (NEGATIVE) 02/14/22 15: Urine Urobilinogen 2+ (NORMAL) 02/14/22 15: Ur Leukocyte Esterase 3+ (NEGATIVE) 02/14/22 15: Urine RBC Tntc /HPF (0-3) A 02/14/22 15: Urine WBC Tntc /HPF (0-5) A 02/14/22 15: Ur Squamous Epith Cells Rare /HPF (NEGATIVE) 02/14/22 15: Urine Bacteria 1+ /HPF (NEGATIVE) 02/14/22 15: Ur Culture Indicated? Yes/culture set up 02/14/22 15:26 SARS-CoV-2 (PCR) Negative (NEGATIVE) 02/14/22 15:50 Influenza Type A (PCR) Negative (NEGATIVE) 02/14/22 15:50 Influenza Type B (PCR) Negative (NEGATIVE) 02/14/22 15:50 RSV (PCR) Negative (NEGATIVE) 02/14/22 15:50 Resp Viral Panel (PCR) See scanned report 02/14/22 22:40 - Plan (1) Sepsis due to urinary tract infection Status: Acute Plan: D51/2 NS AT 125 ML/HR, FORTAZ 2G IV Q12H, DUONEBS TID, PULMICORT NEBS BID, TORADOL 15MG IV Q8H PRN, AND THE POTASSIUM AND MAGNESIUM PROTOCOLS. (2) Hyperbilirubinemia Status: Acute Plan: OBTAIN MRCP TODAY (3) Hypokalemia Status: Acute (4) Dementia Status: Chronic Qualifiers: Dementia type: unspecified type Qualified Code(s): F03.90 - Unspecified dementia, unspecified severity, without behavioral disturbance, psychotic disturbance, mood disturbance, and anxiety (5) COPD (chronic obstructive pulmonary disease) Status: Chronic Qualifiers: COPD type: unspecified COPD Qualified Code(s): J44.9 - Chronic obstructive pulmonary disease, unspecified (6) Diabetes mellitus Status: Chronic Qualifiers: Diabetes mellitus type: type 2 Diabetes mellitus watermaster insulin use: without intermediate use Diabetes mellitus complication status: without complication Qualified Code(s): E11.9 - Type 2 diabetes mellitus without complications (7) Hypertension Status: Chronic Qualifiers: Hypertension type: primary hypertension Qualified Code(s): I10 - Essential (primary) hypertension
[2022-02-20] MEDS ORDERED: NS 1,000 ML IV 1,000 ML IV SCH (20:00)
[2022-02-20] MEDS: ZOCOR TAB 20 MG PO SCH (22:30)
[2022-02-20] MEDS: PEPCID TAB 40 MG PO SCH (22:32)
[2022-02-20] MEDS: SNACK - Diabetic Appropriate PO SCH (22:35)
[2022-02-20] MEDS: ALBUMIN HUMAN 25%- 100 ML 100 ML IV SCH (22:35)
[2022-02-21] MEDS: DUONEB 0.5 MG/3 MG (3 mL) NEB SCH (05:40)
[2022-02-21 06:16] LABS: BASOPHILS % (AUTO) 0.4 % (0.2-1.0); EOSINOPHILS # (AUTO) 0.1 x10^3/uL (0.0-0.2); EOSINOPHILS % (AUTO) 1.5 % (0.9-2.9); HEMATOCRIT 36.8 % (36.0-47.0); HEMOGLOBIN 12.1 g/dL (12.0-16.0); LYMPHOCYTES # (AUTO) 1.6 X10^3/uL (1.3-2.9); LYMPHOCYTES % (AUTO) 20.1 % (21.0-51.0); MEAN CORPUSCULAR HGB CONC 32.9 g/dL (33.0-35.0); MEAN CORPUSCULAR VOLUME 94.3 fL (80.0-100.0); MEAN PLATELET VOLUME 8.1 fL (7.4-11.0); MONOCYTES # (AUTO) 0.7 x10^3/uL (0.3-0.8); MONOCYTES % (AUTO) 8.9 % (0.0-13.0); NEUTROPHILS # (AUTO) 5.6 x10^3/uL (2.2-4.8); NEUTROPHILS % (AUTO) 69.1 % (42.0-75.0); RED BLOOD COUNT 3.91 X10^6/uL (3.5-5.4); RED CELL DISTRIBUTION WIDTH 14.2 % (11.6-16.5); WHITE BLOOD COUNT 8.2 X10^3/uL (3.6-10.0)
[2022-02-21 06:38] LABS: ALANINE AMINOTRANSFERASE 32 Units/L (12-78); ALBUMIN 2.9 g/dL (3.4-5.0); ALKALINE PHOSPHATASE 302 Units/L (46-116); ASPARTATE AMINO TRANSFERASE 30 Units/L (15-37); BLOOD UREA NITROGEN 3 mg/dL (7-18); CALCIUM 8.8 mg/dL (8.5-10.1); CARBON DIOXIDE 30.8 mmol/L (21-32); CHLORIDE 107 mmol/L (98-107); COR CA(FOR HYPOALB) 9.7 mg/dL (8.5-10.1); COR NA(FOR HYPERGLY) 145 mmol/L (136-145); CREATININE 0.42 mg/dL (0.55-1.02); SODIUM 145 mmol/L (136-145); TOTAL PROTEIN 6.6 g/dL (6.4-8.2); eGFR NON BLACK RACES > 60 (>60)
[2022-02-21 07:12] LABS: BAND NEUTROPHILS % 1 % (0-10); PLATELET MORPHOLOGY COMMENT NORMAL (NORMAL); STOMATOCYTES SLIGHT
[2022-02-21 07:19] LABS: HEPATITIS B SURFACE ANTIGEN Negative (Negative)
[2022-02-21 07:21] LABS: ANTI-NUCLEAR ANTIBODY TEST None Detected (None Detected)
[2022-02-21] MEDS ORDERED: LASIX IVP ONE (08:00)
[2022-02-21] MEDS: PULMICORT NEB TX 0.5 MG NEB SCH (08:31)
--- NOTE | 2022-02-21 08:44 | RAD ---
HISTORYSEPSIS D/T UTI, SOB Relevant Clinical InformationSTUDYCHEST, 1 [id number]/2022FINDINGSTrachea is midline. Mild cardiomegaly. No evidence of pneumothorax or pleural effusions. There is unchanged patchy left lower lobe radiopacity. There has been interval improved of previously seen mild interstitial pulmonary edema.IMPRESSIONPersistent left lower lower and left mid radiopacity could represent early pneumonia.Electronically signed by: Magdalena Nicholson (Feb 21, 2022 08:43:09)
[2022-02-21] MEDS: FORTAZ or TAZICEF VIAL INJ 2 G in NS 100 ML IV 100 ML IV SCH (09:54)
[2022-02-21] MEDS: NEURONTIN CAP 400 MG PO SCH (09:55)
[2022-02-21] MEDS: FERROUS GLUCONATE PO SCH (09:55)
[2022-02-21] MEDS: VITAMIN C PO SCH (09:56)
[2022-02-21] MEDS: TAB-A-VITE PO SCH (09:56)
[2022-02-21] MEDS: PREVACID PO SCH (09:56)
[2022-02-21] MEDS: COLACE CAP 100 MG PO SCH (09:56)
[2022-02-21] MEDS: DEPAKOTE D.R. TAB PO SCH (09:56)
[2022-02-21] MEDS: NAMENDA TAB 10 MG PO SCH (09:56)
[2022-02-21] MEDS: SENOKOT PO SCH (09:56)
[2022-02-21] MEDS: ARICEPT TAB 10 MG PO SCH (09:57)
[2022-02-21] MEDS: GLUCOTROL PO SCH (09:57)
[2022-02-21] MEDS: COZAAR PO SCH (09:58)
[2022-02-21] MEDS: ARTIFICIAL TEARS DROPS OP SCH (10:00)
[2022-02-21] MEDS: LOVENOX INJ 40 MG SYR SC SCH (10:01)
[2022-02-21 13:21] VITALS: BP 129/73
== END 2022-02-21 14:22 | DRG 871 ==
LOC: ER 14:56 → MED/SURG 18:06
PROVIDERS: ADMIT Internal Medicine; ATTEND Internal Medicine
DX: N39.0 Urinary tract infection, site not specified; R93.5 Abnormal findings on diagnostic imaging of other abdominal regions, including retroperitoneum; K21.9 Gastro-esophageal reflux disease without esophagitis; R26.89 Other abnormalities of gait and mobility; I50.9 Heart failure, unspecified; F03.90 Unspecified dementia, unspecified severity, without behavioral disturbance, psychotic disturbance, mood disturbance, and anxiety; I25.10 Atherosclerotic heart disease of native coronary artery without angina pectoris; E78.5 Hyperlipidemia, unspecified; M19.90 Unspecified osteoarthritis, unspecified site; F32.A Depression, unspecified; R63.39 Other feeding difficulties; E80.6 Other disorders of bilirubin metabolism; E87.6 Hypokalemia; Z86.73 Personal history of transient ischemic attack (TIA), and cerebral infarction without residual deficits; E11.9 Type 2 diabetes mellitus without complications; R07.9 Chest pain, unspecified; D64.9 Anemia, unspecified; Z20.822 Contact with and (suspected) exposure to COVID-19; A41.89 Other specified sepsis; A41.51 Sepsis due to Escherichia coli [E. coli]; J44.9 Chronic obstructive pulmonary disease, unspecified; F20.9 Schizophrenia, unspecified; I11.0 Hypertensive heart disease with heart failure; J18.9 Pneumonia, unspecified organism; F41.9 Anxiety disorder, unspecified

== ENCOUNTER 2023-06-29 21:19 | Inpatient (IN) ==
--- NOTE | 2023-06-29 21:24 | DR.SOBA ---
HPI Time Seen Time Seen by Provider: 06/29/23 21:24 HPI Comment HPI Comment: 78 y/o nhp sent over after sats started dropping into the 80s despite oxygen; she wakes only to sternal rub and mumbles so that speech is not understandable but nh reports she's usually talktative and jokes around; she tested negative for covid at [facility]; no fever, chills, abd pain, n/v/d. BC x 2 with one set positve for gpc in clusters; final results pending H PMH Past Medical History: Anemia, Angina, CHF, COPD, Diabetes, GERD and Schi zophrenia Past Surgical History: Yes (unknown) Surgical History: Cholecystectomy, Hysterectomy and Ortho Surgery Family History Family Medical History: Diabetes Mellitus, Cancer, [place], Coronary Artery Disease, Heart Failure, Sudden Cardiac and Hypertension Social History Do you use any recreational Drugs:: No ROS Review of Systems Unable to Obtain Due To: Altered mental status PE Vital Signs Vitals: Vital Signs Temperature 98.7 F Temperature 100.1 F Pulse Rate 69 Pulse Rate 69 Pulse Rate 74 Pulse Rate 76 Pulse Rate 72 Pulse Rate 72 Pulse Rate 75 Pulse Rate 78 Pulse Rate 79 Pulse Rate 80 Pulse Rate 87 Pulse Rate 82 Pulse Rate 85 Pulse Rate 86 Pulse Rate 88 Pulse Rate 89 Pulse Rate 97 Respiratory Rate 17 Respiratory Rate 17 Respiratory Rate 20 Respiratory Rate 20 Respiratory Rate 18 Respiratory Rate 19 Respiratory Rate 20 Respiratory Rate 20 Respiratory Rate 20 Respiratory Rate 22 Respiratory Rate 24 Respiratory Rate 20 Respiratory Rate 24 Blood Pressure 118/65 Blood Pressure 115/58 Blood Pressure 115/55 Blood Pressure 131/61 Blood Pressure 141/63 Blood Pressure 142/63 Blood Pressure 137/65 Blood Pressure 137/65 Blood Pressure 145/86 O2 Sat by Pulse Oximetry 91 O2 Sat by Pulse Oximetry 91 O2 Sat by Pulse Oximetry 93 O2 Sat by Pulse Oximetry 97 O2 Sat by Pulse Oximetry 93 O2 Sat by Pulse Oximetry 92 O2 Sat by Pulse Oximetry 92 O2 Sat by Pulse Oximetry 91 O2 Sat by Pulse Oximetry 89 O2 Sat by Pulse Oximetry 90 O2 Sat by Pulse Oximetry 84 O2 Sat by Pulse Oximetry 90 O2 Sat by Pulse Oximetry 88 O2 Sat by Pulse Oximetry 85 O2 Sat by Pulse Oximetry 82 O2 Sat by Pulse Oximetry 85 O2 Sat by Pulse Oximetry 86 General Limitations: No Limitations General Appearance: Lethargic Head Head Exam: Normal Inspection Eyes Eye exam: Normal Appearance ENT ENT Exam: Normal Exam Neck Neck Exam: Normal Inspection Chest Chest Inspection: Normal Inspection Respiratory Respiratory Exam: Normal Lung Sounds Bilat Respiratory Exam: Bilateral: Clear to Auscultation Cardiovascular Cardiovascular Exam: Regular Rate and Normal Rhythm Abdominal Exam Abdominal Exam: Normal Inspection, Normal Bowel Sounds and Soft Extremities Extremities Exam: Normal Inspection Back Back Exam: Normal Inspection Neurologic Neurological Exam: Other (wakes to sternal rub) Psychiatric Psychiatric Exam: Other (somnolent) Skin Skin Exam: Warm, Dry, Intact and Normal Color ROR Labs Reviewed Laboratory Results Reviewed?: Yes 06/29/23 21:40 06/29/23 21:40 Laboratory: WBC 12.7 X10^3/uL (3.6-10.0) H 06/29/23 21:40 RBC 5.22 X10^6/uL (3.5-5.4) 06/29/23 21:40 Hgb 16.2 g/dL (12.0-16.0) H 06/29/23 21:40 Hct 49.9 % (36.0-47.0) H 06/29/23 21:40 MCV 95.6 fL (80.0-100.0) 06/29/23 21:40 MCH 31.1 pg (27.0-34.0) 06/29/23 21:40 MCHC 32.5 g/dL (33.0-35.0) L 06/29/23 21:40 RDW 13.2 % (11.6-16.5) 06/29/23 21:40 Plt Count 224 X10^3/uL (150.0-450.0) 06/29/23 21:40 MPV 8.5 fL (7.4-11.0) 06/29/23 21:40 Neut % (Auto) 69.3 % (42.0-75.0) 06/29/23 21:40 Lymph % (Auto) 22.9 % (21.0-51.0) 06/29/23 21:40 [place] % (Auto) 7.3 % (0.0-13.0) 06/29/23 21:40 Eos % (Auto) 0.1 % (0.9-2.9) L 06/29/23 21:40 Baso % (Auto) 0.4 % (0.2-1.0) 06/29/23 21:40 Neut # (Auto) 8.8 x10^3/uL (2.2-4.8) H 06/29/23 21:40 Lymph # (Auto) 2.9 X10^3/uL (1.3-2.9) 06/29/23 21:40 [place] # (Auto) 0.9 x10^3/uL (0.3-0.8) H 06/29/23 21:40 Eos # (Auto) 0.0 x10^3/uL (0.0-0.2) 06/29/23 21:40 Baso # (Auto) 0.1 X10^3/uL (0.0-0.1) 06/29/23 21:40 Absolute Nucleated RBC 0.1 /100WBC 06/29/23 21:40 Sample Site Rb 06/29/23 21:55 ABG pH 7.350 (7.35-7.45) 06/29/23 21:55 ABG pCO2 59.0 mmHg (35.0-45.0) H* 06/29/23 21:55 ABG pO2 39.0 mmHg (80.0-100.0) L* 06/29/23 21:55 ABG HCO3 32.6 mmol/L (22-26) H* 06/29/23 21:55 ABG O2 Saturation 70.0 % (90-100) L* 06/29/23 21:55 ABG Base Excess 5.4 mmol/L (-2.0-2.0) H 06/29/23 21:55 Richard Test N/a 06/29/23 21:55 A-a Gradient 37.0 mmHg 06/29/23 21:55 FiO2 21.0 06/29/23 21:55 Blood Gas Comments Joelle well ae 06/29/23 21:55 Sodium 151 mmol/L (136-145) H* 06/29/23 21:40 Corrected Sodium 154 mmol/L (136-145) H 06/29/23 21:40 Potassium 4.2 mmol/L (3.5-5.1) 06/29/23 21:40 Chloride 112 mmol/L (98-107) H 06/29/23 21:40 Carbon Dioxide 29.9 mmol/L (21-32) 06/29/23 21:40 BUN 32 mg/dL (7-18) H 06/29/23 21:40 Creatinine 1.11 mg/dL (0.55-1.02) H 06/29/23 21:40 Est GFR (MDRD) Af Amer > 60 (>60) 06/29/23 21:40 Est GFR (MDRD) Non-Af 50 (>60) L 06/29/23 21:40 Glucose 225 mg/dL (65-99) H 06/29/23 21:40 Lactic Acid 1.4 mmol/L (0.4-2.0) 06/29/23 21:40 Calcium 9.1 mg/dL (8.5-10.1) 06/29/23 21:40 Corrected Calcium 10.1 mg/dL (8.5-10.1) 06/29/23 21:40 Total Bilirubin 0.30 mg/dL (0.2-1.0) 06/29/23 21:40 AST 33 Units/L (15-37) 06/29/23 21:40 ALT 38 Units/L (12-78) 06/29/23 21:40 Alkaline Phosphatase 152 Units/L (46-116) H 06/29/23 21:40 Creatine Kinase 37 Units/L (26-192) 06/29/23 21:40 Troponin I High Sens 14.2 ng/L (4.0-60.0) 06/29/23 21:40 Total Protein 7.7 g/dL (6.4-8.2) 06/29/23 21:40 Albumin 2.7 g/dL (3.4-5.0) L 06/29/23 21:40 Globulin 5.0 g/dL (2.5-4.5) H 06/29/23 21:40 Albumin/Globulin Ratio 0.5 Ratio (1.1-2.1) L 06/29/23 21:40 Specimen Type Clean catch urine 06/29/23 23:18 Urine Color Pale yellow (YELLOW) 06/29/23 23:18 Urine Appearance Cloudy (CLEAR) 06/29/23 23:18 Urine pH 6.0 (5.0 - 8.0) 06/29/23 23:18 Ur Specific [place] 1.010 (1.000-1.030) 06/29/23 23:18 Urine Protein 2+ (NEGATIVE) 06/29/23 23:18 Urine Glucose (UA) 4+ (NEGATIVE) 06/29/23 23:18 Urine Ketones Negative (NEGATIVE) 06/29/23 23:18 Urine Blood 5+ (NEGATIVE) 06/29/23 23:18 Urine Nitrite Negative (NEGATIVE) 06/29/23 23:18 Urine Bilirubin Negative (NEGATIVE) 06/29/23 23:18 Urine Urobilinogen Normal (NORMAL) 06/29/23 23:18 Ur Leukocyte Esterase 3+ (NEGATIVE) 06/29/23 23:18 Urine RBC 5-10 /HPF (0-3) A 06/29/23 23:18 Urine WBC Tntc /HPF (0-5) A 06/29/23 23:18 Ur Squamous Epith Cells Rare /HPF (NEGATIVE) 06/29/23 23:18 Amorphous Sediment 1+ /HPF (NEGATIVE) 06/29/23 23:18 Urine Bacteria Trace /HPF (NEGATIVE) 06/29/23 23:18 Ur Culture Indicated? Yes/culture set up 06/29/23 23:18 SARS-CoV-2 (PCR) Negative (NEGATIVE) 06/29/23 21:31 Influenza Type A (PCR) Negative (NEGATIVE) 06/29/23 21:31 Influenza Type B (PCR) Negative (NEGATIVE) 06/29/23 21:31 RSV (PCR) Negative (NEGATIVE) 06/29/23 21:31 Other Results Comments: 78 y/o nhp with ams and sats into the 80's despite oxygen; abg with oxygen 39, normal ph and CO2 of 59 and hypernatremia, lll infilatrate and cystitis admitted for iv therapy. BC repeated as only one bottle positive; final c/s pending. XRAY XRAY Interpreted by: Radiologist X-ray Results: ct chest w/o: Left lower lobe subsegmental atelectasis and/or infiltrate. pcxr: negative Opioid Opioid Risk Tool Age (Michael box if 16-45): No History of Preadolescent Sexual Abuse: No Total: 0 Total Score Risk Category: Low Risk Copyright: Jeremy WESTON predicting aberrant behaviors Discharge Plan Diagnosis Discharge Problem: Hypoxia, Cystitis, Hypernatremia AMS (altered mental status) Qualifiers: Altered mental status type: somnolence Qualified Code(s): R40.0 - Somnolence LLL pneumonia Qualifiers: Pneumonia type: due to unspecified organism Qualified Code(s): J18.9 - Pneum onia, unspecified organism Acute renal failure (ARF) Qualifiers: Acute renal failure type: unspecified Qualified Code(s): N17.9 - Acute kidney failure, unspecified Discharge Plan Patient Disposition: ADMITTED INPATIENT Condition: Stable Prescriptions: No Action simvastatin 20 mg tablet 20 mg PO HS losartan 25 mg Tablet 25 mg PO DAILY ferrous fumarate [Ferrocite] 324 mg (106 mg iron) Tablet 324 mg PO DAILY Jardiance 10 mg tablet 10 mg PO DAILY famotidine [Pepcid] 40 mg Tablet 40 mg PO HS sennosides-docusate sodium 8.6-50 mg Tablet 1 tab PO BID gabapentin 400 mg capsule 400 mg PO BID Novolin R Regular U100 Insulin 100 unit/mL Solution 1 unit subcut DAILY Rx Instructions: sliding scale Refresh Relieva 0.5-0.9 % Drops 1 drp OPHTHALMIC (EYE) BID Rx Instructions: 1 drop in both eyes two times a day glipizide 10 mg tablet 10 mg PO DAILY memantine 10 mg tablet 10 mg PO BID donepezil 10 mg tablet 10 mg PO QDAY methenamine hippurate 1 gram Tablet 1 g PO BID ipratropium-albuterol [ipratropium-albuterol] 0.5 mg-3 mg(2.5 mg base)/3 mL solution for nebulization 1 neb NEB TID Qty: 50 1RF budesonide 0.5 mg/2 mL suspension for nebulization 1 ea NEB BIDRESP Qty: 50 1RF multivitamin Tablet 1 tab PO DAILY divalproex [Depakote] 250 mg Tablet,Delayed Release (Dr/Ec) 250 mg PO BID ascorbic acid (vitamin C) [Vitamin C] 500 mg Tablet 500 mg PO BID Health Concerns: Post Hospitalization: new medications and changes needed to prevent readmission or further decline. Pt educated and given instructions on all concerns. Plan of Treatment: Continue with present treatment and follow up plan. Pt is to keep follow up appointment as instructed and take medications as ordered. Follow ups/Referrals Follow ups/Referrals: Roby Meeks [Primary Care Provider] - 3 days
--- NOTE | 2023-06-29 21:44 | EKG ---
Test Reason : hypoxia Blood Pressure : */* mmHG Vent. Rate : 88 BPM Atrial Rate : 88 BPM P-R Int : 152 ms QRS Dur : 88 ms QT Int : 370 ms P-R-T Axes : 65 -6 73 degrees QTc Int : 447 ms Normal sinus rhythm Normal ECG When compared with ECG of 14-FEB-2022 00:02, No significant change was found Confirmed by Jake Rashid MD ([id number]) on 06/30/2023 7:35:28 AM Referred By: Confirmed By: Jake Rashid MD
[2023-06-29 21:51] LABS: MEAN CORPUSCULAR HEMOGLOBIN 31.1 pg (27.0-34.0); PLATELET COUNT 224 X10^3/uL (150.0-450.0)
[2023-06-29 21:54] LABS: BASOPHILS # (AUTO) 0.1 X10^3/uL (0.0-0.1); BASOPHILS % (AUTO) 0.4 % (0.2-1.0); EOSINOPHILS % (AUTO) 0.1 % (0.9-2.9); HEMATOCRIT 49.9 % (36.0-47.0); HEMOGLOBIN 16.2 g/dL (12.0-16.0); LYMPHOCYTES # (AUTO) 2.9 X10^3/uL (1.3-2.9); LYMPHOCYTES % (AUTO) 22.9 % (21.0-51.0); MEAN CORPUSCULAR HGB CONC 32.5 g/dL (33.0-35.0); MEAN CORPUSCULAR VOLUME 95.6 fL (80.0-100.0); MEAN PLATELET VOLUME 8.5 fL (7.4-11.0); MONOCYTES # (AUTO) 0.9 x10^3/uL (0.3-0.8); MONOCYTES % (AUTO) 7.3 % (0.0-13.0); NEUTROPHILS # (AUTO) 8.8 x10^3/uL (2.2-4.8); NEUTROPHILS % (AUTO) 69.3 % (42.0-75.0); RED BLOOD COUNT 5.22 X10^6/uL (3.5-5.4); RED CELL DISTRIBUTION WIDTH 13.2 % (11.6-16.5); WHITE BLOOD COUNT 12.7 X10^3/uL (3.6-10.0)
[2023-06-29 22:02] LABS: ABG BASE EXCESS 5.4 mmol/L (-2.0-2.0)
[2023-06-29 22:05] LABS: ABG HCO3 32.6 mmol/L (22-26)
[2023-06-29 22:06] LABS: ALANINE AMINOTRANSFERASE 38 Units/L (12-78); ALBUMIN 2.7 g/dL (3.4-5.0); ALKALINE PHOSPHATASE 152 Units/L (46-116); ASPARTATE AMINO TRANSFERASE 33 Units/L (15-37); BLOOD UREA NITROGEN 32 mg/dL (7-18); CALCIUM 9.1 mg/dL (8.5-10.1); CARBON DIOXIDE 29.9 mmol/L (21-32); CHLORIDE 112 mmol/L (98-107); COR CA(FOR HYPOALB) 10.1 mg/dL (8.5-10.1); COR NA(FOR HYPERGLY) 154 mmol/L (136-145); CREATINE KINASE 37 Units/L (26-192); CREATININE 1.11 mg/dL (0.55-1.02); GLUCOSE 225 mg/dL (65-99); POTASSIUM 4.2 mmol/L (3.5-5.1); TOTAL PROTEIN 7.7 g/dL (6.4-8.2); eGFR NON BLACK RACES 50 (>60)
[2023-06-29 22:13] LABS: SODIUM 151 mmol/L (136-145)
[2023-06-29] MEDS: NS 500 ML IV 500 ML IV ONE (22:23)
--- NOTE | 2023-06-29 22:30 | RAD ---
EXAM: CHEST, 1 VIEW HISTORY: Shortness of breath COMPARISON: June 10, 2022 TECHNIQUE: Chest radiographic imaging, AP portable projection, 1 image FINDINGS: No cardiomegaly. No focal airspace disease. No pleural effusion. No pneumothorax. No acute osseous abnormality. IMPRESSION: No imaging findings of acute cardiopulmonary disease or significant changes. THIS IS AN ELECTRONICALLY VERIFIED FINAL REPORT 06/29/2023 10:26 PM - Electronically signed by Nino Gilbert MD
[2023-06-29 23:32] LABS: BILIRUBIN,URINE NEGATIVE (NEGATIVE); BLOOD/HEMOGLOBIN,URINE 5+ (NEGATIVE); GLUCOSE, URINE 4+ (NEGATIVE); KETONES,URINE NEGATIVE (NEGATIVE); LEUKOCYTE ESTERASE ,URINE 3+ (NEGATIVE); NITRITES,URINE NEGATIVE (NEGATIVE); PROTEIN,URINE 2+ (NEGATIVE); UROBILINOGEN,URINE NORMAL (NORMAL)
[2023-06-29 23:41] LABS: APPEARANCE,URINE CLOUDY (CLEAR); BACTERIA,URINE TRACE /HPF (NEGATIVE); COLOR,URINE PALE YELLOW (YELLOW); SQUAMOUS EPITHELIAL CELL,UR RARE /HPF (NEGATIVE)
--- NOTE | 2023-06-29 23:46 | CT ---
EXAM:CT CHEST WITHOUT CONTRASTHISTORY:hypoxia;COMPARISON:04/07TECHNIQUE:Axial images were acquired of the chest without IV contrast. Sagittal and coronal reformatted images were provided. All images were reviewed in a variety of windows and levels. 3D MIPS were performed and reviewed.RADIATION REDUCTION TECHNIQUE: Automated exposure control, Adjustment of the mA and/or kV according to patient size, or iterative reconstruction techniques were used.FINDINGS:CHEST:Please note that lack of IV contrast limits evaluation of soft tissue structures and vascular detailTHYROID GLAND: The thyroid gland is grossly unremarkable.HEART AND VESSELS: The heart size is within normal limits. There is no evidence of a pericardial effusion. The thoracic aorta is normal is size without evidence of an aneurysm. The main pulmonary artery size is within normal limits.LYMPHNODES: There is no evidence of axillary, mediastinal, or hilar lymphadenopathy.AIRWAY: The trachea and mainstem bronchi are patent. There are no intraluminal lesions seen.LUNGS: Left lower lobe subsegmental atelectasis or infiltrate. No pleural effusion or pneumothorax.ESOPHAGUS: The esophagus is grossly unremarkable.BONES: The visualized bones demonstrate degenerative changes. There are no concerning lytic or blastic lesions identified.UPPER ABDOMINAL STRUCTURES: The visualized portions of the upper abdominal structures are unremarkable.IMPRESSION:Left lower lobe subsegmental atelectasis and/or infiltrate.THIS IS AN ELECTRONICALLY VERIFIED FINAL REPORT06/29/2023 11:42 PM - Electronically signed by Vance Ardon MD
[2023-06-29] MEDS: NS 1,000 ML IV 1,000 ML IV SCH (23:51)
[2023-06-30] MEDS: ROCEPHIN VIAL 1 GRAM 1 G in NS 100 ML IV 100 ML IV SCH (00:34)
[2023-06-30] MEDS: DUONEB 0.5 MG/3 MG (3 mL) NEB SCH (01:57)
[2023-06-30 02:00] VITALS: BMI 34.7
[2023-06-30 05:28] LABS: BASOPHILS % (AUTO) 0.3 % (0.2-1.0); EOSINOPHILS % (AUTO) 0.4 % (0.9-2.9); HEMATOCRIT 50.2 % (36.0-47.0); LYMPHOCYTES # (AUTO) 4.3 X10^3/uL (1.3-2.9); LYMPHOCYTES % (AUTO) 35.2 % (21.0-51.0); MEAN CORPUSCULAR HEMOGLOBIN 31.3 pg (27.0-34.0); MEAN CORPUSCULAR VOLUME 97.8 fL (80.0-100.0); MEAN PLATELET VOLUME 8.5 fL (7.4-11.0); MONOCYTES # (AUTO) 1.1 x10^3/uL (0.3-0.8); MONOCYTES % (AUTO) 9.2 % (0.0-13.0); NEUTROPHILS # (AUTO) 6.7 x10^3/uL (2.2-4.8); NEUTROPHILS % (AUTO) 54.9 % (42.0-75.0); PLATELET COUNT 174 X10^3/uL (150.0-450.0); RED BLOOD COUNT 5.13 X10^6/uL (3.5-5.4); RED CELL DISTRIBUTION WIDTH 13.4 % (11.6-16.5); WHITE BLOOD COUNT 12.2 X10^3/uL (3.6-10.0)
[2023-06-30 05:41] LABS: ALANINE AMINOTRANSFERASE 32 Units/L (12-78); ALBUMIN 2.6 g/dL (3.4-5.0); ALKALINE PHOSPHATASE 129 Units/L (46-116); ASPARTATE AMINO TRANSFERASE 27 Units/L (15-37); BLOOD UREA NITROGEN 31 mg/dL (7-18); CALCIUM 8.9 mg/dL (8.5-10.1); CHLORIDE 114 mmol/L (98-107); COR NA(FOR HYPERGLY) 154 mmol/L (136-145); CREATININE 1.09 mg/dL (0.55-1.02); GLUCOSE 134 mg/dL (65-99); POTASSIUM 3.9 mmol/L (3.5-5.1); TOTAL PROTEIN 7.5 g/dL (6.4-8.2); eGFR NON BLACK RACES 51 (>60)
[2023-06-30 06:18] LABS: SODIUM 153 mmol/L (136-145)
[2023-06-30 06:44] LABS: ABG BASE EXCESS 3.8 mmol/L (-2.0-2.0); ABG HCO3 32.2 mmol/L (22-26)
[2023-06-30 06:45] LABS: ABG ALLEN TEST POS
[2023-06-30] MEDS: PULMICORT NEB TX 0.5 MG NEB SCH (08:49)
[2023-06-30] MEDS: D5W 1,000 ML IV 1,000 ML IV SCH (08:59)
[2023-06-30] MEDS ORDERED: PHARMACY CONSULT - VANCOMYCIN XX SCH (10:00)
--- NOTE | 2023-06-30 10:05 | DR.H&P ---
H&P History & Physical for Day of: H&P Date: 06/30/23 Chief Complaint Chief Complaint: AMS, hypoxia Allergies Allergies Allergy/AdvReac Type Severity Reaction Status Date / Time niacin Allergy Mild Verified 06/26/20 17:13 ciprofloxacin Allergy Unknown Unverified 06/29/23 22:28 codeine Allergy Unknown Unverified 06/29/23 22:28 levofloxacin Allergy Unknown Unverified 06/29/23 22:28 tiotropium Allergy Unknown Verified 06/29/23 22:28 [From Spiriva with HandiHaler] topiramate Allergy Unknown Unverified 06/29/23 22:28 azithromycin Allergy Verified 06/29/23 22:28 Corticosteroids Allergy Verified 06/29/23 22:28 (Glucocorticoids) morphine Allergy Verified 06/29/23 22:28 promethazine Allergy Verified 06/29/23 22:28 History of Present Illness History of Present Illness: Ms Whelan is a 78y/o female with multiple co-m orbidities including CAD, CHF, Anemia, DM and schizophrenia was brought to the ER from assisted due to AMS and hypoxia. Patient was noted to be lethargic and O2 sats in the 80s. She had blood Cx done outpatient on 06/27/23, one set positive for Gram positive cocci. In the ER, patient was noted to have elevated Na, trop (-) lactic acid (-). UA showed infection, CT-chest showed left lower lobe pneumonia. Patient's initial ABG showed pCO2 59 and pO2 39. Her repeat ABG showed worsening hypercapnia so she was placed on BiPAP. She was started on IV fluids and IV Rocephin. She is currently on BiPAP FiO2 45%, she opens eyes to name, not able to understand her speech with the BiPAP. Labs/imaging reviewed -WBC 12.2 Hgb 16 Na:153 K:3.9 BUN/Cr: 31/1.09 Trop (-) LA (-) -Blood Cx: pending -06/27/23 Blood Cx x 1: gram positive cocci - Urine Cx pending Plan: Continue BiPAP, repeat ABG at 10AM. Adjust BiPAP settings as per RT. Check d-dimer. Continue IV Rocephin, add Vancomycin. Switch fluids to D5 at 100cc/hr. Follow pending cultures. Patient not able to tolerate PO intake at this time due to being on BiPAP. Place mcdonald for accurate I&Os. Nebs and pulmicort prn. Add lovenox for DVT Ppx. Monitor AM labs/imaging. Time spent for clinical assessment, reviewing labs/imaging, physical exam, decision making and documentation greater than 45 mins. Past Medical History Past Medical History: Anemia, Angina, CHF, COPD, Diabetes, GERD and Schizophrenia Past Surgical History Surgical History: Cholecystectomy, Hysterectomy, Mastectomy and Ortho Surgery Family History Family Medical History: Diabetes Mellitus, Cancer, [place], Coronary Artery Disease, Heart Failure, Sudden Cardiac and Hypertension Medications Home Medications: Home Medications Medication Instructions Recorded Confirmed Type losartan 25 mg tablet 25 mg PO DAILY 11/14/17 06/29/23 History simvastatin 20 mg tablet 20 mg PO HS 11/14/17 06/29/23 History ascorbic acid (vitamin C) 500 mg 500 mg PO BID 03/30/18 06/29/23 History tablet (Vitamin C) divalproex 250 mg tablet,delayed 250 mg PO BID 03/30/18 06/29/23 History release (Depakote) multivitamin 1 tab PO DAILY 03/30/18 06/29/23 History carboxymethylcellulose 0.5 1 drp ophthalmic (eye) BID dry eyes 06/26/20 06/29/23 History %-glycerin 0.9 % eye drops (Refresh Relieva) empagliflozin 10 mg tablet 10 mg PO DAILY 06/26/20 06/29/23 History (Jardiance) famotidine 40 mg tablet (Pepcid) 40 mg PO HS 06/26/20 06/29/23 History ferrous fumarate 324 mg (106 mg 324 mg PO DAILY 06/26/20 06/29/23 History iron) tablet (Ferrocite) gabapentin 400 mg capsule 400 mg PO BID 06/26/20 06/29/23 History insulin regular human 100 unit/mL 1 unit subcut DAILY 06/26/20 06/29/23 History injection solution (Novolin R Regular U-100 Insulin) sennosides 8.6 mg-docusate sodium 1 tab PO BID constipation 06/26/20 06/29/23 History 50 mg tablet glipizide 10 mg tablet 10 mg PO DAILY 03/26/21 06/29/23 History memantine 10 mg tablet 10 mg PO BID 03/26/21 06/29/23 History donepezil 10 mg tablet 10 mg PO QDAY 02/14/22 06/29/23 History methenamine hippurate 1 gram tablet 1 g PO BID 02/14/22 06/29/23 History Labs 06/30/23 04:50 06/30/23 04:50 Labs: Laboratory WBC 12.2 X10^3/uL (3.6-10.0) H 06/30/23 04:50 RBC 5.13 X10^6/uL (3.5-5.4) 06/30/23 04:50 Hgb 16.0 g/dL (12.0-16.0) 06/30/23 04:50 Hct 50.2 % (36.0-47.0) H 06/30/23 04:50 MCV 97.8 fL (80.0-100.0) 06/30/23 04:50 MCH 31.3 pg (27.0-34.0) 06/30/23 04:50 MCHC 32.0 g/dL (33.0-35.0) L 06/30/23 04:50 RDW 13.4 % (11.6-16.5) 06/30/23 04:50 Plt Count 174 X10^3/uL (150.0-450.0) 06/30/23 04:50 MPV 8.5 fL (7.4-11.0) 06/30/23 04:50 Neut % (Auto) 54.9 % (42.0-75.0) 06/30/23 04:50 Lymph % (Auto) 35.2 % (21.0-51.0) 06/30/23 04:50 Terry % (Auto) 9.2 % (0.0-13.0) 06/30/23 04:50 Eos % (Auto) 0.4 % (0.9-2.9) L 06/30/23 04:50 Baso % (Auto) 0.3 % (0.2-1.0) 06/30/23 04:50 Neut # (Auto) 6.7 x10^3/uL (2.2-4.8) H 06/30/23 04:50 Lymph # (Auto) 4.3 X10^3/uL (1.3-2.9) H 06/30/23 04:50 Terry # (Auto) 1.1 x10^3/uL (0.3-0.8) H 06/30/23 04:50 Eos # (Auto) 0.0 x10^3/uL (0.0-0.2) 06/30/23 04:50 Baso # (Auto) 0.0 X10^3/uL (0.0-0.1) 06/30/23 04:50 Absolute Nucleated RBC 0.0 /100WBC 06/30/23 04:50 Sample Site Lr 06/30/23 06:35 ABG pH 7.290 (7.35-7.45) L 06/30/23 06:35 ABG pCO2 67.0 mmHg (35.0-45.0) H* 06/30/23 06:35 ABG pO2 51.0 mmHg (80.0-100.0) L 06/30/23 06:35 ABG HCO3 32.2 mmol/L (22-26) H* 06/30/23 06:35 ABG O2 Saturation 81.0 % (90-100) L* 06/30/23 06:35 ABG Base Excess 3.8 mmol/L (-2.0-2.0) H 06/30/23 06:35 Richard Test Pos 06/30/23 06:35 A-a Gradient 93.0 mmHg 06/30/23 06:35 FiO2 32 06/30/23 06:35 Blood Gas Comments Joelle well ae 06/30/23 06:35 Sodium 153 mmol/L (136-145) H* 06/30/23 04:50 Corrected Sodium 154 mmol/L (136-145) H 06/30/23 04:50 Potassium 3.9 mmol/L (3.5-5.1) 06/30/23 04:50 Chloride 114 mmol/L (98-107) H 06/30/23 04:50 Carbon Dioxide 30.0 mmol/L (21-32) 06/30/23 04:50 BUN 31 mg/dL (7-18) H 06/30/23 04:50 Creatinine 1.09 mg/dL (0.55-1.02) H 06/30/23 04:50 Est GFR (MDRD) Af Amer > 60 (>60) 06/30/23 04:50 Est GFR (MDRD) Non-Af 51 (>60) L 06/30/23 04:50 Glucose 134 mg/dL (65-99) H 06/30/23 04:50 POC Glucose (mg/dL) 134 mg/dL (65-99) H 06/30/23 05:24 Lactic Acid 1.4 mmol/L (0.4-2.0) 06/29/23 21:40 Calcium 8.9 mg/dL (8.5-10.1) 06/30/23 04:50 Corrected Calcium 10.0 mg/dL (8.5-10.1) 06/30/23 04:50 Total Bilirubin 0.20 mg/dL (0.2-1.0) 06/30/23 04:50 AST 27 Units/L (15-37) 06/30/23 04:50 ALT 32 Units/L (12-78) 06/30/23 04:50 Alkaline Phosphatase 129 Units/L (46-116) H 06/30/23 04:50 Creatine Kinase 37 Units/L (26-192) 06/29/23 21:40 Troponin I High Sens 14.2 ng/L (4.0-60.0) 06/29/23 21:40 Total Protein 7.5 g/dL (6.4-8.2) 06/30/23 04:50 Albumin 2.6 g/dL (3.4-5.0) L 06/30/23 04:50 Globulin 4.9 g/dL (2.5-4.5) H 06/30/23 04:50 Albumin/Globulin Ratio 0.5 Ratio (1.1-2.1) L 06/30/23 04:50 Specimen Type Clean catch urine 06/29/23 23:18 Urine Color Pale yellow (YELLOW) 06/29/23 23:18 Urine Appearance Cloudy (CLEAR) 06/29/23 23:18 Urine pH 6.0 (5.0 - 8.0) 06/29/23 23:18 Ur Specific [place] 1.010 (1.000-1.030) 06/29/23 23:18 Urine Protein 2+ (NEGATIVE) 06/29/23 23:18 Urine Glucose (UA) 4+ (NEGATIVE) 06/29/23 23:18 Urine Ketones Negative (NEGATIVE) 06/29/23 23:18 Urine Blood 5+ (NEGATIVE) 06/29/23 23:18 Urine Nitrite Negative (NEGATIVE) 06/29/23 23:18 Urine Bilirubin Negative (NEGATIVE) 06/29/23 23:18 Urine Urobilinogen Normal (NORMAL) 06/29/23 23:18 Ur Leukocyte Esterase 3+ (NEGATIVE) 06/29/23 23:18 Urine RBC 5-10 /HPF (0-3) A 06/29/23 23:18 Urine WBC Tntc /HPF (0-5) A 06/29/23 23:18 Ur Squamous Epith Cells Rare /HPF (NEGATIVE) 06/29/23 23:18 Amorphous Sediment 1+ /HPF (NEGATIVE) 06/29/23 23:18 Urine Bacteria Trace /HPF (NEGATIVE) 06/29/23 23:18 Ur Culture Indicated? Yes/culture set up 06/29/23 23:18 SARS-CoV-2 (PCR) Negative (NEGATIVE) 06/29/23 21:31 Influenza Type A (PCR) Negative (NEGATIVE) 06/29/23 21:31 Influenza Type B (PCR) Negative (NEGATIVE) 06/29/23 21:31 RSV (PCR) Negative (NEGATIVE) 06/29/23 21:31 Review of Systems Constitutional: Weakness Eyes: No Symptoms Reported ENT: No Symptoms Reported Respiratory: Shortness of Breath and SOB with Excertion Cardiovascular: No Symptoms Reported Gastrointestinal: No Symptoms Reported Genitourinary: No Symptoms Reported Musculoskeletal: No Symptoms Reported Skin: No Symptoms Reported Neurological: Confusion Physical Exam Vital Signs: Vital Signs Temperature 97.9 F Temperature 96.8 F Pulse Rate [Left Brachial] 63 Pulse Rate [Left Brachial] 66 Pulse Rate 67 Respiratory Rate 20 Respiratory Rate 20 Blood Pressure [Right Arm] 122/57 Blood Pressure [Left Arm] 130/60 O2 Sat by Pulse Oximetry 92 O2 Sat by Pulse Oximetry 94 O2 Sat by Pulse Oximetry 92 Oriented: Unable to test Eyes: Normal Nose: Normal Respiratory: Diminished Throughout Cardiovascular: Normal Auscultation: Bowel Sounds: Normal Palpation: Normal Tenderness: Normal Skin: Decreased Turgur Musculoskeletal: Normal Psychiatric: Normal Mood Description: Calm Affect: Normal Speech Pattern: Artificially Ventilated Assessment/Plan (1) Acute respiratory failure with hypoxia and hypercapnia: Status: Acute (2) Bacteremia: Status: Acute (3) Altered mental status: Qualifiers: Altered mental status type: delirium Qualified Code(s): R41.0 - Disorientation, unspecified Status: Acute (4) Acute UTI: Status: Acute (5) LLL pneumonia: Qualifiers: Pneumonia type: due to unspecified organism Qualified Code(s): J18.9 - Pneumonia, unspecified organism Status: Acute (6) Hypernatremia: Status: Acute (7) Acute renal failure (ARF): Qualifiers: Acute renal failure type: unspecified Qualified Code(s): N17.9 - Acute kidney failure, unspecified Status: Acute (8) Generalized weakness: Status: Acute (9) COPD (chronic obstructive pulmonary disease): Qualifiers: COPD type: unspecified COPD Qualified Code(s): J44.9 - Chronic obstr uctive pulmonary disease, unspecified Status: Chronic (10) Diabetes mellitus: Qualifiers: Diabetes mellitus complication status: without complication Diabetes mellitus chcf insulin use: without chcf use Diabetes mellitus type: type 2 Qualified Code(s): E11.9 - Type 2 diabetes mellitus without complications Status: Chronic (11) GERD (gastroesophageal reflux disease): Qualifiers: Esophagitis presence: esophagitis presence not specified Qualified Code(s): K21.9 - Gastro-esophageal reflux disease without esophagitis Status: Chronic (12) Hypertension: Qualifiers: Hypertension type: primary hypertension Qualified Code(s): I10 - Essential (primary) hypertension Status: Chronic (13) Anxiety: Status: Chronic Review H&P Reviewed: Yes Patient was examined?: Yes
[2023-06-30 10:21] LABS: ABG BASE EXCESS 5.1 mmol/L (-2.0-2.0)
[2023-06-30 10:22] LABS: ABG ALLEN TEST POS
[2023-06-30] MEDS: VANCOMYCIN IV *PREMIX 1 G/200 ML BAG 1 G/200 ML PIGGYBACK IV SCH (11:00)
[2023-06-30 11:11] LABS: BILIRUBIN,URINE NEGATIVE (NEGATIVE); BLOOD/HEMOGLOBIN,URINE 4+ (NEGATIVE); GLUCOSE, URINE 4+ (NEGATIVE); KETONES,URINE NEGATIVE (NEGATIVE); LEUKOCYTE ESTERASE ,URINE 3+ (NEGATIVE); NITRITES,URINE NEGATIVE (NEGATIVE); PROTEIN,URINE 2+ (NEGATIVE); UROBILINOGEN,URINE NORMAL (NORMAL)
[2023-06-30 11:17] LABS: APPEARANCE,URINE HAZY (CLEAR); COLOR,URINE YELLOW (YELLOW)
[2023-06-30 11:22] LABS: BACTERIA,URINE 1+ /HPF (NEGATIVE); SQUAMOUS EPITHELIAL CELL,UR FEW /HPF (NEGATIVE)
[2023-06-30] MEDS: NovoLIN R (or HumuLIN R) SC PRN (14:00)
--- NOTE | 2023-06-30 17:39 | CT ---
EXAM:CTA, CHESTHISTORY:Shortness of breath, elevated d-dimer, evaluate for pulmonary embolusCOMPARISON:CT of the chest without contrast June 29, 2023TECHNIQUE:CT angiography of the chest with intravenous contrast. Three-dimensional reconstructions and/or MIPS images were produced and reviewed.FINDINGS:Adequate bolus timing. Negative for pulmonary embolus. Mediastinal and bilateral hilar lymphadenopathy. Limited visualization of the upper abdomen demonstrates several locules of gas which are thought to be intra biliary within the liver which are nonspecific and appear similar to the comparison study.Lung windows demonstrate moderate severity bilateral airspace infiltrates predominantly in the lower lobes with areas of dense consolidation posteriorly and dependently. Mild compression deformity T10 vertebral body superior endplate without retropulsion.IMPRESSION:Negative for pulmonary embolus.Bilateral pneumonia, moderate severity. Follow-up to document clearing suggested.Additional findings as described.Dose reduction techniques including automated exposure control (AEC) and adjustment of mA and kv were utilized.THIS IS AN ELECTRONICALLY VERIFIED FINAL REPORT06/30/2023 5:28 PM - Electronically signed by Tejas Grossman MD
[2023-06-30] MEDS: LOVENOX INJ 40 MG SYR SC SCH (18:19)
[2023-06-30] MEDS: CONSULT PHARMACY - POTASSIUM & MAGNESIUM XX SCH (19:52)
[2023-06-30] MEDS: PHARMACY CONSULT LTC MEDICATIONS XX SCH (19:52)
[2023-06-30] MEDS: NS 1,000 ML IV 1,000 ML ONE (19:52)
[2023-06-30] MEDS: PULMICORT NEB TX 0.5 MG NEB ONE (19:53)
[2023-06-30] MEDS: OMNIPAQUE 350 mg/mL 100 mL BTL 100 ML ONE (19:53)
[2023-06-30] MEDS: DUONEB 0.5 MG/3 MG (3 mL) NEB ONE ×2 (19:53)
[2023-07-01 06:07] LABS: BASOPHILS % (AUTO) 0.3 % (0.2-1.0); EOSINOPHILS # (AUTO) 0.1 x10^3/uL (0.0-0.2); EOSINOPHILS % (AUTO) 0.8 % (0.9-2.9); HEMATOCRIT 43.6 % (36.0-47.0); HEMOGLOBIN 14.2 g/dL (12.0-16.0); LYMPHOCYTES # (AUTO) 2.1 X10^3/uL (1.3-2.9); LYMPHOCYTES % (AUTO) 28.7 % (21.0-51.0); MEAN CORPUSCULAR HEMOGLOBIN 31.6 pg (27.0-34.0); MEAN CORPUSCULAR HGB CONC 32.6 g/dL (33.0-35.0); MEAN CORPUSCULAR VOLUME 96.9 fL (80.0-100.0); MEAN PLATELET VOLUME 8.3 fL (7.4-11.0); MONOCYTES # (AUTO) 0.5 x10^3/uL (0.3-0.8); MONOCYTES % (AUTO) 7.4 % (0.0-13.0); NEUTROPHILS # (AUTO) 4.6 x10^3/uL (2.2-4.8); NEUTROPHILS % (AUTO) 62.8 % (42.0-75.0); PLATELET COUNT 169 X10^3/uL (150.0-450.0); RED CELL DISTRIBUTION WIDTH 13.3 % (11.6-16.5); WHITE BLOOD COUNT 7.4 X10^3/uL (3.6-10.0)
[2023-07-01 06:29] LABS: ALANINE AMINOTRANSFERASE 21 Units/L (12-78); ALBUMIN 2.1 g/dL (3.4-5.0); ALKALINE PHOSPHATASE 104 Units/L (46-116); ASPARTATE AMINO TRANSFERASE 20 Units/L (15-37); BLOOD UREA NITROGEN 15 mg/dL (7-18); CALCIUM 8.4 mg/dL (8.5-10.1); CARBON DIOXIDE 29.1 mmol/L (21-32); CHLORIDE 113 mmol/L (98-107); COR CA(FOR HYPOALB) 9.9 mg/dL (8.5-10.1); COR NA(FOR HYPERGLY) 149 mmol/L (136-145); CREATININE 0.69 mg/dL (0.55-1.02); GLUCOSE 157 mg/dL (65-99); MAGNESIUM 2.4 mg/dL (2.0-2.9); POTASSIUM 4.1 mmol/L (3.5-5.1); SODIUM 148 mmol/L (136-145); TOTAL PROTEIN 6.3 g/dL (6.4-8.2); eGFR NON BLACK RACES > 60 (>60)
--- NOTE | 2023-07-01 10:25 | PCM.PROG ---
Progress Note Progress Note for Day of Date of Exam: 07/01/23 Subjective Subjective: Patient seen at bedside, no acute events overnight. She was switched from BiPAP to HHFNC yesterday. She is currently resting. She is admitted for acute respiratory failure due to bilateral pneumonia and UTI. She is on IV Vancomycin and Zosyn. Labs/imaging reviewed -WBC 7.4 Creatinine: 0.69 Na:148 d-dimer 0.71 -Blood Cx: no growth -Urine Cx: Gram (-) rods - Blood Cx 06/27/23: GPC in clusters -CTA-chest: no PE, bilateral pneumonia Plan: Wean HHFNC as tolerated to keep sats >92%, continue IV antibiotics and bronchodilators. Continue hydration with D5. Resume home medications. Patient is from [facility] and will be discharged back when stable. Will follow up on positive blood culture results. Replace electrolytes as per protocol. PT/OT when able. Monitor AM labs/imaging. Time spent for clinical assessment, reviewing labs/imaging, physical exam, decision making and documentation greater than 45 mins. Past Medical Family Social History Allergies: Allergies niacin Allergy (Mild, Verified 06/26/20 17:13) ciprofloxacin Allergy (Unknown, Unverified 06/29/23 22:28) codeine Allergy (Unknown, Unverified 06/29/23 22:28) levofloxacin Allergy (Unknown, Unverified 06/29/23 22:28) tiotropium [From Spiriva with HandiHaler] Allergy (Unknown, Verified 06/29/23 22:28) topiramate Allergy (Unknown, Unverified 06/29/23 22:28) azithromycin Allergy (Verified 06/29/23 22:28) Corticosteroids (Glucocorticoids) Allergy (Verified 06/29/23 22:28) morphine Allergy (Verified 06/29/23 22:28) promethazine Allergy (Verified 06/29/23 22:28) Vital Signs and I&O's Vital Signs: Vital Signs Temperature 97.8 F Temperature 98.9 F Pulse Rate [Left Brachial] 75 Pulse Rate [Left Brachial] 75 Pulse Rate 78 Respiratory Rate 20 Respiratory Rate 20 Respiratory Rate 20 Respiratory Rate 21 Blood Pressure [Right Arm] 110/53 Blood Pressure [Right Arm] 117/62 O2 Sat by Pulse Oximetry 98 O2 Sat by Pulse Oximetry 94 O2 Sat by Pulse Oximetry 98 Intake and Output: Intake & Output 06/28/23 06/29/23 06/30/23 07/01/23 23:59 23:59 23:59 23:59 Intake Total 598 / 598 806 / 806 Output Total 640 / 640 200 / 200 Balance -42 / -42 606 / 606 Physical Exam Oriented: Unable to test Eyes: Normal Nose: Normal Throat: Dry Respiratory: Generalized and Diminished Cardiovascular: Normal Auscultation: Bowel Sounds: Normal Palpation: Normal Tenderness: Normal Skin: Decreased Turgur Musculoskeletal: Normal Psychiatric: Normal Mood Description: Calm Affect: Normal Speech Pattern: Inappropriate Laboratory and Diagnostics 07/01/23 05:20 07/01/23 05:20 Labs: 06/29/23 23:18 Urine,Catheterized Urine Culture - Preliminary 06/29/23 23:35 Blood Blood Culture - Preliminary 06/29/23 21:40 Blood Blood Culture - Preliminary Laboratory WBC 7.4 X10^3/uL (3.6-10.0) 07/01/23 05:20 RBC 4.50 X10^6/uL (3.5-5.4) 07/01/23 05:20 Hgb 14.2 g/dL (12.0-16.0) 07/01/23 05:20 Hct 43.6 % (36.0-47.0) 07/01/23 05:20 MCV 96.9 fL (80.0-100.0) 07/01/23 05:20 MCH 31.6 pg (27.0-34.0) 07/01/23 05:20 MCHC 32.6 g/dL (33.0-35.0) L 07/01/23 05:20 RDW 13.3 % (11.6-16.5) 07/01/23 05:20 Plt Count 169 X10^3/uL (150.0-450.0) 07/01/23 05:20 MPV 8.3 fL (7.4-11.0) 07/01/23 05:20 Neut % (Auto) 62.8 % (42.0-75.0) 07/01/23 05:20 Lymph % (Auto) 28.7 % (21.0-51.0) 07/01/23 05:20 [place] % (Auto) 7.4 % (0.0-13.0) 07/01/23 05:20 Eos % (Auto) 0.8 % (0.9-2.9) L 07/01/23 05:20 Baso % (Auto) 0.3 % (0.2-1.0) 07/01/23 05:20 Neut # (Auto) 4.6 x10^3/uL (2.2-4.8) 07/01/23 05:20 Lymph # (Auto) 2.1 X10^3/uL (1.3-2.9) 07/01/23 05:20 Hall # (Auto) 0.5 x10^3/uL (0.3-0.8) 07/01/23 05:20 Eos # (Auto) 0.1 x10^3/uL (0.0-0.2) 07/01/23 05:20 Baso # (Auto) 0.0 X10^3/uL (0.0-0.1) 07/01/23 05:20 Absolute Nucleated RBC 0.1 /100WBC 07/01/23 05:20 D-Dimer 0.71 ug/ml (0.0-0.57) H 06/30/23 10:35 Sample Site Lr 06/30/23 10:16 ABG pH 7.320 (7.35-7.45) L 06/30/23 10:16 ABG pCO2 64.0 mmHg (35.0-45.0) H* 06/30/23 10:16 ABG pO2 68.0 mmHg (80.0-100.0) L 06/30/23 10:16 ABG HCO3 33.0 mmol/L (22-26) H* 06/30/23 10:16 ABG O2 Saturation 92.0 % (90-100) 06/30/23 10:16 ABG Base Excess 5.1 mmol/L (-2.0-2.0) H 06/30/23 10:16 Richard Test Pos 06/30/23 10:16 A-a Gradient 244.0 mmHg 06/30/23 10:16 FiO2 55.0 06/30/23 10:16 Blood Gas Comments Pt prince well cdn 06/30/23 10:16 Sodium 148 mmol/L (136-145) H 07/01/23 05:20 Corrected Sodium 149 mmol/L (136-145) H 07/01/23 05:20 Potassium 4.1 mmol/L (3.5-5.1) 07/01/23 05:20 Chloride 113 mmol/L (98-107) H 07/01/23 05:20 Carbon Dioxide 29.1 mmol/L (21-32) 07/01/23 05:20 BUN 15 mg/dL (7-18) 07/01/23 05:20 Creatinine 0.69 mg/dL (0.55-1.02) 07/01/23 05:20 Est GFR (MDRD) Af Amer > 60 (>60) 07/01/23 05:20 Est GFR (MDRD) Non-Af > 60 (>60) 07/01/23 05:20 Glucose 157 mg/dL (65-99) H 07/01/23 05:20 POC Glucose (mg/dL) 159 mg/dL (65-99) H 07/01/23 05:48 Lactic Acid 1.4 mmol/L (0.4-2.0) 06/29/23 21:40 Calcium 8.4 mg/dL (8.5-10.1) L 07/01/23 05:20 Corrected Calcium 9.9 mg/dL (8.5-10.1) 07/01/23 05:20 Magnesium 2.4 mg/dL (2.0-2.9) 07/01/23 05:20 Total Bilirubin 0.30 mg/dL (0.2-1.0) 07/01/23 05:20 AST 20 Units/L (15-37) 07/01/23 05:20 ALT 21 Units/L (12-78) 07/01/23 05:20 Alkaline Phosphatase 104 Units/L (46-116) 07/01/23 05:20 Creatine Kinase 37 Units/L (26-192) 06/29/23 21:40 Troponin I High Sens 14.2 ng/L (4.0-60.0) 06/29/23 21:40 Total Protein 6.3 g/dL (6.4-8.2) L 07/01/23 05:20 Albumin 2.1 g/dL (3.4-5.0) L 07/01/23 05:20 Globulin 4.2 g/dL (2.5-4.5) 07/01/23 05:20 Albumin/Globulin Ratio 0.5 Ratio (1.1-2.1) L 07/01/23 05:20 Specimen Type Catherized urine 06/30/23 10:55 Urine Color Yellow (YELLOW) 06/30/23 10:55 Urine Appearance Hazy (CLEAR) 06/30/23 10:55 Urine pH 6.0 (5.0 - 8.0) 06/30/23 10:55 Ur Specific [place] 1.015 (1.000-1.030) 06/30/23 10:55 Urine Protein 2+ (NEGATIVE) 06/30/23 10:55 Urine Glucose (UA) 4+ (NEGATIVE) 06/30/23 10:55 Urine Ketones Negative (NEGATIVE) 06/30/23 10:55 Urine Blood 4+ (NEGATIVE) 06/30/23 10:55 Urine Nitrite Negative (NEGATIVE) 06/30/23 10:55 Urine Bilirubin Negative (NEGATIVE) 06/30/23 10:55 Urine Urobilinogen Normal (NORMAL) 06/30/23 10:55 Ur Leukocyte Esterase 3+ (NEGATIVE) 06/30/23 10:55 Urine RBC 10-20 /HPF (0-3) A 06/30/23 10:55 Urine WBC Tntc /HPF (0-5) A 06/30/23 10:55 Ur Squamous Epith Cells Few /HPF (NEGATIVE) 06/30/23 10:55 Amorphous Sediment 1+ /HPF (NEGATIVE) 06/29/23 23:18 Urine Bacteria 1+ /HPF (NEGATIVE) 06/30/23 10:55 Ur Culture Indicated? No/not indicated 06/30/23 10:55 SARS-CoV-2 (PCR) Negative (NEGATIVE) 06/29/23 21:31 Influenza Type A (PCR) Negative (NEGATIVE) 06/29/23 21:31 Influenza Type B (PCR) Negative (NEGATIVE) 06/29/23 21:31 RSV (PCR) Negative (NEGATIVE) 06/29/23 21:31 Plan (1) Acute respiratory failure with hypoxia and hypercapnia: Status: Acute (2) Bacteremia: Status: Acute (3) Altered mental status: Status: Acute Qualifiers: Altered mental status type: delirium Qualified Code(s): R41.0 - Disorientation, unspecified (4) Acute UTI: Status: Acute (5) LLL pneumonia: Status: Acute Qualifiers: Pneumonia type: due to unspecified organism Qualified Code(s): J18.9 - Pneumonia, unspecified organism (6) Hypernatremia: Status: Acute (7) Acute renal failure (ARF): Status: Acute Qualifiers: Acute renal failure type: unspecified Qualified Code(s): N17.9 - Acute kidney failure, unspecified (8) Generalized weakness: Status: Acute (9) COPD (chronic obstructive pulmonary disease): Status: Chronic Qualifiers: COPD type: unspecified COPD Qualified Code(s): J44.9 - Chronic ob structive pulmonary disease, unspecified (10) Diabetes mellitus: Status: Chronic Qualifiers: Diabetes mellitus complication status: without complication Diabetes mellitus nursing home insulin use: without terminal computer operator use Diabetes mellitus type: type 2 Qualified Code(s): E11.9 - Type 2 diabetes mellitus without complications (11) GERD (gastroesophageal reflux disease): Status: Chronic Qualifiers: Esophagitis presence: esophagitis presence not specified Qualified Code(s): K21.9 - Gastro-esophageal reflux disease without esophagitis (12) Hypertension: Status: Chronic Qualifiers: Hypertension type: primary hypertension Qualified Code(s): I10 - Essential (primary) hypertension (13) Anxiety: Status: Chronic
[2023-07-01] MEDS: FERROUS GLUCONATE PO SCH (11:30)
[2023-07-01] MEDS: GLUCOTROL PO SCH (11:30)
[2023-07-01] MEDS: ARTIFICIAL TEARS DROPS OP SCH (12:01)
[2023-07-01] MEDS: NAMENDA TAB 10 MG PO SCH (21:25)
[2023-07-01] MEDS: ZOCOR TAB 20 MG PO SCH (21:26)
[2023-07-01] MEDS: PEPCID TAB 40 MG PO SCH (21:26)
[2023-07-01] MEDS: DEPAKOTE D.R. TAB PO SCH (21:26)
[2023-07-01] MEDS: NEURONTIN CAP 400 MG PO SCH (21:26)
[2023-07-01] MEDS: PHARMACY COMMENT IV ONE (21:27)
[2023-07-01 21:31] LABS: CREATININE 0.73 mg/dL (0.55-1.02); VANCOMYCIN,TROUGH 16.3 ug/mL (15-20)
[2023-07-02 06:15] LABS: BASOPHILS % (AUTO) 0.4 % (0.2-1.0); EOSINOPHILS # (AUTO) 0.2 x10^3/uL (0.0-0.2); EOSINOPHILS % (AUTO) 2.1 % (0.9-2.9); HEMATOCRIT 43.3 % (36.0-47.0); HEMOGLOBIN 14.2 g/dL (12.0-16.0); LYMPHOCYTES # (AUTO) 2.9 X10^3/uL (1.3-2.9); LYMPHOCYTES % (AUTO) 39.8 % (21.0-51.0); MEAN CORPUSCULAR HGB CONC 32.7 g/dL (33.0-35.0); MEAN CORPUSCULAR VOLUME 94.8 fL (80.0-100.0); MEAN PLATELET VOLUME 7.9 fL (7.4-11.0); MONOCYTES # (AUTO) 0.5 x10^3/uL (0.3-0.8); MONOCYTES % (AUTO) 6.7 % (0.0-13.0); NEUTROPHILS # (AUTO) 3.7 x10^3/uL (2.2-4.8); PLATELET COUNT 180 X10^3/uL (150.0-450.0); RED BLOOD COUNT 4.57 X10^6/uL (3.5-5.4); WHITE BLOOD COUNT 7.3 X10^3/uL (3.6-10.0)
[2023-07-02 06:31] LABS: ALANINE AMINOTRANSFERASE 12 Units/L (12-78); ALBUMIN 2.2 g/dL (3.4-5.0); ALKALINE PHOSPHATASE 91 Units/L (46-116); ASPARTATE AMINO TRANSFERASE 19 Units/L (15-37); BLOOD UREA NITROGEN 11 mg/dL (7-18); CALCIUM 8.7 mg/dL (8.5-10.1); CARBON DIOXIDE 27.1 mmol/L (21-32); CHLORIDE 109 mmol/L (98-107); COR CA(FOR HYPOALB) 10.1 mg/dL (8.5-10.1); CREATININE 0.55 mg/dL (0.55-1.02); GLUCOSE 102 mg/dL (65-99); POTASSIUM 3.9 mmol/L (3.5-5.1); SODIUM 144 mmol/L (136-145); TOTAL PROTEIN 6.4 g/dL (6.4-8.2); eGFR NON BLACK RACES > 60 (>60)
[2023-07-02] MEDS: ARICEPT TAB 10 MG PO SCH (08:15)
--- NOTE | 2023-07-02 09:40 | PCM.PROG ---
Progress Note Progress Note for Day of Date of Exam: 07/02/23 Subjective Subjective: Patient seen at bedside, no acute events overnight. She remained on HHFNC yesterday, switch to NC this morning. She is currently on 4-5L. She is admitted for acute respiratory failure due to bilateral pneumonia and UTI. She is on IV Vancomycin and Zosyn. Labs/imaging reviewed -WBC 7.3 Creatinine: 0.55 Na:144 -Blood Cx: no growth -Urine Cx: Klebsiella Oxytoca - Blood Cx 06/27/23: contaminated -CTA-chest: no PE, bilateral pneumonia -AIT resp: Parainfluenza Plan: Wean O2 as tolerated to keep sats >92%, continue nasal canula for now and monitor. Continue IV antibiotics and bronchodilators. Will DC Vancomycin. Continue hydration with D5. Continue home medications. Patient is from [facility] and will be discharged back when stable. Replace electrolytes as per protocol. PT/OT as tolerated. Patient is wheelchair bound and does not ambulate. Monitor AM labs/imaging. Possible discharge to [facility] tomorrow. Past Medical Family Social History Allergies: Allergies niacin Allergy (Mild, Verified 06/26/20 17:13) ciprofloxacin Allergy (Unknown, Unverified 06/29/23 22:28) codeine Allergy (Unknown, Unverified 06/29/23 22:28) levofloxacin Allergy (Unknown, Unverified 06/29/23 22:28) tiotropium [From Spiriva with HandiHaler] Allergy (Unknown, Verified 06/29/23 22:28) topiramate Allergy (Unknown, Unverified 06/29/23 22:28) azithromycin Allergy (Verified 06/29/23 22:28) Corticosteroids (Glucocorticoids) Allergy (Verified 06/29/23 22:28) morphine Allergy (Verified 06/29/23 22:28) promethazine Allergy (Verified 06/29/23 22:28) Vital Signs and I&O's Vital Signs: Vital Signs Temperature 98.2 F Temperature 98.4 F Pulse Rate [Left Brachial] 59 Pulse Rate [Left Brachial] 67 Pulse Rate 74 Respiratory Rate 20 Respiratory Rate 17 Respiratory Rate 18 Blood Pressure [Left Arm] 119/56 Blood Pressure [Left Arm] 140/64 O2 Sat by Pulse Oximetry 92 O2 Sat by Pulse Oximetry 90 O2 Sat by Pulse Oximetry 91 Intake and Output: Intake & Output 06/29/23 06/30/23 07/01/23 07/02/23 23:59 23:59 23:59 23:59 Intake Total 598 / 598 1456 / 1456 0 / 0 Output Total 640 / 640 1170 / 1170 240 / 240 Balance -42 / -42 286 / 286 -240 / -240 Physical Exam Oriented: Unable to test Eyes: Normal Nose: Normal Throat: Normal Respiratory: Generalized and Diminished Cardiovascular: Normal Auscultation: Bowel Sounds: Normal Tenderness: Normal Skin: Decreased [place] Musculoskeletal: Normal Psychiatric: Normal Mood Description: Calm Affect: Normal Speech Pattern: Inappropriate Laboratory and Diagnostics 07/02/23 05:35 07/02/23 05:35 Labs: 06/29/23 23:18 Urine,Catheterized Urine Culture - Final Klebsiella Oxytoca 06/29/23 23:35 Blood Blood Culture - Preliminary 06/29/23 21:40 Blood Blood Culture - Preliminary Laboratory WBC 7.3 X10^3/uL (3.6-10.0) 07/02/23 05:35 RBC 4.57 X10^6/uL (3.5-5.4) 07/02/23 05:35 Hgb 14.2 g/dL (12.0-16.0) 07/02/23 05:35 Hct 43.3 % (36.0-47.0) 07/02/23 05:35 MCV 94.8 fL (80.0-100.0) 07/02/23 05:35 MCH 31.0 pg (27.0-34.0) 07/02/23 05:35 MCHC 32.7 g/dL (33.0-35.0) L 07/02/23 05:35 RDW 13.0 % (11.6-16.5) 07/02/23 05:35 Plt Count 180 X10^3/uL (150.0-450.0) 07/02/23 05:35 MPV 7.9 fL (7.4-11.0) 07/02/23 05:35 Neut % (Auto) 51.0 % (42.0-75.0) 07/02/23 05:35 Lymph % (Auto) 39.8 % (21.0-51.0) 07/02/23 05:35 [place] % (Auto) 6.7 % (0.0-13.0) 07/02/23 05:35 Eos % (Auto) 2.1 % (0.9-2.9) 07/02/23 05:35 Baso % (Auto) 0.4 % (0.2-1.0) 07/02/23 05:35 Neut # (Auto) 3.7 x10^3/uL (2.2-4.8) 07/02/23 05:35 Lymph # (Auto) 2.9 X10^3/uL (1.3-2.9) 07/02/23 05:35 [place] # (Auto) 0.5 x10^3/uL (0.3-0.8) 07/02/23 05:35 Eos # (Auto) 0.2 x10^3/uL (0.0-0.2) 07/02/23 05:35 Baso # (Auto) 0.0 X10^3/uL (0.0-0.1) 07/02/23 05:35 Absolute Nucleated RBC 0.2 /100WBC 07/02/23 05:35 D-Dimer 0.71 ug/ml (0.0-0.57) H 06/30/23 10:35 Sample Site Lr 06/30/23 10:16 ABG pH 7.320 (7.35-7.45) L 06/30/23 10:16 ABG pCO2 64.0 mmHg (35.0-45.0) H* 06/30/23 10:16 ABG pO2 68.0 mmHg (80.0-100.0) L 06/30/23 10:16 ABG HCO3 33.0 mmol/L (22-26) H* 06/30/23 10:16 ABG O2 Saturation 92.0 % (90-100) 06/30/23 10:16 ABG Base Excess 5.1 mmol/L (-2.0-2.0) H 06/30/23 10:16 Richard Test Pos 06/30/23 10:16 A-a Gradient 244.0 mmHg 06/30/23 10:16 FiO2 55.0 06/30/23 10:16 Blood Gas Comments Pt prince well cdn 06/30/23 10:16 Sodium 144 mmol/L (136-145) 07/02/23 05:35 Corrected Sodium TNP 07/02/23 05:35 Potassium 3.9 mmol/L (3.5-5.1) 07/02/23 05:35 Chloride 109 mmol/L (98-107) H 07/02/23 05:35 Carbon Dioxide 27.1 mmol/L (21-32) 07/02/23 05:35 BUN 11 mg/dL (7-18) 07/02/23 05:35 Creatinine 0.55 mg/dL (0.55-1.02) 07/02/23 05:35 Est GFR (MDRD) Af Amer > 60 (>60) 07/02/23 05:35 Est GFR (MDRD) Non-Af > 60 (>60) 07/02/23 05:35 Glucose 102 mg/dL (65-99) H 07/02/23 05:35 POC Glucose (mg/dL) 106 mg/dL (65-99) H 07/02/23 05:17 Lactic Acid 1.4 mmol/L (0.4-2.0) 06/29/23 21:40 Calcium 8.7 mg/dL (8.5-10.1) 07/02/23 05:35 Corrected Calcium 10.1 mg/dL (8.5-10.1) 07/02/23 05:35 Magnesium 2.4 mg/dL (2.0-2.9) 07/01/23 05:20 Total Bilirubin 0.40 mg/dL (0.2-1.0) 07/02/23 05:35 AST 19 Units/L (15-37) 07/02/23 05:35 ALT 12 Units/L (12-78) 07/02/23 05:35 Alkaline Phosphatase 91 Units/L (46-116) 07/02/23 05:35 Creatine Kinase 37 Units/L (26-192) 06/29/23 21:40 Troponin I High Sens 14.2 ng/L (4.0-60.0) 06/29/23 21:40 Total Protein 6.4 g/dL (6.4-8.2) 07/02/23 05:35 Albumin 2.2 g/dL (3.4-5.0) L 07/02/23 05:35 Globulin 4.2 g/dL (2.5-4.5) 07/02/23 05:35 Albumin/Globulin Ratio 0.5 Ratio (1.1-2.1) L 07/02/23 05:35 Specimen Type Catherized urine 06/30/23 10:55 Urine Color Yellow (YELLOW) 06/30/23 10:55 Urine Appearance Hazy (CLEAR) 06/30/23 10:55 Urine pH 6.0 (5.0 - 8.0) 06/30/23 10:55 Ur Specific [place] 1.015 (1.000-1.030) 06/30/23 10:55 Urine Protein 2+ (NEGATIVE) 06/30/23 10:55 Urine Glucose (UA) 4+ (NEGATIVE) 06/30/23 10:55 Urine Ketones Negative (NEGATIVE) 06/30/23 10:55 Urine Blood 4+ (NEGATIVE) 06/30/23 10:55 Urine Nitrite Negative (NEGATIVE) 06/30/23 10:55 Urine Bilirubin Negative (NEGATIVE) 06/30/23 10:55 Urine Urobilinogen Normal (NORMAL) 06/30/23 10:55 Ur Leukocyte Esterase 3+ (NEGATIVE) 06/30/23 10:55 Urine RBC 10-20 /HPF (0-3) A 06/30/23 10:55 Urine WBC Tntc /HPF (0-5) A 06/30/23 10:55 Ur Squamous Epith Cells Few /HPF (NEGATIVE) 06/30/23 10:55 Amorphous Sediment 1+ /HPF (NEGATIVE) 06/29/23 23:18 Urine Bacteria 1+ /HPF (NEGATIVE) 06/30/23 10:55 Ur Culture Indicated? No/not indicated 06/30/23 10:55 Vancomycin Trough 16.3 ug/mL (15-20) 07/01/23 20:50 SARS-CoV-2 (PCR) Negative (NEGATIVE) 06/29/23 21:31 Influenza Type A (PCR) Negative (NEGATIVE) 06/29/23 21:31 Influenza Type B (PCR) Negative (NEGATIVE) 06/29/23 21:31 RSV (PCR) Negative (NEGATIVE) 06/29/23 21:31 Resp Viral Panel (PCR) See scanned report 06/30/23 01:45 Plan (1) Acute respiratory failure with hypoxia and hypercapnia: Status: Acute (2) Altered mental status: Status: Acute Qualifiers: Altered mental status type: delirium Qualified Code(s): R41.0 - Disorientation, unspecified (3) Parainfluenza: Status: Acute (4) Acute UTI: Status: Acute (5) LLL pneumonia: Status: Acute Qualifiers: Pneumonia type: due to unspecified organism Qualified Code(s): J18.9 - Pneumonia, unspecified organism (6) Hypernatremia: Status: Acute (7) Acute renal failure (ARF): Status: Acute Qualifiers: Acute renal failure type: unspecified Qualified Code(s): N17.9 - Acute kidney failure, unspecified (8) Generalized weakness: Status: Acute (9) COPD (chronic obstructive pulmonary disease): Status: Chronic Qualifiers: COPD type: unspecified COPD Qualified Code(s): J44.9 - Chronic obstructive pulmonary disease, unspecified (10) Diabetes mellitus: Status: Chronic Qualifiers: Diabetes mellitus complication status: without complication 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
[2023-07-03 06:25] LABS: BASOPHILS % (AUTO) 0.2 % (0.2-1.0); EOSINOPHILS # (AUTO) 0.2 x10^3/uL (0.0-0.2); EOSINOPHILS % (AUTO) 2.3 % (0.9-2.9); HEMOGLOBIN 14.7 g/dL (12.0-16.0); LYMPHOCYTES # (AUTO) 2.3 X10^3/uL (1.3-2.9); LYMPHOCYTES % (AUTO) 29.7 % (21.0-51.0); MEAN CORPUSCULAR HEMOGLOBIN 31.5 pg (27.0-34.0); MEAN CORPUSCULAR HGB CONC 33.4 g/dL (33.0-35.0); MEAN CORPUSCULAR VOLUME 94.3 fL (80.0-100.0); MEAN PLATELET VOLUME 8.1 fL (7.4-11.0); MONOCYTES # (AUTO) 0.5 x10^3/uL (0.3-0.8); MONOCYTES % (AUTO) 6.8 % (0.0-13.0); NEUTROPHILS # (AUTO) 4.7 x10^3/uL (2.2-4.8); PLATELET COUNT 173 X10^3/uL (150.0-450.0); RED BLOOD COUNT 4.67 X10^6/uL (3.5-5.4); RED CELL DISTRIBUTION WIDTH 12.6 % (11.6-16.5); WHITE BLOOD COUNT 7.7 X10^3/uL (3.6-10.0)
[2023-07-03 06:57] LABS: ALANINE AMINOTRANSFERASE 15 Units/L (12-78); ALBUMIN 2.2 g/dL (3.4-5.0); ALKALINE PHOSPHATASE 85 Units/L (46-116); ASPARTATE AMINO TRANSFERASE 14 Units/L (15-37); BLOOD UREA NITROGEN 7 mg/dL (7-18); CALCIUM 8.8 mg/dL (8.5-10.1); CARBON DIOXIDE 31.9 mmol/L (21-32); CHLORIDE 110 mmol/L (98-107); COR CA(FOR HYPOALB) 10.2 mg/dL (8.5-10.1); COR NA(FOR HYPERGLY) 148 mmol/L (136-145); GLUCOSE 176 mg/dL (65-99); POTASSIUM 3.8 mmol/L (3.5-5.1); SODIUM 146 mmol/L (136-145); TOTAL PROTEIN 6.4 g/dL (6.4-8.2); eGFR NON BLACK RACES > 60 (>60)
[2023-07-03 12:28] VITALS: BP 127/59; PULSE 60; RESP 18; TEMP 97.5; O2SAT 94
--- NOTE | 2023-07-06 16:28 | W.DIS.FURT ---
Summary of Discharge Discharge Summary of Date Date of Exam: 07/03/23 Admission Date Date of Admission: 06/29/23 Admission Diagnosis Patient Problems (Updated 07/02/23 @ 09:40 by Marisela Rice) Hypoxia (Acute) R09.02 LLL pneumonia (Acute) J18.9 Hypernatremia (Acute) E87.0 Acute renal failure (ARF) (Acute) N17.9 Hospital Course: Patient is an 78 year old female admitted for bilateral pneumonia and acute cystitis. She is currently on 3-4L. Her hospital/treatment course included IV Vancomycin and Zosyn. Scheduled bronchodilators. IVF. Urine Cx: Klebsiella Oxytoca. AIT resp: Parainfluenza. Pt responded well to treatments and symptoms significantly improved. Rx cefdinir. She was discharged back to [facility] in stable condition with supplemental oxygen. Follow up with pcp. Vital Signs: Vital Signs (72 hours) 06/30/23 12:00 06/30/23 16:00 06/30/23 17:15 Temperature 98.5 F 97.5 F L Pulse Rate Pulse Rate [Left Brachial] 75 76 Respiratory Rate 18 18 20 Blood Pressure [Left Arm] Blood Pressure [Right Arm] 122/57 112/57 O2 Sat by Pulse Oximetry 94 L 97 Oxygen Delivery Method Bi-pap Bi-pap Heated High Flow NC Oxygen Flow Rate FIO2% 88 06/30/23 19:00 06/30/23 20:00 07/01/23 00:00 Temperature 97.7 F 97.9 F Pulse Rate Pulse Rate [Left Brachial] 73 71 Respiratory Rate 21 19 Blood Pressure [Left Arm] Blood Pressure [Right Arm] 127/62 105/60 O2 Sat by Pulse Oximetry 100 98 Oxygen Delivery Method Heated High Flow NC Heated High Flow NC Heated High Flow NC Oxygen Flow Rate FIO2% 06/30/23 21:00 06/30/23 21:00 07/01/23 04:00 Temperature 98.9 F Pulse Rate 89 Pulse Rate [Left Brachial] 75 Respiratory Rate 21 Blood Pressure [Left Arm] Blood Pressure [Right Arm] 117/62 O2 Sat by Pulse Oximetry 100 98 Oxygen Delivery Method Heated High Flow NC Heated High Flow NC Oxygen Flow Rate FIO2% 88 07/01/23 08:00 07/01/23 08:38 07/01/23 08:38 Temperature 97.8 F Pulse Rate 78 Pulse Rate [Left Brachial] 75 Respiratory Rate 20 20 Blood Pressure [Left Arm] Blood Pressure [Right Arm] 110/53 O2 Sat by Pulse Oximetry 94 L 98 Oxygen Delivery Method Heated High Flow NC Heated High Flow NC Oxygen Flow Rate FIO2% 88 07/01/23 08:50 07/01/23 07:00 07/01/23 12:00 Temperature 99.2 F Pulse Rate Pulse Rate [Left Brachial] 77 Respiratory Rate 20 20 Blood Pressure [Left Arm] Blood Pressure [Right Arm] 105/55 O2 Sat by Pulse Oximetry 91 L Oxygen Delivery Method Heated High Flow NC Heated High Flow NC Heated High Flow NC Oxygen Flow Rate FIO2% 45 07/01/23 15:49 07/01/23 19:00 07/01/23 20:00 Temperature 97.6 F 98.3 F Pulse Rate Pulse Rate [Left Brachial] 67 72 Respiratory Rate 18 19 Blood Pressure [Left Arm] Blood Pressure [Right Arm] 109/55 115/69 O2 Sat by Pulse Oximetry 92 L 93 L Oxygen Delivery Method Heated High Flow NC Heated High Flow NC Oxygen Flow Rate FIO2% 07/01/23 20:00 07/01/23 23:57 07/01/23 20:10 Temperature 98.3 F 99.2 F Pulse Rate Pulse Rate [Left Brachial] 72 71 Respiratory Rate 19 18 Blood Pressure [Left Arm] 115/69 119/55 Blood Pressure [Right Arm] O2 Sat by Pulse Oximetry 91 L 95 Oxygen Delivery Method Heated High Flow NC Heated High Flow NC Heated High Flow NC Oxygen Flow Rate FIO2% 45 07/01/23 20:10 07/02/23 04:00 07/02/23 05:46 Temperature 98.4 F Pulse Rate 87 Pulse Rate [Left Brachial] 67 Respiratory Rate 18 Blood Pressure [Left Arm] 140/64 Blood Pressure [Right Arm] O2 Sat by Pulse Oximetry 98 91 L Oxygen Delivery Method Room Air Heated High Flow NC Oxygen Flow Rate FIO2% 45 07/02/23 08:00 07/02/23 08:33 07/02/23 08:33 Temperature 98.2 F Pulse Rate 74 Pulse Rate [Left Brachial] 59 L Respiratory Rate 17 Blood Pressure [Left Arm] 119/56 Blood Pressure [Right Arm] O2 Sat by Pulse Oximetry 90 L 92 L Oxygen Delivery Method Room Air Nasal Cannula Oxygen Flow Rate 4 FIO2% 36 07/02/23 08:30 07/02/23 09:22 07/02/23 12:00 Temperature 97.3 F L Pulse Rate Pulse Rate [Left Brachial] 65 Respiratory Rate 20 18 Blood Pressure [Left Arm] 119/57 Blood Pressure [Right Arm] O2 Sat by Pulse Oximetry 90 L Oxygen Delivery Method Room Air Heated High Flow NC Room Air Oxygen Flow Rate FIO2% 45 07/02/23 16:00 07/02/23 20:00 07/02/23 20:00 Temperature 97.9 F 99.2 F 99.2 F Pulse Rate Pulse Rate [Left Brachial] 69 74 74 Respiratory Rate 17 18 18 Blood Pressure [Left Arm] Blood Pressure [Right Arm] 128/61 134/66 180/72 O2 Sat by Pulse Oximetry 94 L 97 97 Oxygen Delivery Method Nasal Cannula Nasal Cannula Room Air Oxygen Flow Rate FIO2% 07/02/23 20:10 07/02/23 20:10 07/02/23 19:00 Temperature Pulse Rate 67 Pulse Rate [Left Brachial] Respiratory Rate Blood Pressure [Left Arm] Blood Pressure [Right Arm] O2 Sat by Pulse Oximetry 97 Oxygen Delivery Method Nasal Cannula Heated High Flow NC Oxygen Flow Rate 4 FIO2% 36 07/02/23 23:43 07/03/23 04:00 07/03/23 08:18 Temperature 98.8 F Pulse Rate Pulse Rate [Left Brachial] 68 65 Respiratory Rate 20 20 Blood Pressure [Left Arm] Blood Pressure [Right Arm] 120/64 127/60 O2 Sat by Pulse Oximetry 96 98 Oxygen Delivery Method Room Air Nasal Cannula Heated High Flow NC Oxygen Flow Rate FIO2% 07/03/23 08:00 07/03/23 09:01 07/03/23 09:02 Temperature 98.2 F Pulse Rate 57 L Pulse Rate [Left Brachial] 65 Respiratory Rate 17 Blood Pressure [Left Arm] Blood Pressure [Right Arm] 117/58 O2 Sat by Pulse Oximetry 95 97 Oxygen Delivery Method Nasal Cannula Nasal Cannula Oxygen Flow Rate 4 FIO2% 36 Labs: Laboratory Last Values WBC 7.7 X10^3/uL (3.6-10.0) 07/03/23 05:28 RBC 4.67 X10^6/uL (3.5-5.4) 07/03/23 05:28 Hgb 14.7 g/dL (12.0-16.0) 07/03/23 05:28 Hct 44.0 % (36.0-47.0) 07/03/23 05:28 MCV 94.3 fL (80.0-100.0) 07/03/23 05:28 MCH 31.5 pg (27.0-34.0) 07/03/23 05:28 MCHC 33.4 g/dL (33.0-35.0) 07/03/23 05:28 RDW 12.6 % (11.6-16.5) 07/03/23 05:28 Plt Count 173 X10^3/uL (150.0-450.0) 07/03/23 05:28 MPV 8.1 fL (7.4-11.0) 07/03/23 05:28 Neut % (Auto) 61.0 % (42.0-75.0) 07/03/23 05:28 Lymph % (Auto) 29.7 % (21.0-51.0) 07/03/23 05:28 [place] % (Auto) 6.8 % (0.0-13.0) 07/03/23 05:28 Eos % (Auto) 2.3 % (0.9-2.9) 07/03/23 05:28 Baso % (Auto) 0.2 % (0.2-1.0) 07/03/23 05:28 Neut # (Auto) 4.7 x10^3/uL (2.2-4.8) 07/03/23 05:28 Lymph # (Auto) 2.3 X10^3/uL (1.3-2.9) 07/03/23 05:28 [place] # (Auto) 0.5 x10^3/uL (0.3-0.8) 07/03/23 05:28 Eos # (Auto) 0.2 x10^3/uL (0.0-0.2) 07/03/23 05:28 Baso # (Auto) 0.0 X10^3/uL (0.0-0.1) 07/03/23 05:28 Absolute Nucleated RBC 0.1 /100WBC 07/03/23 05:28 D-Dimer 0.71 ug/ml (0.0-0.57) H 06/30/23 10:35 Sample Site Lr 06/30/23 10:16 ABG pH 7.320 (7.35-7.45) L 06/30/23 10:16 ABG pCO2 64.0 mmHg (35.0-45.0) H* 06/30/23 10:16 ABG pO2 68.0 mmHg (80.0-100.0) L 06/30/23 10:16 ABG HCO3 33.0 mmol/L (22-26) H* 06/30/23 10:16 ABG O2 Saturation 92.0 % (90-100) 06/30/23 10:16 ABG Base Excess 5.1 mmol/L (-2.0-2.0) H 06/30/23 10:16 Richard Test Pos 06/30/23 10:16 A-a Gradient 244.0 mmHg 06/30/23 10:16 FiO2 55.0 06/30/23 10:16 Blood Gas Comments Pt prince well cdn 06/30/23 10:16 Sodium 146 mmol/L (136-145) H 07/03/23 05:28 Corrected Sodium 148 mmol/L (136-145) H 07/03/23 05:28 Potassium 3.8 mmol/L (3.5-5.1) 07/03/23 05:28 Chloride 110 mmol/L (98-107) H 07/03/23 05:28 Carbon Dioxide 31.9 mmol/L (21-32) 07/03/23 05:28 BUN 7 mg/dL (7-18) 07/03/23 05:28 Creatinine 0.60 mg/dL (0.55-1.02) 07/03/23 05:28 Est GFR (MDRD) Af Amer > 60 (>60) 07/03/23 05:28 Est GFR (MDRD) Non-Af > 60 (>60) 07/03/23 05:28 Glucose 176 mg/dL (65-99) H 07/03/23 05:28 POC Glucose (mg/dL) 182 mg/dL (65-99) H 07/03/23 05:08 Lactic Acid 1.4 mmol/L (0.4-2.0) 06/29/23 21:40 Calcium 8.8 mg/dL (8.5-10.1) 07/03/23 05:28 Corrected Calcium 10.2 mg/dL (8.5-10.1) H 07/03/23 05:28 Magnesium 2.4 mg/dL (2.0-2.9) 07/01/23 05:20 Total Bilirubin 0.40 mg/dL (0.2-1.0) 07/03/23 05:28 AST 14 Units/L (15-37) L 07/03/23 05:28 ALT 15 Units/L (12-78) 07/03/23 05:28 Alkaline Phosphatase 85 Units/L (46-116) 07/03/23 05:28 Creatine Kinase 37 Units/L (26-192) 06/29/23 21:40 Troponin I High Sens 14.2 ng/L (4.0-60.0) 06/29/23 21:40 Total Protein 6.4 g/dL (6.4-8.2) 07/03/23 05:28 Albumin 2.2 g/dL (3.4-5.0) L 07/03/23 05:28 Globulin 4.2 g/dL (2.5-4.5) 07/03/23 05:28 Albumin/Globulin Ratio 0.5 Ratio (1.1-2.1) L 07/03/23 05:28 Specimen Type Catherized urine 06/30/23 10:55 Urine Color Yellow (YELLOW) 06/30/23 10:55 Urine Appearance Hazy (CLEAR) 06/30/23 10:55 Urine pH 6.0 (5.0 - 8.0) 06/30/23 10:55 Ur Specific [place] 1.015 (1.000-1.030) 06/30/23 10:55 Urine Protein 2+ (NEGATIVE) 06/30/23 10:55 Urine Glucose (UA) 4+ (NEGATIVE) 06/30/23 10:55 Urine Ketones Negative (NEGATIVE) 06/30/23 10:55 Urine Blood 4+ (NEGATIVE) 06/30/23 10:55 Urine Nitrite Negative (NEGATIVE) 06/30/23 10:55 Urine Bilirubin Negative (NEGATIVE) 06/30/23 10:55 Urine Urobilinogen Normal (NORMAL) 06/30/23 10:55 Ur Leukocyte Esterase 3+ (NEGATIVE) 06/30/23 10:55 Urine RBC 10-20 /HPF (0-3) A 06/30/23 10:55 Urine WBC Tntc /HPF (0-5) A 06/30/23 10:55 Ur Squamous Epith Cells Few /HPF (NEGATIVE) 06/30/23 10:55 Amorphous Sediment 1+ /HPF (NEGATIVE) 06/29/23 23:18 Urine Bacteria 1+ /HPF (NEGATIVE) 06/30/23 10:55 Ur Culture Indicated? No/not indicated 06/30/23 10:55 Vancomycin Trough 16.3 ug/mL (15-20) 07/01/23 20:50 SARS-CoV-2 (PCR) Negative (NEGATIVE) 06/29/23 21:31 Influenza Type A (PCR) Negative (NEGATIVE) 06/29/23 21:31 Influenza Type B (PCR) Negative (NEGATIVE) 06/29/23 21:31 RSV (PCR) Negative (NEGATIVE) 06/29/23 21:31 Resp Viral Panel (PCR) See scanned report 06/30/23 01:45 Reason For Visit: HYPOXIA, lll PNEU, UTI, HYPERNATREMIA, AMS Discharge Date Discharge Date: 07/03/23 Discharge Diagnosis All Active Problems (Updated 07/02/23 @ 09:40 by Marisela Rice) Parainfluenza (Acute) Bacteremia (Acute) Acute respiratory failure with hypoxia and hypercapnia (Acute) Altered mental status (Acute) Acute UTI (Acute) Hypoxia (Acute) LLL pneumonia (Acute) Hypernatremia (Acute) Acute renal failure (ARF) (Acute) Brain TIA (Acute) Generalized weakness (Acute) COPD (chronic obstructive pulmonary disease) (Chronic) Diabetes mellitus (Chronic) GERD (gastroesophageal reflux disease) (Chronic) Hypertension (Chronic) Anxiety (Chronic) Cervical spine arthritis (Chronic) Plan of Treatment: Continue with present treatment and follow up plan. Pt is to keep follow up appointment as instructed and take medications as ordered. Discharge Medications Discharge Medications: niacin Allergy (Mild, Verified 06/26/20 17:13) ciprofloxacin Allergy (Unknown, Unverified 06/29/23 22:28) codeine Allergy (Unknown, Unverified 06/29/23 22:28) levofloxacin Allergy (Unknown, Unverified 06/29/23 22:28) tiotropium [From Spiriva with HandiHaler] Allergy (Unknown, Verified 06/29/23 22:28) topiramate Allergy (Unknown, Unverified 06/29/23 22:28) azithromycin Allergy (Verified 06/29/23 22:28) Corticosteroids (Glucocorticoids) Allergy (Verified 06/29/23 22:28) morphine Allergy (Verified 06/29/23 22:28) promethazine Allergy (Verified 06/29/23 22:28) CONTINUE taking the following medications furosemide 20 mg tablet (Lasix) 20 mg PO DAILY 06/30/23 [History] New Prescriptions cefdinir 300 mg capsule 300 mg PO BID 10 days #20 caps 07/03/23 [Rx] Discharge Disposition Assessment: No distress noted. Discharge Plan Discharge Plan Hospital Course: Patient is an 78 year old female admitted for bilateral pneumonia and acute cystitis. She is currently on 3-4L. Her hospital/treatment course included IV Vancomycin and Zosyn. Scheduled bronchodilators. IVF. Urine Cx: Klebsiella Oxytoca. AIT resp: Parainfluenza. Pt responded well to treatments and symptoms significantly improved. Rx cefdinir. She was discharged back to [facility] in stable condition with supplemental oxygen. Follow up with pcp. Patient Disposition: [facility] Condition: Stable Health Concerns: Post Hospitalization: new medications and changes needed to prevent readmission or further decline. Pt educated and given instructions on all concerns. Care Plan Goals: Problem: Infection Goal: Temperature within normal limits. Resolved infection. Instructions: Follow provided instructions. Follow up with primary physician as directed. Contact primary care physician or report to the closest Emergency Room if condition worsens. Plan of Treatment: Continue with present treatment and follow up plan. Pt is to keep follow up appointment as instructed and take medications as ordered. Assessment: No distress noted. Prescriptions: New cefdinir 300 mg Capsule 300 mg PO BID 10 Days Qty: 20 0RF No Action simvastatin 20 mg tablet 20 mg PO HS losartan 25 mg Tablet 25 mg PO DAILY ferrous fumarate [Ferrocite] 324 mg (106 mg iron) Tablet 324 mg PO DAILY Jardiance 10 mg tablet 10 mg PO DAILY famotidine [Pepcid] 40 mg Tablet 40 mg PO HS sennosides-docusate sodium 8.6-50 mg Tablet 1 tab PO BID gabapentin 400 mg capsule 400 mg PO BID Novolin R Regular U100 Insulin 100 unit/mL Solution 1 unit subcut DAILY Rx Instructions: sliding scale Refresh Relieva 0.5-0.9 % Drops 1 drp OPHTHALMIC (EYE) BID Rx Instructions: 1 drop in both eyes two times a day glipizide 10 mg tablet 10 mg PO DAILY memantine 10 mg tablet 10 mg PO BID donepezil 10 mg tablet 10 mg PO QDAY methenamine hippurate 1 gram Tablet 1 g PO BID ipratropium-albuterol [ipratropium-albuterol] 0.5 mg-3 mg(2.5 mg base)/3 mL solution for nebulization 1 neb NEB TID Qty: 50 1RF budesonide 0.5 mg/2 mL suspension for nebulization 1 ea NEB BIDRESP Qty: 50 1RF multivitamin Tablet 1 tab PO DAILY divalproex [Depakote] 250 mg Tablet,Delayed Release (Dr/Ec) 250 mg PO BID ascorbic acid (vitamin C) [Vitamin C] 500 mg Tablet 500 mg PO BID furosemide [Lasix] 20 mg Tablet 20 mg PO DAILY Orders to Discharge Patient Discharge Orders: Discharge (Routine); Ordered 07/03/23 Ordered By: Tai Saxena Follow ups/Referrals Follow ups/Referrals: Roby Meeks [STAFF PHYSICIAN] - (AMADEO will schedule follow up appointment with Dr. Meeks.) Instructions Stand Alone Forms: Post Hospital Follow Up Care
== END 2023-07-03 14:00 | DRG 948 ==
LOC: ER 21:19 → MED/SURG 06-30 00:27
PROVIDERS: ADMIT Family Medicine; ATTEND Internal Medicine
DX: E11.65 Type 2 diabetes mellitus with hyperglycemia; B96.89 Other specified bacterial agents as the cause of diseases classified elsewhere; I10 Essential (primary) hypertension; R53.1 Weakness; Z20.822 Contact with and (suspected) exposure to COVID-19; I25.10 Atherosclerotic heart disease of native coronary artery without angina pectoris; R41.0 Disorientation, unspecified; R40.0 Somnolence; N17.8 Other acute kidney failure; Z66 Do not resuscitate; B34.8 Other viral infections of unspecified site; N39.0 Urinary tract infection, site not specified; F41.8 Other specified anxiety disorders; J96.01 Acute respiratory failure with hypoxia; R79.1 Abnormal coagulation profile; J44.9 Chronic obstructive pulmonary disease, unspecified; J96.02 Acute respiratory failure with hypercapnia; J18.8 Other pneumonia, unspecified organism; E87.0 Hyperosmolality and hypernatremia; R06.02 Shortness of breath; K21.9 Gastro-esophageal reflux disease without esophagitis